=== PATIENT | female | born 1960 | race Caucasian/White ===

== ENCOUNTER → 2016-02-26 | Outpatient (CLI) | payer BC, OTHER ==
[2016-02-26 08:17] LABS: EKG EKG PERFORMED
[2016-02-26 08:42] LABS: Basophils % (A) 1 %; CH 29.5; CHCM 32.8; Eosinophils # (A) 0.1 k/uL (0-0.7); Eosinophils % (A) 3 %; HDW 2.27; HGB 12.1 gm/dL (11.4-16.0); Luc # (Auto) 0.12; Luc % (Auto) 3; Lymphocytes # (A) 1.3 k/uL (1.0-4.8); Lymphocytes % (A) 35 %; MCH 28.9 pg (25.0-35.0); MCV 90.4 fL (80.0-100.0); Mean Platelet Volume 7.9; Monocytes # (A) 0.3 k/uL (0-1.0); Monocytes % (A) 7 %; Neutrophils # (A) 1.8 k/uL (1.3-7.7); Neutrophils % (A) 50 %; RDW 12.7 % (11.5-15.5); WBC 3.7 k/uL (3.8-10.6); WBC (Perox) 3.93
[2016-02-26 08:59] LABS: Anion Gap 10 mmol/L; Carbon Dioxide 27 mmol/L (22-30); Chloride 106 mmol/L (98-107); Potassium 4.7 mmol/L (3.5-5.1); Sodium 143 mmol/L (137-145)
== END | disposition home or self-care (01) ==
LOC: LABPAT 07:53
PROVIDERS: ATTEND Orthopaedic Surgery
DX: Z01.810 Encounter for preprocedural cardiovascular examination (principal); Z01.812 Encounter for preprocedural laboratory examination; M23.91 Unspecified internal derangement of right knee
CPT/HCPCS: 36415; 80051; 85025; 93005

== ENCOUNTER 2016-03-11 07:40 | Day surgery (SDC) | payer BC, OTHER ==
[2016-03-08 08:59] VITALS: BMI 27.4
--- NOTE | 2016-03-10 15:01 | HP ---
DATE OF ADMISSION: 03/11/2016 Oneida Styles is a 55-year-old patient seen with progressive right knee pain. We discussed treatment options, she elected to proceed with right knee arthroscopy. Consent was obtained. PAST MEDICAL HISTORY: Noncontributory. PAST SURGICAL HISTORY: Lap band surgery. DAILY MEDICATIONS: Aspirin. ALLERGIES: None. SOCIAL HISTORY: Patient denies tobacco use. Physical evaluation of the right knee: Range of motion is -1 to 120 degrees. There is mild to moderate joint effusion present. Tenderness along the medial joint line. Positive medial Pascale's. Ligament is stable. Hip rotation without pain. Distal neurovascular exam intact. Radiographs of the right knee revealed osteoarthritic changes involving the medial and patellofemoral compartments. An MRI of the right knee revealed medial meniscal tear, intra-articular effusion and osteoarthritic changes. IMPRESSION: Internal derangement of right knee with medial meniscal tear. PLAN: Right knee arthroscopy with partial meniscectomy and debridement.
[~2016-03-11 07:40] MED LIST: DEXAMETHASONE SOD PHOSPHATE 10 MG/ML 1 ML VIAL IV ONE; LIDOCAINE 1% 20 ML VIAL (10MG/ML) FOR IV START INTRADERMA PRN; MIDAZOLAM 2 MG/2 ML VIAL IV PRN; ONDANSETRON 4 MG/2 ML VIAL IVP ONE; SCOPOLAMINE 1.5MG/72HR PATCH TRANSDERM ONE; ceFAZolin 2 GM in SODIUM CHLORIDE 0.9% 100 ML IVPB ONE
[2016-03-11] MEDS: LACTATED RINGERS 1,000 ML IV SCH ×2 (08:16→08:38)
[2016-03-11] MEDS ORDERED: LIDOCAINE 1% 20 ML VIAL (10MG/ML) FOR IV START INTRADERMA ONE (08:16)
[2016-03-11] MEDS ORDERED: LIDOCAINE 1% INJ 10MG/ML (20 ML MDV) ONE (08:40)
[2016-03-11] MEDS ORDERED: BUPIVACAIN-EPI 0.25%-1:200,000 30 ML VIAL INTRAARTIC ONE ×2 (08:40→09:23)
[2016-03-11] MEDS ORDERED: PHENYLEPHRINE-0.9% NACL SYG 1 MG/10 ML SYRINGE ONE (08:40)
[2016-03-11] MEDS ORDERED: PROPOFOL 10 MG/ML 20 ML VIAL IV ONE (08:40)
[2016-03-11] MEDS ORDERED: fentaNYL (PF) 50 MCG/ML 2 ML AMP ONE (08:40)
[2016-03-11] MEDS ORDERED: MIDAZOLAM 2 MG/2 ML VIAL ONE (08:40)
[2016-03-11] MEDS ORDERED: KETOROLAC 30 MG/ML 1 ML VIAL ONE (08:40)
[2016-03-11] MEDS ORDERED: LACTATED RINGERS 1,000 ML IV ONE (09:16)
--- NOTE | 2016-03-11 09:42 | P.OP ---
Date of Procedure: 03/11/16 Preoperative Diagnosis: Internal derangement right knee Postoperative Diagnosis: 1. Tear medial and lateral meniscus right knee 2. 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 Grade 1/2 chondromalacia lateral femoral condyle right knee 4. Grade 2 chondromalacia patella right knee 5. Reactive synovitis medial and suprapatellar compartments right knee 6. Loose body right knee Procedure(s) Performed: 1. Arthroscopic partial medial and lateral meniscectomy right knee 2. Arthroscopic chondroplasty medial femoral condyle right knee 3. Arthroscopic chondroplasty lateral femoral condyle right knee 4. Arthroscopic chondroplasty patella right knee 5. Arthroscopic partial synovectomy medial and suprapatellar compartments right knee 6. Arthroscopic removal loose body right knee Anesthesia: ABBY, local Surgeon: Roderick Sauceda Estimated Blood Loss (ml): 10 Pathology: none sent Condition: stable Disposition: PACU Indications for Procedure: 55-year-old patient seen with progressive right knee pain. After having treatment options discussed, she elected to proceed with right knee arthroscopy. Operative Findings: See description of procedure Description of Procedure: Patient was taken to the operative suite. Patient underwent a general anesthetic by the department of anesthesia. Patient was given preoperative antibiotics. The right lower extremity was placed in a well-padded arthroscopic leg goldstein. The right leg was prepped and draped in the normal sterile orthopedic fashion. A lateral parapatellar and suprapatellar incision was made. Trochars were inserted. Arthroscopy was initiated. Suprapatellar pouch revealed thick reactive synovitis. The patellofemoral joint appeared to articulate congruently. There was grade 2 chondromalacia small osteochondral tears. The scope was guided into the medial gutter. No loose bodies or plica were identified. The scope was then guided into the medial compartment. A medial parapatellar incision was made. Trocar inserted followed by probe. There was a complex tear involving the posterior horn medial meniscus which extended into the mid body. There were grade 3 and 4 chondromalacia changes of the medial femoral condyle and grade 3 chondromalacia changes of the medial tibial plateau. Reactive synovitis was noted anteriorly. A partial medial meniscectomy was performed on a stable tissue. I performed a chondroplasty of the medial femoral condyle and partial synovectomy. The residual meniscus and osteochondral surface were stable. Scope and probe were then guided into the intercondylar notch. Cruciates were identified, probed and found to be stable. I did encounter a small loose body which was removed with a pituitary without difficulty.. The scope and probe were then guided into lateral compartment. There was an discoid lateral meniscus present with a central tear. At this point a partial lateral meniscectomy was performed. There was grade 1/2 chondromalacia of the lateral femoral condyle with a small osteochondral tear. I used a motorized shaver and debrided that down to stable tissue. The residual osteochondral surface was stable as was the residual meniscus. The scope was in guided back into the suprapatellar compartment. I introduced a motorized shaver into the suprapatellar compartment. I debrided some piecemeal fragments of meniscus. I performed a partial synovectomy and chondroplasty of the patella. The shaver was removed. I took one more look around the entire knee, no residual debris. Instruments were now removed from the joint. The joint was infiltrated with .25% Marcaine. Steri-Strips were applied to the portal sites. Sterile dressings were applied. The patient was placed into a CONRAD hose. No tourniquet was utilized. The patient was awakened, transferred to a bed and taken to recovery stable satisfactory condition.
[2016-03-11 09:43] VITALS: TEMP 98.5
[2016-03-11] MEDS: HYDROmorphone 1 MG/ML 1 ML SYRINGE IVP PRN ×2 (10:03→10:18)
[2016-03-11 11:02] VITALS: PULSE 68
[2016-03-11] MEDS ORDERED: HYDROcodone/APAP 5-325MG 1 EACH TAB PO ONE (11:13)
[2016-03-11 11:26] VITALS: BP 117/74; RESP 16
== END 2016-03-11 11:56 | disposition home or self-care (01) ==
LOC: OR 07:40
PROVIDERS: ATTEND Orthopaedic Surgery
DX: S83.281A Other tear of lateral meniscus, current injury, right knee, initial encounter (principal); S83.241A Other tear of medial meniscus, current injury, right knee, initial encounter; X58.XXXA Exposure to other specified factors, initial encounter; M22.41 Chondromalacia patellae, right knee; M65.9 Synovitis and tenosynovitis, unspecified; M23.41 Loose body in knee, right knee; Z79.82 Long term (current) use of aspirin; Z98.84 Bariatric surgery status
CPT/HCPCS: 29880; 81025; J2250; J1100; J0690; J2405; J2001; J3010; J1885; J1170; J2370; J2704

== ENCOUNTER → 2016-07-16 | Outpatient (CLI) | payer BC, OTHER ==
[2016-07-16 21:33] LABS: Basophils % (A) 0 %; CH 29.3; CHCM 32.5; Eosinophils # (A) 0.2 k/uL (0-0.7); Eosinophils % (A) 3 %; HCT 38.8 % (34.0-46.0); HDW 2.26; HGB 12.8 gm/dL (11.4-16.0); Luc # (Auto) 0.16; Luc % (Auto) 4; Lymphocytes # (A) 1.4 k/uL (1.0-4.8); Lymphocytes % (A) 32 %; MCH 29.8 pg (25.0-35.0); MCV 90.5 fL (80.0-100.0); Mean Platelet Volume 8.6; Monocytes # (A) 0.3 k/uL (0-1.0); Monocytes % (A) 7 %; Neutrophils # (A) 2.5 k/uL (1.3-7.7); Neutrophils % (A) 55 %; RBC 4.29 m/uL (3.80-5.40); RDW 12.5 % (11.5-15.5); WBC 4.5 k/uL (3.8-10.6); WBC (Perox) 4.75
[2016-07-16 21:40] LABS: ALT 22 U/L (9-52); AST 17 U/L (14-36); Alkaline Phosphatase 54 U/L (38-126); Anion Gap 8 mmol/L; Blood Urea Nitrogen 11 mg/dL (7-17); Calcium 9.1 mg/dL (8.4-10.2); Carbon Dioxide 25 mmol/L (22-30); Chloride 108 mmol/L (98-107); Cholesterol 174 mg/dL (<200); Glucose 81 mg/dL (74-99); HDL Cholesterol 64 mg/dL (40-60); Non-African American GFR(MDRD) >60 (>60 ml/min/1.73 sqM); Potassium 4.6 mmol/L (3.5-5.1); Sodium 141 mmol/L (137-145); Total Bilirubin 0.8 mg/dL (0.2-1.3); Total Protein 6.5 g/dL (6.3-8.2); Triglycerides 81 mg/dL (<150)
== END | disposition home or self-care (01) ==
LOC: MMGSC 10:16
PROVIDERS: ATTEND Family Medicine
DX: Z00.00 Encounter for general adult medical examination without abnormal findings (principal)
CPT/HCPCS: 36415; 80053; 80061; 84439; 84443; 85025

== ENCOUNTER → 2016-10-25 | Outpatient (CLI) | payer BC, OTHER ==
[2016-10-25 14:47] VITALS: BP 143/63; PULSE 69; RESP 16; TEMP 98.3; BMI 28.2
--- NOTE | 2016-10-25 15:12 | P.HPBAR ---
Bariatric H&P - History & Physicial H&P Date: 10/25/16 History & Physicial: Visit/CC: band adj Patient initial contact: Initial weight: 99.79 kg Initial weight in pounds: 220.00 Height: 5 ft 6 in Initial BMI: 35.5 Last weight: Current weight: 79.407 kg Current weight in pounds: 175.00 Current BMI: 28.2 Boring body weight (based on NIH guidelines): 58.967 kg Excess body weight loss: 49.9% The patient is a 56 year-old F who presents for Bariatric Assessment. Patient presents for lab band follow up. She's not been seen several years. She feels hungry. She is requesting a fill Past Medical History Smoking Status: Never smoker Surgical - Exam Vital Signs Temp Pulse Resp BP 98.3 F 69 16 143/63 10/25/16 14:44 10/25/16 14:44 10/25/16 14:44 10/25/16 14:44 - General well developed, no distress - Eyes PERRL - ENT normal pinna - Neck no masses - Respiratory normal expansion - Abdomen Abdomen: soft, non tender Bariatric Assessment & Plan Plan: The patient's lap band was adjusted. She had 0.5 mL added to the band. She currently has 5 mL in the band. She'll follow-up in one month. Bariatric Checklist Checklist: Plan: Checklist: EGD: 1. Hiatal hernia: 2. H. Pylori: HgbA1c: Vitamin D: Smoking: Never smoker [place] Psychiatry clearance: Cardiology clearance: Sleep study: Diet journal: VTE risk score: VTE risk level: Rehab needs at discharge:
== END ==
LOC: BARWHC3 14:05
PROVIDERS: ATTEND Surgery
DX: Z48.815 Encounter for surgical aftercare following surgery on the digestive system (principal); Z98.84 Bariatric surgery status
CPT/HCPCS: 99212

== ENCOUNTER → 2016-11-01 | Outpatient (CLI) | payer BC, OTHER ==
[2016-11-01 13:52] VITALS: BP 116/59; PULSE 71; TEMP 97.9; BMI 27.3
--- NOTE | 2016-11-01 14:04 | P.HPBAR ---
Bariatric H&P - History & Physicial H&P Date: 11/01/16 History & Physicial: Visit/CC: lap band follow up Patient initial contact: Initial weight: 99.79 kg Initial weight in pounds: 220.00 Height: 5 ft 6 in Initial BMI: 35.5 Last weight: Current weight: 77.02 kg Current weight in pounds: 169.80 Current BMI: 27.3 [place] body weight (based on NIH guidelines): 58.967 kg Excess body weight loss: 55.7% The patient is a 56 year-old F who presents for Bariatric Assessment. Patient presents today for lap band follow up. She states she has some mild dysphagia. Past Medical History Additional Past Medical History / Comment(s): Blood clot in Left eye (origin unknown)...blood work/dx tests such as carotid u/s performed to determine etiology but remains unknown, History of Any Multi-Drug Resistant Organisms: None Reported Past Surgical History: No Surgical Hx Reported, Bariatric Surgery, Orthopedic Surgery, Tonsillectomy Additional Past Surgical History / Comment(s): Right knee meniscus repair (Feb 2016), Bariatric Lap band May 2009, bilateral cataract surgery (November 2013) , Tonsillectomy 1959's Past Anesthesia/Blood Transfusion Reactions: No Reported Reaction Additional Past Anesthesia/Blood Transfusion Reaction / Comm: No hx of blood transfusion Smoking Status: Never smoker Surgical - Exam Vital Signs Temp Pulse BP 97.9 F 71 116/59 11/01/16 13:47 11/01/16 13:47 11/01/16 13:47 - General well developed, no distress - Eyes PERRL - ENT normal pinna - Respiratory normal expansion - Cardiovascular Rhythm: regular - Abdomen Abdomen: soft, non tender Bariatric Assessment & Plan Plan: The patient's lap band was adjusted. 0.2 mL was removed for a band. She currently has 4.8 mL in the band. She will follow-up one month. Bariatric Checklist Checklist: Plan: Checklist: EGD: 1. Hiatal hernia: 2. H. Pylori: HgbA1c: Vitamin D: Smoking: Never smoker [place] Psychiatry clearance: Cardiology clearance: Sleep study: Diet journal: VTE risk score: VTE risk level: Rehab needs at discharge:
== END | disposition home or self-care (01) ==
LOC: BARWHC3 13:36
PROVIDERS: ATTEND Surgery
DX: Z09 Encounter for follow-up examination after completed treatment for conditions other than malignant neoplasm (principal); Z98.84 Bariatric surgery status
CPT/HCPCS: 99212

== ENCOUNTER → 2016-11-01 | Outpatient (CLI) | payer BC, OTHER ==
--- NOTE | 2016-11-01 12:29 | FL ---
SINGLE CONTRAST BARIUM SWALLOW: CLINICAL HISTORY: 56-year-old female with difficulty keeping food down since having a 0.5 cc fill on 10/25/2016. Patient with lap band placed in 2009. TECHNIQUE: Single contrast exam performed with thin barium. Total fluoroscopy time: 1.4 minutes. Total images: 10. FINDINGS: The assistant professor of biochemistry image shows appropriate positioning of the lap band. There is moderate stool with nonobstru ctive bowel gas pattern. Lung bases are clear. The initial swallow shows only a trickle of contrast that crosses the lap band into the stomach. The patient had a total of 3 small swallows which resulted in pooling of contrast within the esophagus to the mid thoracic level. Recurrent episodes of intraesophageal reflux are demonstrated. This persists at 5 minutes. At 10 minutes, a portion of this contrast has progressed into the stomach but with res idual contrast in the distal esophagus and gastric pouch. No abnormal dilatation of the gastric pouch IMPRESSION: 1. The orientation of the lap band appears appropriate arguing against lap band prolapse. 2. However, there is a moderate to severe obstruction at the level of the lap band suggesting that it may be overfilled. Clinically correlate.
== END ==
LOC: RADFLWHC 11:01
PROVIDERS: ATTEND Surgery
DX: R13.10 Dysphagia, unspecified (principal)
CPT/HCPCS: 74220

== ENCOUNTER → 2017-09-16 | Outpatient (CLI) | payer BC, OTHER ==
--- NOTE | 2017-09-16 16:49 | US ---
EXAMINATION TYPE: US transvaginal DATE OF EXAM: 09/16/2017 COMPARISON: NONE CLINICAL HISTORY: N93.8 Dysfunctional Uterine Bleeding. SPotting on and off TECHNIQUE: Transvaginal sonographic images of the pelvis were acquired. Date of LMP: 1 week ago EXAM MEASUREMENTS: Uterus: 8.8 x 4.7 x 5.2 cm Endometrial Stripe: 0.9 cm Right Ovary: 2.3 x 1.1 x 2.1 cm Left Ovary: 3.2 x 2.0 x 2.0 cm 1. Uterus: Anteverted wnl 2. Endometrium: wnl 3. Right Ovary: wnl 4. Left Ovary: Simple appearing Cystic area visualized measuring 1.4 x 1.4 x 1.3 cm 5. Bilateral Adnexa: wnl 6. Posterior cul-de-sac: wnl IMPRESSION: 1. Cyst on left ovary. Follow-up 6 weeks is recommended.
== END | disposition home or self-care (01) ==
LOC: RADUSWWP 15:33
PROVIDERS: ATTEND Family Medicine
DX: N83.202 Unspecified ovarian cyst, left side (principal)
CPT/HCPCS: 76830

== ENCOUNTER → 2017-12-01 | Outpatient (CLI) | payer BC, OTHER ==
--- NOTE | 2017-12-01 08:20 | US ---
EXAMINATION TYPE: US transvaginal DATE OF EXAM: 12/01/2017 COMPARISON: 09/16/2017 CLINICAL HISTORY: 57-year-old female N83.292 L OVARIAN CYST. F/U previous ovarian cyst TECHNIQUE: Transvaginal (TV). Transvaginal sonographic images of the pelvis were acquired. Date of LMP: SEP 2017 FINDINGS: EXAM MEASUREMENTS: Uterus: 10.3 x 5.5 x 7.4 cm Endometrial Stripe: 1.4 cm Right Ovary: 2.7 x 2.6 x 2.0 cm Left Ovary: 2.8 x 2.6 x 2.2 cm 1. Uterus: Anteverted. Slightly heterogeneous echotexture. 2. Endometrium: Measures at the upper limits of normal in thickness with tiny 2 mm cystic area withi n 3. Right Ovary: Dominant follicle measuring 1.6 x 1.5 x 1.6 cm 4. Left Ovary: Multiple follicles are now present measuring up to 1.4 cm. There is no dominant cyst identified. 5. Bilateral Adnexa: wnl 6. Posterior cul-de-sac: wnl IMPRESSION: 1. Multiple follicular change now noted in the left ovary. No dominant follicle/cyst is present. The largest measures 1.4 cm. 2. A 1.6 cm dominant follicle in the right ovary. 3. The endometrial thickness is at the upper limits of normal (1.4 cm). This should correspond to the late secretory phase of the menstrual cycle. Clinically correlate. A tiny 2 mm cystic area within co uld reflect developing menstrual bleeding. Correlate to ensure status is negative.
== END | disposition home or self-care (01) ==
LOC: RADUSWWP 07:32
PROVIDERS: ATTEND Family Medicine
DX: N83.292 Other ovarian cyst, left side (principal)
CPT/HCPCS: 76830

== ENCOUNTER → 2018-05-25 | Outpatient (CLI) | payer BC, OTHER ==
[2018-05-25 09:22] LABS: Basophils # (A) 0.1 k/uL (0-0.2); Basophils % (A) 1 %; Eosinophils # (A) 0.3 k/uL (0-0.7); Eosinophils % (A) 6 %; HCT 39.4 % (34.0-46.0); HGB 12.5 gm/dL (11.4-16.0); Lymphocytes # (A) 1.9 k/uL (1.0-4.8); Lymphocytes % (A) 35 %; MCH 27.4 pg (25.0-35.0); MCHC 31.8 g/dL (31.0-37.0); MCV 86.3 fL (80.0-100.0); Mean Platelet Volume 6.8; Monocytes # (A) 0.4 k/uL (0-1.0); Monocytes % (A) 8 %; Neutrophils # (A) 2.6 k/uL (1.3-7.7); Neutrophils % (A) 47 %; Platelet Count 311 k/uL (150-450); RBC 4.57 m/uL (3.80-5.40); RDW 14.3 % (11.5-15.5); WBC 5.5 k/uL (3.8-10.6)
== END | disposition home or self-care (01) ==
LOC: LABWHC1 08:40
PROVIDERS: ATTEND Family Medicine
DX: R59.9 Enlarged lymph nodes, unspecified (principal)
CPT/HCPCS: 36415; 85025

== ENCOUNTER 2018-05-26 18:17 | Observation (INO) | payer BC, OTHER ==
[2018-05-26] MEDS ORDERED: SODIUM CHLORIDE 0.9% 1,000 ML IV STA ×2 (18:59)
--- NOTE | 2018-05-26 19:02 | ED ---
Dizziness HPI - General Chief Complaint: Dizziness Stated Complaint: HEADACHE, DIZZINESS, SWOLLEN GLANDS Time Seen by Provider: 05/26/18 18:47 Source: patient, family, RN notes reviewed, old records reviewed Mode of arrival: ambulatory Limitations: no limitations - History of Present Illness Initial Comments: This is a 57-year-old female the ER for evaluation. She presents today for evaluation regards to not feeling well. Patient started with swollen lymph nodes on a cruise a [place] ago. This progressed to neck pain weakness dizziness neck pain muscle strains myalgias headaches. Patient has been seeing her family doctor with no significant improvement in symptoms. Symptoms have been persistent no better or worse times one month. Patient occasionally has headaches,, occasionally works. No fevers. MD Complaint: dizziness, lightheadedness -: week(s) Timing: gradual onset Description: lightheadedness, nausea, other (neck pain) History of Same: Yes History of Trauma: No Severity: moderate Improves With: nothing Worsens With: nothing Associated Symptoms: loss of appetite, weakness - Related Data Home Medications Medication Instructions Recorded Confirmed Aspirin [Adult Low Dose Aspirin EC] 81 mg PO DAILY 03/08/16 05/26/18 Acetaminophen/Diphenhydramine 1 tab PO HS PRN 05/26/18 05/26/18 [Tylenol PM 500-25mg] Letrozole [Femara] 2.5 mg PO BID 05/26/18 05/26/18 Allergies Allergy/AdvReac Type Severity Reaction Status Date / Time No Known Allergies Allergy Verified 05/26/18 18:42 Review of Systems ROS Statement: Those systems with pertinent positive or pertinent negative responses have been documented in the HPI. ROS Other: All systems not noted in ROS Statement are negative. Past Medical History Additional Past Medical History / Comment(s): Blood clot in Left eye (origin unknown)...blood work/dx tests such as carotid u/s performed to determine etiology but remains unknown, History of Any Multi-Drug Resistant Organisms: None Reported Past Surgical History: No Surgical Hx Reported, Bariatric Surgery, Orthopedic Surgery, Tonsillectomy Additional Past Surgical History / Comment(s): Right knee meniscus repair (Feb 2016), Bariatric Lap band May 2009, bilateral cataract surgery (November 2013), Tonsillectomy 1959's, lin carpal tunnel Past Anesthesia/Blood Transfusion Reactions: No Reported Reaction Additional Past Anesthesia/Blood Transfusion Reaction / Comment(s): No hx of blood transfusion Past Psychological History: No Psychological Hx Reported Smoking Status: Never smoker Past Alcohol Use History: None Reported Past Drug Use History: None Reported General Exam Limitations: no limitations General appearance: alert, in no apparent distress Head exam: Present: atraumatic, normocephalic, normal inspection Eye exam: Present: normal appearance, PERRL, EOMI. Absent: scleral icterus, conjunctival injection, periorbital swelling ENT exam: Present: normal exam, mucous membranes moist Neck exam: Present: normal inspection. Absent: tenderness, meningismus, lymphadenopathy Respiratory exam: Present: normal lung sounds bilaterally. Absent: respiratory distress, wheezes, rales, rhonchi, stridor Cardiovascular Exam: Present: regular rate, normal rhythm, normal heart sounds. Absent: systolic murmur, diastolic murmur, rubs, gallop, clicks GI/Abdominal exam: Present: soft, normal bowel sounds. Absent: distended, tenderness, guarding, rebound, rigid Extremities exam: Present: normal inspection, full ROM, normal capillary refill. Absent: tenderness, pedal edema, joint swelling, calf tenderness Back exam: Present: normal inspection Neurological exam: Present: alert, oriented X3, CN II-XII intact Psychiatric exam: Present: normal affect, normal mood Skin exam: Present: warm, dry, intact, normal color. Absent: rash Course Vital Signs 05/26/18 05/26/18 18:31 20:26 Temperature 98.5 F Pulse Rate 99 81 Respiratory 18 19 Rate Blood Pressure 112/67 115/58 O2 Sat by Pulse 98 99 Oximetry - Reevaluation(s) Reevaluation #1: 05/26/18 19:01 medical record is reviewed including prior labs EKG Findings - EKG Comments: EKG Findings:: EKG shows sinus rhythm rate 95, W[place] 150, QRS 170, QTc 512 Medical Decision Making - Medical Decision Making 57 female to the ED co neck pain, weakness, not feeling well, elevated BNP, as well as troponin Leak, will admit for further cardiology evaluation - Lab Data Result diagrams: 05/26/18 18:45 05/26/18 18:45 Lab Results 05/26/18 05/26/18 05/26/18 Range/Units 18:45 18:45 18:45 WBC 8.9 (3.8-10.6) k/uL RBC 4.49 (3.80-5.40) m/uL Hgb 12.5 (11.4-16.0) gm/dL Hct 38.4 (34.0-46.0) % MCV 85.5 (80.0-100.0) fL MCH 27.9 (25.0-35.0) pg MCHC 32.6 (31.0-37.0) g/dL RDW 14.9 (11.5-15.5) % Plt Count 333 (150-450) k/uL Neutrophils % 61 % Lymphocytes % 24 % Monocytes % 8 % Eosinophils % 2 % Basophils % 0 % Neutrophils # 5.5 (1.3-7.7) k/uL Lymphocytes # 2.2 (1.0-4.8) k/uL Monocytes # 0.8 (0-1.0) k/uL Eosinophils # 0.2 (0-0.7) k/uL Basophils # 0.0 (0-0.2) k/uL PT 10.3 (9.0-12.0) sec INR 1.0 (<1.2) APTT 23.9 (22.0-30.0) sec D-Dimer 0.43 (<0.60) mg/L FEU Sodium 138 (137-145) mmol/L Potassium 4.3 (3.5-5.1) mmol/L Chloride 105 (98-107) mmol/L Carbon Dioxide 26 (22-30) mmol/L Anion Gap 7 mmol/L BUN 13 (7-17) mg/dL Creatinine 0.82 (0.52-1.04) mg/dL Est GFR (CKD-EPI)AfAm >90 (>60 ml/min/1.73 sqM) Est GFR (CKD-EPI)NonAf 81 (>60 ml/min/1.73 sqM) Glucose 132 H (74-99) mg/dL Calcium 9.6 (8.4-10.2) mg/dL Phosphorus 5.0 H (2.5-4.5) mg/dL Magnesium 2.0 (1.6-2.3) mg/dL Total Bilirubin 0.6 (0.2-1.3) mg/dL AST 38 H (14-36) U/L ALT 48 (9-52) U/L Alkaline Phosphatase 106 (38-126) U/L Troponin I (0.000-0.034) ng/mL NT-Pro-B Natriuret Pep pg/mL Total Protein 6.2 L (6.3-8.2) g/dL Albumin 3.7 (3.5-5.0) g/dL 05/26/18 05/26/18 Range/Units 18:45 18:45 WBC (3.8-10.6) k/uL RBC (3.80-5.40) m/uL Hgb (11.4-16.0) gm/dL Hct (34.0-46.0) % MCV (80.0-100.0) fL MCH (25.0-35.0) pg MCHC (31.0-37.0) g/dL RDW (11.5-15.5) % Plt Count (150-450) k/uL Neutrophils % % Lymphocytes % % Monocytes % % Eosinophils % % Basophils % % Neutrophils # (1.3-7.7) k/uL Lymphocytes # (1.0-4.8) k/uL Monocytes # (0-1.0) k/uL Eosinophils # (0-0.7) k/uL Basophils # (0-0.2) k/uL PT (9.0-12.0) sec INR (<1.2) APTT (22.0-30.0) sec D-Dimer (<0.60) mg/L FEU Sodium (137-145) mmol/L Potassium (3.5-5.1) mmol/L Chloride (98-107) mmol/L Carbon Dioxide (22-30) mmol/L Anion Gap mmol/L BUN (7-17) mg/dL Creatinine (0.52-1.04) mg/dL Est GFR (CKD-EPI)AfAm (>60 ml/min/1.73 sqM) Est GFR (CKD-EPI)NonAf (>60 ml/min/1.73 sqM) Glucose (74-99) mg/dL Calcium (8.4-10.2) mg/dL Phosphorus (2.5-4.5) mg/dL Magnesium (1.6-2.3) mg/dL Total Bilirubin (0.2-1.3) mg/dL AST (14-36) U/L ALT (9-52) U/L Alkaline Phosphatase (38-126) U/L Troponin I 0.028 (0.000-0.034) ng/mL NT-Pro-B Natriuret Pep 2420 pg/mL Total Protein (6.3-8.2) g/dL Albumin (3.5-5.0) g/dL - Radiology Data Radiology results: report reviewed (CXR is negative for acute diseae, CT brain soft tissue neck orbits negative for acute disaese), image reviewed Disposition Clinical Impression: Neck pain, Elevated troponin, Weakness Disposition: ADMITTED IP TO THIS HOSP Condition: Fair Is patient prescribed a controlled substance at d/c from ED?: No Referrals: Venice Saavedra MD [Primary Care Provider] - 1-2 days
[2018-05-26 19:14] LABS: Basophils % (A) 0 %; Eosinophils # (A) 0.2 k/uL (0-0.7); Eosinophils % (A) 2 %; HCT 38.4 % (34.0-46.0); HGB 12.5 gm/dL (11.4-16.0); Lymphocytes # (A) 2.2 k/uL (1.0-4.8); Lymphocytes % (A) 24 %; MCH 27.9 pg (25.0-35.0); MCHC 32.6 g/dL (31.0-37.0); MCV 85.5 fL (80.0-100.0); Mean Platelet Volume 6.8; Monocytes # (A) 0.8 k/uL (0-1.0); Monocytes % (A) 8 %; Neutrophils # (A) 5.5 k/uL (1.3-7.7); Neutrophils % (A) 61 %; Platelet Count 333 k/uL (150-450); RBC 4.49 m/uL (3.80-5.40); RDW 14.9 % (11.5-15.5); WBC 8.9 k/uL (3.8-10.6)
--- NOTE | 2018-05-26 19:20 | XR ---
EXAMINATION TYPE: XR chest 2V DATE OF EXAM: 05/26/2018 COMPARISON: NONE HISTORY: Weakness TECHNIQUE: Frontal and lateral views of the chest are obtained. FINDINGS: Heart and mediastinum are normal. Lungs are clear of infiltrate. Costophrenic angles are c lear. There are probably small calcified granuloma at the pulmonary usha. There is no pleural effusio n. Bony thorax is intact. There are chest leads. IMPRESSION: No active cardiopulmonary disease.
[2018-05-26 19:31] LABS: ALT 48 U/L (9-52); AST 38 U/L (14-36); Albumin 3.7 g/dL (3.5-5.0); Alkaline Phosphatase 106 U/L (38-126); Anion Gap 7 mmol/L; Blood Urea Nitrogen 13 mg/dL (7-17); Calcium 9.6 mg/dL (8.4-10.2); Carbon Dioxide 26 mmol/L (22-30); Chloride 105 mmol/L (98-107); Glucose 132 mg/dL (74-99); Potassium 4.3 mmol/L (3.5-5.1); Sodium 138 mmol/L (137-145); Total Bilirubin 0.6 mg/dL (0.2-1.3); Total Protein 6.2 g/dL (6.3-8.2)
[2018-05-26 19:49] LABS: D-Dimer 0.43 mg/L FEU (<0.60); Partial Thromboplastin Time 23.9 sec (22.0-30.0); Prothrombin Time 10.3 sec (9.0-12.0)
--- NOTE | 2018-05-26 20:33 | CT ---
EXAMINATION TYPE: CT brain wo con DATE OF EXAM: 05/26/2018 COMPARISON: None HISTORY: headaches, dizziness CT DLP: 1146.6 mGycm Automated exposure control for dose reduction was used. FINDINGS: Ventricles and sulci appear normal. There is no mass effect nor midline shift. There is no sign of in tracranial hemorrhage. The calvarium is intact. There is 4 mm area of calcification in the anterior l eft thalamus. IMPRESSION: NO ACUTE INTRACRANIAL ABNORMALITY. NO EVIDENCE OF CORTICAL INFARCT OR CEREBRAL EDEMA.
[2018-05-26] MEDS ORDERED: NITROGLYCERIN SL TABS 0.4 MG TAB SUBLINGUAL PRN (20:35)
[2018-05-26] MEDS ORDERED: ASPIRIN 81 MG PO STA (20:35)
--- NOTE | 2018-05-26 20:35 | CT ---
EXAMINATION TYPE: CT facial bones w con DATE OF EXAM: 05/26/2018 COMPARISON: None HISTORY: headaches, dizziness CT DLP: 378.7 mGycm Automated exposure control for dose reduction was used. CONTRAST: CT scan of the facial bones is performed with IV Contrast, patient injected with 100 mL of Isovue 300 . TECHNIQUE: CT scan of the sinuses is performed without contrast, axial images are obtained, coronal r eformatted images are also reviewed. FINDINGS: Submandibular salivary glands are symmetric. Mandibular ring is intact. The maxilla is inta ct. The zygomatic arches appear normal. There is fairly normal aeration of the paranasal sinuses. The re is some mucosal thickening right frontal sinus. Nasal bone is intact. Orbital margins are intact. There is no evidence of retro-orbital mass. There is no pathologic enhancement. IMPRESSION: Minimal right frontal sinusitis. Otherwise negative exam.
--- NOTE | 2018-05-26 20:43 | CT ---
EXAMINATION TYPE: CT soft tissue neck w con DATE OF EXAM: 05/26/2018 8:11 PM COMPARISON: None HISTORY: sore throat, swelling CT DLP: 215.1 mGycm Automated exposure control for dose reduction was used. CONTRAST: CT scan of the neck is performed following with IV Contrast, patient injected with 100 mL of Isovue 3 00. Axial images are obtained, coronal and sagittal reformatted images are reviewed. FINDINGS: Multiple axial sections were obtained from the level of the aortic arch to the frontal sinuses with i ntravenous contrast. The visualized trachea appears normal. Epiglottis appears normal. Prevertebral soft tissues appear no rmal. Tonsils and adenoids are within normal limits. There is no evidence of a pharyngeal mass. The t ongue appears normal. There is normal branching pattern of the great vessels on the aortic arch. There is no sign of medias tinal adenopathy. Thyroid gland is symmetric. There is normal contrast opacification of the carotid a nd vertebral arteries. There is normal contrast opacification of the jugular veins. There are anterio r triangle cervical lymph nodes measure up to 1 cm. I see no significant cervical adenopathy. The submandibular salivary glands are symmetric. Parotid glands are symmetric. IMPRESSION: Negative CT scan of the cervical soft tissues.
[2018-05-26] MEDS ORDERED: SODIUM CHLORIDE 0.9% 1,000 ML IV SCH (20:45)
[2018-05-26] MEDS ORDERED: ACETAMINOPHEN TAB 325 MG TAB PO PRN (22:07)
[2018-05-26] MEDS ORDERED: NALOXONE 0.4 MG/ML 1 ML VIAL IV PRN (22:07)
[2018-05-26] MEDS ORDERED: ONDANSETRON 4 MG/2 ML VIAL IVP PRN (22:07)
[2018-05-26] MEDS ORDERED: NON-FORMULARY DRUG (Acetaminophen/Diphenhydramine [Tylenol Pm 500-25mg] 1 TAB) PO PRN (22:09)
[2018-05-26] MEDS ORDERED: BUTALB/APAP/CAFF 50-325-40MG TAB PO PRN (22:15)
[2018-05-26] MEDS ORDERED: FLUTICASONE 50MCG/SPRAY NASAL 16GM EA NOSTRIL PRN (22:16)
--- NOTE | 2018-05-26 22:16 | P.HPIM ---
History of Present Illness H&P Date: 05/26/18 Chief Complaint: headache Patient is a 57-year-old female with no known past medical history who presents the ER with multiple complaints including neck pain, dizziness, and headache. In the ER she underwent an extensive evaluation. Her initial vital signs were found to be within normal limits. Initial laboratory analysis was remarkable for an elevated phosphorus at 5 and an elevated BNP at 2400. Initial EKG did not show any ischemic changes. She underwent a CT head which showed right frontal sinusitis. She underwent a CT soft tissue neck which showed no acute process and a facial CT which showed no acute process. There is concern for her elevated BNP and she was therefore placed in observation. Patient seen and examined at bedside in the ER. She reports that she came to the ER today because her headache was so bad she could no longer function. She states that for the last 1 month she has had a headache every day on waking that lasts throughout the day. She states it occurred at the base of her skull on both sides and around her eyes. She states that Tylenol has not been helping. She has never had headaches like this before. She denies any associated nausea or vomiting. She does not have problems tolerating heat or cold. She also complains of some pain in her upper back but she does work full-time at a part- time job. She denies any numbness or tingling down into her fingers or hands or weakness of her shoulders or hands. She reports that today she got short of breath walking up the stairs this is unusual for her. She walks up 2 flights of stairs every day and today she had to rest in between flights. She also reports that when she came out of the shower today she felt extremely dizzy and had to lay back down. This quickly passed. It was not associated with any chest pain, shortness of breath, palpitations. She reports that she went on a cruise approximately one month ago and has not felt right since. She reports that she had some small lymphadenopathy on a cruise. She saw Dr. Kent approximately one week ago was noted to have swollen lymph nodes. She states that Dr. Renetta Huizar also noted an 11 pound weight loss over 6 months. Of time and wanted her referred to oncology. She had a mammogram last month which was normal. She also reports that she's had a colonoscopy in the past and believe she is due for another 1 and she had polyps. She denies any bright red blood in her stools or dark tarry stools. She is not having any dysuria. She just overall feels the canal. She also reports neck pain at the front of her neck along the area of her carotid arteries it is bilateral. It is worse with movement. She reports that it feels as though she is going to get a sore throat. She denies any co ugh, cold, runny nose, or stuffy nose. She is frustrated that she has not started feeling better. She also reports that she started menopause approximately one month ago. She's been having hot flashes and has been unable to sleep at night. She started on Femara 3 days ago and her sleep has improved up until last night. Review of Systems Pertinent positives and negatives as discussed in HPI, a complete review of systems was performed and all other systems are negative. Past Medical History Additional Past Medical History / Comment(s): Blood clot in Left eye (origin unknown)...blood work/dx tests such as carotid u/s performed to determine etiology but remains unknown, History of Any Multi-Drug Resistant Organisms: None Reported Past Surgical History: No Surgical Hx Reported, Bariatric Surgery, Orthopedic Surgery, Tonsillectomy Additional Past Surgical History / Comment(s): Right knee meniscus repair (Feb 2016), Bariatric Lap band May 2009, bilateral cataract surgery (November 2013), Tonsillectomy , lin carpal tunnel Past Anesthesia/Blood Transfusion Reactions: No Reported Reaction Additional Past Anesthesia/Blood Transfusion Reaction / Comment(s): No hx of blood transfusion Past Psychological History: No Psychological Hx Reported Smoking Status: Never smoker Past Alcohol Use History: None Reported Past Drug Use History: None Reported Additional History: Lives with her and adult daughter. 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 Reports no family hx of cancer or heart disease Medications and Allergies Home Medications Medication Instructions Recorded Confirmed Type Aspirin [Adult Low Dose Aspirin EC] 81 mg PO DAILY 03/08/16 05/26/18 History Acetaminophen/Diphenhydramine 1 tab PO HS PRN 05/26/18 05/26/18 History [Tylenol PM 500-25mg] Letrozole [Femara] 2.5 mg PO BID 05/26/18 05/26/18 History Allergies Allergy/AdvReac Type Severity Reaction Status Date / Time No Known Allergies Allergy Verified 05/26/18 18:42 Physical Exam Osteopathic Statement: *. No significant issues noted on an osteopathic structural exam other than those noted in the History and Physical/Consult. Vitals: Vital Signs Temp Pulse Resp BP Pulse Ox 05/26/18 20:26 81 19 115/58 99 05/26/18 18:31 98.5 F 99 18 112/67 98 Intake and Output 05/26/18 05/26/18 05/26/18 06:59 14:59 22:59 Other: Weight 73.663 kg General: non toxic, no distress, appears at stated age, normal weight Derm: no unusual rashes/lesions no unusual ecchymoses, warm, dry Head: atraumatic, normocephalic, symmetric Eyes: EOMI, no lid lag, anicteric sclera, pupils equal round reactive to light ENT: Nose and ears atraumatic, no thrush, no pharyngeal erythema Neck: No thyromegaly, no cervical lymphadenopathy, trachea midline, supple Mouth: no lip lesion, mucus membranes moist Cardiovascular: S1S2 reg, no murmur, positive posterior tibial pulse bilateral, no edema, capillary refill less than 2 seconds Lungs: CTA bilateral, no rhonchi, no rales , no accessory muscle use Abdominal: soft, nontender to palpation, no guarding, no appreciable organomegaly, normal bowel sounds Ext: no gross muscle atrophy, muscle strength 5 out of 5 in all 4 extremities grossly, no contractures, Neuro: CN II-XI grossly intact, light touch intact all 4 extremities, finger to nose within normal limits, Psych: Alert, oriented, appropriate affect Results CBC & Chem 7: 05/26/18 18:45 05/26/18 18:45 Labs: Abnormal Lab Results - Last 24 Hours (Table) 05/26/18 Range/Units 18:45 Glucose 132 H (74-99) mg/dL Phosphorus 5.0 H (2.5-4.5) mg/dL AST 38 H (14-36) U/L Total Protein 6.2 L (6.3-8.2) g/dL Comments: CT head-no acute intracranial abnormality CT cervical soft tissues of the neck-negative CT facial bone-minimal right frontal sinusitis Thrombosis Risk Factor Assmnt - DVT/VTE Prophylaxis DVT/VTE Prophylaxis: Low risk, early ambulation encouraged Assessment and Plan Assessment: Headache, neck ache, dizziness -Suspect secondary to changes associated with menopause -Check telemetry, orthostatic vital signs -Fioricet for headache -stop Femara as this is an aromatase inhibitor and worsen the symptoms of menopause. -? side effects of femara with dizziness starting after medication started Exercise intolerance with elevated BNP - check echo - tele - orthostatic vital signs - D-Dimer negative - check B 12 and ferritin levels, TSH normal on 05/19/18 Perimenopausal symptoms -stop Femara as this is an aromatase inhibitor and is not indicated for perimenopausal state that is used with breast cancer treatment and can actually worsen the signs and symptoms of menopause. The patient is placed in observation with an anticipated less than 2 per night stay for evaluation of headache. Surrogate decision-maker: DVT prophylaxis: Early ambulation Discussed with: Patient Anticipated discharge date: in AM if echo negative Anticipated discharge place: home A total of 70 minutes was spent on the care of this complex patient more than 50% of the time was spent in counseling and care coordination.
[2018-05-27 06:38] LABS: Cholesterol 201 mg/dL (<200); HDL Cholesterol 43 mg/dL (40-60); LDL Cholesterol,Calculated 134 mg/dL (0-99); Triglycerides 122 mg/dL (<150)
[2018-05-27 06:51] LABS: Glucose,Whole Blood 89 mg/dL (75-99)
[2018-05-27] MEDS ORDERED: LORATADINE 10 MG TAB PO SCH (09:00)
[2018-05-27] MEDS ORDERED: ASPIRIN 325 MG TAB PO SCH (09:00)
[2018-05-27 09:09] VITALS: RESP 16
[2018-05-27 10:39] LABS: Iron Saturation 39.68 (12.00-45.00)
--- NOTE | 2018-05-27 10:57 | ECHOF ---
Referral Reason:cp MEASUREMENTS -------- HEIGHT: 165.1 cm WEIGHT: 73.5 kg BP: RVIDd: 3.0 cm (< 3.3) IVSd: 1.3 cm (0.6 - 1.1) LVIDd: 4.0 cm (3.9 - 5.3) LVPWd: 1.5 cm (0.6 - 1.1) IVSs: 1.5 cm LVIDs: 2.8 cm LVPWs: 1.7 cm LA Diam: 3.8 cm (2.7 - 3.8) LAESV Index (A-L): 35.29 ml/m Ao Diam: 2.8 cm (2.0 - 3.7) AV Cusp: 1.3 cm (1.5 - 2.6) LA Diam: 4.0 cm (2.7 - 3.8) MV EXCURSION: 25.683 mm (> 18.000) MV EF SLOPE: 90 mm/s (70 - 150) EPSS: 0.3 cm MV E Quinn: 0.74 m/s MV DecT: 208 ms MV A Quinn: 0.65 m/s MV E/A Ratio: 1.13 RAP: 5.00 mmHg RVSP: 20.69 mmHg FINDINGS -------- Sinus rhythm. This was a technically good study. The left ventricular size is normal. There is mild concentric left ventricular hypertrophy. Overa ll left ventricular systolic function is normal with, an EF between 55 - 60 %. The right ventricle is normal in size. The left atrium is moderately dilated. LA is moderately dilated 34-39 ml/m2 The right atrial size is normal. ASD VS PFO. There is mild aortic valve sclerosis. Trace amount of aortic regurgitation. The mitral valve leaflets are mildly thickened. Mild mitral annular calcification present. Mild m itral regurgitation is present. Mild tricuspid regurgitation present. There is no evidence of pulmonary hypertension. The right v entricular systolic pressure, as measured by Doppler, is 20.69mmHg. There is no pulmonic regurgitation present. The aortic root size is normal. There is a trivial pericardial effusion present. CONCLUSIONS -------- 1. The left ventricular size is normal. 2. There is mild concentric left ventricular hypertrophy. 3. Overall left ventricular systolic function is normal with, an EF between 55 - 60 %. 4. The right ventricle is normal in size. 5. The left atrium is moderately dilated. 6. LA is moderately dilated 34-39 ml/m2 7. The right atrial size is normal. 8. ASD VS PFO. 9. There is mild aortic valve sclerosis. 10. Trace amount of aortic regurgitation. 11. The mitral valve leaflets are mildly thickened. 12. Mild mitral annular calcification present. 13. Mild mitral regurgitation is present. 14. Mild tricuspid regurgitation present. 15. There is no evidence of pulmonary hypertension. 16. The right ventricular systolic pressure, as measured by Doppler, is 20.69mmHg. 17. There is no pulmonic regurgitation present. 18. The aortic root size is normal. 19. There is a trivial pericardial effusion present. MANAGER MONEY: Anastasia Brennan RDCS
[2018-05-27 12:22] VITALS: BP 104/70; PULSE 83; TEMP 98.2
--- NOTE | 2018-05-27 13:10 | P.DS ---
Providers Date of admission: 05/26/18 20:36 Expected date of discharge: 05/27/18 Attending physician: Ole Alcala MD [facility]: final diagnosis upon discharge Acute sinusitis perimanopausal symptoms subjective report of weight loss, consider OP age appropriate cancer screening moderate left atrium dilated, with ASD vs PFO, referral to OP cardiology hospital course Patient is a 57-year-old female with no known past medical history who presents the ER with multiple complaints including severe headache, with no focal neuro deficits. In the ER she underwent an extensive evaluation. Her initial vital signs were found to be within normal limits. Initial laboratory analysis was remarkable for an elevated phosphorus at 5 and an elevated BNP at 2400. Initial EKG did not show any ischemic changes. She underwent a CT head which showed right frontal sinusitis. She underwent a CT soft tissue neck which showed no acute process and a facial CT which showed no acute process. There is concern for her elevated BNP and shortness of breath upon climbing stairs. She was therefore placed in observation. Echocardiogram performed and showed LVEF of 55-60%. Patient seen and examined on day of discharge reports improvement in her headache denies any chest pain or trouble breathing Constitutional: vital signs stable, Not in acute distress, pleasant, conversant ENMT: Normocephalic, atraumatic, oropharynx clear, no erythema/exudate , tenderness to palpation of the maxillary and frontal sinuses Lungs: Clear to auscultation bilaterally, clear to percussion, normal respiratory effort no use of accessory muscles Cardiovascular: Regular rate and rhythm, no murmurs, no gallops, no rubs, no peripheral edema Gastrointestinal: Soft, no tenderness to palpation, no palpable hepatosplenomegally, bowel sounds positive, no abdominal wall hernias Extremities: No digital cyanosis or clubbing, peripheral pulses palpable and equal over bilateral radial arteries and dorsalis pedis artery, no calf muscle tenderness Psych: Alert, oriented to place, person and time, appropriate affect, intact judgment Neuro: Cranial nerves II-XII grossly intact, no focal sensory deficits to touch I had prolonged discussion with the patient regarding her symptoms which are suggestive of perimenopausal symptoms. She also has acute sinusitis. For hot flashes I suggested starting gabapentin at night which can be titrated to control her symptoms as an outpatient with her PCP I will also start her on a course of Sandee-D for 7 days along with Flonase and nasal saline washes to help with her symptoms of sinusitis 4 severe headaches associated with sinusitis I suggested using NSAIDs with meals Patient was discharged in stable clinical condition she verbalized understanding of the above plan follow up with PCP, and cardiology regarding echo findings as mentioned above 45 minutes were spent discharging this patient, and more than 50% of the time was spent in counseling the patient and family and in coordinating care. Patient Condition at Discharge: Good Plan - Discharge Summary Discharge Rx Participant: No New Discharge Prescriptions: No Action Aspirin [Adult Low Dose Aspirin EC] 81 mg PO DAILY Acetaminophen/Diphenhydramine [Tylenol PM 500-25mg] 1 tab PO HS PRN PRN Reason: Insomnia AND PAIN Discharge Medication List Aspirin [Adult Low Dose Aspirin EC] 81 mg PO DAILY 03/08/16 [History] Acetaminophen/Diphenhydramine [Tylenol PM 500-25mg] 1 tab PO HS PRN 05/26/18 [History] Follow up Appointment(s)/Referral(s): Venice Saavedra MD [Primary Care Provider] - 1-2 days
== END 2018-05-27 14:50 | disposition home or self-care (01) ==
LOC: EC 18:17 → 1SOBS 20:36
PROVIDERS: ADMIT Internal Medicine; ATTEND Internal Medicine
DX: J01.10 Acute frontal sinusitis, unspecified (principal); N95.1 Menopausal and female climacteric states; M54.2 Cervicalgia; R53.1 Weakness; R77.8 Other specified abnormalities of plasma proteins; Z79.82 Long term (current) use of aspirin; E83.39 Other disorders of phosphorus metabolism; Z79.899 Other long term (current) drug therapy
CPT/HCPCS: 96360; 99285; 36415; 93005; 93306; 85379; 83880; 80061; 80053; 82607; 82728; 83540; 83550; 83735; 84100; 84484 ×2; 85025; 85610; 85730; 71046; 70487; 70491; 70450; G0378 ×2; Q9967

== ENCOUNTER 2018-06-02 23:25 | Inpatient (IN) | payer BC, OTHER ==
[2018-06-02] MEDS ORDERED: SODIUM CHLORIDE 0.9% 2,000 ML IV STA (23:58)
[2018-06-03 00:17] LABS: Basophils % (A) 0 %; Eosinophils # (A) 0.6 k/uL (0-0.7); Eosinophils % (A) 5 %; HCT 36.5 % (34.0-46.0); HGB 11.9 gm/dL (11.4-16.0); Lymphocytes # (A) 1.5 k/uL (1.0-4.8); Lymphocytes % (A) 14 %; MCH 27.9 pg (25.0-35.0); MCHC 32.7 g/dL (31.0-37.0); MCV 85.3 fL (80.0-100.0); Mean Platelet Volume 6.4; Monocytes # (A) 0.6 k/uL (0-1.0); Monocytes % (A) 6 %; Neutrophils % (A) 71 %; Platelet Count 371 k/uL (150-450); RBC 4.28 m/uL (3.80-5.40); RDW 14.7 % (11.5-15.5); WBC 11.3 k/uL (3.8-10.6)
[2018-06-03 00:29] LABS: Albumin 3.9 g/dL (3.5-5.0); Calcium 9.6 mg/dL (8.4-10.2); Total Bilirubin 0.5 mg/dL (0.2-1.3); Total Protein 6.6 g/dL (6.3-8.2)
[2018-06-03 00:33] LABS: Appearance,Urine Clear (Clear); Bacteria,Urine Rare /hpf; Bilirubin,Urine Negative (Negative); Blood,Urine Trace (Negative); Color,Urine Light Yellow; Glucose,Urine (UA) Negative (Negative); Ketones,Urine Negative (Negative); Leukocyte Esterase,Urine Trace (Negative); Mucus,Urine Rare /hpf; Nitrite,Urine Negative (Negative); PH, Urine 6.5 (5.0-8.0); Protein,Urine 1+ (Negative); RBC,Urine 2 /hpf (0-5); Specific Gravity,Urine 1.007 (1.001-1.035); Squamous Epithelial Cell,Urine 2 /hpf (0-4); Urobilinogen,Urine <2.0 mg/dL (<2.0); WBC,Urine 9 /hpf (0-5)
[2018-06-03 00:42] LABS: Potassium 6.4 mmol/L (3.5-5.1)
--- NOTE | 2018-06-03 00:43 | XR ---
EXAM: XR Abdomen, 2 Views CLINICAL HISTORY: ITS.REASON XR Reason: abdominal pain TECHNIQUE: Frontal view of the abdomen/pelvis with upright view of the abdomen. COMPARISON: None. FINDINGS: Intraperitoneal space: No free air. Gastrointestinal tract: Postsurgical changes seen related to gastric band procedure. No evidence of slipped band. No dilation. Bones/joints: Degenerative changes seen in the spine. IMPRESSION: No acute abnormality.
[2018-06-03] MEDS ORDERED: SODIUM CHLORIDE 0.9% 1,000 ML IV ONE (00:55)
[2018-06-03] MEDS ORDERED: DEXTROSE 50% SYRINGE 50 ML IVP STA (00:58)
[2018-06-03] MEDS ORDERED: INSULIN REGULAR 100 UNIT/ML VIAL IV ONE ×2 (00:58→08:36)
[2018-06-03] MEDS ORDERED: MORPHINE SULFATE 4 MG/ML SYRINGE IVP STA ×2 (01:01→01:15)
[2018-06-03] MEDS ORDERED: CALCIUM GLUCONATE 1 GM in SODIUM CHLORIDE 0.9% 100 ML IVPB ONE (01:15)
--- NOTE | 2018-06-03 01:15 | ED ---
Abdominal Pain HPI - General Chief Complaint: Abdominal Pain Stated Complaint: Abdominal Pain Time Seen by Provider: 06/02/18 23:58 Source: patient, family Mode of arrival: wheelchair Limitations: no limitations - History of Present Illness Initial Comments: S is a pleasant 57-year-old female who was recently admitted to the hospital for evaluation of headache last weekend she was treated for sinusitis and discharged home. Patient reports that throughout the week she's had persistent abdominal discomfort seems to be more pronounced in the bilateral lower quadrants but does radiate throughout the entire abdomen.. Patient also reports a pretty constant urge to urinate but is producing minimal urine. She denies any dysuria. Patient reports that due to the abdominal discomfort she did follow-up with her general surgeon who performed her band procedure in 2009, she did have all the fluid removed from her lap band which mildly improved her symptoms. Reports that after returning home from her general surgeon office today she was able to eat some soup however when she laid down to go to bed she was writhing in pain which prompted her bring her to the ER for evaluation. states that after discharge from the hospital last week she was prescribed an ALLERGY medication but denies any other changes in her medications. - Related Data Home Medications Medication Instructions Recorded Confirmed Aspirin [Adult Low Dose Aspirin EC] 81 mg PO DAILY 03/08/16 05/27/18 Previous Rx's Medication Instructions Recorded Fexofenadine/Pseudoephedrine 1 each PO DAILY 7 Days #7 05/27/18 [Sandee-D 24 Hour Tablet] tab.er.24h Fluticasone Nasal [place] [Flonase 1 spray EA NOSTRIL BID 10 Days #1 05/27/18 Nasal [place]] bottle Gabapentin [Neurontin] 300 mg PO HS #30 capsule 05/27/18 Ibuprofen 600 mg PO TID PRN #24 tablet 05/27/18 Sodium Chloride [Saline Nasal 1 spray EA NOSTRIL QID PRN 7 Days 05/27/18 [place]] #30 ml Allergies Allergy/AdvReac Type Severity Reaction Status Date / Time No Known Allergies Allergy Verified 06/02/18 23:39 Review of Systems ROS Statement: Those systems with pertinent positive or pertinent negative responses have been documented in the HPI. ROS Other: All systems not noted in ROS Statement are negative. Past Medical History Additional Past Medical History / Comment(s): Blood clot in Left eye (origin unknown)...blood work/dx tests such as carotid u/s performed to determine etiolo gy but remains unknown, History of Any Multi-Drug Resistant Organisms: None Reported Past Surgical History: Bariatric Surgery, Orthopedic Surgery, Tonsillectomy Additional Past Surgical History / Comment(s): Right knee meniscus repair (Feb 2016), Bariatric Lap band May 2009, bilateral cataract surgery (November 2013), Tonsillectomy 1959's, lin carpal tunnel Past Anesthesia/Blood Transfusion Reactions: No Reported Reaction Additional Past Anesthesia/Blood Transfusion Reaction / Comment(s): No hx of blood transfusion Past Psychological History: No Psychological Hx Reported Smoking Status: Never smoker Past Alcohol Use History: None Reported Past Drug Use History: None Reported - Past Family History Father Family Medical History: Unable to Obtain Additional Family Medical History / Comment(s): does not know who her biologic father is Mother Additional Family Medical History / Comment(s): no hx of cancer or heart disease. Reports no family hx of cancer or heart disease General Exam - General Exam Comments Initial Comments: Physical Exam GENERAL: Uncomfortable appearing HENT: Normocephalic, Atraumatic. EYES: PERRL, EOMI PULMONARY: Unlabored respirations. CARDIOVASCULAR: Tachycardic, regular ABDOMEN: Diffuse tenderness SKIN: Skin is clear with no lesions or rashes and otherwise unremarkable. : Deferred NEUROLOGIC: Patient is alert and oriented x3. Moving all extremities spontaneously MUSCULOSKELETAL: Normal extremities with adequate strength and full range of motion. No lower extremity swelling or edema. No calf tenderness. PSYCHIATRIC: Normal psychiatric evaluation. Limitations: no limitations Limitations: no limitations Course Vital Signs 06/02/18 06/03/18 23:35 01:55 Temperature 98.2 F Pulse Rate 114 H 100 Respiratory 18 20 Rate Blood Pressure 145/86 144/87 O2 Sat by Pulse 98 93 L Oximetry Medical Decision Making - Medical Decision Making The patient was seen and evaluated, history obtained from patient and review of medical record Labs ordered Labs with multiple critical abnormalities - Acute kidney failure hyperkalemia as well as elevated lipase and transaminases, leukocytosis, hemoglobin stable Any acute kidney failure CT of the abdomen without contrast was ordered however by mouth contrast will be administered to evaluate the lap band Hyperkalemia was treated with IV fluids, insulin, D50 and calcium EKG was obtained at 2:23 AM, rate is 112 rhythm is sinus tachycardia there is normal axis there are normal intervals, VT 160, QRS 84, QTC is 469 there is no acute ST elevations or depressions there is no evidence of acute ischemia or infarction. There is no significant peaking of the T waves. CT with pleural, pericardial effusions and ascities No abnormalities of kidneys Patient care discussed with Dr. Alcala of the [facility] team who accepts the admission and agrees with plan for consult to nephrology and general agrees with plan for aggressive IV fluid resuscitation and pain management. - Lab Data Result diagrams: 06/02/18 23:49 06/02/18 23:49 Lab Results 06/02/18 06/02/18 06/02/18 Range/Units 23:49 23:49 23:49 WBC 11.3 H (3.8-10.6) k/uL RBC 4.28 (3.80-5.40) m/uL Hgb 11.9 (11.4-16.0) gm/dL Hct 36.5 (34.0-46.0) % MCV 85.3 (80.0-100.0) fL MCH 27.9 (25.0-35.0) pg MCHC 32.7 (31.0-37.0) g/dL RDW 14.7 (11.5-15.5) % Plt Count 371 (150-450) k/uL Neutrophils % 71 % Lymphocytes % 14 % Monocytes % 6 % Eosinophils % 5 % Basophils % 0 % Neutrophils # 8.0 H (1.3-7.7) k/uL Lymphocytes # 1.5 (1.0-4.8) k/uL Monocytes # 0.6 (0-1.0) k/uL Eosinophils # 0.6 (0-0.7) k/uL Basophils # 0.0 (0-0.2) k/uL Sodium 136 L (137-145) mmol/L Potassium 6.4 H* (3.5-5.1) mmol/L Chloride 101 (98-107) mmol/L Carbon Dioxide 22 (22-30) mmol/L Anion Gap 13 mmol/L BUN 56 H (7-17) mg/dL Creatinine 9.75 H* (0.52-1.04) mg/dL Est GFR (CKD-EPI)AfAm 5 (>60 ml/min/1.73 sqM) Est GFR (CKD-EPI)NonAf 4 (>60 ml/min/1.73 sqM) Glucose 91 (74-99) mg/dL Plasma Lactic Acid Ric 0.6 L (0.7-2.0) mmol/L Calcium 9.6 (8.4-10.2) mg/dL Total Bilirubin 0.5 (0.2-1.3) mg/dL AST 38 H (14-36) U/L ALT 46 (9-52) U/L Alkaline Phosphatase 171 H (38-126) U/L Total Protein 6.6 (6.3-8.2) g/dL Albumin 3.9 (3.5-5.0) g/dL Amylase 138 H (30-110) U/L Lipase 917 H (23-300) U/L Urine Color Urine Appearance (Clear) Urine pH (5.0-8.0) Ur Specific [place] (1.001-1.035) Urine Protein (Negative) Urine Glucose (UA) (Negative) Urine Ketones (Negative) Urine Blood (Negative) Urine Nitrite (Negative) Urine Bilirubin (Negative) Urine Urobilinogen (<2.0) mg/dL Ur Leukocyte Esterase (Negative) Urine RBC (0-5) /hpf Urine WBC (0-5) /hpf Ur Squamous Epith Cells (0-4) /hpf Urine Bacteria (None) /hpf Urine Mucus (None) /hpf 06/03/18 Range/Units 00:02 WBC (3.8-10.6) k/uL RBC (3.80-5.40) m/uL Hgb (11.4-16.0) gm/dL Hct (34.0-46.0) % MCV (80.0-100.0) fL MCH (25.0-35.0) pg MCHC (31.0-37.0) g/dL RDW (11.5-15.5) % Plt Count (150-450) k/uL Neutrophils % % Lymphocytes % % Monocytes % % Eosinophils % % Basophils % % Neutrophils # (1.3-7.7) k/uL Lymphocytes # (1.0-4.8) k/uL Monocytes # (0-1.0) k/uL Eosinophils # (0-0.7) k/uL Basophils # (0-0.2) k/uL Sodium (137-145) mmol/L Potassium (3.5-5.1) mmol/L Chloride (98-107) mmol/L Carbon Dioxide (22-30) mmol/L Anion Gap mmol/L BUN (7-17) mg/dL Creatinine (0.52-1.04) mg/dL Est GFR (CKD-EPI)AfAm (>60 ml/min/1.73 sqM) Est GFR (CKD-EPI)NonAf (>60 ml/min/1.73 sqM) Glucose (74-99) mg/dL Plasma Lactic Acid Ric (0.7-2.0) mmol/L Calcium (8.4-10.2) mg/dL Total Bilirubin (0.2-1.3) mg/dL AST (14-36) U/L ALT (9-52) U/L Alkaline Phosphatase (38-126) U/L Total Protein (6.3-8.2) g/dL Albumin (3.5-5.0) g/dL Amylase (30-110) U/L Lipase (23-300) U/L Urine Color Light Yellow Urine Appearance Clear (Clear) Urine pH 6.5 (5.0-8.0) Ur Specific [place] 1.007 (1.001-1.035) Urine Protein 1+ H (Negative) Urine Glucose (UA) Negative (Negative) Urine Ketones Negative (Negative) Urine Blood Trace H (Negative) Urine Nitrite Negative (Negative) Urine Bilirubin Negative (Negative) Urine Urobilinogen <2.0 (<2.0) mg/dL Ur Leukocyte Esterase Trace H (Negative) Urine RBC 2 (0-5) /hpf Urine WBC 9 H (0-5) /hpf Ur Squamous Epith Cells 2 (0-4) /hpf Urine Bacteria Rare H (None) /hpf Urine Mucus Rare H (None) /hpf Critical Care Time Critical Care Time: Yes Total Critical Care Time: 30 Critical Care Time: Critical care time was exclusive of separately billable procedures and treating other patients. Critical care was necessary to treat or prevent imminent or life-threatening deterioration due to hyperkalemia Critical care was time spent personally by me on the following activities: development of treatment plan with patient or surrogate, discussions with consultants, discussions with primary provider, evaluation of patient's response to treatment, examination of patient, obtaining history from patient or surrogate, ordering and performing treatments and interventions, ordering and review of laboratory studies, ordering and review of radiographic studies, pulse oximetry, re-evaluation of patient's condition and review of old charts. Disposition Clinical Impression: Renal failure, Pancreatitis, Ascites, Abdominal pain Disposition: ADMITTED IP TO THIS [facility] Condition: Serious
--- NOTE | 2018-06-03 01:22 | CT ---
EXAM: CT Abdomen and Pelvis Without Intravenous Contrast CLINICAL HISTORY: ITS.REASON CT Reason: Pain TECHNIQUE: Axial computed tomography images of the abdomen and pelvis without intravenous contrast. CTDI is 10 mGy and DLP is 513 mGy-cm. This CT exam was performed using one or more of the following dose reduction techniques: automated exposure control, adjustment of the mA and/or kV according to patient size, and/or use of iterative reconstruction technique. COMPARISON: No relevant prior studies available. FINDINGS: Lung bases: Mild cardiomegaly. Trace pericardial effusion. Trace pleural effusions. ABDOMEN: Liver: Enlarged. Gallbladder and bile ducts: Unremarkable. Pancreas: No ductal dilation. Spleen: Unremarkable. Adrenals: Unremarkable. Kidneys and ureters: No obstructing stones. No hydronephrosis. Stomach and bowel: No bowel obstruction or bowel wall thickening. Gastric banding is seen. PELVIS: Appendix: No evidence of appendicitis. Bladder: No stones. Reproductive: Unremarkable. ABDOMEN and PELVIS: Intraperitoneal space: Mild ascites. Bones/joints: No acute fractures. Disc height loss at L5-S1. Grade 1 anterolisthesis at L4-5. Soft tissues: Unremarkable. Vasculature: No abdominal aortic aneurysm. Lymph nodes: No enlarged lymph nodes. IMPRESSION: Evidence of increased volume status as demonstrated by mild cardiomegaly, trace pericardial effusion, trace pleural effusions, and trace ascites. Hepatomegaly.
[2018-06-03] MEDS ORDERED: NALOXONE 0.4 MG/ML 1 ML VIAL IV PRN (02:04)
[2018-06-03] MEDS ORDERED: SODIUM POLYSTYRENE SULFONATE 15 GM/60 ML BOTTLE PO STA (02:07)
[2018-06-03] MEDS ORDERED: HYDROmorphone 0.5 MG/0.5 ML SYRINGE IVP PRN (02:21)
[2018-06-03] MEDS ORDERED: MORPHINE SULFATE 4 MG/ML SYRINGE IV PRN (02:21)
[2018-06-03 03:34] VITALS: BMI 27.5
[2018-06-03] MEDS: SODIUM CHLORIDE 0.9% 1,000 ML IV SCH ×4 (06:19→18:14)
--- NOTE | 2018-06-03 07:07 | P.HPIM ---
History of Present Illness H&P Date: 06/03/18 The patient is a 57 yo F with a PMH of gastric lap-band bariatric surgery (2009) and a recent admission on 05/26/18 for headache now presented to the ED for abdominal pain. The patient reports that her pain started 3-4 days ago and gradually worsened, described as a band-like across the abdomen, cramping in nature, occuring intermittently, at maximal intensity an 8/10, which had improved to a 2/10 by the time of the interview. The patient was seen by Dr Hill as an outpatient 1 day prior to presentation and she reports that he drained some fluid from the lap-band port which initially provided significant relief. The symptoms gradually returned however and she came to the ED. Endorsed having some episodes of diarrhea w/ the onset of pain but denied associated fever, chills, nausea, or vomiting. She further denied any chest pain, SOB, palpitations, changes in her diet, or taking any new medications. The patient underwent an extensive evaluation in the ED w/ BUN 56 (increased from 13 on 05/26/18) and Cr 9.76 (from 0.82) along with K 6.4, and WBC 11.3, and Lipase 917. UA revealed Trace blood, trace LE, 9 WBCs, with rare mucous and bacteria cells. CT abd/pelvis w/o contrast revealed mild cardiomegaly w/ no kidney, bladder, or ureteral abnormal findings noted. The patient was subsequ ently admitted to the medicine service for acute renal failure. Review of Systems Pertinent positives and negatives as discussed in HPI, a complete review of systems was performed and all other systems are negative. Past Medical History Additional Past Medical History / Comment(s): Blood clot in Left eye (origin unknown)...blood work/dx tests such as carotid u/s performed to determine etiology but remains unknown, History of Any Multi-Drug Resistant Organisms: None Reported Past Surgical History: Bariatric Surgery, Orthopedic Surgery, Tonsillectomy Additional Past Surgical History / Comment(s): Right knee meniscus repair (Feb 2016), Bariatric Lap band May 2009, bilateral cataract surgery (November 2013), Tonsillectomy 1959's, lin carpal tunnel Past Anesthesia/Blood Transfusion Reactions: No Reported Reaction Additional Past Anesthesia/Blood Transfusion Reaction / Comment(s): No hx of blood transfusion Past Psychological History: No Psychological Hx Reported Smoking Status: Never smoker Past Alcohol Use History: None Reported Past Drug Use History: None Reported - Past Family History Father Family Medical History: Unable to Obtain Additional Family Medical History / Comment(s): does not know who her biologic father is Mother Additional Family Medical History / Comment(s): no hx of cancer or heart disease. Reports no family hx of cancer or heart disease Medications and Allergies Home Medications Medication Instructions Recorded Confirmed Type Aspirin [Adult Low Dose Aspirin EC] 81 mg PO DAILY 03/08/16 05/27/18 History Fexofenadine/Pseudoephedrine 1 each PO DAILY 7 Days #7 05/27/18 Rx [Sandee-D 24 Hour Tablet] tab.er.24h Fluticasone Nasal [place] [Flonase 1 spray EA NOSTRIL BID 10 Days #1 05/27/18 Rx Nasal [place]] bottle Gabapentin [Neurontin] 300 mg PO HS #30 capsule 05/27/18 Rx Ibuprofen 600 mg PO TID PRN #24 tablet 05/27/18 Rx Sodium Chloride [Saline Nasal 1 spray EA NOSTRIL QID PRN 7 Days 05/27/18 Rx [place]] #30 ml Allergies Allergy/AdvReac Type Severity Reaction Status Date / Time No Known Allergies Allergy Verified 06/02/18 23:39 Physical Exam Vitals: Vital Signs Temp Pulse Resp BP Pulse Ox 06/03/18 04:00 20 06/03/18 01:55 100 20 144/87 93 L 06/02/18 23:35 98.2 F 114 H 18 145/86 98 Intake and Output 06/02/18 06/02/18 06/03/18 14:59 22:59 06:59 Intake Total 2400 Balance 2400 Intake: Amount of Fluid Infused ( 2400 ml) Other: Voiding Method Toilet # Bowel Movements 0 Weight 77.428 kg General: non toxic, no distress, appears at stated age, overweight Derm: no unusual rashes/lesions no unusual ecchymoses, warm, dry Head: atraumatic, normocephalic, symmetric Eyes: EOMI, no lid lag, anicteric sclera, pupils equal round reactive to light ENT: Nose and ears atraumatic, no thrush, no pharyngeal erythema Neck: No thyromegaly, no cervical lymphadenopathy, trachea midline, supple Mouth: no lip lesion, mucus membranes moist Cardiovascular: S1S2 reg, no murmur, positive posterior tibial pulse bilateral, no edema, capillary refill less than 2 seconds Lungs: CTA bilateral, no rhonchi, no rales , no accessory muscle use Abdominal: soft, nontender to palpation, LUQ lap-band port palpable, no guarding, no appreciable organomegaly, normal bowel sounds Ext: no gross muscle atrophy, muscle strength 5 out of 5 in all 4 extremities grossly, no contractures, Neuro: CN II-XI grossly intact, light touch intact all 4 extremities, finger to nose within normal limits, Psych: Alert, oriented, appropriate affect Results CBC & Chem 7: 06/02/18 23:49 06/02/18 23:49 Labs: Abnormal Lab Results - Last 24 Hours (Table) 06/02/18 06/02/18 06/02/18 Range/Units 23:49 23:49 23:49 WBC 11.3 H (3.8-10.6) k/uL Neutrophils # 8.0 H (1.3-7.7) k/uL Sodium 136 L (137-145) mmol/L Potassium 6.4 H* (3.5-5.1) mmol/L BUN 56 H (7-17) mg/dL Creatinine 9.75 H* (0.52-1.04) mg/dL Plasma Lactic Acid Ric 0.6 L (0.7-2.0) mmol/L AST 38 H (14-36) U/L Alkaline Phosphatase 171 H (38-126) U/L Amylase 138 H (30-110) U/L Lipase 917 H (23-300) U/L Urine Protein (Negative) Urine Blood (Negative) Ur Leukocyte Esterase (Negative) Urine WBC (0-5) /hpf Urine Bacteria (None) /hpf Urine Mucus (None) /hpf 06/03/18 Range/Units 00:02 WBC (3.8-10.6) k/uL Neutrophils # (1.3-7.7) k/uL Sodium (137-145) mmol/L Potassium (3.5-5.1) mmol/L BUN (7-17) mg/dL Creatinine (0.52-1.04) mg/dL Plasma Lactic Acid Ric (0.7-2.0) mmol/L AST (14-36) U/L Alkaline Phosphatase (38-126) U/L Amylase (30-110) U/L Lipase (23-300) U/L Urine Protein 1+ H (Negative) Urine Blood Trace H (Negative) Ur Leukocyte Esterase Trace H (Negative) Urine WBC 9 H (0-5) /hpf Urine Bacteria Rare H (None) /hpf Urine Mucus Rare H (None) /hpf Thrombosis Risk Factor Assmnt - Choose All That Apply Any of the Below Risk Factors Present?: Yes Each Factor Represents 1 point: Age 41-60 years, Obesity (BMI >25) Other Risk Factors: No Other congenital or acquired thrombophilia - If yes, enter type in comment: No Thrombosis Risk Factor Assessment Total Risk Factor Score: 2 Thrombosis Risk Factor Assessment Level: Low Risk Assessment and Plan Plan: Acute renal failure, possibly due to exposure to IV contrast (Isovue) on prior admission -Monitor BMP -Send urine studies (light chains, total protein, creatinine, electrolytes, eosinophils, straining) -Check CK levels -Consult Nephrology and Gen Surgery Hyperkalemia -S/p cocktail, will monitor BMP Leukocytosis -No signs of infection at this time -Will monitor -Likely reactive Hx of Lap-band procedure w/ abdominal pain -Gen-Surgery consulted -NPO for now Perimenopausal -Holding Gabapentin until CK results available -- may cause rhabdomyolysis DVT prophylaxis -Heparin The patient is admitted with an anticipated greater than 2 midnight stay for evaluation of acute renal failure. CODE STATUS:Full Code Discussed with: Patient, Anticipated discharge date: 06/06/[address]: Home A total of 35 minutes was spent on the care of this complex patient more than 50% of the time was spent in counseling and care coordination.
[2018-06-03 08:01] LABS: Specific Gravity,Urine 1.007 (1.001-1.035)
[2018-06-03 08:25] LABS: Potassium 6.3 mmol/L (3.5-5.1)
[2018-06-03] MEDS ORDERED: DEXTROSE 50% SYRINGE 50 ML IVP ONE (08:36)
[2018-06-03] MEDS ORDERED: SODIUM POLYSTYRENE SULFONATE 15 GM/60 ML BOTTLE PO ONE (08:36)
--- NOTE | 2018-06-03 09:43 | P.NPCON ---
History of Present Illness - Reason for Consult Consult date: 06/03/18 acute renal failure - Chief Complaint Severe acute kidney injury - History of Present Illness This is a 57-year-old female seen in consultation because of severe acute kidney injury and hyperkalemia. She had a lap band's bariatric procedure in 2009. Approximately a month ago she started to have headaches. She is taking Tylenol. She denied taking any nonsteroidals. About a week ago she started having abdominal pain. She saw her surgeon and had the saline from the lap band drained with some partial relief but not complete. Pain was also was felt in the back radiating to the front. No nausea vomiting no diarrhea no fever chills no dysuria frequency kidney stones no hematuria. Denies any history of hemoptysis epistaxis cough. Because of the headache she was taking some gabapentin was very occasional though. She might have taken 1 ibuprofen. No family history of kidney disease Workup in the emergency room showed a a creatinine off 9.75, sodium 136 potassium 6.4 chloride 101 bicarb 22. Calcium was 9.6 phosphorus 6.1 and uric acid not available. Urinalysis showed 1+ protein. A computed tomography scan of the abdomen and pelvis was normal computed tomography scan of the abdomen with mild cardiomegaly. She has been given IV fluids. Minimal urine output so far. Hyperkalemia has been treated and repeat potassium was 6.3. Past history is rather unremarkable. She lost about 50-60 pounds weight since the lap band. No history of kidney stones Past Medical History Additional Past Medical History / Comment(s): Blood clot in Left eye (origin unknown)...blood work/dx tests such as carotid u/s performed to determine etiology but remains unknown, History of Any Multi-Drug Resistant Organisms: None Reported Past Surgical History: Bariatric Surgery, Orthopedic Surgery, Tonsillectomy Additional Past Surgical History / Comment(s): Right knee meniscus repair (Feb 2016), Bariatric Lap band May 2009, bilateral cataract surgery (November 2013), Tonsillectomy , lin carpal tunnel Past Anesthesia/Blood Transfusion Reactions: No Reported Reaction Additional Past Anesthesia/Blood Transfusion Reaction / Comment(s): No hx of blood transfusion Past Psychological History: No Psychological Hx Reported Smoking Status: Never smoker Past Alcohol Use History: None Reported Past Drug Use History: None Reported - Past Family History Father Family Medical History: Unable to Obtain Additional Family Medical History / Comment(s): does not know who her biologic father is Mother Additional Family Medical History / Comment(s): no hx of cancer or heart disease. Reports no family hx of cancer or heart disease Medications and Allergies Home Medications Medication Instructions Recorded Confirmed Type Aspirin [Adult Low Dose Aspirin EC] 81 mg PO DAILY 03/08/16 06/03/18 History Allergies Allergy/AdvReac Type Severity Reaction Status Date / Time No Known Allergies Allergy Verified 06/03/18 08:00 Physical Exam Vitals: Vital Signs Temp Pulse Resp BP Pulse Ox 06/03/18 04:00 20 06/03/18 01:55 100 20 144/87 93 L 06/02/18 23:35 98.2 F 114 H 18 145/86 98 Intake and Output 06/02/18 06/03/18 06/03/18 22:59 06:59 14:59 Intake Total 2400 Balance 2400 Intake: Amount of Fluid Infused ( 2400 ml) Other: Voiding Method Toilet # Bowel Movements 0 Weight 77.428 kg On examination she is awake alert oriented comfortable HEENT exam no JVP lymphadenopathy thyromegaly neck is supple no facial asymmetry Lungs are clear to auscultation percussion good air entry bilaterally Heart sounds are unremarkable for any murmur rub gallop Abdomen soft nontender no organomegaly ascites masses scaphoid Extremity exam was no edema Skin shows no rashes Neurologically awake alert oriented no asterixis Results - Lab Results Most recent lab results Calcium 9.6 mg/dL (8.4-10.2) 06/02/18 23:49 Phosphorus 6.1 mg/dL (2.5-4.5) H 06/02/18 23:49 06/02/18 23:49 06/03/18 07:08 Assessment and Plan Assessment: Impression 1. Severe acute kidney injury likely secondary to prerenal from possible pancreatitis and intravascular volume depletion. Urinalysis done by me is bland with no renal tubular cells casts RBCs or WBCs. Rule out rhabdomyolysis. Rule out vasculitis although very unlikely. Patient did just maybe 1 ibuprofen. 2. Hyperkalemia secondary to acute kidney injury. 3. Abdominal pain, Possible pancreatitis with fairly high lipase and mildly high amylase but computed tomography scan is normal. No history of alcoholism 4. History of lap band surgery in 2009 with recent decompression on the LAP- BAND a week ago. 5. Slightly high phosphorus level secondary acute kidney injury. Recommendation. 1. Continue IV fluids at 75 mL an hour. 2. Checks total CK. 3. Check ANCA, CHASE. Further serology to be done based on the results of these. 4. Will treat her hyperkalemia with combination of saline and Lasix 80 every 8. Monitor potassium in about 4 hours. Been given D50 insulin and Kayexalate just now. 5. No indication for dialysis at this time but this will be reassessed on a daily basis. 6. Expect renal recovery as over the guadarrama the picture is one of severe prerenal Thank you for this consultation and we'll continue to follow closely
[2018-06-03] MEDS ORDERED: FUROSEMIDE 10 MG/ML 10 ML VIAL IV SCH (09:45)
[2018-06-03 13:19] LABS: Glucose,Whole Blood 74 mg/dL (75-99)
[2018-06-03 14:27] LABS: Calcium 8.8 mg/dL (8.4-10.2)
[2018-06-03 14:33] LABS: Potassium 6.1 mmol/L (3.5-5.1)
--- NOTE | 2018-06-03 14:59 | P.GSCN ---
History of Present Illness Consult date: 06/03/18 Reason for Consult: Pancreatitis Requesting physician: Candy Trammell History of present illness: CHIEF COMPLAINT: Abdominal pain HISTORY OF PRESENT ILLNESS: The patient is a 57-year-old female who presents acutely with mid epigastric abdominal pain with radiation to the bilateral upper abdomen and back including acute onset renal failure of unclear etiology. She reports seeing her surgeon within the last week for abdominal pain and evaluation of her lap band. She reports all the fluid was removed for her LAP- BAND and she was pending additional studies including ultrasound of her gallbladder. She reports the pain of sharp nature became moderate to severe which prompted her to come to the emergency room. She reports she was seen in the ER 1-2 weeks ago where her blood work was normal including the kidney function. Now she presents with acute onset when of renal failure including hyperkalemia with potassium levels over 6 and creatinine over 9. She only takes aspirin. She denies drinking any new or tasting any new foods. She denies taking any supplements or multivitamins. She is surrounded by her family who also adds additional history. reports that her pain started after eating a [employer] sandwich with avocado followed by abdominal pain 2-3 hours following. She denies any previous episodes of pain like this or of kidney problems. General surgery is consulted for incidental finding of pancreatitis with lipase levels over 900. PAST MEDICAL HISTORY: See list. PAST SURGICAL HISTORY: See list. MEDICATIONS: See list. ALLERGIES: See list. SOCIAL HISTORY: No illicit drug use FAMILY HISTORY: No reports of Crohn's disease or inflammatory bowel disease REVIEW OF ORGAN SYSTEMS: CONSTITUTIONAL: No fevers or chills. History of lap band surgery with intentional weight loss over 40+ pounds EYES: Denies any trouble with vision. No glasses. HEENT: No difficulties with hearing. No nosebleeds. No difficulty swallowing. RESPIRATORY: Denies pneumonia. Denies any troubles with breathing or dyspnea on exertion. CARDIOVASCULAR: Denies any chest pain, palpitations, or recent heart attacks. GASTROINTESTINAL: Denies change in bowel habits and gas bloat. Reports eating a low-fat diet for weight loss. GENITOURINARY: Denies any blood in urine or increased urinary frequency. NEUROLOGICAL: Denies any numbness or tingling along the distal extremities. No seizure disorders or headaches. MUSCULOSKELETAL: Has back pain, stiffness or joint arthritis. SKIN: No current skin cancer. No rash. PSYCHIATRIC: Denies current depression or suicidal thoughts. ENDOCRINE: Denies current thyroid disorders. Denies any blood sugar glucose intolerance. HEME/LYMPHATIC: Denies any lumps and bumps around the neck. No recent deep venous thrombosis. ALLERGY/IMMUNOLOGY: No immunoglobulin therapy. No immune deficiencies. BREAST: Denies current breast lumps, pain or nipple discharge. PHYSICAL EXAM: VITALS: Reviewed CONSTITUTIONAL: Well developed and in no acute distress. EYES: Conjuctivae without sclera icterus. Extraocular movements grossly intact. HEAD, EARS, NOSE, THROAT: Moist buccal mucosa. Head is atraumatic, normocephalic. Hears conversational speech. No nasal drainage. Good dentition. NECK: Supple. No JV distention. No thyroidomegaly. RESPIRATORY: Non-labored respirations and equal bilateral excursions. No gross wheezes. CARDIOVASCULAR: Regular rate and rhythm. Extremities without moderate edema. Palpable 2+ radial pulses. ABDOMEN: No hepatomegaly. Soft. Non-tender. Nondistended. LYMPH: No neck lymphadenopathy. MUSCULOSKELETAL: Gait within normal limits. Range of motion bilateral upper extremities within normal limits. Nail and fingers with good capillary refill. SKIN: Warm and well perfused with good skin turgor. NEUROLOGIC: Cranial nerves II through XII grossly intact. Sensation upper and extremities intact. No focal or lateralizing signs. PSYCH: Appropriate affect. Alert and oriented to person, place and time. Displays appropriate insight. CLINCAL LABS: Reviewed with lipase over 900 on admission. RADIOLOGY: Report reviewed without free air IMAGING: Independently reviewed and a noncontrast study demonstrating no calcifications along the pancreas or inflammatory changes. LAP-BAND within normal limits and orientation ASSESSMENT: 1. Pancreatitis with elevated lipase 2. Epigastric abdominal pain 3. Acute onset acute renal failure 4. Hyperkalemia PLAN: 1. Upon further discussion with the patient, she reports that she is pending an upper and lower endoscopy in 2 weeks however with acute onset renal failure, she is recommended to cancel these procedures as she has acute renal failure. 2. For pancreatitis, symptoms highly suspicious of underlying gallstones. Ultrasound of the gallbladder is kidney friendly will proceed. 3. Management of acute onset renal failure including hyperkalemia per nephrology. 4. No surgical intervention advised as she is very high risk for any perioperative complications with acute onset renal failure 5. Also recommend avoidance of nephrotoxic agents. 6. Low-fat and low potassium diet advised. Thank you for this kind consultation. Past Medical History Additional Past Medical History / Comment(s): Blood clot in Left eye (origin unknown)...blood work/dx tests such as carotid u/s performed to determine etiology but remains unknown, History of Any Multi-Drug Resistant Organisms: None Reported Past Surgical History: Bariatric Surgery, Orthopedic Surgery, Tonsillectomy Additional Past Surgical History / Comment(s): Right knee meniscus repair (Feb 2016), Bariatric Lap band May 2009, bilateral cataract surgery (November 2013), Tonsillectomy , lin carpal tunnel Past Anesthesia/Blood Transfusion Reactions: No Reported Reaction Additional Past Anesthesia/Blood Transfusion Reaction / Comm: No hx of blood transfusion Past Psychological History: No Psychological Hx Reported Smoking Status: Never smoker Past Alcohol Use History: None Reported Past Drug Use History: None Reported - Past Family History Father Family Medical History: Unable to Obtain Additional Family Medical History / Comment(s): does not know who her biologic father is Mother Additional Family Medical History / Comment(s): no hx of cancer or heart disease. Reports no family hx of cancer or heart disease Medications and Allergies Home Medications Medication Instructions Recorded Confirmed Type Aspirin [Adult Low Dose Aspirin EC] 81 mg PO DAILY 03/08/16 06/03/18 History Allergies Allergy/AdvReac Type Severity Reaction Status Date / Time No Known Allergies Allergy Verified 06/03/18 08:00 Surgical - Exam Vital Signs Temp Pulse Resp BP Pulse Ox 98.2 F 114 H 18 145/86 98 06/02/18 23:35 06/02/18 23:35 06/02/18 23:35 06/02/18 23:35 06/02/18 23:35 Results - Labs 06/02/18 23:49 06/03/18 13:57 Abnormal Lab Results - Last 24 Hours (Table) 06/02/18 06/02/18 06/02/18 Range/Units 23:49 23:49 23:49 WBC 11.3 H (3.8-10.6) k/uL Neutrophils # 8.0 H (1.3-7.7) k/uL Sodium 136 L (137-145) mmol/L Potassium 6.4 H* (3.5-5.1) mmol/L Carbon Dioxide (22-30) mmol/L BUN 56 H (7-17) mg/dL Creatinine 9.75 H* (0.52-1.04) mg/dL Glucose (74-99) mg/dL POC Glucose (mg/dL) (75-99) mg/dL Plasma Lactic Acid Ric 0.6 L (0.7-2.0) mmol/L Phosphorus (2.5-4.5) mg/dL AST 38 H (14-36) U/L Alkaline Phosphatase 171 H (38-126) U/L Amylase 138 H (30-110) U/L Lipase 917 H (23-300) U/L Urine Protein (Negative) Urine Blood (Negative) Ur Leukocyte Esterase (Negative) Urine WBC (0-5) /hpf Urine Bacteria (None) /hpf Urine Mucus (None) /hpf U Random Total Protein (<12) mg/dL 06/02/18 06/03/18 06/03/18 Range/Units 23:49 00:02 06:45 WBC (3.8-10.6) k/uL Neutrophils # (1.3-7.7) k/uL Sodium (137-145) mmol/L Potassium (3.5-5.1) mmol/L Carbon Dioxide (22-30) mmol/L BUN (7-17) mg/dL Creatinine (0.52-1.04) mg/dL Glucose (74-99) mg/dL POC Glucose (mg/dL) (75-99) mg/dL Plasma Lactic Acid Ric (0.7-2.0) mmol/L Phosphorus 6.1 H (2.5-4.5) mg/dL AST (14-36) U/L Alkaline Phosphatase (38-126) U/L Amylase (30-110) U/L Lipase (23-300) U/L Urine Protein 1+ H (Negative) Urine Blood Trace H (Negative) Ur Leukocyte Esterase Trace H (Negative) Urine WBC 9 H (0-5) /hpf Urine Bacteria Rare H (None) /hpf Urine Mucus Rare H (None) /hpf U Random Total Protein 59 H (<12) mg/dL 06/03/18 06/03/18 06/03/18 Range/Units 07:08 12:52 13:57 WBC (3.8-10.6) k/uL Neutrophils # (1.3-7.7) k/uL Sodium (137-145) mmol/L Potassium 6.3 H* 6.1 H* (3.5-5.1) mmol/L Carbon Dioxide 21 L (22-30) mmol/L BUN 55 H (7-17) mg/dL Creatinine 9.11 H* (0.52-1.04) mg/dL Glucose 107 H (74-99) mg/dL POC Glucose (mg/dL) 74 L (75-99) mg/dL Plasma Lactic Acid Ric (0.7-2.0) mmol/L Phosphorus (2.5-4.5) mg/dL AST (14-36) U/L Alkaline Phosphatase (38-126) U/L Amylase (30-110) U/L Lipase 477 H (23-300) U/L Urine Protein (Negative) Urine Blood (Negative) Ur Leukocyte Esterase (Negative) Urine WBC (0-5) /hpf Urine Bacteria (None) /hpf Urine Mucus (None) /hpf U Random Total Protein (<12) mg/dL Diabetes panel 06/02/18 06/03/18 06/03/18 Range/Units 23:49 07:08 13:57 Sodium 136 L 137 (137-145) mmol/L Potassium 6.4 H* 6.3 H* 6.1 H* (3.5-5.1) mmol/L Chloride 101 107 (98-107) mmol/L Carbon Dioxide 22 21 L (22-30) mmol/L BUN 56 H 55 H (7-17) mg/dL Creatinine 9.75 H* 9.11 H* (0.52-1.04) mg/dL Glucose 91 107 H (74-99) mg/dL Calcium 9.6 8.8 (8.4-10.2) mg/dL AST 38 H (14-36) U/L ALT 46 (9-52) U/L Alkaline Phosphatase 171 H (38-126) U/L Total Protein 6.6 (6.3-8.2) g/dL Albumin 3.9 (3.5-5.0) g/dL Calcium panel 06/02/18 06/02/18 06/03/18 Range/Units 23:49 23:49 13:57 Calcium 9.6 8.8 (8.4-10.2) mg/dL Phosphorus 6.1 H (2.5-4.5) mg/dL Albumin 3.9 (3.5-5.0) g/dL Pituitary panel 06/02/18 06/03/18 06/03/18 Range/Units 23:49 07:08 13:57 Sodium 136 L 137 (137-145) mmol/L Potassium 6.4 H* 6.3 H* 6.1 H* (3.5-5.1) mmol/L Chloride 101 107 (98-107) mmol/L Carbon Dioxide 22 21 L (22-30) mmol/L BUN 56 H 55 H (7-17) mg/dL Creatinine 9.75 H* 9.11 H* (0.52-1.04) mg/dL Glucose 91 107 H (74-99) mg/dL Calcium 9.6 8.8 (8.4-10.2) mg/dL Adrenal panel 06/02/18 06/03/18 06/03/18 Range/Units 23:49 07:08 13:57 Sodium 136 L 137 (137-145) mmol/L Potassium 6.4 H* 6.3 H* 6.1 H* (3.5-5.1) mmol/L Chloride 101 107 (98-107) mmol/L Carbon Dioxide 22 21 L (22-30) mmol/L BUN 56 H 55 H (7-17) mg/dL Creatinine 9.75 H* 9.11 H* (0.52-1.04) mg/dL Glucose 91 107 H (74-99) mg/dL Calcium 9.6 8.8 (8.4-10.2) mg/dL Total Bilirubin 0.5 (0.2-1.3) mg/dL AST 38 H (14-36) U/L ALT 46 (9-52) U/L Alkaline Phosphatase 171 H (38-126) U/L Total Protein 6.6 (6.3-8.2) g/dL Albumin 3.9 (3.5-5.0) g/dL - Imaging CT scan - abdomen: report reviewed, image reviewed CT scan - pelvis: report reviewed, image reviewed Assessment and Plan (1) Acute renal failure (ARF) Current Visit: Yes Status: Acute Code(s): N17.9 - ACUTE KIDNEY FAILURE, UNSPECIFIED SNOMED Code(s): 18967475 (2) Elevated lipase Current Visit: Yes Status: Acute Code(s): R74.8 - ABNORMAL LEVELS OF OTHER SERUM ENZYMES SNOMED Code(s): 822094380 (3) Acute pancreatitis Current Visit: Yes Status: Acute Code(s): K85.90 - ACUTE PANCREATITIS WITHOUT NECROSIS OR INFECTION, UNSP SNOMED Code(s): 525250648 (4) Hyperkalemia Current Visit: Yes Status: Acute Code(s): E87.5 - HYPERKALEMIA SNOMED Code(s): 37455269 (5) Epigastric abdominal pain Current Visit: Yes Status: Acute Code(s): R10.13 - EPIGASTRIC PAIN SNOMED Code(s): 94457764 (6) History of adjustable gastric banding Current Visit: Yes Status: Acute Code(s): Z98.84 - BARIATRIC SURGERY STATUS SNOMED Code(s): 921192047 (7) Leukocytosis Current Visit: Yes Status: Acute Code(s): D72.829 - ELEVATED WHITE BLOOD CELL COUNT, UNSPECIFIED SNOMED Code(s): 944955502
[2018-06-03] MEDS ORDERED: FUROSEMIDE 10 MG/ML 10 ML VIAL IV STA (15:37)
[2018-06-03] MEDS: ACETAMINOPHEN TAB 325 MG TAB PO PRN (17:35)
[2018-06-03] MEDS: FUROSEMIDE 10 MG/ML 10 ML VIAL IV SCH (21:12)
[2018-06-04] MEDS: SODIUM CHLORIDE 0.9% 1,000 ML IV SCH ×3 (00:19→18:29)
[2018-06-04] MEDS: MORPHINE SULFATE 4 MG/ML SYRINGE IV PRN (03:01)
[2018-06-04] MEDS: ONDANSETRON 4 MG/2 ML VIAL IVP PRN (03:05)
[2018-06-04] MEDS: FUROSEMIDE 10 MG/ML 10 ML VIAL IV SCH ×3 (05:15→21:00)
[2018-06-04] MEDS: ACETAMINOPHEN TAB 325 MG TAB PO PRN (07:16)
[2018-06-04 07:35] LABS: Basophils # (A) 0.1 k/uL (0-0.2); Basophils % (A) 1 %; Eosinophils # (A) 0.5 k/uL (0-0.7); Eosinophils % (A) 4 %; HCT 36.2 % (34.0-46.0); HGB 11.5 gm/dL (11.4-16.0); Lymphocytes # (A) 1.4 k/uL (1.0-4.8); Lymphocytes % (A) 13 %; MCH 28.1 pg (25.0-35.0); MCHC 31.7 g/dL (31.0-37.0); MCV 88.8 fL (80.0-100.0); Mean Platelet Volume 6.5; Monocytes # (A) 0.9 k/uL (0-1.0); Monocytes % (A) 9 %; Neutrophils # (A) 7.3 k/uL (1.3-7.7); Neutrophils % (A) 70 %; Platelet Count 382 k/uL (150-450); RBC 4.07 m/uL (3.80-5.40); RDW 14.8 % (11.5-15.5); WBC 10.5 k/uL (3.8-10.6)
[2018-06-04 07:47] LABS: Albumin 3.2 g/dL (3.5-5.0); Calcium 8.9 mg/dL (8.4-10.2); Magnesium 1.9 mg/dL (1.6-2.3); Phosphorus 7.5 mg/dL (2.5-4.5); Potassium 5.9 mmol/L (3.5-5.1); Total Bilirubin 0.5 mg/dL (0.2-1.3); Total Protein 5.6 g/dL (6.3-8.2)
--- NOTE | 2018-06-04 08:11 | US ---
EXAMINATION TYPE: US gallbladder DATE OF EXAM: 06/04/2018 COMPARISON: CT 2019 CLINICAL HISTORY: Right upper quadrant pain. Abdomen pain x 1 week EXAM MEASUREMENTS: Liver Length: 18.7 cm Gallbladder Wall: 0.2 cm CBD: 0.4 cm Right Kidney: 12.2 x 5.8 x 6.4 cm Pancreas: visualized portions wnl, tail obscured by overlying midline bowel gas Liver: enlarged Gallbladder: mildly hydropic, wall measures wnl Evidence for sonographic Garcia's sign: no CBD: wnl Right Kidney: wnl Right pleural effusion noted IMPRESSION: 1. Mild gallbladder hydrops without cholelithiasis or wall thickening.
--- NOTE | 2018-06-04 08:45 | P.PN ---
Subjective Progress Note Date: 06/04/18 Principal diagnosis: This is a 57-year-old female seen in consultation because of severe acute kidney injury and hyperkalemia. This is deemed to be from prerenal based on a comple tely benign urine and a normal computed tomography scan of the kidneys. The prerenal element could be from pancreatitis with high amylase and lipase but the computed tomography scan does not show any pancreatitis. She was started on IV normal saline and because of persistent hyperkalemia IV Lasix 80 daily 8 was added. This morning she is feeling slightly better wants to eat she did have nausea last night. No chest pain shortness of breath. Occasionally feels dizzy. History of present illness ; She had a lap band's bariatric procedure in 2009. Approximately a month ago she started to have headaches. She was taking Tylenol. She denied taking any nonsteroidals. About a week ago she started having abdominal pain. She saw her surgeon and had the saline from the lap band drained with some partial relief but not complete. Pain was also was felt in the back radiating to the front. N o nausea vomiting no diarrhea no fever chills no dysuria frequency kidney stones no hematuria. Denies any history of hemoptysis epistaxis cough. Because of the headache she was taking some gabapentin was very occasional though. She might have taken 1 ibuprofen. No family history of kidney disease Workup in the emergency room showed a a creatinine off 9.75, sodium 136 potassium 6.4 chloride 101 bicarb 22. Calcium was 9.6 phosphorus 6.1 and uric acid not available. Urinalysis showed 1+ protein. A computed tomography scan of the abdomen and pelvis was normal computed tomography scan of the abdomen with mild cardiomegaly. She has been given IV fluids. Minimal urine output so far. Hyperkalemia has been treated and repeat potassium was 6.3. Past history is rather unremarkable. She lost about 50-60 pounds weight since the lap band. No history of kidney stones There is some history of eye problem with a clot in the eye details are not clear Objective - Vital Signs Vital signs: Vital Signs Temp 98.6 F 06/04/18 02:21 Pulse 98 06/04/18 02:21 Resp 20 06/04/18 02:21 BP 153/76 06/04/18 02:21 Pulse Ox 93 L 06/04/18 02:21 Intake & Output 06/03/18 06/04/18 06/04/18 18:59 06:59 18:59 Intake Total 600 980 Output Total 1100 Balance 600 -120 Intake: Intake, IV Titration 600 Amount Sodium Chloride 0.9% 1, 600 000 ml @ 75 mls/hr IV . [id number] [facility] Rx#:[id number] Oral 980 Output: Urine 1100 Other: Voiding Method Toilet Toilet # Voids 6 2 # Bowel Movements 0 On examination she is awake alert oriented comfortable HEENT exam no JVP neck is supple no facial asymmetry Lungs are clear to auscultation good air entry bilaterally Heart sounds are unremarkable for any murmur rub gallop Abdomen soft nontender nondistended Extremity exam reveals no edema Neurologically awake alert oriented No asterixis. - Labs CBC & Chem 7: 06/04/18 06:42 06/04/18 06:42 Labs: Abnormal Lab Results - Last 24 Hours (Table) 06/03/18 06/03/18 06/03/18 Range/Units 06:45 07:08 12:52 Potassium 6.3 H* (3.5-5.1) mmol/L Carbon Dioxide (22-30) mmol/L BUN (7-17) mg/dL Creatinine (0.52-1.04) mg/dL Glucose (74-99) mg/dL POC Glucose (mg/dL) 74 L (75-99) mg/dL Phosphorus (2.5-4.5) mg/dL Alkaline Phosphatase (38-126) U/L Total Protein (6.3-8.2) g/dL Albumin (3.5-5.0) g/dL Lipase (23-300) U/L U Random Total Protein 59 H (<12) mg/dL 06/03/18 06/03/18 06/04/18 Range/Units 13:57 22:26 06:42 Potassium 6.1 H* 5.6 H 5.9 H (3.5-5.1) mmol/L Carbon Dioxide 21 L (22-30) mmol/L BUN 55 H 56 H (7-17) mg/dL Creatinine 9.11 H* 9.72 H* (0.52-1.04) mg/dL Glucose 107 H (74-99) mg/dL POC Glucose (mg/dL) (75-99) mg/dL Phosphorus 7.5 H (2.5-4.5) mg/dL Alkaline Phosphatase 137 H (38-126) U/L Total Protein 5.6 L (6.3-8.2) g/dL Albumin 3.2 L (3.5-5.0) g/dL Lipase 477 H 348 H (23-300) U/L U Random Total Protein (<12) mg/dL Assessment and Plan Assessment: Impression 1. Severe acute kidney injury likely secondary to prerenal from possible pancreatitis and intravascular volume depletion. Urinalysis done by me is bland with no renal tubular cells casts RBCs or WBCs. Ruled out rhabdomyolysis. Rule out vasculitis although very unlikely. Urine output is 1500 mL 2. Hyperkalemia secondary to acute kidney injury. Persistent high potassium this morning is 5.9 in spite of IV normal saline 75 mL an hour and Lasix IV every 880 mg with urine output of 1500 mL 3. Abdominal pain, Possible pancreatitis with fairly high lipase and mildly high amylase but computed tomography scan is normal. No history of alcoholism. Lipase is down from 917 to be 348 4. History of lap band surgery in 2009 with recent decompression on the LAP- BAND a week ago. 5. Slightly high phosphorus level secondary acute kidney injury. Recommendation. 1. Continue IV fluids, increase it 225 mL an hour from 75 mL an hour, to induce potassium loss in the urine. 2. Pending ANCA, CHASE. Further serology to be done based on the results of thes e. 4. Patient was reassured that most likely she'll recover and may not need dialysis. But if there is no recovery she will need a kidney biopsy and dialysis may have to be started tomorrow based on labs and her symptoms 5. No indication for dialysis at this time but this will be reassessed on a daily basis. 6. Consult Dr. Enriquez vascular surgery for possible permacath tomorrow if necessary Thank you for this consultation and we'll continue to follow closely
--- NOTE | 2018-06-04 11:31 | P.PN ---
Subjective Progress Note Date: 06/04/18 Patient seen and examined at bedside,, mentions some left-sided lower abdominal and suprapubic pain. Currently on clear liquids with like to advance diet had right upper quadrant ultrasound done. Patient had approximately 1.5 L. Denies any nausea vomiting. Potassium 5.9 today creatinine up to 9.72, otherwise no acute events overnight Objective - Vital Signs Vital signs: Vital Signs Temp 98.6 F 06/04/18 02:21 Pulse 98 06/04/18 02:21 Resp 20 06/04/18 02:21 BP 153/76 06/04/18 02:21 Pulse Ox 93 L 06/04/18 02:21 Intake & Output 06/03/18 06/04/18 06/04/18 18:59 06:59 18:59 Intake Total 600 980 Output Total 1100 Balance 600 -120 Intake: Intake, IV Titration 600 Amount Sodium Chloride 0.9% 1, 600 000 ml @ 75 mls/hr IV . [id number] [facility] Rx#:[id number] Oral 980 Output: Urine 1100 Other: Voiding Method Toilet Toilet # Voids 6 2 # Bowel Movements 0 - Exam Constitutional: No acute distress, conversant, pleasant Eyes: Anicteric sclerae, moist conjunctiva, no lid-lag, PERRLA ENMT: NC/AT,Oropharynx clear, no erythema, exudates Neck:Supple, FROM, no masses, or JVD, No carotid bruits; No thyromegaly Lungs: Clear to auscultation, Clear to percussion, Normal respiratory effort, no accessory muscle use Cardiovascular: Heart regular in rate and rhythm, No murmurs, gallops, or rubs no peripheral edema Abdominal: Soft Nontender, nom distended, no guarding, no rebound or rigidity, Normoactive bowel sounds No hepatomegaly, No splenomegaly, No palpable mass No abdominal wall hernia noted Skin: Normal temperature, tone, texture, turgor, No induration No subcutaneous nodules, No rash, lesions, No ulcers Extremities:No digital cyanosis No clubbing, Pedal pulses intact and s ymmetrical Radial pulses intact and symmetrical Normal gait and station, No calf tenderness Psychiatric: Alert and oriented to person, place and time, Appropriate affect Intact judgement Neuro: Muscles Strength 5/5 in all 4 extremities, Sensation to light touch grossly present throughout, Cranial nerves II-XII grossly intact. No focal sensory deficits - Labs CBC & Chem 7: 06/04/18 06:42 06/05/18 06:38 Labs: Abnormal Lab Results - Last 24 Hours (Table) 06/03/18 06/03/18 06/03/18 Range/Units 12:52 13:57 22:26 Potassium 6.1 H* 5.6 H (3.5-5.1) mmol/L Carbon Dioxide 21 L (22-30) mmol/L BUN 55 H (7-17) mg/dL Creatinine 9.11 H* (0.52-1.04) mg/dL Glucose 107 H (74-99) mg/dL POC Glucose (mg/dL) 74 L (75-99) mg/dL Phosphorus (2.5-4.5) mg/dL Alkaline Phosphatase (38-126) U/L Total Protein (6.3-8.2) g/dL Albumin (3.5-5.0) g/dL Lipase 477 H (23-300) U/L 06/04/18 Range/Units 06:42 Potassium 5.9 H (3.5-5.1) mmol/L Carbon Dioxide (22-30) mmol/L BUN 56 H (7-17) mg/dL Creatinine 9.72 H* (0.52-1.04) mg/dL Glucose (74-99) mg/dL POC Glucose (mg/dL) (75-99) mg/dL Phosphorus 7.5 H (2.5-4.5) mg/dL Alkaline Phosphatase 137 H (38-126) U/L Total Protein 5.6 L (6.3-8.2) g/dL Albumin 3.2 L (3.5-5.0) g/dL Lipase 348 H (23-300) U/L Assessment and Plan (1) Acute kidney injury Narrative/Plan: * Creatinine up to 9.7 * Attributed to prerenal etiology volume depletion secondary to acute pancreatitis per renal * Workup pending with CHASE, ANCA * Considering temporary dialysis cath placement by Dr. Enriquez if creatinine continues to trend * Appreciate renal recommendations Current Visit: Yes Status: Acute Code(s): N17.9 - ACUTE KIDNEY FAILURE, UNSPECIFIED SNOMED Code(s): 68163239 (2) Hyperkalemia Narrative/Plan: * Potassium 5.9 status post temporizing measures with calcium gluconate, IV insulin, D50W and Kayexalate * Secondary to acute kidney injury * Continued on normal saline at 75 mL an hour with IV Lasix 80mg IV q8 Current Visit: Yes Status: Acute Code(s): E87.5 - HYPERKALEMIA SNOMED Code(s): 96056010 (3) Pancreatitis Narrative/Plan: * Etiology unknown appreciate general surgery recommendations * Right upper quadrant ultrasound showing hydrops gallbladder * Lipase trending down to 348 from 917 on presentation Current Visit: Yes Status: Acute Code(s): K85.90 - ACUTE PANCREATITIS WITHOUT NECROSIS OR INFECTION, UNSP SNOMED Code(s): 44548688 Plan: Disposition * Follow-up consultants recommendations continue to check daily electrolytes * Anticipated discharge to be determined by course
--- NOTE | 2018-06-04 13:20 | P.PN ---
Subjective Progress Note Date: 06/04/18 CHIEF COMPLAINT: Pancreatitis HISTORY OF PRESENT ILLNESS: The patient is a 57-year-old female who presented acutely with mid epigastric abdominal pain with radiation to the bilateral upper abdomen and back including acute onset renal failure of unclear etiology. She reports seeing her surgeon within the last week for abdominal pain and evaluation of her lap band. She reports all the fluid was removed for her LAP- BAND. Now she presents with acute onset pancreatitis including renal failure and hyperkalemia with potassium levels over 6 and creatinine over 9. Since admission, lipase levels decreased from 900 down to 300s. Her potassium levels have decreased to less than 6 milligrams per deciliter. Her creatinine continues to elevate. She reports new onset left upper and lower quadrant abd ominal pain that radiated to the back last night requiring pain meds. She had been on liquid diet including Jell-O and broth. Her is at bedside. She reports confusion from multiple physicians regarding her acute onset renal failure and pancreatitis when one week ago she was fine. She has completed her ultrasound of her gallbladder. At the time of my assessment, abdominal pain had improved. ROS: No nausea or vomiting. No chest pain. No headaches. She is urinating. PHYSICAL EXAM: VITALS: Reviewed CONSTITUTIONAL: Well developed and in no acute distress. EYES: Conjuctivae without sclera icterus. Extraocular movements grossly intact. HEAD, EARS, NOSE, THROAT: Moist buccal mucosa. Head is atraumatic, normocephalic. Hears conversational speech. No nasal drainage. Good dentition. NECK: Supple. No JV distention. No thyroidomegaly. RESPIRATORY: Non-labored respirations and equal bilateral excursions. No gross wheezes. CARDIOVASCULAR: Regular rate and rhythm. Extremities without moderate edema. Palpable 2+ radial pulses. ABDOMEN: Nondistended. No peritonitis. MUSCULOSKELETAL: Gait within normal limits. Range of motion bilateral upper extremities within normal limits. Nail and fingers with good capillary refill. SKIN: Warm and well perfused with good skin turgor. NEUROLOGIC: Cranial nerves II through XII grossly intact. Sensation upper and extremities intact. No focal or lateralizing signs. PSYCH: Appropriate affect. Alert and oriented to person, place and time. Displays appropriate insight. CLINCAL LABS: Reviewed with lipase of over 900 now 300s. Creatinine elevated over 9. Leukocytosis resolved. RADIOLOGY: Report reviewed without large gallstones. IMAGING: Independently reviewed of ultrasound of the gallbladder without cholecystitis. No sludge or stones identified. Pancreas was within normal limits. Liver was slightly enlarged. ASSESSMENT: 1. Pancreatitis with elevated lipase now improving 2. Epigastric abdominal pain now improving 3. Acute onset acute renal failure, worsening 4. Hyperkalemia, improving 5. Hepatomegaly 6. New left lower quadrant abdominal pain PLAN: 1. Her lipase levels are improving however clinically she is describing new abdominal pain. Recommend nothing by mouth except ice chips for 24 hours to d ecrease risk for rebound of pancreatitis 2. I described to the patient and her three common reasons for pancreatitis includes drinking/alcoholism, gallstones, hypertriglyceridemia, separately drugs. Cryptic causes for pancreatitis is best delineated by gastroenterology. Recommend gastrology consultation 3. Will send for triglyceride and cholesterol panel 4. Overall, with new onset acute renal failure, cholecystectomy contraindicated as well as colonoscopy secondary to large volume shifts. 5. We will reassess for starting diet tomorrow pending improvement of her abdominal pain and resolution of pancreatitis 6. At this time, nothing by mouth except ice chips Objective - Vital Signs Vital signs: Vital Signs Temp 98.6 F 06/04/18 02:21 Pulse 98 06/04/18 08:00 Resp 20 06/04/18 08:00 BP 153/76 06/04/18 02:21 Pulse Ox 93 L 06/04/18 02:21 Intake & Output 06/03/18 06/04/18 06/04/18 18:59 06:59 18:59 Intake Total 600 980 Output Total 1100 Balance 600 -120 Intake: Intake, IV Titration 600 Amount Sodium Chloride 0.9% 1, 600 000 ml @ 75 mls/hr IV . [id number] [facility] Rx#:[id number] Oral 980 Output: Urine 1100 Other: Voiding Method Toilet Toilet Toilet # Voids 6 2 # Bowel Movements 0 - Labs CBC & Chem 7: 06/04/18 06:42 06/04/18 06:42 Labs: Abnormal Lab Results - Last 24 Hours (Table) 06/03/18 06/03/18 06/03/18 Range/Units 12:52 13:57 22:26 Potassium 6.1 H* 5.6 H (3.5-5.1) mmol/L Carbon Dioxide 21 L (22-30) mmol/L BUN 55 H (7-17) mg/dL Creatinine 9.11 H* (0.52-1.04) mg/dL Glucose 107 H (74-99) mg/dL POC Glucose (mg/dL) 74 L (75-99) mg/dL Phosphorus (2.5-4.5) mg/dL Alkaline Phosphatase (38-126) U/L Total Protein (6.3-8.2) g/dL Albumin (3.5-5.0) g/dL Lipase 477 H (23-300) U/L Ur 24 Hour Volume (800-1800) mls Ur Creatinine 24 Hour (800.0-1800.0) mg/24hr U Tot Protein 24h, Calc (42.0-225.0) mg/24hr 06/04/18 06/04/18 06/04/18 Range/Units 06:42 10:00 10:00 Potassium 5.9 H (3.5-5.1) mmol/L Carbon Dioxide (22-30) mmol/L BUN 56 H (7-17) mg/dL Creatinine 9.72 H* (0.52-1.04) mg/dL Glucose (74-99) mg/dL POC Glucose (mg/dL) (75-99) mg/dL Phosphorus 7.5 H (2.5-4.5) mg/dL Alkaline Phosphatase 137 H (38-126) U/L Total Protein 5.6 L (6.3-8.2) g/dL Albumin 3.2 L (3.5-5.0) g/dL Lipase 348 H (23-300) U/L Ur 24 Hour Volume 3000 H 3000 H (800-1800) mls Ur Creatinine 24 Hour 726.0 L (800.0-1800.0) mg/24hr U Tot Protein 24h, Calc 1050 H (42.0-225.0) mg/24hr Assessment and Plan (1) Acute renal failure (ARF) Current Visit: Yes Status: Acute Code(s): N17.9 - ACUTE KIDNEY FAILURE, UNSPECIFIED SNOMED Code(s): 73976328 (2) Elevated lipase Current Visit: Yes Status: Acute Code(s): R74.8 - ABNORMAL LEVELS OF OTHER SERUM ENZYMES SNOMED Code(s): 115017692 (3) Acute pancreatitis Current Visit: Yes Status: Acute Code(s): K85.90 - ACUTE PANCREATITIS WITHOUT NECROSIS OR INFECTION, UNSP SNOMED Code(s): 886095744 (4) Hyperkalemia Current Visit: Yes Status: Acute Code(s): E87.5 - HYPERKALEMIA SNOMED Code(s): 71507953 (5) Epigastric abdominal pain Current Visit: Yes Status: Acute Code(s): R10.13 - EPIGASTRIC PAIN SNOMED Code(s): 08890785 (6) History of adjustable gastric banding Current Visit: Yes Status: Acute Code(s): Z98.84 - BARIATRIC SURGERY STATUS SNOMED Code(s): 269621488 (7) Leukocytosis Current Visit: Yes Status: Acute Code(s): D72.829 - ELEVATED WHITE BLOOD CELL COUNT, UNSPECIFIED SNOMED Code(s): 630154167 (8) Left lower quadrant pain Current Visit: Yes Status: Acute Code(s): R10.32 - LEFT LOWER QUADRANT PAIN SNOMED Code(s): 214689495 (9) Hepatomegaly Current Visit: Yes Status: Acute Code(s): R16.0 - HEPATOMEGALY, NOT ELSEWHERE CLASSIFIED SNOMED Code(s): 32133613
[2018-06-04 18:59] LABS: Calcium 8.9 mg/dL (8.4-10.2); Potassium 5.4 mmol/L (3.5-5.1)
[2018-06-05] MEDS: SODIUM CHLORIDE 0.9% 1,000 ML IV SCH ×3 (01:15→19:49)
[2018-06-05] MEDS: ONDANSETRON 4 MG/2 ML VIAL IVP PRN (02:43)
[2018-06-05] MEDS: MORPHINE SULFATE 4 MG/ML SYRINGE IV PRN (02:46)
[2018-06-05] MEDS: FUROSEMIDE 10 MG/ML 10 ML VIAL IV SCH (05:40)
[2018-06-05 07:32] LABS: Calcium 8.6 mg/dL (8.4-10.2); Potassium 4.8 mmol/L (3.5-5.1)
--- NOTE | 2018-06-05 10:43 | P.PN ---
Subjective Patient is seen in follow-up for acute kidney injury. Her baseline creatinine from earlier this month was near 1. This admission it's been staying above 90. Urine output is improving. She's already had about a liter of urine output since this morning. No edema. Potassium level is better. Currently nothing by mouth for acute pancreatitis. Lipase levels are trending down. No abdominal pain. Vital signs are stable. General: The patient appeared well nourished and normally developed. HEENT: Head exam is unremarkable. Neck is without jugular venous distension. LUNGS: Lungs are clear to auscultation and percussion. Breath sounds decreased. HEART: Rate and Rhythm are regular. First and second heart sounds normal. No murmurs, rubs or gallops. ABDOMEN: Abdominal exam reveals normal bowel sounds. Non-tender and non- distended. No evidence of peritonitis. EXTREMITITES: No clubbing, cyanosis, or edema. Objective - Vital Signs Vital signs: Vital Signs Temp 98.3 F 06/05/18 07:24 Pulse 95 06/05/18 07:24 Resp 16 06/05/18 07:24 BP 145/78 06/05/18 07:24 Pulse Ox 95 06/05/18 07:24 Intake & Output 06/04/18 06/05/18 06/05/18 18:59 06:59 18:59 Intake Total 1000 1990 Output Total 1050 750 Balance 1000 940 -750 Intake: Intake, IV Titration 1000 1250 Amount Sodium Chloride 0.9% 1, 1000 1250 000 ml @ 125 mls/hr IV . Q8H [facility] Rx#:[id number] Oral 740 Output: Urine 1050 750 Other: Voiding Method Toilet Toilet # Voids 2 3 - Labs CBC & Chem 7: 06/04/18 06:42 06/05/18 06:38 Labs: Abnormal Lab Results - Last 24 Hours (Table) 06/04/18 06/04/18 06/04/18 Range/Units 10:00 10:00 18:09 Potassium 5.4 H (3.5-5.1) mmol/L Chloride (98-107) mmol/L Carbon Dioxide 21 L (22-30) mmol/L BUN 58 H (7-17) mg/dL Creatinine 9.61 H* (0.52-1.04) mg/dL Glucose (74-99) mg/dL Ur 24 Hour Volume 3000 H 3000 H (800-1800) mls Ur Creatinine 24 Hour 726.0 L (800.0-1800.0) mg/24hr U Tot Protein 24h, Calc 1050 H (42.0-225.0) mg/24hr 06/05/18 Range/Units 06:38 Potassium (3.5-5.1) mmol/L Chloride 108 H (98-107) mmol/L Carbon Dioxide 17 L (22-30) mmol/L BUN 57 H (7-17) mg/dL Creatinine 9.64 H* (0.52-1.04) mg/dL Glucose 67 L (74-99) mg/dL Ur 24 Hour Volume (800-1800) mls Ur Creatinine 24 Hour (800.0-1800.0) mg/24hr U Tot Protein 24h, Calc (42.0-225.0) mg/24hr Assessment and Plan Plan: Assessment: 1. Acute kidney injury secondary to ATN secondary to intravascular volume depletion and pancreatitis. She does have 1 g of proteinuria however this can be nonspecific in the setting of acute kidney injury. No hydronephrosis noted on CAT scan. Baseline creatinine near 1. It is 9.64 today. 2. Acute pancreatitis. Lipase levels trending down. Currently nothing by mouth. Surgery following. 3. Hyperkalemia secondary to acute kidney injury and metabolic acidosis. Better. 4. Metabolic acidosis secondary to acute kidney injury and IV fluids. Plan: Discontinue IV Lasix. Decreased rate of normal saline to 80 mL an hour. Diet to be advanced per surgical recommendations. With no improvement in renal function, I will initiate renal replacement therapy today. Consult vascular surgery for dialysis catheter placement. First treatment of hemodialysis today and second treatment tomorrow. I do expect recovery of renal function over the next few days. Check serologic workup. Will consider biopsy pending results. Discussed in detail with patient and family. Also discussed with primary team.
--- NOTE | 2018-06-05 13:53 | P.PN ---
Subjective Progress Note Date: 06/05/18 Patient seen and examined at bedside, denies any pain or nausea today. . Patient had approximately 1.0 L out this morning. Denies any nausea vomiting. Potassium 4.8 today creatinine at 9.62, patient complaining of bump in the left posterior occiput, reports it's mildly tender. otherwise no acute events overnight Objective - Vital Signs Vital signs: Vital Signs Temp 98.3 F 06/05/18 07:24 Pulse 95 06/05/18 07:24 Resp 16 06/05/18 07:24 BP 145/78 06/05/18 07:24 Pulse Ox 95 06/05/18 07:24 Intake & Output 06/04/18 06/05/18 06/05/18 18:59 06:59 18:59 Intake Total 1000 1990 Output Total 1050 750 Balance 1000 940 -750 Intake: Intake, IV Titration 1000 1250 Amount Sodium Chloride 0.9% 1, 1000 1250 000 ml @ 125 mls/hr IV . Q8H [facility] Rx#:[id number] Oral 740 Output: Urine 1050 750 Other: Voiding Method Toilet Toilet # Voids 2 3 - Exam Constitutional: No acute distress, conversant, pleasant Eyes: Anicteric sclerae, moist conjunctiva, no lid-lag, PERRLA ENMT: NC/AT,Oropharynx clear, no erythema, exudates Neck:Supple, FROM, no masses, or JVD, No carotid bruits; No thyromegaly Lungs: Clear to auscultation, Clear to percussion, Normal respiratory effort, no accessory muscle use Cardiovascular: Heart regular in rate and rhythm, No murmurs, gallops, or rubs no peripheral edema Abdominal: Soft Nontender, nom distended, no guarding, no rebound or rigidity, Normoactive bowel sounds No hepatomegaly, No splenomegaly, No palpable mass No abdominal wall hernia noted Skin: Normal temperature, tone, texture, turgor, No induration No subcutaneous nodules, No rash, lesions, No ulcers Extremities:No digital cyanosis No clubbing, Pedal pulses intact and symmetrical Radial pulses intact and symmetrical Normal gait and station, No calf tenderness Psychiatric: Alert and oriented to person, place and time, Appropriate affect Intact judgement Neuro: Muscles Strength 5/5 in all 4 extremities, Sensation to light touch grossly present throughout, Cranial nerves II-XII grossly intact. No focal sensory deficits - Labs CBC & Chem 7: 06/04/18 06:42 06/05/18 06:38 Labs: Abnormal Lab Results - Last 24 Hours (Table) 06/04/18 06/05/18 Range/Units 18:09 06:38 Potassium 5.4 H (3.5-5.1) mmol/L Chloride 108 H (98-107) mmol/L Carbon Dioxide 21 L 17 L (22-30) mmol/L BUN 58 H 57 H (7-17) mg/dL Creatinine 9.61 H* 9.64 H* (0.52-1.04) mg/dL Glucose 67 L (74-99) mg/dL Assessment and Plan (1) Acute kidney injury Narrative/Plan: * Creatinine 9.62 with improving UOP * Attributed to prerenal etiology volume depletion secondary to acute pancreatitis per renal * Workup pending with CHASE, ANCA * temporary dialysis cath placement by Dr. Enriquez today with plans for 2 cycles today and tomorrow * Appreciate renal recommendations Current Visit: Yes Status: Acute Code(s): N17.9 - ACUTE KIDNEY FAILURE, UNSPECIFIED SNOMED Code(s): 71470347 (2) Hyperkalemia Narrative/Plan: * Potassium 4.8 status post temporizing measures with calcium gluconate, IV insulin, D50W and Kayexalate * Secondary to acute kidney injury * Continued on normal saline per nephrology, Lasix discontinued Current Visit: Yes Status: Resolved Code(s): E87.5 - HYPERKALEMIA SNOMED Code(s): 00426600 (3) Pancreatitis Narrative/Plan: * Etiology unknown appreciate general surgery recommendations * Right upper quadrant ultrasound showing hydrops gallbladder * Lipase trending down to 348 from 917 on presentation * GI consulted for further work up Current Visit: Yes Status: Acute Code(s): K85.90 - ACUTE PANCREATITIS WITHOUT NECROSIS OR INFECTION, UNSP SNOMED Code(s): 13187511 Plan: Disposition * Follow-up consultants recommendations continue to check daily electrolytes * Anticipated discharge 2 to 3 days
--- NOTE | 2018-06-05 15:04 | P.PN ---
Subjective Progress Note Date: 06/05/18 Principal diagnosis: Abdominal pain We were consulted yesterday to see this patient for pancreatitis. Patient is known to Dr. Daniel from prior lap band. She was feeling poorly last week and had her lap band empty. After the band was emptied she fairly felt no better. She came to the ER for evaluation. CAT scan was performed showing no definite abnormalities. The patient's labs however were quite impressive with acute renal failure identified. The patient had been in the ER 1 week prior and had CAT scan of the facial bones neck and brain. That was with IV contrast. The patient's creatinine at that time was normal. Patient has felt better since she was given pain medications on Tuesday evening. Ultrasound was obtained which showed no gallstones. Objective - Vital Signs Vital signs: Vital Signs Temp 98.3 F 06/05/18 07:24 Pulse 95 06/05/18 07:24 Resp 16 06/05/18 07:24 BP 145/78 06/05/18 07:24 Pulse Ox 95 06/05/18 07:24 Intake & Output 06/04/18 06/05/18 06/05/18 18:59 06:59 18:59 Intake Total 1000 1990 Output Total 1050 750 Balance 1000 940 -750 Intake: Intake, IV Titration 1000 1250 Amount Sodium Chloride 0.9% 1, 1000 1250 000 ml @ 125 mls/hr IV . Q8H [facility] Rx#:[id number] Oral 740 Output: Urine 1050 750 Other: Voiding Method Toilet Toilet # Voids 2 3 - Exam Brenda: Soft, minimal distention, minimal tenderness - Labs CBC & Chem 7: 06/04/18 06:42 06/05/18 06:38 Labs: Abnormal Lab Results - Last 24 Hours (Table) 06/04/18 06/05/18 Range/Units 18:09 06:38 Potassium 5.4 H (3.5-5.1) mmol/L Chloride 108 H (98-107) mmol/L Carbon Dioxide 21 L 17 L (22-30) mmol/L BUN 58 H 57 H (7-17) mg/dL Creatinine 9.61 H* 9.64 H* (0.52-1.04) mg/dL Glucose 67 L (74-99) mg/dL Assessment and Plan (1) Acute pancreatitis Narrative/Plan: Patient with acute renal failure. On admission found to have elevation of amylase and lipase. Etiology for the patient's kidney failure could be on the basis of pancreatitis although somewhat unusual for the degree of pancreatitis. Other etiologies for the patient's acute renal failure should be investigated. For now we'll gradually advance diet. Will follow with you. Current Visit: Yes Status: Acute Code(s): K85.90 - ACUTE PANCREATITIS WITHOUT NECROSIS OR INFECTION, UNSP SNOMED Code(s): 718937114
--- NOTE | 2018-06-05 17:01 | P.GSCN ---
History of Present Illness History of present illness: 57-year-old white female, patient has been admitted with history of acute kidney injury, history of hyperkalemia, history of pancreatitis patient is a high creatinine and high potassium. I was consulted for placement of urgent dialysis catheter Medical history no history of loss history of diabetes hypertension coronary artery disease Neck examination neck is supple no bruit appreciated Chest examination first and second sound normal there is good entry both lungs Abdomen soft nontender Vascular examination femorals palpable bilateral Plan is placement of a dialysis catheter right femoral approach risk and complication discussed Past Medical History Additional Past Medical History / Comment(s): Blood clot in Left eye (origin unknown)...blood work/dx tests such as carotid u/s performed to determine etiology but remains unknown, History of Any Multi-Drug Resistant Organisms: None Reported Past Surgical History: Bariatric Surgery, Orthopedic Surgery, Tonsillectomy Additional Past Surgical History / Comment(s): Right knee meniscus repair (Feb 2016), Bariatric Lap band May 2009, bilateral cataract surgery (November 2013), Tonsillectomy , lin carpal tunnel Past Anesthesia/Blood Transfusion Reactions: No Reported Reaction Additional Past Anesthesia/Blood Transfusion Reaction / Comm: No hx of blood transfusion Past Psychological History: No Psychological Hx Reported Smoking Status: Never smoker Past Alcohol Use History: None Reported Past Drug Use History: None Reported - Past Family History Father Family Medical History: Unable to Obtain Additional Family Medical History / Comment(s): does not know who her biologic father is Mother Additional Family Medical History / Comment(s): no hx of cancer or heart disease. Reports no family hx of cancer or heart disease Medications and Allergies Home Medications Medication Instructions Recorded Confirmed Type Aspirin [Adult Low Dose Aspirin EC] 81 mg PO DAILY 03/08/16 06/03/18 History Allergies Allergy/AdvReac Type Severity Reaction Status Date / Time No Known Allergies Allergy Verified 06/03/18 08:00 Surgical - Exam Vital Signs Temp Pulse Resp BP Pulse Ox 98.2 F 114 H 18 145/86 98 06/02/18 23:35 06/02/18 23:35 06/02/18 23:35 06/02/18 23:35 06/02/18 23:35 Results - Labs 06/04/18 06:42 06/05/18 06:38 Abnormal Lab Results - Last 24 Hours (Table) 06/04/18 06/05/18 Range/Units 18:09 06:38 Potassium 5.4 H (3.5-5.1) mmol/L Chloride 108 H (98-107) mmol/L Carbon Dioxide 21 L 17 L (22-30) mmol/L BUN 58 H 57 H (7-17) mg/dL Creatinine 9.61 H* 9.64 H* (0.52-1.04) mg/dL Glucose 67 L (74-99) mg/dL Diabetes panel 06/04/18 06/05/18 Range/Units 18:09 06:38 Sodium 139 140 (137-145) mmol/L Potassium 5.4 H 4.8 (3.5-5.1) mmol/L Chloride 107 108 H (98-107) mmol/L Carbon Dioxide 21 L 17 L (22-30) mmol/L BUN 58 H 57 H (7-17) mg/dL Creatinine 9.61 H* 9.64 H* (0.52-1.04) mg/dL Glucose 79 67 L (74-99) mg/dL Calcium 8.9 8.6 (8.4-10.2) mg/dL Calcium panel 06/04/18 06/05/18 Range/Units 18:09 06:38 Calcium 8.9 8.6 (8.4-10.2) mg/dL Pituitary panel 06/04/18 06/05/18 Range/Units 18:09 06:38 Sodium 139 140 (137-145) mmol/L Potassium 5.4 H 4.8 (3.5-5.1) mmol/L Chloride 107 108 H (98-107) mmol/L Carbon Dioxide 21 L 17 L (22-30) mmol/L BUN 58 H 57 H (7-17) mg/dL Creatinine 9.61 H* 9.64 H* (0.52-1.04) mg/dL Glucose 79 67 L (74-99) mg/dL Calcium 8.9 8.6 (8.4-10.2) mg/dL Adrenal panel 06/04/18 06/05/18 Range/Units 18:09 06:38 Sodium 139 140 (137-145) mmol/L Potassium 5.4 H 4.8 (3.5-5.1) mmol/L Chloride 107 108 H (98-107) mmol/L Carbon Dioxide 21 L 17 L (22-30) mmol/L BUN 58 H 57 H (7-17) mg/dL Creatinine 9.61 H* 9.64 H* (0.52-1.04) mg/dL Glucose 79 67 L (74-99) mg/dL Calcium 8.9 8.6 (8.4-10.2) mg/dL
[2018-06-05 17:27] LABS: Protein, Total 5.3 g/dL (6.2-8.2)
[2018-06-05 17:58] LABS: Anti-DNA, DS unit <1.0 IU/mL; DNA Double-Stranded NEGATIVE (NEGATIVE)
--- NOTE | 2018-06-05 19:34 | OP ---
OPERATIVE REPORT PREOPERATIVE DIAGNOSIS: Acute and chronic renal failure with hyperkalemia. PROCEDURE: Dialysis catheter placement via the right femoral approach. DESCRIPTION OF PROCEDURE: The patient was seen in her room. Right groin was shaved and prepped and draped in the usual sterile manner. Lidocaine 1% was infiltrated. Micropuncture was introduced into the right common femoral vein. Micropuncture guidewire was passed and 4-Afghan dilator was advanced on top of the guidewire. After that we passed the regular guidewire without any resistance and dilator was advanced. After that we placed a dialysis catheter on the top of the guidewire. Guide was removed. Flushed with heparin saline and Hep-locked. Secured with 3-0 nylon. Patient tolerated the procedure well. MMODL / IJN: [id number] /
[2018-06-05] MEDS: ACETAMINOPHEN TAB 325 MG TAB PO PRN (21:37)
--- NOTE | 2018-06-05 21:40 | P.CONS ---
History of Present Illness - Reason for Consult Consult date: 06/05/18 Pancreatitis Requesting physician: Ole Alcala - Chief Complaint Abdominal pain - History of Present Illness 57-year-old female with a medical history significant for prior gastric surgery in 2009 and presented to the hospital with complaints of abdominal pain. At time of presentation she reports that she was having 3-4 days of abdominal pain which increased in severity. The pain was located around the umbilicus and was described as sharp and diffusely across her abdomen. The patient had been seen prior to coming to the hospital in the outpatient setting by her surgeon with concerns that the pain was related to her lap band and at that time had deflation of the lap band. Initially she thought she had some improvement. However she presented to the hospital due to continued pain. On presentation to the hospital she was found to have a markedly elevated creatinine as well as elevation in her lipase greater than 3 times upper limit of normal. Labs today are significant for a WBC 10.5, hemoglobin 11.5, platelet count 382,000, lipase 348 down from 917, total bilirubin 0.5, alkaline phosphatase 137, AST 27 and ALT 41. Computed tomography scan on was significant for volume overload with mild cardiomegaly, trace pericardial effusion and pleural effusion and ascites. Ultrasound was significant for mild gallbladder hydrops without any cholelithiasis or wall thickening noted. Currently the patient is being managed by her primary team with nephrology and surgery on consult. Plan is for renal replacement therapy. Review of Systems REVIEW OF SYSTEMS: CONSTITUTIONAL: Denies any fevers, chills, weight change or fatigue. CARDIOVASCULAR: Denies any chest pain, palpitations high or low blood pressures RESPIRATORY: Denies any shortness of breath, hemoptysis or cough. GENITOURINARY: No dysuria or hematuria. MUSCULOSKELETAL: No weakness reported. SKIN: Denies any new rashes or lesions, jaundice or pallor. PSYCHIATRIC: Denies any depression or anxiety. NEUROLOGY: Denies headache, denies any new focal deficits. EARS/NOSE/THROAT: No recent hearing change, congestion, nasal discharge or sore throat. EYES: No pain in eyes, discharge or change in vision. GASTROINTESTINAL: As per HPI. Past Medical History Additional Past Medical History / Comment(s): Blood clot in Left eye (origin unknown)...blood work/dx tests such as carotid u/s performed to determine etiology but remains unknown, History of Any Multi-Drug Resistant Organisms: None Reported Past Surgical History: Bariatric Surgery, Orthopedic Surgery, Tonsillectomy Additional Past Surgical History / Comment(s): Right knee meniscus repair (Feb 2016), Bariatric Lap band May 2009, bilateral cataract surgery (November 2013), Tonsillectomy 1959's, lin carpal tunnel Past Anesthesia/Blood Transfusion Reactions: No Reported Reaction Additional Past Anesthesia/Blood Transfusion Reaction / Comm: No hx of blood transfusion Past Psychological History: No Psychological Hx Reported Smoking Status: Never smoker Past Alcohol Use History: None Reported Past Drug Use History: None Reported - Past Family History Father Family Medical History: Unable to Obtain Additional Family Medical History / Comment(s): does not know who her biologic father is Mother Additional Family Medical History / Comment(s): no hx of cancer or heart disease. Reports no family hx of cancer or heart disease Medications and Allergies Home Medications Medication Instructions Recorded Confirmed Type Aspirin [Adult Low Dose Aspirin EC] 81 mg PO DAILY 03/08/16 06/03/18 History Allergies Allergy/AdvReac Type Severity Reaction Status Date / Time No Known Allergies Allergy Verified 06/03/18 08:00 Physical Exam Vitals: Vital Signs Temp Pulse Resp BP Pulse Ox 06/05/18 07:24 98.3 F 95 16 145/78 95 06/05/18 01:45 98.6 F 111 H 16 157/98 96 06/04/18 20:18 97.9 F 98 16 158/100 96 06/04/18 16:00 93 12 06/04/18 15:00 97 F L 93 12 151/95 95 Intake and Output 06/04/18 06/05/18 06/05/18 22:59 06:59 14:59 Intake Total 500 1490 Output Total 300 750 750 Balance 200 740 -750 Intake: Intake, IV Titration 1250 Amount Sodium Chloride 0.9% 1, 1250 000 ml @ 125 mls/hr IV . Q8H REPLACED BY [facility] Rx#:[id number] Oral 500 240 Output: Urine 300 750 750 Other: Voiding Method Toilet # Voids 1 3 On physical examination, patient appears comfortable in no apparent distress. HEAD: Normocephalic, atraumatic. EYES: No scleral icterus. No conjunctival injection. MOUTH: No lesions, tongue midline. NECK: Trachea midline, no gross abnormalities. CHEST: Clear to auscultation with no wheezing or rhonchi appreciated. HEART: Regular rate and rhythm. ABDOMEN: Soft, obese. Bowel sounds are positive. No organomegaly. No guarding or rigidity. EXTREMITIES: No pedal edema. SKIN: No rashes, no jaundice. NEUROLOGIC: Alert and oriented x3. No focal deficits. Results CBC & Chem 7: 06/04/18 06:42 06/05/18 06:38 Labs: Abnormal Lab Results - Last 24 Hours (Table) 06/04/18 06/04/18 06/04/18 Range/Units 10:00 10:00 18:09 Potassium 5.4 H (3.5-5.1) mmol/L Chloride (98-107) mmol/L Carbon Dioxide 21 L (22-30) mmol/L BUN 58 H (7-17) mg/dL Creatinine 9.61 H* (0.52-1.04) mg/dL Glucose (74-99) mg/dL Ur 24 Hour Volume 3000 H 3000 H (800-1800) mls Ur Creatinine 24 Hour 726.0 L (800.0-1800.0) mg/24hr U Tot Protein 24h, Calc 1050 H (42.0-225.0) mg/24hr 06/05/18 Range/Units 06:38 Potassium (3.5-5.1) mmol/L Chloride 108 H (98-107) mmol/L Carbon Dioxide 17 L (22-30) mmol/L BUN 57 H (7-17) mg/dL Creatinine 9.64 H* (0.52-1.04) mg/dL Glucose 67 L (74-99) mg/dL Ur 24 Hour Volume (800-1800) mls Ur Creatinine 24 Hour (800.0-1800.0) mg/24hr U Tot Protein 24h, Calc (42.0-225.0) mg/24hr CT scan - abdomen: report reviewed (Computed tomography scan of the abdomen without contrast with findings of volume overload with mild cardiomegaly, trace pericardial effusion, pleural effusion and ascites.) Assessment and Plan (1) Acute pancreatitis Narrative/Plan: Patient presenting with abdominal pain and findings of elevation in her lipase greater than 3 times the upper limit of normal consistent with acute pancreatitis. CT findings consistent with volume overload without any evidence of pancreatitis on CT of the abdomen without contrast. Ultrasound significant for gallbladder distention without any wall thickening or cholelithiasis. Given the elevation in lipase just greater than 3 times upper limit of normal this may represent a late presentation of pancreatitis but can also be secondary to acute elevation in creatinine as lipase is renally excreted and will elevate in the setting of kidney injury. At this time it is felt from nephrology that is likely acute pancreatitis resulting in dehydration and subsequent acute tubular necrosis. If this is case then creatinine remaining elevated greater than 24-48 hours after pancreatitis does portend a more severe case if pancreatitis. Patient's pain however seems to be improved. No evidence of cholelithiasis and patient denying any alcohol use, differential for other causes is broad including medications which do not seem to be the trigger, virus, with studies ordered to rule out autoimmune pancreatitis pending. Current Visit: Yes Status: Acute Code(s): K85.90 - ACUTE PANCREATITIS WITHOUT NECROSIS OR INFECTION, UNSP SNOMED Code(s): 134580926 (2) Abdominal pain Current Visit: Yes Status: Acute Code(s): R10.9 - UNSPECIFIED ABDOMINAL PAIN SNOMED Code(s): 10690125 (3) Acute kidney injury Narrative/Plan: Acute elevation in creatinine felt to be secondary to dehydration and acute tubular necrosis. Plan was for catheter placement today with subsequent renal replacement therapy. Current Visit: Yes Status: Acute Code(s): N17.9 - ACUTE KIDNEY FAILURE, UNSPECIFIED SNOMED Code(s): 14793059 (4) Ascites Current Visit: Yes Status: Acute Code(s): R18.8 - OTHER ASCITES SNOMED Code(s): 198789803 (5) Elevated lipase Current Visit: Yes Status: Acute Code(s): R74.8 - ABNORMAL LEVELS OF OTHER SERUM ENZYMES SNOMED Code(s): 627745804 Plan: Supportive care Okay to initiate diet Continue to monitor labs including CMP, CBC, vital signs and clinically Appreciate recommendations from nephrology and surgical services IgG subclasses ordered CHASE found to be negative Continue gentle fluid hydration with rate decrease by nephrology service today Continue to monitor urine output No plan for endoscopic evaluation at this time Thank you for allowing us to participate in the care of this patient we will continue to follow
[2018-06-06 05:04] LABS: Hepatitis A Antibody IgM Non-Reactive (Non-Reactive); Hepatitis B Core IgM Non-Reactive (Non-Reactive)
[2018-06-06] MEDS: SODIUM CHLORIDE 0.9% 1,000 ML IV SCH ×2 (08:07→19:46)
--- NOTE | 2018-06-06 08:09 | US ---
EXAMINATION TYPE: US kidneys/renal and bladder DATE OF EXAM: 06/06/2018 COMPARISON: NONE CLINICAL HISTORY: doris. ACUTE ONSET ON SHANNA;L FAILURE, NO OTHER RENAL HISTORY, ON DIALYSIS EXAM MEASUREMENTS: Right Kidney: 12.1 X 6.2 X 5.4 cm Left Kidney: 12.7 X 5.3 X 7.0 cm Right Kidney: No hydronephrosis or masses seen Left Kidney: No hydronephrosis or masses seen Bladder: wnl Bilateral Jets seen: Yes There is no evidence for hydronephrosis at this point in time. No nephrolithiasis is seen. No tim s are identified. The urinary bladder is anechoic. Bilateral ureteral jets are seen. IMPRESSION: No distinct abnormality appreciated.
[2018-06-06 08:11] LABS: Calcium 8.8 mg/dL (8.4-10.2); Magnesium 1.8 mg/dL (1.6-2.3); Potassium 4.7 mmol/L (3.5-5.1)
[2018-06-06 09:49] LABS: Amylase 65 U/L (30-110); Lipase 135 U/L (23-300)
--- NOTE | 2018-06-06 10:47 | P.PN ---
<Racheal Starr - Last Filed: 06/06/18 10:33> Subjective Progress Note Date: 06/06/18 CHIEF COMPLAINT: Pancreatitis HISTORY OF PRESENT ILLNESS: Patient examined this morning at the bedside. Currently undergoing dialysis. Tolerating full liquid diet. Reports eating oatmeal this morning for breakfast. Denies nausea or vomiting. Denies abdominal pain. Creatinine 7.55 today. Amylase 65. Lipase 135. PHYSICAL EXAM: VITAL SIGNS: Reviewed. GENERAL: Well-developed in no acute distress. HEENT: No sclera icterus. Extraocular movements grossly intact. Moist buccal mucosa. Head is atraumatic, normocephalic. ABDOMEN: Soft. Nondistended. Nontender. Dialysis catheter to right groin. NEUROLOGIC: Alert and oriented. Cranial nerves II through XII grossly intact. ASSESSMENT: 1. Acute pancreatitis 2. History of gastric banding PLAN: 1. Advance diet to soft diet/renal diet 2. No surgical intervention recommended at this time Nurse practitioner note has been reviewed by physician. Signing provider agrees with the documented findings, assessment, and plan of care. Objective - Vital Signs Vital signs: Vital Signs Temp 98.3 F 06/06/18 07:49 Pulse 108 H 06/06/18 07:49 Resp 15 06/06/18 07:49 BP 141/68 06/06/18 07:49 Pulse Ox 98 06/06/18 07:49 Intake & Output 06/05/18 06/06/18 06/06/18 18:59 06:59 18:59 Intake Total 270 240 Output Total 750 1800 700 Balance -480 1800 460 Intake: Oral 270 240 Output: Urine 750 1800 700 Other: # Voids 2 - Labs CBC & Chem 7: 06/04/18 06:42 06/06/18 07:24 Labs: Abnormal Lab Results - Last 24 Hours (Table) 06/05/18 06/06/18 Range/Units 06:38 07:24 BUN 41 H (7-17) mg/dL Creatinine 7.55 H* (0.52-1.04) mg/dL Glucose 61 L (74-99) mg/dL Total Protein (PEP) 5.3 L (6.2-8.2) g/dL <Omid Bansal - Last Filed: 06/06/18 16:56> Subjective As above. Patient was doing well however had some increased left upper quadrant pain after her meal for lunch. Today's amylase and lipase normal. We'll recheck amylase and lipase tomorrow. Objective - Vital Signs Vital signs: Vital Signs Temp 98.1 F 06/06/18 14:42 Pulse 119 H 06/06/18 14:42 Resp 15 06/06/18 14:42 BP 105/56 06/06/18 14:42 Pulse Ox 94 L 06/06/18 14:42 Intake & Output 06/05/18 06/06/18 06/06/18 18:59 06:59 18:59 Intake Total 270 880 Output Total 750 1800 1100 Balance -480 -1800 -220 Intake: Intake, IV Titration 640 Amount Sodium Chloride 0.9% 1, 640 000 ml @ 80 mls/hr IV . [id number] [facility] Rx#:[id number] Oral 270 240 Output: Urine 750 1800 1100 Other: # Voids 2 - Labs CBC & Chem 7: 06/04/18 06:42 06/06/18 07:24 Labs: Abnormal Lab Results - Last 24 Hours (Table) 06/05/18 06/06/18 06/06/18 Range/Units 06:38 07:24 07:24 BUN 41 H (7-17) mg/dL Creatinine 7.55 H* (0.52-1.04) mg/dL Glucose 61 L (74-99) mg/dL Total Protein (PEP) 5.3 L (6.2-8.2) g/dL Albumin (PEP) 2.84 L (3.80-4.90) g/dL [id number] 0.45 H (0.10-0.40) g/dL Beta Globulins 0.52 L (0.60-1.30) g/dL Gamma Globulins 0.63 L (0.70-1.50) g/dL IgG2 103.0 L (169.0-640.0) mg/dL Free Lambda LC, Quant 325.00 H (0.57-2.63) mg/dL Assessment and Plan (1) Acute pancreatitis Current Visit: Yes Status: Acute Code(s): K85.90 - ACUTE PANCREATITIS WITHOUT NECROSIS OR INFECTION, UNSP SNOMED Code(s): 643422072
[2018-06-06] MEDS: ACETAMINOPHEN TAB 325 MG TAB PO PRN (11:49)
--- NOTE | 2018-06-06 11:53 | P.PN ---
Subjective Progress Note Date: 06/06/18 Principal diagnosis: Pancreatitis acute kidney injury Receiving dialysis. No abdominal complaints. Pancreatic enzymes improved. Objective - Vital Signs Vital signs: Vital Signs Temp 98.3 F 06/06/18 07:49 Pulse 108 H 06/06/18 07:49 Resp 15 06/06/18 07:49 BP 141/68 06/06/18 07:49 Pulse Ox 98 06/06/18 07:49 Intake & Output 06/05/18 06/06/18 06/06/18 18:59 06:59 18:59 Intake Total 270 240 Output Total 750 1800 700 Balance -480 -1800 -460 Intake: Oral 270 240 Output: Urine 750 1800 700 Other: # Voids 2 - Exam General appearance: The patient is alert, oriented, in no acute distress. Receiving dialysis. HET: Head is normocephalic and atraumatic. Pupils are equal and reactive. Oropharynx is clear without lesions. Neck: Supple without lymphadenopathy. Trachea midline. Heart: S1 S2. Regular rate and rhythm. Lungs: No crackles or wheezes are heard. Abdomen: Soft, nontender, nondistended with bowel sounds. No peritoneal signs. No palpable organomegaly or masses. Extremities: Normal skin color and turgor. No cyanosis, rash, ulceration, clubbing, or edema. Radial and pedal pulses are 2/4 bilaterally. Neurological: No focal deficits. Strength and sensation are grossly intact. - Labs CBC & Chem 7: 06/04/18 06:42 06/06/18 07:24 Labs: Abnormal Lab Results - Last 24 Hours (Table) 06/05/18 06/06/18 Range/Units 06:38 07:24 BUN 41 H (7-17) mg/dL Creatinine 7.55 H* (0.52-1.04) mg/dL Glucose 61 L (74-99) mg/dL Total Protein (PEP) 5.3 L (6.2-8.2) g/dL Assessment and Plan (1) Acute pancreatitis Current Visit: Yes Status: Acute Code(s): K85.90 - ACUTE PANCREATITIS WITHOUT NECROSIS OR INFECTION, UNSP SNOMED Code(s): 589583488 (2) Abdominal pain Current Visit: Yes Status: Acute Code(s): R10.9 - UNSPECIFIED ABDOMINAL PAIN SNOMED Code(s): 98994841 (3) Acute kidney injury Current Visit: Yes Status: Acute Code(s): N17.9 - ACUTE KIDNEY FAILURE, UNSPECIFIED SNOMED Code(s): 13120546 (4) Ascites Current Visit: Yes Status: Acute Code(s): R18.8 - OTHER ASCITES SNOMED Code(s): 342382213 Plan: Supportive care Diet as tolerated Continue to monitor labs including CMP, CBC, vital signs and clinically Appreciate recommendations from nephrology and surgical services IgG subclasses ordered results pending CHASE found to be negative Dialysis per nephrology Continue to monitor urine output No plan for endoscopic evaluation at this time Assessment and plan a care discussed with Dr. Magallanes
--- NOTE | 2018-06-06 11:56 | P.PN ---
Subjective Patient is seen in follow-up for acute kidney injury. Her baseline creatinine from earlier this month was near 1. This admission it's been staying above 9. Urine output is good. No edema. Currently on clear liquid diet for acute pancreatitis. Lipase levels are trending down. No abdominal pain. She was started on hemodialysis on June 05. Currently seen while undergoing hemodialysis. Tolerating it well. Vital signs are stable. General: The patient appeared well nourished and normally developed. HEENT: Head exam is unremarkable. Neck is without jugular venous distension. LUNGS: Lungs are clear to auscultation and percussion. Breath sounds decreased. HEART: Rate and Rhythm are regular. First and second heart sounds normal. No mur murs, rubs or gallops. ABDOMEN: Abdominal exam reveals normal bowel sounds. Non-tender and non-dist ended. No evidence of peritonitis. EXTREMITITES: No clubbing, cyanosis, or edema. Objective - Vital Signs Vital signs: Vital Signs Temp 98.3 F 06/06/18 07:49 Pulse 108 H 06/06/18 07:49 Resp 15 06/06/18 07:49 BP 141/68 06/06/18 07:49 Pulse Ox 98 06/06/18 07:49 Intake & Output 06/05/18 06/06/18 06/06/18 18:59 06:59 18:59 Intake Total 270 240 Output Total 750 1800 700 Balance -480 -1800 -460 Intake: Oral 270 240 Output: Urine 750 1800 700 Other: # Voids 2 - Labs CBC & Chem 7: 06/04/18 06:42 06/06/18 07:24 Labs: Abnormal Lab Results - Last 24 Hours (Table) 06/05/18 06/06/18 Range/Units 06:38 07:24 BUN 41 H (7-17) mg/dL Creatinine 7.55 H* (0.52-1.04) mg/dL Glucose 61 L (74-99) mg/dL Total Protein (PEP) 5.3 L (6.2-8.2) g/dL Assessment and Plan Plan: Assessment: 1. Acute kidney injury secondary to ATN secondary to intravascular volume depletion and pancreatitis. She does have 1 g of proteinuria however this can be nonspecific in the setting of acute kidney injury. No hydronephrosis noted on CAT scan. Baseline creatinine near 1. Creatinine was above 9 with no improvement despite IV hydration. She was subsequently started on hemodialysis on June 05. Serologic workup so far has been negative. Urine eosinophils negative. 2. Acute pancreatitis. Lipase levels trending down. Currently on clear liquid diet. Surgery following. 3. Hyperkalemia secondary to acute kidney injury and metabolic acidosis. Better. 4. Metabolic acidosis secondary to acute kidney injury and IV fluids. Better. Plan: Currently seen while undergoing hemodialysis. I will hold off on HD tomorrow and monitor renal function for recovery. Maintain normal saline at 80 mL an hour. Diet to be advanced per surgical recommendations. Follow-up pending serologies. Will consider biopsy pending results. Check phosphorus level.
[2018-06-06 13:42] LABS: Albumin 2.84 g/dL (3.80-4.90); Gamma Globulin 0.63 g/dL (0.70-1.50)
[2018-06-06 13:47] LABS: Hepatitis B Surface AB- Quant 3.5 mIU/mL
[2018-06-06 14:05] LABS: IgG Subclass 3 21.3 mg/dL (11.0-85.0); IgG Subclass 4 28.7 mg/dL (3.0-175.0)
[2018-06-06 15:12] LABS: C-ANCA <1:20 Titer (<1:20); P-ANCA <1:20 Titer (<1:20)
--- NOTE | 2018-06-06 16:37 | P.PN ---
Subjective Progress Note Date: 06/06/18 Principal diagnosis: abdominal pain Patient is a 57-year-old female with a past medical history of blood clot in the left eye, perimenopausal symptoms, and LAP-BAND procedure who presented with complaints of abdominal pain. She been seen by Dr. Maldonado outpatient one day prior to presentation and had some fluid drained from her lap band port which gave her some abdominal pain relief however the symptoms gradually returned she came back to the emergency department. In the emergency department she was found have an elevated BUN at 56 and elevated creatinine at 9.76 along with elevated potassium at 6.4. Her lipase was elevated at 917 and white blood cell count was elevated at 11.3. Urinalysis showed trace blood, trace leukocyte esterase, 9 white blood cells with rare mucus and bacteria cells. CT abdomen and pelvis without contrast revealed mild cardiomegaly, no abnormality within the kidney bladder or ureter L 10 no abnormal findings. Patient was subsequently admitted for further management of her acute renal failure. She was started on temporizing measures for her hyperkalemia was given a dose of Kayexalate. Nephrology was consulted. She was also made nothing by mouth secondary to possible pancreatitis with her elevated lipase. She was seen by GI who determined she could have mild pancreatitis however her elevated lipase could also be secondary to her acute renal failure. Her diet was advanced as her abdominal pain had improved. Initially the patient was managed conservatively with eliminating any nephrotoxic agents and IV fluids. Despite good urine output her creatinine remains 9 and she was started on dialysis on 06/05 after a temporary catheter was placed. Patient seen and examined at bedside. She complains of some pain behind her right calf overnight. It was crampy in nature and is now resolved but she is worried about blood clot. She is very concerned about everything and she has gotten her creatinine increased so quickly. She still feeling fatigued due to lack of sleep. She states her abdominal pain is better however she has ate very little. She has no bowel movement since Tuesday. She is overall feeling very fatigued. She denies any chest pain or shortness of breath. Objective - Vital Signs Vital signs: Vital Signs Temp 98.3 F 06/06/18 07:49 Pulse 108 H 06/06/18 07:49 Resp 15 06/06/18 07:49 BP 141/68 06/06/18 07:49 Pulse Ox 98 06/06/18 07:49 Intake & Output 06/05/18 06/06/18 06/06/18 18:59 06:59 18:59 Intake Total 270 240 Output Total 750 1800 700 Balance -480 -1800 -460 Intake: Oral 270 240 Output: Urine 750 1800 700 Other: # Voids 2 - Exam General: Ill appearing, non toxic, no distress, appears at stated age Derm: Pallor, warm, dry Head: atraumatic, normocephalic, symmetric Eyes: EOMI, no lid lag, anicteric sclera Mouth: no lip lesion, mucus membranes moist Cardiovascular: S1S2 reg, no murmur, positive posterior tibial pulse bilateral, Lungs: CTA bilateral, no rhonchi, no rales , no accessory muscle use Abdominal: soft, nontender to palpation, no guarding, no appreciable organomegaly Ext: no gross muscle atrophy, no edema, no contractures Neuro: CN II-XI grossly intact, no focal neuro deficits Psych: Alert, oriented, appropriate affect - Labs CBC & Chem 7: 06/04/18 06:42 06/06/18 07:24 Labs: Abnormal Lab Results - Last 24 Hours (Table) 06/05/18 06/06/18 Range/Units 06:38 07:24 BUN 41 H (7-17) mg/dL Creatinine 7.55 H* (0.52-1.04) mg/dL Glucose 61 L (74-99) mg/dL Total Protein (PEP) 5.3 L (6.2-8.2) g/dL Assessment and Plan Assessment: Acute renal failure likely secondary to ATN -On day #2 of hemodialysis -Nephrology recommendations -Avoid additional nephrotoxic agents -Strict I's and O's -Repeat basic metabolic profile in a.m. -Workup currently pending -Renal ultrasound without evidence of hydronephrosis Acute pancreatitis -Abdominal pain improved, continue diet as tolerated -GI recommendations appreciated History of lap band procedure -Status post removal of fluid from well Resolved: Hyperkalemia Non-anion gap metabolic acidosis DVT prophylaxis: Heparin Discussed with: Patient, nursing, HD nurse Anticipated discharge: 2-[address]: home A total of 25 minutes was spent on the care of this complex patient more than 50% of the time was spent in counseling and care coordination.
[2018-06-06] MEDS: HEPARIN SODIUM,PORCINE 5,000 UNIT/ML 1 ML VIAL SQ SCH (23:55)
[2018-06-07 07:24] LABS: HCT 32.4 % (34.0-46.0); HGB 10.5 gm/dL (11.4-16.0); MCH 27.8 pg (25.0-35.0); MCHC 32.5 g/dL (31.0-37.0); MCV 85.6 fL (80.0-100.0); Mean Platelet Volume 6.5; Platelet Count 331 k/uL (150-450); RBC 3.78 m/uL (3.80-5.40); RDW 14.6 % (11.5-15.5); WBC 9.3 k/uL (3.8-10.6)
[2018-06-07 07:52] LABS: Calcium 8.6 mg/dL (8.4-10.2); Phosphorus 5.2 mg/dL (2.5-4.5)
--- NOTE | 2018-06-07 08:29 | P.PN ---
<Racheal Starr - Last Filed: 06/07/18 09:10> Subjective Progress Note Date: 06/07/18 CHIEF COMPLAINT: Pancreatitis HISTORY OF PRESENT ILLNESS: Patient examined this morning. She is sitting up in the chair. She complains of back pain secondary to the hospital bed and reports she did not sleep at all last night. She ate some fruit for breakfast this morning. Tolerated well. Denies nausea or vomiting. Denies abdominal pain. Amylase 53. Lipase 219. PHYSICAL EXAM: VITAL SIGNS: Reviewed. GENERAL: Well-developed in no acute distress. HEENT: No sclera icterus. Extraocular movements grossly intact. Moist buccal mucosa. Head is atraumatic, normocephalic. ABDOMEN: Soft. Nondistended. Nontender. Dialysis catheter to right groin. NEUROLOGIC: Alert and oriented. Cranial nerves II through XII grossly intact. ASSESSMENT: 1. Acute pancreatitis 2. History of gastric banding PLAN: 1. Continue current diet 2. No surgical intervention recommended at this time 3. We will sign off. Please reconsult if needed. Nurse practitioner note has been reviewed by physician. Signing provider agrees with the documented findings, assessment, and plan of care. Objective - Vital Signs Vital signs: Vital Signs Temp 98.0 F 06/07/18 07:49 Pulse 98 06/07/18 07:49 Resp 18 06/07/18 01:09 BP 159/90 06/07/18 07:49 Pulse Ox 97 06/07/18 07:49 Intake & Output 06/06/18 06/07/18 06/07/18 18:59 06:59 18:59 Intake Total 880 970 Output Total 1100 Balance -220 970 Intake: Intake, IV Titration 640 720 Amount Sodium Chloride 0.9% 1, 640 720 000 ml @ 80 mls/hr IV . [id number] [facility] Rx#:[id number] Oral 240 250 Output: Urine 1100 Other: # Voids 2 - Labs CBC & Chem 7: 06/07/18 06:48 06/07/18 06:48 Labs: Abnormal Lab Results - Last 24 Hours (Table) 06/05/18 06/06/18 06/06/18 Range/Units 06:38 07:24 07:24 RBC (3.80-5.40) m/uL Hgb (11.4-16.0) gm/dL Hct (34.0-46.0) % BUN (7-17) mg/dL Creatinine (0.52-1.04) mg/dL Glucose (74-99) mg/dL Phosphorus (2.5-4.5) mg/dL Albumin (PEP) 2.84 L (3.80-4.90) g/dL Atwii-4-Qsvgopexi 0.45 H (0.10-0.40) g/dL Beta Globulins 0.52 L (0.60-1.30) g/dL Gamma Globulins 0.63 L (0.70-1.50) g/dL IgG2 103.0 L (169.0-640.0) mg/dL Tot Complement (CH50) >98 H (42 - 95) U/mL Free Lambda LC, Quant 325.00 H (0.57-2.63) mg/dL 06/06/18 06/07/18 06/07/18 Range/Units 07:24 06:48 06:48 RBC 3.78 L (3.80-5.40) m/uL Hgb 10.5 L (11.4-16.0) gm/dL Hct 32.4 L (34.0-46.0) % BUN 41 H 27 H (7-17) mg/dL Creatinine 7.55 H* 5.02 H (0.52-1.04) mg/dL Glucose 61 L (74-99) mg/dL Phosphorus 5.2 H (2.5-4.5) mg/dL Albumin (PEP) (3.80-4.90) g/dL Gjjhx-3-Lpyttbagn (0.10-0.40) g/dL Beta Globulins (0.60-1.30) g/dL Gamma Globulins (0.70-1.50) g/dL IgG2 (169.0-640.0) mg/dL Tot Complement (CH50) (42 - 95) U/mL Free Lambda LC, Quant (0.57-2.63) mg/dL <Omid Bansal - Last Filed: 06/07/18 09:44> Subjective Agree with above. Patient's pain improved. Amylase and lipase normalized. Recommend outpatient follow-up with Dr. Daniel. Objective - Vital Signs Vital signs: Vital Signs Temp 98.0 F 06/07/18 07:49 Pulse 98 06/07/18 07:49 Resp 18 06/07/18 01:09 BP 159/90 06/07/18 07:49 Pulse Ox 97 06/07/18 07:49 Intake & Output 06/06/18 06/07/18 06/07/18 18:59 06:59 18:59 Intake Total 880 970 Output Total 1100 Balance -220 970 Intake: Intake, IV Titration 640 720 Amount Sodium Chloride 0.9% 1, 640 720 000 ml @ 80 mls/hr IV . [id number] [facility] Rx#:[id number] Oral 240 250 Output: Urine 1100 Other: # Voids 2 - Labs CBC & Chem 7: 06/07/18 06:48 06/07/18 06:48 Labs: Abnormal Lab Results - Last 24 Hours (Table) 06/05/18 06/06/18 06/06/18 Range/Units 06:38 07:24 07:24 RBC (3.80-5.40) m/uL Hgb (11.4-16.0) gm/dL Hct (34.0-46.0) % BUN (7-17) mg/dL Creatinine (0.52-1.04) mg/dL Phosphorus (2.5-4.5) mg/dL Albumin (PEP) 2.84 L (3.80-4.90) g/dL Juqjd-4-Lsxksuwhz 0.45 H (0.10-0.40) g/dL Beta Globulins 0.52 L (0.60-1.30) g/dL Gamma Globulins 0.63 L (0.70-1.50) g/dL IgG2 103.0 L (169.0-640.0) mg/dL Tot Complement (CH50) >98 H (42 - 95) U/mL Free Lambda LC, Quant 325.00 H (0.57-2.63) mg/dL 06/07/18 06/07/18 Range/Units 06:48 06:48 RBC 3.78 L (3.80-5.40) m/uL Hgb 10.5 L (11.4-16.0) gm/dL Hct 32.4 L (34.0-46.0) % BUN 27 H (7-17) mg/dL Creatinine 5.02 H (0.52-1.04) mg/dL Phosphorus 5.2 H (2.5-4.5) mg/dL Albumin (PEP) (3.80-4.90) g/dL Qhkze-4-Zbgnvrmbf (0.10-0.40) g/dL Beta Globulins (0.60-1.30) g/dL Gamma Globulins (0.70-1.50) g/dL IgG2 (169.0-640.0) mg/dL Tot Complement (CH50) (42 - 95) U/mL Free Lambda LC, Quant (0.57-2.63) mg/dL Assessment and Plan (1) Acute pancreatitis Current Visit: Yes Status: Acute Code(s): K85.90 - ACUTE PANCREATITIS WITHOUT NECROSIS OR INFECTION, UNSP SNOMED Code(s): 530535620
[2018-06-07] MEDS: HEPARIN SODIUM,PORCINE 5,000 UNIT/ML 1 ML VIAL SQ SCH ×2 (09:01→17:37)
[2018-06-07] MEDS: ACETAMINOPHEN TAB 325 MG TAB PO PRN (09:01)
[2018-06-07] MEDS: SODIUM CHLORIDE 0.9% 1,000 ML IV SCH (09:06)
--- NOTE | 2018-06-07 09:16 | US ---
EXAMINATION TYPE: US venous doppler duplex LE RT DATE OF EXAM: 06/07/2018 8:38 AM COMPARISON: NONE CLINICAL HISTORY: pain. Patient states having right calf tightness yesterday. Heparin shot last nigh t. Hx of blood clot in eye x many years ago. Right and left foot swelling. No redness. Patient thorne s a dialysis port placed on Tuesday in right groin. SIDE PERFORMED: Right TECHNIQUE: The lower extremity deep venous system is examined utilizing real time linear array sonog zack with graded compression, doppler sonography and color-flow sonography. VESSELS IMAGED: External Iliac Vein (EIV)- not visualized due to port Common Femoral Vein Deep Femoral Vein Greater Saphenous Vein *- not visualized due to port Femoral Vein Popliteal Vein Small Saphenous Vein * Proximal Calf Veins (* superficial vessels) Grayscale, color doppler, spectral doppler imaging performed of the deep veins of the right lower ext remity. There is normal flow, compressibility, vascular waveforms. Right Leg: Appears negative for DVT. Limitations stated above. IMPRESSION: Portions of the right lower extremity are not visualized (greater saphenous vein and ext ernal iliac vein) as dialysis port overlies this region. Within the remainder of the visualized right lower extremity venous system there is no evidence of deep venous thrombosis.
--- NOTE | 2018-06-07 10:08 | P.PN ---
Subjective Patient is seen in follow-up for acute kidney injury. Her baseline creatinine from earlier this month was near 1. This admission it's been staying above 9. Urine output is good. Currently on soft diet for acute pancreatitis. No abdominal pain. She was started on hemodialysis on June 05. She underwent second treatment of hemodialysis yesterday. Lambda light chains are noted to be significantly elevated. Vital signs are stable. General: The patient appeared well nourished and normally developed. HEENT: Head exam is unremarkable. Neck is without jugular venous distension. LUNGS: Lungs are clear to auscultation and percussion. Breath sounds decreased. HEART: Rate and Rhythm are regular. First and second heart sounds normal. No murmurs, rubs or gallops. ABDOMEN: Abdominal exam reveals normal bowel sounds. Non-tender and non-diste nded. No evidence of peritonitis. EXTREMITITES: Trace edema. Objective - Vital Signs Vital signs: Vital Signs Temp 98.0 F 06/07/18 07:49 Pulse 98 06/07/18 07:49 Resp 18 06/07/18 01:09 BP 159/90 06/07/18 07:49 Pulse Ox 97 06/07/18 07:49 Intake & Output 06/06/18 06/07/18 06/07/18 18:59 06:59 18:59 Intake Total 880 970 Output Total 1100 Balance -220 970 Intake: Intake, IV Titration 640 720 Amount Sodium Chloride 0.9% 1, 640 720 000 ml @ 80 mls/hr IV . [id number] [facility] Rx#:[id number] Oral 240 250 Output: Urine 1100 Other: # Voids 2 - Labs CBC & Chem 7: 06/07/18 06:48 06/07/18 06:48 Labs: Abnormal Lab Results - Last 24 Hours (Table) 06/05/18 06/06/18 06/06/18 Range/Units 06:38 07:24 07:24 RBC (3.80-5.40) m/uL Hgb (11.4-16.0) gm/dL Hct (34.0-46.0) % BUN (7-17) mg/dL Creatinine (0.52-1.04) mg/dL Phosphorus (2.5-4.5) mg/dL Albumin (PEP) 2.84 L (3.80-4.90) g/dL Thbji-8-Pptojeyyz 0.45 H (0.10-0.40) g/dL Beta Globulins 0.52 L (0.60-1.30) g/dL Gamma Globulins 0.63 L (0.70-1.50) g/dL IgG2 103.0 L (169.0-640.0) mg/dL Tot Complement (CH50) >98 H (42 - 95) U/mL Free Lambda LC, Quant 325.00 H (0.57-2.63) mg/dL 06/07/18 06/07/18 Range/Units 06:48 06:48 RBC 3.78 L (3.80-5.40) m/uL Hgb 10.5 L (11.4-16.0) gm/dL Hct 32.4 L (34.0-46.0) % BUN 27 H (7-17) mg/dL Creatinine 5.02 H (0.52-1.04) mg/dL Phosphorus 5.2 H (2.5-4.5) mg/dL Albumin (PEP) (3.80-4.90) g/dL Fmojv-5-Bhurjzqcr (0.10-0.40) g/dL Beta Globulins (0.60-1.30) g/dL Gamma Globulins (0.70-1.50) g/dL IgG2 (169.0-640.0) mg/dL Tot Complement (CH50) (42 - 95) U/mL Free Lambda LC, Quant (0.57-2.63) mg/dL Assessment and Plan Plan: Assessment: 1. Acute kidney injury. She does have 1 g of proteinuria and lambda light chains are significantly elevated. 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 No hydronephrosis noted on CAT scan. Baseline creatinine near 1. Creatinine was above 9 with no improvement despite IV hydration. She was subsequently started on hemodialysis on June 05. Urine eosinophils negative. 2. Acute pancreatitis. Currently on soft diet. Surgery following. 3. Hyperkalemia secondary to acute kidney injury and metabolic acidosis. Better. 4. Metabolic acidosis secondary to acute kidney injury and IV fluids. Better. Plan: Decrease rate of normal saline to 50 mL an hour. Consult oncology for elevated lambda light chains. Patient will require either kidney or a bone marrow biopsy for definitive diagnosis. Hold off on hemodialysis today. Will reassess on a day-to-day basis. Discussed with primary team.
--- NOTE | 2018-06-07 16:22 | P.PN ---
Subjective Progress Note Date: 06/07/18 (delayed charting patient seen at 1030) Principal diagnosis: abdominal pain Patient is a 57-year-old female with a past medical history of blood clot in the left eye, perimenopausal symptoms, and LAP-BAND procedure who presented with complaints of abdominal pain. She been seen by Dr. Boudreaux as outpatient one day prior to presentation and had some fluid drained from her lap band port which gave her some abdominal pain relief however the symptoms gradually returned she came back to the emergency department. In the emergency department she was found have an elevated BUN at 56 and elevated creatinine at 9.76 along with elevated potassium at 6.4. Her lipase was elevated at 917 and white blood cell count was elevated at 11.3. Urinalysis showed trace blood, tra ce leukocyte esterase, 9 white blood cells with rare mucus and bacteria cells. CT abdomen and pelvis without contrast revealed mild cardiomegaly, no abnormality within the kidney bladder or ureter L 10 no abnormal findings. Patient was subsequently admitted for further management of her acute renal failure. She was started on temporizing measures for her hyperkalemia was given a dose of Kayexalate. Nephrology was consulted. She was also made nothing by mouth secondary to possible pancreatitis with her elevated lipase. She was seen by GI who determined she could have mild pancreatitis however her elevated lipase could also be secondary to her acute renal failure. Her diet was advanced as her abdominal pain had improved. Initially the patient was managed conservatively with eliminating any nephrotoxic agents and IV fluids. Despite good urine output her creatinine remains 9 and she was started on dialysis on 06/05 after a temporary catheter was placed. Work up revealed elevated lambda with protein spike on electrophoresis with concern of amyloidosis. Patient seen and examined at bedside. She c/o lower extremity edema with some SOB when lying flat. No additional leg cramping. Having some back pain from the bed which improved with tylenol. No other complaints at this time. No chest pain. Objective - Vital Signs Vital signs: Vital Signs Temp 98.0 F 06/07/18 07:49 Pulse 98 06/07/18 07:49 Resp 18 06/07/18 01:09 BP 159/90 06/07/18 07:49 Pulse Ox 97 06/07/18 07:49 Intake & Output 06/06/18 06/07/18 06/07/18 18:59 06:59 18:59 Intake Total 880 970 Output Total 1100 Balance -220 970 Intake: Intake, IV Titration 640 720 Amount Sodium Chloride 0.9% 1, 640 720 000 ml @ 80 mls/hr IV . [id number] [facility] Rx#:[id number] Oral 240 250 Output: Urine 1100 Other: # Voids 2 - Exam General: Ill appearing, non toxic, no distress, appears at stated age Derm: Pallor, warm, dry Head: atraumatic, normocephalic, symmetric Eyes: EOMI, no lid lag, anicteric sclera Mouth: no lip lesion, mucus membranes moist Cardiovascular: S1S2 reg, no murmur, positive posterior tibial pulse bilateral, Lungs: crackles bilateral, no rhonchi, no rales , no accessory muscle use Abdominal: soft, nontender to palpation, no guarding, no appreciable organomegaly Ext: no gross muscle atrophy, 1+ non pitting edema, no contractures Neuro: CN II-XI grossly intact, no focal neuro deficits Psych: Alert, oriented, appropriate affect - Labs CBC & Chem 7: 06/07/18 06:48 06/07/18 06:48 Labs: Abnormal Lab Results - Last 24 Hours (Table) 06/06/18 06/07/18 06/07/18 Range/Units 07:24 06:48 06:48 RBC 3.78 L (3.80-5.40) m/uL Hgb 10.5 L (11.4-16.0) gm/dL Hct 32.4 L (34.0-46.0) % BUN 27 H (7-17) mg/dL Creatinine 5.02 H (0.52-1.04) mg/dL Phosphorus 5.2 H (2.5-4.5) mg/dL Tot Complement (CH50) >98 H (42 - 95) U/mL Assessment and Plan Assessment: Acute renal failure likely requiring HD -S/P HD X 2 days #2 of hemodialysis -Nephrology recommendations -Avoid additional nephrotoxic agents -Strict I's and O's -Repeat basic metabolic profile in a.m. -Workup currently pending -Renal ultrasound without evidence of hydronephrosis + Bence Lowe protein -Concern for multiple myeloma, + free lambda light chains and proteinuria of 1050 - D/W Dr. Munguia and would proceed with renal biopsy unless hematology feels that bone marrow is needed - D/W oncology [employer] and will continue with work-up and make biopsy recommendations. History of lap band procedure -Status post removal of fluid from well Resolved: Acute pancreatitis, resolved Hyperkalemia Non-anion gap metabolic acidosis DVT prophylaxis: Heparin Discussed with: Patient, nursing, HD nurse Anticipated discharge: 2-[address]: home A total of 25 minutes was spent on the care of this complex patient more than 50% of the time was spent in counseling and care coordination.
[2018-06-07] MEDS: ONDANSETRON 4 MG/2 ML VIAL IVP PRN (17:37)
--- NOTE | 2018-06-07 19:11 | P.CONS ---
<Aspen Cope - Last Filed: 06/07/18 18:55> History of Present Illness - Reason for Consult Consult date: 06/07/18 abnormal labs suggestive of a multiple myeloma, acute renal failure Requesting physician: Steffi Melissa - Chief Complaint Abdominal pain - History of Present Illness Mr. venegas is a very pleasant 57-year-old female patient of primary care physician Dr. Saavedra who was in her normal state of health until the 12th of this month. Patient had a severe headache on the that brought her to the emergency department. Patient had a rather extensive workup including head CT, neck and facial x-rays, echocardiogram, troponins, CBC, CMP all of which were nondiagnostic. Patient was treated for sinusitis and sent home. About 3 days after that episode patient started having abdominal pain, she states "just didn't feel good" she did request to have her lap band fluid decreased, which s he did have done, this provided only temporary relief. The pain came back in progressed, including the entire abdomen, patient motion in left to right, also some mid back pain, associated with poor appetite, nausea, denied vomiting, dizziness, vision changes, neurological type deficits, unilateral weakness, difficulty in breathing, palpitations, her abdomen is currently uncomfortable, she denied dysuria, hematuria, acute changes in her urine output, diarrhea, constipation, bleeding, she is positive for bilateral lower extremity swelling the last several days. On this admission patient was found to have severe renal failure, BUN 56 and creatinine 9.75 on admission, patient has had a temporary dialysis catheter placed, she is status post 2 dialysis sessions with improvement in her creatinine to 5.02 today. Nephrology did order extensive workup, patient's urine immunofixation was positive for a lambda Bence Lowe protein, protein electrophoresis shows a lambda paraproteinemia of 0.17 g/dL. Review of Systems 14 point review of systems is as stated in HPI Past Medical History Additional Past Medical History / Comment(s): Blood clot in Left eye (origin unknown)...blood work/dx tests such as carotid u/s performed to determine etiology but remains unknown, History of Any Multi-Drug Resistant Organisms: None Reported Past Surgical History: Bariatric Surgery, Orthopedic Surgery, Tonsillectomy Additional Past Surgical History / Comment(s): Right knee meniscus repair (Feb 2016), Bariatric Lap band May 2009, bilateral cataract surgery (November 2013), Tonsillectomy 1960's, lin carpal tunnel Past Anesthesia/Blood Transfusion Reactions: No Reported Reaction Additional Past Anesthesia/Blood Transfusion Reaction / Comm: No hx of blood transfusion Past Psychological History: No Psychological Hx Reported Smoking Status: Never smoker Past Alcohol Use History: None Reported Past Drug Use History: None Reported - Past Family History Father Family Medical History: Unable to Obtain Additional Family Medical History / Comment(s): does not know who her biologic father is Mother Additional Family Medical History / Comment(s): no hx of cancer or heart disease. Reports no family hx of cancer or heart disease Medications and Allergies Home Medications Medication Instructions Recorded Confirmed Type Aspirin [Adult Low Dose Aspirin EC] 81 mg PO DAILY 03/08/16 06/03/18 History Allergies Allergy/AdvReac Type Severity Reaction Status Date / Time No Known Allergies Allergy Verified 06/03/18 08:00 Physical Exam Vitals: Vital Signs Temp Pulse Resp BP Pulse Ox 06/07/18 15:48 98.4 F 94 16 154/84 97 06/07/18 07:49 98.0 F 98 159/90 97 06/07/18 01:09 98.4 F 98 18 148/80 97 06/06/18 19:23 98.9 F 94 16 150/90 97 Intake and Output 06/07/18 06/07/18 06/07/18 06:59 14:59 22:59 Intake Total 560 240 Output Total 300 Balance 560 240 -300 Intake: Intake, IV Titration 560 Amount Sodium Chloride 0.9% 1, 560 000 ml @ 80 mls/hr IV . [id number] [facility] Rx#:[id number] Oral 240 Output: Urine 300 Other: # Voids 2 - Constitutional General appearance: average body habitus, cooperative, mild distress - EENT Eyes: anicteric sclerae, EOMI ENT: hearing grossly normal, normal oropharynx - Neck Left supraclavicular fullness, no palpable cervical, supraclavicular or axillary adenopathy, no inguinal adenopathy palpated in the left groin, right groin not palpated due to dialysis catheterization - Respiratory Respiratory: bilateral: CTA - Cardiovascular Rhythm: regular Heart sounds: normal: S1, S2 Abnormal Heart Sounds: no systolic murmur, no diastolic murmur, no rub, no S3 Gallop, no S4 Gallop, no click, no other leg Peripheral Edema: bilateral: Trace - Gastrointestinal General gastrointestinal: no absent bowel sounds, no decreased bowel sounds, no distended, no hepatomegaly, no hyperactive bowel sounds, normal bowel sounds, no organomegaly, no rigid, no scaphoid, soft, no splenomegaly, tenderness, no umbilical hernia, no ventral hernia - Neurologic Neurologic: CNII-XII intact - Musculoskeletal Musculoskeletal: strength equal bilaterally - Psychiatric Psychiatric: A&O x's 3, appropriate affect, intact judgment & insight Results CBC & Chem 7: 06/07/18 06:48 06/07/18 06:48 Labs: Abnormal Lab Results - Last 24 Hours (Table) 06/06/18 06/07/18 06/07/18 Range/Units 07:24 06:48 06:48 RBC 3.78 L (3.80-5.40) m/uL Hgb 10.5 L (11.4-16.0) gm/dL Hct 32.4 L (34.0-46.0) % BUN 27 H (7-17) mg/dL Creatinine 5.02 H (0.52-1.04) mg/dL Phosphorus 5.2 H (2.5-4.5) mg/dL Tot Complement (CH50) >98 H (42 - 95) U/mL CT scan - abdomen: report reviewed CT Scan - head: report reviewed CT scan - pelvis: report reviewed Assessment and Plan (1) Acute renal failure (ARF) Current Visit: Yes Status: Acute Priority: High Code(s): N17.9 - ACUTE KIDNEY FAILURE, UNSPECIFIED SNOMED Code(s): 42939737 (2) Bence Lowe proteinuria Current Visit: Yes Status: Acute Priority: High Code(s): R80.3 - BENCE LEE CHAD PROTEINURIA SNOMED Code(s): 962008641 (3) Abdominal pain Current Visit: Yes Status: Acute Priority: High Code(s): R10.9 - UNSPECIFIED ABDOMINAL PAIN SNOMED Code(s): 61448986 Plan: Pt admitted with ARF (7 days from her last CMP that showed normal kidney function) Case discussed with Attending [facility] Physician. Chart and current/previous labs reviewed with Dr. Mary Hernandez discussed case with Nephrology. Discussed suspicions for myeloma with patient and her family. Discussed the need for bone marrow biopsy and aspirate, reviewed the procedure. Patient is agreeable to proceed. Plan is for bone marrow biopsy and aspirate tomorrow. Patient is only mildly anemic, no acute intervention May consider bone survey to evaluate for any myeloma-type lesions. Calcium is not elevated, no bisphosphonate therapy. Nephrology following, continue dialysis per their recommendations. We will follow up with Nephrology tomorrow . <Mary,Pb - Last Filed: 06/11/18 01:16> Physical Exam Vitals: Vital Signs Temp Pulse Resp BP BP Pulse Ox 06/10/18 23:47 98.5 F 87 16 152/80 94 L 06/10/18 14:52 98.2 F 90 14 138/81 99 06/10/18 07:01 98.2 F 84 18 163/95 98 06/10/18 07:00 97.9 F 82 16 167/100 97 06/10/18 01:17 98.8 F 102 H 18 133/85 98 Intake and Output 06/10/18 06/10/18 06/11/18 14:59 22:59 06:59 Intake Total 536 596 Output Total 1300 Balance -764 596 Intake: Oral 236 596 Hemodialysis 300 Output: Hemodialysis 1300 Other: Voiding Method Toilet Toilet # Voids 1 2 # Bowel Movements 1 Results CBC & Chem 7: 06/07/18 06:48 06/10/18 08:00 Labs: Abnormal Lab Results - Last 24 Hours (Table) 06/10/18 Range/Units 08:00 Sodium 136 L (137-145) mmol/L Potassium 3.4 L (3.5-5.1) mmol/L Creatinine 2.04 H (0.52-1.04) mg/dL Assessment and Plan (1) Monoclonal gammopathies Current Visit: Yes Status: Acute Code(s): D47.2 - MONOCLONAL GAMMOPATHY SNOMED Code(s): 505375525 (2) Renal failure Current Visit: Yes Status: Acute Code(s): N19 - UNSPECIFIED KIDNEY FAILURE SNOMED Code(s): 41615203 Plan: Pt examined and labs evaluated. Lambda light chain myeloma suspected, with ARF felt to be secondary to same. Plan for bone marrow. procedure d/w pt and family in detail Case d/w Nephrology in detail. Possible renal biopsy
[2018-06-08] MEDS: HEPARIN SODIUM,PORCINE 5,000 UNIT/ML 1 ML VIAL SQ SCH ×4 (01:32→18:37)
[2018-06-08 08:08] LABS: Calcium 8.5 mg/dL (8.4-10.2); Potassium 4.3 mmol/L (3.5-5.1); Uric Acid 6.1 mg/dL (3.7-7.4)
--- NOTE | 2018-06-08 11:02 | XR ---
EXAMINATION TYPE: XR bone survey complete DATE OF EXAM: 06/08/2018 COMPARISON: NONE HISTORY: Workup for multiple myeloma. Evaluate for lytic lesions. BONY CALVARIUM : 2 views of the bony calvarium demonstrate few areas of lucency however these appear to represent prominent arachnoid granulations on the CT brain of 05/26/2018. SPINE: Two views of the cervical, thoracic and lumbar spines are submitted. There is degenerative di sc disease of the cervical spine overall mild in degree and most pronounced at C6-C7. No lytic lesion is seen. Gastric lap band and postsurgical changes of the gastroesophageal junction are seen on the frontal view of the thoracic spine. There is grade 1 anterolisthesis of L4 on L5 likely is secondary to facet arthropathy. No lytic lesions of the spine are appreciated. Mild degenerative changes of the thoracic spine are seen. PELVIS: Single view of the pelvis demonstrates. Bowel overlies the pelvis slightly limiting evaluati on for lytic lesion. Lower sacrum is nondiagnostic. UPPER EXTREMITIES: Two views of the upper extremities. No lytic lesions. LOWER EXTREMITIES: 2 views of the lower extremities. There is some osseous demineralization of the f emurs and advanced arthropathy of the knees. Subtle lucency of the left femoral neck and right femora l head are seen. However these do not persist history lesions on the pelvic AP view. CHEST: Diffuse interstitial prominence is seen. Subsegmental atelectasis is present at the lung bases , linear in morphology. IMPRESSION: There are few areas of lucency in the skull and proximal femurs however the skull areas o f lucency appear to represent prominent arachnoid granulations on the CT of 05/26/2018 and proximal fe moral lesions do not persist on the AP pelvis view. No definitive lytic lesions.
--- NOTE | 2018-06-08 11:48 | P.PN ---
Subjective Patient is seen in follow-up for acute kidney injury. Her baseline creatinine from earlier this month was near 1. This admission it's been staying above 9. Urine output is good. She was started on hemodialysis on June 05. Lambda light chains are noted to be significantly elevated and there is high suspicion for multiple myeloma. She scheduled to undergo bone marrow biopsy today. Denies chest pain or shortness of breath. Vital signs are stable. General: The patient appeared well nourished and normally developed. HEENT: Head exam is unremarkable. Neck is without jugular venous distension. LUNGS: Lungs are clear to auscultation and percussion. Breath sounds decreased. HEART: Rate and Rhythm are regular. First and second heart sounds normal. No murmurs, rubs or gallops. ABDOMEN: Abdominal exam reveals normal bowel sounds. Non-tender and non- distended. No evidence of peritonitis. EXTREMITITES: Trace edema. Objective - Vital Signs Vital signs: Vital Signs Temp 97.9 F 06/08/18 07:24 Pulse 101 H 06/08/18 07:24 Resp 16 06/08/18 07:24 BP 161/91 06/08/18 07:24 Pulse Ox 95 06/08/18 07:24 Intake & Output 06/07/18 06/08/18 06/08/18 18:59 06:59 18:59 Intake Total 240 500 550 Output Total 300 Balance -60 500 550 Intake: Intake, IV Titration 400 Amount Sodium Chloride 0.9% 1, 400 000 ml @ 80 mls/hr IV . [id number] [facility] Rx#:[id number] Oral 240 500 150 Output: Urine 300 Other: # Voids 2 2 - Labs CBC & Chem 7: 06/07/18 06:48 06/08/18 07:15 Labs: Abnormal Lab Results - Last 24 Hours (Table) 06/08/18 Range/Units 07:15 Chloride 108 H (98-107) mmol/L BUN 27 H (7-17) mg/dL Creatinine 5.17 H (0.52-1.04) mg/dL Assessment and Plan Plan: Assessment: 1. Acute kidney injury. She does have 1 g of proteinuria and lambda light chains are significantly elevated. 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 No hydronephrosis noted on CAT scan. Baseline creatinine near 1. Creatinine was above 9 with no improvement despite IV hydration. She was subsequently started on hemodialysis on June 05. Urine eosinophils negative. 2. Acute pancreatitis. Surgery following. 3. Hyperkalemia secondary to acute kidney injury and metabolic acidosis. Better. 4. Metabolic acidosis secondary to acute kidney injury and IV fluids. Better. Plan: Maintain normal saline at 50 mL an hour. Hemodialysis today. Schedule kidney biopsy to confirm diagnosis of cast nephropathy and to rule out any other forms of GN. Scheduled for bone marrow biopsy today. Patient will need a permacath prior to discharge. advertising operations manager to help facilitate outpatient hemodialysis. Plan discussed with oncology as well as the patient and her family.
[2018-06-08] MEDS ORDERED: PROPOFOL 10 MG/ML 20 ML VIAL IV ONE (12:06)
[2018-06-08] MEDS ORDERED: fentaNYL (PF) 50 MCG/ML 2 ML AMP ONE (12:06)
[2018-06-08] MEDS ORDERED: LIDOCAINE 1% INJ 10MG/ML (20 ML MDV) ONE (12:06)
[2018-06-08] MEDS ORDERED: IV FLUID CONTINUATION 300 ML IV ONE (12:10)
[2018-06-08] MEDS ORDERED: SODIUM CHLORIDE 0.9% 500 ML IV ONE (12:30)
--- NOTE | 2018-06-08 12:31 | P.PCN ---
Date of Procedure: 06/08/18 Preoperative Diagnosis: Suspected myeloma Postoperative Diagnosis: Same Procedure(s) Performed: Bone marrow aspiration biopsy Anesthesia: MAC Surgeon: Pb Hernandez Office Rental Clerk #1: Stated None Estimated Blood Loss (ml): 1 Pathology: other Condition: stable Disposition: floor Indications for Procedure: Acute renal failure, markedly elevated lambda light chain. Suspected myeloma Operative Findings: Adequate samples Description of Procedure: The procedure was explained in detail to the patient on the floor. Informed consent was obtained before. She was brought to the outpatient endoscopy suite, and placed in the left lateral decubitus position. The area over both posterior iliac crest was cleaned and prepped with chlorhexidine and sterile draping. I will sedation was then initiated. Local cc of was administered with Xylocaine to the right posterior hilar crest. A Jamshidi needle was then inserted and bone marrow aspirate and biopsy obtained. On withdrawal of the needle hemostasis was easily achieved. Blood loss was minimal recovery from sedation was satisfactory. He appeared to have tolerated the procedure well without any obvious immediate complications.
[2018-06-08 14:04] LABS: INR 1.1 (<1.2); Prothrombin Time 11.9 sec (9.0-12.0)
--- NOTE | 2018-06-08 15:15 | P.PN ---
Subjective Progress Note Date: 06/08/18 Patient was seen and examined at the bedside. She continues to have lower extremity edema along with some edema of the hands though notes that her breathing is improved. She otherwise denied any active complaints including fever, chills, chest pain, or cough. She further denied abdominal pain, nausea, or vomiting. Objective - Vital Signs Vital signs: Vital Signs Temp 97.9 F 06/08/18 07:24 Pulse 101 H 06/08/18 08:00 Resp 16 06/08/18 08:00 BP 161/91 06/08/18 07:24 Pulse Ox 95 06/08/18 07:24 Intake & Output 06/07/18 06/08/18 06/08/18 18:59 06:59 18:59 Intake Total 240 500 850 Output Total 300 Balance -60 500 850 Intake: IV 300 Intake, IV Titration 400 Amount Sodium Chloride 0.9% 1, 400 000 ml @ 80 mls/hr IV . [id number] [facility] Rx#:[id number] Oral 240 500 150 Output: Urine 300 Other: Voiding Method Toilet # Voids 2 2 - Exam General: Non-toxic, in no acute distress, appears stated age, normal weight HEENT: NC/AT, anicteric sclerae, moist conjunctiva, no lid-lag, PERRLA Cardiovascular: S1/S2 wnl, no murmurs, rubs, or gallops Lungs: Clear to auscultation, normal respiratory effort, no accessory muscle use Abdominal: Soft, non-tender, non-distended, no guarding, rebound, or rigidity Skin: Warm, dry Extremities: 1+ lower extremity edema bilaterally, no contractures Psychiatric: Alert and oriented to person, place and time, appropriate affect Neuro: CN II-XII grossly intact, Strength 5/5 in all 4 extremities, Speech intact, Sensation to light touch grossly intact throughout - Labs CBC & Chem 7: 06/07/18 06:48 06/08/18 07:15 Labs: Abnormal Lab Results - Last 24 Hours (Table) 06/08/18 Range/Units 07:15 Chloride 108 H (98-107) mmol/L BUN 27 H (7-17) mg/dL Creatinine 5.17 H (0.52-1.04) mg/dL Assessment and Plan Plan: Acute renal failure, lambda free chains significantly elevated, high suspicion of multiple myeloma as per nephrology and hematology -Status post bone marrow biopsy earlier today -Status post hemodialysis x 2 -Monitor BMP -Hematology and nephrology recommendations appreciated -Planned for renal biopsy Hyperkalemia -Resolved Acute pancreatitis -Resolved DVT prophylaxis -Heparin Discussed with: Patient Anticipated discharge date: 06/11/[address]: Home A total of 30 minutes was spent on the care of this complex patient more than 50% of the time was spent in counseling and care coordination.
--- NOTE | 2018-06-08 16:40 | P.PCN ---
Date of Procedure: 06/08/18 Preoperative Diagnosis: renal failure Postoperative Diagnosis: renal failure Procedure(s) Performed: ct guide right renal biopsy Anesthesia: local Estimated Blood Loss (ml): 50 Pathology: other (3 core 18 gauge)
[2018-06-08] MEDS ORDERED: BISACODYL 5 MG TABLET.DR PO STA (17:54)
--- NOTE | 2018-06-08 20:49 | P.PN ---
Subjective Progress Note Date: 06/08/18 The patient reports some persistent fatigue, and decreased appetite. She denies any new areas of bone pain, unusual bruising or bleeding, or change in mental status. No fever or chills. Objective - Vital Signs Vital signs: Vital Signs Temp 97.4 F L 06/08/18 19:35 Pulse 97 06/08/18 19:35 Resp 12 06/08/18 19:35 BP 176/93 06/08/18 19:35 Pulse Ox 96 06/08/18 19:30 Intake & Output 06/08/18 06/08/18 06/09/18 06:59 18:59 06:59 Intake Total 500 850 Output Total 1100 Balance 500 -250 Intake: IV 300 Intake, IV Titration 400 Amount Sodium Chloride 0.9% 1, 400 000 ml @ 50 mls/hr IV . Q20H [facility] Rx#:[id number] Oral 500 150 Output: Urine 1100 Other: Voiding Method Toilet # Voids 1 - Constitutional General appearance: Present: no acute distress - EENT Eyes: Present: EOMI ENT: Present: hearing grossly normal, normal oropharynx - Respiratory Respiratory: bilateral: CTA - Cardiovascular Rhythm: regular Heart sounds: normal: S1, S2 - Gastrointestinal General gastrointestinal: Present: normal bowel sounds, soft - Integumentary Integumentary: Present: normal - Neurologic Neurologic: Present: CNII-XII intact - Musculoskeletal Musculoskeletal: Present: strength equal bilaterally - Psychiatric Psychiatric: Present: A&O x's 3, appropriate affect - Labs CBC & Chem 7: 06/07/18 06:48 06/08/18 07:15 Labs: Abnormal Lab Results - Last 24 Hours (Table) 06/08/18 Range/Units 07:15 Chloride 108 H (98-107) mmol/L BUN 27 H (7-17) mg/dL Creatinine 5.17 H (0.52-1.04) mg/dL Assessment and Plan (1) Monoclonal gammopathies Narrative/Plan: The patient has presented with acute renal failure, with labs showing isolated, marked elevation of lambda light chain. The clinical implications of this, and pathophysiology were discussed in detail with the patient and her hus band. They were advised that this represents a monoclonal process, and given the level of the lambda light chain, as well as her presentation with acute renal failure with no other definite cause, overt multiple myeloma is most likely. The patient will does need additional workup for confirmation of diagnosis. She'll have a bone marrow later today. The procedure has been explained in detail to her. After the bone marrow, given the clinical situation, the patient will be started on high-dose steroids with bolus Decadron 40 mg daily for 4 days. More specific myeloma regimens will be started once the diagnosis is confirmed on bone marrow. Current Visit: Yes Status: Acute Code(s): D47.2 - MONOCLONAL GAMMOPATHY SNOMED Code(s): 680527393 (2) Renal failure Narrative/Plan: At this time, given the clinical presentation, light chain related damage is highly suspected. The patient had hemodialysis on 06/06/18, and creatinine has been stable since. She continues to make urine. The case was discussed in detail with nephrology. The patient will continue hemodialysis as needed for now. The role of plasmapheresis in this situation w as discussed. While there may be benefit, overall evidence for benefit of plasmapheresis over and above that of specific plasma cell dyscrasia treatment to reduce monoclonal protein level, is quite weak. Therefore at this time the plan is to continue to follow the patient closely, especially now that she'll be started on high-dose steroids which will hopefully reduce light chain level or at least retard further progression in the short- term. They've decided to proceed with renal biopsy. On detailed discussion this is felt to be reasonable. If the patient cannot found to have marked invo lvement in the bone marrow, but does have light chain deposition in the kidneys, then the latter would provide indication to treat as for overt multiple myeloma Current Visit: Yes Status: Acute Code(s): N19 - UNSPECIFIED KIDNEY FAILURE SNOMED Code(s): 56533087
[2018-06-08] MEDS: SODIUM CHLORIDE 0.9% 1,000 ML IV SCH ×2 (21:41→21:59)
[2018-06-08] MEDS: ACETAMINOPHEN TAB 325 MG TAB PO PRN (21:46)
[2018-06-08] MEDS: PANTOPRAZOLE 40 MG TABLET PO SCH (21:46)
[2018-06-08] MEDS: WATER IV SCH ×2 (23:08)
[2018-06-08] MEDS: DEXAMETHASONE SOD PHOSPHATE IV SCH ×2 (23:08)
[2018-06-08] MEDS: DEXTROSE 5% IV SCH ×2 (23:08)
[2018-06-09] MEDS: PANTOPRAZOLE 40 MG TABLET PO SCH (07:36)
[2018-06-09] MEDS: HEPARIN SODIUM,PORCINE 5,000 UNIT/ML 1 ML VIAL SQ SCH ×3 (07:36→23:03)
[2018-06-09] MEDS: SODIUM CHLORIDE 0.9% 1,000 ML IV SCH (07:39)
--- NOTE | 2018-06-09 08:01 | CT ---
DATE OF EXAM: 06/08/2018 COMPARISON: NONE CT DLP: 1161 mGycm HISTORY: Renal failure PROCEDURE: Maximal barrier technique was utilized. After informed consent, the skin overlying a suit able path to the right kidney was localized using CT guidance, the skin was prepped and draped. Lido maya was used for local anesthesia. A skin sandor made with a scalpel. Using CT guidance, a 17-gauge needle was advanced into in position at the lateral and inferior cortex of the right kidney where co axial placement of an 18-gauge needle was used and core biopsy obtained. Three passes made in total. Hemostasis was achieved. There was no immediate complication and patient remained in stable condit ion. Specimen submitted to Pathology. IMPRESSION: Status post CT guided core biopsy of left renal cortex, pathology pending. This procedur e performed by the undersigned.
[2018-06-09] MEDS ORDERED: IV FLUID CONTINUATION 1,000 ML IV ONE (08:22)
[2018-06-09] MEDS ORDERED: fentaNYL (PF) 50 MCG/ML 2 ML AMP ONE (08:25)
[2018-06-09] MEDS: fentaNYL (PF) 50 MCG/ML 2 ML AMP IV ONE ×2 (08:30→08:47)
[2018-06-09] MEDS ORDERED: MIDAZOLAM (PF) 2 MG/2 ML VIAL IVP ONE (08:30)
[2018-06-09] MEDS: LIDOCAINE 1% INJ 10MG/ML (20 ML MDV) SQ ONE ×2 (08:32→08:39)
[2018-06-09] MEDS ORDERED: HEPARIN SODIUM 1,000 UN/ML (10ML VL) ONE (08:46)
[2018-06-09] MEDS ORDERED: LIDOCAINE 1% INJ 10MG/ML (20 ML MDV) ONE (08:52)
[2018-06-09] MEDS ORDERED: LIDOCAINE 1% INJ 10MG/ML (20 ML MDV) SQ ONE (08:53)
[2018-06-09] MEDS ORDERED: LACTULOSE 20 GM/30 ML CUP PO PRN (09:43)
--- NOTE | 2018-06-09 09:45 | P.PN ---
Subjective Patient is seen in follow-up for acute kidney injury. Her baseline creatinine from earlier this month was near 1. This admission it's been staying above 9. Urine output is good. She was started on hemodialysis on June 05. Lambda light chains are noted to be significantly elevated and there is high suspicion for multiple myeloma. She underwent bone marrow as well as kidney biopsy yesterday. Denies chest pain or shortness of breath. She had a permacath placed this morning. Groin catheter was removed. Vital signs are stable. General: The patient appeared well nourished and normally developed. HEENT: Head exam is unremarkable. Neck is without jugular venous distension. LUNGS: Lungs are clear to auscultation and percussion. Breath sounds decreased. HEART: Rate and Rhythm are regular. First and second heart sounds normal. No murmurs, rubs or gallops. ABDOMEN: Abdominal exam reveals normal bowel sounds. Non-tender and non-disten ded. No evidence of peritonitis. EXTREMITITES: Trace edema. Objective - Vital Signs Vital signs: Vital Signs Temp 97.7 F 06/09/18 08:08 Pulse 116 H 06/09/18 08:08 Resp 16 06/09/18 08:08 BP 162/83 06/09/18 08:08 Pulse Ox 94 L 06/09/18 08:08 Intake & Output 06/08/18 06/09/18 06/09/18 18:59 06:59 18:59 Intake Total 850 250 100 Output Total 1100 1000 Balance -250 -750 100 Intake: IV 300 100 Intake, IV Titration 400 150 Amount Sodium Chloride 0.9% 1, 400 150 000 ml @ 50 mls/hr IV . Q20H [facility] Rx#:[id number] Oral 150 100 Output: Urine 1100 1000 Other: Voiding Method Toilet Toilet Toilet # Voids 1 0 - Labs CBC & Chem 7: 06/07/18 06:48 06/08/18 07:15 Assessment and Plan Plan: Assessment: 1. Acute kidney injury. She does have 1 g of proteinuria and lambda light chains are significantly elevated. There is high suspicion for cast n ephropathy. No hydronephrosis noted on CAT scan. Baseline creatinine near 1. Creatinine was above 9 with no improvement despite IV hydration. She was subsequently started on hemodialysis on June 05. Urine eosinophils negative. 2. Acute pancreatitis. Surgery following. 3. Hyperkalemia secondary to acute kidney injury and metabolic acidosis. Better. 4. Metabolic acidosis secondary to acute kidney injury and IV fluids. 5. Constipation. Plan: Hep-Lock IV fluids. Hemodialysis tomorrow. She will be maintained on a Tuesday schedule. Bone marrow and kidney biopsy results pending. fast food assistant restaurant manager to help facilitate outpatient hemodialysis. Add lactulose for constipation.
--- NOTE | 2018-06-09 09:58 | IR ---
Fluoroscopy HISTORY: Pain 60 seconds fluoroscopy time supplied to the referring clinician. 282 intraoperative C-arm images doc ument the procedure. See dictated report from vascular surgery.
[2018-06-09 10:11] LABS: Calcium 8.5 mg/dL (8.4-10.2); Potassium 4.2 mmol/L (3.5-5.1)
--- NOTE | 2018-06-09 11:24 | P.PN ---
Subjective Progress Note Date: 06/09/18 The patient was seen and examined at the bedside. She underwent a bone marrow and kidney biopsy yesterday and had a permacath placed this morning. She was in good spirits and denied any active complaints. She continues to have bilateral lower extremity edema but otherwise denied chest pain, shortness of breath, fever, chills. She also denied abdominal pain, nausea, vomiting. Objective - Vital Signs Vital signs: Vital Signs Temp 97.7 F 06/09/18 08:08 Pulse 116 H 06/09/18 08:08 Resp 16 06/09/18 08:08 BP 162/83 06/09/18 08:08 Pulse Ox 94 L 06/09/18 08:08 Intake & Output 06/08/18 06/09/18 06/09/18 18:59 06:59 18:59 Intake Total 850 250 100 Output Total 1100 1000 Balance -250 -750 100 Intake: IV 300 100 Intake, IV Titration 400 150 Amount Sodium Chloride 0.9% 1, 400 150 000 ml @ 50 mls/hr IV . Q20H [facility] Rx#:[id number] Oral 150 100 Output: Urine 1100 1000 Other: Voiding Method Toilet Toilet Toilet # Voids 1 0 - Exam General: Non-toxic, in no acute distress, appears stated age, normal weight HEENT: NC/AT, anicteric sclerae, moist conjunctiva, no lid-lag, PERRLA Cardiovascular: S1/S2 wnl, no murmurs, rubs, or gallops Lungs: Clear to auscultation, normal respiratory effort, no accessory muscle use Abdominal: Soft, non-tender, non-distended, no guarding, rebound, or rigidity, right permacath with overlying dressing clean, in place Skin: Warm, dry Extremities: 1+ lower extremity edema bilaterally, no contractures Psychiatric: Alert and oriented to person, place and time, appropriate affect Neuro: CN II-XII grossly intact, Strength 5/5 in all 4 extremities, Speech intact, Sensation to light touch grossly intact throughout - Labs CBC & Chem 7: 06/07/18 06:48 06/09/18 09:38 Labs: Abnormal Lab Results - Last 24 Hours (Table) 06/09/18 Range/Units 09:38 Creatinine 3.12 H (0.52-1.04) mg/dL Glucose 114 H (74-99) mg/dL Assessment and Plan Plan: Acute renal failure, lambda free chains significantly elevated, high suspicion of multiple myeloma as per nephrology and hematology -Status post bone marrow biopsy and kidney biopsy -Status post hemodialysis x 3 -Monitor BMP -Hematology and nephrology recommendations appreciated. The patient will be established for outpatient hemodialysis. -The patient was also started on Decadron yesterday evening by hematology Hyperkalemia -Resolved Acute pancreatitis -Resolved DVT prophylaxis -Heparin Discussed with: Patient Anticipated discharge date: 06/12/[address]: Home A total of 30 minutes was spent on the care of this complex patient more than 50% of the time was spent in counseling and care coordination.
--- NOTE | 2018-06-09 12:00 | XR ---
EXAMINATION TYPE: XR chest 1V portable DATE OF EXAM: 06/09/2018 HISTORY: Dialysis catheter placement COMPARISON: 05/26/2018 TECHNIQUE: Single view of the chest is submitted. FINDINGS: Right subclavian dialysis catheter is noted to be in place with its distal tip overlying the SVC. No evidence for pneumothorax. Demonstrated are scattered senescent parenchymal change. There is no evidence for focal infiltrate. There is cardiomegaly with pulmonary venous congestion and small effusions. Hilar and mediastinal structures are within normal limits. Degenerative changes are seen of the dorsal spine. IMPRESSION: 1. CHF. 2. Right subclavian dialysis catheter as noted.
--- NOTE | 2018-06-09 15:26 | PCN ---
PROCEDURE NOTE PREOPERATIVE DIAGNOSIS: Acute renal failure. PROCEDURE: 1. Ultrasound-guided 19 cm dialysis catheter placement in right internal jugular vein. 2. Removal of the temporary catheter from right femoral approach. DESCRIPTION OF PROCEDURE: The patient was brought to the cathode maker. Right side of the neck and chest was prepped and draped in usual sterile manner. Lidocaine 1% was infiltrated in the neck and chest area. Ultrasound-guided micropuncture was introduced into right internal jugular vein and 4 Nepalese dilator was advanced on top of the guidewire. After that, we created a tunnel, and through the tunnel we brought a 19 cm dialysis catheter. After that, the dilator was advanced under fluoroscopic control and then sheath was advanced on top of the guidewire. Through the sheath we introduced the dialysis catheter. Sheath was removed. Tip of the catheter in superior vena cava and atrium. Flushed with heparin saline and hep-locked. Incision was closed with Vicryl and nylon, dressing applied. Patient tolerated the procedure well. Then the left groin was prepped and stitches removed. Temporary dialysis catheter was removed. Pressure was held. Patient tolerated the procedure well. MMODL / IJN: [id number] /
--- NOTE | 2018-06-09 18:21 | P.PN ---
Subjective Progress Note Date: 06/09/18 The patient states that she feels much better today. She had dialysis last night. She denies any complaints at the bone marrow biopsy site Objective - Vital Signs Vital signs: Vital Signs Temp 98.7 F 06/09/18 14:44 Pulse 105 H 06/09/18 15:39 Resp 16 06/09/18 14:44 BP 148/90 06/09/18 14:44 Pulse Ox 95 06/09/18 15:39 Intake & Output 06/08/18 06/09/18 06/09/18 18:59 06:59 18:59 Intake Total 850 250 340 Output Total 1100 1000 350 Balance -250 -750 -10 Weight 77.428 kg Intake: IV 300 100 Intake, IV Titration 400 150 Amount Sodium Chloride 0.9% 1, 400 150 000 ml @ 50 mls/hr IV . Q20H [facility] Rx#:[id number] Oral 150 100 240 Output: Urine 1100 1000 350 Other: Voiding Method Toilet Toilet Toilet # Voids 1 0 1 # Bowel Movements 0 - Constitutional General appearance: Present: no acute distress - EENT Eyes: Present: EOMI ENT: Present: hearing grossly normal, normal oropharynx - Respiratory Respiratory: bilateral: CTA - Cardiovascular Rhythm: regular Heart sounds: normal: S1, S2 - Gastrointestinal General gastrointestinal: Present: normal bowel sounds, soft - Neurologic Neurologic: Present: CNII-XII intact - Musculoskeletal Musculoskeletal: Present: generalized weakness, strength equal bilaterally - Psychiatric Psychiatric: Present: A&O x's 3, appropriate affect - Labs CBC & Chem 7: 06/07/18 06:48 06/09/18 09:38 Labs: Abnormal Lab Results - Last 24 Hours (Table) 06/09/18 Range/Units 09:38 Creatinine 3.12 H (0.52-1.04) mg/dL Glucose 114 H (74-99) mg/dL Assessment and Plan (1) Monoclonal gammopathies Narrative/Plan: Based on her clinical presentation, as stated, overworked myeloma is suspected. The patient is status was bone marrow aspiration biopsy and results are pending. Bone survey has not shown any definite lytic lesions. The patient has been started on bolus Decadron at 40 mg daily for 4 days. Await results of the bone marrow testing. Current Visit: Yes Status: Acute Code(s): D47.2 - MONOCLONAL GAMMOPATHY SNOMED Code(s): 830905337 (2) Renal failure Narrative/Plan: At this time light chain deposition related damage is a primary etiology. The patient had dialysis yesterday, and creatinine is down in 3 range today. However due to the dialysis, this value is not specific. Renal biopsy was performed which the patient tolerated well. Await results from the same. Significance of renal biopsy was discussed with the patient and her family. They were advised, that if the bone marrow showed plasma cells below the threshold of malignancy (10%), or in the asymptomatic/smoldering range, the patient would still be treated for myeloma, if she was found to have light chain related damage in the kidney. It would also help to rule out other etiologies such as autoimmune, which can sometimes occur in association with immune-related malignancies. Defer to nephrology for ongoing management. Current Visit: Yes Status: Acute Code(s): N19 - UNSPECIFIED KIDNEY FAILURE SNOMED Code(s): 88690672
[2018-06-09] MEDS: DEXAMETHASONE SOD PHOSPHATE IV SCH ×2 (20:14)
[2018-06-09] MEDS: WATER IV SCH ×2 (20:14)
[2018-06-09] MEDS: DEXTROSE 5% IV SCH ×2 (20:14)
[2018-06-09] MEDS: ACETAMINOPHEN TAB 325 MG TAB PO PRN (21:01)
[2018-06-10] MEDS: ACETAMINOPHEN TAB 325 MG TAB PO PRN ×2 (06:23→14:54)
[2018-06-10 08:29] LABS: Calcium 8.5 mg/dL (8.4-10.2); Potassium 3.4 mmol/L (3.5-5.1)
[2018-06-10] MEDS: HEPARIN SODIUM,PORCINE 5,000 UNIT/ML 1 ML VIAL SQ SCH ×2 (09:29→16:42)
[2018-06-10] MEDS: PANTOPRAZOLE 40 MG TABLET PO SCH (09:30)
--- NOTE | 2018-06-10 12:54 | P.PN ---
Subjective Progress Note Date: 06/10/18 Seen and examined for the follow-up of acute kidney injury on hemodialysis. Admits making good amount of urine. No nausea, vomiting or diarrhea. Workup showed IgG lambda. Awaiting renal and bone marrow biopsy results. Currently on steroids as per hematology. Objective - Vital Signs Vital signs: Vital Signs Temp 98.2 F 06/10/18 07:01 Pulse 84 06/10/18 07:01 Resp 18 06/10/18 07:01 BP 163/95 06/10/18 07:01 Pulse Ox 98 06/10/18 07:01 Intake & Output 06/09/18 06/10/18 06/10/18 18:59 06:59 18:59 Intake Total 340 300 Output Total 350 1300 Balance -10 -1000 Weight 77.428 kg Intake: IV 100 Oral 240 Hemodialysis 300 Output: Urine 350 Hemodialysis 1300 Other: Voiding Method Toilet Toilet # Voids 1 2 # Bowel Movements 0 2 - Exam Sitting in the bed no acute distress S1-S2 heard Lungs clear Right jugular permacath Edema - Labs CBC & Chem 7: 06/07/18 06:48 06/10/18 08:00 Labs: Abnormal Lab Results - Last 24 Hours (Table) 06/10/18 Range/Units 08:00 Sodium 136 L (137-145) mmol/L Potassium 3.4 L (3.5-5.1) mmol/L Creatinine 2.04 H (0.52-1.04) mg/dL Assessment and Plan Assessment: #1 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 Currently dialysis dependent. #2 metabolic acidosis currently alkalotic #3 hypokalemia secondary to dialysis and possible recovery of renal function #4 pancreatitis Plan: #1 monitor renal functions closely, with good urine output and electrolyte changes monitor for renal recovery. #2 plan hemodialysis Tuesday based on the labs and renal function #3 awaiting renal biopsy for further treatment and plan #4 avoid nephrotoxic agents and hypotensive episodes. #5 appreciate oncology input
[2018-06-10] MEDS: DEXTROSE 5% IV SCH ×2 (12:59)
[2018-06-10] MEDS: WATER IV SCH ×2 (12:59)
[2018-06-10] MEDS: DEXAMETHASONE SOD PHOSPHATE IV SCH ×2 (12:59)
--- NOTE | 2018-06-10 17:30 | P.PN ---
Subjective Progress Note Date: 06/10/18 Principal diagnosis: abdominal pain Patient is a 57-year-old female with a past medical history of blood clot in the left eye, perimenopausal symptoms, and LAP-BAND procedure who presented with complaints of abdominal pain. She been seen by Dr. Boudreaux as outpatient one day prior to presentation and had some fluid drained from her lap band port which gave her some abdominal pain relief however the symptoms gradually returned she came back to the emergency department. In the emergency department she was found have an elevated BUN at 56 and elevated creatinine at 9.76 along with elevated potassium at 6.4. Her lipase was elevated at 917 and white blood cell count was elevated at 11.3. Urinalysis showed trace blood, trace leukocyte esterase, 9 white blood cells with rare mucus and bacteria cells. CT abdomen and pelvis without contrast revealed mild cardiomegaly, no abnormality within the kidney bladder or ureter, no abnormal findings. Patient was subsequently admitted for further management of her acute renal failure. She was started on temporizing measures for her hyperkalemia was given a dose of Kayexalate. Nephrology was consulted. She was also made nothing by mouth secondary to possible pancreatitis with her elevated lipase. She was seen by GI who determined she could have mild pancreatitis however her elevated lipase could also be secondary to her acute renal failure. Her diet was advanced as her abdominal pain had improved. Initially the patient was managed conservatively with eliminating any nephrotoxic agents and IV fluids. Despite good urine output her creatinine remains 9 and she was started on dialysis on 06/05 after a temporary catheter was placed. Work up revealed elevated lambda with protein spike on electrophoresis with concern of myeloma. Patient seen and examined at bedside. Feeling better today, fluid lessening, PHELPS better, still with decreased appetite, no nausea or vomiting. Objective - Vital Signs Vital signs: Vital Signs Temp 98.2 F 06/10/18 14:52 Pulse 90 06/10/18 14:52 Resp 14 06/10/18 14:52 BP 138/81 06/10/18 14:52 Pulse Ox 99 06/10/18 14:52 Intake & Output 06/09/18 06/10/18 06/10/18 18:59 06:59 18:59 Intake Total 340 536 Output Total 350 1300 Balance Weight 77.428 kg Intake: IV 100 Oral 240 236 Hemodialysis 300 Output: Urine 350 Hemodialysis 1300 Other: Voiding Method Toilet Toilet # Voids 1 2 1 # Bowel Movements 0 2 - Exam General: Ill appearing, non toxic, no distress, appears at stated age Derm: Pallor, warm, dry Head: atraumatic, normocephalic, symmetric Eyes: EOMI, no lid lag, anicteric sclera Mouth: no lip lesion, mucus membranes moist Cardiovascular: S1S2 reg, no murmur, positive posterior tibial pulse bilateral, Lungs: CTA b/l bilateral, no rhonchi, no rales , no accessory muscle use Abdominal: soft, nontender to palpation, no guarding, no appreciable organomeg anita Ext: no gross muscle atrophy, 1+ non pitting edema, no contractures Neuro: CN II-XI grossly intact, no focal neuro deficits Psych: Alert, oriented, appropriate affect - Labs CBC & Chem 7: 06/07/18 06:48 06/10/18 08:00 Labs: Abnormal Lab Results - Last 24 Hours (Table) 06/10/18 Range/Units 08:00 Sodium 136 L (137-145) mmol/L Potassium 3.4 L (3.5-5.1) mmol/L Creatinine 2.04 H (0.52-1.04) mg/dL Assessment and Plan Assessment: Acute renal failure, requiring HD---- likely due to myeloma -Plan is for HD on Tuesday again, likely home on tuesday -Nephrology recommendations -Avoid additional nephrotoxic agents -Strict I's and O's -Repeat basic metabolic profile in a.m. -Workup currently pending -Renal ultrasound without evidence of hydronephrosis - renal biopsy pending Probable myeloma -Concern for multiple myeloma, + free lambda light chains and proteinuria of 1050 - Oncology recommendations appreciated - bone marrow pending History of lap band procedure -Status post removal of fluid from well Resolved: Acute pancreatitis, resolved Hyperkalemia Non-anion gap metabolic acidosis DVT prophylaxis: Heparin Discussed with: Patient, nursing Anticipated discharge: 2-[address]: home A total of 25 minutes was spent on the care of this complex patient more than 50% of the time was spent in counseling and care coordination.
[2018-06-11] MEDS: HEPARIN SODIUM,PORCINE 5,000 UNIT/ML 1 ML VIAL SQ SCH ×3 (00:43→16:55)
[2018-06-11 08:20] LABS: Calcium 9.1 mg/dL (8.4-10.2); Potassium 3.9 mmol/L (3.5-5.1)
[2018-06-11] MEDS ORDERED: CYCLOBENZAPRINE 5 MG TAB PO PRN (09:39)
--- NOTE | 2018-06-11 10:25 | P.PN ---
Subjective Progress Note Date: 06/11/18 Seen and examined for the follow-up of acute kidney injury on hemodialysis. Admits making good amount of urine. No nausea, vomiting or diarrhea. Workup showed IgG lambda. Awaiting renal and bone marrow biopsy results. Currently on steroids as per hematology. Objective - Vital Signs Vital signs: Vital Signs Temp 97.6 F 06/11/18 07:00 Pulse 61 06/11/18 07:00 Resp 16 06/11/18 07:00 BP 172/82 06/11/18 07:00 Pulse Ox 96 06/11/18 07:00 Intake & Output 06/10/18 06/11/18 06/11/18 18:59 06:59 18:59 Intake Total 1132 236 Output Total 1300 Balance -168 236 Intake: Oral 832 236 Hemodialysis 300 Output: Hemodialysis 1300 Other: Voiding Method Toilet Toilet # Voids 1 2 # Bowel Movements 1 - Exam Sitting in the bed no acute distress S1-S2 heard Lungs clear Right jugular permacath Edema - Labs CBC & Chem 7: 06/07/18 06:48 06/11/18 07:25 Labs: Abnormal Lab Results - Last 24 Hours (Table) 06/11/18 Range/Units 07:25 BUN 20 H (7-17) mg/dL Creatinine 2.88 H (0.52-1.04) mg/dL Assessment and Plan Assessment: #1 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 Currently dialysis dependent. #2 metabolic acidosis currently alkalotic #3 hypokalemia secondary to dialysis and possible recovery of renal function #4 pancreatitis #5 hypotension suspect steroid-induced. Plan: #1 monitor renal functions closely, with good urine output and electrolyte changes monitor for renal recovery. #2 plan hemodialysis Tuesday based on the labs and renal function #3 awaiting renal biopsy for further treatment and plan #4 avoid nephrotoxic agents and hypotensive episodes. #5 appreciate oncology input #6 add losartan for blood pressure control. Goal less than 140/90
[2018-06-11] MEDS: PANTOPRAZOLE 40 MG TABLET PO SCH (11:03)
[2018-06-11] MEDS: ACETAMINOPHEN TAB 325 MG TAB PO PRN (11:03)
[2018-06-11] MEDS: LOSARTAN 50 MG TAB PO SCH (11:04)
[2018-06-11] MEDS: DEXAMETHASONE SOD PHOSPHATE IV SCH ×2 (12:51)
[2018-06-11] MEDS: WATER IV SCH ×2 (12:51)
[2018-06-11] MEDS: DEXTROSE 5% IV SCH ×2 (12:51)
--- NOTE | 2018-06-11 15:45 | P.PN ---
Subjective Progress Note Date: 06/11/18 Principal diagnosis: abdominal pain Patient is a 57-year-old female with a past medical history of blood clot in the left eye, perimenopausal symptoms, and LAP-BAND procedure who presented with complaints of abdominal pain. She been seen by Dr. Boudreaux as outpatient one day prior to presentation and had some fluid drained from her lap band port which gave her some abdominal pain relief however the symptoms gradually returned she came back to the emergency department. In the emergency department she was found have an elevated BUN at 56 and elevated creatinine at 9.76 along with elevated potassium at 6.4. Her lipase was elevated at 917 and white blood cell count was elevated at 11.3. Urinalysis showed trace blood, trace leukocyte esterase, 9 white blood cells with rare mucus and bacteria cells. CT abdomen and pelvis without contrast revealed mild cardiomegaly, no abnormality within the kidney bladder or ureter, no abnormal findings. Patient was subsequently admitted for further management of her acute renal failure. She was started on temporizing measures for her hyperkalemia was given a dose of Kayexalate. Nephrology was consulted. She was also made nothing by mouth secondary to possible pancreatitis with her elevated lipase. She was seen by GI who determined she could have mild pancreatitis however her elevated lipase could also be secondary to her acute renal failure. Her diet was advanced as her abdominal pain had improved. Initially the patient was managed conservatively with eliminating any nephrotoxic agents and IV fluids. Despite good urine output her creatinine remains 9 and she was started on dialysis on 06/05 after a temporary catheter was placed. Work up revealed elevated lambda with protein spike on electrophoresis with concern of myeloma. She had a tunneled HD cath placed on 06/09. Patient seen and examined at bedside. Feeling okay today, edema better, still with PHELPS which was worse today, no nausea, appetite is still poor but improving over all. Objective - Vital Signs Vital signs: Vital Signs Temp 97.6 F 06/11/18 07:00 Pulse 61 06/11/18 07:00 Resp 16 06/11/18 07:00 BP 172/82 06/11/18 07:00 Pulse Ox 96 06/11/18 07:00 Intake & Output 06/10/18 06/11/18 06/11/18 18:59 06:59 18:59 Intake Total 1132 236 Output Total 1300 Balance -168 236 Intake: Oral 832 236 Hemodialysis 300 Output: Hemodialysis 1300 Other: Voiding Method Toilet Toilet # Voids 1 2 # Bowel Movements 1 - Exam General: non toxic, no distress, appears at stated age Derm: Pallor, warm, dry Head: + pain to palpation over occipital trigger point, increased tissue texture on right paraspinals of neck, atraumatic, normocephalic, symmetric Eyes: EOMI, no lid lag, anicteric sclera Mouth: no lip lesion, mucus membranes moist Cardiovascular: S1S2 reg, no murmur, positive posterior tibial pulse bilateral, Lungs: CTA b/l bilateral, no rhonchi, no rales , no accessory muscle use Abdominal: soft, nontender to palpation, no guarding, no appreciable organ omegaly Ext: no gross muscle atrophy, trace non pitting edema, no contractures Neuro: CN II-XI grossly intact, no focal neuro deficits Psych: Alert, oriented, appropriate affect - Labs CBC & Chem 7: 06/07/18 06:48 06/11/18 07:25 Labs: Abnormal Lab Results - Last 24 Hours (Table) 06/11/18 Range/Units 07:25 BUN 20 H (7-17) mg/dL Creatinine 2.88 H (0.52-1.04) mg/dL Assessment and Plan Assessment: Acute renal failure, requiring HD---- 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 -Workup currently pending -Renal ultrasound without evidence of hydronephrosis - renal biopsy pending - has HD chair for tuesday and permacath is in place HTN - lisinopril started by nephro - follow BP Probable myeloma -Concern for multiple myeloma, + free lambda light (bence ordonez) chains and proteinuria of 1050 - Oncology recommendations appreciated - bone marrow pending PHELPS and neck pain - tylenol - add flexeril with neck spasms -consider outpatient pain management for occipital nerve block. History of lap band procedure -Status post removal of fluid from well Resolved: Acute pancreatitis, resolved Hyperkalemia Non-anion gap metabolic acidosis DVT prophylaxis: Heparin Discussed with: Patient, nursing Anticipated discharge: in AM pending clearance from nephro and oncology. Anticipated discharge place: home A total of 25 minutes was spent on the care of this complex patient more than 50% of the time was spent in counseling and care coordination.
[2018-06-12] MEDS: HEPARIN SODIUM,PORCINE 5,000 UNIT/ML 1 ML VIAL SQ SCH ×2 (00:40→09:11)
[2018-06-12 01:30] VITALS: PULSE 85; RESP 15
[2018-06-12 07:54] VITALS: BP 156/87; TEMP 96.7
[2018-06-12 08:01] LABS: HCT 30.1 % (34.0-46.0); HGB 9.6 gm/dL (11.4-16.0); MCH 27.1 pg (25.0-35.0); MCHC 31.8 g/dL (31.0-37.0); MCV 85.3 fL (80.0-100.0); Mean Platelet Volume 7.2; Platelet Count 269 k/uL (150-450); RBC 3.53 m/uL (3.80-5.40); RDW 15.2 % (11.5-15.5); WBC 15.4 k/uL (3.8-10.6)
[2018-06-12 08:18] LABS: Potassium 3.7 mmol/L (3.5-5.1)
[2018-06-12 08:19] LABS: Calcium 8.9 mg/dL (8.4-10.2)
[2018-06-12] MEDS: LOSARTAN 50 MG TAB PO SCH (09:13)
[2018-06-12] MEDS: PANTOPRAZOLE 40 MG TABLET PO SCH (09:14)
--- NOTE | 2018-06-12 10:29 | P.PN ---
Subjective Patient is seen in follow-up for acute kidney injury. Her baseline creatinine from earlier this month was near 1. This admission it's been staying above 9. Urine output is good. She was started on hemodialysis on June 05. Lambda light chains are noted to be significantly elevated and there is high suspicion for multiple myeloma. She underwent bone marrow as well as kidney biopsy and the results are pending. Denies chest pain or shortness of breath. Complains of mild oozing from the catheter site. Vital signs are stable. General: The patient appeared well nourished and normally developed. HEENT: Head exam is unremarkable. Neck is without jugular venous distension. LUNGS: Lungs are clear to auscultation and percussion. Breath sounds decreased. HEART: Rate and Rhythm are regular. First and second heart sounds normal. No murmurs, rubs or gallops. ABDOMEN: Abdominal exam reveals normal bowel sounds. Non-tender and non-distended. No evidence of peritonitis. EXTREMITITES: Trace edema. Objective - Vital Signs Vital signs: Vital Signs Temp 96.7 F L 06/12/18 07:28 Pulse 85 06/12/18 07:28 Resp 15 06/12/18 00:36 BP 156/87 06/12/18 07:28 Pulse Ox 97 06/12/18 07:28 Intake & Output 06/11/18 06/12/18 06/12/18 18:59 06:59 18:59 Intake Total 768 300 Output Total 250 750 200 Balance 518 -750 100 Intake: Oral 768 300 Output: Urine 250 750 200 Other: Voiding Method Toilet Toilet Toilet # Voids 1 0 # Bowel Movements 0 - Labs CBC & Chem 7: 06/12/18 07:00 06/12/18 07:00 Labs: Abnormal Lab Results - Last 24 Hours (Table) 06/12/18 06/12/18 Range/Units 07:00 07:00 WBC 15.4 H (3.8-10.6) k/uL RBC 3.53 L (3.80-5.40) m/uL Hgb 9.6 L (11.4-16.0) gm/dL Hct 30.1 L (34.0-46.0) % Carbon Dioxide 32 H (22-30) mmol/L BUN 26 H (7-17) mg/dL Creatinine 2.98 H (0.52-1.04) mg/dL Assessment and Plan Plan: Assessment: 1. Acute kidney injury. She does have 1 g of proteinuria and lambda light chains are significantly elevated. 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 No hydronephrosis noted on CAT scan. Baseline creatinine near 1. Creatinine was above 9 with no improvement despite IV hydration. She was subsequently started on hemodialysis on June 05. Urine eosinophils negative. 2. Acute pancreatitis. Surgery following. Now on a renal diet. 3. Hyperkalemia secondary to acute kidney injury and metabolic acidosis. Better. 4. Metabolic acidosis secondary to acute kidney injury and IV fluids. 5. Benign hypertension. Plan: Hemodialysis tomorrow. She will be maintained on a Tuesday schedule. I will give her 1 dose of DDAVP today. Bone marrow and kidney biopsy results pending. Stable to be discharged home from nephrology standpoint.
--- NOTE | 2018-06-12 10:44 | P.DS ---
Providers Date of admission: 06/03/18 02:07 Expected date of discharge: 06/12/18 Attending physician: Ole Alcala MD Consults: 06/03/18 02:06 Consult Physician Urgent Consulting Provider: Iraj Munguia Consult Reason/Comments: ARF Do you want consulting provider notified?: Yes Consult Physician Urgent Consulting Provider: Brittanie Dacosta Consult Reason/Comments: pancreatitis Do you want consulting provider notified?: Yes 06/04/18 08:46 Consult Physician Routine Consulting Provider: Luis Alberto Enriquez Consult Reason/Comments: P cath tomorrow if needed Do you want consulting provider notified?: Yes 06/07/18 11:53 Consult Physician Routine Consulting Provider: Pb Hernandez Consult Reason/Comments: amyloid Do you want consulting provider notified?: Yes Primary care physician: [facility] Course: The patient is a 57-year-old female with a PMH of LAP-BAND procedure, blood clot in the left, and perimenopausal menopausal symptoms who presented to the ED with complaints of abdominal pain. The patient was seen by Dr. Boudreaux as an outpatient day prior to presentation and had fluid drained from her band port which provided significant relief to her abdominal pain, however the patient's symptoms gradually returned and she thereby presented to the ED. The patient had undergone an extensive evaluation in the ED and was found to have acute new[place] al failure with BUN 56 and creatinine 9.76 along with hyperkalemia to 6.4. She was also noted to have an elevated lipase at 917. The UA showed 9 WBCs with mucus and bacterial cells, trace blood, and trace leukocyte esterase. CT of abdomen without contrast revealed mild cardiomegaly but was otherwise unremarkable. The patient was subsequently admitted to the medicine service for further management of acute renal failure. Nephrology was consulted. Furthermore, she was made nothing by mouth and GI was consulted, who noted that the patient's elevated lipase could also be secondary to her acute renal failure. The patient's diet was thereby gradually advanced and her abdominal pain improved. The patient was managed conservatively with IV fluids and avoiding nephrotoxic agents however her kidney function did not improve despite good urine output. She was thereby started on dialysis in 06/05/2018 with a temporary Shiley catheter. The catheter was subsequently switched to a right-sided permacath which was placed on 06/09/2018. The patient underwent an extensive workup for acute renal failure which revealed an elevated lambda free light chain with elevated total protein, raising the concern for myeloma. The patient underwent a kidney biopsy along with a bone marrow biopsy, the results of which are pending. The patient's creatinine and BUN improved with hemodialysis. The patient was seen and examined at the bedside on 06/12/2018. She reports feeling well and was free of active complaints. She denied chest pain, fever, chills, cough, or shortness of breath. She further denied any abdominal pain, nausea, vomiting, or diarrhea. She is scheduled to undergo hemodialysis Tuesday, , and Tuesday as an outpatient, with follow-up with nephrology and hematology. Physical Examination General: Non-toxic, in no acute distress, appears stated age, normal weight HEENT: NC/AT, anicteric sclerae, moist conjunctiva, no lid-lag, PERRLA Cardiovascular: S1/S2 wnl, no murmurs, rubs, or gallops Lungs: Clear to auscultation, normal respiratory effort, no accessory muscle use, R sided permacath with dressing, clean and dry Abdominal: Soft, non-tender, non-distended, no guarding, rebound, or rigidity Skin: Warm, dry Extremities: 1+ LE edema lin, no erythema or tenderness Psychiatric: Alert and oriented to person, place and time, appropriate affect Neuro: CN II-XII grossly intact, Strength 5/5 in all 4 extremities, Speech intact, Sensation to light touch grossly intact throughout Discharge diagnosis: Acute renal failure, requiring hemodialysis, 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 Patient Condition at Discharge: Serious Plan - Discharge Summary New Discharge Prescriptions: New Losartan [Cozaar] 50 mg PO DAILY #30 tab Cyclobenzaprine [Flexeril] 5 mg PO TID PRN #30 tab PRN Reason: Muscle Spasm Continue Aspirin [Adult Low Dose Aspirin EC] 81 mg PO DAILY Discharge Medication List Aspirin [Adult Low Dose Aspirin EC] 81 mg PO DAILY 03/08/16 [History] Cyclobenzaprine [Flexeril] 5 mg PO TID PRN #30 tab 06/12/18 [Rx] Losartan [Cozaar] 50 mg PO DAILY #30 tab 06/12/18 [Rx] Follow up Appointment(s)/Referral(s): Pb Hernandez MD [STAFF PHYSICIAN] - 06/20/18 2:45 pm [place] Saavedra MD [Primary Care Provider] - 06/13/18 3:45 pm [facility] [NON-STAFF] - 06/19/18 1:20 pm Luis Alberto Enriquez MD [STAFF PHYSICIAN] - 06/21/18 1:00 pm (Venous mapping) Patient Instructions/Handouts: Perma-cath Placement (DC) Activity/Diet/Wound Care/Special Instructions: Hemodialysis at [facility] - [phone] - Your schedule is Tuesday, , and Tuesday at 11:45 a.m. Please arrive at 11:15 a.m. on 06/13/18 to complete paperwork. Bring your insurance card and discharge instructions from the hospitalization including medication list. Address is [address] [place] [id number]. Discharge Disposition: HOME SELF-CARE
[2018-06-12] MEDS ORDERED: DESMOPRESSIN ACETATE 24 MCG in SODIUM CHLORIDE 0.9% 50 ML IVPB ONE (11:00)
== END 2018-06-12 12:22 | disposition home or self-care (01) | DRG 673 ==
LOC: EC 23:25 → 4SSUR 06-03 02:07
PROVIDERS: ADMIT Internal Medicine; ATTEND Internal Medicine
PROC: 5A1D70Z Performance of Urinary Filtration, Intermittent, Less than 6 Hours Per Day (ICD-10-PCS; principal; 2018-06-05)
PROC: 06HY33Z Insertion of Infusion Device into Lower Vein, Percutaneous Approach (ICD-10-PCS; 2018-06-05)
PROC: 07DR3ZX Extraction of Iliac Bone Marrow, Percutaneous Approach, Diagnostic (ICD-10-PCS; 2018-06-08)
PROC: 0TB03ZX Excision of Right Kidney, Percutaneous Approach, Diagnostic (ICD-10-PCS; 2018-06-08)
PROC: 06PYX3Z Removal of Infusion Device from Lower Vein, External Approach (ICD-10-PCS; 2018-06-08)
PROC: 02HV33Z Insertion of Infusion Device into Superior Vena Cava, Percutaneous Approach (ICD-10-PCS; 2018-06-09)
PROC: 0JH63XZ Insertion of Tunneled Vascular Access Device into Chest Subcutaneous Tissue and Fascia, Percutaneous Approach (ICD-10-PCS; 2018-06-09 08:13)
DX: N17.0 Acute kidney failure with tubular necrosis (principal); K85.90 Acute pancreatitis without necrosis or infection, unspecified; C90.00 Multiple myeloma not having achieved remission; E87.4 Mixed disorder of acid-base balance; I31.3 Pericardial effusion (noninflammatory); K82.1 Hydrops of gallbladder; R18.8 Other ascites; I95.9 Hypotension, unspecified; R16.0 Hepatomegaly, not elsewhere classified; E83.39 Other disorders of phosphorus metabolism; E87.5 Hyperkalemia; N05.8 Unspecified nephritic syndrome with other morphologic changes; E86.0 Dehydration; E87.6 Hypokalemia; I10 Essential (primary) hypertension; M54.2 Cervicalgia; D72.829 Elevated white blood cell count, unspecified; Z78.0 Asymptomatic menopausal state; K59.00 Constipation, unspecified; T38.0X5A Adverse effect of glucocorticoids and synthetic analogues, initial encounter; Z79.82 Long term (current) use of aspirin; Z98.84 Bariatric surgery status
CPT/HCPCS: 36415; 36558; 38222; 71045; 74018; 74176; 76705; 76770; 76937; 77001; 77075; 80048; 80053; 80074; 81001; 81003; 81050; 82150; 82550; 82570; 82787; 83605; 83690; 83735; 83883; 84100; 84132; 84156; 84165; 84300; 84550; 85025; 85027; 85610; 86038; 86160; 86162; 86225; 86255; 86334; 86335; 86706; 86850; 86900; 86901; 87205; 87340; 90935; 93005; 96361; 96365; 96375; 99291

== ENCOUNTER → 2018-06-02 | Outpatient (CLI) | payer BC, OTHER | LOC: BARWHC3 09:28 | PROVIDERS: ATTEND Surgery | DX: Z53.9 Procedure and treatment not carried out, unspecified reason (principal) ==

== ENCOUNTER 2018-06-22 11:32 | Inpatient (IN) | payer BC, OTHER ==
[2018-06-22] MEDS ORDERED: SODIUM CHLORIDE 0.9% 1,000 ML IV STA (12:05)
[2018-06-22 12:30] LABS: Anisocytosis Slight; Basophils % (A) 0 %; Eosinophils # (A) 0.1 k/uL (0-0.7); Eosinophils % (A) 1 %; HCT 36.8 % (34.0-46.0); HGB 11.7 gm/dL (11.4-16.0); Lymphocytes # (A) 1.8 k/uL (1.0-4.8); Lymphocytes % (A) 13 %; MCH 27.4 pg (25.0-35.0); MCHC 31.8 g/dL (31.0-37.0); MCV 86.4 fL (80.0-100.0); Mean Platelet Volume 6.8; Monocytes % (A) 7 %; Neutrophils # (A) 10.7 k/uL (1.3-7.7); Neutrophils % (A) 77 %; Platelet Count 450 k/uL (150-450); RBC 4.26 m/uL (3.80-5.40); RDW 16.1 % (11.5-15.5)
[2018-06-22 12:37] LABS: Albumin 3.5 g/dL (3.5-5.0); Calcium 8.9 mg/dL (8.4-10.2); Magnesium 1.7 mg/dL (1.6-2.3); Potassium 4.2 mmol/L (3.5-5.1); Total Bilirubin 0.5 mg/dL (0.2-1.3); Total Protein 6.1 g/dL (6.3-8.2)
[2018-06-22 12:40] LABS: Partial Thromboplastin Time 23.5 sec (22.0-30.0); Prothrombin Time 10.6 sec (9.0-12.0)
--- NOTE | 2018-06-22 12:43 | ED ---
General Adult HPI - General Chief complaint: Recheck/Abnormal Lab/Rx Stated complaint: Low BP Time Seen by Provider: 06/22/18 11:44 Source: patient, RN notes reviewed Mode of arrival: wheelchair Limitations: no limitations - History of Present Illness Initial comments: 57-year-old female presents emergency Department with chief complaint of low blood pressure. 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 Patient states that she's been forcing herself to eat. She's had a recent diagnosis of multiple myeloma and was on 4 days of steroids from Dr[address] finn. Patient was on prednisone 40 mg. Patient states she discontinues on Tuesday. Patient states that she was given prescription for blood pressure medication though she never started. Patient denies any current chest pain or shortness breath. She also states that she's had recent renal failure that was diagnosed on 06/03/2018. Patient states she is scheduled started treatment for her multiple myeloma. She doesn't slight nausea no vomiting no diarrhea no constipation. She has good urine output. No fevers or chills no night sweats. - Related Data Home Medications Medication Instructions Recorded Confirmed Aspirin [Adult Low Dose Aspirin EC] 81 mg PO DAILY 03/08/16 06/22/18 Docusate [Colace] 200 mg PO DAILY 06/22/18 06/22/18 Allergies Allergy/AdvReac Type Severity Reaction Status Date / Time No Known Allergies Allergy Verified 06/03/18 08:00 Review of Systems ROS Statement: Those systems with pertinent positive or pertinent negative responses have been documented in the HPI. ROS Other: All systems not noted in ROS Statement are negative. Past Medical History Past Medical History: Cancer Additional Past Medical History / Comment(s): Blood clot in Left eye (origin unknown)...blood work/dx tests such as carotid u/s performed to determine etiology but remains unknown, multiple myloma, acute kindney injury History of Any Multi-Drug Resistant Organisms: None Reported Past Surgical History: Bariatric Surgery, Orthopedic Surgery, Tonsillectomy Additional Past Surgical History / Comment(s): Right knee meniscus repair (Feb 2016), Bariatric Lap band May 2009, bilateral cataract surgery (November 2013), Tonsillectomy 1959', lin carpal tunnel, dialysis port right side Past Anesthesia/Blood Transfusion Reactions: No Reported Reaction Additional Past Anesthesia/Blood Transfusion Reaction / Comment(s): No hx of blood transfusion Past Psychological History: No Psychological Hx Reported Smoking Status: Never smoker Past Alcohol Use History: None Reported Past Drug Use History: None Reported - Past Family History Father Family Medical History: Unable to Obtain Additional Family Medical History / Comment(s): does not know who her biologic father is Mother Additional Family Medical History / Comment(s): no hx of cancer or heart disease. Reports no family hx of cancer or heart disease General Exam Limitations: no limitations General appearance: alert, in no apparent distress Head exam: Present: atraumatic, normocephalic, normal inspection Eye exam: Present: normal appearance, PERRL, EOMI. Absent: scleral icterus, conjunctival injection, periorbital swelling ENT exam: Present: normal exam, normal oropharynx, mucous membranes moist Neck exam: Present: normal inspection. Absent: tenderness, meningismus, lymphadenopathy Respiratory exam: Present: normal lung sounds bilaterally. Absent: respiratory distress, wheezes, rales, rhonchi, stridor Cardiovascular Exam: Present: normal rhythm, tachycardia, normal heart sounds. Absent: systolic murmur, diastolic murmur, rubs, gallop, clicks GI/Abdominal exam: Present: soft, normal bowel sounds. Absent: distended, tenderness, guarding, rebound, rigid Neurological exam: Present: alert, oriented X3, CN II-XII intact Skin exam: Present: warm, dry, intact, normal color. Absent: rash Course Vital Signs 06/22/18 06/22/18 06/22/18 11:35 12:25 12:30 Temperature 98.2 F Pulse Rate 107 H 103 H 105 H Pulse Rate [ Sitting] Pulse Rate [ Standing] Pulse Rate [ Supine] Respiratory 18 12 13 Rate Blood Pressure 100/57 102/75 102/75 Blood Pressure [Sitting] Blood Pressure [Standing] Blood Pressure [Supine] O2 Sat by Pulse 98 99 98 Oximetry 06/22/18 06/22/18 06/22/18 12:40 12:50 13:00 Temperature Pulse Rate 104 H 87 86 Pulse Rate [ Sitting] Pulse Rate [ Standing] Pulse Rate [ Supine] Respiratory 16 11 L 18 Rate Blood Pressure 105/59 105/59 105/59 Blood Pressure [Sitting] Blood Pressure [Standing] Blood Pressure [Supine] O2 Sat by Pulse 99 97 98 Oximetry 06/22/18 06/22/18 13:10 13:46 Temperature Pulse Rate 86 Pulse Rate [ 88 Sitting] Pulse Rate [ 94 Standing] Pulse Rate [ 86 Supine] Respiratory 12 Rate Blood Pressure 108/59 Blood Pressure 126/72 [Sitting] Blood Pressure 109/80 [Standing] Blood Pressure 126/78 [Supine] O2 Sat by Pulse 98 Oximetry EKG Findings - EKG Comments: EKG Findings:: EKG performed at 12:22 sinus tachycardia rate of 12 SD 150 QRS 82 QT/QTC 380/495 Medical Decision Making - Medical Decision Making 57-year-old female sent for hypertension. Patient is found to have a non-STEMI. Patiently admitted to [facility] with cardiology consult - Lab Data Result diagrams: 06/22/18 12:09 06/22/18 12:09 Lab Results 06/22/18 06/22/18 06/22/18 Range/Units 12:09 12:09 12:09 WBC 14.0 H (3.8-10.6) k/uL RBC 4.26 (3.80-5.40) m/uL Hgb 11.7 (11.4-16.0) gm/dL Hct 36.8 (34.0-46.0) % MCV 86.4 (80.0-100.0) fL MCH 27.4 (25.0-35.0) pg MCHC 31.8 (31.0-37.0) g/dL RDW 16.1 H (11.5-15.5) % Plt Count 450 (150-450) k/uL Neutrophils % 77 % Lymphocytes % 13 % Monocytes % 7 % Eosinophils % 1 % Basophils % 0 % Neutrophils # 10.7 H (1.3-7.7) k/uL Lymphocytes # 1.8 (1.0-4.8) k/uL Monocytes # 1.0 (0-1.0) k/uL Eosinophils # 0.1 (0-0.7) k/uL Basophils # 0.0 (0-0.2) k/uL Anisocytosis Slight PT (9.0-12.0) sec INR (<1.2) APTT (22.0-30.0) sec Sodium 138 (137-145) mmol/L Potassium 4.2 (3.5-5.1) mmol/L Chloride 101 (98-107) mmol/L Carbon Dioxide 29 (22-30) mmol/L Anion Gap 8 mmol/L BUN 25 H (7-17) mg/dL Creatinine 1.35 H (0.52-1.04) mg/dL Est GFR (CKD-EPI)AfAm 51 (>60 ml/min/1.73 sqM) Est GFR (CKD-EPI)NonAf 44 (>60 ml/min/1.73 sqM) Glucose 97 (74-99) mg/dL Plasma Lactic Acid Ric 1.7 (0.7-2.0) mmol/L Calcium 8.9 (8.4-10.2) mg/dL Magnesium 1.7 (1.6-2.3) mg/dL Total Bilirubin 0.5 (0.2-1.3) mg/dL AST 19 (14-36) U/L ALT 25 (9-52) U/L Alkaline Phosphatase 109 (38-126) U/L Troponin I (0.000-0.034) ng/mL Total Protein 6.1 L (6.3-8.2) g/dL Albumin 3.5 (3.5-5.0) g/dL Urine Color Urine Appearance (Clear) Urine pH (5.0-8.0) Ur Specific Rew (1.001-1.035) Urine Protein (Negative) Urine Glucose (UA) (Negative) Urine Ketones (Negative) Urine Blood (Negative) Urine Nitrite (Negative) Urine Bilirubin (Negative) Urine Urobilinogen (<2.0) mg/dL Ur Leukocyte Esterase (Negative) Urine RBC (0-5) /hpf Urine WBC (0-5) /hpf Ur Squamous Epith Cells (0-4) /hpf 06/22/18 06/22/18 06/22/18 Range/Units 12:09 12:09 12:09 WBC (3.8-10.6) k/uL RBC (3.80-5.40) m/uL Hgb (11.4-16.0) gm/dL Hct (34.0-46.0) % MCV (80.0-100.0) fL MCH (25.0-35.0) pg MCHC (31.0-37.0) g/dL RDW (11.5-15.5) % Plt Count (150-450) k/uL Neutrophils % % Lymphocytes % % Monocytes % % Eosinophils % % Basophils % % Neutrophils # (1.3-7.7) k/uL Lymphocytes # (1.0-4.8) k/uL Monocytes # (0-1.0) k/uL Eosinophils # (0-0.7) k/uL Basophils # (0-0.2) k/uL Anisocytosis PT 10.6 (9.0-12.0) sec INR 1.0 (<1.2) APTT 23.5 (22.0-30.0) sec Sodium (137-145) mmol/L Potassium (3.5-5.1) mmol/L Chloride (98-107) mmol/L Carbon Dioxide (22-30) mmol/L Anion Gap mmol/L BUN (7-17) mg/dL Creatinine (0.52-1.04) mg/dL Est GFR (CKD-EPI)AfAm (>60 ml/min/1.73 sqM) Est GFR (CKD-EPI)NonAf (>60 ml/min/1.73 sqM) Glucose (74-99) mg/dL Plasma Lactic Acid Ric (0.7-2.0) mmol/L Calcium (8.4-10.2) mg/dL Magnesium (1.6-2.3) mg/dL Total Bilirubin (0.2-1.3) mg/dL AST (14-36) U/L ALT (9-52) U/L Alkaline Phosphatase (38-126) U/L Troponin I 0.122 H* (0.000-0.034) ng/mL Total Protein (6.3-8.2) g/dL Albumin (3.5-5.0) g/dL Urine Color Light Yellow Urine Appearance Clear (Clear) Urine pH 7.0 (5.0-8.0) Ur Specific Rew 1.010 (1.001-1.035) Urine Protein 3+ H (Negative) Urine Glucose (UA) Negative (Negative) Urine Ketones Negative (Negative) Urine Blood Trace H (Negative) Urine Nitrite Negative (Negative) Urine Bilirubin Negative (Negative) Urine Urobilinogen <2.0 (<2.0) mg/dL Ur Leukocyte Esterase Small H (Negative) Urine RBC 1 (0-5) /hpf Urine WBC 3 (0-5) /hpf Ur Squamous Epith Cells <1 (0-4) /hpf Critical Care Time Critical Care Time: Yes Total Critical Care Time: 35 Critical Care Time: Total 35 minutes of critical care time were used to initially evaluated patient, reviewed past medical history, review past labs and studies. Initial labs, EKG, chest x-ray were ordered. Patient was given IV fluid bolus for her hypotension which was symptomatic. Patient did improve from that standpoint or thrills were obtained which shows mild elevation of heart rate and drop her blood pressure. Patient states that she did not feel as. Patient troponin was found to be elevated at 0.122 by her troponin was not elevated even during acute renal failure. There are no acute EKG changes when compared to prior EKG. Patient was started on heparin low-dose at this time, patient will be admitted to hospitalist with consult to cardiology for NSTEMI Disposition Clinical Impression: NSTEMI (non-ST elevated myocardial infarction) Disposition: ADMITTED IP TO THIS HOSP Condition: Fair Additional Instructions: Please return to the Emergency Department if symptoms worsen or any other con cerns. Referrals: Venice Saavedra MD [Primary Care Provider] - 1-2 days
[2018-06-22 12:47] LABS: Appearance,Urine Clear (Clear); Bilirubin,Urine Negative (Negative); Blood,Urine Trace (Negative); Color,Urine Light Yellow; Glucose,Urine (UA) Negative (Negative); Ketones,Urine Negative (Negative); Leukocyte Esterase,Urine Small (Negative); Nitrite,Urine Negative (Negative); Protein,Urine 3+ (Negative); RBC,Urine 1 /hpf (0-5); Squamous Epithelial Cell,Urine <1 /hpf (0-4); Urobilinogen,Urine <2.0 mg/dL (<2.0)
--- NOTE | 2018-06-22 13:10 | XR ---
EXAMINATION TYPE: XR chest 2V DATE OF EXAM: 06/22/2018 COMPARISON: 06/09/2018 HISTORY: 57-year-old female with weakness TECHNIQUE: PA and lateral views FINDINGS: Heart upper limits of normal in size. Right anterior chest wall double-lumen hemodialysis catheter wi th tips in the right atrium. Mild prominence to the pulmonary vasculature. No consolidation. Trace le ft effusion is present. IMPRESSION: No pulmonary edema. The pulmonary vasculature is slightly cephalized suggesting possible early pulmon omid vascular congestion. Trace left pleural effusion.
[2018-06-22] MEDS ORDERED: HEPARIN SODIUM,PORCINE 5,000 UNIT/ML 1 ML VIAL IV ONE (14:20)
[2018-06-22] MEDS ORDERED: ASPIRIN 81 MG PO STA (14:20)
[2018-06-22] MEDS ORDERED: NITROGLYCERIN SL TABS 0.4 MG TAB SUBLINGUAL PRN (14:20)
[2018-06-22] MEDS: HEPARIN SOD,PORK IN 0.45% NACL 25,000 UNIT in 0.45% NACL 1 250ML.BAG IV SCH (14:53)
[2018-06-22] MEDS ORDERED: traMADol 50 MG TAB PO PRN (18:36)
[2018-06-22] MEDS ORDERED: MORPHINE SULFATE 4 MG/ML SYRINGE IV PRN (18:36)
[2018-06-22] MEDS ORDERED: NALOXONE 0.4 MG/ML 1 ML VIAL IV PRN (18:36)
[2018-06-22] MEDS ORDERED: CYCLOBENZAPRINE 5 MG TAB PO PRN (18:58)
--- NOTE | 2018-06-22 19:18 | P.HPIM ---
History of Present Illness H&P Date: 06/22/18 Chief Complaint: Headache, hypotension 57-year-old female with PMH of gastric lap band bariatric surgery, acute renal failure requiring dialysis on a Tuesday schedule, recent diagnosis of multiple myeloma presents to the ED for hypotension. is at bedside contributing to her history. Patient reports that over the last 2 days her BP has dropped. Patient has obtained a reading as low as 88/59. Today, patient was at Dr. Munguia's clinic and was sent to the ED for IVF for hypotension. Patient reports being admitted 3 weeks ago on 05/26/2018 for headache, dizziness and neck pain. CT of the head showed no acute intracranial abnormality. CT of the neck was negative. CT of the face showed right frontal sinusitis. Her headache was thought to be secondary to perimenopausal symptoms, acute sinusitis and she was discharged on 05/27/2018. Patient was readmitted on 06/03/2018 for epigastric pain. She was noted to have a creatinine of 9.67 and she was admitted for acute renal failure likely secondary to contrast during previous admission. CT of the abdomen and pelvis revealed mild cardiomegaly with no other findings. Patient was started on dialysis on 06/05/2018 after temporary catheter was placed. Patient was noted to have marked elevation of lambda light chain. She underwent bone marrow biopsy which confirmed multiple myeloma. Patient had been on Decadron 40 mg daily for 4 days, treatment stopped on Tuesday. Patient has also been receiving dialysis on a Tuesday schedule. Her last dialysis session was last . Patient reports a decreased appetite since her previous hospitalizations. She attributes her generalized weakness to being nothing by mouth during most of her time at [facility] and debility due to prolonged hospitalization. Her reports that she has lost about 20 pounds over the last 2 weeks. Patient also complains of dizziness that has been ongoing since her first [facility]. Dizziness is worse when going from a sitting or laying to a standing position. She denies any vertiginous symptoms. Patient currently complains of headaches that starts behind the ears bilaterally and is located in the occipital region. Pain is 7 out of 10 in severity. Pain is nonradiating. There are no alleviating or aggravating factors. Patient denies any blurry vision or photophobia. Patient does complain that it hurts more when she moves her head from side to side. Patient denies any lower extremity edema, nausea, vomiting, fever, cough, chest pain, shortness of breath, changes in urination or bowel habits. She denies any numbness/weakness/tingling of the extremities. In the ED, CBC showed a leukocytosis of 14. CMP showed a BUN of 25 and creatinine of 1.35. Troponin was 0.122, with EKG showing sinus tachycardia. Urinalysis showed small leukocyte esterase. Patient is admitted for troponin elevation, cardiology on consult. Review of Systems Pertinent positives and negatives as discussed in HPI, a complete review of systems was performed and all other systems are negative. Past Medical History Past Medical History: Cancer Additional Past Medical History / Comment(s): Blood clot in Left eye (origin unknown)...blood work/dx tests such as carotid u/s performed to determine etiology but remains unknown, multiple myloma, acute kindney injury History of Any Multi-Drug Resistant Organisms: None Reported Past Surgical History: Bariatric Surgery, Orthopedic Surgery, Tonsillectomy Additional Past Surgical History / Comment(s): Right knee meniscus repair (Feb 2016), Bariatric Lap band May 2009, bilateral cataract surgery (November 2013), Tonsillectomy , lin carpal tunnel, dialysis port right side Past Anesthesia/Blood Transfusion Reactions: No Reported Reaction Additional Past Anesthesia/Blood Transfusion Reaction / Comment(s): No hx of blood transfusion Past Psychological History: No Psychological Hx Reported Smoking Status: Never smoker Past Alcohol Use History: None Reported Past Drug Use History: None Reported - Past Family History Father Family Medical History: Unable to Obtain Additional Family Medical History / Comment(s): does not know who her biologic father is Mother Additional Family Medical History / Comment(s): no hx of cancer or heart disease. Reports no family hx of cancer or heart disease Medications and Allergies Home Medications Medication Instructions Recorded Confirmed Type Aspirin [Adult Low Dose Aspirin EC] 81 mg PO DAILY 03/08/16 06/22/18 History Docusate [Colace] 200 mg PO DAILY 06/22/18 06/22/18 History Allergies Allergy/AdvReac Type Severity Reaction Status Date / Time No Known Allergies Allergy Verified 06/03/18 08:00 Physical Exam Vitals: Vital Signs Temp Pulse Pulse Pulse Pulse Resp BP 06/22/18 13:46 88 94 86 06/22/18 13:10 86 12 108/59 06/22/18 13:00 86 18 105/59 06/22/18 12:50 87 11 L 105/59 06/22/18 12:40 104 H 16 105/59 06/22/18 12:30 105 H 13 102/75 06/22/18 12:25 103 H 12 102/75 06/22/18 11:35 98.2 F 107 H 18 100/57 BP BP BP Pulse Ox 06/22/18 13:46 126/72 109/80 126/78 06/22/18 13:10 98 06/22/18 13:00 98 06/22/18 12:50 97 06/22/18 12:40 99 06/22/18 12:30 98 06/22/18 12:25 99 06/22/18 11:35 98 Intake and Output 06/22/18 06/22/18 06/22/18 06:59 14:59 22:59 Other: # Voids 1 Weight 72.575 kg General: [non toxic], [no distress], [appears at stated age] Derm: [warm], [dry] Head: [atraumatic], [normocephalic], [symmetric], [tenderness in the occipital region, no spinal tenderness] Eyes: [EOMI], [no lid lag], [anicteric sclera] Mouth: [no lip lesion], [mucus membranes moist] Cardiovascular: [S1S2 reg], [no murmur], [positive DP pulse bilateral] Lungs: [CTA bilateral], [no rhonchi, no rales] , [no accessory muscle use] Abdominal: [soft], [ nontender to palpation], [no guarding], [no appreciable organomegaly] Ext: [no gross muscle atrophy], [no edema], [no contractures] Neuro: [ CN II-XI grossly intact], [no focal neuro deficits] Psych: [Alert], [oriented], [appropriate affect] Results CBC & Chem 7: 06/22/18 12:09 06/22/18 12:09 Labs: Abnormal Lab Results - Last 24 Hours (Table) 06/22/18 06/22/18 06/22/18 Range/Units 12:09 12:09 12:09 WBC 14.0 H (3.8-10.6) k/uL RDW 16.1 H (11.5-15.5) % Neutrophils # 10.7 H (1.3-7.7) k/uL BUN 25 H (7-17) mg/dL Creatinine 1.35 H (0.52-1.04) mg/dL Troponin I 0.122 H* (0.000-0.034) ng/mL Total Protein 6.1 L (6.3-8.2) g/dL Urine Protein (Negative) Urine Blood (Negative) Ur Leukocyte Esterase (Negative) 06/22/18 Range/Units 12:09 WBC (3.8-10.6) k/uL RDW (11.5-15.5) % Neutrophils # (1.3-7.7) k/uL BUN (7-17) mg/dL Creatinine (0.52-1.04) mg/dL Troponin I (0.000-0.034) ng/mL Total Protein (6.3-8.2) g/dL Urine Protein 3+ H (Negative) Urine Blood Trace H (Negative) Ur Leukocyte Esterase Small H (Negative) Thrombosis Risk Factor Assmnt - Choose All That Apply Any of the Below Risk Factors Present?: Yes Each Factor Represents 1 point: Age 41-60 years, Obesity (BMI >25) Other Risk Factors: Yes Each Risk Factor Represents 2 Points: Malignancy Thrombosis Risk Factor Assessment Total Risk Factor Score: 4 Thrombosis Risk Factor Assessment Level: Moderate Risk Assessment and Plan Assessment: Assessment and Plan Non-ST elevation HI Headache Hypotension Dizziness Acute renal failure Multiple myeloma Leukocytosis Troponin 0.122 with EKG showing sinus tachycardia. Echocardiogram 05/27/2018 shows EF 55-60% with mild LVH. Given risk factors including malignancy, concern for ACS. Plan: Trend 2 troponin/EKG to rule out ACS. Patient started on heparin drip. Continue aspirin. Continue Lipitor. Telemetry monitoring. Follow cardiology recommendations. Pain control with tramadol, [place] or morphine as needed. Nitrostat sublingually for chest pain. Tenderness to palpation in the occipital region. Appears like muscular strain. CT brain and CT C-spine during previous admission was within normal limits. CT of the face during previous admission showed signs of sinusitis. Plan: Pain management as above. Add Flexeril. Obtain x-ray of the skull and neck. BP 126/72. Normotensive here. Plan: Given elevated troponins, plans to rule out ACS. Continue normal saline 80 mL per hour. Daily orthostats. Vital signs every 4 hours. Appears orthostatic. Orthostatic negative in ED after fluid bolus. Plan: As above. Creatinine 1.35. Likely secondary to multiple myeloma and contrast-induced previous admission. Dialysis on Saturdays schedule. Plan: Avoid nephrotoxins. Daily BMP. Follow nephrology consultation. Replace and monitor electrolytes. Plan: Follow oncology consultation. Leukocytosis of 14 with neutrophilia. Patient afebrile. No obvious signs of infection. UA shows small leukocyte esterase. Plan: We'll continue to monitor. Daily CBC. DVT prophylaxis: [Heparin drip] Discussed with: [Patient and ] Anticipated discharge: [Home] Anticipated discharge place: [1-2 days] A total of [30] minutes was spent on the care of this complex patient more than 50% of the time was spent in counseling and care coordination. Patient names her Cedric in the case she cant make decisions for herself. Patient reiterates full code.
--- NOTE | 2018-06-22 19:55 | XR ---
EXAMINATION TYPE: XR skull limited DATE OF EXAM: 06/22/2018 COMPARISON: 06/08/2018 HISTORY: Occipital headache TECHNIQUE: 2 views FINDINGS: Calvarium is intact with normal vascular and suture markings. Sella turcica appears normal. There are no pathologic calcifications. IMPRESSION: Normal skull. No evidence of multiple myeloma. No change compared to old exam.
--- NOTE | 2018-06-22 20:45 | XR ---
EXAMINATION TYPE: XR soft tissue neck DATE OF EXAM: 06/22/2018 COMPARISON: NONE HISTORY: Occipital headache TECHNIQUE: 2 views FINDINGS: Epiglottis appears normal. Prevertebral soft tissues appear normal. Subglottic trachea appe ars normal. Tonsils and adenoids appear normal. There is narrowing of the C6-7 disc space consistent with degenerative disc disease. IMPRESSION: Normal cervical soft tissue exam.
[2018-06-22] MEDS: HYDROcodone/APAP 5-325MG 1 EACH TAB PO PRN (21:27)
[2018-06-22] MEDS: SODIUM CHLORIDE 0.9% 1,000 ML IV SCH (22:56)
[2018-06-23 07:59] LABS: Calcium 8.6 mg/dL (8.4-10.2); Potassium 4.3 mmol/L (3.5-5.1)
[2018-06-23 08:24] LABS: Anisocytosis Slight; Basophils % (A) 0 %; Eosinophils # (A) 0.2 k/uL (0-0.7); Eosinophils % (A) 2 %; HCT 33.6 % (34.0-46.0); HGB 10.5 gm/dL (11.4-16.0); Lymphocytes # (A) 1.8 k/uL (1.0-4.8); Lymphocytes % (A) 18 %; MCH 27.2 pg (25.0-35.0); MCHC 31.2 g/dL (31.0-37.0); Mean Platelet Volume 6.9; Monocytes # (A) 0.9 k/uL (0-1.0); Monocytes % (A) 9 %; Neutrophils # (A) 6.8 k/uL (1.3-7.7); Neutrophils % (A) 68 %; Platelet Count 413 k/uL (150-450); RBC 3.87 m/uL (3.80-5.40); RDW 16.3 % (11.5-15.5)
[2018-06-23] MEDS: DOCUSATE 100 MG CAP PO SCH (09:35)
[2018-06-23] MEDS: ATORVASTATIN 40 MG TAB PO SCH (09:35)
[2018-06-23] MEDS: ASPIRIN 325 MG TAB PO SCH (09:35)
[2018-06-23] MEDS: ACETAMINOPHEN TAB 325 MG TAB PO PRN ×2 (09:36→15:05)
[2018-06-23] MEDS: SODIUM CHLORIDE 0.9% 1,000 ML IV SCH ×2 (09:38→21:04)
--- NOTE | 2018-06-23 10:42 | P.CRDCN ---
History of Present Illness Consult date: 06/23/18 Chief complaint: Dizziness and lightheadedness History of present illness: This is a pleasant 57-year-old female patient with a past medical history significant for recent diagnosis of multiple myeloma as well as chronic kidney disease who was referred by her program coordinator for residence life to come to the hospital because of low blood pressure. For the last 2 days, she has been feeling dizzy and lightheaded. Her blood pressure at her program coordinator for residence life office was in the 80s and 90s. The patient did not have any symptoms of chest pain or chest discomfort, difficulty breathing, feeling of heart racing or fluttering, or syncope. The cardiac enzymes were checked and came in to be slightly abnormal but the patient does not have normal creatinine. The EKG showed sinus rhythm with old anterior OH. The patient does not have any diabetes, hypertension, or dyslipidemia. She does not smoke. There is no family history of coronary artery disease. Giving the abnormal kidney function and the trending of creatinine down, I would recommend a conservative medical approach at this point. I would agree about keeping the patient on aspirin and statin and heparin for additional 24 hours. Severe underlying coronary artery disease to be ruled out by a stress test either as an inpatient or as an outpatient. The meanwhile we'll obtain an echocardiogram was Doppler. Past Medical History Past Medical History: Cancer Additional Past Medical History / Comment(s): Blood clot in Left eye (origin unknown)...blood work/dx tests such as carotid u/s performed to determine etiology but remains unknown, multiple myloma, acute kindney injury History of Any Multi-Drug Resistant Organisms: None Reported Past Surgical History: Bariatric Surgery, Orthopedic Surgery, Tonsillectomy Additional Past Surgical History / Comment(s): Right knee meniscus repair (Feb 2016), Bariatric Lap band May 2009, bilateral cataract surgery (November 2013), Tonsillectomy 1959's, lin carpal tunnel, dialysis port right side Past Anesthesia/Blood Transfusion Reactions: No Reported Reaction Additional Past Anesthesia/Blood Transfusion Reaction / Comment(s): No hx of blood transfusion Past Psychological History: No Psychological Hx Reported Smoking Status: Never smoker Past Alcohol Use History: None Reported Past Drug Use History: None Reported - Past Family History Father Family Medical History: Unable to Obtain Additional Family Medical History / Comment(s): does not know who her biologic father is Mother Additional Family Medical History / Comment(s): no hx of cancer or heart disease. Reports no family hx of cancer or heart disease Medications and Allergies Home Medications Medication Instructions Recorded Confirmed Type Aspirin [Adult Low Dose Aspirin EC] 81 mg PO DAILY 03/08/16 06/22/18 History Docusate [Colace] 200 mg PO DAILY 06/22/18 06/22/18 History Allergies Allergy/AdvReac Type Severity Reaction Status Date / Time No Known Allergies Allergy Verified 06/03/18 08:00 Physical Exam Vitals: Vital Signs Temp Pulse Pulse Pulse Pulse Resp BP 06/23/18 08:00 98.3 F 86 18 06/23/18 04:00 97.9 F 81 18 06/23/18 00:00 98.6 F 96 16 06/22/18 20:00 98.5 F 91 16 06/22/18 19:08 92 06/22/18 15:15 98.0 F 104 H 06/22/18 13:46 88 94 86 06/22/18 13:10 86 12 108/59 06/22/18 13:00 86 18 105/59 06/22/18 12:50 87 11 L 105/59 06/22/18 12:40 104 H 16 105/59 06/22/18 12:30 105 H 13 102/75 06/22/18 12:25 103 H 12 102/75 06/22/18 11:35 98.2 F 107 H 18 100/57 BP BP BP Pulse Ox 06/23/18 08:00 123/70 96 06/23/18 04:00 113/75 97 06/23/18 00:00 116/78 96 06/22/18 20:00 120/65 95 06/22/18 19:08 118/70 98 06/22/18 15:15 144/81 98 06/22/18 13:46 126/72 109/80 126/78 06/22/18 13:10 98 06/22/18 13:00 98 06/22/18 12:50 97 06/22/18 12:40 99 06/22/18 12:30 98 06/22/18 12:25 99 06/22/18 11:35 98 Intake and Output 06/22/18 06/23/18 06/23/18 22:59 06:59 14:59 Intake Total 80.413 Balance 80.413 Intake: Intake, IV Titration 80.413 Amount Heparin Sod,Pork in 0.45% 80.413 NaCl 25,000 unit In 0.45 % NaCl 1 250ml.bag @ 12 UNITS/KG/HR 8.709 mls/hr IV .Q24H [facility] Rx#: [id number] Other: Voiding Method Toilet # Voids 3 4 Weight 71.1 kg - Constitutional General appearance: no acute distress - Respiratory Respiratory: bilateral: CTA - Cardiovascular Rhythm: regular Heart sounds: normal: S1, S2 Results 06/23/18 07:04 06/23/18 07:04 Cardiac Enzymes 06/22/18 06/22/18 06/22/18 Range/Units 12:09 12:09 18:06 AST 19 (14-36) U/L Troponin I 0.122 H* 0.126 H* (0.000-0.034) ng/mL 06/22/18 Range/Units 23:37 AST (14-36) U/L Troponin I 0.128 H* (0.000-0.034) ng/mL Coagulation 06/22/18 06/22/18 06/23/18 Range/Units 12:09 23:37 07:04 PT 10.6 (9.0-12.0) sec APTT 23.5 26.5 27.9 (22.0-30.0) sec Lipids 06/23/18 Range/Units 07:04 Triglycerides 251 H (<150) mg/dL Cholesterol 218 H (<200) mg/dL HDL Cholesterol 48 (40-60) mg/dL CBC 06/22/18 06/23/18 Range/Units 12:09 07:04 WBC 14.0 H 10.0 (3.8-10.6) k/uL RBC 4.26 3.87 (3.80-5.40) m/uL Hgb 11.7 10.5 L (11.4-16.0) gm/dL Hct 36.8 33.6 L (34.0-46.0) % Plt Count 450 413 (150-450) k/uL Comprehensive Metabolic Panel 06/22/18 06/23/18 Range/Units 12:09 07:04 Sodium 138 140 (137-145) mmol/L Potassium 4.2 4.3 (3.5-5.1) mmol/L Chloride 101 108 H (98-107) mmol/L Carbon Dioxide 29 28 (22-30) mmol/L BUN 25 H 22 H (7-17) mg/dL Creatinine 1.35 H 1.19 H (0.52-1.04) mg/dL Glucose 97 86 (74-99) mg/dL Calcium 8.9 8.6 (8.4-10.2) mg/dL AST 19 (14-36) U/L ALT 25 (9-52) U/L Alkaline Phosphatase 109 (38-126) U/L Total Protein 6.1 L (6.3-8.2) g/dL Albumin 3.5 (3.5-5.0) g/dL Current Medications Generic Name Dose Route Start Last Admin Trade Name Freq PRN Reason Stop Dose Admin Acetaminophen 650 mg 06/22/18 18:36 06/23/18 09:36 Tylenol Tab PO 650 mg Q6HR PRN Administration Mild Pain or Fever > 100.5 Hydrocodone Bitart/Acetaminophen 1 each 06/22/18 18:36 06/22/18 21:27 Wilkinson 5-325 PO 1 each Q4HR PRN Administration Moderate Pain Aspirin 325 mg 06/23/18 09:00 06/23/18 09:35 Aspirin PO 325 mg DAILY [facility] Administration Atorvastatin Calcium 40 mg 06/23/18 09:00 06/23/18 09:35 Lipitor PO 40 mg DAILY [facility] Administration Cyclobenzaprine HCl 5 mg 06/22/18 18:58 Flexeril PO TID PRN Muscle Spasm Docusate Sodium 200 mg 06/23/18 09:00 06/23/18 09:35 Colace PO 200 mg DAILY [facility] Administration Heparin Sodium/Sodium Chloride 250 mls @ 8.709 mls/hr 06/22/18 14:30 06/23/18 00:07 25,000 unit/ Sodium Chloride IV 15 units/kg/hr .Q24H [facility] 10.886 mls/hr Titration Protocol 12 UNITS/KG/HR Sodium Chloride 1,000 mls @ 80 mls/hr 06/22/18 18:45 06/23/18 09:38 Saline 0.9% IV 80 mls/hr .[id number] [facility] Administration Morphine Sulfate 2 mg 06/22/18 18:36 Morphine Sulfate (Inj) IV Q4HR PRN Severe Pain Naloxone HCl 0.2 mg 06/22/18 18:36 Narcan IV Q2M PRN Opioid Reversal Nitroglycerin 0.4 mg 06/22/18 14:20 Nitrostat SUBLINGUAL Q5M PRN Chest Pain Tramadol HCl 50 mg 06/22/18 18:36 Ultram PO Q6H PRN Moderate Pain Intake and Output 06/22/18 06/23/18 06/23/18 22:59 06:59 14:59 Intake Total 80.413 Balance 80.413 Intake: Intake, IV Titration 80.413 Amount Heparin Sod,Pork in 0.45% 80.413 NaCl 25,000 unit In 0.45 % NaCl 1 250ml.bag @ 12 UNITS/KG/HR 8.709 mls/hr IV .Q24H [facility] Rx#: [id number] Other: Voiding Method Toilet # Voids 3 4 Weight 71.1 kg 06/23/18 07:04 06/23/18 07:04 Assessment and Plan Assessment: Assessment #1 chronic kidney disease #2 multiple myeloma Plan #1 conservative medical approach at this point in view of the kidney dysfunction #2 continue the aspirin and statin and heparin #3 obtain an echocardiogram was Doppler #4 follow-up with the patient Thank you for allowing us participate in her care and we will continue following up with the patient
--- NOTE | 2018-06-23 12:25 | ECHOF ---
Referral Reason:nstemi MEASUREMENTS -------- HEIGHT: 167.6 cm WEIGHT: 70.8 kg BP: 123/70 RVIDd: 3.2 cm (< 3.3) IVSd: 1.4 cm (0.6 - 1.1) LVIDd: 4.0 cm (3.9 - 5.3) LVPWd: 1.3 cm (0.6 - 1.1) IVSs: 1.9 cm LVIDs: 2.4 cm LVPWs: 1.8 cm LA Diam: 3.5 cm (2.7 - 3.8) LAESV Index (A-L): 39.67 ml/m Ao Diam: 3.0 cm (2.0 - 3.7) AV Cusp: 2.2 cm (1.5 - 2.6) MV EXCURSION: 16.095 mm (> 18.000) MV EF SLOPE: 84 mm/s (70 - 150) EPSS: 0.3 cm MV E Quinn: 0.80 m/s MV DecT: 236 ms MV A Quinn: 0.48 m/s MV E/A Ratio: 1.66 AR PHT: 862 ms RAP: 5.00 mmHg RVSP: 32.38 mmHg FINDINGS -------- Sinus rhythm. This was a technically good study. The left ventricular size is normal. There is moderate concentric left ventricular hypertrophy. O verall left ventricular systolic function is normal with, an EF between 60 - 65 %. Appearance of my ocardium is consistent with infiltrative cardiomyopathy. The right ventricle is normal in size. LA is moderately dilated 34-39 ml/m2 The right atrium is normal in size. ASD noted The aortic valve is trileaflet and appears structurally normal. The mitral valve leaflets are mildly thickened. Mild mitral annular calcification present. Mild m itral regurgitation is present. Mild tricuspid regurgitation present. Right ventricular systolic pressure is normal at < 35 mmHg. Trace/mild (physiologic) pulmonic regurgitation. The aortic root size is normal. Normal inferior vena cava with normal inspiratory collapse consistent with estimated right atrial pre ssure of 5 mmHg. The inferior vena cava is mildly dilated. There is a moderate pericardial effusion is located near the right ventricle. Small Pleural Effusio n. CONCLUSIONS -------- 1. Sinus rhythm. 2. This was a technically good study. 3. The left ventricular size is normal. 4. There is moderate concentric left ventricular hypertrophy. 5. Overall left ventricular systolic function is normal with, an EF between 60 - 65 %. 6. Appearance of myocardium is consistent with infiltrative cardiomyopathy. 7. The right ventricle is normal in size. 8. LA is moderately dilated 34-39 ml/m2 9. The right atrium is normal in size. 10. ASD noted 11. The aortic valve is trileaflet and appears structurally normal. 12. The mitral valve leaflets are mildly thickened. 13. Mild mitral annular calcification present. 14. Mild mitral regurgitation is present. 15. Mild tricuspid regurgitation present. 16. Right ventricular systolic pressure is normal at < 35 mmHg. 17. Trace/mild (physiologic) pulmonic regurgitation. 18. The aortic root size is normal. 19. Normal inferior vena cava with normal inspiratory collapse consistent with estimated right atrial pressure of 5 mmHg. 20. The inferior vena cava is mildly dilated. 21. There is a moderate pericardial effusion is located near the right ventricle. 22. Small Pleural Effusion. [employer]: Bouchra Nicole RDCS
--- NOTE | 2018-06-23 13:38 | CONS ---
CONSULTATION REASON FOR CONSULT: Renal failure. HISTORY OF PRESENT ILLNESS: Patient is a 57-year-old female who was recently diagnosed with amyloidosis and she had severe acute kidney injury with a creatinine of 9.7 mg/dL on her recent admission on 06/02/2018. At that time, patient was started on dialysis and dialysis was continued as outpatient. Kidney biopsy was done and the diagnosis of amyloidosis was made. The patient received steroids through the oncologist office. Her last dose was on Tuesday. We have also taken her off of dialysis since her urine output had improved and serum creatinine had been around 2 mg/dL. The patient continues to have good urine output and she has not had dialysis for about a week now. Her PermCath was flushed last week. Her creatinine this morning was 1.19. Patient was admitted to the hospital with complaints of hypotension and headache. She stated that her blood pressure was in the 80s at home. She denied any chest pains. Her last dose of steroids was on Tuesday, about 5 days ago. The patient denied any fever, chills, cough, abdominal pain, or diarrhea. As mentioned earlier, she has had good urine output. Her troponin was elevated at 0.128 and 0.122. She will be seen by Cardiology. Conservative management along with statins and aspirin has been recommended. PAST MEDICAL HISTORY: Recent diagnosis of multiple myeloma/amyloidosis, recent acute kidney injury requiring renal replacement therapy, previous history of blood clot in the left eye details not clear. All workup apparently was negative. PAST SURGICAL HISTORY: Tonsillectomy, cataract surgery, right knee meniscus repair, lap band procedure, carpal tunnel syndrome, PermCath placement. SOCIAL HISTORY: Negative for smoking, drug abuse or alcohol abuse. MEDICATIONS: Medications at home prior to admission included Colace and aspirin. ALLERGIES: None. REVIEW OF SYSTEMS: As per HPI. Other systems negative. PHYSICAL EXAMINATION: On examination, patient is currently comfortable. She is complaining of headache. She is not in any acute distress. Blood pressure this morning was 123/70, heart rate 86 per minute. She is afebrile. EXAMINATION OF THE HEART: S1, S2. EXAMINATION OF THE LUNGS: Bilateral breath sounds are heard. Abdomen is soft, nontender. Examination of lower extremities shows no evidence of edema. [employer]CH[employer]IC AP[employer]ENTICE exam is grossly intact. LABS: Labs show hemoglobin 10.5, sodium 140, potassium 4.3, chloride 108, BUN 22, serum creatinine 1.19. UA shows 3+ protein, trace blood. ASSESSMENT: 1. Acute kidney injury, acute tubular necrosis and secondary to cast nephropathy and recent diagnosis of multiple myeloma/amyloidosis. 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 This was done on 06/10/2018. Plans are to initiate chemotherapy. Patient started with the steroids with Oncology and she will be further evaluated for that. 2. Hypotension, possibly related to some degree of adrenal insufficiency given the recent high-dose steroids that the patient received as outpatient. There is no evidence of ongoing infection. Patient has not been dialyzed over the past few days. She was also hypovolemic to some degree and currently blood pressure is improved with the IV fluids. We can either add prednisone or use midodrine to help keep her blood pressure up. I will discuss with Oncology. 3. Acute kidney injury requiring dialysis, currently off of dialysis. Serum creatinine is down to 1.1. I will continue to hold off on dialysis for now. The patient has had good urine output. 4. Elevated troponin, most likely related to the hypotension. No plans for any intervention from cardiology standpoint. Continue with the statins. Continue with the aspirin. PLAN: Continue IV fluids. Continue to hold off on dialysis. Use prednisone versus midodrine if the patient continues to be hypotensive. We will discuss with Oncology. Thank you for this consultation. Will continue to follow the patient with you during her hospitalization. MMANDIL / HEN: [id number] /
[2018-06-23 13:42] VITALS: BMI 25.2
--- NOTE | 2018-06-23 13:48 | P.PN ---
Subjective Progress Note Date: 06/23/18 Principal diagnosis: Hypotension Patient is a 57-year-old female with history of multiple myeloma, complicated with renal failure was on dialysis, presents with hypotension, dizziness 2 days noted to be hypotensive, on in the emergency room noted to have elevated troponins placed on heparin, aspirin, statin Objective - Vital Signs Vital signs: Vital Signs Temp 98.3 F 06/23/18 08:00 Pulse 86 06/23/18 08:00 Resp 18 06/23/18 08:00 BP 123/70 06/23/18 08:00 Pulse Ox 96 06/23/18 08:00 Intake & Output 06/22/18 06/23/18 06/23/18 18:59 06:59 18:59 Intake Total 80.413 Balance 80.413 Weight 72.575 kg 71.1 kg Intake: Intake, IV Titration 80.413 Amount Heparin Sod,Pork in 0.45% 80.413 NaCl 25,000 unit In 0.45 % NaCl 1 250ml.bag @ 12 UNITS/KG/HR 8.709 mls/hr IV .Q24H [facility] Rx#: [id number] Other: Voiding Method Toilet # Voids 1 4 - Constitutional General appearance: Present: average body habitus, cooperative, no acute distress - EENT Eyes: Present: PERRLA - Respiratory Respiratory: bilateral: CTA - Cardiovascular Rhythm: regular - Gastrointestinal General gastrointestinal: Present: normal bowel sounds - Neurologic Neurologic: Present: CNII-XII intact - Psychiatric Psychiatric: Present: A&O x's 3, appropriate affect, intact judgment & insight - Labs CBC & Chem 7: 06/23/18 07:04 06/23/18 07:04 Labs: Abnormal Lab Results - Last 24 Hours (Table) 06/22/18 06/22/18 06/22/18 Range/Units 12:09 18:06 23:37 Hgb (11.4-16.0) gm/dL Hct (34.0-46.0) % RDW (11.5-15.5) % Chloride (98-107) mmol/L BUN (7-17) mg/dL Creatinine (0.52-1.04) mg/dL Troponin I 0.122 H* 0.126 H* 0.128 H* (0.000-0.034) ng/mL Triglycerides (<150) mg/dL Cholesterol (<200) mg/dL LDL Cholesterol, Calc (0-99) mg/dL 06/23/18 06/23/18 Range/Units 07:04 07:04 Hgb 10.5 L (11.4-16.0) gm/dL Hct 33.6 L (34.0-46.0) % RDW 16.3 H (11.5-15.5) % Chloride 108 H (98-107) mmol/L BUN 22 H (7-17) mg/dL Creatinine 1.19 H (0.52-1.04) mg/dL Troponin I (0.000-0.034) ng/mL Triglycerides 251 H (<150) mg/dL Cholesterol 218 H (<200) mg/dL LDL Cholesterol, Calc 120 H (0-99) mg/dL Assessment and Plan (1) NSTEMI (non-ST elevated myocardial infarction) Narrative/Plan: Elevated troponins, appreciate cardiology input, echocardiogram showed infiltrative cardiomyopathy, moderate pericardial effusion, await further recommendations from cardiology, plan is to continue heparin for the next 24 hours, continue aspirin, continue statin Current Visit: Yes Status: Acute Code(s): I21.4 - NON-ST ELEVATION (NSTEMI) MYOCARDIAL INFARCTION SNOMED Code(s): 41231276 (2) Acute kidney injury Current Visit: No Status: Acute Code(s): N17.9 - ACUTE KIDNEY FAILURE, UNSPECIFIED SNOMED Code(s): 38028415 (3) Acute renal failure (ARF) Narrative/Plan: Patient with renal failure as a complication of her myeloma, was on dialysis, her kidneys have recovered on her creatinine continues to improve ALLERGIES no need for plan for dialysis in the near future Current Visit: No Status: Acute Priority: High Code(s): N17.9 - ACUTE KID WARREN FAILURE, UNSPECIFIED SNOMED Code(s): 64605276 (4) Monoclonal gammopathies Narrative/Plan: Oncologist been consulted. We will await further input Current Visit: No Status: Acute Code(s): D47.2 - MONOCLONAL GAMMOPATHY SNOMED Code(s): 238494018 (5) Hypotension Narrative/Plan: Patient hypotension is improved with fluids, she was on high-dose steroids so question of relative adrenal insufficiency was playing a role, at this time would not start any stress dose steroids will monitor Current Visit: Yes Status: Acute Code(s): I95.9 - HYPOTENSION, UNSPECIFIED SNOMED Code(s): 07597066 Plan: Family's questions were addressed, await further workup and management,
[2018-06-23] MEDS: HEPARIN SOD,PORK IN 0.45% NACL 25,000 UNIT in 0.45% NACL 1 250ML.BAG IV SCH (15:11)
[2018-06-23] MEDS ORDERED: NA PHOS,M-B/NA PHOS,DI-BA 133 ML ENEMA RECTAL ONE (17:59)
[2018-06-23] MEDS: HYDROcodone/APAP 5-325MG 1 EACH TAB PO PRN (21:02)
--- NOTE | 2018-06-24 01:02 | P.CONS ---
History of Present Illness - Reason for Consult Consult date: 06/23/18 Hypotension, new diagnosis multiple myeloma - History of Present Illness The patient is a 57-year-old white female, fairly healthy at baseline, initially seen in consult last month. She had presented with acute renal aisha lure, with workup revealing markedly elevated lambda light chains in the serum. The patient had a bone marrow aspiration biopsy, as well as a kidney biopsy. She was found to have 40-50% involvement of the bone marrow with monoclonal lambda light chain restricted plasma cells, confirming multiple myeloma. Kidney biopsy also showed lambda light chain deposition. The patient was treated in patient with dialysis, and also received bolus Decadron 40 mg daily for 4 days on, 4 days off, 2 total. The patient was seen in the office last week, with a plan to start her on induction treatment for myeloma with Velcade, Revlimid and Decadron. The patient's renal function has actually shown improvement in the outpatient setting and she has been off dialysis now for 2 weeks with continued improvement in creatinine. The patient drove herself to the nephrology office yesterday for regular follow-up. She developed hypotension after a blood draw, with blood pressure dropping into the 80s. She was also somewhat symptomatic. Blood pressure did not improve with oral fluids. She was therefore sent in to the emergency room. Labs showed a mildly elevated troponin in the 0.12-0.13 range where it has remained stable. The patient was admitted and started on IV fluids with fairly quick normalization of blood pressure. Echocardiogram showed normal ejection fraction and no wall motion abnormality but was suggestive of infiltration in the myocardium. However ejection fraction was maintained as noted. Consult was therefore placed further evaluation and recommendations. She denied any diarrhea, or obvious blood loss. Review of Systems Constitutional: Reports fatigue, Reports poor appetite, Reports weakness Eyes: left decreased vision, denies blurred vision, denies pain Ears: deny: decreased hearing, ear discharge, earache, tinnitus Ears, nose, mouth and throat: Denies headache, Denies sore throat Cardiovascular: Reports decreased exercise tolerance Respiratory: Denies cough Gastrointestinal: Reports constipation Genitourinary: Denies dysuria, Denies hematuria Menstruation: Reports cycle variable Musculoskeletal: Reports muscle weakness Integumentary: Denies pruritus, Denies rash Neurological: Reports as per HPI, Reports weakness Psychiatric: Reports anxiety Endocrine: Reports as per HPI, Reports fatigue, Reports recent glucocorticoid use Hematologic/Lymphatic: Reports as per HPI Past Medical History Past Medical History: Cancer Additional Past Medical History / Comment(s): Blood clot in Left eye (origin unknown)...blood work/dx tests such as carotid u/s performed to determine etiology but remains unknown, multiple myloma, acute kindney injury History of Any Multi-Drug Resistant Organisms: None Reported Past Surgical History: Bariatric Surgery, Orthopedic Surgery, Tonsillectomy Additional Past Surgical History / Comment(s): Right knee meniscus repair (Feb 2016), Bariatric Lap band May 2009, bilateral cataract surgery (November 2013), Tonsillectomy , lin carpal tunnel, dialysis port right side Past Anesthesia/Blood Transfusion Reactions: No Reported Reaction Additional Past Anesthesia/Blood Transfusion Reaction / Comm: No hx of blood transfusion Past Psychological History: No Psychological Hx Reported Smoking Status: Never smoker Past Alcohol Use History: None Reported Past Drug Use History: None Reported - Past Family History Father Family Medical History: Unable to Obtain Additional Family Medical History / Comment(s): does not know who her biologic father is Mother Additional Family Medical History / Comment(s): no hx of cancer or heart disease. Reports no family hx of cancer or heart disease Medications and Allergies Home Medications Medication Instructions Recorded Confirmed Type Aspirin [Adult Low Dose Aspirin EC] 81 mg PO DAILY 03/08/16 06/22/18 History Docusate [Colace] 200 mg PO DAILY 06/22/18 06/22/18 History Allergies Allergy/AdvReac Type Severity Reaction Status Date / Time No Known Allergies Allergy Verified 06/03/18 08:00 Physical Exam Vitals: Vital Signs Temp Pulse Pulse Resp BP BP BP 06/23/18 15:01 97.9 F 87 18 107/64 06/23/18 08:00 98.3 F 86 18 123/70 06/23/18 04:00 97.9 F 81 18 113/75 06/23/18 00:00 98.6 F 96 16 116/78 06/22/18 20:00 98.5 F 91 16 120/65 06/22/18 19:08 92 118/70 Pulse Ox 06/23/18 15:01 98 06/23/18 08:00 96 06/23/18 04:00 97 06/23/18 00:00 96 06/22/18 20:00 95 06/22/18 19:08 98 Intake and Output 06/23/18 06/23/18 06/23/18 06:59 14:59 22:59 Intake Total 80.413 649.587 Balance 80.413 649.587 Intake: Intake, IV Titration 80.413 169.587 Amount Heparin Sod,Pork in 0.45% 80.413 169.587 NaCl 25,000 unit In 0.45 % NaCl 1 250ml.bag @ 12 UNITS/KG/HR 8.709 mls/hr IV .Q24H [facility] Rx#: [id number] Oral 480 Other: # Voids 4 2 Weight 71.1 kg 71.1 kg - Constitutional General appearance: no acute distress - EENT Eyes: EOMI, PERRLA ENT: hearing grossly normal, normal oropharynx - Neck Neck: no lymphadenopathy Thyroid: bilateral: normal size - Respiratory Respiratory: bilateral: CTA - Cardiovascular Rhythm: regular Heart sounds: normal: S1, S2 - Gastrointestinal General gastrointestinal: normal bowel sounds, soft - Integumentary Integumentary: normal - Neurologic Neurologic: CNII-XII intact, focal deficits - Musculoskeletal Musculoskeletal: generalized weakness, strength equal bilaterally - Psychiatric Psychiatric: A&O x's 3, appropriate affect Results CBC & Chem 7: 06/23/18 07:04 06/23/18 07:04 Labs: Abnormal Lab Results - Last 24 Hours (Table) 06/22/18 06/22/18 06/23/18 Range/Units 18:06 23:37 07:04 Hgb (11.4-16.0) gm/dL Hct (34.0-46.0) % RDW (11.5-15.5) % Chloride 108 H (98-107) mmol/L BUN 22 H (7-17) mg/dL Creatinine 1.19 H (0.52-1.04) mg/dL Troponin I 0.126 H* 0.128 H* (0.000-0.034) ng/mL Triglycerides 251 H (<150) mg/dL Cholesterol 218 H (<200) mg/dL LDL Cholesterol, Calc 120 H (0-99) mg/dL 06/23/18 Range/Units 07:04 Hgb 10.5 L (11.4-16.0) gm/dL Hct 33.6 L (34.0-46.0) % RDW 16.3 H (11.5-15.5) % Chloride (98-107) mmol/L BUN (7-17) mg/dL Creatinine (0.52-1.04) mg/dL Troponin I (0.000-0.034) ng/mL Triglycerides (<150) mg/dL Cholesterol (<200) mg/dL LDL Cholesterol, Calc (0-99) mg/dL Comments: ECHO report reviewed skull xray report reviewed Chest x-ray: report reviewed Assessment and Plan (1) Hypotension Narrative/Plan: This is likely multifactorial, due to adrenal insufficiency, as well as intravascular volume depletion ( The pt likely has increased fluid losses as she is recovering from MEHDI)She has responded well to IV hydraation. Case d/w Nephrology. They will start the pt on Midodrine or Florinef for BP support. Going forward , her steroid dose will be much less than what she has gotten so far ( 40 mg Dex /wk) which will hopefully lead to normalisation of pituitary - adrenal axis. A cardiac cause is unlikely as her troponin elevation was quite mild. She likely has light chain deposition in the myocardium, but EF is normal Current Visit: Yes Status: Acute Code(s): I95.9 - HYPOTENSION, UNSPECIFIED SNOMED Code(s): 29640127 (2) Multiple myeloma Narrative/Plan: Diagnostic and therapeutic circumstances as described. The pt has had initial therapy with bolus decadron to retard her aggressive presentation, and has responded clinically. She will start induction therapy with the RVD regimen next week. - Check light chain levels Current Visit: Yes Status: Acute Code(s): C90.00 - MULTIPLE MYELOMA NOT HAVING ACHIEVED REMISSION SNOMED Code(s): 860766886 (3) Acute kidney injury Narrative/Plan: Due to light chain deposition secondary to her MM. She has responded to MM therapy, with improvement in Cr despite no HD for 2 wks. Continue to monitor Cr Current Visit: No Status: Acute Code(s): N17.9 - ACUTE KIDNEY FAILURE, UNSPECIFIED SNOMED Code(s): 50362717 (4) Elevated troponin Narrative/Plan: This is very mild and stable. Pt has been seen by cardiology. Agree with conse rvative management , with plan for stress test as outpt. It is possible that the mild , stable troponin elevation is due to light chain deposition in the myocardium. However, in that case, the management would be treatment of the myeloma , which is ongoing anyway. In addition EF is maintained and there is no wall motion abnormality Current Visit: No Status: Acute Code(s): R74.8 - ABNORMAL LEVELS OF OTHER SERUM ENZYMES SNOMED Code(s): 867945377
[2018-06-24 04:37] LABS: Anisocytosis Slight; Basophils # (A) 0.1 k/uL (0-0.2); Basophils % (A) 1 %; Eosinophils # (A) 0.2 k/uL (0-0.7); Eosinophils % (A) 2 %; HCT 30.3 % (34.0-46.0); HGB 9.8 gm/dL (11.4-16.0); Lymphocytes # (A) 2.5 k/uL (1.0-4.8); Lymphocytes % (A) 22 %; MCH 27.8 pg (25.0-35.0); MCHC 32.3 g/dL (31.0-37.0); MCV 86.1 fL (80.0-100.0); Mean Platelet Volume 6.8; Monocytes # (A) 1.1 k/uL (0-1.0); Monocytes % (A) 10 %; Neutrophils # (A) 7.1 k/uL (1.3-7.7); Neutrophils % (A) 62 %; Platelet Count 375 k/uL (150-450); RBC 3.52 m/uL (3.80-5.40); RDW 16.2 % (11.5-15.5); WBC 11.5 k/uL (3.8-10.6)
[2018-06-24] MEDS: ATORVASTATIN 40 MG TAB PO SCH (08:11)
[2018-06-24] MEDS: ACETAMINOPHEN TAB 325 MG TAB PO PRN (08:11)
[2018-06-24] MEDS: ASPIRIN 325 MG TAB PO SCH (08:11)
[2018-06-24] MEDS: DOCUSATE 100 MG CAP PO SCH ×2 (08:15→09:25)
[2018-06-24] MEDS ORDERED: MIDODRINE 5 MG TAB PO SCH (08:30)
[2018-06-24] MEDS: SODIUM CHLORIDE 0.9% 1,000 ML IV SCH (09:11)
--- NOTE | 2018-06-24 11:39 | P.PN ---
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 For the last 2 days, she has been feeling dizzy and lightheaded. Her blood pressure at her [employer] payroll consultant office was in the 80s and 90s. The patient did not have any symptoms of chest pain or chest discomfort, difficulty breathing, feeling of heart racing or fluttering, or syncope. The cardiac enzymes were checked and came in to be slightly abnormal but the patient does not have normal creatinine. The EKG showed sinus rhythm with old anterior HI. The patient does not have any diabetes, hypertension, or dyslipidemia. She does not smoke. There is no family history of coronary artery disease.Giving the abnormal kidney function and the trending of creatinine down, we would recommend a conservative medical approach at this point. Echocardiogram with Doppler study was performed which revealed a normal left ventricular systolic function, AST is noted, moderate pericardial effusion. Patient had an echocardiogram with Doppler study performed in May which showed a trivial pericardial effusion at that time. From our perspective she may be able to be discharged home today on current medications including midodrine, her blood pressure this morning around 100 systolic. Follow-up appointment with Dr. Max in the office, outpatient stress test an outpatient MRI of the heart. Objective - Vital Signs Vital signs: Vital Signs Temp 97.0 F L 06/24/18 08:00 Pulse 92 06/24/18 08:00 Resp 16 06/24/18 08:00 BP 102/51 06/24/18 08:00 Pulse Ox 96 06/24/18 09:19 Intake & Output 06/23/18 06/24/18 06/24/18 18:59 06:59 18:59 Intake Total 709.587 202.344 180 Balance 709.587 202.344 180 Weight 71.1 kg 72.2 kg Intake: Intake, IV Titration 169.587 202.344 Amount Heparin Sod,Pork in 0.45% 169.587 202.344 NaCl 25,000 unit In 0.45 % NaCl 1 250ml.bag @ 12 UNITS/KG/HR 8.709 mls/hr IV .Q24H [facility] Rx#: [id number] Oral 540 180 Other: Voiding Method Toilet # Voids 2 1 1 - Exam PHYSICAL EXAMINATION: GENERAL: 57-year-old female in no acute distress at the time of my examination HEENT: Head is atraumatic, normocephalic. Pupils equal, round. Sclera anicteric. Conjunctiva are clear. Mucous membranes of the mouth are moist. Neck is supple. There is no elevated jugular venous pressure. No carotid bruit is heard. HEART EXAMINATION: Heart S1, S2 normal. No murmur or gallop heard. CHEST EXAMINATION: Lungs are clear to auscultation and precussion. No chest wall tenderness is noted on palpation or with deep breathing. ABDOMEN: Soft, nontender. Bowel sounds are heard. No organomegaly noted. EXTREMITIES: 2+ peripheral pulses with no evidence of peripheral edema and no calf tenderness noted. NEUROLOGIC patient is awake, alert and oriented 3. . - Labs CBC & Chem 7: 06/24/18 04:00 06/23/18 07:04 Labs: Abnormal Lab Results - Last 24 Hours (Table) 06/23/18 06/24/18 06/24/18 Range/Units 21:20 04:00 04:00 WBC 11.5 H (3.8-10.6) k/uL RBC 3.52 L (3.80-5.40) m/uL Hgb 9.8 L (11.4-16.0) gm/dL Hct 30.3 L (34.0-46.0) % RDW 16.2 H (11.5-15.5) % Monocytes # 1.1 H (0-1.0) k/uL APTT 31.9 H 37.0 H (22.0-30.0) sec Assessment and Plan Plan: Assessment and plan #1 chronic kidney disease #2 multiple myeloma #3 moderate pericardial effusion, normal LV function, ASD #4 orthostatic hypotension Plan From cardiology's perspective, patient may be able to be discharged home today, we would recommend a follow-up appointment with Dr. Max in the office, outpatient stress testing, outpatient cardiac MRI. DNP note has been reviewed, I agree with a documented findings and plan of care. Patient was seen and examined.
[2018-06-24 11:54] LABS: Calcium 8.7 mg/dL (8.4-10.2); Potassium 4.3 mmol/L (3.5-5.1)
[2018-06-24 12:00] VITALS: PULSE 87; RESP 18; TEMP 97.4
[2018-06-24] MEDS ORDERED: POLYETHYLENE GLYCOL 3350 17 GM POWD.PACK PO SCH (13:45)
[2018-06-24 14:32] VITALS: BP 120/71
--- NOTE | 2018-06-24 15:13 | P.DS ---
Providers Date of admission: 06/22/18 14:30 Expected date of discharge: 06/24/18 Attending physician: Kimberly Wetson MD Consults: 06/22/18 14:20 Consult Physician Urgent Consulting Provider: Jimi Pizarro Consult Reason/Comments: NSTEMI Do you want consulting provider notified?: Yes 06/22/18 19:14 Consult Physician Routine Consulting Provider: Iraj Munguia Consult Reason/Comments: Acute renal failure Do you want consulting provider notified?: Yes Consult Physician Urgent Consulting Provider: Pb Hernandez Consult Reason/Comments: Multiple myeloma Do you want consulting provider notified?: Yes Primary care physician: [facility] Course: Discharge Diagnosis: Orthostatic hypotension Constipation Elevated troponin-not diagnostic of NSTEMI 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 In the ER she underwent an extensive evaluation. She was found to be hypotensive and was started on IV fluids. Patient had been on Decadron 40 mg daily for 4 days and stop the treatment approximately 4 days prior to admission. She has been off dialysis for approximately 2 weeks prior to admission. In the ER she was found have an elevated white blood cell count at 14, her troponin was elevated at 0.122 and remained flat. Cardiology was consulted. She underwent an echocardiogram which showed preserved ejection fraction, moderate pericardial effusion, possible infiltrative cardiomyopathy. They recommended outpatient stress test and cardiac MRI. She did have some orthostatic hypotension and nephrology started her on Midrin. This corrected her hypotension she is feeling back to baseline. She been up and ambulating in hallways. She is determined stable for discharge home. She'll follow-up with Dr. Espinosa in 1-2 days, Dr. Denton next week, Dr. Pizarro in 1 week to make arrangements for stress testing and outpatient cardiac MRI. She will maintain on Midrin 5 mg twice daily. She's also been struggling with constipation and Colace has not been effective. I have instructed her to start on MiraLAX regiment. She did have one enema during hospitalization which resulted in a small bowel movement. Patient seen and examined at bedside. Denies any chest pain, shortness of breath, nausea, or vomiting. She has been eating well at home. She's been up and ambulating without any dizziness. Vital signs reviewed and stable. General: non toxic, no distress, appears at stated age Derm: warm, dry Head: atraumatic, normocephalic, symmetric Eyes: EOMI, no lid lag, anicteric sclera Mouth: no lip lesion, mucus membranes moist Cardiovascular: S1S2 reg, no murmur, positive posterior tibial pulse bilateral, Lungs: CTA bilateral, no rhonchi, no rales , no accessory muscle use Abdominal: soft, nontender to palpation, no guarding, no appreciable organomegaly Ext: no gross muscle atrophy, no edema, no contractures Neuro: CN II-XI grossly intact, no focal neuro deficits Psych: Alert, oriented, appropriate affect A total of 35 minutes of time were spent preparing this complex discharge summary . Pertinent Studies: Echocardiogram-ejection fraction 50-55%, infiltrative disease, moderate pericardial effusion CT soft tissue neck-normal cervical soft tissue exam Skull x-ray-no evidence of multiple myeloma Patient Condition at Discharge: Fair Plan - Discharge Summary Discharge Rx Participant: No New Discharge Prescriptions: New Atorvastatin [Lipitor] 40 mg PO DAILY #30 tab Polyethylene Glycol 3350 [Miralax] 17 gm PO DAILY powd.pack Midodrine [ProAmatine] 5 mg PO AC-BID #60 tab Continue Aspirin [Adult Low Dose Aspirin EC] 81 mg PO DAILY Docusate [Colace] 200 mg PO DAILY Discharge Medication List Aspirin [Adult Low Dose Aspirin EC] 81 mg PO DAILY 03/08/16 [History] Docusate [Colace] 200 mg PO DAILY 06/22/18 [History] Atorvastatin [Lipitor] 40 mg PO DAILY #30 tab 06/24/18 [Rx] Midodrine [ProAmatine] 5 mg PO AC-BID #60 tab 06/24/18 [Rx] Polyethylene Glycol 3350 [Miralax] 17 gm PO DAILY powd.pack 06/24/18 [Rx] Follow up Appointment(s)/Referral(s): Pb Hernandez MD [STAFF PHYSICIAN] - 1 Week Jimi Pizarro MD [STAFF PHYSICIAN] - 1 Week (Please call office and make follow up appointment) [facility] MD [Primary Care Provider] - 1-2 days (Please call and make follow up appointment) Patient Instructions/Handouts: Hypotension (DC) Activity/Diet/Wound Care/Special Instructions: Please return to the Emergency Department if symptoms worsen or any other concerns.
--- NOTE | 2018-06-24 15:34 | PN ---
PROGRESS NOTE Patient is seen for followup for acute kidney injury. The patient was hemodialysis dependent for a short period of time. Her renal function has improved and she is currently off of dialysis. The patient was admitted to the hospital with hypotension. Her troponin was borderline positive. EKG also showed some small Q-waves. Therefore, patient will need further workup which can be done as outpatient. At this time, she is stable for discharge from Nephrology standpoint. Her blood pressure has been about 100 to 130 mmHg systolic. However, this morning when patient was seen, her standing blood pressure did drop down to 96 mmHg. I have added midodrine and if she is not hypotensive anymore and she feels well, she could be discharged. We will continue to hold off on hemodialysis for now. PHYSICAL EXAMINATION: On examination this morning, blood pressure was 96/57 sitting, heart rate 92 per minute. She is afebrile. EXAMINATION OF THE HEART: S1, S2. EXAMINATION OF THE LUNGS: Bilateral breath sounds are heard. Abdomen is soft, nontender. Examination of the lower extremities shows no significant edema. RESEARCH ASSISTANT PROFESSOR exam is grossly intact. LABS: Labs show sodium 141, potassium 4.3, chloride 108, CO2 is 29, BUN 20, serum creatinine 1.2, hemoglobin 9.8 g/dL. ASSESSMENT: 1. Acute kidney injury, acute tubular necrosis and an element of cast nephropathy as well on initial admission, currently improved. Patient is off of dialysis. She continues to have good urine output. Serum creatinine is slightly higher today secondary to hypotension. She has been maintained on IV fluids, which we will continue. There are no nephrotoxic agents on board. I will add midodrine. Patient will have her dialysis catheter flushed as outpatient next week post discharge and we will likely remove the catheter at the end of next week depending on her renal function. 2. 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 She did receive bolus steroids. 3. Hypotension. Add midodrine. I will hold off on steroids for now. There was some infiltration of the cardiac muscle noted as well on the echocardiogram for which patient will need a cardiac MRI which can be done as an outpatient. 4. Autonomic neuropathy can be associated with the amyloidosis/multiple myeloma. PLAN: Add midodrine. The patient can be discharged from nephrology standpoint and follow up as outpatient with Cardiology for possible cardiac MRI to rule out infiltrative cardiomyopathy. MMODL / IJN: [id number] /
== END 2018-06-24 15:33 | disposition home or self-care (01) | DRG 312 ==
LOC: EC 11:32 → 3SCARD 14:30
PROVIDERS: ADMIT Family Medicine; ATTEND Family Medicine
DX: I95.1 Orthostatic hypotension (principal); N17.0 Acute kidney failure with tubular necrosis; C90.00 Multiple myeloma not having achieved remission; I31.3 Pericardial effusion (noninflammatory); E27.40 Unspecified adrenocortical insufficiency; E85.81 Light chain (AL) amyloidosis; I42.9 Cardiomyopathy, unspecified; Q21.1 Atrial septal defect; D47.2 Monoclonal gammopathy; J32.1 Chronic frontal sinusitis; G90.9 Disorder of the autonomic nervous system, unspecified; E86.1 Hypovolemia; M54.2 Cervicalgia; D72.829 Elevated white blood cell count, unspecified; I12.9 Hypertensive chronic kidney disease with stage 1 through stage 4 chronic kidney disease, or unspecified chronic kidney disease; N18.9 Chronic kidney disease, unspecified; K59.00 Constipation, unspecified; Z79.82 Long term (current) use of aspirin; Z79.899 Other long term (current) drug therapy; Z98.84 Bariatric surgery status; Z98.890 Other specified postprocedural states; Z98.42 Cataract extraction status, left eye; Z98.41 Cataract extraction status, right eye
CPT/HCPCS: 36415; 70250; 70360; 71046; 80048; 80053; 80061; 81001; 83605; 83735; 83880; 83883; 84484; 85025; 85610; 85730; 93005; 93306; 94760; 96361; 96365; 96376; 99291

== ENCOUNTER 2018-07-07 02:18 | Observation (INO) | payer BC, OTHER ==
[2018-07-07] MEDS ORDERED: HYDROmorphone 1 MG/ML 1 ML SYRINGE IVP STA (03:25)
[2018-07-07 04:42] LABS: Anisocytosis Slight; Basophils % (A) 0 %; Eosinophils # (A) 0.1 k/uL (0-0.7); Eosinophils % (A) 0 %; HCT 28.3 % (34.0-46.0); HGB 9.3 gm/dL (11.4-16.0); Lymphocytes # (A) 2.8 k/uL (1.0-4.8); Lymphocytes % (A) 20 %; MCH 27.6 pg (25.0-35.0); MCHC 33.1 g/dL (31.0-37.0); MCV 83.4 fL (80.0-100.0); Mean Platelet Volume 6.7; Monocytes # (A) 1.3 k/uL (0-1.0); Monocytes % (A) 9 %; Neutrophils # (A) 9.4 k/uL (1.3-7.7); Neutrophils % (A) 67 %; Platelet Count 367 k/uL (150-450); RBC 3.39 m/uL (3.80-5.40); RDW 16.6 % (11.5-15.5); WBC 14.1 k/uL (3.8-10.6)
--- NOTE | 2018-07-07 04:43 | CT ---
EXAM: CT Chest Without Intravenous Contrast CLINICAL HISTORY: ITS.REASON CT Reason: Pain TECHNIQUE: Axial computed tomography images of the chest without intravenous contrast. CTDI is 5.7 mGy and DLP is 243 mGy-cm. This CT exam was performed using one or more of the following dose reduction techniques: automated exposure control, adjustment of the mA and/or kV according to patient size, and/or use of iterative reconstruction technique. COMPARISON: No relevant prior studies available. FINDINGS: Lungs: No mass. Subsegmental atelectasis in the right lower lobe. Pleural space: Trace bilateral pleural effusions. Heart: Enlarged heart size without pericardial effusion. Bones/joints: No acute fracture. Soft tissues: Gastric banding. Vasculature: Unremarkable. No thoracic aortic aneurysm. Lymph nodes: No enlarged lymph nodes. IMPRESSION: Trace bilateral pleural effusions. Right lower lobe subsegmental atelectasis. Mild cardiomegaly.
[2018-07-07 04:52] LABS: Albumin 3.2 g/dL (3.5-5.0); Calcium 9.2 mg/dL (8.4-10.2); Magnesium 1.7 mg/dL (1.6-2.3); Potassium 3.9 mmol/L (3.5-5.1); Total Bilirubin 0.4 mg/dL (0.2-1.3); Total Protein 5.8 g/dL (6.3-8.2)
[2018-07-07 04:55] LABS: Partial Thromboplastin Time 22.3 sec (22.0-30.0); Prothrombin Time 10.5 sec (9.0-12.0)
[2018-07-07 04:59] LABS: D-Dimer 1.29 mg/L FEU (<0.60)
[2018-07-07] MEDS ORDERED: ENOXAPARIN 80 MG/0.8 ML SYRINGE SQ STA (05:41)
--- NOTE | 2018-07-07 06:02 | ED ---
Back Pain HPI - General Chief Complaint: Back Pain/Injury Stated Complaint: Back Pain Hx Myeloma Time Seen by Provider: 07/07/18 02:58 Source: patient Limitations: no limitations - History of Present Illness Initial Comments: This patient is a 57-year-old woman presenting with complaint of right upper back pain that is been coming on over the course the past night. Patient does report that she had a temporary dialysis catheter in the right upper chest wall that was removed prior to the onset of pain. Patient describes as a constant, aching pain, now becoming severe. She indicates the area over the right scapula. She is denying chest pain, dyspnea, diaphoresis, nausea or vomiting. She does note there was a recent diagnosis of multiple myeloma. MD Complaint: back pain Onset/Timin -: days(s) Similar Symptoms Previously: No Place: home Severity: severe Quality: aching Consistency: constant Improves With: none Worsens With: deep breaths/cough Context: other Associated Symptoms: denies other symptoms - Related Data Home Medications Medication Instructions Recorded Confirmed Aspirin [Adult Low Dose Aspirin EC] 81 mg PO DAILY 03/08/16 07/12/18 Acyclovir 400 mg PO BID 07/07/18 07/12/18 Dexamethasone 40 mg PO MO 07/07/18 07/12/18 Ergocalciferol (Vitamin D2) 50,000 unit PO WE 07/07/18 07/12/18 [Vitamin D2] Magnesium Oxide 400 mg PO DAILY 07/07/18 07/12/18 Pantoprazole [Protonix] 40 mg PO HS PRN 07/07/18 07/12/18 Sulfamethox-Tmp 800-160Mg [Bactrim 1 tab PO MOWEFR 07/07/18 07/12/18 DS 800-160 mg] Previous Rx's Medication Instructions Recorded Atorvastatin [Lipitor] 40 mg PO DAILY #30 tab 06/24/18 Midodrine [ProAmatine] 5 mg PO AC-BID #60 tab 06/24/18 Gabapentin [Neurontin] 200 mg PO BID #30 cap 07/07/18 Acetaminophen-Codeine 300-30mg 2 each PO Q6H PRN #20 tablet 07/12/18 [Tylenol #3] Acetaminophen-Codeine 300-30mg 2 each PO Q6H PRN #20 tablet 07/12/18 [Tylenol #3] Allergies Allergy/AdvReac Type Severity Reaction Status Date / Time No Known Allergies Allergy Verified 07/12/18 14:32 Review of Systems ROS Statement: Those systems with pertinent positive or pertinent negative responses have been documented in the HPI. ROS Other: All systems not noted in ROS Statement are negative. Constitutional: Denies: fever, chills Respiratory: Denies: cough, dyspnea Cardiovascular: Reports: chest pain. Denies: palpitations, orthopnea, edema, syncope Gastrointestinal: Denies: abdominal pain, nausea, vomiting Genitourinary: Denies: dysuria, hematuria Skin: Denies: rash Neurological: Denies: headache, weakness, numbness Past Medical History Past Medical History: Cancer Additional Past Medical History / Comment(s): Blood clot in Left eye (origin unknown)...blood work/dx tests such as carotid u/s performed to determine etiology but remains unknown, multiple myloma, acute kindney injury History of Any Multi-Drug Resistant Organisms: None Reported Past Surgical History: Bariatric Surgery, Orthopedic Surgery, Tonsillectomy Additional Past Surgical History / Comment(s): Right knee meniscus repair (Feb 2016), Bariatric Lap band May 2009, bilateral cataract surgery (November 2013), Tonsillectomy , lin carpal tunnel, dialysis port right side removed 06/2018 Past Anesthesia/Blood Transfusion Reactions: No Reported Reaction Additional Past Anesthesia/Blood Transfusion Reaction / Comment(s): No hx of blood transfusion Past Psychological History: No Psychological Hx Reported Smoking Status: Never smoker Past Alcohol Use History: None Reported Past Drug Use History: None Reported - Past Family History Father Family Medical History: Unable to Obtain Additional Family Medical History / Comment(s): does not know who her biologic father is Mother Additional Family Medical History / Comment(s): no hx of cancer or heart disease. Reports no family hx of cancer or heart disease General Exam Limitations: no limitations General appearance: alert, in no apparent distress Head exam: Present: atraumatic, normocephalic Eye exam: Present: normal appearance. Absent: scleral icterus, conjunctival injection ENT exam: Present: normal oropharynx Neck exam: Present: normal inspection Respiratory exam: Present: normal lung sounds bilaterally. Absent: respiratory distress, wheezes, rales, rhonchi, stridor Cardiovascular Exam: Present: regular rate, normal rhythm, normal heart sounds. Absent: systolic murmur, diastolic murmur, rubs, gallop GI/Abdominal exam: Present: soft. Absent: distended, tenderness, guarding, re bound, rigid, mass Extremities exam: Present: normal inspection, normal capillary refill. Absent: pedal edema, calf tenderness Back exam: Present: normal inspection. Absent: CVA tenderness (R), CVA tenderness (L) Neurological exam: Present: alert Skin exam: Present: warm, dry, intact, normal color. Absent: rash Course Vital Signs 07/07/18 07/07/18 07/07/18 02:34 03:57 05:59 Temperature 98.1 F Pulse Rate 101 H 96 100 Respiratory 20 18 18 Rate Blood Pressure 100/64 103/60 109/64 O2 Sat by Pulse 99 98 96 Oximetry Medical Decision Making - Medical Decision Making Patient's 57-year-old woman with right upper back pain the initial CT did not reveal etiology of the pain. Given the recent multiple myeloma diagnosis, will admit patient to have VQ scan to rule out pulmonary embolism, as the patient unable to have computed tomography scan with dye load due to recent kidney injury. - Lab Data Result diagrams: 07/07/18 03:45 07/07/18 03:45 Lab Results 07/07/18 07/07/18 07/07/18 Range/Units 03:45 03:45 03:45 WBC 14.1 H (3.8-10.6) k/uL RBC 3.39 L (3.80-5.40) m/uL Hgb 9.3 L (11.4-16.0) gm/dL Hct 28.3 L (34.0-46.0) % MCV 83.4 (80.0-100.0) fL MCH 27.6 (25.0-35.0) pg MCHC 33.1 (31.0-37.0) g/dL RDW 16.6 H (11.5-15.5) % Plt Count 367 (150-450) k/uL Neutrophils % 67 % Lymphocytes % 20 % Monocytes % 9 % Eosinophils % 0 % Basophils % 0 % Neutrophils # 9.4 H (1.3-7.7) k/uL Lymphocytes # 2.8 (1.0-4.8) k/uL Monocytes # 1.3 H (0-1.0) k/uL Eosinophils # 0.1 (0-0.7) k/uL Basophils # 0.0 (0-0.2) k/uL Anisocytosis Slight PT 10.5 (9.0-12.0) sec INR 1.0 (<1.2) APTT 22.3 (22.0-30.0) sec D-Dimer 1.29 H (<0.60) mg/L FEU Sodium 133 L (137-145) mmol/L Potassium 3.9 (3.5-5.1) mmol/L Chloride 101 (98-107) mmol/L Carbon Dioxide 23 (22-30) mmol/L Anion Gap 9 mmol/L BUN 21 H (7-17) mg/dL Creatinine 1.17 H (0.52-1.04) mg/dL Est GFR (CKD-EPI)AfAm 61 (>60 ml/min/1.73 sqM) Est GFR (CKD-EPI)NonAf 53 (>60 ml/min/1.73 sqM) Glucose 83 (74-99) mg/dL Calcium 9.2 (8.4-10.2) mg/dL Magnesium 1.7 (1.6-2.3) mg/dL Total Bilirubin 0.4 (0.2-1.3) mg/dL AST 24 (14-36) U/L ALT 24 (9-52) U/L Alkaline Phosphatase 157 H (38-126) U/L Troponin I (0.000-0.034) ng/mL Total Protein 5.8 L (6.3-8.2) g/dL Albumin 3.2 L (3.5-5.0) g/dL 07/07/18 Range/Units 03:45 WBC (3.8-10.6) k/uL RBC (3.80-5.40) m/uL Hgb (11.4-16.0) gm/dL Hct (34.0-46.0) % MCV (80.0-100.0) fL MCH (25.0-35.0) pg MCHC (31.0-37.0) g/dL RDW (11.5-15.5) % Plt Count (150-450) k/uL Neutrophils % % Lymphocytes % % Monocytes % % Eosinophils % % Basophils % % Neutrophils # (1.3-7.7) k/uL Lymphocytes # (1.0-4.8) k/uL Monocytes # (0-1.0) k/uL Eosinophils # (0-0.7) k/uL Basophils # (0-0.2) k/uL Anisocytosis PT (9.0-12.0) sec INR (<1.2) APTT (22.0-30.0) sec D-Dimer (<0.60) mg/L FEU Sodium (137-145) mmol/L Potassium (3.5-5.1) mmol/L Chloride (98-107) mmol/L Carbon Dioxide (22-30) mmol/L Anion Gap mmol/L BUN (7-17) mg/dL Creatinine (0.52-1.04) mg/dL Est GFR (CKD-EPI)AfAm (>60 ml/min/1.73 sqM) Est GFR (CKD-EPI)NonAf (>60 ml/min/1.73 sqM) Glucose (74-99) mg/dL Calcium (8.4-10.2) mg/dL Magnesium (1.6-2.3) mg/dL Total Bilirubin (0.2-1.3) mg/dL AST (14-36) U/L ALT (9-52) U/L Alkaline Phosphatase (38-126) U/L Troponin I 0.127 H* (0.000-0.034) ng/mL Total Protein (6.3-8.2) g/dL Albumin (3.5-5.0) g/dL - EKG Data -: EKG Interpreted by Sc EKG shows normal: sinus rhythm, axis (Rightward axis), intervals (VT interval 152 ms, QRS duration 80 ms, both normal. QTC 5 ms, prolonged.) Rate: tachycardia (Rate 11 bpm) Interpretation: other (Possible old anterior infarct) Disposition Clinical Impression: Shoulder pain, acute Disposition: ADMITTED IP TO THIS [facility] Condition: Stable
[2018-07-07] MEDS ORDERED: HYDROcodone/APAP 5-325MG 1 EACH TAB PO PRN ×2 (06:21→11:39)
[2018-07-07] MEDS ORDERED: HYDROmorphone 1 MG/ML 1 ML SYRINGE IVP PRN (06:21)
[2018-07-07] MEDS ORDERED: NALOXONE 0.4 MG/ML 1 ML VIAL IV PRN (06:21)
[2018-07-07] MEDS ORDERED: ONDANSETRON 4 MG/2 ML VIAL IVP PRN (06:21)
[2018-07-07] MEDS ORDERED: SODIUM CHLORIDE 0.9% 1,000 ML IV SCH (06:30)
[2018-07-07] MEDS ORDERED: DOCUSATE 100 MG CAP PO PRN (07:09)
--- NOTE | 2018-07-07 07:12 | P.HPIM ---
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 The patient reports that she had her R permacath removed on 07/05/18 late evening and on the morning of 07/07, she had gradually worsening pain of the R upper back, w/ some radiation to the R arm and R chest, w/ no associated SOB, palpitations, nausea, vomiting, or diaphoresis. She further denied cough, fever, chills, darrhea, or abdominal pain. Denied LE pain, swelling, headache, or dizziness. The patient underwent an extensive evaluation in the ED w/ CT Chest without contrast showing mild cardiomegaly and trace pleural effusions. Laboratory evaluation revealed Cr 1.17, D-dimer 1.29, WBC 14.1, Hgb 9.3, Troponin 0.127, and BUN 21. She is being admitted for further management of the back/chest pain. Review of Systems Pertinent positives and negatives as discussed in HPI, a complete review of systems was performed and all other systems are negative. Past Medical History Past Medical History: Cancer Additional Past Medical History / Comment(s): Blood clot in Left eye (origin unknown)...blood work/dx tests such as carotid u/s performed to determine etiology but remains unknown, multiple myloma, acute kindney injury History of Any Multi-Drug Resistant Organisms: None Reported Past Surgical History: Bariatric Surgery, Orthopedic Surgery, Tonsillectomy Additional Past Surgical History / Comment(s): Right knee meniscus repair (Feb 2016), Bariatric Lap band May 2009, bilateral cataract surgery (November 2013), Tonsillectomy 1959's, lin carpal tunnel, dialysis port right side removed 06/2018 Past Anesthesia/Blood Transfusion Reactions: No Reported Reaction Additional Past Anesthesia/Blood Transfusion Reaction / Comment(s): No hx of blood transfusion Past Psychological History: No Psychological Hx Reported Smoking Status: Never smoker Past Alcohol Use History: None Reported Past Drug Use History: None Reported - Past Family History Father Family Medical History: Unable to Obtain Additional Family Medical History / Comment(s): does not know who her biologic father is Mother Additional Family Medical History / Comment(s): no hx of cancer or heart disease. Reports no family hx of cancer or heart disease Medications and Allergies Home Medications Medication Instructions Recorded Confirmed Type Aspirin [Adult Low Dose Aspirin EC] 81 mg PO DAILY 03/08/16 06/22/18 History Docusate [Colace] 200 mg PO DAILY 06/22/18 06/22/18 History Atorvastatin [Lipitor] 40 mg PO DAILY #30 tab 06/24/18 Rx Midodrine [ProAmatine] 5 mg PO AC-BID #60 tab 06/24/18 Rx Polyethylene Glycol 3350 [Miralax] 17 gm PO DAILY powd.pack 06/24/18 Rx Allergies Allergy/AdvReac Type Severity Reaction Status Date / Time No Known Allergies Allergy Verified 07/07/18 02:38 Physical Exam Vitals: Vital Signs Temp Pulse Resp BP Pulse Ox 07/07/18 05:59 100 18 109/64 96 07/07/18 03:57 96 18 103/60 98 07/07/18 02:34 98.1 F 101 H 20 100/64 99 Intake and Output 07/06/18 07/06/18 07/07/18 14:59 22:59 06:59 Other: Weight 68.946 kg General: non toxic, no distress, appears at stated age, normal weight Derm: R upper chest stiches s/p removal of permacath, minimally tender, no erythema or warmth noted, warm, dry Head: atraumatic, normocephalic, symmetric Eyes: EOMI, no lid lag, anicteric sclera, pupils equal round reactive to light ENT: Nose and ears atraumatic, no thrush, no pharyngeal erythema Neck: No thyromegaly, no cervical lymphadenopathy, trachea midline, supple Mouth: no lip lesion, mucus membranes moist Cardiovascular: S1S2 reg, no murmur, positive posterior tibial pulse bilateral, minimal ankle edema lin, no calf tenderness, warmth, or erythema, capillary refill less than 2 seconds Lungs: Trace bibasilar rales, no rhonchi, no accessory muscle use Abdominal: soft, nontender to palpation, no guarding, no appreciable organomegaly, normal bowel sounds Ext: no gross muscle atrophy, muscle strength 5 out of 5 in all 4 extremities grossly, no contractures, R scapular prominence w/ tenderness and swelling Neuro: CN II-XI grossly intact, light touch intact all 4 extremities, finger to nose within normal limits, Psych: Alert, oriented, appropriate affect Results CBC & Chem 7: 07/07/18 03:45 07/07/18 03:45 Labs: Abnormal Lab Results - Last 24 Hours (Table) 07/07/18 07/07/18 07/07/18 Range/Units 03:45 03:45 03:45 WBC 14.1 H (3.8-10.6) k/uL RBC 3.39 L (3.80-5.40) m/uL Hgb 9.3 L (11.4-16.0) gm/dL Hct 28.3 L (34.0-46.0) % RDW 16.6 H (11.5-15.5) % Neutrophils # 9.4 H (1.3-7.7) k/uL Monocytes # 1.3 H (0-1.0) k/uL D-Dimer 1.29 H (<0.60) mg/L FEU Sodium 133 L (137-145) mmol/L BUN 21 H (7-17) mg/dL Creatinine 1.17 H (0.52-1.04) mg/dL Alkaline Phosphatase 157 H (38-126) U/L Troponin I (0.000-0.034) ng/mL Total Protein 5.8 L (6.3-8.2) g/dL Albumin 3.2 L (3.5-5.0) g/dL 07/07/18 Range/Units 03:45 WBC (3.8-10.6) k/uL RBC (3.80-5.40) m/uL Hgb (11.4-16.0) gm/dL Hct (34.0-46.0) % RDW (11.5-15.5) % Neutrophils # (1.3-7.7) k/uL Monocytes # (0-1.0) k/uL D-Dimer (<0.60) mg/L FEU Sodium (137-145) mmol/L BUN (7-17) mg/dL Creatinine (0.52-1.04) mg/dL Alkaline Phosphatase (38-126) U/L Troponin I 0.127 H* (0.000-0.034) ng/mL Total Protein (6.3-8.2) g/dL Albumin (3.5-5.0) g/dL Assessment and Plan Plan: R upper back tenderness and swelling, 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 CODE STATUS: Full-Code Discussed with: Patient, Anticipated discharge date: 07/09/[address]: Home A total of 45 minutes was spent on the care of this complex patient more than 50% of the time was spent in counseling and care coordination.
[2018-07-07 07:59] VITALS: RESP 16; BMI 24.5
[2018-07-07] MEDS ORDERED: FAMOTIDINE 20 MG TAB PO SCH (09:00)
--- NOTE | 2018-07-07 09:31 | US ---
EXAMINATION TYPE: US venous doppler duplex UE BI DATE OF EXAM: 07/07/2018 COMPARISON: NONE CLINICAL HISTORY: rule out DVT . Dialysis graft removed from right chest 07/05/18. Pain right shoulde r, edema right upper back. IV right antecubital fossa SIDE PERFORMED: bilateral Right Arm: No evidence of DVT as visualized Left Arm: No evidence of DVT as visualized IMPRESSION: No evidence for DVT at this time.
--- NOTE | 2018-07-07 11:04 | NM ---
EXAMINATION TYPE: NM pul vent and perfuse DATE OF EXAM: 07/07/2018 COMPARISON: NONE HISTORY: R/O PE TECHNIQUE: Utilizing inhalation of 68.8 mCi Tc 99m DTPA aerosol and intravenous injection of 4.8 mCi of Tc 99m MAA, ventilation and perfusion images are acquired post injection in multiple projections. FINDINGS: Normal radiotracer distribution is noted in the lungs. There is no evidence of mismatched defects. IMPRESSION: Normal VQ scan
[2018-07-07] MEDS ORDERED: GABAPENTIN 100 MG CAP PO STA (11:45)
[2018-07-07 14:28] VITALS: TEMP 98.2
[2018-07-07] MEDS ORDERED: CYCLOBENZAPRINE 10 MG TAB PO PRN (17:18)
[2018-07-07 17:26] VITALS: BP 116/62; PULSE 103
[2018-07-07] MEDS ORDERED: ENOXAPARIN 80 MG/0.8 ML SYRINGE SQ SCH (18:30)
[2018-07-07] MEDS ORDERED: GABAPENTIN 100 MG CAP PO SCH (21:00)
--- NOTE | 2018-07-08 01:01 | P.CONS ---
History of Present Illness - Reason for Consult Consult date: 07/07/18 Right upper shoulder and chest wall pain. Myeloma - History of Present Illness The patient is a 57-year-old white female, fairly healthy at baseline, initially seen in consult in 06/02. She had presented with acute renal failure, with workup revealing markedly elevated lambda light chains in the serum. The patient had a bone marrow aspiration biopsy, as well as a kidney biopsy. She was found to have 40-50% involvement of the bone marrow with monoclonal lambda light chain restricted plasma cells, confirming multiple myeloma. Kidney biopsy also showed lambda light chain deposition. The patient was treated in patient with dialysis, and also received bolus Decadron 40 mg daily for 4 days on, 4 days off, 2 total. The patient was seen in the office last week, with a plan to start her on induction treatment for myeloma with Velcade, Revlimid and Decadron. The patient's renal function had actually shown improvement in the outpatient setting and she had been off dialysis since late 06/02 with continued improvement in creatinine. The patient Was admitted on 06/22/18 as she had developed hypotension after a blood draw,In the nephrology office, with blood pressure dropping into the 80s. She was also somewhat symptomatic. Blood pressure did not improve with oral fluids. She was therefore sent in to the emergency room. Labs showed a mildly elevated troponin in the 0.12-0.13 range where it has remained stable. The patient was admitted and started on IV fluids with fairly quick normalization of blood pressure. Echocardiogram showed normal ejection fraction and no wall motion abnormality but was suggestive of infiltration in the myocardium. However ejection fraction was maintained as noted. It was therefore felt that the mild troponin elevation was likely due 2 myocardial infiltration and not IA. The patient was subsequently discharged. She has not started definitive induction therapy for her myeloma with Velcade and Decadron, and is status post 2/4 treatments of Velcade in cycle 1. She was also supposed to get Revlimid, but this is on hold as initial test was positive at a low level (false positive) and is being repeated The patient had her dialysis catheter removed yesterday. He subsequently developed severe pain, 10/10, in the right upper chest and right shoulder/upper back. She stated that the right shoulder area appeared to be swollen. She therefore came into the emergency room. It is questionable if there was a pleuritic component to the pain. The patient subsequently had a VQ scan, and bilateral upper extremity Dopplers which were both negative for VTE. She was admitted for further management. CT chest showed no bony or soft tissue abnormality in the thorax. Troponin remains elevated in the 0.13 range, stable from before. Pain has improved significantly with pain medication. Consult was placed for further evaluation and recommendations Review of Systems Constitutional: Reports fatigue Eyes: denies blurred vision, denies pain Ears: deny: decreased hearing, ear discharge, tinnitus Ears, nose, mouth and throat: Denies headache, Denies sore throat Cardiovascular: Reports as per HPI, Reports decreased exercise tolerance Respiratory: Denies cough Gastrointestinal: Denies abdominal pain, Denies diarrhea, Denies nausea, Denies vomiting Genitourinary: Denies dysuria, Denies hematuria Menstruation: Reports cycle variable Musculoskeletal: Reports as per HPI, Reports arm numbness/tingling, Reports myalgias, Reports shooting arm pain Musculoskeletal: right: shoulder pain Integumentary: Denies pruritus, Denies rash Neurological: Denies numbness, Denies weakness Psychiatric: Reports anxiety Endocrine: Reports fatigue, Denies weight change Hematologic/Lymphatic: Reports as per HPI Past Medical History Past Medical History: Cancer Additional Past Medical History / Comment(s): Blood clot in Left eye (origin unknown)...blood work/dx tests such as carotid u/s performed to determine etiology but remains unknown, multiple myloma, acute kindney injury History of Any Multi-Drug Resistant Organisms: None Reported Past Surgical History: Bariatric Surgery, Orthopedic Surgery, Tonsillectomy Additional Past Surgical History / Comment(s): Right knee meniscus repair (Feb 2016), Bariatric Lap band May 2009, bilateral cataract surgery (November 2013), Tonsillectomy , lin carpal tunnel, dialysis port right side removed 06/2018 Past Anesthesia/Blood Transfusion Reactions: No Reported Reaction Additional Past Anesthesia/Blood Transfusion Reaction / Comm: No hx of blood transfusion Past Psychological History: No Psychological Hx Reported Smoking Status: Never smoker Past Alcohol Use History: None Reported Past Drug Use History: None Reported - Past Family History Father History Unknown: Yes Family Medical History: Unable to Obtain Additional Family Medical History / Comment(s): does not know who her biologic f ather is Mother Family Medical History: No Reported History Additional Family Medical History / Comment(s): no hx of cancer or heart disease. Reports no family hx of cancer or heart disease Medications and Allergies Home Medications Medication Instructions Recorded Confirmed Type Aspirin [Adult Low Dose Aspirin EC] 81 mg PO DAILY 03/08/16 07/07/18 History Atorvastatin [Lipitor] 40 mg PO DAILY #30 tab 06/24/18 07/07/18 Rx Midodrine [ProAmatine] 5 mg PO AC-BID #60 tab 06/24/18 07/07/18 Rx Acyclovir 400 mg PO BID 07/07/18 07/07/18 History Dexamethasone 40 mg PO MO 07/07/18 07/07/18 History Ergocalciferol (Vitamin D2) 50,000 unit PO WE 07/07/18 07/07/18 History [Vitamin D2] Gabapentin [Neurontin] 200 mg PO BID #30 cap 07/07/18 Rx Magnesium Oxide 400 mg PO DAILY 07/07/18 07/07/18 History Pantoprazole [Protonix] 40 mg PO HS PRN 07/07/18 07/07/18 History Sulfamethox-Tmp 800-160Mg [Bactrim 1 tab PO MOWEFR 07/07/18 07/07/18 History DS 800-160 mg] Allergies Allergy/AdvReac Type Severity Reaction Status Date / Time No Known Allergies Allergy Verified 07/07/18 07:21 Physical Exam Vitals: Vital Signs Temp Pulse Pulse Resp BP BP Pulse Ox 07/07/18 12:52 98.2 F 99 16 106/56 98 07/07/18 12:00 99 16 07/07/18 08:11 103 H 07/07/18 08:00 103 H 16 07/07/18 07:59 99.1 F 107 H 16 105/56 98 07/07/18 05:59 100 18 109/64 96 07/07/18 03:57 96 18 103/60 98 07/07/18 02:34 98.1 F 101 H 20 100/64 99 Intake and Output 07/07/18 07/07/18 07/07/18 06:59 14:59 22:59 Intake Total 320 200 Output Total 400 Balance 320 -200 Intake: Oral 320 200 Output: Urine 400 Other: Weight 68.946 kg 68.946 kg - Constitutional General appearance: no acute distress - EENT Eyes: EOMI, PERRLA ENT: hearing grossly normal, normal oropharynx - Neck Neck: no lymphadenopathy Thyroid: bilateral: normal size - Respiratory Respiratory: bilateral: CTA - Cardiovascular Rhythm: regular Heart sounds: normal: S1, S2 - Gastrointestinal General gastrointestinal: normal bowel sounds, soft - Integumentary Integumentary: normal - Neurologic Neurologic: CNII-XII intact - Musculoskeletal Right shoulder and neck muscles appear to be somewhat tight, with tenderness on palpation. Musculoskeletal: strength equal bilaterally - Psychiatric Psychiatric: A&O x's 3, appropriate affect Results CBC & Chem 7: 07/07/18 03:45 07/07/18 03:45 Labs: Abnormal Lab Results - Last 24 Hours (Table) 07/07/18 07/07/18 07/07/18 Range/Units 03:45 03:45 03:45 WBC 14.1 H (3.8-10.6) k/uL RBC 3.39 L (3.80-5.40) m/uL Hgb 9.3 L (11.4-16.0) gm/dL Hct 28.3 L (34.0-46.0) % RDW 16.6 H (11.5-15.5) % Neutrophils # 9.4 H (1.3-7.7) k/uL Monocytes # 1.3 H (0-1.0) k/uL D-Dimer 1.29 H (<0.60) mg/L FEU Sodium 133 L (137-145) mmol/L BUN 21 H (7-17) mg/dL Creatinine 1.17 H (0.52-1.04) mg/dL Alkaline Phosphatase 157 H (38-126) U/L Troponin I (0.000-0.034) ng/mL Total Protein 5.8 L (6.3-8.2) g/dL Albumin 3.2 L (3.5-5.0) g/dL 07/07/18 07/07/18 07/07/18 Range/Units 03:45 09:07 15:17 WBC (3.8-10.6) k/uL RBC (3.80-5.40) m/uL Hgb (11.4-16.0) gm/dL Hct (34.0-46.0) % RDW (11.5-15.5) % Neutrophils # (1.3-7.7) k/uL Monocytes # (0-1.0) k/uL D-Dimer (<0.60) mg/L FEU Sodium (137-145) mmol/L BUN (7-17) mg/dL Creatinine (0.52-1.04) mg/dL Alkaline Phosphatase (38-126) U/L Troponin I 0.127 H* 0.132 H* 0.110 H* (0.000-0.034) ng/mL Total Protein (6.3-8.2) g/dL Albumin (3.5-5.0) g/dL Comments: VQ scan report reviewed CT scan - chest: report reviewed Venous US: report reviewed Assessment and Plan (1) Shoulder pain, acute Narrative/Plan: This occurred soon after removal of her HD catheter, thus raising concern for multiple issues. 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 She is much improved with pain meds. Add muscle relaxant mmmmmm mmmmmmmmmmmmmmmmmmmmmmmmmmmmmmmmmmmmmmmmmmmmmmmmmmmmmmmmmmmmmmmmmmmmmmmmmmmmmmmm mmmmmmmmmmmmmmmmmmmm mmmmmmmmmmmmmmmmmmmmmmmmmmmmmmmmmmmmmmmmmmmmmmmmmmmmmmmmmmmmmmmmmmmmmmmmmmmmmmmm mmmmmmmmmmmmmmmmmmmm mmmmmmmmmmmmmmmmmmmmmmmmmmmmmmmmmmmmmmmmmmmmmmmmmmmmmmmmmmmmmmmmmmmmmmmmmmmmmmmm mmmmmmmmmmmmmmmmmmmm mmmmmmmmmmmmmmmmmmmmmmmmmmmmmmmmmmmmmmmmmmmmmmmmmmmmmmmmmmmmmmmmmmmmmmmmmmmmmmmm mmmmmmmmmmmmmmmmmmmm mmmmmmmmmmmmmmmmmmmmmmmmmmmmmmmmmmmmmmmmmmmmmmmmmmmmmmmmmmmmmmmmmmmmmmmmmmmmmmmm mmmmmmmmmmmmmmmmmmmm mmmmmmmmmmmmmmmmmmmmmmmmmmmmmmmmmmmmmmmmmmmmmmmmmmmmmmmmmmmmmmmmmmmmmmmmmmmmmmmm mmmmmmmmmmmmmmmmmmmm mmmmmmmmmmmmmmmmmmmmmmmmmmmmmmmmmmmmmmmmmmmmmmmmmmmmmmmmmmmmmmmmmmmmmmmmmmmmmmmm mmmmmmmmmmmmmmmmmmmm mmmmmmmmmmmmmmmmmmmmmmmmmmmmmmmmmmmmmmmmmmmmmmmmmmmmmmmmmmmmmmmmmmmmmmmmmmmmmmmm mmmmmmmmmmmmmmmmmmmm mmmmmmmmmmmmmmmmmmmmmmmmmmmmmmmmmmmmmmmmmmmmmmmmmmmmmmmmmmmmmmmmmmmmmmmmmmmmmmmm mmmmmmmmmmmmmmmmmmmm mmmmmmmmmmmmmmmmmmmmmmmmmmmmmmmmmmmmmmmmmmmmmmmmmmmmmmmmmmmmmmmmmmmmmmmmmmmmmmmm mmmmmmmmmmmmmmmmmmmm mmmmmmmmmmmmmmmmmmmmmmmmmmmmmmmmmmmmmmmmmmmmmmmmmmmmmmmmmmmmmmmmmmmmmmmmmmmmmmmm mmmmmmmmmmmmmmmmmmmm mmmmmmmmmmmmmmmmmmmmmmmmmmmmmmmmmmmmmmmmmmmmmmmmmmmmmmmmmmmmmmmmmmmmmmmmmmmmmmmm mmmmmmmmmmmmmmmmmmmm mmmmmmmmmmmmmmmmmmmmmmmmmmmmmmmmmmmmmmmmmmmmmmmmmmmmmmmmmmmmmmmmmmmmmmmmmmmmmmmm mmmmmmmmmmmmmmmmmmmm mmmmmmmmmmmmmmmmmmmmmmmmmmmmmmmmmmmmmmmmmmmmmmmmmmmmmmmmmmmmmmmmmmmmmmmmmmmmmmmm mmmmmmmmmmmmmmmmmmmm mmmmmmmmmmmmmmmmmmmmmmmmmmmmmmmmmmmmmmmmmmmmmmmmmmmmmmmmmmmmmmmmmmmmmmmmmmmmmmmm mmmmmmmmmmmmmmmmmmmm mmmmmmmmmmmmmmmmmmmmmmmmmmmmmmmmmmmmmmmmmmmmmmmmmmmmmmmmmmmmmmmmmmmmmmmmmmmmmmmm mmmmmmmmmmmmmmmmmmmm mmmmmmmmmmmmmmmmmmmmmmmmmmmmmmmmmmmmmmmmmmmmmmmmmmmmmmmmmmmmmmmmmmmmmmmmmmmmmmmm mmmmmmmmmmmmmmmmmmmm mmmmmmmmmmmmmmmmmmmmmmmmmmmmmmmmmmmmmmmmmmmmmmmmmmmmmmmmmmmmmmmmmmmmmmmmmmmmmmmm mmmmmmmmmmmmmmmmmmmm mmmmmmmmmmmmmmmmmmmmmmmmmmmmmmmmmmmmmmmmmmmmmmmmmmmmmmmmmmmmmmmmmmmmmmmmmmmmmmmm mmmmmmmmmmmmmmmmmmmm mmmmmmmmmmmmmmmmmmmmmmmmmmmmmmmmmmmmmmmmmmmmmmmmmmmmmmmmmmmmmmmmmmmmmmmmmmmmmmmm mmmmmmmmmmmmmmmmmmmm mmmmmmmmmmmmmmmmmmmmmmmmmmmmmmmmmmmmmmmmmmmmmmmmmmmmmmmmmmmmmmmmmmmmmmmmmmmmmmmm mmmmmmmmmmmmmmmmmmmm mmmmmmmmmmmmmmmmmmmmmmmmmmmmmmmmmmmmmmmmmmmmmmmmmmmmmmmmmmmmmmmmmmmmmmmmmmmmmmmm mmmmmmmmmmmmmmmmmmmm mmmmmmmmmmmmmmmmmmmmmmmmmmmmmmmmmmmmmmmmmmmmmmmmmmmmmmmmmmmmmmmmmmmmmmmmmmmmmmmm mmmmmmmmmmmmmmmmmmmm mmmmmmmmmmmmmmmmmmmmmmmmmmmmmmmmmmmmmmmmmmmmmmmmmmmmmmmmmmmmmmmmmmmmmmmmmmmmmmmm mmmmmmmmmmmmmmmmmmmm mmmmmmmmmmmmmmmmmmmmmmmmmmmmmmmmmmmmmmmmmmmmmmmmmmmmmmmmmmmmmmmmmmmmmmmmmmmmmmmm mmmmmmmmmmmmmmmmmmmm mmmmmmmmmmmmmmmmmmmmmmmmmmmmmmmmmmmmmmmmmmmmmmmmmmmmmmmmmmmmmmmmmmmmmmmmmmmmmmmm mmmmmmmmmmmmmmmmmmmm mmmmmmmmmmmmmmmmmmmmmmmmmmmmmmmmmmmmmmmmmmmmmmmmmmmmmmmmmmmmmmmmmmmmmmmmmmmmmmmm mmmmmmmmmmmmmmmmmmmm mmmmmmmmmmmmmmmmmmmmmmmmmmmmmmmmmmmmmmmmmmmmmmmmmmmmmmmmmmmmmmmmmmmmmmmmmmmmmmmm mmmmmmmmmmmmmmmmmmmm mmmmmmmmmmmmmmmmmmmmmmmmmmmmmmmmmmmmmmmmmmmmmmmmmmmmmmmmmmmmmmmmmmmmmmmmmmmmmmmm mmmmmmmmmmmmmmmmmmmm mmmmmmmmmmmmmmmmmmmmmmmmmmmmmmmmmmmmmmmmmmmmmmmmmmmmmmmmmmmmmmmmmmmmmmmmmmmmmmmm mmmmmmmmmmmmmmmmmmmm mmmmmmmmmmmmmmmmmmmmmmmmmmmmmmmmmmmmmmmmmmmmmmmmmmmmmmmmmmmmmmmmmmmmmmmmmmmmmmmm mmmmmmmmmmmmmmmmmmmm mmmmmmmmmmmmmmmmmmmmmmmmmmmmmmmmmmmmmmmmmmmmmmmmmmmmmmmmmmmmmmmmmmmmmmmmmmmmmmmm mmmmmmmmmmmmmmmmmmmm mmmmmmmmmmmmmmmmmmmmmmmmmmmmmmmmmmmmmmmmmmmmmmmmmmmmmmmmmmmmmmmmmmmmmmmmmmmmmmmm mmmmmmmmmmmmmmmmmmmm mmmmmmmmmmmmmmmmmmmmmmmmmmmmmmmmmmmmmmmmmmmmmmmmmmmmmmmmmmmmmmmmmmmmmmmmmmmmmmmm mmmmmmmmmmmmmmmmmmmm mmmmmmmmmmmmmmmmmmmmmmmmmmmmmmmmmmmmmmmmmmmmmmmmmmmmmmmmmmmmmmmmmmmmmmmmmmmmmmmm mmmmmmmmmmmmmmmmmmmm mmmmmmmmmmmmmmmmmmmmmmmmmmmmmmmmmmmmmmmmmmmmmmmmmmmmmmmmmmmmmmmmmmmmmmmmmmmmmmmm mmmmmmmmmmmmmmmmmmmm mmmmmmmmmmmmmmmmmmmmmmmmmmmmmmmmmmmmmmmmmmmmmmmmmmmmmmmmmmmmmmmmmmmmmmmmmmmmmmmm mmmmmmmmmmmmmmmmmmmm mmmmmmmmmmmmmmmmmmmmmmmmmmmmmmmmmmmmmmmmmmmmmmmmmmmmmmmmmmmmmmmmmmmmmmmmmmmmmmmm mmmmmmmmmmmmmmmmmmmm mmmmmmmmmmmmmmmmmmmmmmmmmmmmmmmmmmmmmmmmmmmmmmmmmmmmmmmmmmmmmmmmmmmmmmmmmmmmmmmm mmmmmmmmmmmmmmmmmmmm mmmmmmmmmmmmmmmmmmmmmmmmmmmmmmmmmmmmmmmmmmmmmmmmmmmmmmmmmmmmmmmmmmmmmmmmmmmmmmmm mmmmmmmmmmmmmmmmmmmm mmmmmmmmmmmmmmmmmmmmmmmmmmmmmmmmmmmmmmmmmmmmmmmmmmmmmmmmmmmmmmmmmmmmmmmmmmmmmmmm mmmmmmmmmmmmmmmmmmmm mmmmmmmmmmmmmmmmmmmmmmmmmmmmmmmmmmmmmmmmmmmmmmmmmmmmmmmmmmmmmmmmmmmmmmmmmmmmmmmm mmmmmmmmmmmmmmmmmmmm mmmmmmmmmmmmmmmmmmmmmmmmmmmmmmmmmmmmmmmmmmmmmmmmmmmmmmmmmmmmmmmmmmmmmmmmmmmmmmmm mmmmmmmmmmmmmmmmmmmm mmmmmmmmmmmmmmmmmmmmmmmmmmmmmmmmmmmmmmmmmmmmmmmmmmmmmmmmmmmmmmmmmmmmmmmmmmmmmmmm mmmmmmmmmmmmmmmmmmmm mmmmmmmmmmmmmmmmmmmmmmmmmmmmmmmmmmmmmmmmmmmmmmmmmmmmmmmmmmmmmmmmmmmmmmmmmmmmmmmm mmmmmmmmmmmmmmmmmmmm mmmmmmmmmmmmmmmmmmmmmmmmmmmmmmmmmmmmmmmmmmmmmmmmmmmmmmmmmmmmmmmmmmmmmmmmmmmmmmmm mmmmmmmmmmmmmmmmmmmm mmmmmmmmmmmmmmmmmmmmmmmmmmmmmmmmmmmmmmmmmmmmmmmmmmmmmmmmmmmmmmmmmmmmmmmmmmmmmmmm mmmmmmmmmmmmmmmmmmmm mmmmmmmmmmmmmmmmmmmmmmmmmmmmmmmmmmmmmmmmmmmmmmmmmmmmmmmmmmmmmmmmmmmmmmmmmmmmmmmm mmmmmmmmmmmmmmmmmmmm mmmmmmmmmmmmmmmmmmmmmmmmmmmmmmmmmmmmmmmmmmmmmmmmmmmmmmmmmmmmmmmmmmmmmmmmmmmmmmmm mmmmmmmmmmmmmmmmmmmm mmmmmmmmmmmmmmmmmmmmmmmmmmmmmmmmmmmmmmmmmmmmmmmmmmmmmmmmmmmmmmmmmmmmmmmmmmmmmmmm mmmmmmmmmmmmmmmmmmmm mmmmmmmmmmmmmmmmmmmmmmmmmmmmmmmmmmmmmmmmmmmmmmmmmmmmmmmmmmmmmmmmmmmmmmmmmmmmmmmm mmmmmmmmmmmmmmmmmmmm mmmmmmmmmmmmmmmmmmmmmmmmmmmmmmmmmmmmmmmmmmmmmmmmmmmmmmmmmmmmmmmmmmmmmmmmmmmmmmmm mmmmmmmmmmmmmmmmmmmm mmmmmmmmmmmmmmmmmmmmmmmmmmmmmmmmmmmmmmmmmmmmmmmmmmmmmmmmmmmmmmmmmmmmmmmmmmmmmmmm mmmmmmmmmmmmmmmmmmmm mmmmmmmmmmmmmmmmmmmmmmmmmmmmmmmmmmmmmmmmmmmmmmmmmmmmmmmmmmmmmmmmmmmmmmmmmmmmmmmm mmmmmmmmmmmmmmmmmmmm mmmmmmmmmmmmmmmmmmmmmmmmmmmmmmmmmmmmmmmmmmmmmmmmmmmmmmmmmmmmmmmmmmmmmmmmmmmmmmmm mmmmmmmmmmmmmmmmmmmm mmmmmmmmmmmmmmmmmmmmmmmmmmmmmmmmmmmmmmmmmmmmmmmmmmmmmmmmmmmmmmmmmmmmmmmmmmmmmmmm mmmmmmmmmmmmmmmmmmmm mmmmmmmmmmmmmmmmmmmmmmmmmmmmmmmmmmmmmmmmmmmmmmmmmmmmmmmmmmmmmmmmmmmmmmmmmmmmmmmm mmmmmmmmmmmmmmmmmmmm mmmmmmmmmmmmmmmmmmmmmmmmmmmmmmmmmmmmmmmmmmmmmmmmmmmmmmmmmmmmmmmmmmmmmmmmmmmmmmmm mmmmmmmmmmmmmmmmmmmm mmmmmmmmmmmmmmmmmmmmmmmmmmmmmmmmmmmmmmmmmmmmmmmmmmmmmmmmmmmmmmmmmmmmmmmmmmmmmmmm mmmmmmmmmmmmmmmmmmmm mmmmmmmmmmmmmmmmmmmmmmmmmmmmmmmmmmmmmmmmmmmmmmmmmmmmmmmmmmmmmmmmmmmmmmmmmmmmmmmm mmmmmmmmmmmmmmmmmmmm mmmmmmmmmmmmmmmmmmmmmmmmmmmmmmmmmmmmmmmmmmmmmmmmmmmmmmmmmmmmmmmmmmmmmmmmmmmmmmmm mmmmmmmmmmmmmmmmmmmm mmmmmmmmmmmmmmmmmmmmmmmmmmmmmmmmmmmmmmmmmmmmmmmmmmmmmmmmmmmmmmmmmmmmmmmmmmmmmmmm mmmmmmmmmmmmmmmmmmmm mmmmmmmmmmmmmmmmmmmmmmmmmmmmmmmmmmmmmmmmmmmmmmmmmmmmmmmmmmmmmmmmmmmmmmmmmmmmmmmm mmmmmmmmmmmmmmmmmmmm mmmmmmmmmmmmmmmmmmmmmmmmmmmmmmmmmmmmmmmmmmmmmmmmmmmmmmmmmmmmmmmmmmmmmmmmmmmmmmmm mmmmmmmmmmmmmmmmmmmm mmmmmmmmmmmmmmmmmmmmmmmmmmmmmmmmmmmmmmmmmmmmmmmmmmmmmmmmmmmmmmmmmmmmmmmmmmmmmmmm mmmmmmmmmmmmmmmmmmmm mmmmmmmmmmmmmmmmmmmmmmmmmmmmmmmmmmmmmmmmmmmmmmmmmmmmmmmmmmmmmmmmmmmmmmmmmmmmmmmm mmmmmmmmmmmmmmmmmmmm mmmmmmmmmmmmmmmmmmmmmmmmmmmmmmmmmmmmmmmmmmmmmmmmmmmmmmmmmmmmmmmmmmmmmmmmmmmmmmmm mmmmmmmmmmmmmmmmmmmm mmmmmmmmmmmmmmmmmmmmmmmmmmmmmmmmmmmmmmmmmmmmmmmmmmmmmmmmmmmmmmmmmmmmmmmmmmmmmmmm mmmmmmmmmmmmmmmmmmmm mmmmmmmmmmmmmmmmmmmmmmmmmmmmmmmmmmmmmmmmmmmmmmmmmmmmmmmmmmmmmmmmmmmmmmmmmmmmmmmm mmmmmmmmmmmmmmmmmmmm mmmmmmmmmmmmmmmmmmmmmmmmmmmmmmmmmmmmmmmmmmmmmmmmmmmmmmmmmmmmmmmmmmmmmmmmmmmmmmmm mmmmmmmmmmmmmmmmmmmm mmmmmmmmmmmmmmmmmmmmmmmmmmmmmmmmmmmmmmmmmmmmmmmmmmmmmmmmmmmmmmmmmmmmmmmmmmmmmmmm mmmmmmmmmmmmmmmmmmmm mmmmmmmmmmmmmmmmmmmmmmmmmmmmmmmmmmmmmmmmmmmmmmmmmmmmmmmmmmmmmmmmmmmmmmmmmmmmmmmm mmmmmmmmmmmmmmmmmmmm mmmmmmmmmmmmmmmmmmmmmmmmmmmmmmmmmmmmmmmmmmmmmmmmmmmmmmmmmmmmmmmmmmmmmmmmmmmmmmmm mmmmmmmmmmmmmmmmmmmm mmmmmmmmmmmmmmmmmmmmmmmmmmmmmmmmmmmmmmmmmmmmmmmmmmmmmmmmmmmmmmmmmmmmmmmmmmmmmmmm mmmmmmmmmmmmmmmmmmmm mmmmmmmmmmmmmmmmmmmmmmmmmmmmmmmmmmmmmmmmmmmmmmmmmmmmmmmmmmmmmmmmmmmmmmmmmmmmmmmm mmmmmmmmmmmmmmmmmmmm mmmmmmmmmmmmmmmmmmmmmmmmmmmmmmmmmmmmmmmmmmmmmmmmmmmmmmmmmmmmmmmmmmmmmmmmmmmmmmmm mmmmmmmmmmmmmmmmmmmm mmmmmmmmmmmmmmmmmmmmmmmmmmmmmmmmmmmmmmmmmmmmmmmmmmmmmmmmmmmmmmmmmmmmmmmmmmmmmmmm mmmmmmmmmmmmmmmmmmmm mmmmmmmmmmmmmmmmmmmmmmmmmmmmmmmmmmmmmmmmmmmmmmmmmmmmmmmmmmmmmmmmmmmmmmmmmmmmmmmm mmmmmmmmmmmmmmmmmmmm mmmmmmmmmmmmmmmmmmmmmmmmmmmmmmmmmmmmmmmmmmmmmmmmmmmmmmmmmmmmmmmmmmmmmmmmmmmmmmmm mmmmmmmmmmmmmmmmmmmm mmmmmmmmmmmmmmmmmmmmmmmmmmmmmmmmmmmmmmmmmmmmmmmmmmmmmmmmmmmmmmmmmmmmmmmmmmmmmmmm mmmmmmmmmmmmmmmmmmmm mmmmmmmmmmmmmmmmmmmmmmmmmmmmmmmmmmmmmmmmmmmmmmmmmmmmmmmmmmmmmmmmmmmmmmmmmmmmmmmm mmmmmmmmmmmmmmmmmmmm mmmmmmmmmmmmmmmmmmmmmmmmmmmmmmmmmmmmmmmmmmmmmmmmmmmmmmmmmmmmmmmmmmmmmmmmmmmmmmmm mmmmmmmmmmmmmmmmmmmm mmmmmmmmmmmmmmmmmmmmmmmmmmmmmmmmmmmmmmmmmmmmmmmmmmmmmmmmmmmmmmmmmmmmmmmmmmmmmmmm mmmmmmmmmmmmmmmmmmmm mmmmmmmmmmmmmmmmmmmmmmmmmmmmmmmmmmmmmmmmmmmmmmmmmmmmmmmmmmmmmmmmmmmmmmmmmmmmmmmm mmmmmmmmmmmmmmmmmmmm mmmmmmmmmmmmmmmmmmmmmmmmmmmmmmmmmmmmmmmmmmmmmmmmmmmmmmmmmmmmmmmmmmmmmmmmmmmmmmmm mmmmmmmmmmmmmmmmmmmm mmmmmmmmmmmmmmmmmmmmmmmmmmmmmmmmmmmmmmmmmmmmmmmmmmmmmmmmmmmmmmmmmmmmmmmmmmmmmmmm mmmmmmmmmmmmmmmmmmmm mmmmmmmmmmmmmmmmmmmmmmmmmmmmmmmmmmmmmmmmmmmmmmmmmmmmmmmmmmmmmmmmmmmmmmmmmmmmmmmm mmmmmmmmmmmmmmmmmmmm mmmmmmmmmmmmmmmmmmmmmmmmmmmmmmmmmmmmmmmmmmmmmmmmmmmmmmmmmmmmmmmmmmmmmmmmmmmmmmmm mmmmmmmmmmmmmmmmmmmm mmmmmmmmmmmmmmmmmmmmmmmmmmmmmmmmmmmmmmmmmmmmmmmmmmmmmmmmmmmmmmmmmmmmmmmmmmmmmmmm mmmmmmmmmmmmmmmmmmmm mmmmmmmmmmmmmmmmmmmmmmmmmmmmmmmmmmmmmmmmmmmmmmmmmmmmmmmmmmmmmmmmmmmmmmmmmmmmmmmm mmmmmmmmmmmmmmmmmmmm mmmmmmmmmmmmmmmmmmmmmmmmmmmmmmmmmmmmmmmmmmmmmmmmmmmmmmmmmmmmmmmmmmmmmmmmmmmmmmmm mmmmmmmmmmmmmmmmmmmm mmmmmmmmmmmmmmmmmmmmmmmmmmmmmmmmmmmmmmmmmmmmmmmmmmmmmmmmmmmmmmmmmmmmmmmmmmmmmmmm mmmmmmmmmmmmmmmmmmmm mmmmmmmmmmmmmmmmmmmmmmmmmmmmmmmmmmmmmmmmmmmmmmmmmmmmmmmmmmmmmmmmmmmmmmmmmmmmmmmm mmmmmmmmmmmmmmmmmmmm mmmmmmmmmmmmmmmmmmmmmmmmmmmmmmmmmmmmmmmmmmmmmmmmmmmmmmmmmmmmmmmmmmmmmmmmmmmmmmmm mmmmmmmmmmmmmmmmmmmm mmmmmmmmmmmmmmmmmmmmmmmmmmmmmmmmmmmmmmmmmmmmmmmmmmmmmmmmmmmmmmmmmmmmmmmmmmmmmmmm mmmmmmmmmmmmmmmmmmmm mmmmmmmmmmmmmmmmmmmmmmmmmmmmmmmmmmmmmmmmmmmmmmmmmmmmmmmmmmmmmmmmmmmmmmmmmmmmmmmm mmmmmmmmmmmmmmmmmmmm mmmmmmmmmmmmmmmmmmmmmmmmmmmmmmmmmmmmmmmmmmmmmmmmmmmmmmmmmmmmmmmmmmmmmmmmmmmmmmmm mmmmmmmmmmmmmmmmmmmm mmmmmmmmmmmmmmmmmmmmmmmmmmmmmmmmmmmmmmmmmmmmmmmmmmmmmmmmmmmmmmmmmmmmmmmmmmmmmmmm mmmmmmmmmmmmmmmmmmmm mmmmmmmmmmmmmmmmmmmmmmmmmmmmmmmmmmmmmmmmmmmmmmmmmmmmmmmmmmmmmmmmmmmmmmmmmmmmmmmm mmmmmmmmmmmmmmmmmmmm mmmmmmmmmmmmmmmmmmmmmmmmmmmmmmmmmmmmmmmmmmmmmmmmmmmmmmmmmmmmmmmmmmmmmmmmmmmmmmmm mmmmmmmmmmmmmmmmmmmm mmmmmmmmmmmmmmmmmmmmmmmmmmmmmmmmmmmmmmmmmmmmmmmmmmmmmmmmmmmmmmmmmmmmmmmmmmmmmmmm mmmmmmmmmmmmmmmmmmmm mmmmmmmmmmmmmmmmmmmmmmmmmmmmmmmmmmmmmmmmmmmmmmmmmmmmmmmmmmmmmmmmmmmmmmmmmmmmmmmm mmmmmmmmmmmmmmmmmmmm mmmmmmmmmmmmmmmmmmmmmmmmmmmmmmmmmmmmmmmmmmmmmmmmmmmmmmmmmmmmmmmmmmmmmmmmmmmmmmmm mmmmmmmmmmmmmmmmmmmm mmmmmmmmmmmmmmmmmmmmmmmmmmmmmmmmmmmmmmmmmmmmmmmmmmmmmmmmmmmmmmmmmmmmmmmmmmmmmmmm mmmmmmmmmmmmmmmmmmmm mmmmmmmmmmmmmmmmmmmmmmmmmmmmmmmmmmmmmmmmmmmmmmmmmmmmmmmmmmmmmmmmmmmmmmmmmmmmmmmm mmmmmmmmmmmmmmmmmmmm mmmmmmmmmmmmmmmmmmmmmmmmmmmmmmmmmmmmmmmmmmmmmmmmmmmmmmmmmmmmmmmmmmmmmmmmmmmmmmmm mmmmmmmmmmmmmmmmmmmm mmmmmmmmmmmmmmmmmmmmmmmmmmmmmmmmmmmmmmmmmmmmmmmmmmmmmmmmmmmmmmmmmmmmmmmmmmmmmmmm mmmmmmmmmmmmmmmmmmmm mmmmmmmmmmmmmmmmmmmmmmmmmmmmmmmmmmmmmmmmmmmmmmmmmmmmmmmmmmmmmmmmmmmmmmmmmmmmmmmm mmmmmmmmmmmmmmmmmmmm mmmmmmmmmmmmmmmmmmmmmmmmmmmmmmmmmmmmmmmmmmmmmmmmmmmmmmmmmmmmmmmmmmmmmmmmmmmmmmmm mmmmmmmmmmmmmmmmmmmm mmmmmmmmmmmmmmmmmmmmmmmmmmmmmmmmmmmmmmmmmmmmmmmmmmmmmmmmmmmmmmmmmmmmmmmmmmmmmmmm mmmmmmmmmmmmmmmmmmmm mmmmmmmmmmmmmmmmmmmmmmmmmmmmmmmmmmmmmmmmmmmmmmmmmmmmmmmmmmmmmmmmmmmmmmmmmmmmmmmm mmmmmmmmmmmmmmmmmmmm mmmmmmmmmmmmmmmmmmmmmmmmmmmmmmmmmmmmmmmmmmmmmmmmmmmmmmmmmmmmmmmmmmmmmmmmmmmmmmmm mmmmmmmmmmmmmmmmmmmm mmmmmmmmmmmmmmmmmmmmmmmmmmmmmmmmmmmmmmmmmmmmmmmmmmmmmmmmmmmmmmmmmmmmmmmmmmmmmmmm mmmmmmmmmmmmmmmmmmmm mmmmmmmmmmmmmmmmmmmmmmmmmmmmmmmmmmmmmmmmmmmmmmmmmmmmmmmmmmmmmmmmmmmmmmmmmmmmmmmm mmmmmmmmmmmmmmmmmmmm mmmmmmmmmmmmmmmmmmmmmmmmmmmmmmmmmmmmmmmmmmmmmmmmmmmmmmmmmmmmmmmmmmmmmmmmmmmmmmmm mmmmmmmmmmmmmmmmmmmm mmmmmmmmmmmmmmmmmmmmmmmmmmmmmmmmmmmmmmmmmmmmmmmmmmmmmmmmmmmmmmmmmmmmmmmmmmmmmmmm mmmmmmmmmmmmmmmmmmmm mmmmmmmmmmmmmmmmmmmmmmmmmmmmmmmmmmmmmmmmmmmmmmmmmmmmmmmmmmmmmmmmmmmmmmmmmmmmmmmm mmmmmmmmmmmmmmmmmmmm mmmmmmmmmmmmmmmmmmmmmmmmmmmmmmmmmmmmmmmmmmmmmmmmmmmmmmmmmmmmmmmmmmmmmmmmmmmmmmmm mmmmmmmmmmmmmmmmmmmm mmmmmmmmmmmmmmmmmmmmmmmmmmmmmmmmmmmmmmmmmmmmmmmmmmmmmmmmmmmmmmmmmmmmmmmmmmmmmmmm mmmmmmmmmmmmmmmmmmmm mmmmmmmmmmmmmmmmmmmmmmmmmmmmmmmmmmmmmmmmmmmmmmmmmmmmmmmmmmmmmmmmmmmmmmmmmmmmmmmm mmmmmmmmmmmmmmmmmmmm mmmmmmmmmmmmmmmmmmmmmmmmmmmmmmmmmmmmmmmmmmmmmmmmmmmmmmmmmmmmmmmmmmmmmmmmmmmmmmmm mmmmmmmmmmmmmmmmmmmm mmmmmmmmmmmmmmmmmmmmmmmmmmmmmmmmmmmmmmmmmmmmmmmmmmmmmmmmmmmmmmmmmmmmmmmmmmmmmmmm mmmmmmmmmmmmmmmmmmmmmmmmmmmmmmmmmmmmmmmmmmmmmmmmmmmmmmmmmmmmmmmmmmmm Status: Acute Code(s): M25.519 - PAIN IN UNSPECIFIED SHOULDER SNOMED Code(s): 99439090 (2) Multiple myeloma Narrative/Plan: The pt has response to bolus dexathasone,with improvement . She has started Velcade + dex, and will add rev, once she completes her test Status: Acute Code(s): C90.00 - MULTIPLE MYELOMA NOT HAVING ACHIEVED REMISSION SNOMED Code(s): 782771591 Plan: Ok to d/c from our standpoint Continue chemo as outpat
== END 2018-07-07 18:58 | disposition home or self-care (01) ==
LOC: EC 02:18 → 3SCARD 06:24
PROVIDERS: ADMIT Internal Medicine; ATTEND Internal Medicine
DX: M54.9 Dorsalgia, unspecified (principal); K59.00 Constipation, unspecified; C90.00 Multiple myeloma not having achieved remission; M25.511 Pain in right shoulder; N05.8 Unspecified nephritic syndrome with other morphologic changes; N17.9 Acute kidney failure, unspecified; Z79.82 Long term (current) use of aspirin; Z79.899 Other long term (current) drug therapy; Z98.84 Bariatric surgery status; Z98.890 Other specified postprocedural states
CPT/HCPCS: 96375; 96372; 96374; 99285; 36415; 93005; 85379; 80053; 83735; 84484; 85025; 85610; 85730; 93970; 71250; 78582; G0378; A9540; A9567; J1650; J1170

== ENCOUNTER 2018-07-12 14:08 | Emergency (ER) | payer BC, OTHER ==
[2018-07-12 14:16] VITALS: TEMP 98.7
[2018-07-12] MEDS ORDERED: SODIUM CHLORIDE 0.9% 1,000 ML IV STA ×3 (14:45→15:59)
--- NOTE | 2018-07-12 14:49 | ED ---
General Adult HPI - General Chief complaint: Recheck/Abnormal Lab/Rx Stated complaint: BP issues, Ca pt Time Seen by Provider: 07/12/18 14:38 Source: patient, RN notes reviewed Mode of arrival: wheelchair Limitations: no limitations - History of Present Illness Initial comments: Patient is a pleasant 57-year-old female presenting to the emergency department with concerns for low blood pressure. Patient does have history of multiple myeloma and is on Velcade. This is patient's third injection that was given yesterday. Patient had low blood pressure starting last night and continues morning. Patient feels very lightheaded weak and fatigued. Patient did have similar symptoms last week with her second injection and did stay in the hospital overnight at that time. Patient denies any bleeding or black stools. No isolated area of weakness or confusion. - Related Data Home Medications Medication Instructions Recorded Confirmed Aspirin [Adult Low Dose Aspirin EC] 81 mg PO DAILY 03/08/16 07/12/18 Acyclovir 400 mg PO BID 07/07/18 07/12/18 Dexamethasone 40 mg PO MO 07/07/18 07/12/18 Ergocalciferol (Vitamin D2) 50,000 unit PO WE 07/07/18 07/12/18 [Vitamin D2] Magnesium Oxide 400 mg PO DAILY 07/07/18 07/12/18 Pantoprazole [Protonix] 40 mg PO HS PRN 07/07/18 07/12/18 Sulfamethox-Tmp 800-160Mg [Bactrim 1 tab PO MOWEFR 07/07/18 07/12/18 DS 800-160 mg] Previous Rx's Medication Instructions Recorded Atorvastatin [Lipitor] 40 mg PO DAILY #30 tab 06/24/18 Midodrine [ProAmatine] 5 mg PO AC-BID #60 tab 06/24/18 Gabapentin [Neurontin] 200 mg PO BID #30 cap 07/07/18 Acetaminophen-Codeine 300-30mg 2 each PO Q6H PRN #20 tablet 07/12/18 [Tylenol #3] Allergies Allergy/AdvReac Type Severity Reaction Status Date / Time No Known Allergies Allergy Verified 07/12/18 14:32 Review of Systems ROS Statement: Those systems with pertinent positive or pertinent negative responses have been documented in the HPI. ROS Other: All systems not noted in ROS Statement are negative. Constitutional: Denies: fever Eyes: Denies: eye pain ENT: Denies: ear pain Respiratory: Denies: cough, dyspnea Cardiovascular: Denies: chest pain Endocrine: Reports: fatigue Gastrointestinal: Denies: abdominal pain, hematemesis, melena, hematochezia Genitourinary: Denies: dysuria Musculoskeletal: Denies: back pain Skin: Denies: rash Neurological: Denies: headache Past Medical History Past Medical History: Cancer Additional Past Medical History / Comment(s): Blood clot in Left eye (origin unknown)...blood work/dx tests such as carotid u/s performed to determine etiology but remains unknown, multiple myloma, acute kindney injury History of Any Multi-Drug Resistant Organisms: None Reported Past Surgical History: Bariatric Surgery, Orthopedic Surgery, Tonsillectomy Additional Past Surgical History / Comment(s): Right knee meniscus repair (Feb 2016), Bariatric Lap band May 2009, bilateral cataract surgery (November 2013), Tonsillectomy 1959's, lin carpal tunnel, dialysis port right side removed 06/2018 Past Anesthesia/Blood Transfusion Reactions: No Reported Reaction Additional Past Anesthesia/Blood Transfusion Reaction / Comment(s): No hx of blood transfusion Past Psychological History: No Psychological Hx Reported Smoking Status: Never smoker Past Alcohol Use History: None Reported Past Drug Use History: None Reported - Past Family History Father History Unknown: Yes Family Medical History: Unable to Obtain Additional Family Medical History / Comment(s): does not know who her biologic father is Mother Family Medical History: No Reported History Additional Family Medical History / Comment(s): no hx of cancer or heart di sease. Reports no family hx of cancer or heart disease General Exam Limitations: no limitations General appearance: alert, in no apparent distress Head exam: Present: atraumatic, normocephalic Eye exam: Present: PERRL, EOMI, other (Pale conjunctiva). Absent: nystagmus ENT exam: Present: normal oropharynx Neck exam: Present: normal inspection Respiratory exam: Present: normal lung sounds bilaterally Cardiovascular Exam: Present: tachycardia GI/Abdominal exam: Present: soft. Absent: tenderness Extremities exam: Present: normal inspection Neurological exam: Present: alert Psychiatric exam: Present: normal affect, normal mood Skin exam: Present: normal color. Absent: rash Course Vital Signs 07/12/18 07/12/18 07/12/18 14:13 15:33 16:16 Temperature 98.7 F Pulse Rate 133 H 103 H 101 H Respiratory 16 18 18 Rate Blood Pressure 72/42 101/58 102/62 O2 Sat by Pulse 99 98 100 Oximetry 07/12/18 17:20 Temperature Pulse Rate 80 Respiratory 18 Rate Blood Pressure 94/51 O2 Sat by Pulse 100 Oximetry EKG Findings - EKG Comments: EKG Findings:: Sinus tachycardia 103. PA 164. QRS 86. QT 364. QTC 476. Normal axis. Normal QRS. Nonspecific T waves. Medical Decision Making - Medical Decision Making Patient reevaluated and feels much better following IV fluids. Vital signs have improved. Patient and family updated on results. Patient does request discharge home. Case was discussed with Dr. Hernandez as well as Dr. Munguia as well as practitioner Pearl vences overall comfortable with discharge and will follow up with patient. - Lab Data Result diagrams: 07/12/18 15:30 07/12/18 15:30 Lab Results 07/12/18 07/12/18 07/12/18 Range/Units 15:30 15:30 15:30 WBC 16.6 H (3.8-10.6) k/uL RBC 3.06 L (3.80-5.40) m/uL Hgb 8.7 L (11.4-16.0) gm/dL Hct 25.9 L (34.0-46.0) % MCV 84.8 (80.0-100.0) fL MCH 28.6 (25.0-35.0) pg MCHC 33.7 (31.0-37.0) g/dL RDW 17.0 H (11.5-15.5) % Plt Count 401 (150-450) k/uL Neutrophils % 70 % Lymphocytes % 15 % Monocytes % 10 % Eosinophils % 1 % Basophils % 1 % Neutrophils # 11.7 H (1.3-7.7) k/uL Lymphocytes # 2.5 (1.0-4.8) k/uL Monocytes # 1.7 H (0-1.0) k/uL Eosinophils # 0.2 (0-0.7) k/uL Basophils # 0.1 (0-0.2) k/uL Anisocytosis Slight PT (9.0-12.0) sec INR (<1.2) APTT (22.0-30.0) sec Sodium 129 L (137-145) mmol/L Potassium 4.6 (3.5-5.1) mmol/L Chloride 95 L (98-107) mmol/L Carbon Dioxide 26 (22-30) mmol/L Anion Gap 8 mmol/L BUN 24 H (7-17) mg/dL Creatinine 1.82 H (0.52-1.04) mg/dL Est GFR (CKD-EPI)AfAm 36 (>60 ml/min/1.73 sqM) Est GFR (CKD-EPI)NonAf 31 (>60 ml/min/1.73 sqM) Glucose 95 (74-99) mg/dL Plasma Lactic Acid Ric 1.2 (0.7-2.0) mmol/L Calcium 8.9 (8.4-10.2) mg/dL Total Bilirubin 0.2 (0.2-1.3) mg/dL AST 27 (14-36) U/L ALT 29 (9-52) U/L Alkaline Phosphatase 212 H (38-126) U/L Total Protein 5.5 L (6.3-8.2) g/dL Albumin 3.0 L (3.5-5.0) g/dL Urine Color Urine Appearance (Clear) Urine pH (5.0-8.0) Ur Specific [place] (1.001-1.035) Urine Protein (Negative) Urine Glucose (UA) (Negative) Urine Ketones (Negative) Urine Blood (Negative) Urine Nitrite (Negative) Urine Bilirubin (Negative) Urine Urobilinogen (<2.0) mg/dL Ur Leukocyte Esterase (Negative) Urine RBC (0-5) /hpf Urine WBC (0-5) /hpf Ur Squamous Epith Cells (0-4) /hpf Urine Bacteria (None) /hpf Hyaline Casts (0-2) /lpf Urine Mucus (None) /hpf 07/12/18 07/12/18 Range/Units 15:30 17:15 WBC (3.8-10.6) k/uL RBC (3.80-5.40) m/uL Hgb (11.4-16.0) gm/dL Hct (34.0-46.0) % MCV (80.0-100.0) fL MCH (25.0-35.0) pg MCHC (31.0-37.0) g/dL RDW (11.5-15.5) % Plt Count (150-450) k/uL Neutrophils % % Lymphocytes % % Monocytes % % Eosinophils % % Basophils % % Neutrophils # (1.3-7.7) k/uL Lymphocytes # (1.0-4.8) k/uL Monocytes # (0-1.0) k/uL Eosinophils # (0-0.7) k/uL Basophils # (0-0.2) k/uL Anisocytosis PT 10.2 (9.0-12.0) sec INR 0.9 (<1.2) APTT 23.4 (22.0-30.0) sec Sodium (137-145) mmol/L Potassium (3.5-5.1) mmol/L Chloride (98-107) mmol/L Carbon Dioxide (22-30) mmol/L Anion Gap mmol/L BUN (7-17) mg/dL Creatinine (0.52-1.04) mg/dL Est GFR (CKD-EPI)AfAm (>60 ml/min/1.73 sqM) Est GFR (CKD-EPI)NonAf (>60 ml/min/1.73 sqM) Glucose (74-99) mg/dL Plasma Lactic Acid Ric (0.7-2.0) mmol/L Calcium (8.4-10.2) mg/dL Total Bilirubin (0.2-1.3) mg/dL AST (14-36) U/L ALT (9-52) U/L Alkaline Phosphatase (38-126) U/L Total Protein (6.3-8.2) g/dL Albumin (3.5-5.0) g/dL Urine Color Yellow Urine Appearance Cloudy H (Clear) Urine pH 6.0 (5.0-8.0) Ur Specific [place] 1.008 (1.001-1.035) Urine Protein 3+ H (Negative) Urine Glucose (UA) Negative (Negative) Urine Ketones Negative (Negative) Urine Blood Trace H (Negative) Urine Nitrite Negative (Negative) Urine Bilirubin Negative (Negative) Urine Urobilinogen <2.0 (<2.0) mg/dL Ur Leukocyte Esterase Small H (Negative) Urine RBC 1 (0-5) /hpf Urine WBC 4 (0-5) /hpf Ur Squamous Epith Cells 1 (0-4) /hpf Urine Bacteria Rare H (None) /hpf Hyaline Casts 3 H (0-2) /lpf Urine Mucus Rare H (None) /hpf - Radiology Data Radiology results: image reviewed (Chest x-ray shows atelectasis and pulmonary vascular markings at the upper limits of normal.) Disposition Clinical Impression: Hypotension Disposition: HOME SELF-CARE Condition: Stable Instructions (If sedation given, give patient instructions): Hypotension (ED) Additional Instructions: Please follow-up tomorrow with Dr. Loco. He will provide additional fluids if needed. Please also follow-up with your customer service advisor and primary care physician. Return for low blood pressure, increased heart rate, lightheadedness, worsening symptoms or other concerns. Prescriptions: Acetaminophen-Codeine 300-30mg [Tylenol #3] 2 each PO Q6H PRN #20 tablet PRN Reason: Pain Is patient prescribed a controlled substance at d/c from ED?: Yes When asked, does pt state using other controlled substances?: No If prescribed controlled substance>3 days was MAPS reviewed?: Prescribed <3 Days If opioid is for acute pain is fill amount 7 days or less?: Yes If Rx opioid, was Start Talking consent form obtained?: Yes Referrals: Venice Saavedra MD [Primary Care Provider] - 1-2 days Pb Hernandez MD [STAFF PHYSICIAN] - 1-2 days Iraj Munguia DO [STAFF PHYSICIAN] - 1-2 days Time of Disposition: 17:57
[2018-07-12 15:35] VITALS: RESP 18
[2018-07-12 15:46] LABS: Anisocytosis Slight; Basophils # (A) 0.1 k/uL (0-0.2); Basophils % (A) 1 %; Eosinophils # (A) 0.2 k/uL (0-0.7); Eosinophils % (A) 1 %; HCT 25.9 % (34.0-46.0); HGB 8.7 gm/dL (11.4-16.0); Lymphocytes # (A) 2.5 k/uL (1.0-4.8); Lymphocytes % (A) 15 %; MCH 28.6 pg (25.0-35.0); MCHC 33.7 g/dL (31.0-37.0); MCV 84.8 fL (80.0-100.0); Mean Platelet Volume 7.2; Monocytes # (A) 1.7 k/uL (0-1.0); Monocytes % (A) 10 %; Neutrophils # (A) 11.7 k/uL (1.3-7.7); Neutrophils % (A) 70 %; Platelet Count 401 k/uL (150-450); RBC 3.06 m/uL (3.80-5.40); WBC 16.6 k/uL (3.8-10.6)
[2018-07-12 15:51] LABS: INR 0.9 (<1.2); Partial Thromboplastin Time 23.4 sec (22.0-30.0); Prothrombin Time 10.2 sec (9.0-12.0)
[2018-07-12 15:52] LABS: Calcium 8.9 mg/dL (8.4-10.2); Potassium 4.6 mmol/L (3.5-5.1); Total Bilirubin 0.2 mg/dL (0.2-1.3); Total Protein 5.5 g/dL (6.3-8.2)
--- NOTE | 2018-07-12 16:20 | XR ---
EXAMINATION TYPE: XR chest 2V DATE OF EXAM: 07/12/2018 COMPARISON: 06/22/2018 INDICATION: Weakness and hypotension following chemotherapy TECHNIQUE: Frontal and lateral views of the chest are obtained. FINDINGS: The heart size is normal. There is streak opacity in the posterior lung base, likely the right could be some atelectasis. Pulmo nary vascular markings are at the upper limits of normal for size.. IMPRESSION: 1. Mild posterior streak atelectasis. Clinical correlation recommended. 2. Pulmonary vascular markings at the upper limits of normal.
[2018-07-12 17:21] VITALS: PULSE 80
[2018-07-12 17:34] LABS: Appearance,Urine Cloudy (Clear); Bacteria,Urine Rare /hpf; Bilirubin,Urine Negative (Negative); Blood,Urine Trace (Negative); Color,Urine Yellow; Glucose,Urine (UA) Negative (Negative); Hyaline Casts,Urine 3 /lpf (0-2); Ketones,Urine Negative (Negative); Leukocyte Esterase,Urine Small (Negative); Mucus,Urine Rare /hpf; Nitrite,Urine Negative (Negative); Protein,Urine 3+ (Negative); RBC,Urine 1 /hpf (0-5); Specific Gravity,Urine 1.008 (1.001-1.035); Squamous Epithelial Cell,Urine 1 /hpf (0-4); Urobilinogen,Urine <2.0 mg/dL (<2.0); WBC,Urine 4 /hpf (0-5)
[2018-07-12] MEDS ORDERED: Acetaminophen-Codeine 300-30mg TAB PO STA (18:23)
[2018-07-12 18:34] VITALS: BP 92/70
== END 2018-07-12 18:33 | disposition home or self-care (01) ==
LOC: EC 14:08
DX: I95.9 Hypotension, unspecified (principal); C90.00 Multiple myeloma not having achieved remission; Z79.82 Long term (current) use of aspirin; Z79.899 Other long term (current) drug therapy; Z98.84 Bariatric surgery status
CPT/HCPCS: 36415; 71046; 80053; 81001; 83605; 85025; 85610; 85730; 93005; 96360; 96361; 99285

== ENCOUNTER → 2018-07-15 | Outpatient (CLI) | payer BC, OTHER ==
--- NOTE | 2018-07-15 14:11 | XR ---
EXAMINATION TYPE: XR shoulder complete RT, XR scapula RT DATE OF EXAM: 07/15/2018 CLINICAL HISTORY: History of multiple myeloma with soft tissue lump posterior scapula for 1.5 weeks. Pain. TECHNIQUE: Three views of the right shoulder are obtained. 2 views right scapula are obtained. COMPARISON: CT chest July 07, 2018.. FINDINGS: There is no acute fracture/dislocation evident in the right shoulder. Acromioclavicular андрей int shows moderate narrowing. There is subchondral cystic change in the superior glenoid. Distal acro mion morphology is unremarkable. The visualized ribs are intact and unremarkable. Images of right scapula show no acute fracture. No radiodense soft tissue mass is present. Review of recent CT chest shows no obvious mass near level of posterior scapula, the subcutaneous fat is fairly well preserved. No suspicious lytic lesions are clearly evident. IMPRESSION: As above.
== END | disposition home or self-care (01) ==
LOC: RADXRMAIN 09:44
PROVIDERS: ATTEND Nurse Practitioner Adult Health
DX: M85.611 Other cyst of bone, right shoulder (principal); M25.811 Other specified joint disorders, right shoulder

== ENCOUNTER → 2018-07-17 | Outpatient (CLI) | payer BC, OTHER ==
[2018-07-17 10:19] LABS: Anisocytosis Slight; HCT 27.9 % (34.0-46.0); HGB 8.8 gm/dL (11.4-16.0); MCH 27.6 pg (25.0-35.0); MCHC 31.5 g/dL (31.0-37.0); MCV 87.8 fL (80.0-100.0); Mean Platelet Volume 6.9; Platelet Count 432 k/uL (150-450); RBC 3.18 m/uL (3.80-5.40); RDW 16.9 % (11.5-15.5); Reticulocyte % 2.6 % (0.5-2.0); WBC 7.6 k/uL (3.8-10.6)
[2018-07-17 10:32] LABS: INR 0.9 (<1.2); Partial Thromboplastin Time 24.8 sec (22.0-30.0); Prothrombin Time 10.1 sec (9.0-12.0)
[2018-07-17 11:35] LABS: Eosinophils # (M) 0.08 k/uL (0-0.7); Lymphocytes # (M) 1.06 k/uL (1.0-4.8); Monocytes # (M) 0.99 k/uL (0-1.0); Neutrophils # (M) 5.47 k/uL (1.3-7.7); Neutrophils % (M) 72 %; Nucleated Red Blood Cells 0 /100 WBC (0-0); Total Cells Counted 100
[2018-07-17 11:36] LABS: Poikilocytosis (M) Present
[2018-07-17 16:20] LABS: Beta 2 Microglobulin 6.38 mg/L (0.61-2.37)
[2018-07-17 16:29] LABS: Protein, Total 5.1 g/dL (6.2-8.2)
[2018-07-17 16:47] LABS: Albumin 3.4 g/dL (3.80-4.90); Albumin/Globulin Ratio 2.13 (1.60-3.17); Anion Gap 7.6 mmol/L (4.00-12.00); Carbon Dioxide 23.4 mmol/L (21.6-31.8); Globulin 1.6 g/dL (1.6-3.3); Magnesium 2.2 mg/dL (1.5-2.4); Potassium 5.2 mmol/L (3.5-5.5); Total Bilirubin 0.2 mg/dL (0.3-1.2); Uric Acid 7.2 mg/dL (2.9-7.7)
[2018-07-19 14:14] LABS: Albumin 2.36 g/dL (3.80-4.90); Gamma Globulin 0.51 g/dL (0.70-1.50)
== END | disposition home or self-care (01) ==
LOC: LABWHC1 09:21
PROVIDERS: ATTEND Internal Medicine Hematology & Oncology
DX: C90.00 Multiple myeloma not having achieved remission (principal); I10 Essential (primary) hypertension; N08 Glomerular disorders in diseases classified elsewhere; E85.9 Amyloidosis, unspecified
CPT/HCPCS: 36415; 80053; 82150; 82232; 83615; 83690; 83735; 83883; 84165; 84439; 84443; 84550; 85025; 85045; 85610; 85730; 85810

== ENCOUNTER 2018-07-19 13:34 | Inpatient (IN) | payer BC, OTHER ==
[2018-07-19 14:27] LABS: Anisocytosis Slight; Basophils % (A) 0 %; Eosinophils # (A) 0.1 k/uL (0-0.7); Eosinophils % (A) 1 %; HCT 27.3 % (34.0-46.0); HGB 9.1 gm/dL (11.4-16.0); Lymphocytes # (A) 1.9 k/uL (1.0-4.8); Lymphocytes % (A) 17 %; MCH 28.2 pg (25.0-35.0); MCHC 33.5 g/dL (31.0-37.0); MCV 84.3 fL (80.0-100.0); Mean Platelet Volume 7.1; Monocytes # (A) 0.9 k/uL (0-1.0); Monocytes % (A) 8 %; Neutrophils # (A) 7.8 k/uL (1.3-7.7); Neutrophils % (A) 70 %; Platelet Count 469 k/uL (150-450); RBC 3.23 m/uL (3.80-5.40); WBC 11.2 k/uL (3.8-10.6)
--- NOTE | 2018-07-19 14:28 | ED ---
Dizziness HPI - General Chief Complaint: Dizziness Stated Complaint: low blood pressure Time Seen by Provider: 07/19/18 13:45 Source: patient, RN notes reviewed Mode of arrival: wheelchair Limitations: no limitations - History of Present Illness Initial Comments: This a 58-year-old female history of multiple myeloma a history of dehydration with frequent admissions for the same who is here today with complaints of dizziness lightheadedness generalized weakness some difficulty with ambulation due to the weakness she believes she is dehydrated and she did take her blood pressure this morning it was 64/40 feels is increased evidence of peripheral jag ma more so than her usual. No history of DVT or PEs. No fevers chills nausea vomiting sweats or other symptoms reported at this time. MD Complaint: dizziness, lightheadedness, other - Related Data Home Medications Medication Instructions Recorded Confirmed Aspirin [Adult Low Dose Aspirin EC] 81 mg PO DAILY 03/08/16 07/19/18 Acyclovir 400 mg PO BID 07/07/18 07/19/18 Dexamethasone 40 mg PO TH 07/07/18 07/19/18 Ergocalciferol (Vitamin D2) 50,000 unit PO WE 07/07/18 07/19/18 [Vitamin D2] Magnesium Oxide 400 mg PO DAILY 07/07/18 07/19/18 Pantoprazole [Protonix] 40 mg PO HS PRN 07/07/18 07/19/18 Sulfamethox-Tmp 800-160Mg [Bactrim 1 tab PO MOWEFR 07/07/18 07/19/18 DS 800-160 mg] Acetaminophen-Codeine 300-30mg 1 tab PO HS PRN 07/19/18 07/19/18 [Tylenol #3] Previous Rx's Medication Instructions Recorded Atorvastatin [Lipitor] 40 mg PO DAILY #30 tab 06/24/18 Midodrine [ProAmatine] 5 mg PO AC-BID #60 tab 06/24/18 Allergies Allergy/AdvReac Type Severity Reaction Status Date / Time No Known Allergies Allergy Verified 07/19/18 13:53 Review of Systems ROS Statement: Those systems with pertinent positive or pertinent negative responses have been documented in the HPI. ROS Other: All systems not noted in ROS Statement are negative. Past Medical History Past Medical History: Cancer Additional Past Medical History / Comment(s): Blood clot in Left eye (origin unknown)...blood work/dx tests such as carotid u/s performed to determine etiology but remains unknown, multiple myloma, acute kindney injury History of Any Multi-Drug Resistant Organisms: None Reported Past Surgical History: Bariatric Surgery, Orthopedic Surgery, Tonsillectomy Additional Past Surgical History / Comment(s): Right knee meniscus repair (Feb 2016), Bariatric Lap band May 2009, bilateral cataract surgery (November 2013), Tonsillectomy 1959's, lin carpal tunnel, dialysis port right side removed 06/2018 Past Anesthesia/Blood Transfusion Reactions: No Reported Reaction Additional Past Anesthesia/Blood Transfusion Reaction / Comment(s): No hx of blood transfusion Past Psychological History: No Psychological Hx Reported Smoking Status: Never smoker Past Alcohol Use History: None Reported Past Drug Use History: None Reported - Past Family History Father History Unknown: Yes Family Medical History: Unable to Obtain Additional Family Medical History / Comment(s): does not know who her biologic father is Mother Family Medical History: No Reported History Additional Family Medical History / Comment(s): no hx of cancer or heart dis ease. Reports no family hx of cancer or heart disease General Exam - General Exam Comments Initial Comments: This is a well-developed well-nourished awake alert oriented 3 he male Limitations: no limitations General appearance: alert, in no apparent distress Head exam: Present: atraumatic, normocephalic, normal inspection Eye exam: Present: normal appearance, PERRL, EOMI. Absent: scleral icterus, conjunctival injection, periorbital swelling ENT exam: Present: mucous membranes dry Neck exam: Present: normal inspection. Absent: tenderness, meningismus, lymphadenopathy Respiratory exam: Present: rales, decreased breath sounds. Absent: respiratory distress, wheezes, rhonchi, stridor Cardiovascular Exam: Present: normal rhythm, tachycardia. Absent: systolic murmur, diastolic murmur, rubs, gallop, clicks GI/Abdominal exam: Present: soft, normal bowel sounds. Absent: distended, tenderness, guarding, rebound, rigid Extremities exam: Present: full ROM, normal capillary refill, pedal edema. Absent: tenderness, joint swelling, calf tenderness Back exam: Present: normal inspection Neurological exam: Present: alert, oriented X3, CN II-XII intact Psychiatric exam: Present: normal affect, normal mood Skin exam: Present: warm, dry, intact, normal color. Absent: rash Course Vital Signs 07/19/18 07/19/18 07/19/18 13:41 14:10 14:15 Temperature 97.7 F Pulse Rate 103 H 81 81 Respiratory 20 18 18 Rate Blood Pressure 87/49 89/54 90/54 O2 Sat by Pulse 98 97 97 Oximetry 07/19/18 07/19/18 15:00 17:22 Temperature Pulse Rate 78 81 Respiratory 12 18 Rate Blood Pressure 112/64 118/72 O2 Sat by Pulse 96 100 Oximetry - Reevaluation(s) Reevaluation #1: 07/19/18 18:06 Patient was feeling somewhat better after IV hydration. Her blood pressure and pulse rate did improve Medical Decision Making - Medical Decision Making I did discuss the findings with patient and her as well as with the admitting service physician patient will be admitted consultation by cardiology as well as oncology patient does see Dr. Rahman as well as Dr. Pizarro - Lab Data Result diagrams: 07/19/18 14:10 07/19/18 14:10 Lab Results 07/19/18 07/19/18 07/19/18 Range/Units 14:10 14:10 14:10 WBC 11.2 H (3.8-10.6) k/uL RBC 3.23 L (3.80-5.40) m/uL Hgb 9.1 L (11.4-16.0) gm/dL Hct 27.3 L (34.0-46.0) % MCV 84.3 (80.0-100.0) fL MCH 28.2 (25.0-35.0) pg MCHC 33.5 (31.0-37.0) g/dL RDW 17.0 H (11.5-15.5) % Plt Count 469 H (150-450) k/uL Neutrophils % 70 % Lymphocytes % 17 % Monocytes % 8 % Eosinophils % 1 % Basophils % 0 % Neutrophils # 7.8 H (1.3-7.7) k/uL Lymphocytes # 1.9 (1.0-4.8) k/uL Monocytes # 0.9 (0-1.0) k/uL Eosinophils # 0.1 (0-0.7) k/uL Basophils # 0.0 (0-0.2) k/uL Anisocytosis Slight Sodium (137-145) mmol/L Potassium (3.5-5.1) mmol/L Chloride (98-107) mmol/L Carbon Dioxide (22-30) mmol/L Anion Gap mmol/L BUN (7-17) mg/dL Creatinine (0.52-1.04) mg/dL Est GFR (CKD-EPI)AfAm (>60 ml/min/1.73 sqM) Est GFR (CKD-EPI)NonAf (>60 ml/min/1.73 sqM) Glucose (74-99) mg/dL Calcium (8.4-10.2) mg/dL Magnesium (1.6-2.3) mg/dL Total Bilirubin (0.2-1.3) mg/dL AST (14-36) U/L ALT (9-52) U/L Alkaline Phosphatase (38-126) U/L Total Creatine Kinase 48 (30-135) U/L CK-MB (CK-2) 1.8 (0.0-2.4) ng/mL CK-MB (CK-2) Rel Index 3.8 Troponin I 0.059 H* (0.000-0.034) ng/mL NT-Pro-B Natriuret Pep 75950 pg/mL Total Protein (6.3-8.2) g/dL Albumin (3.5-5.0) g/dL Cortisol ug/dL 07/19/18 07/19/18 Range/Units 14:10 14:10 WBC (3.8-10.6) k/uL RBC (3.80-5.40) m/uL Hgb (11.4-16.0) gm/dL Hct (34.0-46.0) % MCV (80.0-100.0) fL MCH (25.0-35.0) pg MCHC (31.0-37.0) g/dL RDW (11.5-15.5) % Plt Count (150-450) k/uL Neutrophils % % Lymphocytes % % Monocytes % % Eosinophils % % Basophils % % Neutrophils # (1.3-7.7) k/uL Lymphocytes # (1.0-4.8) k/uL Monocytes # (0-1.0) k/uL Eosinophils # (0-0.7) k/uL Basophils # (0-0.2) k/uL Anisocytosis Sodium 128 L (137-145) mmol/L Potassium 4.8 (3.5-5.1) mmol/L Chloride 95 L (98-107) mmol/L Carbon Dioxide 24 (22-30) mmol/L Anion Gap 9 mmol/L BUN 25 H (7-17) mg/dL Creatinine 2.05 H (0.52-1.04) mg/dL Est GFR (CKD-EPI)AfAm 31 (>60 ml/min/1.73 sqM) Est GFR (CKD-EPI)NonAf 27 (>60 ml/min/1.73 sqM) Glucose 106 H (74-99) mg/dL Calcium 9.0 (8.4-10.2) mg/dL Magnesium 2.3 (1.6-2.3) mg/dL Total Bilirubin 0.3 (0.2-1.3) mg/dL AST 28 (14-36) U/L ALT 23 (9-52) U/L Alkaline Phosphatase 223 H (38-126) U/L Total Creatine Kinase (30-135) U/L CK-MB (CK-2) (0.0-2.4) ng/mL CK-MB (CK-2) Rel Index Troponin I (0.000-0.034) ng/mL NT-Pro-B Natriuret Pep pg/mL Total Protein 5.6 L (6.3-8.2) g/dL Albumin 3.1 L (3.5-5.0) g/dL Cortisol 18 ug/dL - EKG Data -: EKG Interpreted by Me (EKG showed normal sinus rhythm 86. Interval 180 QRS 88) EKG Comments: QT since QTC 14/500 low-voltage QRS prolonged QT abnormal QRS-T angle - Radiology Data Radiology results: report reviewed (I did review the imaging and report evidence of CHF with small pleural effusions bilaterally.), image reviewed Disposition Clinical Impression: CHF (congestive heart failure), Multiple myeloma, Dehydration, Hypotensive episode, Renal insufficiency syndrome, Anemia Disposition: ADMITTED IP TO THIS [facility] Condition: Fair Referrals: Cj Carroll MD [Primary Care Provider] - 1-2 days
[2018-07-19] MEDS ORDERED: SODIUM CHLORIDE 0.9% 1,000 ML IV STA ×2 (14:30)
[2018-07-19] MEDS ORDERED: SODIUM CHLORIDE 0.9% 500 ML 500 ML IV STA (14:30)
[2018-07-19 14:36] LABS: Albumin 3.1 g/dL (3.5-5.0); Magnesium 2.3 mg/dL (1.6-2.3); Potassium 4.8 mmol/L (3.5-5.1); Total Bilirubin 0.3 mg/dL (0.2-1.3); Total Protein 5.6 g/dL (6.3-8.2)
--- NOTE | 2018-07-19 14:54 | XR ---
EXAMINATION TYPE: XR chest 2V DATE OF EXAM: 07/19/2018 COMPARISON: Chest x-ray July 12, 2018. HISTORY: Cough and hypotension. TECHNIQUE: Frontal and lateral views of the chest are obtained. FINDINGS: The cardiac silhouette size remains mildly enlarged. There are new small to tiny bilateral pleural effusions with associated bibasilar atelectasis and/or infiltrate. Upper lungs are clear wit hout pneumothorax. The osseous structures remain demineralized. Lap band device epigastric region is redemonstrated. IMPRESSION: Correlate for CHF exacerbation as there is persistent mild cardiomegaly with new small t o tiny bilateral pleural effusions.
[2018-07-19 15:05] LABS: Creatine Kinase MB 1.8 ng/mL (0.0-2.4)
[2018-07-19 15:07] LABS: Troponin I 0.059 ng/mL (0.000-0.034)
--- NOTE | 2018-07-19 15:59 | US ---
EXAMINATION TYPE: US venous doppler duplex LE DATE OF EXAM: 07/19/2018 3:46 PM COMPARISON: CLINICAL HISTORY: Pain. Bilateral leg swelling since last night. No hx of DVT in legs. On baby aspi rin. SIDE PERFORMED: Bilateral TECHNIQUE: The lower extremity deep venous system is examined utilizing real time linear array sonog zack with graded compression, doppler sonography and color-flow sonography. VESSELS IMAGED: External Iliac Vein (EIV) Common Femoral Vein Deep Femoral Vein Greater Saphenous Vein * Femoral Vein Popliteal Vein Small Saphenous Vein * Proximal Calf Veins (* superficial vessels) Grayscale, color doppler, spectral doppler imaging performed of the deep veins of the lower extremiti es. There is normal flow, compressibility, vascular waveforms. Right Leg: Negative for DVT, prominent lymph nodes seen in groin Left Leg: Negative for DVT, prominent lymph nodes seen in groin IMPRESSION: No sonographic evidence of deep venous arthrosis within either bilateral lower extremity prominent superficial inguinal lymph nodes are seen bilaterally that are nonenlarged. These may be pr ominent and reactive given the lower extremity cellulitis.
[2018-07-19] MEDS ORDERED: PANTOPRAZOLE 40 MG TABLET PO PRN (18:14)
[2018-07-19] MEDS ORDERED: FUROSEMIDE 10 MG/ML 4 ML VIAL IV SCH (18:15)
--- NOTE | 2018-07-19 18:31 | P.HPIM ---
History of Present Illness H&P Date: 07/19/18 Chief Complaint: Lightheadedness 58-year-old female with PMH of gastric lap band bariatric surgery, acute renal failure requiring dialysis on a Tuesday schedule, recent diagnosis of multiple myeloma presents to the ED for lightheadedness. Patient states that she woke up feeling fine this morning with a BP of 100/68. She was able to you breakfast and take a shower. Patient felt lightheaded coming out of the shower and measured a BP of 60/40. Following that, patient went to work, felt dizzy as she was walking down 2 flights of stairs which prompted her to come to the ED. Patient reports drinking plenty of water, drinks about 40 ounces of water daily. Patient also reports 2 days of worsening lower extremity swelling. Patient reports headaches that are chronic in nature. She denies any nausea or vomiting, fever, cough, chest pain, shortness of breath, palpitations. Patient reports no changes in urination. Her dialysis catheter was recently taken out on July 04 and she has been producing urine sense, more at night. Patient reports constipation, last bowel movement was July 11. She reports a decrease in appetite. Of note, patient has recently been taken off of dexamethasone since 07/05/2017. In the ED, vital signs were stable, patient had a BP as low as 87/49. CBC showed leukocytosis of 11.2, anemia of hemoglobin 9.1, platelet count of 469. CMP showed a sodium of 128, chloride of 95, BUN of 25, creatinine of 2.05. Alkaline phosphatase was 223. Troponin was 0.059, EKG showing normal sinus rhythm with low-voltage QRS. BNP was 18,600. Cortisol was 18. Chest x-ray showed CHF exacerbation. Venous duplex was negative for DVT. Patient was admitted for lightheadedness, troponin elevation with legal nurse consultant. Oncology is consulted for continuity of care. Review of Systems Pertinent positives and negatives as discussed in HPI, a complete review of systems was performed and all other systems are negative. All systems: negative Past Medical History Past Medical History: Cancer Additional Past Medical History / Comment(s): Blood clot in Left eye (origin unknown)...blood work/dx tests such as carotid u/s performed to determine etiology but remains unknown, multiple myloma, acute kindney injury History of Any Multi-Drug Resistant Organisms: None Reported Past Surgical History: Bariatric Surgery, Orthopedic Surgery, Tonsillectomy Additional Past Surgical History / Comment(s): Right knee meniscus repair (Feb 2016), Bariatric Lap band May 2009, bilateral cataract surgery (November 2013), Tonsillectomy 1959's, lin carpal tunnel, dialysis port right side removed 06/2018 Past Anesthesia/Blood Transfusion Reactions: No Reported Reaction Additional Past Anesthesia/Blood Transfusion Reaction / Comment(s): No hx of blood transfusion Past Psychological History: No Psychological Hx Reported Smoking Status: Never smoker Past Alcohol Use History: None Reported Past Drug Use History: None Reported - Past Family History Father History Unknown: Yes Family Medical History: Unable to Obtain Additional Family Medical History / Comment(s): does not know who her biologic father is Mother Family Medical History: No Reported History Additional Family Medical History / Comment(s): no hx of cancer or heart disease. Reports no family hx of cancer or heart disease Medications and Allergies Home Medications Medication Instructions Recorded Confirmed Type Aspirin [Adult Low Dose Aspirin EC] 81 mg PO DAILY 03/08/16 07/19/18 History Atorvastatin [Lipitor] 40 mg PO DAILY #30 tab 06/24/18 07/19/18 Rx Midodrine [ProAmatine] 5 mg PO AC-BID #60 tab 06/24/18 07/19/18 Rx Acyclovir 400 mg PO BID 07/07/18 07/19/18 History Dexamethasone 40 mg PO TH 07/07/18 07/19/18 History Ergocalciferol (Vitamin D2) 50,000 unit PO WE 07/07/18 07/19/18 History [Vitamin D2] Magnesium Oxide 400 mg PO DAILY 07/07/18 07/19/18 History Pantoprazole [Protonix] 40 mg PO HS PRN 07/07/18 07/19/18 History Sulfamethox-Tmp 800-160Mg [Bactrim 1 tab PO MOWEFR 07/07/18 07/19/18 History DS 800-160 mg] Acetaminophen-Codeine 300-30mg 1 tab PO HS PRN 07/19/18 07/19/18 History [Tylenol #3] Allergies Allergy/AdvReac Type Severity Reaction Status Date / Time No Known Allergies Allergy Verified 07/19/18 13:53 Physical Exam Vitals: Vital Signs Temp Pulse Resp BP Pulse Ox 07/19/18 15:00 78 12 112/64 96 07/19/18 14:15 81 18 90/54 97 07/19/18 14:10 81 18 89/54 97 07/19/18 13:41 97.7 F 103 H 20 87/49 98 Intake and Output 07/19/18 07/19/18 07/19/18 06:59 14:59 22:59 Other: Weight 70.307 kg General: [non toxic], [no distress], [appears at stated age] Derm: [warm], [dry] Head: [atraumatic], [normocephalic], [symmetric] Eyes: [EOMI], [no lid lag], [anicteric sclera] Mouth: [no lip lesion], [mucus membranes moist] Cardiovascular: [S1S2 reg], [no murmur], [positive DP pulse bilateral], Lungs: [Decreased breath sounds bilateral], [no rhonchi, no rales] , [no accessory muscle use] Abdominal: [soft], [ nontender to palpation], [no guarding], [no appreciable organomegaly] Ext: [no gross muscle atrophy], [1+ lower extremity edema], [no contractures] Neuro: [ CN II-XI grossly intact], [no focal neuro deficits] Psych: [Alert], [oriented], [appropriate affect] Results CBC & Chem 7: 07/19/18 14:10 07/19/18 14:10 Labs: Abnormal Lab Results - Last 24 Hours (Table) 07/19/18 07/19/18 07/19/18 Range/Units 14:10 14:10 14:10 WBC 11.2 H (3.8-10.6) k/uL RBC 3.23 L (3.80-5.40) m/uL Hgb 9.1 L (11.4-16.0) gm/dL Hct 27.3 L (34.0-46.0) % RDW 17.0 H (11.5-15.5) % Plt Count 469 H (150-450) k/uL Neutrophils # 7.8 H (1.3-7.7) k/uL Sodium 128 L (137-145) mmol/L Chloride 95 L (98-107) mmol/L BUN 25 H (7-17) mg/dL Creatinine 2.05 H (0.52-1.04) mg/dL Glucose 106 H (74-99) mg/dL Alkaline Phosphatase 223 H (38-126) U/L Troponin I 0.059 H* (0.000-0.034) ng/mL Total Protein 5.6 L (6.3-8.2) g/dL Albumin 3.1 L (3.5-5.0) g/dL Thrombosis Risk Factor Assmnt - Choose All That Apply Any of the Below Risk Factors Present?: Yes Each Factor Represents 1 point: Age 41-60 years, Swollen legs (current) Other Risk Factors: Yes Each Risk Factor Represents 2 Points: Age 61-74 years Thrombosis Risk Factor Assessment Total Risk Factor Score: 4 Thrombosis Risk Factor Assessment Level: Moderate Risk Assessment and Plan Assessment: Assessment and Plan 1. Lightheadedness likely orthostatic, new onset systolic heart failure or rule out ACS 2. Troponin elevation 3. HFpEF 4. Hyponatremia 5. CKD 6. Anemia with thrombocytosis and leukocytosis 7. Multiple myeloma 1. Likely secondary to orthostatic hypotension. BP as low as 87/49 and ED. Echocardiogram in June 2018 shows EF 60-65% with moderate LVH. Plans: Start normal saline at 75 mL per hour. Daily orthostatic vitals. Rule out acute coronary syndrome. Follow cortisol level. Continue Midodrine. Telemetry monitoring. Fall precautions. Follow repeat echocardiogram. 2. Troponin 0.059. Likely leak from CKD and HFpEF. Plans: Trend 2 Trop/EKG to rule out acute coronary syndrome. Follow echocardiogram. Telemetry monitoring. Continue aspirin and Lipitor. Follow cardiology consultation. 3. Echocardiogram in June 2018 shows EF 60-65% with moderate LVH. Chest x-ray showing signs of CHF exacerbation. Lower extremity swelling on physical exam. BNP greater than 18,000. Plans: Recent echocardiogram done, we'll not repeat. Follow-up cardiology consultation. 4. Sodium 128. Likely hypovolemic hyponatremia. Plans: Continue IVF as above. Daily BMP. 5. Creatinine 2.05. Likely secondary to multiple myeloma. Dialysis on Tuesday and Tuesday schedule. Plans: Avoid nephrotoxins. Daily BMP. Follow nephrology consultation. Monitor replace electrolytes. 6. Hemoglobin 9.1, leukocytosis of 11.2, platelet count 469. Unknown reason for leukocytosis, patient afebrile, no signs of infection. Anemia likely secondary to multiple myeloma. Thrombocytosis likely secondary to anemia. Plans: Follow oncology consultation. Transfuse if hemoglobin less than 7. 7. Plans: Follow oncology consultation. DVT prophylaxis: [Heparin] Discussed with: [Patient and his ] Anticipated discharge: [1-2 days] Anticipated discharge place: [Home] A total of [45] minutes was spent on the care of this complex patient more than 50% of the time was spent in counseling and care coordination. Patient admitted for lightheadedness. Found to be hypotensive with troponin elevation. BNP elevated with chest x-ray showing pleural effusion, concerns for new onset CHF. Started on IVF for hypotension and cardiology consulted. Will hold from diuresing due to hypotensive nature and O2 saturation within normal limits. Patient is pending clinical improvement. Likely DC in 1-2 days.
[2018-07-19] MEDS: SODIUM CHLORIDE 0.9% 1,000 ML IV SCH (18:37)
[2018-07-19] MEDS: Acetaminophen-Codeine 300-30mg TAB PO PRN (22:27)
[2018-07-19] MEDS: ACYCLOVIR 200 MG CAP PO SCH (22:27)
[2018-07-19] MEDS: HEPARIN SODIUM,PORCINE 5,000 UNIT/ML 1 ML VIAL SQ SCH (23:49)
[2018-07-20] MEDS ORDERED: MIDODRINE 5 MG TAB PO SCH (07:30)
[2018-07-20] MEDS ORDERED: DEXAMETHASONE 4 MG TAB PO SCH (09:00)
[2018-07-20] MEDS: MAGNESIUM OXIDE 400 MG TAB PO SCH (09:27)
[2018-07-20] MEDS: HEPARIN SODIUM,PORCINE 5,000 UNIT/ML 1 ML VIAL SQ SCH ×3 (09:27→23:07)
[2018-07-20] MEDS: ACYCLOVIR 200 MG CAP PO SCH ×2 (09:27→19:51)
[2018-07-20] MEDS: ATORVASTATIN 40 MG TAB PO SCH (09:27)
[2018-07-20] MEDS: ASPIRIN 81 MG PO SCH (09:27)
[2018-07-20 09:40] LABS: Anisocytosis Slight; HCT 27.8 % (34.0-46.0); HGB 8.6 gm/dL (11.4-16.0); MCH 27.3 pg (25.0-35.0); MCHC 31.1 g/dL (31.0-37.0); MCV 87.8 fL (80.0-100.0); Mean Platelet Volume 6.9; Platelet Count 535 k/uL (150-450); RBC 3.17 m/uL (3.80-5.40); WBC 8.3 k/uL (3.8-10.6)
[2018-07-20 09:55] LABS: Albumin 2.9 g/dL (3.5-5.0); Magnesium 2.3 mg/dL (1.6-2.3); Total Bilirubin 0.3 mg/dL (0.2-1.3); Total Protein 5.4 g/dL (6.3-8.2)
--- NOTE | 2018-07-20 10:08 | P.CRDCN ---
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 Kidney biopsy showed amyloidosis, this was performed on 06/10/2018, patient is on chemotherapy and steroids, who has had frequent admissions to the hospital since her multiple myeloma diagnosis with symptoms of lightheadedness and hypotension. According to the patient, her blood pressure at home was as low as 60 systolic. She states that she has been trying to drink enough fluids, denies any chest di scomfort. Has also noticed recently that her exertional breathing has been more short and usual. Chest x-ray was performed which revealed CHF exacerbation with new small bilateral pleural effusions. Bilateral venous duplex studies negative for DVT. EKG shows a normal sinus rhythm with nonspecific ST-T wave changes. Patient underwent a shoulder and scapula x-ray because of a soft tissue lump n oted in the posterior scapula area, he did reveal some subcutaneous fat fairly well preserved with no specific lytic lesions noted. Echo performed in June of this year did reveal a pericardial effusion, appearance of myocardium consistent with infiltrative cardiomyopathy. EKG showed a normal sinus rhythm with nonspecific ST-T wave changes and low voltage QRS. I pressure on admission 86/40, heart rate in the 90s, afebrile. White blood cell count 8.3, hemoglobin 8.6, platelet count 535. Sodium on admission 128, 134 this morning, potassium 5.0, BUN 23 creatinine 2.0. Troponin 0.059. BNP level 18,600. Patient continues to be on steroids at this time, subcu heparin, IV fluids at 75 mL per hour, Bactrim. Past Medical History Past Medical History: Cancer Additional Past Medical History / Comment(s): Blood clot in Left eye (origin unknown)...blood work/dx tests such as carotid u/s performed to determine etiology but remains unknown, multiple myloma, acute kindney injury History of Any Multi-Drug Resistant Organisms: None Reported Past Surgical History: Bariatric Surgery, Orthopedic Surgery, Tonsillectomy Additional Past Surgical History / Comment(s): Right knee meniscus repair (Feb 2016), Bariatric Lap band May 2009, bilateral cataract surgery (November 2013), Tonsillectomy 1960's, lin carpal tunnel, dialysis port right side removed 2018 Past Anesthesia/Blood Transfusion Reactions: No Reported Reaction Additional Past Anesthesia/Blood Transfusion Reaction / Comment(s): No hx of bl ood transfusion Past Psychological History: No Psychological Hx Reported Smoking Status: Never smoker Past Alcohol Use History: None Reported Past Drug Use History: None Reported - Past Family History Father History Unknown: Yes Family Medical History: Unable to Obtain Additional Family Medical History / Comment(s): does not know who her biologic father is Mother Family Medical History: No Reported History Additional Family Medical History / Comment(s): no hx of cancer or heart disease. Reports no family hx of cancer or heart disease Medications and Allergies Home Medications Medication Instructions Recorded Confirmed Type Aspirin [Adult Low Dose Aspirin EC] 81 mg PO DAILY 03/08/16 07/19/18 History Atorvastatin [Lipitor] 40 mg PO DAILY #30 tab 06/24/18 07/19/18 Rx Midodrine [ProAmatine] 5 mg PO AC-BID #60 tab 06/24/18 07/19/18 Rx Acyclovir 400 mg PO BID 07/07/18 07/19/18 History Dexamethasone 40 mg PO TH 07/07/18 07/19/18 History Ergocalciferol (Vitamin D2) 50,000 unit PO WE 07/07/18 07/19/18 History [Vitamin D2] Magnesium Oxide 400 mg PO DAILY 07/07/18 07/19/18 History Pantoprazole [Protonix] 40 mg PO HS PRN 07/07/18 07/19/18 History Sulfamethox-Tmp 800-160Mg [Bactrim 1 tab PO MOWEFR 07/07/18 07/19/18 History DS 800-160 mg] Acetaminophen-Codeine 300-30mg 1 tab PO HS PRN 07/19/18 07/19/18 History [Tylenol #3] Allergies Allergy/AdvReac Type Severity Reaction Status Date / Time No Known Allergies Allergy Verified 07/19/18 13:53 Physical Exam Vitals: Vital Signs Temp Pulse Pulse Resp BP BP Pulse Ox 07/20/18 04:00 98.1 F 100 16 110/70 95 07/19/18 23:47 98.2 F 81 16 99/62 95 07/19/18 23:29 81 18 07/19/18 22:07 97.3 F L 81 18 112/70 96 07/19/18 21:00 98 F 81 18 100/63 97 07/19/18 18:00 82 18 121/82 95 07/19/18 17:22 81 18 118/72 100 07/19/18 17:00 82 16 117/72 96 07/19/18 16:00 81 14 118/69 96 07/19/18 15:00 78 12 112/64 96 07/19/18 14:15 81 18 90/54 97 07/19/18 14:10 81 18 89/54 97 07/19/18 13:41 97.7 F 103 H 20 87/49 98 Intake and Output 07/19/18 07/20/18 07/20/18 22:59 06:59 14:59 Intake Total 80 80 Balance 80 80 Intake: Intake, IV Titration 80 Amount Sodium Chloride 0.9% 1, 80 000 ml @ 20 mls/hr IV . Q24H [facility] Rx#:[id number] Oral 80 Other: # Voids 1 Weight 68.9 kg PHYSICAL EXAMINATION: GENERAL: 58 year old female in no acute distress at the time of my examination HEENT: Head is atraumatic, normocephalic. Pupils equal, round. Sclera anicteric. Conjunctiva are clear. Mucous membranes of the mouth are moist. Neck is supple. There is no elevated jugular venous pressure. No carotid bruit is heard. HEART EXAMINATION: Heart S1, S2 normal. No murmur or gallop heard. CHEST EXAMINATION: Lungs are clear with diminished air entry to bilateral bases, soft tissue lump at the posterior right scapular area ABDOMEN: Soft, nontender. Bowel sounds are heard. No organomegaly noted. EXTREMITIES: 2+ peripheral pulses with 1+ evidence of peripheral edema and no calf tenderness noted. NEUROLOGIC patient is awake, alert and oriented 3 . . Results 07/20/18 09:23 07/20/18 09:23 Cardiac Enzymes 07/19/18 07/19/18 07/20/18 Range/Units 14:10 14:10 09:23 AST 28 23 (14-36) U/L CK-MB (CK-2) 1.8 (0.0-2.4) ng/mL Troponin I 0.059 H* (0.000-0.034) ng/mL CBC 07/19/18 07/20/18 Range/Units 14:10 09:23 WBC 11.2 H 8.3 (3.8-10.6) k/uL RBC 3.23 L 3.17 L (3.80-5.40) m/uL Hgb 9.1 L 8.6 L (11.4-16.0) gm/dL Hct 27.3 L 27.8 L (34.0-46.0) % Plt Count 469 H 535 H (150-450) k/uL Comprehensive Metabolic Panel 07/19/18 07/20/18 Range/Units 14:10 09:23 Sodium 128 L 134 L (137-145) mmol/L Potassium 4.8 5.0 (3.5-5.1) mmol/L Chloride 95 L 103 (98-107) mmol/L Carbon Dioxide 24 26 (22-30) mmol/L BUN 25 H 23 H (7-17) mg/dL Creatinine 2.05 H 2.07 H (0.52-1.04) mg/dL Glucose 106 H 106 H (74-99) mg/dL Calcium 9.0 9.0 (8.4-10.2) mg/dL AST 28 23 (14-36) U/L ALT 23 26 (9-52) U/L Alkaline Phosphatase 223 H 203 H (38-126) U/L Total Protein 5.6 L 5.4 L (6.3-8.2) g/dL Albumin 3.1 L 2.9 L (3.5-5.0) g/dL Current Medications Generic Name Dose Route Start Last Admin Trade Name Freq PRN Reason Stop Dose Admin Acetaminophen/Codeine Phosphate 1 each 07/19/18 18:14 07/19/18 22:27 Tylenol #3 PO 1 each HS PRN Administration Pain Acyclovir 400 mg 07/19/18 21:00 07/20/18 09:27 Zovirax PO 400 mg BID VIRGIE Administration Aspirin 81 mg 07/20/18 09:00 07/20/18 09:27 Aspirin PO 81 mg DAILY VIRGIE Administration Atorvastatin Calcium 40 mg 07/20/18 09:00 07/20/18 09:27 Lipitor PO 40 mg DAILY VIRGIE Administration Dexamethasone 40 mg 07/20/18 09:00 Hexadrol PO TH VIRGIE Ergocalciferol 50,000 unit 07/26/18 09:00 Vitamin D2 PO WE VIRGIE Heparin Sodium (Porcine) 5,000 unit 07/20/18 00:00 07/20/18 09:27 Heparin SQ 5,000 unit Q8HR VIRGIE Administration Sodium Chloride 1,000 mls @ 20 mls/hr 07/19/18 18:15 07/19/18 18:37 Saline 0.9% IV 20 mls/hr .Q24H VIRGIE Administration Magnesium Oxide 400 mg 07/20/18 09:00 07/20/18 09:27 Mag-Ox PO 400 mg DAILY VIRGIE Administration Midodrine 5 mg 07/20/18 07:30 07/20/18 06:04 Proamatine PO 5 mg AC-BID VIRGIE Administration Pantoprazole Sodium 40 mg 07/19/18 18:14 Protonix PO HS PRN GI Upset Trimethoprim/Sulfamethoxazole 1 each 07/21/18 09:00 Bactrim Ds PO MOWEFR VIRGIE Intake and Output 07/19/18 07/20/18 07/20/18 22:59 06:59 14:59 Intake Total 80 80 Balance 80 80 Intake: Intake, IV Titration 80 Amount Sodium Chloride 0.9% 1, 80 000 ml @ 20 mls/hr IV . Q24H [facility]IRGIE Rx#:[id number] Oral 80 Other: # Voids 1 Weight 68.9 kg 07/20/18 09:23 07/20/18 09:23 EKG Interpretations (text) EKG shows a normal sinus rhythm with nonspecific ST-T wave changes and low voltage QRS Assessment and Plan Plan: Assessment and plan #1 hypotension #2 acute on chronic kidney injury, acute tubular necrosis secondary to nephropathy and recent diagnosis of multiple myeloma/amyloidosis #3 abnormal troponin, likely secondary to hypotension and renal failure #4 congestive heart failure, diastolic acute on chronic. Most recent echo performed in June showed a normal left ventricular systolic function, ASD was noted,Moderate MR, elevated right atrial pressure, appearance of myocardium consistent with infiltrative cardiomyopathy, likely secondary to restrictive pattern secondary to amyloidosis moderate pericardial effusion is noted as well Plan We'll repeat an echocardiogram with Doppler study. Further recommendations to follow. DNP note has been reviewed, I agree with a documented findings and plan of care. Patient was seen and examined.
[2018-07-20] MEDS: Acetaminophen-Codeine 300-30mg TAB PO PRN ×3 (10:15→21:13)
[2018-07-20] MEDS ORDERED: FUROSEMIDE 10 MG/ML 4 ML VIAL IV STA (12:14)
[2018-07-20] MEDS: MIDODRINE 5 MG TAB PO SCH ×2 (13:00→16:47)
[2018-07-20 13:44] VITALS: BMI 24.5
--- NOTE | 2018-07-20 14:16 | P.NPCON ---
History of Present Illness - Reason for Consult acute renal failure - History of Present Illness Reason for consultation: Acute kidney injury History of present illness: Patient is a 58-year-old female seen in renal consultation for acute kidney injury. Patient's creatinine May 2018 was near 1. 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 Patient did receive temporary hemodialysis which was subsequently discontinued as her renal function started to recover. Her creatinine was taking in the range of 1.2-1.3 in June 2018. Patient states she's been receiving chemotherapy for multiple myeloma. She has received 2 doses of Velcade and is also on weekly steroids. She was due to start Revlimid this week. Patient presented to the hospital due to hypotension and dizziness. Patient states her blood pressure at home was in the systolic 60s and she felt dizzy. She denies any falls or syncopal episodes. Patient was taking midodrine outpatient. She has also noticed swelling in her lower extremities for the last 3 days. Ultr asound revealed no evidence of DVT. Chest x-ray suggestive is suggestive of vascular congestion with bilateral pleural effusions. Renal function this admission has been stable. Creatinine 2.07 today. Patient's echocardiogram from June 2018 revealed ejection fraction of 60-65%. There was evidence of infiltrative cardiomyopathy as well as moderate pericardial effusion. She has been voiding. No hematuria or dysuria. No vomiting or diarrhea. No fever or chills. Vital signs are stable. General: The patient appeared well nourished and normally developed. HEENT: Head exam is unremarkable. Neck is without jugular venous distension. LUNGS: Breath sounds decreased. HEART: Rate and Rhythm are regular. First and second heart sounds normal. No murmurs, rubs or gallops. ABDOMEN: Abdominal exam reveals normal bowel sounds. Non-tender and non- distended. No evidence of peritonitis. EXTREMITITES: 1+ edema. Past Medical History Past Medical History: Cancer Additional Past Medical History / Comment(s): Blood clot in Left eye (origin unknown)...blood work/dx tests such as carotid u/s performed to determine etiology but remains unknown, multiple myloma, acute kindney injury History of Any Multi-Drug Resistant Organisms: None Reported Past Surgical History: Bariatric Surgery, Orthopedic Surgery, Tonsillectomy Additional Past Surgical History / Comment(s): Right knee meniscus repair (Feb 2016), Bariatric Lap band May 2009, bilateral cataract surgery (November 2013), Tonsillectomy 1960's, lin carpal tunnel, dialysis port right side removed 06/15 019 Past Anesthesia/Blood Transfusion Reactions: No Reported Reaction Additional Past Anesthesia/Blood Transfusion Reaction / Comment(s): No hx of blo od transfusion Past Psychological History: No Psychological Hx Reported Smoking Status: Never smoker Past Alcohol Use History: None Reported Past Drug Use History: None Reported - Past Family History Father History Unknown: Yes Family Medical History: Unable to Obtain Additional Family Medical History / Comment(s): does not know who her biologic father is Mother Family Medical History: No Reported History Additional Family Medical History / Comment(s): no hx of cancer or heart disease. Reports no family hx of cancer or heart disease Medications and Allergies Home Medications Medication Instructions Recorded Confirmed Type Aspirin [Adult Low Dose Aspirin EC] 81 mg PO DAILY 03/08/16 07/19/18 History Atorvastatin [Lipitor] 40 mg PO DAILY #30 tab 06/24/18 07/19/18 Rx Midodrine [ProAmatine] 5 mg PO AC-BID #60 tab 06/24/18 07/19/18 Rx Acyclovir 400 mg PO BID 07/07/18 07/19/18 History Dexamethasone 40 mg PO TH 07/07/18 07/19/18 History Ergocalciferol (Vitamin D2) 50,000 unit PO WE 07/07/18 07/19/18 History [Vitamin D2] Magnesium Oxide 400 mg PO DAILY 07/07/18 07/19/18 History Pantoprazole [Protonix] 40 mg PO HS PRN 07/07/18 07/19/18 History Sulfamethox-Tmp 800-160Mg [Bactrim 1 tab PO MOWEFR 07/07/18 07/19/18 History DS 800-160 mg] Acetaminophen-Codeine 300-30mg 1 tab PO HS PRN 07/19/18 07/19/18 History [Tylenol #3] Allergies Allergy/AdvReac Type Severity Reaction Status Date / Time No Known Allergies Allergy Verified 07/19/18 13:53 Physical Exam Vitals: Vital Signs Temp Pulse Pulse Resp BP BP BP 07/20/18 08:00 98.1 F 103 H 16 109/57 07/20/18 04:00 98.1 F 100 16 110/70 07/19/18 23:47 98.2 F 81 16 99/62 07/19/18 23:29 81 18 07/19/18 22:07 97.3 F L 81 18 112/70 07/19/18 21:00 98 F 81 18 100/63 07/19/18 18:00 82 18 121/82 07/19/18 17:22 81 18 118/72 07/19/18 17:00 82 16 117/72 07/19/18 16:00 81 14 118/69 07/19/18 15:00 78 12 112/64 07/19/18 14:15 81 18 90/54 07/19/18 14:10 81 18 89/54 Pulse Ox 07/20/18 08:00 94 L 07/20/18 04:00 95 07/19/18 23:47 95 07/19/18 23:29 07/19/18 22:07 96 07/19/18 21:00 97 07/19/18 18:00 95 07/19/18 17:22 100 07/19/18 17:00 96 07/19/18 16:00 96 07/19/18 15:00 96 07/19/18 14:15 97 07/19/18 14:10 97 Intake and Output 07/19/18 07/20/18 07/20/18 22:59 06:59 14:59 Intake Total 80 80 480 Balance 80 80 480 Intake: Intake, IV Titration 80 Amount Sodium Chloride 0.9% 1, 80 000 ml @ 20 mls/hr IV . Q24H [facility] Rx#:[id number] Oral 80 480 Other: Voiding Method Toilet # Voids 1 2 Weight 68.9 kg 68.9 kg Results - Lab Results Most recent lab results Calcium 9.0 mg/dL (8.4-10.2) 07/20/18 09:23 Magnesium 2.3 mg/dL (1.6-2.3) 07/20/18 09:23 07/20/18 09:23 07/20/18 09:23 Assessment and Plan Plan: Assessment: 1. Acute kidney injury mostly prerenal secondary to cardiorenal syndrome. Creatinine stable at 2.07 today. Recently her creatinine has been in the range of 1.2-1.4. 2. Multiple myeloma maintained on chemotherapy outpatient. Renal biopsy revealed renal amyloid. Kidney biopsy was done in May 2018. 3. Volume overload with evidence of bilateral pleural effusions on chest x-ray. 4. Pericardial effusion noted on echocardiogram done last month. 5. Anemia related to underlying multiple myeloma. Rule out iron deficiency. 6. Hypotension maintained on midodrine. 7. Hypervolemic hyponatremia. Plan: Start Lasix 40 mg IV twice daily. Follow-up echocardiogram. Maintain midodrine. Check a.m. cortisol level. Check iron studies. Patient being considered for transfer to [facility]. Thank you for the consultation. I will continue to follow the patient with you during her hospital stay.
[2018-07-20] MEDS ORDERED: BISACODYL 5 MG TABLET.DR PO PRN (15:00)
[2018-07-20] MEDS: FUROSEMIDE 10 MG/ML 4 ML VIAL IV SCH ×2 (15:12→19:50)
--- NOTE | 2018-07-20 15:49 | US ---
EXAMINATION TYPE: US mass soft tissue chest/back DATE OF EXAM: 07/20/2018 COMPARISON: NONE CLINICAL HISTORY: Palpable mass right scapula, please ultrasound. Patient states having a palpable on posterior upper back/scapula. Patient states area is painful. Area of concerned scanned. No prominent masses or lesions seen. Contralateral images taken. IMPRESSION: 1. Negative ultrasound of the patient's reported palpable abnormality. Clinical management will be re quired.
--- NOTE | 2018-07-20 19:12 | ECHOF ---
Referral Reason:assess lvf MEASUREMENTS -------- HEIGHT: 167.6 cm WEIGHT: 68.5 kg BP: IVSd: 1.4 cm (0.6 - 1.1) LVIDd: 3.2 cm (3.9 - 5.3) LVPWd: 1.3 cm (0.6 - 1.1) IVSs: 1.5 cm LVIDs: 2.4 cm LVPWs: 1.8 cm IVSd: 1.0 cm (0.6 - 1.1) MV E Quinn: 1.04 m/s MV DecT: 195 ms MV A Quinn: 0.37 m/s MV E/A Ratio: 2.78 RAP: 20.00 mmHg RVSP: 48.46 mmHg FINDINGS -------- Sinus rhythm. Limited Study The left ventricular size is normal. There is moderate concentric left ventricular hypertrophy. O verall left ventricular systolic function is normal with, an EF between 65 - 70 %. Possible cardiac amyloid. Severe mitral regurgitation is present. Mild tricuspid regurgitation present. There is mild pulmonary hypertension. The right ventricular systolic pressure, as measured by Doppler, is 48.46mmHg. There is a small, generalized pericardial effusion present. CONCLUSIONS -------- 1. Sinus rhythm. 2. Limited Study 3. The left ventricular size is normal. 4. There is moderate concentric left ventricular hypertrophy. 5. Overall left ventricular systolic function is normal with, an EF between 65 - 70 %. 6. Possible cardiac amyloid. 7. Severe mitral regurgitation is present. 8. Mild tricuspid regurgitation present. 9. There is mild pulmonary hypertension. 10. The right ventricular systolic pressure, as measured by Doppler, is 48.46mmHg. 11. There is a small, generalized pericardial effusion present. [employer] SUPERVISOR: Deja Hernandez RD
[2018-07-20] MEDS: SODIUM CHLORIDE 0.9% 1,000 ML IV SCH (19:42)
--- NOTE | 2018-07-20 20:36 | P.PN ---
Subjective Progress Note Date: 07/20/18 (Delayed charting patient seen at 10:45 AM) Principal diagnosis: Hypotension, fluid overload Patient is a 58-year-old female well-known to our service from many recent hospitalization currently undergoing treatment for multiple myeloma with deposition in the kidney requiring dialysis which has since been discontinued, diastolic cardiomyopathy discovered last visit with concern for infiltrative cardiomyopathy, hypotension, and perimenopausal symptoms who presented to the ER with complaints of lightheadedness and low blood pressure. On arrival to the ER she was tachycardic with pulse of 103 and a blood pressure of 87/49. Laboratory analysis showed an elevated white blood cell count of 11.2, hemoglobin 9.1 which appears at baseline, thrombocytosis with platelet count of 469, and creatinine of 2.05, sodium of 128. There was concern for fluid overload due to chest x-ray showing pulmonary edema. Patient was started on IV fluids for concern over her hypotension. She was admitted for further monitoring. Patient seen and examined at bedside. She complains of pain over her left scapular area where there has been a mass for 2 weeks. She has had workup as an outpatient with x-rays which showed no acute process, computed tomography scan of the chest also did not mention the mass was completed on 07/07. She also complains of lightheaded and dizziness. She states her blood pressure drops abruptly despite her taking her Midrin. She also complains of shortness of breath and worsening fluid overload over the last several days. Objective - Vital Signs Vital signs: Vital Signs Temp 98.4 F 07/20/18 19:44 Pulse 82 07/20/18 19:44 Resp 20 07/20/18 19:44 BP 111/71 07/20/18 19:44 Pulse Ox 95 07/20/18 19:44 Intake & Output 07/20/18 07/20/18 07/21/18 06:59 18:59 06:59 Intake Total 160 960 Balance 160 960 Weight 68.9 kg 68.9 kg Intake: Intake, IV Titration 80 240 Amount Sodium Chloride 0.9% 1, 80 240 000 ml @ 20 mls/hr IV . Q24H [facility] Rx#:[id number] Oral 80 720 Other: Voiding Method Toilet # Voids 1 2 - Exam General: Ill-appearing, no distress, appears older than stated age Derm: Area over left scapula erythematous without warmth, hard of hearing, skin flaking. warm, dry Head: atraumatic, normocephalic, symmetric Eyes: EOMI, no lid lag, anicteric sclera Mouth: no lip lesion, mucus membranes moist Cardiovascular: S1S2 reg, no murmur, positive posterior tibial pulse bilateral, Lungs: crackles bilateral bases , no accessory muscle use Abdominal: soft, nontender to palpation, no guarding, no appreciable organomegaly Ext: no gross muscle atrophy, 3+ edema, no contractures Neuro: CN II-XI grossly intact, no focal neuro deficits Psych: Alert, oriented, anxious - Labs CBC & Chem 7: 07/20/18 09:23 07/20/18 09:23 Labs: Abnormal Lab Results - Last 24 Hours (Table) 07/20/18 07/20/18 07/20/18 Range/Units 09:23 09:23 09:23 RBC 3.17 L (3.80-5.40) m/uL Hgb 8.6 L (11.4-16.0) gm/dL Hct 27.8 L (34.0-46.0) % RDW 17.0 H (11.5-15.5) % Plt Count 535 H (150-450) k/uL Sodium 134 L (137-145) mmol/L BUN 23 H (7-17) mg/dL Creatinine 2.07 H (0.52-1.04) mg/dL Glucose 106 H (74-99) mg/dL Alkaline Phosphatase 203 H (38-126) U/L Troponin I 0.068 H* (0.000-0.034) ng/mL Total Protein 5.4 L (6.3-8.2) g/dL Albumin 2.9 L (3.5-5.0) g/dL Assessment and Plan Assessment: Acute exacerbation of diastolic congestive heart failure likely secondary to res trictive cardiomyopathy due to infiltrative disease with moderate pericardial effusion -Discussed with cardiology and oncology at [facility] multiple times throughout the day -IV Lasix 1 -Secondary to hypotension unable to administer beta donavan -Likely will need to be transferred to a tertiary care center Hypotension -Undetermined etiology -Likely unrelated to her adrenal insufficiency as patient has been off of steroids and was only taking them once weekly dexamethasone -Cortisol level normal -Continue with Midodrine -Likely may be related to cardiomyopathy Right shoulder mass - x-ray negative as outpatient - check ultrasound 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 She would likely benefit from plasmapheresis. This will be discussed with the patient and her by oncology. Acute kidney injury on chronic kidney disease related to multiple myeloma -Nephrology recommendations -Monitor urine output -Monitor creatinine Hyponatremia, hypervolemic -Improved -Continue with Lasix -Repeat BMP in a.m. Chronically elevated troponin, likely secondary to renal failure and hypotension -Flat and not consistent with acute ischemia -Cardiology recommendations appreciated DVT prophylaxis: Heparin Discussed with: Patient, Cardio, Heme/onc, , nursing Anticipated discharge: anticipate will need transfer to [facility], awaiting final input from oncology A total of 45 minutes was spent on the care of this complex patient more than 50% of the time was spent in counseling and care coordination.
[2018-07-21 00:57] LABS: Iron Saturation 12.2 (12.00-45.00)
[2018-07-21] MEDS: MIDODRINE 5 MG TAB PO SCH ×3 (06:20→17:39)
[2018-07-21 06:42] LABS: Calcium 8.8 mg/dL (8.4-10.2); Magnesium 2.2 mg/dL (1.6-2.3); Potassium 4.6 mmol/L (3.5-5.1)
[2018-07-21] MEDS ORDERED: SULFAMETHOX-TMP 800-160MG 1 EACH TAB PO SCH (09:00)
--- NOTE | 2018-07-21 09:18 | P.PN ---
Subjective Patient is seen in follow for acute kidney injury. Patient's creatinine in May 2018 was near 1. Patient was admitted at this facility with creatinine of greater than 9 in May 2018. At that time a kidney biopsy was performed which revealed renal amyloid. Patient's been undergoing chemotherapy outpatient for multiple myeloma. Patient presented to the hospital with dizziness and hypotension. She had also developed lower extremity edema. She is maintained on Lasix 40 mg IV twice daily. Urine output is good. Edema is improving. Vital signs are stable. General: The patient appeared well nourished and normally developed. HEENT: Head exam is unremarkable. Neck is without jugular venous distension. LUNGS: Lungs are clear to auscultation and percussion. Breath sounds decreased. HEART: Rate and Rhythm are regular. First and second heart sounds normal. No murmurs, rubs or gallops. ABDOMEN: Abdominal exam reveals normal bowel sounds. Non-tender and non- distended. No evidence of peritonitis. EXTREMITITES: 1+ edema. Objective - Vital Signs Vital signs: Vital Signs Temp 98.4 F 07/21/18 04:00 Pulse 86 07/21/18 04:00 Resp 16 07/21/18 04:00 BP 97/60 07/21/18 04:00 Pulse Ox 94 L 07/21/18 04:00 Intake & Output 07/20/18 07/21/18 07/21/18 18:59 06:59 18:59 Intake Total 960 300 420 Output Total 2150 Balance 960 -1850 420 Weight 68.9 kg 77 kg Intake: Intake, IV Titration 240 160 Amount Sodium Chloride 0.9% 1, 240 160 000 ml @ 20 mls/hr IV . Q24H [facility] Rx#:[id number] Oral 720 140 420 Output: Urine 2150 Other: Voiding Method Toilet Toilet # Voids 2 1 - Labs CBC & Chem 7: 07/20/18 09:23 07/21/18 05:53 Labs: Abnormal Lab Results - Last 24 Hours (Table) 07/20/18 07/20/18 07/20/18 Range/Units 09:23 09:23 09:23 RBC 3.17 L (3.80-5.40) m/uL Hgb 8.6 L (11.4-16.0) gm/dL Hct 27.8 L (34.0-46.0) % RDW 17.0 H (11.5-15.5) % Plt Count 535 H (150-450) k/uL Sodium 134 L (137-145) mmol/L BUN 23 H (7-17) mg/dL Creatinine 2.07 H (0.52-1.04) mg/dL Glucose 106 H (74-99) mg/dL Iron (50-170) ug/dL Ferritin (10.0-291.0) ng/mL Alkaline Phosphatase 203 H (38-126) U/L Troponin I 0.068 H* (0.000-0.034) ng/mL Total Protein 5.4 L (6.3-8.2) g/dL Albumin 2.9 L (3.5-5.0) g/dL 07/20/18 07/21/18 Range/Units 09:23 05:53 RBC (3.80-5.40) m/uL Hgb (11.4-16.0) gm/dL Hct (34.0-46.0) % RDW (11.5-15.5) % Plt Count (150-450) k/uL Sodium 133 L (137-145) mmol/L BUN 23 H (7-17) mg/dL Creatinine 2.03 H (0.52-1.04) mg/dL Glucose (74-99) mg/dL Iron 30 L (50-170) ug/dL Ferritin 894.2 H (10.0-291.0) ng/mL Alkaline Phosphatase (38-126) U/L Troponin I (0.000-0.034) ng/mL Total Protein (6.3-8.2) g/dL Albumin (3.5-5.0) g/dL Assessment and Plan Plan: Assessment: 1. Acute kidney injury mostly prerenal secondary to cardiorenal syndrome. Creatinine stable at 2.03 today. Recently her creatinine has been in the range of 1.2-1.4. 2. Multiple myeloma maintained on chemotherapy outpatient. Renal biopsy revealed renal amyloid. Kidney biopsy was done in May 2018. 3. Volume overload with evidence of bilateral pleural effusions on chest x-ray. 4. Pericardial effusion. 5. Anemia related to underlying multiple myeloma. Iron deficiency noted. 6. Hypotension maintained on midodrine. Cortisol level normal. 7. Hypervolemic hyponatremia. Stable. 8. Preserved ejection fraction with severe mitral regurgitation. Plan: Maintain Lasix 40 mg IV twice daily. IV iron 3 doses. First dose today. Case discussed with oncology. There is concern for infiltrative cardiomyopathy from underlying multiple myeloma. In this scenario, she may benefit from pl asmapheresis. She will be transferred to [facility] today as plasmapheresis is not available at this facility.
[2018-07-21] MEDS ORDERED: SODIUM FERRIC GLUCONAT-SUCROSE 125 MG in SODIUM CHLORIDE 0.9% 100 ML IVPB SCH (09:30)
[2018-07-21] MEDS ORDERED: LACTULOSE 20 GM/30 ML CUP PO ONE (10:19)
[2018-07-21] MEDS: FUROSEMIDE 10 MG/ML 4 ML VIAL IV SCH ×2 (10:34→20:00)
[2018-07-21] MEDS: ASPIRIN 81 MG PO SCH (10:35)
[2018-07-21] MEDS: MAGNESIUM OXIDE 400 MG TAB PO SCH (10:35)
[2018-07-21] MEDS: ATORVASTATIN 40 MG TAB PO SCH (10:35)
[2018-07-21] MEDS: HEPARIN SODIUM,PORCINE 5,000 UNIT/ML 1 ML VIAL SQ SCH ×2 (10:35→17:39)
[2018-07-21] MEDS: ACYCLOVIR 200 MG CAP PO SCH ×2 (10:35→20:01)
--- NOTE | 2018-07-21 10:59 | P.DS ---
Providers Date of admission: 07/19/18 18:11 Expected date of discharge: 07/21/18 Attending physician: Kimberly Weston MD Consults: 07/19/18 18:11 Consult Physician Routine Consulting Provider: Pb Hernandez Consult Reason/Comments: Multiple myeloma, CHF Do you want consulting provider notified?: Yes Consult Physician Routine Consulting Provider: Jimi Pizarro Consult Reason/Comments: CHF, history of multiple while on the Do you want consulting provider notified?: Yes 07/20/18 14:22 Consult Physician Routine Consulting Provider: Iraj Munguia Consult Reason/Comments: CKD Do you want consulting provider notified?: Already Contacted Primary care physician: [facility] Course: Discharge Diagnosis: Acute exacerbation of restrictive cardiomyopathy, ejection fraction 65-70% with concentric LVH, concern for possible amyloidosis Hypotension, undetermined etiology Multiple myeloma, renal amyloid, history of dialysis Right scapular soft tissue mass Acute kidney injury on chronic kidney disease related to light chain deposition Hyponatremia Chronically elevated troponin secondary to renal failure, cardiomyopathy, and hypotension Normocytic anemia Thrombocytosis Moderate protein calorie malnutrition Constipation Hospital Course: Patient is a 58-year-old female well-known to our service from multiple recent hospitalizations currently undergoing treatment for multiple myeloma (was on velcade and dex- she felt hypotension due to velcade, was awaiting to start revlamid), AL- amyloid on the kideny biopsy due to multiple myeloma with hx of renal dialysis which has since been discontinued, diastolic cardiomyopathy discovered last visit with concern for infiltrative cardiomyopathy, hypotension, and perimenopausal symptoms who presented to the ER with complaints of lightheadedness and low blood pressure. On arrival to the ER she was tachycardic with pulse of 103 and a blood pressure of 87/49. Laboratory analysis showed an elevated white blood cell count of 11.2, hemoglobin 9.1 which appears at baseline, thrombocytosis with platelet count of 469, and creatinine of 2.05, sodium of 128. There was concern for fluid overload due to chest x-ray showing pulmonary edema. Patient was started on IV fluids for concern over her hypotension. She was admitted for further monitoring. Cardiology was consulted. There is concern for restrictive cardiomyopathy related to amyloidosis, cardiac echocardiogram demonstrated an ejection fraction of 65-70% with severe mitral regurgitation, and infiltrative disease. Her IV fluids were stopped and she was fluid overloaded. Her hyponatremia had improved and her sodium was 134. She was started on Lasix for treatment of her fluid overload. Hector and was increased from 5 mg twice daily to 5 mg 3 times daily which improved her blood pressure. Case was discussed between cardiology, oncology, and myself. There was concern that this patient would benefit from transfer to a tertiary care center more familiar with infiltrative cardiomyopathy, and more able to provide adequate treatment. Dr. Hernandez discussed case with Dr. Gillespie [facility], they felt that the patient would benefit from plasmapheresis. Cardiology was in agreement. Arrangements were made for transfer to [facility], Accepting physician Dr. Walters Of note patient was complaining of pain in right shoulder blade area, palpable mass noted. Had outpatient x-rays which were negative, ultrasound showed normal tissue and no mass Also had constipation, did not respond to dulcolax, given lactulose Patient seen and examined at bedside. Still with right should per pain, SOB, + nausea, + Constiption, Will for transfer. Vital signs reviewed and stable. General: non toxic, no distress, appears at stated age Derm: warm, dry Head: atraumatic, normocephalic, symmetric Eyes: EOMI, no lid lag, anicteric sclera Mouth: no lip lesion, mucus membranes moist Neuro:moving all 4 extremities independently, no focal neuro deficits Psych: Alert, oriented, appropriate affect A total of 45 minutes of time were spent preparing this complex discharge summary . Pertinent Studies: Soft tissue ultrasound-normal tissue, venous Doppler-no evidence of DVT Echocardiogram-ejection fraction 65-70%, moderate concentric LVH, severe mitral regurgitation Patient Condition at Discharge: Fair Plan - Discharge Summary New Discharge Prescriptions: No Action Aspirin [Adult Low Dose Aspirin EC] 81 mg PO DAILY Atorvastatin [Lipitor] 40 mg PO DAILY #30 tab Midodrine [ProAmatine] 5 mg PO AC-BID #60 tab Sulfamethox-Tmp 800-160Mg [Bactrim DS 800-160 mg] 1 tab PO MOWEFR Magnesium Oxide 400 mg PO DAILY Pantoprazole [Protonix] 40 mg PO HS PRN PRN Reason: Gi Upset Acyclovir 400 mg PO BID Dexamethasone 40 mg PO TH Ergocalciferol (Vitamin D2) [Vitamin D2] 50,000 unit PO WE Acetaminophen-Codeine 300-30mg [Tylenol #3] 1 tab PO HS PRN PRN Reason: Pain Discharge Medication List Aspirin [Adult Low Dose Aspirin EC] 81 mg PO DAILY 03/08/16 [History] Atorvastatin [Lipitor] 40 mg PO DAILY #30 tab 06/24/18 [Rx] Midodrine [ProAmatine] 5 mg PO AC-BID #60 tab 06/24/18 [Rx] Acyclovir 400 mg PO BID 07/07/18 [History] Dexamethasone 40 mg PO TH 07/07/18 [History] Ergocalciferol (Vitamin D2) [Vitamin D2] 50,000 unit PO WE 07/07/18 [History] Magnesium Oxide 400 mg PO DAILY 07/07/18 [History] Pantoprazole [Protonix] 40 mg PO HS PRN 07/07/18 [History] Sulfamethox-Tmp 800-160Mg [Bactrim DS 800-160 mg] 1 tab PO MOWEFR 07/07/18 [History] Acetaminophen-Codeine 300-30mg [Tylenol #3] 1 tab PO HS PRN 07/19/18 [History] Follow up Appointment(s)/Referral(s): Cj Carroll MD [Primary Care Provider] - 1-2 days
--- NOTE | 2018-07-21 12:42 | P.PN ---
Progress Note - Text Progress Note Date: 07/21/18 Dr. 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 Recommendation was for transfer to tertiary care facility with capabilities of managing this condition. Pt and are agreeable to transfer to [facility]. Dr. Hernandez spoke with Accepting Physician. Attending Physician is facilitating transfer. Dr. Hernandez will dictate complete detains of his discussion in a leter note.
--- NOTE | 2018-07-21 15:15 | P.PN ---
Subjective Progress Note Date: 07/21/18 This is a pleasant 58-year-old female with history of gastric lap band bariatric surgery, acute renal failure, acute tubular necrosis secondary to cast and is neuropathy and recent diagnosis of multiple myeloma/amyloidosis. Kidney biopsy showed amyloidosis, this was performed on 06/10/2018, patient is on chemotherapy and steroids, who has had frequent admissions to the hospital since her multiple myeloma diagnosis with symptoms of lightheadedness and hypotension. According to the patient, her blood pressure at home was as low as 60 systolic. She states that she has been trying to drink enough fluids, denies any chest discomfort. Has also noticed recently that her exertional breathing has been more short and usual. Chest x-ray was performed which revealed CHF exacerbation with new small bilateral pleural effusions. Bilateral venous duplex studies negative for DVT. EKG shows a normal sinus rhythm with nonspecific ST-T wave changes. Patient underwent a shoulder and scapula x-ray because of a soft tissue lump noted in the posterior scapula area, he did reveal some subcutaneous fat fairly well preserved with no specific lytic lesions noted. Echo performed in June of this year did reveal a pericardial effusion, appearance of myocardium consistent with infiltrative cardiomyopathy. EKG showed a normal sinus rhythm with nonspecific ST-T wave changes and low voltage QRS. I pressure on admission 86/40, heart rate in the 90s, afebrile. White blood cell count 8.3, hemoglobin 8.6, platelet count 535. Sodium on admission 128, 134 this morning, potassium 5.0, BUN 23 creatinine 2.0. Troponin 0.059. BNP level 18,600. Patient continues to be on steroids at this time, subcu heparin, IV fluids at 75 mL per hour, 07/21/2018 Patient was seen and examined today, she did overall feel better, mildly less edema today. Dr. 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 Recommendation was for transfer to tertiary care facility with capabilities of managing this condition. They are agreeable and arrangements are being made for the patient to transfer today to [facility]. Objective - Vital Signs Vital signs: Vital Signs Temp 97.9 F 07/21/18 12:00 Pulse 79 07/21/18 12:00 Resp 16 07/21/18 12:00 BP 108/57 07/21/18 12:00 Pulse Ox 95 07/21/18 12:00 Intake & Output 07/20/18 07/21/18 07/21/18 18:59 06:59 18:59 Intake Total 960 300 540 Output Total 2150 Balance 960 -1850 540 Weight 68.9 kg 77 kg Intake: Intake, IV Titration 240 160 Amount Sodium Chloride 0.9% 1, 240 160 000 ml @ 20 mls/hr IV . Q24H [facility] Rx#:[id number] Oral 720 140 540 Output: Urine 2150 Other: Voiding Method Toilet Toilet Toilet # Voids 2 1 3 - Exam PHYSICAL EXAMINATION: GENERAL: 58 year old female in no acute distress at the time of my examination HEENT: Head is atraumatic, normocephalic. Pupils equal, round. Sclera anicteric. Conjunctiva are clear. Mucous membranes of the mouth are moist. Neck is supple. There is no elevated jugular venous pressure. No carotid bruit is heard. HEART EXAMINATION: Heart S1, S2 normal. No murmur or gallop heard. CHEST EXAMINATION: Lungs are clear with diminished air entry to bilateral bases, soft tissue lump at the posterior right scapular area ABDOMEN: Soft, nontender. Bowel sounds are heard. No organomegaly noted. EXTREMITIES: 2+ peripheral pulses with 1+ evidence of peripheral edema and no calf tenderness noted. NEUROLOGIC patient is awake, alert and oriented 3 . - Labs CBC & Chem 7: 07/20/18 09:23 07/21/18 05:53 Labs: Abnormal Lab Results - Last 24 Hours (Table) 07/20/18 07/21/18 Range/Units 09:23 05:53 Sodium 133 L (137-145) mmol/L BUN 23 H (7-17) mg/dL Creatinine 2.03 H (0.52-1.04) mg/dL Iron 30 L (50-170) ug/dL Ferritin 894.2 H (10.0-291.0) ng/mL Assessment and Plan Plan: Assessment and plan #1 hypotension #2 acute on chronic kidney injury, acute tubular necrosis secondary to nephropathy and recent diagnosis of multiple myeloma/amyloidosis #3 abnormal troponin, likely secondary to hypotension and renal failure #4 congestive heart failure, diastolic acute on chronic. Most recent echo performed in June showed a normal left ventricular systolic function, ASD was noted,Moderate MR, elevated right atrial pressure, appearance of myocardium consistent with infiltrative cardiomyopathy, likely secondary to restrictive pattern secondary to amyloidosis moderate pericardial effusion is noted as well Plan Patient will be transferred today to [facility]. DNP note has been reviewed, I agree with a documented findings and plan of care. Patient was seen and examined.
[2018-07-21] MEDS ORDERED: NA PHOS,M-B/NA PHOS,DI-BA 133 ML ENEMA RECTAL ONE (17:13)
[2018-07-21] MEDS ORDERED: POLYETHYLENE GLYCOL 3350 17 GM POWD.PACK PO STA (18:37)
[2018-07-21] MEDS: SODIUM CHLORIDE 0.9% 1,000 ML IV SCH (19:00)
[2018-07-21 20:06] VITALS: BP 133/72; PULSE 86; RESP 18; TEMP 98
--- NOTE | 2018-07-22 00:55 | P.PN ---
Subjective Progress Note Date: 07/21/18 The patient reports moderate fatigue. She denied any shortness of breath at this time. She has had significant improvement in lower extremity swelling with Lasix. Blood pressure has been stable.No fever/chills/nausea/vomiting. Appetite is reasonable. She continues to complain of right shoulder pain and neck pain. Objective - Vital Signs Vital signs: Vital Signs Temp 98 F 07/21/18 20:06 Pulse 86 07/21/18 20:06 Resp 18 07/21/18 20:06 BP 133/72 07/21/18 20:06 Pulse Ox 96 07/21/18 20:06 Intake & Output 07/21/18 07/21/18 07/22/18 06:59 18:59 06:59 Intake Total 300 540 230 Output Total 2150 Balance -1850 540 230 Weight 77 kg Intake: Intake, IV Titration 160 20 Amount Sodium Chloride 0.9% 1, 160 20 000 ml @ 20 mls/hr IV . Q24H [facility] Rx#:[id number] Oral 140 540 210 Output: Urine 2150 Other: Voiding Method Toilet Toilet Toilet # Voids 1 3 - Constitutional General appearance: Present: no acute distress - EENT Eyes: Present: EOMI ENT: Present: hearing grossly normal, normal oropharynx - Respiratory Respiratory: bilateral: rales (minimal) - Cardiovascular Rhythm: regular Heart sounds: normal: S1, S2 - Gastrointestinal General gastrointestinal: Present: normal bowel sounds, soft - Integumentary Integumentary: Present: normal - Neurologic Neurologic: Present: CNII-XII intact - Musculoskeletal Musculoskeletal Comment(s): 1+ bilateral lower extremity edema, improved Musculoskeletal: Present: generalized weakness, strength equal bilaterally - Psychiatric Psychiatric: Present: A&O x's 3, appropriate affect - Labs CBC & Chem 7: 07/20/18 09:23 07/21/18 05:53 Labs: Abnormal Lab Results - Last 24 Hours (Table) 07/20/18 07/21/18 Range/Units 09:23 05:53 Sodium 133 L (137-145) mmol/L BUN 23 H (7-17) mg/dL Creatinine 2.03 H (0.52-1.04) mg/dL Iron 30 L (50-170) ug/dL Ferritin 894.2 H (10.0-291.0) ng/mL Assessment and Plan (1) CHF (congestive heart failure) Narrative/Plan: The patient had been having episodes of hypotension previously that are felt to be most likely related to adrenal insufficiency. The patient and her family were convinced that this was due to Velcade effect. During this admission the patient is now presenting with decompensation with pulmonary vascular congestion and edema. As noted, echocardiogram has shown evidence of infiltrative cardiomyopathy. 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 The situation was discussed with cardiology. Cardiology here indicated that they had no medical management solutions for her condition. The situation was discussed in detail with the patient and her , the latter being on the phone. Due to the restrictive cardiomyopathy, the patient is likely extremely sensitive to preload changes. Her CHF symptoms have responded to diuresis, but that runs the risk of causing recurrent hypotension. The mainstay of treatment is treating the underlying myeloma which will lead to light chain reduction. The patient is responding well to myeloma treatment in terms of serum light chain reduction. However she continues to have symptoms related to her cardiomyopathy which is actually interrupting her treatment. The case was discussed with hematology at [facility] regarding possible management options. It is felt that in this situation the patient may benefit from a short-term course of plasmapheresis, along with ongoing cytoreductive treatment for the myeloma. Case was discussed with nephrology who felt that this was a reasonable option to evaluate for this patient. As well as plasmapheresis is not available locally, transfer to [facility] was recommended. The patient was advised that it is not definite that she will need plasmapheresis but it would certainly be beneficial for her to be evaluated for the same, as well as to get additional cardiology opinion. She was agreeable to the same. Case was discussed with the admitting service, wh,o will initiate transfer process. Status: Acute Code(s): I50.9 - HEART FAILURE, UNSPECIFIED SNOMED Code(s): 27887946 (2) Multiple myeloma Narrative/Plan: Details of for diagnostic circumstances have been extensively noted in our previous consultation. The patient has been treated so far with pulse steroids, and then subsequently with Velcade and Decadron. In terms of light chain levels in the serum, she appears to have had a good response, with about a 30% reduction. The plan is to continue treatment with Revlimid that she recently obtained, along with protozoal inhibitors and steroids. As noted above, she may benefit from plasmapheresis to control her symptoms acutely better, so that she can stay on schedule with her treatment. Status: Acute Code(s): C90.00 - MULTIPLE MYELOMA NOT HAVING ACHIEVED REMISSION SNOMED Code(s): 028228043 (3) Acute kidney injury Narrative/Plan: this is due to light chain deposition Disease. The patient has improved with treatment of underlying myeloma. Some increase in creatinine was noted during this admission, likely due to hypotension. Nephrology is following in the case has been discussed with them. The patient was started on diuresis for her CHF. She is also on midodrine for blood pressure support. Creatinine is currently stable. Status: Acute Code(s): N17.9 - ACUTE KIDNEY FAILURE, UNSPECIFIED SNOMED Code(s): 04612683
[2018-07-26] MEDS ORDERED: ERGOCALCIFEROL 50,000 UNIT CAP PO SCH (09:00)
== END 2018-07-21 21:30 | disposition short-term general hospital (02) | DRG 545 ==
LOC: EC 13:34 → 3SCARD 18:11
PROVIDERS: ADMIT Family Medicine; ATTEND Family Medicine
DX: E85.4 Organ-limited amyloidosis (principal); N17.0 Acute kidney failure with tubular necrosis; I50.33 Acute on chronic diastolic (congestive) heart failure; E44.0 Moderate protein-calorie malnutrition; C90.00 Multiple myeloma not having achieved remission; I31.3 Pericardial effusion (noninflammatory); I43 Cardiomyopathy in diseases classified elsewhere; I13.0 Hypertensive heart and chronic kidney disease with heart failure and stage 1 through stage 4 chronic kidney disease, or unspecified chronic kidney disease; E87.1 Hypo-osmolality and hyponatremia; Q21.1 Atrial septal defect; E27.40 Unspecified adrenocortical insufficiency; G62.9 Polyneuropathy, unspecified; I34.0 Nonrheumatic mitral (valve) insufficiency; E86.0 Dehydration; E86.1 Hypovolemia; N18.9 Chronic kidney disease, unspecified; D64.9 Anemia, unspecified; I95.1 Orthostatic hypotension; K59.00 Constipation, unspecified; D47.3 Essential (hemorrhagic) thrombocythemia; E61.1 Iron deficiency; D72.829 Elevated white blood cell count, unspecified; M25.511 Pain in right shoulder; M54.2 Cervicalgia; R77.8 Other specified abnormalities of plasma proteins; Z79.82 Long term (current) use of aspirin; Z79.52 Long term (current) use of systemic steroids; Z79.899 Other long term (current) drug therapy; Z98.84 Bariatric surgery status; Z98.890 Other specified postprocedural states; Z98.42 Cataract extraction status, left eye; Z98.41 Cataract extraction status, right eye
CPT/HCPCS: 36415; 71046; 80048; 80053; 82533; 82550; 82553; 82728; 83540; 83550; 83735; 83880; 84484; 85025; 85027; 93005; 93308; 93970; 96360; 96361; 99285

== ENCOUNTER 2018-09-06 09:46 | Inpatient (IN) | payer BC, OTHER ==
--- NOTE | 2018-09-06 10:35 | ED ---
Syncope HPI <Alden Conley - Last Filed: 09/06/18 11:25> - General Source: EMS Mode of arrival: EMS Limitations: no limitations <Mary Delgado - Last Filed: 09/06/18 16:45> - General Chief Complaint: Syncope Stated Complaint: Syncope Time Seen by Provider: 09/06/18 10:03 - History of Present Illness Initial Comments: Patient is a 58-year-old female presenting to the emergency department via EMS after a near syncopal episode this morning. 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 Last chemo was on Tuesday. states patient was acting out of the ordinary last night, making comments of the did not make sense. Patient's blood pressure was low this morning so attempted to get her in the car to take her to the ER when she passed out in his arms. states it took patient about 5 minutes for the her to come to. Patient last had dialysis on Tuesday and patient states she felt great afterwards. Patient is complaining of feeling lightheaded, short of breath and pressure in her lower legs from edema. Patient has also had diarrhea for the last 2-3 days. Patient denies fever, chills, abdominal pain, chest pain. Upon arrival via EMS, patient's blood pressure was in the 80s. Patient is resting comfortably on the bed, appears very fatigued. is at bedside with her. (Mary Delgado) - Related Data Home Medications Medication Instructions Recorded Confirmed Aspirin [Adult Low Dose Aspirin EC] 81 mg PO DAILY 03/08/16 09/06/18 Acyclovir 400 mg PO DAILY 07/07/18 09/06/18 Magnesium Oxide 400 mg PO DAILY 07/07/18 09/06/18 Allopurinol [Zyloprim] 100 mg PO DAILY 08/04/18 09/06/18 Levothyroxine Sodium [Synthroid] 25 mcg PO DAILY 08/04/18 09/06/18 Acetaminophen with Codeine 1 tab PO Q4H PRN 09/06/18 09/06/18 [Tylenol with Codeine #4 Tablet] Artificial Tears-Hypromellose 1 drops BOTH EYES TID PRN 09/06/18 09/06/18 [Artificial Tear Drops] Loperamide [Imodium] 2 mg PO Q4H PRN 09/06/18 09/06/18 Meclizine [Antivert] 12.5 mg PO TID PRN 09/06/18 09/06/18 Midodrine HCl [ProAmatine] 10 mg PO TID 09/06/18 09/06/18 Pantoprazole Sodium [Protonix] 40 mg PO DAILY 09/06/18 09/06/18 Polyethylene Glycol 3350 [Miralax] 17 gm PO DAILY PRN 09/06/18 09/06/18 Prochlorperazine [Compazine] 10 mg PO AC-TID 09/06/18 09/06/18 Sennosides [Senna] 17.2 mg PO HS 09/06/18 09/06/18 Sevelamer [Renvela] 800 mg PO TID-W/MEALS 09/06/18 09/06/18 Allergies Allergy/AdvReac Type Severity Reaction Status Date / Time No Known Allergies Allergy Verified 09/06/18 10:27 Review of Systems ROS Other: All systems not noted in ROS Statement are negative. <Alden Conley - Last Filed: 09/06/18 11:25> ROS Other: All systems not noted in ROS Statement are negative. <Mary Delgado - Last Filed: 09/06/18 16:45> ROS Statement: Those systems with pertinent positive or pertinent negative responses have been documented in the HPI. Past Medical History Past Medical History: Cancer, Hyperlipidemia, Thyroid Disorder Additional Past Medical History / Comment(s): Pt recently admitted to [facility] on 07/18/18 with restrictive cardiomyopathy/EF 65-79%/severe mitral regurg with concern for possible amyloidosis, hypotention, R scapular mass, chronic elevated troponin, thrombocytosis, moderate protein calorie malnutrition,acute kidney injury/renal bx revealed renal amyloid, CKD stage IV. Pt was transferred to [facility] on 07/21/18 and diagnosed with light chain amyloidosis/light chain proximal tubulopathy/cardiorenal syndrome/CHF, hyponatremia. Pt had temporary dialysis. Other hx: Pt recently diagnosed with multiple myeloma in April, and had had 3 rounds of chemo, blood clot in Left eye (origin unknown)...blood work/dx tests such as carotid u/s performed to determine etiology but remains unknown, normocytic anemia, hypotension, hypothyroid, varicosities. History of Any Multi-Drug Resistant Organisms: None Reported Past Surgical History: Bariatric Surgery, Orthopedic Surgery, Tonsillectomy Additional Past Surgical History / Comment(s): 05/2018 bone marrow bx and renal bx, 06/2018 r sided dialysis port, right knee meniscus repair (Feb 2016), Bariatric Lap band May 2009, bilateral cataract surgery (November 2013), laser L eye surgery for retinal occlusion, lin carpal tunnel, colonoscopy, bilateral breast reduction. Past Anesthesia/Blood Transfusion Reactions: No Reported Reaction Additional Past Anesthesia/Blood Transfusion Reaction / Comment(s): No hx of blood transfusion Past Psychological History: No Psychological Hx Reported, Depression Smoking Status: Never smoker - Past Family History Father History Unknown: Yes Family Medical History: Unable to Obtain Additional Family Medical History / Comment(s): does not know who her biologic father is Mother Family Medical History: No Reported History Additional Family Medical History / Comment(s): Mother may have had some mental issues. <Mary Delgado - Last Filed: 09/06/18 16:45> General Exam Limitations: no limitations <Mary Delgado - Last Filed: 09/06/18 16:45> - General Exam Comments Initial Comments: GENERAL: Patient appears fatigued, in no acute distress. HEAD: Atraumatic, normocephalic. EYES: Pupils equal round and reactive to light, extraocular movements intact, sclera anicteric, conjunctiva are normal. ENT: TMs normal, nares patent, oropharynx clear without exudates. Moist mucous membranes. NECK: Normal range of motion, supple without lymphadenopathy or JVD. LUNGS: Breath sounds clear to auscultation bilaterally and equal. No wheezes rales or rhonchi. HEART: Regular rate and rhythm without murmurs, rubs or gallops. ABDOMEN: Soft, nontender, normoactive bowel sounds. No guarding, no rebound. No masses appreciated, except for gastric band felt the epigastric area. : Deferred EXTREMITIES: Normal range of motion. No clubbing or cyanosis. Patient has 2+ pitting edema of her lower legs and ankles. NEUROLOGICAL: Cranial nerves II through XII grossly intact. Normal speech, normal gait. PSYCH: Normal mood, normal affect. SKIN: Warm, Dry, normal turgor. Patient has dialysis port on the anterior right shoulder. No signs of infection. (Mary Delgado) Course Vital Signs 09/06/18 09/06/18 09/06/18 09:48 09:59 10:00 Temperature 98.8 F Pulse Rate 71 71 71 Respiratory 16 20 22 Rate Blood Pressure 81/43 O2 Sat by Pulse 97 97 96 Oximetry 09/06/18 09/06/18 09/06/18 10:30 11:00 11:30 Temperature Pulse Rate 70 62 67 Respiratory 20 Rate Blood Pressure 72/40 70/36 73/38 O2 Sat by Pulse 97 97 96 Oximetry 09/06/18 09/06/18 09/06/18 12:00 12:30 13:00 Temperature Pulse Rate 65 64 65 Respiratory Rate Blood Pressure 72/38 67/37 65/32 O2 Sat by Pulse 97 94 L 95 Oximetry 09/06/18 09/06/18 09/06/18 13:24 13:56 14:54 Temperature 98.6 F Pulse Rate 64 90 90 Respiratory 16 16 18 Rate Blood Pressure 68/37 82/50 85/49 O2 Sat by Pulse 94 L 96 96 Oximetry 09/06/18 16:12 Temperature Pulse Rate 93 Respiratory 18 Rate Blood Pressure 90/54 O2 Sat by Pulse 96 Oximetry EKG Findings - EKG Comments: EKG Findings:: Ventricular rate 73, OK interval 166, QTc 522. Normal sinus rhythm, prolonged QT. No acute ST segment elevations. <Mary Delgado - Last Filed: 09/06/18 16:45> Medical Decision Making - Lab Data Result diagrams: 09/06/18 10:40 09/06/18 10:40 <Adlen Conley - Last Filed: 09/06/18 11:25> - Lab Data Result diagrams: 09/06/18 10:40 09/06/18 10:40 <Mary Delgado - Last Filed: 09/06/18 16:45> - Medical Decision Making I, Bandar Conley, personally saw and examined the patient. I have reviewed and agree with the PA findings, including all diagnostic interpretations and treatment plans as written unless otherwise stated. I was present for the red portions of any procedures performed and the inclusive time noted for any critical care statement. (Alden Conley) Patient is a 58-year-old female who presents via EMS for a syncopal episode. Patient's states patient passed out his arms. Patient has history of multiple melanoma and amyloidosis. Patient's last chemo was on Tuesday. Patient did receive dialysis on Tuesday. Patient was recently at [facility] for approximately 2 weeks and was discharged 4 days ago. Patient has been hypotensive for the last month. Patient denies fever, chills, abdominal pain, chest pain. Patient does admit to a 2-3 days of diarrhea. Blood pressure on arrival was 72/38. On exam patient has bilateral lower leg 2+ pitting edema, otherwise normal exam. Hemoglobin 7.4 is a little lower than her normal, white count is 5.5, sodium is 131, potassium 4.1. BUN/creatinine this 51/2.71, slightly improved. Lactic acid is 2.0, BNP is 150,000. Chest x-ray shows right basilar infiltrate that is persistent. Could represent pneumonia. Patient's blood pressure continued to drop to 65/32, patient was given 2 L of fluid as well as Zosyn and vancomycin. Patient was also given midodrine. BP improved to 82/50. UA and C. diff are still pending at this time. Patient will be admitted for hypotension. Case discussed with Dr. Conley. Patient accepted by Dr. Melissa. (Mary Delgado) - Lab Data Lab Results 09/06/18 09/06/18 09/06/18 Range/Units 10:40 10:40 10:40 WBC 5.5 (3.8-10.6) k/uL RBC 2.58 L (3.80-5.40) m/uL Hgb 7.4 L (11.4-16.0) gm/dL Hct 23.1 L (34.0-46.0) % MCV 89.4 (80.0-100.0) fL MCH 28.8 (25.0-35.0) pg MCHC 32.3 (31.0-37.0) g/dL RDW 18.3 H (11.5-15.5) % Plt Count 131 L (150-450) k/uL Neutrophils % 92 % Lymphocytes % 4 % Monocytes % 3 % Eosinophils % 0 % Basophils % 0 % Neutrophils # 5.0 (1.3-7.7) k/uL Lymphocytes # 0.2 L (1.0-4.8) k/uL Monocytes # 0.1 (0-1.0) k/uL Eosinophils # 0.0 (0-0.7) k/uL Basophils # 0.0 (0-0.2) k/uL Manual Slide Review Performed Poikilocytosis (manual Present Anisocytosis Slight PT (9.0-12.0) sec INR (<1.2) APTT (22.0-30.0) sec Sodium 131 L (137-145) mmol/L Potassium 4.1 (3.5-5.1) mmol/L Chloride 96 L (98-107) mmol/L Carbon Dioxide 25 (22-30) mmol/L Anion Gap 10 mmol/L BUN 51 H (7-17) mg/dL Creatinine 2.71 H (0.52-1.04) mg/dL Est GFR (CKD-EPI)AfAm 22 (>60 ml/min/1.73 sqM) Est GFR (CKD-EPI)NonAf 19 (>60 ml/min/1.73 sqM) Glucose 111 H (74-99) mg/dL Plasma Lactic Acid Ric 2.0 (0.7-2.0) mmol/L Calcium 8.1 L (8.4-10.2) mg/dL Total Bilirubin 1.9 H (0.2-1.3) mg/dL AST 31 (14-36) U/L ALT 37 (9-52) U/L Alkaline Phosphatase 469 H (38-126) U/L NT-Pro-B Natriuret Pep pg/mL Total Protein 4.6 L (6.3-8.2) g/dL Albumin 2.8 L (3.5-5.0) g/dL 09/06/18 09/06/18 Range/Units 10:40 10:40 WBC (3.8-10.6) k/uL RBC (3.80-5.40) m/uL Hgb (11.4-16.0) gm/dL Hct (34.0-46.0) % MCV (80.0-100.0) fL MCH (25.0-35.0) pg MCHC (31.0-37.0) g/dL RDW (11.5-15.5) % Plt Count (150-450) k/uL Neutrophils % % Lymphocytes % % Monocytes % % Eosinophils % % Basophils % % Neutrophils # (1.3-7.7) k/uL Lymphocytes # (1.0-4.8) k/uL Monocytes # (0-1.0) k/uL Eosinophils # (0-0.7) k/uL Basophils # (0-0.2) k/uL Manual Slide Review Poikilocytosis (manual Anisocytosis PT 12.4 H (9.0-12.0) sec INR 1.2 H (<1.2) APTT 35.7 H (22.0-30.0) sec Sodium (137-145) mmol/L Potassium (3.5-5.1) mmol/L Chloride (98-107) mmol/L Carbon Dioxide (22-30) mmol/L Anion Gap mmol/L BUN (7-17) mg/dL Creatinine (0.52-1.04) mg/dL Est GFR (CKD-EPI)AfAm (>60 ml/min/1.73 sqM) Est GFR (CKD-EPI)NonAf (>60 ml/min/1.73 sqM) Glucose (74-99) mg/dL Plasma Lactic Acid Ric (0.7-2.0) mmol/L Calcium (8.4-10.2) mg/dL Total Bilirubin (0.2-1.3) mg/dL AST (14-36) U/L ALT (9-52) U/L Alkaline Phosphatase (38-126) U/L NT-Pro-B Natriuret Pep [id number] pg/mL Total Protein (6.3-8.2) g/dL Albumin (3.5-5.0) g/dL Disposition <Alden Conley - Last Filed: 09/06/18 11:25> Is patient prescribed a controlled substance at d/c from ED?: No Decision Date: 09/06/18 Decision Time: 14:00 <Mary Delgado - Last Filed: 09/06/18 16:45> Clinical Impression: Hypotension, Multiple myeloma, Renal failure Disposition: ADMITTED IP TO THIS HOSP Condition: Stable
[2018-09-06 11:00] LABS: Anisocytosis Slight; Basophils % (A) 0 %; Eosinophils % (A) 0 %; HCT 23.1 % (34.0-46.0); HGB 7.4 gm/dL (11.4-16.0); Lymphocytes # (A) 0.2 k/uL (1.0-4.8); Lymphocytes % (A) 4 %; MCH 28.8 pg (25.0-35.0); MCHC 32.3 g/dL (31.0-37.0); MCV 89.4 fL (80.0-100.0); Mean Platelet Volume 9.9; Monocytes # (A) 0.1 k/uL (0-1.0); Monocytes % (A) 3 %; Neutrophils % (A) 92 %; Platelet Count 131 k/uL (150-450); RBC 2.58 m/uL (3.80-5.40); RDW 18.3 % (11.5-15.5); WBC 5.5 k/uL (3.8-10.6)
[2018-09-06 11:11] LABS: Albumin 2.8 g/dL (3.5-5.0); Calcium 8.1 mg/dL (8.4-10.2); Potassium 4.1 mmol/L (3.5-5.1); Total Bilirubin 1.9 mg/dL (0.2-1.3); Total Protein 4.6 g/dL (6.3-8.2)
[2018-09-06 11:12] LABS: INR 1.2 (<1.2); Partial Thromboplastin Time 35.7 sec (22.0-30.0); Prothrombin Time 12.4 sec (9.0-12.0)
--- NOTE | 2018-09-06 11:14 | XR ---
EXAMINATION TYPE: XR chest 2V DATE OF EXAM: 09/06/2018 COMPARISON: 08/07/2018 HISTORY: Shortness of breath TECHNIQUE: Frontal and lateral views of the chest are obtained. FINDINGS: Scattered senescent parenchymal changes noted. Hyperinflation compatible with COPD. Right basilar infiltrate persists. Correlate for pneumonia or atelectasis. Heart size is stable. Pulmonary venous congestion without overt failure. Large for central venous dany e is noted to be in place with distal tip overlying the right atrium. Mediastinal structures are stable and grossly unremarkable. No evidence for hilar prominence. Degenerative changes dorsal spine. IMPRESSION: 1. Right basilar infiltrate persists. Correlate for pneumonia or atelectasis.
[2018-09-06 11:17] LABS: Poikilocytosis (M) Present
[2018-09-06] MEDS ORDERED: SODIUM CHLORIDE 0.9% 1,000 ML IV STA (11:20)
[2018-09-06] MEDS ORDERED: HYDROCORTISONE SUCCINATE 100 MG/2 ML VIAL IV STA (11:23)
[2018-09-06] MEDS ORDERED: PIPERACILLIN-TAZOBACTAM 3.375 GM in SODIUM CHLORIDE 0.9% 100 ML IVPB STA (11:23)
[2018-09-06] MEDS ORDERED: MIDODRINE 5 MG TAB PO STA (13:25)
[2018-09-06] MEDS ORDERED: ONDANSETRON 4 MG/2 ML VIAL IVP PRN (14:22)
[2018-09-06] MEDS ORDERED: NALOXONE 0.4 MG/ML 1 ML VIAL IV PRN ×2 (14:22→17:18)
[2018-09-06] MEDS ORDERED: ACETAMINOPHEN TAB 325 MG TAB PO PRN (14:22)
[2018-09-06] MEDS ORDERED: MIDODRINE 5 MG TAB PO ONE (17:00)
[2018-09-06] MEDS ORDERED: HYDROcodone/APAP 5-325MG 1 EACH TAB PO PRN (17:18)
[2018-09-06] MEDS ORDERED: ARTIFICIAL TEARS-HYPROMELLOSE DROPS 15 ML BTL BOTH EYES PRN (17:26)
--- NOTE | 2018-09-06 17:30 | P.CNPUL ---
History of Present Illness Consult date: 09/06/18 Chief complaint: Hypotension History of present illness: 58-year-old female patient with known history of multiple myeloma and amyloidosis and End stage renal disease is currently on hemodialysis. The patient also has infiltrative cardiomyopathy with diastolic dysfunction and a preserved LV function. The patient is on hemodialysis for the time being 3 times a week and has last hemodialysis session was 2 days ago. The patient came into the emergency department after being discharged from [facility] approximately 5 days ago. The patient wasn't [facility] meeting with complications of myeloma and renal failure between 08/09/2018 and 09/02/2018. During this time the patient was started on systemic chemotherapy with a combination of cyclop hosphamide, Velcade and Decadron. She opted to continue her treatment locally with Dr. Hernandez. Patient came into the ED because of generalized weakness and hypotension and near syncope. As mentioned her last chemo was 5 days ago. She was getting progressively more weak. Acting out of ordinary last night and somewhat confused. She was having lightheadedness and some degree of shortness of breath and in his edema all over especially in lower extremities. The patient was also having diarrhea over the past 2-3 days. No chest pain. Initial systolic blood pressure was in the low 80s. Upon arrival to the emergency department the patient was afebrile. The systolic blood pressure was recorded to be as low as 70 with diastolic of 36. The patient was given a total of 2 L of IV fluid. The patient following that improved. Nevertheless, based on the extensive surgery. Volume overload, total decided not to give her any further fluids. Nephrology was involved in the case and the patient will be started on hemodialysis. Meanwhile, it was advised for this patient to moved to the ICU for any pressor treatment if needed should he develop any hypotension. Patient's white cell count is at 5.5. The patient seemed was at 7.4. Renal function shows a BUN of 51 with a creatinine of 2.7. The troponin was not measures. Lactic acid level is at 2.0. ProBNP level is 150,000. The chest x-ray shows chronic right basilar infiltration/atelectasis. Note that this patient typically runs a low blood pressure. She is on midodrine outpatient basis 10 mg by mouth 3 times a day. Review of Systems CONSTITUTIONAL: Denies fever. Denies chills. The patient is chronically fatigued and she denies any fever for now. EYES: Denies blurred vision. Denies vision changes. Denies eye pain. EARS, NOSE, MOUTH & THROAT: Denies headache. Denies sore throat. Denies ear pain . CARDIOVASCULAR: Denies chest pain. Denies shortness of breath. Denies orthopnea. Denies PND. Denies palpitations. RESPIRATORY: Denies cough. GASTROINTESTINAL: Denies abdominal pain. She is complaining of a crease diarrhea. Denies constipation. Denies nausea. Denies vomiting. MUSCULOSKELETAL: Denies myalgias. INTEGUMENTARY: Denies pruitis. Denies rash. NEUROLOGIC: There is generalized weakness and presyncope probably related to underlying comorbidities including hypertension. PSYCHIATRIC: He has increased depression and anxiety. ENDOCRINE: Complains of fatigue. Denies weight change. Denies polydipsia. Denies polyurina. GENITOURINARY: Denies burning, hematuria or urgency with micturation. The patient is currently on hemodialysis via permacath in the anterior chest area. HEMATOLOGIC: Adenoma details discussed above Past Medical History Past Medical History: Cancer, Hyperlipidemia, Thyroid Disorder Additional Past Medical History / Comment(s): Pt recently admitted to [facility] on 07/18/18 with restrictive cardiomyopathy/EF 65-79%/severe mitral regurg with concern for possible amyloidosis, hypotention, R scapular mass, chronic elevated troponin, thrombocytosis, moderate protein calorie malnutrition,acute kidney injury/renal bx revealed renal amyloid, CKD stage IV. Pt was transferred to [facility] on 07/21/18 and diagnosed with light chain amyloidosis/light chain proximal tubulopathy/cardiorenal syndrome/CHF, hyponatremia. Pt had temporary dialysis. Other hx: Pt recently diagnosed with multiple myeloma in April, and had had 3 rounds of chemo, blood clot in Left eye (origin unknown)...blood work/dx tests such as carotid u/s performed to determine etiology but remains unknown, normocytic anemia, hypotension, hypothyroid, varicosities. History of Any Multi-Drug Resistant Organisms: None Reported Past Surgical History: Bariatric Surgery, Orthopedic Surgery, Tonsillectomy Additional Past Surgical History / Comment(s): 05/2018 bone marrow bx and renal bx, 06/2018 r sided dialysis port, right knee meniscus repair (Feb 2016), Bariatric Lap band May 2009, bilateral cataract surgery (November 2013), laser L eye surgery for retinal occlusion, lin carpal tunnel, colonoscopy, bilateral breast reduction. Past Anesthesia/Blood Transfusion Reactions: No Reported Reaction Additional Past Anesthesia/Blood Transfusion Reaction / Comment(s): No hx of blood transfusion Past Psychological History: No Psychological Hx Reported, Depression Smoking Status: Never smoker - Past Family History Father History Unknown: Yes Family Medical History: Unable to Obtain Additional Family Medical History / Comment(s): does not know who her biologic f ather is Mother Family Medical History: No Reported History Additional Family Medical History / Comment(s): Mother may have had some mental issues. Medications and Allergies Home Medications Medication Instructions Recorded Confirmed Type Aspirin [Adult Low Dose Aspirin EC] 81 mg PO DAILY 03/08/16 09/06/18 History Acyclovir 400 mg PO DAILY 07/07/18 09/06/18 History Magnesium Oxide 400 mg PO DAILY 07/07/18 09/06/18 History Allopurinol [Zyloprim] 100 mg PO DAILY 08/04/18 09/06/18 History Levothyroxine Sodium [Synthroid] 25 mcg PO DAILY 08/04/18 09/06/18 History Acetaminophen with Codeine 1 tab PO Q4H PRN 09/06/18 09/06/18 History [Tylenol with Codeine #4 Tablet] Artificial Tears-Hypromellose 1 drops BOTH EYES TID PRN 09/06/18 09/06/18 History [Artificial Tear Drops] Loperamide [Imodium] 2 mg PO Q4H PRN 09/06/18 09/06/18 History Meclizine [Antivert] 12.5 mg PO TID PRN 09/06/18 09/06/18 History Midodrine HCl [ProAmatine] 10 mg PO TID 09/06/18 09/06/18 History Pantoprazole Sodium [Protonix] 40 mg PO DAILY 09/06/18 09/06/18 History Polyethylene Glycol 3350 [Miralax] 17 gm PO DAILY PRN 09/06/18 09/06/18 History Prochlorperazine [Compazine] 10 mg PO AC-TID 09/06/18 09/06/18 History Sennosides [Senna] 17.2 mg PO HS 09/06/18 09/06/18 History Sevelamer [Renvela] 800 mg PO TID-W/MEALS 09/06/18 09/06/18 History Allergies Allergy/AdvReac Type Severity Reaction Status Date / Time No Known Allergies Allergy Verified 09/06/18 10:27 Physical Exam Vitals: Vital Signs Temp Pulse Resp BP Pulse Ox 09/06/18 16:12 93 18 90/54 96 09/06/18 14:54 98.6 F 90 18 85/49 96 09/06/18 13:56 90 16 82/50 96 09/06/18 13:24 64 16 68/37 94 L 09/06/18 13:00 65 65/32 95 09/06/18 12:30 64 67/37 94 L 09/06/18 12:00 65 72/38 97 09/06/18 11:30 67 73/38 96 09/06/18 11:00 62 70/36 97 09/06/18 10:30 70 20 72/40 97 09/06/18 10:00 71 22 96 09/06/18 09:59 71 20 97 09/06/18 09:48 98.8 F 71 16 81/43 97 Intake and Output 09/06/18 09/06/18 09/06/18 06:59 14:59 22:59 Other: Weight 81.647 kg General: Chronically ill-appearing, no distress, appears at stated age Derm: warm, dry Head exam was generally normal. There was no scleral icterus or corneal arcus. Mucous membranes were moist. Neck was supple and without jugular venous distension, thyromegaly, or carotid bruits. Carotids were easily palpable bilaterally. There was no adenopathy. Eyes: EOMI, no lid lag, anicteric sclera Mouth: no lip lesion, mucus membranes moist Cardiovascular: S1S2 reg, no murmur, positive posterior tibial pulse bilateral, Lungs: rhonchi bilateral bases, no rhonchi, no rales , no accessory muscle use Abdominal: soft, nontender to palpation, no guarding, no appreciable organomegaly Ext: no gross muscle atrophy,3+ edema bilateral lower extremities, no contractures Neuro: CN II-XI grossly intact, no focal neuro deficits Psych: Alert, oriented, upset and the patient feels increasingly depressed and anxious Examination of the skin revealed no evidence of significant rashes, suspicious appearing nevi or other concerning lesions. The patient has multiple areas of ecchymosis on her skin related to previous episodes especially over the anterior abdominal wall. Results - Laboratory Findings CBC and BMP: 09/06/18 10:40 09/06/18 10:40 PT/INR, D-dimer PT 12.4 sec (9.0-12.0) H 09/06/18 10:40 INR 1.2 (<1.2) H 09/06/18 10:40 Abnormal lab findings: Abnormal Labs 09/06/18 09/06/18 09/06/18 10:40 10:40 10:40 RBC 2.58 L Hgb 7.4 L Hct 23.1 L RDW 18.3 H Plt Count 131 L Lymphocytes # 0.2 L PT 12.4 H INR 1.2 H APTT 35.7 H Sodium 131 L Chloride 96 L BUN 51 H Creatinine 2.71 H Glucose 111 H Calcium 8.1 L Total Bilirubin 1.9 H Alkaline Phosphatase 469 H Total Protein 4.6 L Albumin 2.8 L - Diagnostic Findings Chest x-ray: image reviewed Assessment and Plan Plan: 1 hypotension , currently under investigation. Noted the patient is chronically hypotensive maintained on midodrine on outpatient basis. Nevertheless, there has been further drop in the blood pressure and this needs to be further investigated. The patient has infiltrative cardiomyopathy/diastolic dysfunction. The patient was having diarrhea and she has received systemic chemotherapy regarding her multiple myeloma. Underlying sepsis cannot be completely excluded this point in time. We'll continue to follow. The patient received a total of 2 L of IV fluids in the emergency department. Currently patient is on no pressors 2 multiple myeloma started on systemic treatment with a combination of Cytoxan and Decadron and Velcade. The patient has light chain disease 3 myeloma kidney. The patient is currently dialysis dependent and her renal failure is End stage requiring dialysis. Her last dialysis was around 2 days ago and the patient is going to undergo another session of dialysis today. 4 diastolic heart failure/infiltrative cardiomyopathy probably due to myeloma/amyloidosis disease 5 moderate pericardial effusion 6 diarrhea, rule out C. diff colitis 7 massive anasarca and volume overload with extensive lower extremity edema 8 chronic hypertension 9 chronic anxiety/depression 10 chronic anemia 11 hypothyroidism currently on Synthroid 12 hyperlipidemia and Plan Monitor this patient's blood pressure pH acid the patient intensive care unit. The patient will need hemodialysis and likely pressors if the patient develops any further hypotension. Obtain urine cultures. Obtain blood cultures. Oral vancomycin for suspected C. diff colitis and stool for C. diff will be sent. Continue midodrine. Stress dose hydrocortisone. Check TSH level. Resume thyroid hormone replacements. Nephrology evaluation. Oncology evaluation. We'll continue to follow. The patient will be transferred to the ICU.
--- NOTE | 2018-09-06 18:18 | P.HPIM ---
History of Present Illness H&P Date: 09/06/18 Chief Complaint: syncope Patient is a 58-year-old female well-known to our service from multiple hospital admissions with a history of multiple myeloma currently on c hemotherapy with cyclophosphamide, Velcade, dexamethasone every Tuesday, hemodialysis which started one week prior to admission and her last dialysis session was 2 days prior to admission, anemia, and infiltrative cardiomyopathy who presented to the ER with 2 presyncopal episodes. When EMS arrived to the home her blood pressure was low. On arrival to the ER was in the 60s and she received 2 L of IV fluids. Dr. Munguia was contacted who recommended treatment with Solu-Cortef half and Midrin. He recommended no more than 2 L of IV fluids and initiation of pressors should she remain hypotensive. Dr. Hernandez was contacted. Initial laboratory analysis was consistent with her known anemia, thrombocytopenia, and chronic kidney disease. She is known to have a slightly elevated bilirubin at 1.9. AST and ALT within normal limits. BNP was elevated at 150,000. Chest x-ray showed right basilar persistent infiltrate. Patient had recently been hospitalized that,from 08/09 through 09/02 for multiple myeloma related kidney dysfunction and infiltrative cardiomyopathy. She was initiated on systemic chemotherapy as mentioned above and dialysis. She did not plasma pheresis during the hospital stay. She was also diagnosed with C. diff infection and reported completion of 10 days of oral vancomycin therapy. Arrangements were made for admission to ICU with planned vasopressors and HD. She was started on Vanco oral while C diff testing pending. Patient seen and examined in the ER with present. She reports that she has been feeling well since discharge from the hospital. This morning she woke up and felt dizzy. She did fall and lose control of her bowel. At that point in time she did not pass out. She then felt lightheaded and again had low blood pressure. attempted to get her to the car and she became disorientated and slow to respond. She did not lose consciousness. He then called EMS and presented to the emergency department. She's been having diarrhea since Tuesday has been worsening. She was taking some Imodium at the advice of her home health care nurse. She denies any chest pain or palpitations. She has had chronic edema which she states is stable for her, she has noticed some weakening of her lower extremities. Today she did have increased shortness of breath. She has had chronic nausea which is at baseline after starting her chemo. She d oes not urinate much but denies any dysuria. Mood is somewhat better. She plans on following up with Dr. Hernandez for continued chemotherapy. Review of Systems Pertinent positives and negatives as discussed in HPI, a complete review of systems was performed and all other systems are negative. 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 Pt was transferred to [facility] on 07/21/18 and diagnosed with light chain amyloidosis/light chain proximal tubulopathy/cardiorenal syndrome/CHF, hyponatremia. Pt had temporary dialysis. Other hx: Diagnosed with multiple myeloma in April, blood clot in Left eye (origin unknown)...blood work/dx tests such as carotid u/s performed to determine etiology but remains unknown, normocytic anemia, hypotension, hypothyroid, varicosities. History of Any Multi-Drug Resistant Organisms: None Reported Past Surgical History: Bariatric Surgery, Orthopedic Surgery, Tonsillectomy Additional Past Surgical History / Comment(s): 05/2018 bone marrow bx and renal bx, 06/2018 r sided dialysis port X 2, right knee meniscus repair (Feb 2016), Bariatric Lap band May 2009, bilateral cataract surgery (November 2013), laser L eye surgery for retinal occlusion, lin carpal tunnel, colonoscopy, bilateral breast reduction. Past Anesthesia/Blood Transfusion Reactions: No Reported Reaction Additional Past Anesthesia/Blood Transfusion Reaction / Comment(s): No hx of blood transfusion Past Psychological History: No Psychological Hx Reported, Depression Smoking Status: Never smoker Additional History: Lives at home with her , independent in ADLs, has home health care - Past Family History Father History Unknown: Yes Family Medical History: Unable to Obtain Additional Family Medical History / Comment(s): does not know who her biologic father is Mother Family Medical History: No Reported History Additional Family Medical History / Comment(s): Mother may have had some mental issues. Medications and Allergies Home Medications Medication Instructions Recorded Confirmed Type Aspirin [Adult Low Dose Aspirin EC] 81 mg PO DAILY 03/08/16 09/06/18 History Acyclovir 400 mg PO DAILY 07/07/18 09/06/18 History Magnesium Oxide 400 mg PO DAILY 07/07/18 09/06/18 History Allopurinol [Zyloprim] 100 mg PO DAILY 08/04/18 09/06/18 History Levothyroxine Sodium [Synthroid] 25 mcg PO DAILY 08/04/18 09/06/18 History Acetaminophen with Codeine 1 tab PO Q4H PRN 09/06/18 09/06/18 History [Tylenol with Codeine #4 Tablet] Artificial Tears-Hypromellose 1 drops BOTH EYES TID PRN 09/06/18 09/06/18 History [Artificial Tear Drops] Loperamide [Imodium] 2 mg PO Q4H PRN 09/06/18 09/06/18 History Meclizine [Antivert] 12.5 mg PO TID PRN 09/06/18 09/06/18 History Midodrine HCl [ProAmatine] 10 mg PO TID 09/06/18 09/06/18 History Pantoprazole Sodium [Protonix] 40 mg PO DAILY 09/06/18 09/06/18 History Polyethylene Glycol 3350 [Miralax] 17 gm PO DAILY PRN 09/06/18 09/06/18 History Prochlorperazine [Compazine] 10 mg PO AC-TID 09/06/18 09/06/18 History Sennosides [Senna] 17.2 mg PO HS 09/06/18 09/06/18 History Sevelamer [Renvela] 800 mg PO TID-W/MEALS 09/06/18 09/06/18 History Allergies Allergy/AdvReac Type Severity Reaction Status Date / Time No Known Allergies Allergy Verified 09/06/18 10:27 Physical Exam Osteopathic Statement: *. No significant issues noted on an osteopathic structural exam other than those noted in the History and Physical/Consult. Vitals: Vital Signs Temp Pulse Resp BP Pulse Ox 09/06/18 16:12 93 18 90/54 96 09/06/18 14:54 98.6 F 90 18 85/49 96 09/06/18 13:56 90 16 82/50 96 09/06/18 13:24 64 16 68/37 94 L 09/06/18 13:00 65 65/32 95 09/06/18 12:30 64 67/37 94 L 09/06/18 12:00 65 72/38 97 09/06/18 11:30 67 73/38 96 09/06/18 11:00 62 70/36 97 09/06/18 10:30 70 20 72/40 97 09/06/18 10:00 71 22 96 09/06/18 09:59 71 20 97 09/06/18 09:48 98.8 F 71 16 81/43 97 Intake and Output 09/06/18 09/06/18 09/06/18 06:59 14:59 22:59 Other: Weight 81.647 kg General: Ill appearing, mild distress, appears at stated age, normal weight Derm: Multiple areas of ecchymoses over arms and abdominal area, weeping bilateral lower extremities, abdominal striae, warm, dry Head: atraumatic, normocephalic, symmetric Eyes: EOMI, no lid lag, anicteric sclera, pupils equal round reactive to light ENT: Nose and ears atraumatic, no thrush, no pharyngeal erythema Neck: No thyromegaly, no cervical lymphadenopathy, trachea midline, supple Mouth: no lip lesion, mucus membranes dry Cardiovascular: S1S2 reg, no murmur, positive posterior tibial pulse bilateral, diffuse anasarca, capillary refill less than 2 seconds Lungs: crackles bilateral, no rhonchi, no rales , no accessory muscle use Abdominal: soft, nontender to palpation, no guarding, no appreciable organo megaly, normal bowel sounds Ext: no gross muscle atrophy, muscle strength 5 out of 5 in all 4 extremities grossly, no contractures, Neuro: CN II-XI grossly intact, light touch intact all 4 extremities, finger to nose within normal limits, Psych: Alert, oriented, depressed affect Results CBC & Chem 7: 09/06/18 10:40 09/06/18 10:40 Labs: Abnormal Lab Results - Last 24 Hours (Table) 09/06/18 09/06/18 09/06/18 Range/Units 10:40 10:40 10:40 RBC 2.58 L (3.80-5.40) m/uL Hgb 7.4 L (11.4-16.0) gm/dL Hct 23.1 L (34.0-46.0) % RDW 18.3 H (11.5-15.5) % Plt Count 131 L (150-450) k/uL Lymphocytes # 0.2 L (1.0-4.8) k/uL PT 12.4 H (9.0-12.0) sec INR 1.2 H (<1.2) APTT 35.7 H (22.0-30.0) sec Sodium 131 L (137-145) mmol/L Chloride 96 L (98-107) mmol/L BUN 51 H (7-17) mg/dL Creatinine 2.71 H (0.52-1.04) mg/dL Glucose 111 H (74-99) mg/dL Calcium 8.1 L (8.4-10.2) mg/dL Total Bilirubin 1.9 H (0.2-1.3) mg/dL Alkaline Phosphatase 469 H (38-126) U/L Total Protein 4.6 L (6.3-8.2) g/dL Albumin 2.8 L (3.5-5.0) g/dL Chest x-ray: report reviewed Thrombosis Risk Factor Assmnt - DVT/VTE Prophylaxis DVT/VTE Prophylaxis: Pharmacologic Prophylaxis ordered Assessment and Plan Assessment: Presyncope due to hypotension - not responsive to IVF - continue with stress dose steroids, Cortef 100mg TID - Midodrine TID - levophed to support blood pressures - follow blood pressure - Consult critical care - check TSH Fluid overload due to CKD that is HD dependent and secondary to renal amylodosis and acute exacerbation of restrictive cardiomyopathy - HD today - nephrology recs - Strict I and O daily weight - check UA - tele - check echo to r/o significant effusion Multiple myeloma - Consult Dr. Hernandez - On velcaid, cyclophosphamide, and dexamethasone Anemia and thrombocytopenia - likely related to chemotherapy - Iron studies last month consistent with anemia of chronic disease - check B12 and folate Diarrhea - check C diff - empiric oral vanco - hold immodium - could also be chemo related Hyponatremia, chronic - repeat in AM - at baseline The patient is admitted with an anticipated greater than 2 midnight stay for evaluation of hypotension and acute exacerbation of CHF. Surrogate decision-maker: CODE STATUS:Full DVT prophylaxis: heparin Discussed with: patient, , Dr. Munguia, Dr. Hector, and nursing Anticipated discharge date: 5-[address]: home A total of 75 minutes was spent on the care of this complex patient more than 50% of the time was spent in counseling and care coordination.
[2018-09-06 18:39] LABS: Glucose,Whole Blood 128 mg/dL (75-99)
[2018-09-06] MEDS: SEVELAMER 800 MG TAB PO SCH (19:09)
[2018-09-06] MEDS: NOREPINEPHRINE 4 MG in SODIUM CHLORIDE 0.9% 250 ML IV SCH (19:22)
[2018-09-06] MEDS: HYDROCORTISONE SUCCINATE 100 MG/2 ML VIAL IV SCH (23:33)
[2018-09-07 06:16] LABS: Anisocytosis Slight; HCT 25.6 % (34.0-46.0); HGB 8.1 gm/dL (11.4-16.0); Hypochromasia Slight; MCH 28.6 pg (25.0-35.0); MCHC 31.7 g/dL (31.0-37.0); MCV 90.2 fL (80.0-100.0); Mean Platelet Volume 9.9; Platelet Count 112 k/uL (150-450); RBC 2.84 m/uL (3.80-5.40); RDW 18.3 % (11.5-15.5); WBC 5.7 k/uL (3.8-10.6)
[2018-09-07 06:24] LABS: INR 1.2 (<1.2); Prothrombin Time 12.6 sec (9.0-12.0)
[2018-09-07] MEDS ORDERED: LEVOTHYROXINE 25 MCG TAB PO SCH (06:30)
[2018-09-07] MEDS: MIDODRINE 5 MG TAB PO SCH ×3 (06:59→16:58)
[2018-09-07] MEDS: SEVELAMER 800 MG TAB PO SCH ×3 (06:59→16:58)
[2018-09-07] MEDS: PANTOPRAZOLE 40 MG TABLET PO SCH (07:00)
[2018-09-07 07:07] LABS: Albumin 2.5 g/dL (3.5-5.0); Calcium 8.1 mg/dL (8.4-10.2); Magnesium 2.3 mg/dL (1.6-2.3); Phosphorus 3.6 mg/dL (2.5-4.5); Potassium 3.7 mmol/L (3.5-5.1); Total Bilirubin 2.5 mg/dL (0.2-1.3); Total Protein 4.3 g/dL (6.3-8.2)
--- NOTE | 2018-09-07 08:05 | XR ---
EXAMINATION TYPE: XR chest 1V portable DATE OF EXAM: 09/07/2018 CLINICAL HISTORY: History of CHF and hypotension with shortness of breath TECHNIQUE: Single AP portable upright view of the chest is obtained. COMPARISON: Chest x-ray from one day earlier and older studies. FINDINGS: There are stable right internal jugular large-bore dialysis catheter. Increasing bibasilar opacities are present. Cardiac silhouette size is stable and enlarged. Upper lungs are clear without pneumothorax. Osseous structures are intact. Lap band device is redemonstrated. IMPRESSION: Worsening small right greater than left pleural effusions and associated bibasilar atelec tasis and/or infiltrate on background cardiomegaly. Correlate for CHF exacerbation or worsening fluid overload state.
[2018-09-07] MEDS: HYDROCORTISONE SUCCINATE 100 MG/2 ML VIAL IV SCH ×2 (08:38→16:58)
[2018-09-07] MEDS: ALLOPURINOL 100 MG TAB PO SCH (08:39)
[2018-09-07] MEDS: ASPIRIN 81 MG PO SCH (08:39)
[2018-09-07 09:00] LABS: T4, Free (Free Thyroxine) 0.81 ng/dL (0.78-2.19)
--- NOTE | 2018-09-07 10:05 | P.NPCON ---
History of Present Illness - Reason for Consult acute renal failure - History of Present Illness Reason for consultation: Acute kidney injury, hemodialysis dependent. History of present illness: Patient is a 58-year-old female seen in renal consultation for acute kidney injury. She is currently hemodialysis dependent. She is maintained on hemodialysis on a Tuesday schedule. Patient was started on hemodialysis last week while she was admitted at [facility] for the treatment of multiple myeloma. Patient presented to the hospital after having a syncopal episode at home yesterday. Patient denies losing consciousness but her mentation was definitely altered. She hasn't been making much urine. Patient admits to significant edema in her lower extremity is. Oral intake has been poor. Albumin level is 2.5. Denies chest pain or shortness of breath. She tolerated hemodialysis yesterday with 2 L ultrafiltration. She did require vasopressor support. She is maintained on IV steroids as well as Midodrine now. Levophed has been discontinued. Patient was also noted to be positive for C. diff while at [facility]. Culture this admission is positive for gram- negative rods. She is maintained on antibiotics. Vital signs are stable. General: The patient appeared well nourished and normally developed. HEENT: Head exam is unremarkable. Neck is without jugular venous distension. LUNGS: Lungs are clear to auscultation and percussion. Breath sounds decreased. HEART: Rate and Rhythm are regular. First and second heart sounds normal. No murmurs, rubs or gallops. ABDOMEN: Abdominal exam reveals normal bowel sounds. Non-tender. EXTREMITITES: 3+ edema. 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 Pt was transferred to [facility] on 07/[facility]18 and diagnosed with light chain amyloidosis/light chain proximal tubulopathy/cardiorenal syndrome/CHF, hyponatremia. Pt had temporary dialysis. Other hx: Diagnosed with multiple myeloma in April, blood clot in Left eye (origin unknown)...blood work/dx tests such as carotid u/s performed to determine etiology but remains unknown, normocytic anemia, hypotension, hypothyroid, varicosities. History of Any Multi-Drug Resistant Organisms: None Reported Past Surgical History: Bariatric Surgery, Orthopedic Surgery, Tonsillectomy Additional Past Surgical History / Comment(s): 05/2018 bone marrow bx and renal bx, 06/2018 r sided dialysis port X 2, right knee meniscus repair (Feb 2016), Bariatric Lap band May 2009, bilateral cataract surgery (November 2013), laser L eye surgery for retinal occlusion, lin carpal tunnel, colonoscopy, bilateral breast reduction. Past Anesthesia/Blood Transfusion Reactions: No Reported Reaction Additional Past Anesthesia/Blood Transfusion Reaction / Comment(s): No hx of blood transfusion Smoking Status: Never smoker - Past Family History Father History Unknown: Yes Family Medical History: Unable to Obtain Additional Family Medical History / Comment(s): does not know who her biologic father is Mother Family Medical History: No Reported History Additional Family Medical History / Comment(s): Mother may have had some mental issues. Medications and Allergies Home Medications Medication Instructions Recorded Confirmed Type Aspirin [Adult Low Dose Aspirin EC] 81 mg PO DAILY 03/08/16 09/06/18 History Acyclovir 400 mg PO DAILY 07/07/18 09/06/18 History Magnesium Oxide 400 mg PO DAILY 07/07/18 09/06/18 History Allopurinol [Zyloprim] 100 mg PO DAILY 08/04/18 09/06/18 History Levothyroxine Sodium [Synthroid] 25 mcg PO DAILY 08/04/18 09/06/18 History Acetaminophen with Codeine 1 tab PO Q4H PRN 09/06/18 09/06/18 History [Tylenol with Codeine #4 Tablet] Artificial Tears-Hypromellose 1 drops BOTH EYES TID PRN 09/06/18 09/06/18 History [Artificial Tear Drops] Loperamide [Imodium] 2 mg PO Q4H PRN 09/06/18 09/06/18 History Meclizine [Antivert] 12.5 mg PO TID PRN 09/06/18 09/06/18 History Midodrine HCl [ProAmatine] 10 mg PO TID 09/06/18 09/06/18 History Pantoprazole Sodium [Protonix] 40 mg PO DAILY 09/06/18 09/06/18 History Polyethylene Glycol 3350 [Miralax] 17 gm PO DAILY PRN 09/06/18 09/06/18 History Prochlorperazine [Compazine] 10 mg PO AC-TID 09/06/18 09/06/18 History Sennosides [Senna] 17.2 mg PO HS 09/06/18 09/06/18 History Sevelamer [Renvela] 800 mg PO TID-W/MEALS 09/06/18 09/06/18 History Allergies Allergy/AdvReac Type Severity Reaction Status Date / Time No Known Allergies Allergy Verified 09/06/18 10:27 Physical Exam Vitals: Vital Signs Temp Pulse Pulse Resp BP BP Pulse Ox 09/07/18 09:00 84 95/51 97 09/07/18 08:00 98.0 F 107 H 18 93/54 96 09/07/18 07:00 79 16 92/49 09/07/18 06:45 79 16 92/52 92 L 09/07/18 06:30 79 16 87/49 09/07/18 06:15 80 25 H 103/54 96 09/07/18 06:00 87 20 105/56 96 09/07/18 05:45 84 15 105/56 96 09/07/18 05:30 85 16 102/54 89 L 09/07/18 05:15 87 17 106/53 98 09/07/18 05:00 90 19 98/53 96 09/07/18 04:45 86 16 103/57 95 09/07/18 04:30 88 19 104/59 93 L 09/07/18 04:15 89 32 H 105/58 93 L 09/07/18 04:00 89 19 106/58 95 09/07/18 03:45 89 16 108/56 97 09/07/18 03:30 89 20 109/59 95 09/07/18 03:15 88 17 104/56 94 L 09/07/18 03:00 89 19 107/58 09/07/18 02:45 89 16 104/55 95 09/07/18 02:30 89 18 105/54 91 L 09/07/18 02:15 89 21 100/56 95 09/07/18 02:00 89 18 104/56 95 09/07/18 01:45 89 17 101/56 95 09/07/18 01:30 89 17 98/54 95 09/07/18 01:15 90 12 98/54 95 07/25/19 01:00 89 17 98/53 07/25/19 00:45 89 15 97/54 95 09/07/18 00:30 89 17 96/56 09/07/18 00:15 89 15 97/55 95 09/07/18 00:00 97.5 F L 89 16 100/56 96 09/06/18 23:49 88 14 100/59 95 09/06/18 23:45 87 15 100/59 93 L 09/06/18 23:30 86 15 89/60 95 09/06/18 23:15 88 10 L 90/54 97 09/06/18 23:00 78 13 82/45 95 09/06/18 22:45 80 15 84/46 94 L 09/06/18 22:30 80 11 L 92/43 94 L 09/06/18 22:15 86 15 100/56 96 09/06/18 22:01 97.9 F 84 16 91/51 09/06/18 22:00 85 13 91/51 96 09/06/18 21:45 81 16 92/52 97 09/06/18 21:30 81 11 L 96/50 96 09/06/18 21:15 81 18 92/50 97 09/06/18 21:00 81 18 93/60 97 09/06/18 20:45 81 13 94/51 96 09/06/18 20:30 104 H 14 103/62 09/06/18 20:15 105 H 15 105/60 96 09/06/18 20:00 97.9 F 105 H 13 104/57 97 09/06/18 19:45 104 H 11 L 99/54 96 09/06/18 19:30 94 16 84/51 97 09/06/18 19:15 93 7 L 81/47 95 09/06/18 19:00 93 20 81/47 95 09/06/18 18:45 93 17 81/47 09/06/18 18:35 97.5 F L 92 20 85/54 09/06/18 18:21 98.8 F 71 18 82/49 95 09/06/18 18:15 82/49 09/06/18 18:00 91 82/48 95 09/06/18 17:30 92 86/52 95 09/06/18 17:00 90 90/55 94 L 09/06/18 16:30 91 99/59 94 L 09/06/18 16:12 93 18 90/54 96 09/06/18 14:54 98.6 F 90 18 85/49 96 09/06/18 13:56 90 16 82/50 96 09/06/18 13:24 64 16 68/37 94 L 09/06/18 13:00 65 65/32 95 09/06/18 12:30 64 67/37 94 L 09/06/18 12:00 65 72/38 97 09/06/18 11:30 67 73/38 96 09/06/18 11:00 62 70/36 97 09/06/18 10:30 70 20 72/40 97 09/06/18 10:00 71 22 96 09/06/18 09:59 71 20 97 Intake and Output 09/06/18 09/07/18 09/07/18 22:59 06:59 14:59 Intake Total 320 629.168 372.963 Output Total 2000 0 150 Balance -1680 629.168 222.963 Intake: IV 80 160 60 0.9 80 160 60 Intake, IV Titration 69.168 112.963 Amount Norepinephrine 4 mg In 69.168 12.963 Sodium Chloride 0.9% 250 ml @ 0.05 MCG/KG/MIN 15. 554 mls/hr IV .[id number] [facility] Rx#:[id number] cefTRIAXone 1 gm In 100 Sodium Chloride 0.9% 50 ml @ 100 mls/hr IVPB Q24HR [facility] Rx#:[id number] Oral 240 400 200 Output: Urine 0 0 0 Stool 150 Hemodialysis 2000 Other: Weight 81.8 kg Results - Lab Results Most recent lab results Calcium 8.1 mg/dL (8.4-10.2) L 09/07/18 05:56 Phosphorus 3.6 mg/dL (2.5-4.5) 09/07/18 05:56 Magnesium 2.3 mg/dL (1.6-2.3) 09/07/18 05:56 09/07/18 05:56 09/07/18 05:56 Assessment and Plan Plan: Assessment: 1. Acute kidney injury, currently hemodialysis dependent. Etiology is hypotension and multiple myeloma. 2. Hypotension maintained on midodrine as well as steroids. Off vasopressors. 3. Volume overload secondary to hypoalbuminemia. She also has underlying infiltrative cardiomyopathy. 4. Hypervolemic hyponatremia. 5. Anemia of chronic kidney disease. Also related to underlying myeloma. 6. Multiple myeloma. Oncology following. 7. Syncopal episode. Likely related to underlying hypotension. 8. Recent C. diff. Maintain on oral vancomycin. 9. Gram-negative bacteremia. Plan: 25 g IV albumin 4 doses. Start Lasix 80 mg IV twice daily. Hemodialysis tomorrow. Add Aranesp. Maintain midodrine and IV steroids. Follow-up cultures. Thank you for the consultation. I will continue to follow the patient with you during her hospital stay.
[2018-09-07] MEDS ORDERED: FUROSEMIDE 10 MG/ML 10 ML VIAL IV SCH ×3 (10:32→21:00)
--- NOTE | 2018-09-07 11:08 | ECHOF ---
Referral Reason:pericardial effusion. MEASUREMENTS -------- HEIGHT: 167.6 cm WEIGHT: 81.6 kg BP: 92/49 IVSd: 1.7 cm (0.6 - 1.1) LVIDd: 3.5 cm (3.9 - 5.3) LVPWd: 1.9 cm (0.6 - 1.1) IVSs: 2.1 cm LVIDs: 2.4 cm LVPWs: 2.1 cm AR PHT: 369 ms RAP: 20.00 mmHg RVSP: 58.86 mmHg FINDINGS -------- Sinus rhythm. LIMITED study , pericardial effusion. There is severe concentric left ventricular hypertrophy. Overall left ventricular systolic function is normal with, an EF between 55 - 60 %. Pylzxtbz-qg-wvrqlo mitral regurgitation is present. Moderate tricuspid regurgitation present. There is moderate to severe pulmonary hypertension. The right ventricular systolic pressure, as measured by Doppler, is 58.86mmHg. The inferior vena cava is dilated with no significant inspiratory collapse which is consistent estima alberto right atrial pressure of >20 mmHg. There is a small, generalized pericardial effusion present. CONCLUSIONS -------- 1. Sinus rhythm. 2. There is severe concentric left ventricular hypertrophy. 3. Overall left ventricular systolic function is normal with, an EF between 55 - 60 %. 4. Vdtrkpjf-ev-khtahl mitral regurgitation is present. 5. Moderate tricuspid regurgitation present. 6. There is moderate to severe pulmonary hypertension. 7. The right ventricular systolic pressure, as measured by Doppler, is 58.86mmHg. 8. The inferior vena cava is dilated with no significant inspiratory collapse which is consistent est imated right atrial pressure of >20 mmHg. 9. There is a small, generalized pericardial effusion present. [employer]ING [employer]ENT: Dorina Blanco [facility]
[2018-09-07 12:19] LABS: Amorphous Sediment,Urine Moderate /hpf; Appearance,Urine Turbid (Clear); Bacteria,Urine Occasional /hpf; Bilirubin,Urine 1+ (Negative); Blood,Urine Small (Negative); Color,Urine Dark Brown; Glucose,Urine (UA) Negative (Negative); Ketones,Urine Negative (Negative); Leukocyte Esterase,Urine Large (Negative); Nitrite,Urine Negative (Negative); Protein,Urine 4+ (Negative); RBC,Urine 16 /hpf (0-5); Specific Gravity,Urine 1.028 (1.001-1.035); Squamous Epithelial Cell,Urine 1 /hpf (0-4); Urobilinogen,Urine <2.0 mg/dL (<2.0)
[2018-09-07] MEDS: NOREPINEPHRINE 4 MG in SODIUM CHLORIDE 0.9% 250 ML IV SCH (13:40)
[2018-09-07] MEDS: DARBEPOETIN ALFA 40 MCG/0.4 ML SYRINGE SQ SCH (14:01)
--- NOTE | 2018-09-07 14:33 | P.PN ---
Subjective Progress Note Date: 09/07/18 58-year-old female patient with known history of multiple myeloma and amyloidosis and End stage renal disease is currently on hemodialysis. The patient also has infiltrative cardiomyopathy with diastolic dysfunction and a preserved LV function. The patient is on hemodialysis for the time being 3 times a week and has last hemodialysis session was 2 days ago. The patient came into the emergency department after being discharged from [facility] approximately 5 days ago. The patient wasn't [facility] meeting with complications of myeloma and renal failure between 08/09/2018 and 09/02/2018. During this time the patient was started on systemic chemotherapy with a combination of cyclophosphamide, Velcade and Decadron. She opted to continue her treatment locally with Dr. Hernandez. Patient came into the ED because of generalized weakness and hypotension and near syncope. As mentioned her last chemo was 5 days ago. She was getting progressively more weak. Acting out of ordinary last night and somewhat confused. She was having lightheadedness and some degree of shortness of breath and in his edema all over especially in lower extremities. The patient was also having diarrhea over the past 2-3 days. No chest pain. Initial systolic blood pressure was in the low 80s. Upon arrival to the emergency department the patient was afebrile. The systolic blood pressure was recorded to be as low as 70 with diastolic of 36. The patient was given a total of 2 L of IV fluid. The patient following that improved. Nevertheless, based on the extensive surgery. Volume overload, total decided not to give her any further fluids. Nephrology was involved in the case and the patient will be started on hemodialysis. Meanwhile, it was advised for this patient to moved to the ICU for any pressor treatment if needed should he develop any hypotension. Patient's white cell count is at 5.5. The patient seemed was at 7.4. Renal function shows a BUN of 51 with a creatinine of 2.7. The troponin was not measures. Lactic acid level is at 2.0. ProBNP level is 150,000. The chest x-ray shows chronic right basilar infiltration/atelectasis. Note that this patient typically runs a low blood pressure. She is on midodrine outpatient basis 10 mg by mouth 3 times a day. On 09/07/2018 the patient is awake and alert. She has no specific complaints. She has still increased edema lower extremities. The blood cultures showing gram-negative rods and final cultures sensitivities are still pending. The patient underwent hemodialysis yesterday and during the last as the patient required pressors in the form of norepinephrine infusion which is running at a very low-dose for now. Her systolic blood pressures are low 80s. She is asymptomatic with her low blood pressure. Urine output is almost not present. The patient was seen by nephrology. IV Lasix was given to generate some urine output. The patient was also placed on IV antibiotics and currently she is on IV Rocephin. She is also on midodrine 10 mg by mouth 3 times a day. Chest x- ray shows some increased vascular congestion and right-sided pleural effusion more than left. No altered mentation. No headache. No chest pain. No other significant events overnight. The diarrhea has subsided. Objective - Vital Signs Vital signs: Vital Signs Temp 98 F 09/07/18 13:00 Pulse 86 09/07/18 14:00 Resp 14 09/07/18 14:00 BP 80/41 09/07/18 14:00 Pulse Ox 96 09/07/18 14:00 Intake & Output 09/06/18 09/07/18 09/07/18 18:59 06:59 18:59 Intake Total 949.168 787.585 Output Total 1999 200 Balance -1050.832 587.585 Weight 81.647 kg 81.8 kg 81.8 kg Intake: IV 240 160 0.9 240 160 Intake, IV Titration 69.168 177.585 Amount Albumin Human 25% 50 ml 50 In Empty Bag 1 bag @ 50 mls/hr IVPB Q12HR [facility] Rx# :[id number] Norepinephrine 4 mg In 69.168 27.585 Sodium Chloride 0.9% 250 ml @ 0.05 MCG/KG/MIN 15. 554 mls/hr IV .[id number] [facility] Rx#:[id number] cefTRIAXone 1 gm In 100 Sodium Chloride 0.9% 50 ml @ 100 mls/hr IVPB Q24HR [facility] Rx#:[id number] Oral 640 450 Output: Urine 0 50 Stool 150 Hemodialysis 1999 - Exam General: Chronically ill-appearing, no distress, appears at stated age Derm: warm, dry Head exam was generally normal. There was no scleral icterus or corneal arcus. Mucous membranes were moist. Neck was supple and without jugular venous distension, thyromegaly, or carotid bruits. Carotids were easily palpable bilaterally. There was no adenopathy. Eyes: EOMI, no lid lag, anicteric sclera Mouth: no lip lesion, mucus membranes moist Cardiovascular: S1S2 reg, no murmur, positive posterior tibial pulse bilateral, Lungs: rhonchi bilateral bases, no rhonchi, no rales , no accessory muscle use Abdominal: soft, nontender to palpation, no guarding, no appreciable organomegaly Ext: no gross muscle atrophy,3+ edema bilateral lower extremities, no contractures Neuro: CN II-XI grossly intact, no focal neuro deficits Psych: Alert, oriented, upset and the patient feels increasingly depressed and anxious Examination of the skin revealed no evidence of significant rashes, suspicious appearing nevi or other concerning lesions. The patient has multiple areas of ecchymosis on her skin related to previous episodes especially over the anterior abdominal wall. - Labs CBC & Chem 7: 09/07/18 05:56 09/07/18 05:56 Labs: Abnormal Lab Results - Last 24 Hours (Table) 09/06/18 09/07/18 09/07/18 Range/Units 18:35 05:56 05:56 RBC 2.84 L (3.80-5.40) m/uL Hgb 8.1 L (11.4-16.0) gm/dL Hct 25.6 L (34.0-46.0) % RDW 18.3 H (11.5-15.5) % Plt Count 112 L (150-450) k/uL PT 12.6 H (9.0-12.0) sec INR 1.2 H (<1.2) Sodium (137-145) mmol/L Chloride (98-107) mmol/L BUN (7-17) mg/dL Creatinine (0.52-1.04) mg/dL Glucose (74-99) mg/dL POC Glucose (mg/dL) 128 H (75-99) mg/dL Calcium (8.4-10.2) mg/dL Total Bilirubin (0.2-1.3) mg/dL Alkaline Phosphatase (38-126) U/L Total Protein (6.3-8.2) g/dL Albumin (3.5-5.0) g/dL TSH (0.465-4.680) mIU/L Urine Appearance (Clear) Urine Protein (Negative) Urine Blood (Negative) Urine Bilirubin (Negative) Ur Leukocyte Esterase (Negative) Urine RBC (0-5) /hpf Urine WBC (0-5) /hpf Urine WBC Clumps (None) /hpf Amorphous Sediment (None) /hpf Urine Bacteria (None) /hpf 09/07/18 09/07/18 Range/Units 05:56 11:35 RBC (3.80-5.40) m/uL Hgb (11.4-16.0) gm/dL Hct (34.0-46.0) % RDW (11.5-15.5) % Plt Count (150-450) k/uL PT (9.0-12.0) sec INR (<1.2) Sodium 130 L (137-145) mmol/L Chloride 97 L (98-107) mmol/L BUN 38 H (7-17) mg/dL Creatinine 2.23 H (0.52-1.04) mg/dL Glucose 101 H (74-99) mg/dL POC Glucose (mg/dL) (75-99) mg/dL Calcium 8.1 L (8.4-10.2) mg/dL Total Bilirubin 2.5 H (0.2-1.3) mg/dL Alkaline Phosphatase 448 H (38-126) U/L Total Protein 4.3 L (6.3-8.2) g/dL Albumin 2.5 L (3.5-5.0) g/dL TSH 9.930 H (0.465-4.680) mIU/L Urine Appearance Turbid H (Clear) Urine Protein 4+ H (Negative) Urine Blood Small H (Negative) Urine Bilirubin 1+ H (Negative) Ur Leukocyte Esterase Large H (Negative) Urine RBC 16 H (0-5) /hpf Urine WBC 116 H (0-5) /hpf Urine WBC Clumps Many H (None) /hpf Amorphous Sediment Moderate H (None) /hpf Urine Bacteria Occasional H (None) /hpf Microbiology - Last 24 Hours (Table) 09/06/18 11:50 Blood Culture Gram Stain - Preliminary Blood 09/06/18 11:50 Blood Culture - Final Blood Assessment and Plan Plan: 1 hypotension , currently under investigation. Consider underlying gram- negative septicemia knowing that the patient's blood cultures showing gram- negative april . The patient underwent dialysis and the patient is currently on low-dose norepinephrine infusion. Noted the patient or there is a lower blood pressure probably due to component of low vascular tone the neuropathy in the setting of amyloid disease/myeloma. The patient was given 2 L of IV fluids in the emergency department. The patient underwent hemodialysis yesterday. Awaiting further cultures and sensitivities. Currently on IV Rocephin. 2 multiple myeloma started on systemic treatment with a combination of Cytoxan and Decadron and Velcade. The patient has light chain disease 3 myeloma kidney. The patient is currently dialysis dependent and her renal failure is End stage requiring dialysis. Her last dialysis was around 2 days ago and the patient is going to undergo another session of dialysis today. 4 diastolic heart failure/infiltrative cardiomyopathy probably due to myeloma/amyloidosis disease 5 small to moderate pericardial effusion, please refer to the most is the echocardiogram that showed infiltrative heart disease secondary to amyloidosis and concentric LVH with ejection fraction of 55-60% and moderate to severe mitral regurgitation 6 diarrhea, rule out C. diff colitis, subsided and stool evaluation for C. diff was not done. 7 massive anasarca and volume overload with extensive lower extremity edema 8 chronic hypertension 9 chronic anxiety/depression 10 chronic anemia 11 hypothyroidism currently on Synthroid, the TSH remains low and the free T4 is low normal and will increase the thyroid hormone replacement dose 12 hyperlipidemia Plan IV Rocephin. Awaiting final cultures and sensitivities. Discontinue oral vancomycin. Pressors to be continued and it'll be gradually weaned off. Repeat echo with limited views showed severe concentric LVH and diastolic heart failure with moderate to severe mitral regurgitation moderate to severe pulmonary hypertension with a PA pressure of 58. There is also small generalized pericardial effusion present.. I will also change the Synthroid to 50 g daily basis. Continue stress dose hydrocortisone for now. We'll continue to follow.
--- NOTE | 2018-09-07 18:09 | P.PN ---
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 When EMS arrived to the home her blood pressure was low. On arrival to the ER was in the 60s and she received 2 L of IV fluids. Dr. Munguia was contacted who recommended treatment with Solu-Cortef and Midodrin. He recommended no more than 2 L of IV fluids and initiation of vasopressors should she remain hypotensive. Dr. Hernandez was contacted. Initial laboratory analysis was consistent with her known anemia, thrombocytopenia, and chronic kidney disease. She is known to have a slightly elevated bilirubin at 1.9. AST and ALT within normal limits. BNP was elevated at 150,000. Chest x-ray showed right basilar persistent infiltrate. Patient had recently been hospitalized that,from 08/09 through 09/02 for multiple myeloma related kidney dysfunction and infiltrative cardiomyopathy. She was initiated on systemic chemotherapy as mentioned above and dialysis. She did not get plasma pheresis during the hospital stay. She was also diagnosed with C. diff infection and reported completion of 10 days of oral vancomycin therapy. Arrangements were made for admission to ICU with planned vasopressors and HD. She was started on Vanco oral while C diff testing pending. She underwent HD on 09/06 with the removal of 2L of fluid. She did require levophed support. C diff was negative and vanco was stopped. She was found to have gram negative bacteremia and was started on rocephin. ID was consulted. Diuresis was attenpted with lasix and IVF. Patient seen and examined at bedside. She reports feeling well today. Shortness of breath is at baseline, lower extremity edema is at baseline. No chest pain. No diarrhea episodes since last evening. Still has not produced any urine. Objective - Vital Signs Vital signs: Vital Signs Temp 98.0 F 09/07/18 16:00 Pulse 79 09/07/18 17:00 Resp 14 09/07/18 17:00 BP 103/56 09/07/18 17:00 Pulse Ox 95 09/07/18 17:00 Intake & Output 09/06/18 09/07/18 09/07/18 18:59 06:59 18:59 Intake Total 949.168 847.585 Output Total 1999 200 Balance -1050.832 647.585 Weight 81.647 kg 81.8 kg 81.8 kg Intake: IV 240 220 0.9 240 220 Intake, IV Titration 69.168 177.585 Amount Albumin Human 25% 50 ml 50 In Empty Bag 1 bag @ 50 mls/hr IVPB Q12HR [facility] Rx# :[id number] Norepinephrine 4 mg In 69.168 27.585 Sodium Chloride 0.9% 250 ml @ 0.05 MCG/KG/MIN 15. 554 mls/hr IV .[id number] [facility] Rx#:[id number] cefTRIAXone 1 gm In 100 Sodium Chloride 0.9% 50 ml @ 100 mls/hr IVPB Q24HR [facility] Rx#:[id number] Oral 640 450 Output: Urine 0 50 Stool 150 Hemodialysis 1999 Other: # Bowel Movements 1 - Exam General: Ill appearing, mild distress, appears at stated age Derm: warm, dry Head: atraumatic, normocephalic, symmetric Eyes: EOMI, no lid lag, anicteric sclera Mouth: no lip lesion, mucus membranes moist Cardiovascular: S1S2 reg, no murmur, positive posterior tibial pulse bilateral, Lungs: Crackles bilateral bases, no rhonchi, no rales , no accessory muscle use Abdominal: soft, nontender to palpation, no guarding, no appreciable organomegaly Ext: no gross muscle atrophy, diffuse anasarca, no contractures Neuro: CN II-XI grossly intact, no focal neuro deficits Psych: Alert, oriented, appropriate affect - Labs CBC & Chem 7: 09/07/18 05:56 09/07/18 05:56 Labs: Abnormal Lab Results - Last 24 Hours (Table) 09/06/18 09/07/18 09/07/18 Range/Units 18:35 05:56 05:56 RBC 2.84 L (3.80-5.40) m/uL Hgb 8.1 L (11.4-16.0) gm/dL Hct 25.6 L (34.0-46.0) % RDW 18.3 H (11.5-15.5) % Plt Count 112 L (150-450) k/uL PT 12.6 H (9.0-12.0) sec INR 1.2 H (<1.2) Sodium (137-145) mmol/L Chloride (98-107) mmol/L BUN (7-17) mg/dL Creatinine (0.52-1.04) mg/dL Glucose (74-99) mg/dL POC Glucose (mg/dL) 128 H (75-99) mg/dL Calcium (8.4-10.2) mg/dL Total Bilirubin (0.2-1.3) mg/dL Alkaline Phosphatase (38-126) U/L Total Protein (6.3-8.2) g/dL Albumin (3.5-5.0) g/dL TSH (0.465-4.680) mIU/L Urine Appearance (Clear) Urine Protein (Negative) Urine Blood (Negative) Urine Bilirubin (Negative) Ur Leukocyte Esterase (Negative) Urine RBC (0-5) /hpf Urine WBC (0-5) /hpf Urine WBC Clumps (None) /hpf Amorphous Sediment (None) /hpf Urine Bacteria (None) /hpf 09/07/18 09/07/18 Range/Units 05:56 11:35 RBC (3.80-5.40) m/uL Hgb (11.4-16.0) gm/dL Hct (34.0-46.0) % RDW (11.5-15.5) % Plt Count (150-450) k/uL PT (9.0-12.0) sec INR (<1.2) Sodium 130 L (137-145) mmol/L Chloride 97 L (98-107) mmol/L BUN 38 H (7-17) mg/dL Creatinine 2.23 H (0.52-1.04) mg/dL Glucose 101 H (74-99) mg/dL POC Glucose (mg/dL) (75-99) mg/dL Calcium 8.1 L (8.4-10.2) mg/dL Total Bilirubin 2.5 H (0.2-1.3) mg/dL Alkaline Phosphatase 448 H (38-126) U/L Total Protein 4.3 L (6.3-8.2) g/dL Albumin 2.5 L (3.5-5.0) g/dL TSH 9.930 H (0.465-4.680) mIU/L Urine Appearance Turbid H (Clear) Urine Protein 4+ H (Negative) Urine Blood Small H (Negative) Urine Bilirubin 1+ H (Negative) Ur Leukocyte Esterase Large H (Negative) Urine RBC 16 H (0-5) /hpf Urine WBC 116 H (0-5) /hpf Urine WBC Clumps Many H (None) /hpf Amorphous Sediment Moderate H (None) /hpf Urine Bacteria Occasional H (None) /hpf Microbiology - Last 24 Hours (Table) 09/07/18 11:35 Urine Culture - Preliminary Urine,Voided 09/06/18 11:50 Blood Culture Gram Stain - Preliminary Blood Blood Culture - Preliminary Gram Neg Bacilli 09/06/18 11:50 Blood Culture - Final Blood Assessment and Plan Assessment: Presyncope due to hypotension - not responsive to IVF - continue with stress dose steroids, Cortef 100mg TID - Midodrine TID - levophed to support blood pressures - follow blood pressure - critical care recs, echo without significant pleural effusion - TSH 9 and down trending with levothyroxine recently started Fluid overload due to CKD that is HD dependent and secondary to renal amylodosis and acute exacerbation of restrictive cardiomyopathy EF 50-55% - HD again tomorrow, trial of lasix and albumin - nephrology recs appreciated - Strict I and O daily weight - tele Gram negative bacteremia with probable UTI - carol ann - await ID recs - repeat blood culture obtained Multiple myeloma - Consult Dr. Hernandez - On velcaid, cyclophosphamide, and dexamethasone Anemia and thrombocytopenia - likely related to chemotherapy - Iron studies last month consistent with anemia of chronic disease - check B12 and folate Diarrhea. likely chemo induced - C diff negative - prn imodium Hyponatremia, chronic - repeat in AM - at baseline DVT prophylaxis: heparin Discussed with: patient, , Dr. Munguia, Dr. Byers, and nursing Anticipated discharge date: 4-[address]: home A total of 45 minutes was spent on the care of this complex patient more than 50% of the time was spent in counseling and care coordination.
[2018-09-07] MEDS ORDERED: CEFEPIME 2 GM in SODIUM CHLORIDE 0.9% 50 ML IVPB SCH (18:15)
[2018-09-07] MEDS: LOPERAMIDE 2 MG CAP PO PRN (19:01)
[2018-09-07] MEDS: CEFEPIME 2 GM in SODIUM CHLORIDE 0.9% 100 ML IVPB SCH (19:54)
[2018-09-07] MEDS ORDERED: ALBUMIN HUMAN 25% 50 ML in EMPTY BAG 1 BAG IVPB SCH (21:00)
[2018-09-07] MEDS: ALBUMIN HUMAN 25% 50 ML in EMPTY BAG 1 BAG IVPB SCH (23:59)
[2018-09-08] MEDS: FUROSEMIDE 10 MG/ML 10 ML VIAL IV SCH ×2 (01:06→12:18)
[2018-09-08] MEDS: NOREPINEPHRINE 4 MG in SODIUM CHLORIDE 0.9% 250 ML IV SCH (05:19)
--- NOTE | 2018-09-08 07:09 | P.CONS ---
History of Present Illness - Reason for Consult Consult date: 09/07/18 Gram-negative bacteremia Requesting physician: Steffi Melissa - Chief Complaint Generalized weakness and passed out - History of Present Illness Patient is a 58-year-old female with a past medical history significant for multiple myeloma currently on chemotherapy last given about 5 days before presentation to the hospital the patient also have a history of end- stage renal disease on hemodialysis through the right subclavian permacatheter, patient is presenting to the [facility] ER with generalized weakness and passed out and mental status changes history of any fever or chills. Denies having any headache and no URI symptoms no chest pain specialist minimal shortness of breath and occasional cough but not bringing up any sputum. Denies having any abdominal pain no nausea no vomiting she did have some diarrhea about 3 loose stools per day for a day or 2 before presentation to the hospital the patient does not make any urine hence no urinary symptoms with the symptom the patient was evaluated by the ER physician patient did not have any fever or elevated white count patient was hypotensive requiring fluid boluses and was subsequently admitted to the ICU she did have blood culture drawn in the ER which is coming back with gram-negative bacilli patient was started on Rocephin and infectious disease was consulted for further recommendation regarding antibiotic therapy Review of Systems Positive points has been mentioned in HPI rest of the systems are negative Past Medical History Past Medical History: Cancer, Hyperlipidemia, Thyroid Disorder Additional Past Medical History / Comment(s): Infiltrative cardiomyopathy/EF 65- 79%/severe mitral regurg with concern for possible amyloidosis, hypotention, chronic elevated troponin, moderate protein calorie malnutrition, renal amyloid, CKD stage IV. Pt was transferred to [facility] on 07/21/18 and diagnosed with light chain amyloidosis/light chain proximal tubulopathy/cardiorenal syndrome/CHF, hyponatremia. Pt had temporary dialysis. Other hx: Diagnosed with multiple myeloma in April, blood clot in Left eye (origin unknown)...blood work/dx tests such as carotid u/s performed to determine etiology but remains unknown, normocytic anemia, hypotension, hypothyroid, varicosities. History of Any Multi-Drug Resistant Organisms: None Reported Past Surgical History: Bariatric Surgery, Orthopedic Surgery, Tonsillectomy Additional Past Surgical History / Comment(s): 05/2018 bone marrow bx and renal bx, 06/2018 r sided dialysis port X 2, right knee meniscus repair (Feb 2016), Bariatric Lap band May 2009, bilateral cataract surgery (November 2013), laser L eye surgery for retinal occlusion, lin carpal tunnel, colonoscopy, bilateral breast reduction. Past Anesthesia/Blood Transfusion Reactions: No Reported Reaction Additional Past Anesthesia/Blood Transfusion Reaction / Comm: No hx of blood transfusion Smoking Status: Never smoker - Past Family History Father History Unknown: Yes Family Medical History: Unable to Obtain Additional Family Medical History / Comment(s): does not know who her biologic father is Mother Family Medical History: No Reported History Additional Family Medical History / Comment(s): Mother may have had some mental issues. Medications and Allergies Home Medications Medication Instructions Recorded Confirmed Type Aspirin [Adult Low Dose Aspirin EC] 81 mg PO DAILY 03/08/16 09/06/18 History Acyclovir 400 mg PO DAILY 07/07/18 09/06/18 History Magnesium Oxide 400 mg PO DAILY 07/07/18 09/06/18 History Allopurinol [Zyloprim] 100 mg PO DAILY 08/04/18 09/06/18 History Levothyroxine Sodium [Synthroid] 25 mcg PO DAILY 08/04/18 09/06/18 History Acetaminophen with Codeine 1 tab PO Q4H PRN 09/06/18 09/06/18 History [Tylenol with Codeine #4 Tablet] Artificial Tears-Hypromellose 1 drops BOTH EYES TID PRN 09/06/18 09/06/18 History [Artificial Tear Drops] Loperamide [Imodium] 2 mg PO Q4H PRN 09/06/18 09/06/18 History Meclizine [Antivert] 12.5 mg PO TID PRN 09/06/18 09/06/18 History Midodrine HCl [ProAmatine] 10 mg PO TID 09/06/18 09/06/18 History Pantoprazole Sodium [Protonix] 40 mg PO DAILY 09/06/18 09/06/18 History Polyethylene Glycol 3350 [Miralax] 17 gm PO DAILY PRN 09/06/18 09/06/18 History Prochlorperazine [Compazine] 10 mg PO AC-TID 09/06/18 09/06/18 History Sennosides [Senna] 17.2 mg PO HS 09/06/18 09/06/18 History Sevelamer [Renvela] 800 mg PO TID-W/MEALS 09/06/18 09/06/18 History Allergies Allergy/AdvReac Type Severity Reaction Status Date / Time No Known Allergies Allergy Verified 09/06/18 10:27 Physical Exam Vitals: Vital Signs Temp Pulse Pulse Resp BP BP Pulse Ox 09/07/18 17:00 79 14 103/56 95 09/07/18 16:00 98.0 F 78 13 97/51 97 09/07/18 15:45 16 09/07/18 15:00 81 16 89/54 97 09/07/18 14:00 86 14 80/41 96 09/07/18 13:00 98 F 77 17 94/46 96 09/07/18 12:00 98 F 68 13 94/46 96 09/07/18 11:00 77 98/56 97 09/07/18 10:00 69 20 77/42 09/07/18 09:00 84 95/51 97 09/07/18 08:00 98.0 F 107 H 18 93/54 96 09/07/18 07:00 79 16 92/49 09/07/18 06:45 79 16 92/52 92 L 09/07/18 06:30 79 16 87/49 09/07/18 06:15 80 25 H 103/54 96 09/07/18 06:00 87 20 105/56 96 09/07/18 05:45 84 15 105/56 96 09/07/18 05:30 85 16 102/54 89 L 09/07/18 05:15 87 17 106/53 98 09/07/18 05:00 90 19 98/53 96 09/07/18 04:45 86 16 103/57 95 09/07/18 04:30 88 19 104/59 93 L 09/07/18 04:15 89 32 H 105/58 93 L 09/07/18 04:00 89 19 106/58 95 09/07/18 03:45 89 16 108/56 97 09/07/18 03:30 89 20 109/59 95 09/07/18 03:15 88 17 104/56 94 L 09/07/18 03:00 89 19 107/58 09/07/18 02:45 89 16 104/55 95 09/07/18 02:30 89 18 105/54 91 L 09/07/18 02:15 89 21 100/56 95 09/07/18 02:00 89 18 104/56 95 09/07/18 01:45 89 17 101/56 95 09/07/18 01:30 89 17 98/54 95 09/07/18 01:15 90 12 98/54 95 09/07/18 01:00 89 17 98/53 09/07/18 00:45 89 15 97/54 95 09/07/18 00:30 89 17 96/56 09/07/18 00:15 89 15 97/55 95 09/07/18 00:00 97.5 F L 89 16 100/56 96 09/06/18 23:49 88 14 100/59 95 09/06/18 23:45 87 15 100/59 93 L 09/06/18 23:30 86 15 89/60 95 09/06/18 23:15 88 10 L 90/54 97 09/06/18 23:00 78 13 82/45 95 09/06/18 22:45 80 15 84/46 94 L 09/06/18 22:30 80 11 L 92/43 94 L 09/06/18 22:15 86 15 100/56 96 09/06/18 22:01 97.9 F 84 16 91/51 09/06/18 22:00 85 13 91/51 96 09/06/18 21:45 81 16 92/52 97 09/06/18 21:30 81 11 L 96/50 96 09/06/18 21:15 81 18 92/50 97 09/06/18 21:00 81 18 93/60 97 09/06/18 20:45 81 13 94/51 96 09/06/18 20:30 104 H 14 103/62 09/06/18 20:15 105 H 15 105/60 96 09/06/18 20:00 97.9 F 105 H 13 104/57 97 09/06/18 19:45 104 H 11 L 99/54 96 09/06/18 19:30 94 16 84/51 97 09/06/18 19:15 93 7 L 81/47 95 09/06/18 19:00 93 20 81/47 95 09/06/18 18:45 93 17 81/47 09/06/18 18:35 97.5 F L 92 20 85/54 09/06/18 18:21 98.8 F 71 18 82/49 95 09/06/18 18:15 82/49 Intake and Output 09/07/18 09/07/18 09/07/18 06:59 14:59 22:59 Intake Total 629.168 787.585 60 Output Total 0 200 Balance 629.168 587.585 60 Intake: IV 160 160 60 0.9 160 160 60 Intake, IV Titration 69.168 177.585 Amount Albumin Human 25% 50 ml 50 In Empty Bag 1 bag @ 50 mls/hr IVPB Q12HR [facility] Rx# :[id number] Norepinephrine 4 mg In 69.168 27.585 Sodium Chloride 0.9% 250 ml @ 0.05 MCG/KG/MIN 15. 554 mls/hr IV .[id number] [facility] Rx#:[id number] cefTRIAXone 1 gm In 100 Sodium Chloride 0.9% 50 ml @ 100 mls/hr IVPB Q24HR [facility] Rx#:[id number] Oral 400 450 Output: Urine 0 50 Stool 150 Other: # Bowel Movements 1 1 Weight 81.8 kg 81.8 kg GENERAL DESCRIPTION: Middle-aged female lying in bed, no distress. No tachypnea or accessory muscle of respiration use. HEENT: Shows Pallor , no scleral icterus. Oral mucous membrane is dry. No pharyngeal erythema or thrush NECK: Trachea central, no thyromegaly. LUNGS: Unlabored breathing. Decreased breath sound at the base. No wheeze or crackle. HEART: S1, S2, regular rate and rhythm. No loud murmur ABDOMEN: Soft, no tenderness , guarding or rigidity, no organomegaly EXTREMITIES: No edema of feet. SKIN: No rash, no masses palpable. NEUROLOGICAL: The patient is awake, alert, oriented x3, mood and affect normal. Results CBC & Chem 7: 09/07/18 05:56 09/07/18 05:56 Labs: Abnormal Lab Results - Last 24 Hours (Table) 09/06/18 09/07/18 09/07/18 Range/Units 18:35 05:56 05:56 RBC 2.84 L (3.80-5.40) m/uL Hgb 8.1 L (11.4-16.0) gm/dL Hct 25.6 L (34.0-46.0) % RDW 18.3 H (11.5-15.5) % Plt Count 112 L (150-450) k/uL PT 12.6 H (9.0-12.0) sec INR 1.2 H (<1.2) Sodium (137-145) mmol/L Chloride (98-107) mmol/L BUN (7-17) mg/dL Creatinine (0.52-1.04) mg/dL Glucose (74-99) mg/dL POC Glucose (mg/dL) 128 H (75-99) mg/dL Calcium (8.4-10.2) mg/dL Total Bilirubin (0.2-1.3) mg/dL Alkaline Phosphatase (38-126) U/L Total Protein (6.3-8.2) g/dL Albumin (3.5-5.0) g/dL TSH (0.465-4.680) mIU/L Urine Appearance (Clear) Urine Protein (Negative) Urine Blood (Negative) Urine Bilirubin (Negative) Ur Leukocyte Esterase (Negative) Urine RBC (0-5) /hpf Urine WBC (0-5) /hpf Urine WBC Clumps (None) /hpf Amorphous Sediment (None) /hpf Urine Bacteria (None) /hpf 09/07/18 09/07/18 Range/Units 05:56 11:35 RBC (3.80-5.40) m/uL Hgb (11.4-16.0) gm/dL Hct (34.0-46.0) % RDW (11.5-15.5) % Plt Count (150-450) k/uL PT (9.0-12.0) sec INR (<1.2) Sodium 130 L (137-145) mmol/L Chloride 97 L (98-107) mmol/L BUN 38 H (7-17) mg/dL Creatinine 2.23 H (0.52-1.04) mg/dL Glucose 101 H (74-99) mg/dL POC Glucose (mg/dL) (75-99) mg/dL Calcium 8.1 L (8.4-10.2) mg/dL Total Bilirubin 2.5 H (0.2-1.3) mg/dL Alkaline Phosphatase 448 H (38-126) U/L Total Protein 4.3 L (6.3-8.2) g/dL Albumin 2.5 L (3.5-5.0) g/dL TSH 9.930 H (0.465-4.680) mIU/L Urine Appearance Turbid H (Clear) Urine Protein 4+ H (Negative) Urine Blood Small H (Negative) Urine Bilirubin 1+ H (Negative) Ur Leukocyte Esterase Large H (Negative) Urine RBC 16 H (0-5) /hpf Urine WBC 116 H (0-5) /hpf Urine WBC Clumps Many H (None) /hpf Amorphous Sediment Moderate H (None) /hpf Urine Bacteria Occasional H (None) /hpf Microbiology - Last 24 Hours (Table) 09/07/18 11:35 Urine Culture - Preliminary Urine,Voided 09/06/18 11:50 Blood Culture Gram Stain - Preliminary Blood Blood Culture - Preliminary Gram Neg Bacilli 09/06/18 11:50 Blood Culture - Final Blood Assessment and Plan Assessment: 1-patient with gram-negative bacteremia in this patient presented to the hospital with denies weakness almost passed out currently with no abdominal pain no significant respiratory symptoms and does not make any urine in this patient who is a dialysis patient getting dialysis through the right subclavian permacatheter likely the source of this bacteremia 2-diarrhea stool for C. diff is negative Plan: 1-blood culture will be repeated peripheral as well as from the dialysis catheter at the time of dialysis tomorrow 2-discontinue the Rocephin 3- start the patient on cefepime 2 g daily dose has been adjusted to kidney function we will follow on clinical condition and culture to further adjust medication if needed Thank you for this consultation will follow this patient along with you Time with Patient: Greater than 30
[2018-09-08 07:31] LABS: Anisocytosis Slight; HCT 25.4 % (34.0-46.0); HGB 8.2 gm/dL (11.4-16.0); Hypochromasia Moderate; MCHC 32.2 g/dL (31.0-37.0); MCV 93.3 fL (80.0-100.0); Mean Platelet Volume 9.9; Platelet Count 106 k/uL (150-450); RBC 2.73 m/uL (3.80-5.40); RDW 18.5 % (11.5-15.5); WBC 8.5 k/uL (3.8-10.6)
[2018-09-08] MEDS: LOPERAMIDE 2 MG CAP PO PRN (07:53)
[2018-09-08] MEDS: LEVOTHYROXINE 50 MCG TAB PO SCH (07:53)
[2018-09-08 07:54] LABS: Calcium 7.9 mg/dL (8.4-10.2)
--- NOTE | 2018-09-08 08:26 | XR ---
EXAMINATION TYPE: XR chest 1V portable DATE OF EXAM: 09/08/2018 HISTORY: Shortness of breath. COMPARISON: 09/07/2018 TECHNIQUE: Single view of the chest is submitted. FINDINGS: Demonstrated are scattered senescent parenchymal change. Large bore central venous line unchanged in position. Right basilar pleural effusion and probable ate lectasis persists. Improved aeration left lower lobe. The heart is stable. Hilar and mediastinal structures are within normal limits. Degenerative changes are seen of the dorsal spine. IMPRESSION: 1. Large bore central venous line unchanged in position. Right basilar pleural effusion and probable atelectasis persists. Improved aeration left lower lobe.
[2018-09-08] MEDS: MIDODRINE 5 MG TAB PO SCH ×3 (08:48→17:27)
[2018-09-08] MEDS: PANTOPRAZOLE 40 MG TABLET PO SCH (08:49)
[2018-09-08] MEDS: SEVELAMER 800 MG TAB PO SCH ×3 (08:49→17:27)
[2018-09-08] MEDS: CEFEPIME 2 GM in SODIUM CHLORIDE 0.9% 100 ML IVPB SCH (08:50)
[2018-09-08] MEDS: ALLOPURINOL 100 MG TAB PO SCH (08:50)
[2018-09-08] MEDS: ASPIRIN 81 MG PO SCH (08:50)
[2018-09-08] MEDS: HYDROCORTISONE SUCCINATE 100 MG/2 ML VIAL IV SCH ×4 (08:50→23:44)
--- NOTE | 2018-09-08 09:16 | P.PN ---
Subjective Patient is seen in follow-up for acute kidney injury, currently hemodialysis dependent. She is maintained on hemodialysis on a Tuesday schedule. Currently seen while undergoing hemodialysis. She is on low-dose Levophed. She is also receiving IV albumin and IV Lasix. However she remains oliguric. Blood culture is positive for gram-negative bacilli. Vital signs are stable. General: The patient appeared well nourished and normally developed. HEENT: Head exam is unremarkable. Neck is without jugular venous distension. LUNGS: Lungs are clear to auscultation and percussion. Breath sounds decreased. HEART: Rate and Rhythm are regular. First and second heart sounds normal. No murmurs, rubs or gallops. ABDOMEN: Abdominal exam reveals normal bowel sounds. Non-tender and non- distended. EXTREMITITES: 2+ edema. Objective - Vital Signs Vital signs: Vital Signs Temp 97.6 F 09/08/18 04:01 Pulse 98 09/08/18 08:00 Resp 16 09/08/18 08:00 BP 99/66 09/08/18 08:00 Pulse Ox 95 09/08/18 08:00 Intake & Output 09/07/18 09/08/18 09/08/18 18:59 06:59 18:59 Intake Total 1067.585 413.087 20 Output Total 200 0 Balance 867.585 413.087 20 Weight 81.8 kg 83 kg Intake: IV 240 370 20 0.9 240 220 20 Albumin Human 25% 50 ml 50 In Empty Bag 1 bag @ 50 mls/hr IVPB Q12H [facility] Rx#: [id number] Cefepime 2 gm In Sodium 100 Chloride 0.9% 100 ml @ 200 mls/hr IVPB DAILY [facility] Rx#:[id number] Intake, IV Titration 177.585 43.087 Amount Albumin Human 25% 50 ml 50 In Empty Bag 1 bag @ 50 mls/hr IVPB Q12HR [facility] Rx# :[id number] Norepinephrine 4 mg In 27.585 43.087 Sodium Chloride 0.9% 250 ml @ 0.05 MCG/KG/MIN 15. 554 mls/hr IV .[id number] [facility] Rx#:[id number] cefTRIAXone 1 gm In 100 Sodium Chloride 0.9% 50 ml @ 100 mls/hr IVPB Q24HR [facility] Rx#:[id number] Oral 650 Output: Urine 50 0 Stool 150 Other: # Bowel Movements 1 1 - Labs CBC & Chem 7: 09/08/18 05:52 09/08/18 05:52 Labs: Abnormal Lab Results - Last 24 Hours (Table) 09/07/18 09/08/18 09/08/18 Range/Units 11:35 05:52 05:52 RBC 2.73 L (3.80-5.40) m/uL Hgb 8.2 L (11.4-16.0) gm/dL Hct 25.4 L (34.0-46.0) % RDW 18.5 H (11.5-15.5) % Plt Count 106 L (150-450) k/uL Sodium 132 L (137-145) mmol/L BUN 51 H (7-17) mg/dL Creatinine 2.80 H (0.52-1.04) mg/dL Glucose 124 H (74-99) mg/dL Calcium 7.9 L (8.4-10.2) mg/dL Urine Appearance Turbid H (Clear) Urine Protein 4+ H (Negative) Urine Blood Small H (Negative) Urine Bilirubin 1+ H (Negative) Ur Leukocyte Esterase Large H (Negative) Urine RBC 16 H (0-5) /hpf Urine WBC 116 H (0-5) /hpf Urine WBC Clumps Many H (None) /hpf Amorphous Sediment Moderate H (None) /hpf Urine Bacteria Occasional H (None) /hpf Microbiology - Last 24 Hours (Table) 09/07/18 11:35 Urine Culture - Preliminary Urine,Voided 09/06/18 11:50 Blood Culture Gram Stain - Preliminary Blood Blood Culture - Preliminary Gram Neg Bacilli Assessment and Plan Plan: Assessment: 1. Acute kidney injury, currently hemodialysis dependent. Etiology is hypotension and multiple myeloma. 2. Hypotension maintained on midodrine as well as steroids. On low-dose Levophed. 3. Volume overload secondary to hypoalbuminemia. She also has underlying infil trative cardiomyopathy. 4. Hypervolemic hyponatremia. Better. 5. Anemia of chronic kidney disease maintained on Aranesp. Also related to underlying myeloma. 6. Multiple myeloma. Oncology following. 7. Syncopal episode. Likely related to underlying hypotension. 8. Recent C. diff. Maintained on oral vancomycin. 9. Gram-negative bacteremia. Plan: 25 g IV albumin 4 doses - to receive last 2 doses today. Maintain Lasix 80 mg IV twice daily. Currently seen while undergoing hemodialysis. Maintain midodrine and IV steroids. Follow-up cultures.
[2018-09-08] MEDS: ALBUMIN HUMAN 25% 50 ML in EMPTY BAG 1 BAG IVPB SCH ×2 (10:19→23:44)
--- NOTE | 2018-09-08 12:20 | P.PN ---
Subjective Progress Note Date: 09/08/18 58-year-old female patient with known history of multiple myeloma and amyloidosis and End stage renal disease is currently on hemodialysis. The patient also has infiltrative cardiomyopathy with diastolic dysfunction and a preserved LV function. The patient is on hemodialysis for the time being 3 times a week and has last hemodialysis session was 2 days ago. The patient came into the emergency department after being discharged from [facility] approximately 5 days ago. The patient wasn't [facility] meeting with complications of myeloma and renal failure between 08/09/2018 and 09/02/2018. During this time the patient was started on systemic chemotherapy with a combination of cyclophosphamide, Velcade and Decadron. She opted to continue her treatment locally with Dr. Hernandez. Patient came into the ED because of generalized weakness and hypotension and near syncope. As mentioned her last chemo was 5 days ago. She was getting progressively more weak. Acting out of ordinary last night and somewhat confused. She was having lightheadedness and some degree of shortness of breath and in his edema all over especially in lower extremities. The patient was also having diarrhea over the past 2-3 days. No chest pain. Initial systolic blood pressure was in the low 80s. Upon arrival to the emergency department the patient was afebrile. The systolic blood pressure was recorded to be as low as 70 with diastolic of 36. The patient was given a total of 2 L of IV fluid. The patient following that improved. Nevertheless, based on the extensive surgery. Volume overload, total decided not to give her any further fluids. Nephrology was involved in the case and the patient will be started on hemodialysis. Meanwhile, it was advised for this patient to moved to the ICU for any pressor treatment if needed should he develop any hypotension. Patient's white cell count is at 5.5. The patient seemed was at 7.4. Renal function shows a BUN of 51 with a creatinine of 2.7. The troponin was not measures. Lactic acid level is at 2.0. ProBNP level is 150,000. The chest x-ray shows chronic right basilar infiltration/atelectasis. Note that this patient typically runs a low blood pressure. She is on midodrine outpatient basis 10 mg by mouth 3 times a day. On 09/07/2018 the patient is awake and alert. She has no specific complaints. She has still increased edema lower extremities. The blood cultures showing gram-negative rods and final cultures sensitivities are still pending. The patient underwent hemodialysis yesterday and during the last as the patient required pressors in the form of norepinephrine infusion which is running at a very low-dose for now. Her systolic blood pressures are low 80s. She is asymptomatic with her low blood pressure. Urine output is almost not present. The patient was seen by nephrology. IV Lasix was given to generate some urine output. The patient was also placed on IV antibiotics and currently she is on IV Rocephin. She is also on midodrine 10 mg by mouth 3 times a day. Chest x- ray shows some increased vascular congestion and right-sided pleural effusion more than left. No altered mentation. No headache. No chest pain. No other significant events overnight. The diarrhea has subsided. On 09/08/2018 I'm seeing this patient for a follow-up. The patient is still having issues with blood pressure. She is on low-dose levo fed. Blood culture came back positive for prevention and the suspected source is the urinary tract. The patient is currently on IV cefepime. The patient underwent hemodialysis today. No major issues with blood pressure hypotension. The dialysis catheter site is dry clean and intact. Cultures of been sent from the catheter and the urine. The patient has no new complaints. She is quite weak. She is lethargic. She has increased lower extremities edema. She is on IV Lasix. Her urine output is minimal. No nausea. No vomiting. No abdominal pain. Oral intake is diminished and the patient is not taking her full dietary requirements. Seconds at 8.5. Rest of the blood work and electrodes are all within normal limits. TSH was at 9.9 and the Synthroid dose has been modified. Objective - Vital Signs Vital signs: Vital Signs Temp 97.4 F L 09/08/18 10:56 Pulse 73 09/08/18 11:00 Resp 12 09/08/18 11:00 BP 106/59 09/08/18 11:00 Pulse Ox 95 09/08/18 11:00 Intake & Output 09/07/18 09/08/18 09/08/18 18:59 06:59 18:59 Intake Total 1067.585 413.087 230 Output Total 200 0 2700 Balance 867.585 413.087 -2470 Weight 81.8 kg 83 kg Intake: IV 240 370 230 0.9 240 220 80 Albumin Human 25% 50 ml 50 50 In Empty Bag 1 bag @ 50 mls/hr IVPB Q12H [facility] Rx#: [id number] Cefepime 2 gm In Sodium 100 100 Chloride 0.9% 100 ml @ 200 mls/hr IVPB DAILY [facility] Rx#:[id number] Intake, IV Titration 177.585 43.087 Amount Albumin Human 25% 50 ml 50 In Empty Bag 1 bag @ 50 mls/hr IVPB Q12HR [facility] Rx# :[id number] Norepinephrine 4 mg In 27.585 43.087 Sodium Chloride 0.9% 250 ml @ 0.05 MCG/KG/MIN 15. 554 mls/hr IV .[id number] [facility] Rx#:[id number] cefTRIAXone 1 gm In 100 Sodium Chloride 0.9% 50 ml @ 100 mls/hr IVPB Q24HR [facility] Rx#:[id number] Oral 650 Output: Urine 50 0 Stool 150 Hemodialysis 2700 Other: # Bowel Movements 1 1 - Exam General: Chronically ill-appearing, no distress, appears at stated age Derm: warm, dry Head exam was generally normal. There was no scleral icterus or corneal arcus. Mucous membranes were moist. Neck was supple and without jugular venous distension, thyromegaly, or carotid bruits. Carotids were easily palpable bilaterally. There was no adenopathy. Eyes: EOMI, no lid lag, anicteric sclera Mouth: no lip lesion, mucus membranes moist Cardiovascular: S1S2 reg, no murmur, positive posterior tibial pulse bilateral, Lungs: rhonchi bilateral bases, no rhonchi, no rales , no accessory muscle use Abdominal: soft, nontender to palpation, no guarding, no appreciable organomegaly Ext: no gross muscle atrophy,3+ edema bilateral lower extremities, no contractures Neuro: CN II-XI grossly intact, no focal neuro deficits Psych: Alert, oriented, upset and the patient feels increasingly depressed and anxious Examination of the skin revealed no evidence of significant rashes, suspicious appearing nevi or other concerning lesions. The patient has multiple areas of ecchymosis on her skin related to previous episodes especially over the anterior abdominal wall. - Labs CBC & Chem 7: 09/08/18 05:52 09/08/18 05:52 Labs: Abnormal Lab Results - Last 24 Hours (Table) 09/07/18 09/08/18 09/08/18 Range/Units 11:35 05:52 05:52 RBC 2.73 L (3.80-5.40) m/uL Hgb 8.2 L (11.4-16.0) gm/dL Hct 25.4 L (34.0-46.0) % RDW 18.5 H (11.5-15.5) % Plt Count 106 L (150-450) k/uL Sodium 132 L (137-145) mmol/L BUN 51 H (7-17) mg/dL Creatinine 2.80 H (0.52-1.04) mg/dL Glucose 124 H (74-99) mg/dL Calcium 7.9 L (8.4-10.2) mg/dL Urine Appearance Turbid H (Clear) Urine Protein 4+ H (Negative) Urine Blood Small H (Negative) Urine Bilirubin 1+ H (Negative) Ur Leukocyte Esterase Large H (Negative) Urine RBC 16 H (0-5) /hpf Urine WBC 116 H (0-5) /hpf Urine WBC Clumps Many H (None) /hpf Amorphous Sediment Moderate H (None) /hpf Urine Bacteria Occasional H (None) /hpf Microbiology - Last 24 Hours (Table) 09/06/18 11:50 Blood Culture Gram Stain - Final Blood Blood Culture - Final Providencia rettgeri 09/07/18 11:35 Urine Culture - Preliminary Urine,Voided Assessment and Plan Plan: 1 hypotension , likely secondary to bacteremia/sepsis and the patient has been cultured to have probably dementia in the blood. Consider urinary tract infection with secondary septicemia. The patient is hypotensive and still requiring low-dose pressors for hemodynamic support.. Note the patient or there is a lower blood pressure probably due to component of low vascular tone the neuropathy in the setting of amyloid disease/myeloma. The patient was given 2 L of IV fluids in the emergency department. The patient underwent hemodialysis yesterday. Meanwhile the patient was given IV cefepime. Further cultures of been sent. Infectious disease on the case. She is still pressor dependent for now and she is staying in ICU for the time being. 2 multiple myeloma started on systemic treatment with a combination of Cytoxan and Decadron and Velcade. The patient has light chain disease 3 myeloma kidney. The patient is currently dialysis dependent and her renal failure is End stage requiring dialysis. Her last dialysis was around 2 days ago and the patient is going to undergo another session of dialysis today. 4 diastolic heart failure/infiltrative cardiomyopathy probably due to myeloma/amyloidosis disease 5 small to moderate pericardial effusion, please refer to the most is the echocardiogram that showed infiltrative heart disease secondary to amyloidosis and concentric LVH with ejection fraction of 55-60% and moderate to severe mitral regurgitation 6 diarrhea, rule out C. diff colitis, subsided and stool evaluation for C. diff was not done. 7 massive anasarca and volume overload with extensive lower extremity edema 8 chronic hypertension 9 chronic anxiety/depression 10 chronic anemia 11 hypothyroidism currently on Synthroid, the TSH remains low and the free T4 is low normal and will increase the thyroid hormone replacement dose 12 hyperlipidemia Plan Continue IV cefepime. Wean pressors if possible. Hemodialysis was conducted today. Advance diet. We'll continue to follow. Condition is still critical. Prognosis poor baseline above-mentioned comorbidities.
--- NOTE | 2018-09-08 14:51 | P.CONS ---
History of Present Illness - Reason for Consult Consult date: 09/07/18 Multiple myeloma, light chain, on treatment Requesting physician: Mary Delgado - Chief Complaint Hypotension - History of Present Illness Ms Styles is a pleasant white female, initially seen in consult at [facility] on 06/07/18. The patient came into the emergency room on 05/26/18 with severe headache, with workup essentially negative including imaging and labs. The patient subsequently developed abdominal pain, with some nausea, for appetite, dizziness, vision changes generalized weakness palpitations and difficulty in breathing. She also reported increased urinary frequency. She also developed leg swelling. The symptoms progressed quite rapidly over 7 days. On admission she was found to have acute renal failure with creatinine 9.75. She was started on emergent dialysis. Urine immunofixation was positive for lambda measures 14, while serum showed high levels of lambda light chain, at 1.7 g/L. 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 She started Pulse dose decadron inpatient, she eventually received almost all of cycle 1 ofDex and velcade outpatient, she took less then 1 week oral Revlimid. She had recurrent inpatient admissions for hypotension, neck pain. She and her family were convinced that the Velcade was causing the problem,she was switched to Kyprolis, however the patient again developed hypotension. She was hospitalized and developed evidence of pulmonary fluid overload and leg swelling from IV fluids. Prior echocardiogram had shown evidence of myocardial infiltration, likely with light chains. This was felt to be causing restriction leading to the above. She was seen by cardiology, who felt that they did not have any definite treatment to offer. She was transferred to [facility]. Patient was assessed, and not felt to require plasmapheresis as her blood pressure was quite stable. Based on the clinical picture it did not appear that her symptoms were related to Velcade. She therefore received day 1 of cycle 2 of Velcade, as well as four-day bolus of Decadron. She was also seen by the bone marrow transplant service and not deemed to be a transplant candidate at this time. She was subsequently discharged, and resume follow-up in this office. She again had hypotension after day 4 of cycle 2 of Velcade. She received Cycle 2, Day 11 08/03/18. Oovernight she started having severe abdominal pain, in ER she was hypotensive, despite aggressive IV fluid hydration she was started on IV pressors and admitted to the ICU for evaluation by cardiology and oncology. After discussing case with multiple specialties it was felt that she was having progressive symptoms from cardiac amloidosis. She was transferred to [facility] under Dr. Perry. She received CyBorD, first cycle to be completed here Tuesday. Pt admitted for progressive weakness, cultures gram neg bacilli. SHe is weak, not eating much. Review of Systems 14 point review of systems is negative except stated in HPI Past Medical History Past Medical History: Cancer, Hyperlipidemia, Thyroid Disorder Additional Past Medical History / Comment(s): Infiltrative cardiomyopathy/EF 65- 79%/severe mitral regurg with concern for possible amyloidosis, hypotention, chronic elevated troponin, moderate protein calorie malnutrition, renal amyloid, CKD stage IV. Pt was transferred to [facility] on 07/21/18 and diagnosed with light chain amyloidosis/light chain proximal tubulopathy/cardiorenal syndrome/CHF, hyponatremia. Pt had temporary dialysis. Other hx: Diagnosed with multiple myeloma in April, blood clot in Left eye (origin unknown)...blood work/dx tests such as carotid u/s performed to determine etiology but remains unknown, normocytic anemia, hypotension, hypothyroid, varicosities. History of Any Multi-Drug Resistant Organisms: None Reported Past Surgical History: Bariatric Surgery, Orthopedic Surgery, Tonsillectomy Additional Past Surgical History / Comment(s): 05/2018 bone marrow bx and renal bx, 06/2018 r sided dialysis port X 2, right knee meniscus repair (Feb 2016), Bariatric Lap band May 2009, bilateral cataract surgery (November 2013), laser L eye surgery for retinal occlusion, lin carpal tunnel, colonoscopy, bilateral breast reduction. Past Anesthesia/Blood Transfusion Reactions: No Reported Reaction Additional Past Anesthesia/Blood Transfusion Reaction / Comm: No hx of blood transfusion Smoking Status: Never smoker - Past Family History Father History Unknown: Yes Family Medical History: Unable to Obtain Additional Family Medical History / Comment(s): does not know who her biologic father is Mother Family Medical History: No Reported History Additional Family Medical History / Comment(s): Mother may have had some mental issues. Medications and Allergies Home Medications Medication Instructions Recorded Confirmed Type Aspirin [Adult Low Dose Aspirin EC] 81 mg PO DAILY 03/08/16 09/06/18 History Acyclovir 400 mg PO DAILY 07/07/18 09/06/18 History Magnesium Oxide 400 mg PO DAILY 07/07/18 09/06/18 History Allopurinol [Zyloprim] 100 mg PO DAILY 08/04/18 09/06/18 History Levothyroxine Sodium [Synthroid] 25 mcg PO DAILY 08/04/18 09/06/18 History Acetaminophen with Codeine 1 tab PO Q4H PRN 09/06/18 09/06/18 History [Tylenol with Codeine #4 Tablet] Artificial Tears-Hypromellose 1 drops BOTH EYES TID PRN 09/06/18 09/06/18 History [Artificial Tear Drops] Loperamide [Imodium] 2 mg PO Q4H PRN 09/06/18 09/06/18 History Meclizine [Antivert] 12.5 mg PO TID PRN 09/06/18 09/06/18 History Midodrine HCl [ProAmatine] 10 mg PO TID 09/06/18 09/06/18 History Pantoprazole Sodium [Protonix] 40 mg PO DAILY 09/06/18 09/06/18 History Polyethylene Glycol 3350 [Miralax] 17 gm PO DAILY PRN 09/06/18 09/06/18 History Prochlorperazine [Compazine] 10 mg PO AC-TID 09/06/18 09/06/18 History Sennosides [Senna] 17.2 mg PO HS 09/06/18 09/06/18 History Sevelamer [Renvela] 800 mg PO TID-W/MEALS 09/06/18 09/06/18 History Allergies Allergy/AdvReac Type Severity Reaction Status Date / Time No Known Allergies Allergy Verified 09/06/18 10:27 Physical Exam Vitals: Vital Signs Temp Pulse Pulse Resp BP BP Pulse Ox 09/07/18 14:00 86 14 80/41 96 09/07/18 13:00 98 F 77 17 94/46 96 09/07/18 12:00 98 F 68 13 94/46 96 09/07/18 11:00 77 98/56 97 09/07/18 10:00 69 20 77/42 09/07/18 09:00 84 95/51 97 09/07/18 08:00 98.0 F 107 H 18 93/54 96 09/07/18 07:00 79 16 92/49 09/07/18 06:45 79 16 92/52 92 L 09/07/18 06:30 79 16 87/49 09/07/18 06:15 80 25 H 103/54 96 09/07/18 06:00 87 20 105/56 96 09/07/18 05:45 84 15 105/56 96 09/07/18 05:30 85 16 102/54 89 L 09/07/18 05:15 87 17 106/53 98 09/07/18 05:00 90 19 98/53 96 09/07/18 04:45 86 16 103/57 95 09/07/18 04:30 88 19 104/59 93 L 09/07/18 04:15 89 32 H 105/58 93 L 09/07/18 04:00 89 19 106/58 95 09/07/18 03:45 89 16 108/56 97 09/07/18 03:30 89 20 109/59 95 09/07/18 03:15 88 17 104/56 94 L 09/07/18 03:00 89 19 107/58 09/07/18 02:45 89 16 104/55 95 09/07/18 02:30 89 18 105/54 91 L 09/07/18 02:15 89 21 100/56 95 09/07/18 02:00 89 18 104/56 95 09/07/18 01:45 89 17 101/56 95 09/07/18 01:30 89 17 98/54 95 09/07/18 01:15 90 12 98/54 95 09/07/18 01:00 89 17 98/53 09/07/18 00:45 89 15 97/54 95 09/07/18 00:30 89 17 96/56 09/07/18 00:15 89 15 97/55 95 09/07/18 00:00 97.5 F L 89 16 100/56 96 09/06/18 23:49 88 14 100/59 95 09/06/18 23:45 87 15 100/59 93 L 09/06/18 23:30 86 15 89/60 95 09/06/18 23:15 88 10 L 90/54 97 09/06/18 23:00 78 13 82/45 95 09/06/18 22:45 80 15 84/46 94 L 09/06/18 22:30 80 11 L 92/43 94 L 09/06/18 22:15 86 15 100/56 96 09/06/18 22:01 97.9 F 84 16 91/51 09/06/18 22:00 85 13 91/51 96 09/06/18 21:45 81 16 92/52 97 09/06/18 21:30 81 11 L 96/50 96 09/06/18 21:15 81 18 92/50 97 09/06/18 21:00 81 18 93/60 97 09/06/18 20:45 81 13 94/51 96 09/06/18 20:30 104 H 14 103/62 09/06/18 20:15 105 H 15 105/60 96 09/06/18 20:00 97.9 F 105 H 13 104/57 97 09/06/18 19:45 104 H 11 L 99/54 96 09/06/18 19:30 94 16 84/51 97 09/06/18 19:15 93 7 L 81/47 95 09/06/18 19:00 93 20 81/47 95 09/06/18 18:45 93 17 81/47 09/06/18 18:35 97.5 F L 92 20 85/54 09/06/18 18:21 98.8 F 71 18 82/49 95 09/06/18 18:15 82/49 09/06/18 18:00 91 82/48 95 09/06/18 17:30 92 86/52 95 09/06/18 17:00 90 90/55 94 L 09/06/18 16:30 91 99/59 94 L 09/06/18 16:12 93 18 90/54 96 Intake and Output 09/06/18 09/07/18 09/07/18 22:59 06:59 14:59 Intake Total 320 629.168 787.585 Output Total 2000 0 200 Balance -1680 629.168 587.585 Intake: IV 80 160 160 0.9 80 160 160 Intake, IV Titration 69.168 177.585 Amount Albumin Human 25% 50 ml 50 In Empty Bag 1 bag @ 50 mls/hr IVPB Q12HR [facility] Rx# :[id number] Norepinephrine 4 mg In 69.168 27.585 Sodium Chloride 0.9% 250 ml @ 0.05 MCG/KG/MIN 15. 554 mls/hr IV .[id number] [facility] Rx#:[id number] cefTRIAXone 1 gm In 100 Sodium Chloride 0.9% 50 ml @ 100 mls/hr IVPB Q24HR [facility] Rx#:[id number] Oral 240 400 450 Output: Urine 0 0 50 Stool 150 Hemodialysis 2000 Other: Weight 81.8 kg 81.8 kg - Constitutional General appearance: cooperative, no acute distress, thin - EENT Eyes: anicteric sclerae, dentition normal ENT: hearing grossly normal, normal oropharynx - Neck Neck: no lymphadenopathy - Respiratory Respiratory: bilateral: CTA, diminished - Cardiovascular Heart sounds: normal: S1, S2 Abnormal Heart Sounds: systolic murmur, no diastolic murmur, no rub, no S3 Gallop, no S4 Gallop, no click, no other leg Peripheral Edema: bilateral: 3+, Pitting - Gastrointestinal General gastrointestinal: no absent bowel sounds, no decreased bowel sounds, no distended, no hepatomegaly, no hyperactive bowel sounds, normal bowel sounds, no organomegaly, no rigid, no scaphoid, soft, no splenomegaly, no tenderness, no umbilical hernia, no ventral hernia - Integumentary Integumentary: pale - Neurologic Neurologic: CNII-XII intact - Musculoskeletal Musculoskeletal: generalized weakness - Psychiatric Psychiatric: A&O x's 3, appropriate affect, intact judgment & insight Results CBC & Chem 7: 09/08/18 05:52 09/08/18 05:52 Labs: Abnormal Lab Results - Last 24 Hours (Table) 09/06/18 09/07/18 09/07/18 Range/Units 18:35 05:56 05:56 RBC 2.84 L (3.80-5.40) m/uL Hgb 8.1 L (11.4-16.0) gm/dL Hct 25.6 L (34.0-46.0) % RDW 18.3 H (11.5-15.5) % Plt Count 112 L (150-450) k/uL PT 12.6 H (9.0-12.0) sec INR 1.2 H (<1.2) Sodium (137-145) mmol/L Chloride (98-107) mmol/L BUN (7-17) mg/dL Creatinine (0.52-1.04) mg/dL Glucose (74-99) mg/dL POC Glucose (mg/dL) 128 H (75-99) mg/dL Calcium (8.4-10.2) mg/dL Total Bilirubin (0.2-1.3) mg/dL Alkaline Phosphatase (38-126) U/L Total Protein (6.3-8.2) g/dL Albumin (3.5-5.0) g/dL TSH (0.465-4.680) mIU/L Urine Appearance (Clear) Urine Protein (Negative) Urine Blood (Negative) Urine Bilirubin (Negative) Ur Leukocyte Esterase (Negative) Urine RBC (0-5) /hpf Urine WBC (0-5) /hpf Urine WBC Clumps (None) /hpf Amorphous Sediment (None) /hpf Urine Bacteria (None) /hpf 09/07/18 09/07/18 Range/Units 05:56 11:35 RBC (3.80-5.40) m/uL Hgb (11.4-16.0) gm/dL Hct (34.0-46.0) % RDW (11.5-15.5) % Plt Count (150-450) k/uL PT (9.0-12.0) sec INR (<1.2) Sodium 130 L (137-145) mmol/L Chloride 97 L (98-107) mmol/L BUN 38 H (7-17) mg/dL Creatinine 2.23 H (0.52-1.04) mg/dL Glucose 101 H (74-99) mg/dL POC Glucose (mg/dL) (75-99) mg/dL Calcium 8.1 L (8.4-10.2) mg/dL Total Bilirubin 2.5 H (0.2-1.3) mg/dL Alkaline Phosphatase 448 H (38-126) U/L Total Protein 4.3 L (6.3-8.2) g/dL Albumin 2.5 L (3.5-5.0) g/dL TSH 9.930 H (0.465-4.680) mIU/L Urine Appearance Turbid H (Clear) Urine Protein 4+ H (Negative) Urine Blood Small H (Negative) Urine Bilirubin 1+ H (Negative) Ur Leukocyte Esterase Large H (Negative) Urine RBC 16 H (0-5) /hpf Urine WBC 116 H (0-5) /hpf Urine WBC Clumps Many H (None) /hpf Amorphous Sediment Moderate H (None) /hpf Urine Bacteria Occasional H (None) /hpf Microbiology - Last 24 Hours (Table) 09/06/18 11:50 Blood Culture Gram Stain - Preliminary Blood 09/06/18 11:50 Blood Culture - Final Blood Chest x-ray: report reviewed Assessment and Plan Assessment: Treatment per ID (1) Bacteremia Current Visit: Yes Status: Acute Priority: High Code(s): R78.81 - BACTEREMIA SNOMED Code(s): 6994968 (2) Multiple myeloma Narrative/Plan: Diagnosis and treatment as outlined in HPI. Was due to complete cycle 1 of CyBorD this Tuesday, this will be held until infection cleared. Current Visit: Yes Status: Acute Priority: High Code(s): C90.00 - MULTIPLE MYELOMA NOT HAVING ACHIEVED REMISSION SNOMED Code(s): 506749388 (3) Cardiac amyloidosis Current Visit: Yes Status: Acute Code(s): E85.4 - ORGAN-LIMITED AMYLOIDOSIS; I43 - CARDIOMYOPATHY IN DISEASES CLASSIFIED ELSEWHERE SNOMED Code(s): 92332916 (4) Renal amyloidosis Narrative/Plan: Nephrology consulted Current Visit: No Status: Acute Priority: High Code(s): E85.4 - ORGAN- LIMITED AMYLOIDOSIS; N08 - GLOMERULAR DISORDERS IN DISEASES CLASSIFIED ELSEWHERE SNOMED Code(s): 40962435 Plan: She has labs at [facility] on Tuesday will f/u.
--- NOTE | 2018-09-08 15:46 | P.PN ---
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 When EMS arrived to the home her blood pressure was low. On arrival to the ER was in the 60s and she received 2 L of IV fluids. Dr. Munguia was contacted who recommended treatment with Solu-Cortef and Midodrin. He recommended no more than 2 L of IV fluids and initiation of vasopressors should she remain hypotensive. Dr. Hernandez was contacted. Initial laboratory analysis was consistent with her known anemia, thrombocytopenia, and chronic kidney disease. She is known to have a slightly elevated bilirubin at 1.9. AST and ALT within normal limits. BNP was elevated at 150,000. Chest x-ray showed right basilar persistent infiltrate. Patient had recently been hospitalized that,from 08/09 through 09/02 for multiple myeloma related kidney dysfunction and infiltrative cardiomyopathy. She was initiated on systemic chemotherapy as mentioned above and dialysis. She did not get plasma pheresis during the hospital stay. She was also diagnosed with C. diff infection and reported completion of 10 days of oral vancomycin therapy. Arrangements were made for admission to ICU with planned vasopressors and HD. She was started on Vanco oral while C diff testing pending. She underwent HD on 09/06 with the removal of 2L of fluid. She did require levophed support. C diff was negative and vanco was stopped. She was found to have gram negative bacteremia and was started on rocephin. ID was consulted. Diuresis was attempted with lasix and IVF. She again had HD on 09/08. Patient seen and examined at bedside. She reports feeling okay today, no chest pain or shortness of breath, having some diarrhea, edema unchanged, feeling cold with dialysis Objective - Vital Signs Vital signs: Vital Signs Temp 97.4 F L 09/08/18 10:56 Pulse 77 09/08/18 13:30 Resp 11 L 09/08/18 13:30 BP 112/65 09/08/18 13:30 Pulse Ox 96 09/08/18 13:30 Intake & Output 09/07/18 09/08/18 09/08/18 18:59 06:59 18:59 Intake Total 1067.585 413.087 290 Output Total 200 0 2700 Balance 867.585 413.087 -2410 Weight 81.8 kg 83 kg Intake: IV 240 370 290 0.9 240 220 140 Albumin Human 25% 50 ml 50 50 In Empty Bag 1 bag @ 50 mls/hr IVPB Q12H [facility] Rx#: [id number] Cefepime 2 gm In Sodium 100 100 Chloride 0.9% 100 ml @ 200 mls/hr IVPB DAILY [facility] Rx#:[id number] Intake, IV Titration 177.585 43.087 Amount Albumin Human 25% 50 ml 50 In Empty Bag 1 bag @ 50 mls/hr IVPB Q12HR [facility] Rx# :[id number] Norepinephrine 4 mg In 27.585 43.087 Sodium Chloride 0.9% 250 ml @ 0.05 MCG/KG/MIN 15. 554 mls/hr IV .[id number] [facility] Rx#:[id number] cefTRIAXone 1 gm In 100 Sodium Chloride 0.9% 50 ml @ 100 mls/hr IVPB Q24HR [facility] Rx#:[id number] Oral 650 Output: Urine 50 0 Stool 150 Hemodialysis 2700 Other: # Bowel Movements 1 1 - Exam General: Ill appearing, mild distress, appears at stated age Derm: warm, weeping Head: atraumatic, normocephalic, symmetric Eyes: EOMI, no lid lag, anicteric sclera Mouth: no lip lesion, mucus membranes moist Cardiovascular: S1S2 reg, no murmur, positive posterior tibial pulse bilateral, Lungs: Crackles bilateral bases, no rhonchi, no rales , no accessory muscle use Abdominal: soft, nontender to palpation, no guarding, no appreciable organomegaly Ext: no gross muscle atrophy, diffuse anasarca, no contractures Neuro: CN II-XI grossly intact, no focal neuro deficits Psych: Alert, oriented, appropriate affect - Labs CBC & Chem 7: 09/08/18 05:52 09/08/18 05:52 Labs: Abnormal Lab Results - Last 24 Hours (Table) 09/08/18 09/08/18 Range/Units 05:52 05:52 RBC 2.73 L (3.80-5.40) m/uL Hgb 8.2 L (11.4-16.0) gm/dL Hct 25.4 L (34.0-46.0) % RDW 18.5 H (11.5-15.5) % Plt Count 106 L (150-450) k/uL Sodium 132 L (137-145) mmol/L BUN 51 H (7-17) mg/dL Creatinine 2.80 H (0.52-1.04) mg/dL Glucose 124 H (74-99) mg/dL Calcium 7.9 L (8.4-10.2) mg/dL Microbiology - Last 24 Hours (Table) 09/07/18 11:15 Blood Culture - Preliminary Blood No Growth after 24 hours 09/07/18 11:35 Urine Culture - Preliminary Urine,Voided Gram Neg Bacilli 09/06/18 11:50 Blood Culture Gram Stain - Final Blood Blood Culture - Final Providencia rettgeri Assessment and Plan Assessment: Presyncope due to hypotension - not responsive to IVF - continue with stress dose steroids, Cortef 100mg TID - Midodrine TID - levophed to support blood pressures - follow blood pressure - critical care recs, echo without significant pleural effusion - TSH 9 and down trending with levothyroxine recently started, levothyroxine incresed on 09/08 Fluid overload due to CKD that is HD dependent and secondary to renal amylodosis and acute exacerbation of restrictive cardiomyopathy EF 50-55% - HD today, not responsive to lasix - nephrology recs appreciated - Strict I and O daily weight - tele Providenica bacteremia with probable UTI - cefepime - ID recs appreciated - repeat blood culture obtained Multiple myeloma - Consult Dr. Hernandez - On Bortezomib, cyclophosphamide, and dexamethasone Anemia and thrombocytopenia - likely related to chemotherapy - Iron studies last month consistent with anemia of chronic disease - B12 and folate pending Diarrhea. likely chemo induced - C diff negative - prn imodium Hyponatremia, chronic - repeat in AM - at baseline DVT prophylaxis: heparin Discussed with: patient, , Dr. Munguia, Dr. Byers, and nursing Anticipated discharge date: 3-[address]: home A total of 35 minutes was spent on the care of this complex patient more than 50 % of the time was spent in counseling and care coordination.
--- NOTE | 2018-09-08 19:54 | PN ---
PROGRESS NOTE DATE OF SERVICE: 09/08/2018. REASON FOR FOLLOWUP: Gram-negative bacteremia. INTERVAL HISTORY: The patient is currently afebrile. The patient is breathing comfortably. She is requiring low-dose pressors. Currently on Levophed and 1 rosetta to support blood pressure. No chest pain. No abdominal pain. No diarrhea. PHYSICAL EXAMINATION: Blood pressure 104/69 with a pulse of 80, temperature 98. She is 96% on room air. General description is a middle aged female up in the bed in no distress. Respiratory system: Unlabored breathing with decreased breath sounds in the bases. No wheeze. Heart is S1, S2. Regular rate and rhythm. Abdomen soft. No tenderness. LABS: Hemoglobin 8.1, white count of 8.5, BUN of 21, creatinine 0.80. Urine showing gram- negative blood culture with Providencia. DIAGNOSTIC IMPRESSION AND PLAN: Patient with evidence of Providencia bacteremia with concern for possible dialysis catheter associated urinary tract infection less likely and this patient hardly makes any urine, though urine is currently showing gram-negative bacilli for the same pathogen that could be the source. The patient is currently covered with cefepime to continue for now while monitoring clinical course closely. Continue supportive care. MMODL / IJN: [id number] /
--- NOTE | 2018-09-08 20:45 | P.PN ---
Subjective Progress Note Date: 09/08/18 Principal diagnosis: Amyloidisis and Lamda FLC Myeloma Objective - Vital Signs Vital signs: Vital Signs Temp 97.4 F L 09/08/18 10:56 Pulse 77 09/08/18 13:30 Resp 11 L 09/08/18 13:30 BP 112/65 09/08/18 13:30 Pulse Ox 96 09/08/18 13:30 Intake & Output 09/07/18 09/08/18 09/08/18 18:59 06:59 18:59 Intake Total 1067.585 413.087 290 Output Total 200 0 2700 Balance 867.585 413.087 -2410 Weight 81.8 kg 83 kg Intake: IV 240 370 290 0.9 240 220 140 Albumin Human 25% 50 ml 50 50 In Empty Bag 1 bag @ 50 mls/hr IVPB Q12H [facility] Rx#: [id number] Cefepime 2 gm In Sodium 100 100 Chloride 0.9% 100 ml @ 200 mls/hr IVPB DAILY [facility] Rx#:[id number] Intake, IV Titration 177.585 43.087 Amount Albumin Human 25% 50 ml 50 In Empty Bag 1 bag @ 50 mls/hr IVPB Q12HR [facility] Rx# :[id number] Norepinephrine 4 mg In 27.585 43.087 Sodium Chloride 0.9% 250 ml @ 0.05 MCG/KG/MIN 15. 554 mls/hr IV .[id number] [facility] Rx#:[id number] cefTRIAXone 1 gm In 100 Sodium Chloride 0.9% 50 ml @ 100 mls/hr IVPB Q24HR [facility] Rx#:[id number] Oral 650 Output: Urine 50 0 Stool 150 Hemodialysis 2700 Other: # Bowel Movements 1 1 - Exam Gen: Alert and oriented Head: NCNT Neck: Supple Lungs: CTA Bilateral Abdomen S?ND EXT 3+ BLE Edema Neuro - Non focal - Labs CBC & Chem 7: 09/08/18 05:52 09/08/18 05:52 Labs: Abnormal Lab Results - Last 24 Hours (Table) 09/08/18 09/08/18 Range/Units 05:52 05:52 RBC 2.73 L (3.80-5.40) m/uL Hgb 8.2 L (11.4-16.0) gm/dL Hct 25.4 L (34.0-46.0) % RDW 18.5 H (11.5-15.5) % Plt Count 106 L (150-450) k/uL Sodium 132 L (137-145) mmol/L BUN 51 H (7-17) mg/dL Creatinine 2.80 H (0.52-1.04) mg/dL Glucose 124 H (74-99) mg/dL Calcium 7.9 L (8.4-10.2) mg/dL Microbiology - Last 24 Hours (Table) 09/07/18 11:15 Blood Culture - Preliminary Blood No Growth after 24 hours 09/07/18 11:35 Urine Culture - Preliminary Urine,Voided Gram Neg Bacilli 09/06/18 11:50 Blood Culture Gram Stain - Final Blood Blood Culture - Final Providencia rettgeri Assessment and Plan Plan: Bacteremia Gram Negative Bacilli UTI: - Infectious Disease is following - COntinue antibiotic coverage Multiple myeloma - Diagnosis and treatment as outlined in HPI. Was due to complete cycle 1 of CyBorD this Tuesday, this will be held until infection cleared. - Light Chain Myeloma awaitng follow-up labs, will recheck while inpatient - Response appears noted in urine, although will need to compare with bloodwork with recent Dialysis Cardiac Amyloidosis Acute Renal Failure: - Requiring Diaylysis - Nephrology Following. Syncopal Episode: - Likely related to Bacteremia and hypotension Hypotension: - Multifactorial; including bacteremia and component of adrenal insufficiency Renal Amyloidosis Nephrology consulted Plan: - Hold Treatment at this time and continue treatment of infection - Once cleared will restart - Continue care ICU Physician Attest: I have completed the full history and physicial and developed the above impression and plan, agree with above dictation, dictated as a scribe.
[2018-09-09] MEDS: FUROSEMIDE 10 MG/ML 10 ML VIAL IV SCH (00:56)
[2018-09-09 06:00] LABS: Anisocytosis Slight; Basophils % (A) 0 %; Eosinophils % (A) 0 %; HCT 25.4 % (34.0-46.0); HGB 7.9 gm/dL (11.4-16.0); Hypochromasia Marked; Lymphocytes # (A) 0.1 k/uL (1.0-4.8); Lymphocytes % (A) 1 %; MCH 29.8 pg (25.0-35.0); MCHC 30.9 g/dL (31.0-37.0); MCV 96.3 fL (80.0-100.0); Macrocytosis Slight; Mean Platelet Volume 10.3; Monocytes # (A) 0.3 k/uL (0-1.0); Monocytes % (A) 3 %; Neutrophils # (A) 9.3 k/uL (1.3-7.7); Neutrophils % (A) 94 %; RBC 2.64 m/uL (3.80-5.40); RDW 19.6 % (11.5-15.5); WBC 9.9 k/uL (3.8-10.6)
[2018-09-09 06:13] LABS: Anisocytosis (M) Present; Crenated RBC Present; Ovalocytes Present; Platelet Count 80 k/uL (150-450); Poikilocytosis (M) Present
--- NOTE | 2018-09-09 06:20 | XR ---
EXAMINATION TYPE: XR chest 1V portable DATE OF EXAM: 09/09/2018 HISTORY: shortness of breath. REFERENCE: Previous study dated 09/08/2018. FINDINGS: A large-bore, double-lumen catheter remains in place via a right internal jugular approach. Its tip is at the cavoatrial junction. There is improved aeration at the right lung base. There continues be bibasilar airspace disease, eit her representing atelectasis or pneumonia. There is mild vascular congestion. There is some interstit ial change present greater on the right than the left. There are bilateral effusions. IMPRESSION: MILD CHANGES OF CONGESTIVE HEART FAILURE.
[2018-09-09 06:33] LABS: Albumin 2.6 g/dL (3.5-5.0); Calcium 8.1 mg/dL (8.4-10.2); Potassium 3.8 mmol/L (3.5-5.1); Total Bilirubin 3.4 mg/dL (0.2-1.3); Total Protein 4.4 g/dL (6.3-8.2)
[2018-09-09] MEDS: PANTOPRAZOLE 40 MG TABLET PO SCH (06:46)
[2018-09-09] MEDS: LEVOTHYROXINE 50 MCG TAB PO SCH (06:46)
[2018-09-09] MEDS: MIDODRINE 5 MG TAB PO SCH ×3 (06:46→17:07)
[2018-09-09] MEDS: SEVELAMER 800 MG TAB PO SCH ×3 (06:57→17:07)
[2018-09-09] MEDS: NOREPINEPHRINE 4 MG in SODIUM CHLORIDE 0.9% 250 ML IV SCH ×2 (08:17→12:32)
[2018-09-09] MEDS: HYDROCORTISONE SUCCINATE 100 MG/2 ML VIAL IV SCH ×3 (08:18→23:36)
[2018-09-09] MEDS: ASPIRIN 81 MG PO SCH (08:18)
[2018-09-09] MEDS: ALLOPURINOL 100 MG TAB PO SCH (08:18)
[2018-09-09] MEDS: CEFEPIME 2 GM in SODIUM CHLORIDE 0.9% 100 ML IVPB SCH (08:19)
--- NOTE | 2018-09-09 08:38 | P.PN ---
Subjective Progress Note Date: 09/09/18 Seen and examined for the follow-up of acute kidney injury. Currently dialysis dependent from myeloma. Last dialysis Tuesday. On low-dose levo fed. No nausea vomiting or diarrhea. Objective - Vital Signs Vital signs: Vital Signs Temp 98.7 F 09/09/18 04:00 Pulse 75 09/09/18 07:00 Resp 12 09/09/18 07:00 BP 86/53 09/09/18 07:00 Pulse Ox 97 09/09/18 07:00 Intake & Output 09/08/18 09/09/18 09/09/18 18:59 06:59 18:59 Intake Total 910 1200 236 Output Total 2700 Balance -1790 1200 236 Weight 85.3 kg Intake: IV 410 500 0.9 260 450 Albumin Human 25% 50 ml 50 50 In Empty Bag 1 bag @ 50 mls/hr IVPB Q12H [facility] Rx#: [id number] Cefepime 2 gm In Sodium 100 Chloride 0.9% 100 ml @ 200 mls/hr IVPB DAILY [facility] Rx#:[id number] Intake, IV Titration 0 Amount Norepinephrine 4 mg In 0 Sodium Chloride 0.9% 250 ml @ 0.05 MCG/KG/MIN 15. 554 mls/hr IV .[id number] [facility] Rx#:[id number] Oral 500 700 236 Output: Hemodialysis 2700 - Exam No acute distress S1-S2 heard Decreased breath sounds Right jugular permacath Edema - Labs CBC & Chem 7: 09/09/18 05:12 09/09/18 05:12 Labs: Abnormal Lab Results - Last 24 Hours (Table) 09/08/18 09/09/18 09/09/18 Range/Units 05:52 05:12 05:12 RBC 2.64 L (3.80-5.40) m/uL Hgb 7.9 L (11.4-16.0) gm/dL Hct 25.4 L (34.0-46.0) % MCHC 30.9 L (31.0-37.0) g/dL RDW 19.6 H (11.5-15.5) % Plt Count 80 L (150-450) k/uL Neutrophils # 9.3 H (1.3-7.7) k/uL Lymphocytes # 0.1 L (1.0-4.8) k/uL Sodium 133 L (137-145) mmol/L BUN 43 H (7-17) mg/dL Creatinine 2.36 H (0.52-1.04) mg/dL Glucose 114 H (74-99) mg/dL Calcium 8.1 L (8.4-10.2) mg/dL Total Bilirubin 3.4 H (0.2-1.3) mg/dL Alkaline Phosphatase 485 H (38-126) U/L Total Protein 4.4 L (6.3-8.2) g/dL Albumin 2.6 L (3.5-5.0) g/dL Vitamin B12 1124.0 H (200.0-944.0) pg/mL Microbiology - Last 24 Hours (Table) 09/07/18 11:15 Blood Culture - Preliminary Blood No Growth after 24 hours 09/07/18 11:35 Urine Culture - Preliminary Urine,Voided Gram Neg Bacilli 09/06/18 11:50 Blood Culture Gram Stain - Final Blood Blood Culture - Final Providencia rettgeri Assessment and Plan Assessment: #1 oliguric acute kidney injury secondary to AL-amyloidosis/ATN. #2 septic shock from E. coli septicemia. Source unclear. #3 CK D4 secondary to multiple myeloma with a baseline creatinine of 2.0 MG per DL. #4 syncope secondary to hypotension #5 anemia secondary to myeloma Plan: #1 antibiotics as per infectious disease. Currently on cefepime as per i nfectious disease. #2 hemodialysis Tuesday #3 wean off pressors. #4 CK D medications including Nephrocaps, Renvela and midodrine for hypotension #5 avoid nephrotoxic agents and hypotensive episodes.
--- NOTE | 2018-09-09 09:21 | P.PN ---
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 When EMS arrived to the home her blood pressure was low. On arrival to the ER was in the 60s and she received 2 L of IV fluids. Dr. Munguia was contacted who recommended treatment with Solu-Cortef and Midodrin. He recommended no more than 2 L of IV fluids and initiation of vasopressors should she remain hypotensive. Dr. Hernandez was contacted. Initial laboratory analysis was consistent with her known anemia, thrombocytopenia, and chronic kidney disease. She is known to have a slightly elevated bilirubin at 1.9. AST and ALT within normal limits. BNP was elevated at 150,000. Chest x-ray showed right basilar persistent infiltrate. Patient had recently been hospitalized that,from 08/09 through 09/02 for multiple myeloma related kidney dysfunction and infiltrative cardiomyopathy. She was initiated on systemic chemotherapy as mentioned above and dialysis. She did not get plasma pheresis during the hospital stay. She was also diagnosed with C. diff infection and reported completion of 10 days of oral vancomycin therapy. Arrangements were made for admission to ICU with barrie nned vasopressors and HD. She was started on Vanco oral while C diff testing pending. She underwent HD on 09/06 with the removal of 2L of fluid. She did require levophed support. C diff was negative and vanco was stopped. She was found to have gram negative bacteremia and was started on rocephin. ID was consulted and she was transitioned to cefepime. Diuresis was attempted with lasix and albumin, she did not produce urine. She again had HD on 09/08 with removal of 2.7L of fluid. Blood culture found to be providencia and urine had enterobacter however suspect these are actually the same bacteria as resistance profile is identical and they are from the same family. She continued to require levo throughout the day on 09/08. Patient seen and examined at bedside. She is feeling well today. She denies any chest pain. Shortness of breath at baseline. Still having frequent stools. Has questions about 1 receiving her next dialysis initiation of a fistula placed. We discussed the fact that she will need treatment for her bacteremia prior to any such consideration and that this needs to be discussed with nephrology. Objective - Vital Signs Vital signs: Vital Signs Temp 98.7 F 09/09/18 04:00 Pulse 75 09/09/18 07:00 Resp 12 09/09/18 07:00 BP 86/53 09/09/18 07:00 Pulse Ox 97 09/09/18 07:00 Intake & Output 09/08/18 09/09/18 09/09/18 18:59 06:59 18:59 Intake Total 910 1200 236 Output Total 2700 Balance -1790 1200 236 Weight 85.3 kg Intake: IV 410 500 0.9 260 450 Albumin Human 25% 50 ml 50 50 In Empty Bag 1 bag @ 50 mls/hr IVPB Q12H [facility] Rx#: [id number] Cefepime 2 gm In Sodium 100 Chloride 0.9% 100 ml @ 200 mls/hr IVPB DAILY [facility] Rx#:[id number] Intake, IV Titration 0 Amount Norepinephrine 4 mg In 0 Sodium Chloride 0.9% 250 ml @ 0.05 MCG/KG/MIN 15. 554 mls/hr IV .[id number] [facility] Rx#:[id number] Oral 500 700 236 Output: Hemodialysis 2700 - Exam General: Ill appearing, no distress, appears at stated age Derm: warm, weeping Head: atraumatic, normocephalic, symmetric Eyes: EOMI, no lid lag, anicteric sclera Mouth: no lip lesion, mucus membranes moist Cardiovascular: S1S2 reg, no murmur, positive posterior tibial pulse bilateral, Lungs: Crackles bilateral bases, no rhonchi, no rales , no accessory muscle use Abdominal: soft, nontender to palpation, no guarding, no appreciable organomegaly Ext: no gross muscle atrophy, diffuse anasarca, no contractures Neuro: CN II-XI grossly intact, no focal neuro deficits Psych: Alert, oriented, appropriate affect - Labs CBC & Chem 7: 09/09/18 05:12 09/09/18 05:12 Labs: Abnormal Lab Results - Last 24 Hours (Table) 09/08/18 09/09/18 09/09/18 Range/Units 05:52 05:12 05:12 RBC 2.64 L (3.80-5.40) m/uL Hgb 7.9 L (11.4-16.0) gm/dL Hct 25.4 L (34.0-46.0) % MCHC 30.9 L (31.0-37.0) g/dL RDW 19.6 H (11.5-15.5) % Plt Count 80 L (150-450) k/uL Neutrophils # 9.3 H (1.3-7.7) k/uL Lymphocytes # 0.1 L (1.0-4.8) k/uL Sodium 133 L (137-145) mmol/L BUN 43 H (7-17) mg/dL Creatinine 2.36 H (0.52-1.04) mg/dL Glucose 114 H (74-99) mg/dL Calcium 8.1 L (8.4-10.2) mg/dL Total Bilirubin 3.4 H (0.2-1.3) mg/dL Alkaline Phosphatase 485 H (38-126) U/L Total Protein 4.4 L (6.3-8.2) g/dL Albumin 2.6 L (3.5-5.0) g/dL Vitamin B12 1124.0 H (200.0-944.0) pg/mL Microbiology - Last 24 Hours (Table) 09/07/18 11:35 Urine Culture - Final Urine,Voided Enterobacter aerogenes 09/07/18 11:15 Blood Culture - Preliminary Blood No Growth after 24 hours 09/06/18 11:50 Blood Culture Gram Stain - Final Blood Blood Culture - Final Providencia rettgeri Assessment and Plan Assessment: Presyncope due to hypotension, chronic on top of bacteremia - not responsive to IVF - continue with stress dose steroids, Cortef 100mg TID - Midodrine TID - levophed to support blood pressures - follow blood pressure - critical care recs, echo without significant pleural effusion - TSH 9 and down trending with levothyroxine recently started, levothyroxine increased on 09/08 Fluid overload due to CKD that is HD dependent and secondary to renal amylodosis and acute exacerbation of restrictive cardiomyopathy EF 50-55% - HD 09/06 and 09/08, not responsive to lasix - nephrology recs appreciated: next HD tuesday - Strict I and O daily weight - tele Providenica bacteremia with enterobacter UTI - cefepime - Blood culture found to be providencia and urine had enterobacter however suspect these are actually the same bacteria as resistance profile is identical and they are from the same family - ID recs appreciated - repeat blood culture pending Multiple myeloma - Oncology recs - On Bortezomib, cyclophosphamide, and dexamethasone Anemia and thrombocytopenia - likely related to chemotherapy - Iron studies last month consistent with anemia of chronic disease - B12 normal and folate pending Diarrhea. likely chemo induced - C diff negative - prn imodium Hyponatremia, chronic - repeat in AM - at baseline DVT prophylaxis: heparin Discussed with: patient, , Dr. Byers, and nursing Anticipated discharge date: 3-[address]: home A total of 35 minutes was spent on the care of this complex patient more than 50% of the time was spent in counseling and care coordination.
[2018-09-09] MEDS: FOLIC ACID-VIT B COMPLEX-VIT C 1 CAP PO SCH (12:30)
--- NOTE | 2018-09-09 13:41 | P.PN ---
Subjective Progress Note Date: 09/09/18 58-year-old female patient with known history of multiple myeloma and amyloidosis and End stage renal disease is currently on hemodialysis. The patient also has infiltrative cardiomyopathy with diastolic dysfunction and a preserved LV function. The patient is on hemodialysis for the time being 3 times a week and has last hemodialysis session was 2 days ago. The patient came into the emergency department after being discharged from [facility] approximately 5 days ago. The patient wasn't [facility] meeting with complications of myeloma and renal failure between 08/09/2018 and 09/02/2018. During this time the patient was started on systemic chemotherapy with a combination of cyclophosphamide, Velcade and Decadron. She opted to continue her treatment locally with Dr. Hernandez. Patient came into the ED because of generalized weakness and hypotension and near syncope. As mentioned her last chemo was 5 days ago. She was getting progressively more weak. Acting out of ordinary last night and somewhat confused. She was having lightheadedness and some degree of shortness of breath and in his edema all over especially in lower extremities. The patient was also having diarrhea over the past 2-3 days. No chest pain. Initial systolic blood pressure was in the low 80s. Upon arrival to the emergency department the patient was afebrile. The systolic blood pressure was recorded to be as low as 70 with diastolic of 36. The patient was given a total of 2 L of IV fluid. The patient following that improved. Nevertheless, based on the extensive surgery. Volume overload, total decided not to give her any further fluids. Nephrology was involved in the case and the patient will be started on hemodialysis. Meanwhile, it was advised for this patient to moved to the ICU for any pressor treatment if needed should he develop any hypotension. Patient's white cell count is at 5.5. The patient seemed was at 7.4. Renal function shows a BUN of 51 with a creatinine of 2.7. The troponin was not measures. Lactic acid level is at 2.0. ProBNP level is 150,000. The chest x-ray shows chronic right basilar infiltration/atelectasis. Note that this patient typically runs a low blood pressure. She is on midodrine outpatient basis 10 mg by mouth 3 times a day. On 09/07/2018 the patient is awake and alert. She has no specific complaints. She has still increased edema lower extremities. The blood cultures showing gram-negative rods and final cultures sensitivities are still pending. The patient underwent hemodialysis yesterday and during the last as the patient required pressors in the form of norepinephrine infusion which is running at a very low-dose for now. Her systolic blood pressures are low 80s. She is asymptomatic with her low blood pressure. Urine output is almost not present. The patient was seen by nephrology. IV Lasix was given to generate some urine output. The patient was also placed on IV antibiotics and currently she is on IV Rocephin. She is also on midodrine 10 mg by mouth 3 times a day. Chest x- ray shows some increased vascular congestion and right-sided pleural effusion more than left. No altered mentation. No headache. No chest pain. No other significant events overnight. The diarrhea has subsided. On 09/08/2018 I'm seeing this patient for a follow-up. The patient is still having issues with blood pressure. She is on low-dose levo fed. Blood culture came back positive for prevention and the suspected source is the urinary tract. The patient is currently on IV cefepime. The patient underwent hemodialysis today. No major issues with blood pressure hypotension. The dialysis catheter site is dry clean and intact. Cultures of been sent from the catheter and the urine. The patient has no new complaints. She is quite weak. She is lethargic. She has increased lower extremities edema. She is on IV Lasix. Her urine output is minimal. No nausea. No vomiting. No abdominal pain. Oral intake is diminished and the patient is not taking her full dietary requirements. Seconds at 8.5. Rest of the blood work and electrodes are all within normal limits. TSH was at 9.9 and the Synthroid dose has been modified. On 09/09/2018 the patient seems to be much improved compared to yesterday. Her last hemodialysis session was yesterday and this morning she looks to be much more alert and awake and interactive. No fever or chills. She is still on 1 g per minute of norepinephrine infusion for blood pressure control. The patient is on IV cefepime. The blood culture was positive for procidentia and the urine culture was positive for Enterobacter. The cultures obtained from the catheter is been negative. The patient is doing well. No nausea. No vomiting. She has developed increased edema in the upper and lower extremity which is chronic. She is receiving still IV Lasix. She was able to ambulate in the hallway. She is on stress dose hydrocortisone. No other complaints or any other issues over the past 24 hours. No altered mentation. No nausea. No vomiting. No abdominal pain. Objective - Vital Signs Vital signs: Vital Signs Temp 97.7 F 09/09/18 08:00 Pulse 74 09/09/18 11:00 Resp 15 09/09/18 11:00 BP 101/57 09/09/18 11:00 Pulse Ox 96 09/09/18 11:00 Intake & Output 09/08/18 09/09/18 09/09/18 18:59 06:59 18:59 Intake Total 910 1200 469.222 Output Total 2700 0 Balance -1790 1200 469.222 Weight 85.3 kg Intake: IV 410 500 220 0.9 260 450 120 Albumin Human 25% 50 ml 50 50 In Empty Bag 1 bag @ 50 mls/hr IVPB Q12H [facility] Rx#: [id number] Cefepime 2 gm In Sodium 100 100 Chloride 0.9% 100 ml @ 200 mls/hr IVPB DAILY [facility] Rx#:[id number] Intake, IV Titration 13.222 Amount Norepinephrine 4 mg In 13.222 Sodium Chloride 0.9% 250 ml @ 0.05 MCG/KG/MIN 15. 554 mls/hr IV .[id number] [facility] Rx#:[id number] Oral 500 700 236 Output: Urine 0 Hemodialysis 2700 - Exam General: Chronically ill-appearing, no distress, appears at stated age Derm: warm, dry Head exam was generally normal. There was no scleral icterus or corneal arcus. Mucous membranes were moist. Neck was supple and without jugular venous distension, thyromegaly, or carotid bruits. Carotids were easily palpable bilaterally. There was no adenopathy. Eyes: EOMI, no lid lag, anicteric sclera Mouth: no lip lesion, mucus membranes moist Cardiovascular: S1S2 reg, no murmur, positive posterior tibial pulse bilateral, Lungs: rhonchi bilateral bases, no rhonchi, no rales , no accessory muscle use Abdominal: soft, nontender to palpation, no guarding, no appreciable organomegaly Ext: no gross muscle atrophy,3+ edema bilateral lower extremities, no contractures Neuro: CN II-XI grossly intact, no focal neuro deficits Psych: Alert, oriented, upset and the patient feels increasingly depressed and anxious Examination of the skin revealed no evidence of significant rashes, suspicious appearing nevi or other concerning lesions. The patient has multiple areas of ecchymosis on her skin related to previous episodes especially over the anterior abdominal wall. - Labs CBC & Chem 7: 09/09/18 05:12 09/09/18 05:12 Labs: Abnormal Lab Results - Last 24 Hours (Table) 09/08/18 09/09/18 09/09/18 Range/Units 05:52 05:12 05:12 RBC 2.64 L (3.80-5.40) m/uL Hgb 7.9 L (11.4-16.0) gm/dL Hct 25.4 L (34.0-46.0) % MCHC 30.9 L (31.0-37.0) g/dL RDW 19.6 H (11.5-15.5) % Plt Count 80 L (150-450) k/uL Neutrophils # 9.3 H (1.3-7.7) k/uL Lymphocytes # 0.1 L (1.0-4.8) k/uL Sodium 133 L (137-145) mmol/L BUN 43 H (7-17) mg/dL Creatinine 2.36 H (0.52-1.04) mg/dL Glucose 114 H (74-99) mg/dL Calcium 8.1 L (8.4-10.2) mg/dL Total Bilirubin 3.4 H (0.2-1.3) mg/dL Alkaline Phosphatase 485 H (38-126) U/L Total Protein 4.4 L (6.3-8.2) g/dL Albumin 2.6 L (3.5-5.0) g/dL Vitamin B12 1124.0 H (200.0-944.0) pg/mL Microbiology - Last 24 Hours (Table) 09/08/18 07:45 Blood Culture - Preliminary Blood No Growth after 24 hours 09/07/18 11:35 Urine Culture - Final Urine,Voided Enterobacter aerogenes 09/07/18 11:15 Blood Culture - Preliminary Blood No Growth after 24 hours 09/06/18 11:50 Blood Culture Gram Stain - Final Blood Blood Culture - Final Providencia rettgeri Assessment and Plan Plan: 1 hypotension , which is essentially multifactorial. The patient runs chronically low blood pressure due to low vascular tone and neuropathy and she has been maintained on midodrine on outpatient basis. Nevertheless, there has been further interval drop in the blood pressure due to hypovolemia and bacteremia with gram-negative bacteria. The cultures of been showing probably dementia in the blood and furthermore the patient was found to have Enterobacter in the urine. Currently she is on IV cefepime. She is been very sensitive in terms of her blood pressure control and she is still requiring a low dose of norepinephrine infusion which is currently running at 1 g per minute. She seems to be dependent on that. 2 multiple myeloma started on systemic treatment with a combination of Cytoxan and Decadron and Velcade. The patient has light chain disease 3 myeloma kidney. The patient is currently dialysis dependent and her renal failure is End stage requiring dialysis. Her last dialysis was around 2 days ago and the patient is going to undergo another session of dialysis today. 4 diastolic heart failure/infiltrative cardiomyopathy probably due to myeloma/amyloidosis disease 5 small to moderate pericardial effusion, please refer to the most is the echocardiogram that showed infiltrative heart disease secondary to amyloidosis and concentric LVH with ejection fraction of 55-60% and moderate to severe mitral regurgitation 6 diarrhea, rule out C. diff colitis, subsided and stool evaluation for C. diff was not done. 7 massive anasarca and volume overload with extensive lower extremity edema 8 chronic hypertension 9 chronic anxiety/depression 10 chronic anemia 11 hypothyroidism currently on Synthroid, the TSH remains low and the free T4 is low normal and will increase the thyroid hormone replacement dose 12 hyperlipidemia Plan Continue IV cefepime. Wean pressors if possible. No hemodialysis for today. Continue same antibiotic coverage. Awaiting final blood cultures. Echo was noted. This continued IV Lasix. Continue status post hydrocortisone. Keep in the ICU as long as the patient is still's pressor dependent.
[2018-09-09] MEDS: LOPERAMIDE 2 MG CAP PO PRN ×2 (13:50→20:27)
--- NOTE | 2018-09-09 17:05 | P.PN ---
<Liza Espino - Last Filed: 09/09/18 17:06> Subjective Progress Note Date: 09/09/18 Principal diagnosis: Amyloidisis and Lamda FLC Myeloma Objective - Vital Signs Vital signs: Vital Signs Temp 97.9 F 09/09/18 12:00 Pulse 77 09/09/18 14:15 Resp 15 09/09/18 14:15 BP 97/61 09/09/18 14:15 Pulse Ox 96 09/09/18 14:15 Intake & Output 09/08/18 09/09/18 09/09/18 18:59 06:59 18:59 Intake Total 910 1200 534.044 Output Total 2700 0 Balance -1790 1200 534.044 Weight 85.3 kg Intake: IV 410 500 280 0.9 260 450 180 Albumin Human 25% 50 ml 50 50 In Empty Bag 1 bag @ 50 mls/hr IVPB Q12H [facility] Rx#: [id number] Cefepime 2 gm In Sodium 100 100 Chloride 0.9% 100 ml @ 200 mls/hr IVPB DAILY [facility] Rx#:[id number] Intake, IV Titration 18.044 Amount Norepinephrine 4 mg In 18.044 Sodium Chloride 0.9% 250 ml @ 0.05 MCG/KG/MIN 15. 554 mls/hr IV .[id number] [facility] Rx#:[id number] Oral 500 700 236 Output: Urine 0 Hemodialysis 2700 - Exam Gen: Alert and oriented Head: NCNT Neck: Supple Lungs: CTA Bilateral Abdomen S?ND EXT 3+ BLE Edema Neuro - Non focal - Labs CBC & Chem 7: 09/09/18 05:12 09/09/18 05:12 Labs: Abnormal Lab Results - Last 24 Hours (Table) 09/08/18 09/09/18 09/09/18 Range/Units 05:52 05:12 05:12 RBC 2.64 L (3.80-5.40) m/uL Hgb 7.9 L (11.4-16.0) gm/dL Hct 25.4 L (34.0-46.0) % MCHC 30.9 L (31.0-37.0) g/dL RDW 19.6 H (11.5-15.5) % Plt Count 80 L (150-450) k/uL Neutrophils # 9.3 H (1.3-7.7) k/uL Lymphocytes # 0.1 L (1.0-4.8) k/uL Sodium 133 L (137-145) mmol/L BUN 43 H (7-17) mg/dL Creatinine 2.36 H (0.52-1.04) mg/dL Glucose 114 H (74-99) mg/dL Calcium 8.1 L (8.4-10.2) mg/dL Total Bilirubin 3.4 H (0.2-1.3) mg/dL Alkaline Phosphatase 485 H (38-126) U/L Total Protein 4.4 L (6.3-8.2) g/dL Albumin 2.6 L (3.5-5.0) g/dL Vitamin B12 1124.0 H (200.0-944.0) pg/mL Microbiology - Last 24 Hours (Table) 09/07/18 11:15 Blood Culture - Preliminary Blood No Growth after 48 hours 09/08/18 07:45 Blood Culture - Preliminary Blood No Growth after 24 hours 09/07/18 11:35 Urine Culture - Final Urine,Voided Enterobacter aerogenes Assessment and Plan Plan: Bacteremia Gram Negative Bacilli UTI: - Infectious Disease is following - COntinue antibiotic coverage Multiple myeloma - Diagnosis and treatment as outlined in HPI. Was due to complete cycle 1 of CyBorD this Tuesday, this will be held until infection cleared. - Light Chain Myeloma awaitng follow-up labs, will recheck while inpatient - Response appears noted in urine, although will need to compare with bloodwork with recent Dialysis Cardiac Amyloidosis Acute Renal Failure: - Requiring Diaylysis - Nephrology Following. Syncopal Episode: - Likely related to Bacteremia and hypotension Hypotension: - Multifactorial; iAmloid of Kidneys, Component bacteremia - Adrenal Insuf ruled out Renal Amyloidosis Nephrology consulted Hyperbilirubinemia: - Likely secondary to Hypotension and medications, shock liver Thrombocytopenia: - Secondary to recent chemotherapu Plan: - Hold Treatment at this time and continue treatment of infection - Continue intensive supportive care At this time. - Once cleared will restart - Continue care ICU Time with Patient: Greater than 30 <Lexie Silverman - Last Filed: 10/01/18 13:01> Subjective seen and examined agree with the note by Liza Objective - Vital Signs Vital signs: Vital Signs Temp 97.9 F 09/18/18 12:41 Pulse 98 09/18/18 12:41 Resp 18 09/18/18 12:41 BP 127/61 09/18/18 12:41 Pulse Ox 95 09/18/18 12:27 - Labs CBC & Chem 7: 09/18/18 08:00 09/18/18 08:00
[2018-09-09 18:07] LABS: D-Dimer 4.12 mg/L FEU (<0.60)
[2018-09-09 23:21] LABS: Protein, Total 3.9 g/dL (6.2-8.2)
[2018-09-10 06:13] LABS: Anisocytosis Slight; Basophils % (A) 0 %; Eosinophils % (A) 0 %; HCT 23.7 % (34.0-46.0); HGB 7.3 gm/dL (11.4-16.0); Hypochromasia Slight; Lymphocytes # (A) 0.1 k/uL (1.0-4.8); Lymphocytes % (A) 2 %; MCH 28.4 pg (25.0-35.0); MCHC 30.8 g/dL (31.0-37.0); MCV 92.2 fL (80.0-100.0); Mean Platelet Volume 9.8; Monocytes # (A) 0.2 k/uL (0-1.0); Monocytes % (A) 5 %; Neutrophils # (A) 4.4 k/uL (1.3-7.7); Neutrophils % (A) 92 %; RBC 2.57 m/uL (3.80-5.40); RDW 18.5 % (11.5-15.5); WBC 4.7 k/uL (3.8-10.6)
[2018-09-10] MEDS: PANTOPRAZOLE 40 MG TABLET PO SCH (06:31)
[2018-09-10] MEDS: LEVOTHYROXINE 50 MCG TAB PO SCH (06:31)
[2018-09-10] MEDS: MIDODRINE 5 MG TAB PO SCH ×4 (06:31→17:27)
[2018-09-10 06:37] LABS: Albumin 2.5 g/dL (3.5-5.0); Calcium 8.3 mg/dL (8.4-10.2); Magnesium 2.3 mg/dL (1.6-2.3); Potassium 3.7 mmol/L (3.5-5.1); Total Bilirubin 2.2 mg/dL (0.2-1.3); Total Protein 4.4 g/dL (6.3-8.2)
[2018-09-10 06:41] LABS: Platelet Count 65 k/uL (150-450)
[2018-09-10] MEDS: SEVELAMER 800 MG TAB PO SCH ×3 (07:00→17:28)
--- NOTE | 2018-09-10 07:27 | XR ---
EXAMINATION TYPE: XR chest 1V portable DATE OF EXAM: 09/10/2018 HISTORY: SOB. REFERENCE: Previous study dated 09/09/2018. FINDINGS: There is a large-bore, double-lumen catheter in place via a right internal jugular approach . Its tip is within the right atrium. The heart is enlarged. There is improving interstitial change present bilaterally. There is a small r ight-sided effusion. IMPRESSION: IMPROVING CHANGES OF CONGESTIVE HEART FAILURE.
[2018-09-10] MEDS: NOREPINEPHRINE 4 MG in SODIUM CHLORIDE 0.9% 250 ML IV SCH (07:49)
[2018-09-10] MEDS: HYDROCORTISONE SUCCINATE 100 MG/2 ML VIAL IV SCH ×2 (07:50→15:33)
[2018-09-10] MEDS: FOLIC ACID-VIT B COMPLEX-VIT C 1 CAP PO SCH (07:51)
[2018-09-10] MEDS: CEFEPIME 2 GM in SODIUM CHLORIDE 0.9% 100 ML IVPB SCH (07:51)
[2018-09-10] MEDS: ASPIRIN 81 MG PO SCH (07:51)
[2018-09-10] MEDS: ALLOPURINOL 100 MG TAB PO SCH (07:51)
--- NOTE | 2018-09-10 09:22 | P.PN ---
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 When EMS arrived to the home her blood pressure was low. On arrival to the ER was in the 60s and she received 2 L of IV fluids. Dr. Munguia was contacted who recommended treatment with Solu-Cortef and Midodrin. He recommended no more than 2 L of IV fluids and initiation of vasopressors should she remain hypotensive. Dr. Hernandez was contacted. Initial laboratory analysis was consistent with her known anemia, thrombocytopenia, and chronic kidney disease. She is known to have a slightly elevated bilirubin at 1.9. AST and ALT within normal limits. BNP was elevated at 150,000. Chest x-ray showed right basilar persistent infiltrate. Patient had recently been hospitalized that,from 08/09 through 09/02 for multiple myeloma related kidney dysfunction and infiltrative cardiomyopathy. She was initiated on systemic chemotherapy as mentioned above and dialysis. She did not get plasma pheresis during the hospital stay. She was also diagnosed with C. diff infection and reported completion of 10 days of oral vancomycin therapy. Arrangements were made for admission to ICU with barrie nned vasopressors and HD. She was started on Vanco oral while C diff testing pending. She underwent HD on 09/06 with the removal of 2L of fluid. She did require levophed support. C diff was negative and vanco was stopped. She was found to have gram negative bacteremia and was started on rocephin. ID was consulted and she was transitioned to cefepime. Diuresis was attempted with lasix and albumin, she did not produce urine. She again had HD on 09/08 with removal of 2.7L of fluid. Blood culture found to be providencia and urine had enterobacter however suspect these are actually the same bacteria as resistance profile is identical and they are from the same family. She continued to require levo throughout the day on 09/08 and 09/09. She continues to be anuric and plan is for HD 09/11, 09/12, and 09/13. Patient seen and examined at bedside. Felling well today, no chest pain, no shortness of breath, still having frequent bowel movements. at bedside an updated on plan of care. Objective - Vital Signs Vital signs: Vital Signs Temp 97.6 F 09/10/18 04:00 Pulse 70 09/10/18 09:00 Resp 21 09/10/18 09:00 BP 71/34 09/10/18 09:00 Pulse Ox 97 09/10/18 09:00 Intake & Output 09/09/18 09/10/18 09/10/18 18:59 06:59 18:59 Intake Total 1184.044 590 0 Output Total 0 0 Balance 1184.044 590 0 Weight 86.8 kg Intake: IV 430 390 0.9 330 390 Cefepime 2 gm In Sodium 100 Chloride 0.9% 100 ml @ 200 mls/hr IVPB DAILY [facility] Rx#:[id number] Intake, IV Titration 18.044 0 Amount Norepinephrine 4 mg In 18.044 0 Sodium Chloride 0.9% 250 ml @ 0.05 MCG/KG/MIN 15. 554 mls/hr IV .[id number] [facility] Rx#:[id number] Oral 736 200 Output: Urine 0 0 - Exam General: Ill appearing, no distress, appears at stated age Derm: warm, weeping all 4 extremities Head: atraumatic, normocephalic, symmetric Eyes: EOMI, no lid lag, anicteric sclera Mouth: no lip lesion, mucus membranes moist Cardiovascular: S1S2 reg, no murmur, positive posterior tibial pulse bilateral, Lungs: Crackles bilateral bases, no rhonchi, no rales , no accessory muscle use Abdominal: soft, nontender to palpation, no guarding, no appreciable organomegaly Ext: no gross muscle atrophy, diffuse anasarca, no contractures Neuro: CN II-XI grossly intact, no focal neuro deficits Psych: Alert, oriented, appropriate affect - Labs CBC & Chem 7: 09/10/18 05:34 09/10/18 05:34 Labs: Abnormal Lab Results - Last 24 Hours (Table) 09/09/18 09/09/18 09/10/18 Range/Units 17:04 17:04 05:34 RBC 2.57 L (3.80-5.40) m/uL Hgb 7.3 L (11.4-16.0) gm/dL Hct 23.7 L (34.0-46.0) % MCHC 30.8 L (31.0-37.0) g/dL RDW 18.5 H (11.5-15.5) % Plt Count 65 L (150-450) k/uL Lymphocytes # 0.1 L (1.0-4.8) k/uL APTT 41.0 H (22.0-30.0) sec D-Dimer 4.12 H (<0.60) mg/L FEU Sodium (137-145) mmol/L Carbon Dioxide (22-30) mmol/L BUN (7-17) mg/dL Creatinine (0.52-1.04) mg/dL Glucose (74-99) mg/dL Calcium (8.4-10.2) mg/dL Total Bilirubin (0.2-1.3) mg/dL Alkaline Phosphatase (38-126) U/L Total Protein (6.3-8.2) g/dL Total Protein (PEP) 3.9 L (6.2-8.2) g/dL Albumin (3.5-5.0) g/dL 09/10/18 Range/Units 05:34 RBC (3.80-5.40) m/uL Hgb (11.4-16.0) gm/dL Hct (34.0-46.0) % MCHC (31.0-37.0) g/dL RDW (11.5-15.5) % Plt Count (150-450) k/uL Lymphocytes # (1.0-4.8) k/uL APTT (22.0-30.0) sec D-Dimer (<0.60) mg/L FEU Sodium 131 L (137-145) mmol/L Carbon Dioxide 21 L (22-30) mmol/L BUN 52 H (7-17) mg/dL Creatinine 3.00 H (0.52-1.04) mg/dL Glucose 126 H (74-99) mg/dL Calcium 8.3 L (8.4-10.2) mg/dL Total Bilirubin 2.2 H (0.2-1.3) mg/dL Alkaline Phosphatase 462 H (38-126) U/L Total Protein 4.4 L (6.3-8.2) g/dL Total Protein (PEP) (6.2-8.2) g/dL Albumin 2.5 L (3.5-5.0) g/dL Microbiology - Last 24 Hours (Table) 09/07/18 11:15 Blood Culture - Preliminary Blood No Growth after 48 hours 09/08/18 07:45 Blood Culture - Preliminary Blood No Growth after 24 hours 09/07/18 11:35 Urine Culture - Final Urine,Voided Enterobacter aerogenes Assessment and Plan Assessment: Presyncope due to hypotension, chronic on top of bacteremia - continue with stress dose steroids, Cortef 100mg TID - Midodrine TID - levophed to support blood pressures, goal systolic is 85 - follow blood pressure - critical care recs, echo without significant pleural effusion - TSH 9 and down trending with levothyroxine recently started, levothyroxine increased on 09/08 - was not responsive to IVF Fluid overload due to CKD that is HD dependent and secondary to renal amylodosis and acute exacerbation of restrictive cardiomyopathy EF 50-55% - HD 09/06 and 09/08, not responsive to lasix - nephrology recs appreciated: next HD tuesday - Strict I and O daily weight - tele Providenica bacteremia with enterobacter UTI - cefepime - Blood culture found to be providencia and urine had enterobacter however suspect these are actually the same bacteria as resistance profile is identical and they are from the same family - ID recs appreciated - repeat blood culture negative to date Thrombocytopenia - SCDs only - likely related to chemo/abx - follow CBC Multiple myeloma - Oncology recs - On Bortezomib, cyclophosphamide, and dexamethasone Anemia - likely related to chemotherapy - Iron studies last month consistent with anemia of chronic disease - B12 normal and folate pending Diarrhea. likely chemo induced - C diff negative - prn imodium Hyponatremia, chronic - repeat in AM - at baseline DVT prophylaxis: heparin Discussed with: patient, , Dr. Byers, and nursing Anticipated discharge date: 3-[address]: home A total of 35 minutes was spent on the care of this complex patient more than 50% of the time was spent in counseling and care coordination.
--- NOTE | 2018-09-10 09:29 | P.PN ---
Subjective Progress Note Date: 09/10/18 Seen and examined for the follow-up of acute kidney injury. 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 Last dialysis Tuesday. On low-dose levo fed as needed. No nausea vomiting or diarrhea. No urine output in the last 24 hours. Objective - Vital Signs Vital signs: Vital Signs Temp 97.6 F 09/10/18 04:00 Pulse 70 09/10/18 09:00 Resp 21 09/10/18 09:00 BP 71/34 09/10/18 09:00 Pulse Ox 97 09/10/18 09:00 Intake & Output 09/09/18 09/10/18 09/10/18 18:59 06:59 18:59 Intake Total 1184.044 590 0 Output Total 0 0 Balance 1184.044 590 0 Weight 86.8 kg Intake: IV 430 390 0.9 330 390 Cefepime 2 gm In Sodium 100 Chloride 0.9% 100 ml @ 200 mls/hr IVPB DAILY [facility] Rx#:[id number] Intake, IV Titration 18.044 0 Amount Norepinephrine 4 mg In 18.044 0 Sodium Chloride 0.9% 250 ml @ 0.05 MCG/KG/MIN 15. 554 mls/hr IV .[id number] [facility] Rx#:[id number] Oral 736 200 Output: Urine 0 0 - Exam No acute distress S1-S2 heard Decreased breath sounds Right jugular permacath Edema - Labs CBC & Chem 7: 09/10/18 05:34 09/10/18 05:34 Labs: Abnormal Lab Results - Last 24 Hours (Table) 09/09/18 09/09/18 09/10/18 Range/Units 17:04 17:04 05:34 RBC 2.57 L (3.80-5.40) m/uL Hgb 7.3 L (11.4-16.0) gm/dL Hct 23.7 L (34.0-46.0) % MCHC 30.8 L (31.0-37.0) g/dL RDW 18.5 H (11.5-15.5) % Plt Count 65 L (150-450) k/uL Lymphocytes # 0.1 L (1.0-4.8) k/uL APTT 41.0 H (22.0-30.0) sec D-Dimer 4.12 H (<0.60) mg/L FEU Sodium (137-145) mmol/L Carbon Dioxide (22-30) mmol/L BUN (7-17) mg/dL Creatinine (0.52-1.04) mg/dL Glucose (74-99) mg/dL Calcium (8.4-10.2) mg/dL Total Bilirubin (0.2-1.3) mg/dL Alkaline Phosphatase (38-126) U/L Total Protein (6.3-8.2) g/dL Total Protein (PEP) 3.9 L (6.2-8.2) g/dL Albumin (3.5-5.0) g/dL 09/10/18 Range/Units 05:34 RBC (3.80-5.40) m/uL Hgb (11.4-16.0) gm/dL Hct (34.0-46.0) % MCHC (31.0-37.0) g/dL RDW (11.5-15.5) % Plt Count (150-450) k/uL Lymphocytes # (1.0-4.8) k/uL APTT (22.0-30.0) sec D-Dimer (<0.60) mg/L FEU Sodium 131 L (137-145) mmol/L Carbon Dioxide 21 L (22-30) mmol/L BUN 52 H (7-17) mg/dL Creatinine 3.00 H (0.52-1.04) mg/dL Glucose 126 H (74-99) mg/dL Calcium 8.3 L (8.4-10.2) mg/dL Total Bilirubin 2.2 H (0.2-1.3) mg/dL Alkaline Phosphatase 462 H (38-126) U/L Total Protein 4.4 L (6.3-8.2) g/dL Total Protein (PEP) (6.2-8.2) g/dL Albumin 2.5 L (3.5-5.0) g/dL Microbiology - Last 24 Hours (Table) 09/07/18 11:15 Blood Culture - Preliminary Blood No Growth after 48 hours 09/08/18 07:45 Blood Culture - Preliminary Blood No Growth after 24 hours 09/07/18 11:35 Urine Culture - Final Urine,Voided Enterobacter aerogenes Assessment and Plan Assessment: #1 oliguric acute kidney injury secondary to AL-amyloidosis/ATN. #2 septic shock from E. coli septicemia. Source unclear. #3 CK D4 secondary to multiple myeloma (amyloidosis )with a baseline creatinine of 2.0 MG per DL. #4 syncope secondary to hypotension #5 anemia secondary to myeloma Plan: #1 antibiotics as per infectious disease. Currently on cefepime as per infectious disease. #2 hemodialysis Tuesday, plan for [id number]-[id number] 3 days from Tuesday to Tuesday. #3 wean off pressors. Increase midodrine to 15 mg 3 times a day. #4 CK D medications including Nephrocaps, Renvela #5 avoid nephrotoxic agents and hypotensive episodes. #6 add sodium bicarbonate for acidosis
--- NOTE | 2018-09-10 10:37 | P.PN ---
<Liza Espino - Last Filed: 09/10/18 12:27> Subjective Progress Note Date: 09/10/18 Principal diagnosis: Amyloidisis and Lamda FLC Myeloma Platlets and Hemoglobin decreasing, likely from chemo COntinue to attempt to get off pressors She walked in hallway yesterday. Objective - Vital Signs Vital signs: Vital Signs Temp 97.6 F 09/10/18 04:00 Pulse 70 09/10/18 09:00 Resp 21 09/10/18 09:00 BP 71/34 09/10/18 09:00 Pulse Ox 97 09/10/18 09:00 Intake & Output 09/09/18 09/10/18 09/10/18 18:59 06:59 18:59 Intake Total 1184.044 590 160 Output Total 0 0 Balance 1184.044 590 160 Weight 86.8 kg Intake: IV 430 390 160 0.9 330 390 60 Cefepime 2 gm In Sodium 100 100 Chloride 0.9% 100 ml @ 200 mls/hr IVPB DAILY [facility] Rx#:[id number] Intake, IV Titration 18.044 0 Amount Norepinephrine 4 mg In 18.044 0 Sodium Chloride 0.9% 250 ml @ 0.05 MCG/KG/MIN 15. 554 mls/hr IV .[id number] [facility] Rx#:[id number] Oral 736 200 Output: Urine 0 0 - Exam Gen: Alert and oriented Head: NCNT Neck: Supple Lungs: CTA Bilateral Abdomen S?ND EXT 3+ BLE Edema Neuro - Non focal - Labs CBC & Chem 7: 09/10/18 05:34 09/10/18 05:34 Labs: Abnormal Lab Results - Last 24 Hours (Table) 09/09/18 09/09/18 09/10/18 Range/Units 17:04 17:04 05:34 RBC 2.57 L (3.80-5.40) m/uL Hgb 7.3 L (11.4-16.0) gm/dL Hct 23.7 L (34.0-46.0) % MCHC 30.8 L (31.0-37.0) g/dL RDW 18.5 H (11.5-15.5) % Plt Count 65 L (150-450) k/uL Lymphocytes # 0.1 L (1.0-4.8) k/uL APTT 41.0 H (22.0-30.0) sec D-Dimer 4.12 H (<0.60) mg/L FEU Sodium (137-145) mmol/L Carbon Dioxide (22-30) mmol/L BUN (7-17) mg/dL Creatinine (0.52-1.04) mg/dL Glucose (74-99) mg/dL Calcium (8.4-10.2) mg/dL Total Bilirubin (0.2-1.3) mg/dL Alkaline Phosphatase (38-126) U/L Total Protein (6.3-8.2) g/dL Total Protein (PEP) 3.9 L (6.2-8.2) g/dL Albumin (3.5-5.0) g/dL 09/10/18 Range/Units 05:34 RBC (3.80-5.40) m/uL Hgb (11.4-16.0) gm/dL Hct (34.0-46.0) % MCHC (31.0-37.0) g/dL RDW (11.5-15.5) % Plt Count (150-450) k/uL Lymphocytes # (1.0-4.8) k/uL APTT (22.0-30.0) sec D-Dimer (<0.60) mg/L FEU Sodium 131 L (137-145) mmol/L Carbon Dioxide 21 L (22-30) mmol/L BUN 52 H (7-17) mg/dL Creatinine 3.00 H (0.52-1.04) mg/dL Glucose 126 H (74-99) mg/dL Calcium 8.3 L (8.4-10.2) mg/dL Total Bilirubin 2.2 H (0.2-1.3) mg/dL Alkaline Phosphatase 462 H (38-126) U/L Total Protein 4.4 L (6.3-8.2) g/dL Total Protein (PEP) (6.2-8.2) g/dL Albumin 2.5 L (3.5-5.0) g/dL Microbiology - Last 24 Hours (Table) 09/07/18 11:15 Blood Culture - Preliminary Blood No Growth after 48 hours 09/08/18 07:45 Blood Culture - Preliminary Blood No Growth after 24 hours 09/07/18 11:35 Urine Culture - Final Urine,Voided Enterobacter aerogenes Assessment and Plan Plan: Bacteremia Gram Negative Bacilli UTI: - Infectious Disease is following - COntinue antibiotic coverage Multiple myeloma - Diagnosis and treatment as outlined in HPI. Was due to complete cycle 1 of CyBorD this Tuesday, this will be held until infection cleared. - Light Chain Myeloma awaitng follow-up labs, will recheck while inpatient - Response appears noted in urine, although will need to compare with bloodwork with recent Dialysis Cardiac Amyloidosis Acute Renal Failure: - Requiring Diaylysis - Nephrology Following. Syncopal Episode: - Likely related to Bacteremia and hypotension Hypotension: - Multifactorial; iAmloid of Kidneys, Component bacteremia - Adrenal Insuf ruled out Renal Amyloidosis Nephrology consulted Hyperbilirubinemia: - Likely secondary to Hypotension and medications, shock liver Thrombocytopenia: - Secondary to recent chemotherapu Plan: - Hold Treatment at this time and continue treatment of infection - Continue intensive supportive care At this time. - Once cleared will restart - Continue care ICU - Likely transfuse in am with dialysis if hemoglobin under 7 - Physician Attestation: Dr. Silverman has seen and evaluated patient, he has completed the full history and physical and devloped the complete impression and plan. The above dictation has been scribed by Liza Espino [facility], <Lexie Silverman - Last Filed: 09/10/18 18:46> Objective - Vital Signs Vital signs: Vital Signs Temp 97.4 F L 09/10/18 16:00 Pulse 74 09/10/18 17:30 Resp 22 09/10/18 17:30 BP 109/62 09/10/18 17:30 Pulse Ox 97 09/10/18 17:30 Intake & Output 09/09/18 09/10/18 09/10/18 18:59 06:59 18:59 Intake Total 1184.044 590 400 Output Total 0 0 Balance 1184.044 590 400 Weight 86.8 kg Intake: IV 430 390 400 0.9 330 390 300 Cefepime 2 gm In Sodium 100 100 Chloride 0.9% 100 ml @ 200 mls/hr IVPB DAILY [facility] Rx#:[id number] Intake, IV Titration 18.044 0 Amount Norepinephrine 4 mg In 18.044 0 Sodium Chloride 0.9% 250 ml @ 0.05 MCG/KG/MIN 15. 554 mls/hr IV .[id number] [facility] Rx#:[id number] Oral 736 200 Output: Urine 0 0 Other: # Voids 0 # Bowel Movements 1 - Labs CBC & Chem 7: 09/10/18 05:34 09/10/18 05:34 Labs: Abnormal Lab Results - Last 24 Hours (Table) 09/09/18 09/10/18 09/10/18 Range/Units 17:04 05:34 05:34 RBC 2.57 L (3.80-5.40) m/uL Hgb 7.3 L (11.4-16.0) gm/dL Hct 23.7 L (34.0-46.0) % MCHC 30.8 L (31.0-37.0) g/dL RDW 18.5 H (11.5-15.5) % Plt Count 65 L (150-450) k/uL Lymphocytes # 0.1 L (1.0-4.8) k/uL Sodium 131 L (137-145) mmol/L Carbon Dioxide 21 L (22-30) mmol/L BUN 52 H (7-17) mg/dL Creatinine 3.00 H (0.52-1.04) mg/dL Glucose 126 H (74-99) mg/dL Calcium 8.3 L (8.4-10.2) mg/dL Total Bilirubin 2.2 H (0.2-1.3) mg/dL Alkaline Phosphatase 462 H (38-126) U/L Total Protein 4.4 L (6.3-8.2) g/dL Total Protein (PEP) 3.9 L (6.2-8.2) g/dL Albumin 2.5 L (3.5-5.0) g/dL Microbiology - Last 24 Hours (Table) 09/07/18 11:15 Blood Culture - Preliminary Blood No Growth after 72 hours 09/08/18 07:45 Blood Culture - Preliminary Blood No Growth after 48 hours Assessment and Plan Plan: The patient was seen and examined by me and discussed with nurse practitioner Liza, Agree with the assessment and plan formulated. Had an extensive discussion with the patient and . Free light chains pending. Will have to compare them with previous labs done at [facility]. The patient has seen Dr. Perry and Dr. Faye. Will subsequently need autologous stem cell. Lexie Silverman M.D.
[2018-09-10] MEDS: SODIUM BICARBONATE TAB 650 MG TAB PO SCH ×3 (12:22→20:34)
--- NOTE | 2018-09-10 12:59 | P.PN ---
Subjective Progress Note Date: 09/10/18 58-year-old female patient with known history of multiple myeloma and amyloidosis and End stage renal disease is currently on hemodialysis. The patient also has infiltrative cardiomyopathy with diastolic dysfunction and a preserved LV function. The patient is on hemodialysis for the time being 3 times a week and has last hemodialysis session was 2 days ago. The patient came into the emergency department after being discharged from [facility] approximately 5 days ago. The patient wasn't [facility] meeting with complications of myeloma and renal failure between 08/09/2018 and 09/02/2018. During this time the patient was started on systemic chemotherapy with a combination of cyclophosphamide, Velcade and Decadron. She opted to continue her treatment locally with Dr. Hernandez. Patient came into the ED because of generalized weakness and hypotension and near syncope. As mentioned her last chemo was 5 days ago. She was getting progressively more weak. Acting out of ordinary last night and somewhat confused. She was having lightheadedness and some degree of shortness of breath and in his edema all over especially in lower extremities. The patient was also having diarrhea over the past 2-3 days. No chest pain. Initial systolic blood pressure was in the low 80s. Upon arrival to the emergency department the patient was afebrile. The systolic blood pressure was recorded to be as low as 70 with diastolic of 36. The patient was given a total of 2 L of IV fluid. The patient following that improved. Nevertheless, based on the extensive surgery. Volume overload, total decided not to give her any further fluids. Nephrology was involved in the case and the patient will be started on hemodialysis. Meanwhile, it was advised for this patient to moved to the ICU for any pressor treatment if needed should he develop any hypotension. Patient's white cell count is at 5.5. The patient seemed was at 7.4. Renal function shows a BUN of 51 with a creatinine of 2.7. The troponin was not measures. Lactic acid level is at 2.0. ProBNP level is 150,000. The chest x-ray shows chronic right basilar infiltration/atelectasis. Note that this patient typically runs a low blood pressure. She is on midodrine outpatient basis 10 mg by mouth 3 times a day. On 09/07/2018 the patient is awake and alert. She has no specific complaints. She has still increased edema lower extremities. The blood cultures showing gram-negative rods and final cultures sensitivities are still pending. The patient underwent hemodialysis yesterday and during the last as the patient required pressors in the form of norepinephrine infusion which is running at a very low-dose for now. Her systolic blood pressures are low 80s. She is asymptomatic with her low blood pressure. Urine output is almost not present. The patient was seen by nephrology. IV Lasix was given to generate some urine output. The patient was also placed on IV antibiotics and currently she is on IV Rocephin. She is also on midodrine 10 mg by mouth 3 times a day. Chest x- ray shows some increased vascular congestion and right-sided pleural effusion more than left. No altered mentation. No headache. No chest pain. No other significant events overnight. The diarrhea has subsided. On 09/08/2018 I'm seeing this patient for a follow-up. The patient is still having issues with blood pressure. She is on low-dose levo fed. Blood culture came back positive for prevention and the suspected source is the urinary tract. The patient is currently on IV cefepime. The patient underwent hemodialysis today. No major issues with blood pressure hypotension. The dialysis catheter site is dry clean and intact. Cultures of been sent from the catheter and the urine. The patient has no new complaints. She is quite weak. She is lethargic. She has increased lower extremities edema. She is on IV Lasix. Her urine output is minimal. No nausea. No vomiting. No abdominal pain. Oral intake is diminished and the patient is not taking her full dietary requirements. Seconds at 8.5. Rest of the blood work and electrodes are all within normal limits. TSH was at 9.9 and the Synthroid dose has been modified. On 09/09/2018 the patient seems to be much improved compared to yesterday. Her last hemodialysis session was yesterday and this morning she looks to be much more alert and awake and interactive. No fever or chills. She is still on 1 g per minute of norepinephrine infusion for blood pressure control. The patient is on IV cefepime. The blood culture was positive for procidentia and the urine culture was positive for Enterobacter. The cultures obtained from the catheter is been negative. The patient is doing well. No nausea. No vomiting. She has developed increased edema in the upper and lower extremity which is chronic. She is receiving still IV Lasix. She was able to ambulate in the hallway. She is on stress dose hydrocortisone. No other complaints or any other issues over the past 24 hours. No altered mentation. No nausea. No vomiting. No abdominal pain. On 09/10/2018, the patient remains pressor dependent. The patient is being treated for sepsis. No fever or chills. She was taken off the pressors for approximately 45 minutes and following that her systolic blood pressures dropped down to the low 70s. The pressors were restarted. She developed increased edema both in upper and lower extremity and the plan is to do daily dialysis with ultrafiltration and monitor blood pressure. As mentioned, the patient is still requiring levo fed support. C. diff was negative. The patient had gram- negative bacteremia and she was started on IV Rocephin and ultimately that the Vioxx was switched to a 15. The patient has possible culture with procidentia and urine cultures positive for Enterobacter. She is feeling better. She is ambulating for now. is at the bedside. Objective - Vital Signs Vital signs: Vital Signs Temp 97.6 F 09/10/18 04:00 Pulse 76 09/10/18 10:15 Resp 18 09/10/18 10:15 BP 109/69 09/10/18 10:15 Pulse Ox 96 09/10/18 10:15 Intake & Output 09/09/18 09/10/18 09/10/18 18:59 06:59 18:59 Intake Total 1184.044 590 190 Output Total 0 0 Balance 1184.044 590 190 Weight 86.8 kg Intake: IV 430 390 190 0.9 330 390 90 Cefepime 2 gm In Sodium 100 100 Chloride 0.9% 100 ml @ 200 mls/hr IVPB DAILY [facility] Rx#:[id number] Intake, IV Titration 18.044 0 Amount Norepinephrine 4 mg In 18.044 0 Sodium Chloride 0.9% 250 ml @ 0.05 MCG/KG/MIN 15. 554 mls/hr IV .[id number] [facility] Rx#:[id number] Oral 736 200 Output: Urine 0 0 - Exam General: Chronically ill-appearing, no distress, appears at stated age Derm: warm, dry Head exam was generally normal. There was no scleral icterus or corneal arcus. Mucous membranes were moist. Neck was supple and without jugular venous distension, thyromegaly, or carotid bruits. Carotids were easily palpable bilaterally. There was no adenopathy. Eyes: EOMI, no lid lag, anicteric sclera Mouth: no lip lesion, mucus membranes moist Cardiovascular: S1S2 reg, no murmur, positive posterior tibial pulse bilateral, Lungs: rhonchi bilateral bases, no rhonchi, no rales , no accessory muscle use Abdominal: soft, nontender to palpation, no guarding, no appreciable organomegaly Ext: no gross muscle atrophy,3+ edema bilateral lower extremities, no co ntractures Neuro: CN II-XI grossly intact, no focal neuro deficits Psych: Alert, oriented, upset and the patient feels increasingly depressed and anxious Examination of the skin revealed no evidence of significant rashes, suspicious appearing nevi or other concerning lesions. The patient has multiple areas of ecchymosis on her skin related to previous episodes especially over the anterior abdominal wall. - Labs CBC & Chem 7: 09/10/18 05:34 09/10/18 05:34 Labs: Abnormal Lab Results - Last 24 Hours (Table) 09/09/18 09/09/18 09/10/18 Range/Units 17:04 17:04 05:34 RBC 2.57 L (3.80-5.40) m/uL Hgb 7.3 L (11.4-16.0) gm/dL Hct 23.7 L (34.0-46.0) % MCHC 30.8 L (31.0-37.0) g/dL RDW 18.5 H (11.5-15.5) % Plt Count 65 L (150-450) k/uL Lymphocytes # 0.1 L (1.0-4.8) k/uL APTT 41.0 H (22.0-30.0) sec D-Dimer 4.12 H (<0.60) mg/L FEU Sodium (137-145) mmol/L Carbon Dioxide (22-30) mmol/L BUN (7-17) mg/dL Creatinine (0.52-1.04) mg/dL Glucose (74-99) mg/dL Calcium (8.4-10.2) mg/dL Total Bilirubin (0.2-1.3) mg/dL Alkaline Phosphatase (38-126) U/L Total Protein (6.3-8.2) g/dL Total Protein (PEP) 3.9 L (6.2-8.2) g/dL Albumin (3.5-5.0) g/dL 09/10/18 Range/Units 05:34 RBC (3.80-5.40) m/uL Hgb (11.4-16.0) gm/dL Hct (34.0-46.0) % MCHC (31.0-37.0) g/dL RDW (11.5-15.5) % Plt Count (150-450) k/uL Lymphocytes # (1.0-4.8) k/uL APTT (22.0-30.0) sec D-Dimer (<0.60) mg/L FEU Sodium 131 L (137-145) mmol/L Carbon Dioxide 21 L (22-30) mmol/L BUN 52 H (7-17) mg/dL Creatinine 3.00 H (0.52-1.04) mg/dL Glucose 126 H (74-99) mg/dL Calcium 8.3 L (8.4-10.2) mg/dL Total Bilirubin 2.2 H (0.2-1.3) mg/dL Alkaline Phosphatase 462 H (38-126) U/L Total Protein 4.4 L (6.3-8.2) g/dL Total Protein (PEP) (6.2-8.2) g/dL Albumin 2.5 L (3.5-5.0) g/dL Microbiology - Last 24 Hours (Table) 09/08/18 07:45 Blood Culture - Preliminary Blood No Growth after 48 hours 09/07/18 11:15 Blood Culture - Preliminary Blood No Growth after 48 hours Assessment and Plan Plan: 1 hypotension , which is essentially multifactorial. The patient runs chronically low blood pressure due to low vascular tone and neuropathy and she has been maintained on midodrine on outpatient basis. Nevertheless, there has been further interval drop in the blood pressure due to hypovolemia and bacteremia with gram-negative bacteria. The cultures of been showing probably dementia in the blood and furthermore the patient was found to have Enterobacter in the urine. Currently she is on IV cefepime. She is been very sensitive in terms of her blood pressure control and she is still requiring a low dose of norepinephrine infusion which is currently running at 1 g per minute. She seems to be dependent on that. 2 multiple myeloma started on systemic treatment with a combination of Cytoxan and Decadron and Velcade. The patient has light chain disease 3 myeloma kidney. The patient is currently dialysis dependent and her renal fa crorie is End stage requiring dialysis. Her last dialysis was around 2 days ago and the patient is going to undergo another session of dialysis today. 4 diastolic heart failure/infiltrative cardiomyopathy probably due to myeloma/amyloidosis disease 5 small to moderate pericardial effusion, please refer to the most is the echocardiogram that showed infiltrative heart disease secondary to amyloidosis and concentric LVH with ejection fraction of 55-60% and moderate to severe mitral regurgitation 6 diarrhea, rule out C. diff colitis, subsided and stool evaluation for C. diff was not done. 7 massive anasarca and volume overload with extensive lower extremity edema 8 chronic hypertension 9 chronic anxiety/depression 10 chronic anemia 11 hypothyroidism currently on Synthroid, the TSH remains low and the free T4 is low normal and will increase the thyroid hormone replacement dose 12 hyperlipidemia Plan Continue IV cefepime. Wean pressors if possible. No hemodialysis for today. The patient is going to have day-to-day dialysis with ultrafiltration to improve her volume status. She is still requiring pressors for hemodynamic support. This is partly related to her low vascular tone in addition to sepsis. She is improving however. She was able to be off pressors for almost 45 minutes and she had to go back. The patient otherwise is receiving supportive care. We'll keep in ICU as long as she is pressor dependent. No other issues for now. We'll continue to follow.
--- NOTE | 2018-09-10 13:12 | PN ---
PROGRESS NOTE DATE OF SERVICE: 09/09/2018. REASON FOR FOLLOWUP: Bacteremia. INTERVAL HISTORY: The patient is currently afebrile. The patient is breathing comfortably. Denies having any chest pain, cough. No nausea, vomiting. No abdominal pain and no diarrhea. PHYSICAL EXAMINATION: Blood pressure 102/60 with a pulse of 73, temperature 98. She is 96%. General description is a middle-aged female up in the bed in no distress. RESPIRATORY SYSTEM: Unlabored breathing, clear to auscultation anteriorly. HEART: S1, S2. Regular rate and rhythm. ABDOMEN: Soft, no tenderness. LABS: Hemoglobin is 7.9, white count 9.9 with a BUN of 43, creatinine is 2.36. Blood culture with Providencia. Urine is Enterobacter. DIAGNOSTIC IMPRESSION AND PLAN: Patient with a positive blood culture Providencia with question of question of possible PermCath related as she did grow different pathogen from the urine. Blood culture repeat has been negative so far. Patient is currently covered with cefepime. Recommending a two week course of IV antibiotics and repeat blood cultures at that time from the PermCath, which if positive she may need removal of PermCath at that time. has been at the bedside. Questions were sought and answered. MMODL / IJN: [id number] /
[2018-09-10] MEDS: LOPERAMIDE 2 MG CAP PO PRN (15:32)
--- NOTE | 2018-09-10 22:02 | PN ---
PROGRESS NOTE DATE OF SERVICE: 09/10/2018. REASON FOR FOLLOWUP: Gram-negative bacteremia and UTI. INTERVAL HISTORY: The patient is currently afebrile. Patient has been breathing comfortably. The patient denies having any chest pain or shortness of breath. No nausea. No abdominal pain, no diarrhea. PHYSICAL EXAMINATION: Blood pressure 109/62 with a pulse of 74. Temperature 98. She is 97% on room air. General description is a middle aged female lying in bed in no distress. RESPIRATORY SYSTEM: Unlabored breathing with decreased breath sounds at the base. HEART: S1, S2. Regular rate and rhythm. ABDOMEN: Soft, no tenderness. LABS: Hemoglobin 7.4 , white count 4.7, BUN of 58, creatinine 3.0. Blood culture 09/08 has been negative. DIAGNOSTIC IMPRESSION AND PLAN: Patient with Providencia bacteremia with possible PermCath. The patient is currently on cefepime, to continue. Blood culture repeat has been negative. We will keep the patient on IV cefepime while inpatient and finish therapy with oral Cipro on discharge with close outpatient followup with plan for repeat blood cultures after completing antibiotic to make sure no evidence of recurrent bacteremia, which if the case the PermCath will have to be removed. This was discussed in detail with family. Questions were answered. MMODL / IJN: [id number] /
[2018-09-11] MEDS: NOREPINEPHRINE 4 MG in SODIUM CHLORIDE 0.9% 250 ML IV SCH ×2 (04:20→14:55)
[2018-09-11] MEDS: HYDROCORTISONE SUCCINATE 100 MG/2 ML VIAL IV SCH ×4 (04:40→23:36)
[2018-09-11 05:47] LABS: Anisocytosis Slight; HCT 23.6 % (34.0-46.0); HGB 7.4 gm/dL (11.4-16.0); Hypochromasia Slight; MCH 28.4 pg (25.0-35.0); MCHC 31.3 g/dL (31.0-37.0); MCV 90.9 fL (80.0-100.0); Mean Platelet Volume 9.3; Platelet Count 54 k/uL (150-450); RBC 2.59 m/uL (3.80-5.40); RDW 18.7 % (11.5-15.5); WBC 2.5 k/uL (3.8-10.6)
[2018-09-11 05:57] LABS: Albumin 2.4 g/dL (3.5-5.0); Calcium 8.3 mg/dL (8.4-10.2); Potassium 4.3 mmol/L (3.5-5.1); Total Bilirubin 1.5 mg/dL (0.2-1.3); Total Protein 4.3 g/dL (6.3-8.2)
[2018-09-11] MEDS: MIDODRINE 5 MG TAB PO SCH ×3 (06:43→16:58)
[2018-09-11] MEDS: LEVOTHYROXINE 50 MCG TAB PO SCH (06:44)
[2018-09-11] MEDS: SEVELAMER 800 MG TAB PO SCH ×3 (06:44→16:58)
[2018-09-11] MEDS: PANTOPRAZOLE 40 MG TABLET PO SCH (06:44)
--- NOTE | 2018-09-11 08:16 | XR ---
EXAMINATION TYPE: XR chest 1V portable DATE OF EXAM: 09/11/2018 Comparison: 09/10/2018 Clinical History: 58-year-old female SOB Findings: Right-sided double-lumen hemodialysis catheter with tips at the cavoatrial junction. Heart remains mi ldly enlarged. Diffuse interstitial and vascular prominence slightly increased. Hazy and patchy right greater than left bibasilar opacities also increased. Impression: 1. Continued fluid overload now with pulmonary vascular congestion. 2. Increasing akkbh-fj-ciigitdd right and small left pleural effusions with adjacent atelectasis and/ or consolidation.
--- NOTE | 2018-09-11 09:11 | P.PN ---
Subjective Patient is seen in follow-up for acute kidney injury, currently hemodialysis dependent. She is maintained on hemodialysis on a Tuesday schedule. Currently seen while undergoing hemodialysis. She is on low-dose Levophed. She is also receiving IV steroids. She remains oliguric. Blood culture is positive for providencia and urine culture is positive for Enterobacter. Vital signs are stable. General: The patient appeared well nourished and normally developed. HEENT: Head exam is unremarkable. Neck is without jugular venous distension. LUNGS: Lungs are clear to auscultation and percussion. Breath sounds decreased. HEART: Rate and Rhythm are regular. First and second heart sounds normal. No murmurs, rubs or gallops. ABDOMEN: Abdominal exam reveals normal bowel sounds. Non-tender and non- distended. EXTREMITITES: 2+ edema. Objective - Vital Signs Vital signs: Vital Signs Temp 97.5 F L 09/11/18 08:00 Pulse 69 09/11/18 08:30 Resp 12 09/11/18 08:30 BP 109/72 09/11/18 08:30 Pulse Ox 95 09/11/18 08:30 Intake & Output 09/10/18 09/11/18 09/11/18 18:59 06:59 18:59 Intake Total 430 789.783 40 Balance 430 789.783 40 Weight 84.4 kg Intake: IV 430 250 40 0.9 330 250 40 Cefepime 2 gm In Sodium 100 Chloride 0.9% 100 ml @ 200 mls/hr IVPB DAILY [facility] Rx#:[id number] Intake, IV Titration 0 59.783 Amount Norepinephrine 4 mg In 0 59.783 Sodium Chloride 0.9% 250 ml @ 0.05 MCG/KG/MIN 15. 554 mls/hr IV .[id number] [facility] Rx#:[id number] Oral 480 Other: # Voids 0 # Bowel Movements 1 - Labs CBC & Chem 7: 09/11/18 05:24 09/11/18 05:24 Labs: Abnormal Lab Results - Last 24 Hours (Table) 09/11/18 09/11/18 Range/Units 05:24 05:24 WBC 2.5 L (3.8-10.6) k/uL RBC 2.59 L (3.80-5.40) m/uL Hgb 7.4 L (11.4-16.0) gm/dL Hct 23.6 L (34.0-46.0) % RDW 18.7 H (11.5-15.5) % Plt Count 54 L (150-450) k/uL Sodium 132 L (137-145) mmol/L BUN 66 H (7-17) mg/dL Creatinine 3.17 H (0.52-1.04) mg/dL Glucose 117 H (74-99) mg/dL Calcium 8.3 L (8.4-10.2) mg/dL Total Bilirubin 1.5 H (0.2-1.3) mg/dL Alkaline Phosphatase 514 H (38-126) U/L Total Protein 4.3 L (6.3-8.2) g/dL Albumin 2.4 L (3.5-5.0) g/dL Microbiology - Last 24 Hours (Table) 09/07/18 11:15 Blood Culture - Preliminary Blood No Growth after 72 hours 09/08/18 07:45 Blood Culture - Preliminary Blood No Growth after 48 hours Assessment and Plan Plan: Assessment: 1. Acute kidney injury, currently hemodialysis dependent. Etiology is hypotension and multiple myeloma. 2. Hypotension maintained on midodrine as well as steroids. On low-dose Levophed. 3. Volume overload secondary to hypoalbuminemia. She also has underlying infiltrative cardiomyopathy. 4. Hypervolemic hyponatremia. Better. 5. Anemia of chronic kidney disease maintained on Aranesp. Also related to underlying myeloma. 6. Multiple myeloma. Oncology following. 7. Syncopal episode. Likely related to underlying hypotension. 8. Recent C. diff. s/p oral vancomycin. 9. Sepsis secondary to providencia bacteremia and Enterobacter UTI. On IV antibiotics. Plan: Currently seen while undergoing hemodialysis. Continue with daily dialysis for now mostly for ultrafiltration. Maintain midodrine and IV steroids.
--- NOTE | 2018-09-11 10:26 | P.PN ---
Subjective Progress Note Date: 09/11/18 Principal diagnosis: Amyloidisis and Lamda FLC Myeloma FLC has shown patient is responding to treatment, Her CBC counts decreasing from treatment. Afebrile. Objective - Vital Signs Vital signs: Vital Signs Temp 97.5 F L 09/11/18 08:00 Pulse 71 09/11/18 10:00 Resp 20 09/11/18 10:00 BP 110/66 09/11/18 10:00 Pulse Ox 97 09/11/18 10:00 Intake & Output 09/10/18 09/11/18 09/11/18 18:59 06:59 18:59 Intake Total 430 789.783 80 Balance 430 789.783 80 Weight 84.4 kg Intake: IV 430 250 80 0.9 330 250 80 Cefepime 2 gm In Sodium 100 Chloride 0.9% 100 ml @ 200 mls/hr IVPB DAILY [facility] Rx#:[id number] Intake, IV Titration 0 59.783 Amount Norepinephrine 4 mg In 0 59.783 Sodium Chloride 0.9% 250 ml @ 0.05 MCG/KG/MIN 15. 554 mls/hr IV .[id number] [facility] Rx#:[id number] Oral 480 Other: # Voids 0 # Bowel Movements 1 - Exam Gen: Alert and oriented Head: NCNT Neck: Supple Lungs: CTA Bilateral Abdomen S?ND EXT 3+ BLE Edema Neuro - Non focal - Labs CBC & Chem 7: 09/11/18 05:24 09/11/18 05:24 Labs: Abnormal Lab Results - Last 24 Hours (Table) 09/09/18 09/11/18 09/11/18 Range/Units 05:12 05:24 05:24 WBC 2.5 L (3.8-10.6) k/uL RBC 2.59 L (3.80-5.40) m/uL Hgb 7.4 L (11.4-16.0) gm/dL Hct 23.6 L (34.0-46.0) % RDW 18.7 H (11.5-15.5) % Plt Count 54 L (150-450) k/uL Sodium 132 L (137-145) mmol/L BUN 66 H (7-17) mg/dL Creatinine 3.17 H (0.52-1.04) mg/dL Glucose 117 H (74-99) mg/dL Calcium 8.3 L (8.4-10.2) mg/dL Total Bilirubin 1.5 H (0.2-1.3) mg/dL Alkaline Phosphatase 514 H (38-126) U/L Total Protein 4.3 L (6.3-8.2) g/dL Albumin 2.4 L (3.5-5.0) g/dL Free Lambda LC, Quant 30.20 H (0.57-2.63) mg/dL Microbiology - Last 24 Hours (Table) 09/07/18 11:15 Blood Culture - Preliminary Blood No Growth after 72 hours 09/08/18 07:45 Blood Culture - Preliminary Blood No Growth after 48 hours Assessment and Plan Plan: Bacteremia Gram Negative Bacilli UTI: - Infectious Disease is following - COntinue antibiotic coverage Multiple myeloma - Diagnosis and treatment as outlined in HPI. Was due to complete cycle 1 of CyBorD this Tuesday, this will be held until infection cleared. 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 Syncopal Episode: - Likely related to Bacteremia and hypotension Hypotension: - Multifactorial; iAmloid of Kidneys, Component bacteremia - Adrenal Insuf ruled out Renal Amyloidosis Nephrology consulted Hyperbilirubinemia: - Likely secondary to Hypotension and medications, shock liver Thrombocytopenia: - Secondary to recent chemotherapu Plan: - Hold Treatment at this time and continue treatment of infection - Continue intensive supportive care At this time. - Once cleared will restart - Continue care ICU - Likely transfuse in am with dialysis if hemoglobin under 7
[2018-09-11] MEDS: CEFEPIME 2 GM in SODIUM CHLORIDE 0.9% 100 ML IVPB SCH (11:53)
[2018-09-11] MEDS: ASPIRIN 81 MG PO SCH (11:53)
[2018-09-11] MEDS: SODIUM BICARBONATE TAB 650 MG TAB PO SCH ×3 (11:53→21:07)
[2018-09-11] MEDS: FOLIC ACID-VIT B COMPLEX-VIT C 1 CAP PO SCH (11:53)
[2018-09-11] MEDS: ALLOPURINOL 100 MG TAB PO SCH (11:53)
[2018-09-11 13:27] LABS: Albumin 2.15 g/dL (3.80-4.90); Gamma Globulin 0.12 g/dL (0.70-1.50)
--- NOTE | 2018-09-11 14:03 | P.PN ---
Subjective Progress Note Date: 09/11/18 The patient was seen and examined at the bedside in the MICU. The patient reports continued occasional dizziness and somewhat loose and frequent bowel movements, though improved from prior, but otherwise denied additional complaints including fever, chills, nausea, vomiting, chest pain, or SOB. Objective - Vital Signs Vital signs: Vital Signs Temp 97.4 F L 09/11/18 12:00 Pulse 78 09/11/18 12:30 Resp 14 09/11/18 12:30 BP 91/50 09/11/18 12:30 Pulse Ox 96 09/11/18 12:30 Intake & Output 09/10/18 09/11/18 09/11/18 18:59 06:59 18:59 Intake Total 430 789.783 240 Output Total 2100 Balance 430 789.783 -1860 Weight 84.4 kg 84.4 kg Intake: IV 430 250 240 0.9 330 250 140 Cefepime 2 gm In Sodium 100 100 Chloride 0.9% 100 ml @ 200 mls/hr IVPB DAILY [facility] Rx#:[id number] Intake, IV Titration 0 59.783 Amount Norepinephrine 4 mg In 0 59.783 Sodium Chloride 0.9% 250 ml @ 0.05 MCG/KG/MIN 15. 554 mls/hr IV .[id number] [facility] Rx#:[id number] Oral 480 Output: Hemodialysis 2100 Other: # Voids 0 # Bowel Movements 1 - Exam General: Somewhat ill appearing, in no acute distress, appears stated age HEENT: NC/AT, anicteric sclerae, moist conjunctiva, no lid-lag, PERRLA Cardiovascular: S1/S2 wnl, no murmurs, rubs, or gallops Lungs: Clear to auscultation, normal respiratory effort, no accessory muscle use Abdominal: Soft, non-tender, non-distended, no guarding, rebound, or rigidity Skin: Warm, dry Extremities: Anasarca, no contractures Psychiatric: Alert and oriented to person, place and time, appropriate affect Neuro: CN II-XII grossly intact, Strength 5/5 in all 4 extremities, Speech intact, Sensation to light touch grossly intact throughout - Labs CBC & Chem 7: 09/11/18 05:24 09/11/18 05:24 Labs: Abnormal Lab Results - Last 24 Hours (Table) 09/07/18 09/09/18 09/09/18 Range/Units 05:56 05:12 17:04 WBC (3.8-10.6) k/uL RBC (3.80-5.40) m/uL Hgb (11.4-16.0) gm/dL Hct (34.0-46.0) % RDW (11.5-15.5) % Plt Count (150-450) k/uL Sodium (137-145) mmol/L BUN (7-17) mg/dL Creatinine (0.52-1.04) mg/dL Glucose (74-99) mg/dL Calcium (8.4-10.2) mg/dL Total Bilirubin (0.2-1.3) mg/dL Alkaline Phosphatase (38-126) U/L Total Protein (6.3-8.2) g/dL Albumin (3.5-5.0) g/dL Albumin (PEP) 2.15 L (3.80-4.90) g/dL Ezcms-6-Xopvrybec 0.74 H (0.10-0.40) g/dL Kbwbl-3-Mqneeheaz 0.59 L (0.60-1.00) g/dL Beta Globulins 0.31 L (0.60-1.30) g/dL Gamma Globulins 0.12 L (0.70-1.50) g/dL RBC Folate 941 H (280 - 791) ng/mL Free Lambda LC, Quant 30.20 H (0.57-2.63) mg/dL 09/11/18 09/11/18 Range/Units 05:24 05:24 WBC 2.5 L (3.8-10.6) k/uL RBC 2.59 L (3.80-5.40) m/uL Hgb 7.4 L (11.4-16.0) gm/dL Hct 23.6 L (34.0-46.0) % RDW 18.7 H (11.5-15.5) % Plt Count 54 L (150-450) k/uL Sodium 132 L (137-145) mmol/L BUN 66 H (7-17) mg/dL Creatinine 3.17 H (0.52-1.04) mg/dL Glucose 117 H (74-99) mg/dL Calcium 8.3 L (8.4-10.2) mg/dL Total Bilirubin 1.5 H (0.2-1.3) mg/dL Alkaline Phosphatase 514 H (38-126) U/L Total Protein 4.3 L (6.3-8.2) g/dL Albumin 2.4 L (3.5-5.0) g/dL Albumin (PEP) (3.80-4.90) g/dL Nkrcy-7-Fqoyaczib (0.10-0.40) g/dL Znnxe-3-Pwkwxdvvi (0.60-1.00) g/dL Beta Globulins (0.60-1.30) g/dL Gamma Globulins (0.70-1.50) g/dL RBC Folate (280 - 791) ng/mL Free Lambda LC, Quant (0.57-2.63) mg/dL Microbiology - Last 24 Hours (Table) 09/08/18 07:45 Blood Culture - Preliminary Blood No Growth after 72 hours 09/07/18 11:15 Blood Culture - Preliminary Blood No Growth after 72 hours Assessment and Plan Plan: Presyncope, likely secondary to bactaremia (Providencia w/ Enterobacter in Urine -- suspected to be same bacteria) -Continues to be dependent on low-dose Levophed, though did tolerate a 45 minute break yesterday -Continue w/ Cortef and Midodrine -C/w Levothyroxine -ID following, recs apprciated -C/w Cefepime 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, currently HD dependent -Nephrology following -Underwent HD earlier today and scheduled to undergo further sessions on 09/12 and 09/13 -Daily weights -I/Os -Monitor CMP Thrombocytopenia -Likely secondary to Chemo and Abx use -Monitor CBC -IPCDs Multiple myeloma -Oncology following Anemia, likely secondary to Chemotherapy -Iron, B12, and Folate blood work reviewed DVT prophylaxis -IPCDs Discussed with: Patient, , RN Anticipated discharge date: 3-[address]: Home A total of 35 minutes was spent on the care of this complex patient more than 50% of the time was spent in counseling and care coordination.
--- NOTE | 2018-09-11 14:50 | P.PN ---
Subjective Progress Note Date: 09/11/18 Principal diagnosis: Acute gram-negative sepsis and septic shock. With gram-negative bacteremia 58-year-old female patient with known history of multiple myeloma and amyloidosis and End stage renal disease is currently on hemodialysis. The patient also has infiltrative cardiomyopathy with diastolic dysfunction and a preserved LV function. The patient is on hemodialysis for the time being 3 times a week and has last hemodialysis session was 2 days ago. The patient came into the emergency department after being discharged from [facility] approximately 5 days ago. The patient wasn't [facility] meeting with complications of myeloma and renal failure between 08/09/2018 and 09/02/2018. During this time the patient was started on systemic chemotherapy with a combination of c yclophosphamide, Velcade and Decadron. She opted to continue her treatment locally with Dr. Hernandez. Patient came into the ED because of generalized weakness and hypotension and near syncope. As mentioned her last chemo was 5 days ago. She was getting progressively more weak. Acting out of ordinary last night and somewhat confused. She was having lightheadedness and some degree of shortness of breath and in his edema all over especially in lower extremities. The patient was also having diarrhea over the past 2-3 days. No chest pain. Initial systolic blood pressure was in the low 80s. Upon arrival to the emergency department the patient was afebrile. The systolic blood pressure was recorded to be as low as 70 with diastolic of 36. The patient was given a total of 2 L of IV fluid. The patient following that improved. Nevertheless, based on the extensive surgery. Volume overload, total decided not to give her any further fluids. Nephrology was involved in the case and the patient will be started on hemodialysis. Meanwhile, it was advised for this patient to moved to the ICU for any pressor treatment if needed should he develop any hypotension. Patient's white cell count is at 5.5. The patient seemed was at 7.4. Renal function shows a BUN of 51 with a creatinine of 2.7. The troponin was not measures. Lactic acid level is at 2.0. ProBNP level is 150,000. The chest x-ray shows chronic right basilar infiltration/atelectasis. Note that this patient typically runs a low blood pressure. She is on midodrine outpatient basis 10 mg by mouth 3 times a day. On 09/07/2018 the patient is awake and alert. She has no specific complaints. She has still increased edema lower extremities. The blood cultures showing gram-negative rods and final cultures sensitivities are still pending. The patient underwent hemodialysis yesterday and during the last as the patient required pressors in the form of norepinephrine infusion which is running at a very low-dose for now. Her systolic blood pressures are low 80s. She is asymptomatic with her low blood pressure. Urine output is almost not present. The patient was seen by nephrology. IV Lasix was given to generate some urine output. The patient was also placed on IV antibiotics and currently she is on IV Rocephin. She is also on midodrine 10 mg by mouth 3 times a day. Chest x- ray shows some increased vascular congestion and right-sided pleural effusion more than left. No altered mentation. No headache. No chest pain. No other significant events overnight. The diarrhea has subsided. On 09/08/2018 I'm seeing this patient for a follow-up. The patient is still having issues with blood pressure. She is on low-dose levo fed. Blood culture came back positive for prevention and the suspected source is the urinary tract. The patient is currently on IV cefepime. The patient underwent hemodialysis today. No major issues with blood pressure hypotension. The dialysis catheter site is dry clean and intact. Cultures of been sent from the catheter and the urine. The patient has no new complaints. She is quite weak. She is lethargic. She has increased lower extremities edema. She is on IV Lasix. Her urine output is minimal. No nausea. No vomiting. No abdominal pain. Oral intake is diminished and the patient is not taking her full dietary requirements. Seconds at 8.5. Rest of the blood work and electrodes are all within normal limits. TSH was at 9.9 and the Synthroid dose has been modified. On 09/09/2018 the patient seems to be much improved compared to yesterday. Her last hemodialysis session was yesterday and this morning she looks to be much more alert and awake and interactive. No fever or chills. She is still on 1 g per minute of norepinephrine infusion for blood pressure control. The patient is on IV cefepime. The blood culture was positive for procidentia and the urine culture was positive for Enterobacter. The cultures obtained from the catheter is been negative. The patient is doing well. No nausea. No vomiting. She has developed increased edema in the upper and lower extremity which is chronic. She is receiving still IV Lasix. She was able to ambulate in the hallway. She is on stress dose hydrocortisone. No other complaints or any other issues over the past 24 hours. No altered mentation. No nausea. No vomiting. No abdominal pain. Was reevaluated today on 09/11/2018, patient remains on hemodialysis, improving, remains on a very small tiny dose of 2 mcg/m of norepinephrine, she is also on IV cefepime for her positive blood cultures showing providentia and Enterobacter. The most likely source of her infection is likely urine unless proven otherwise. Clinically the patient is feeling better, breathing easier, denies any pain, denies any shortness of breath, she feels a bit lightheaded. She remains on stress doses of hydrocortisone. WBC count is 2.5 hemoglobin is 7.4. Electrolytes are relatively normal. BUN is 66 creatinine 3.17. Objective - Vital Signs Vital signs: Vital Signs Temp 97.4 F L 09/11/18 12:00 Pulse 78 09/11/18 12:30 Resp 14 09/11/18 12:30 BP 91/50 09/11/18 12:30 Pulse Ox 96 09/11/18 12:30 Intake & Output 09/10/18 09/11/18 09/11/18 18:59 06:59 18:59 Intake Total 430 789.783 240 Output Total 2100 Balance 430 789.783 -1860 Weight 84.4 kg 84.4 kg Intake: IV 430 250 240 0.9 330 250 140 Cefepime 2 gm In Sodium 100 100 Chloride 0.9% 100 ml @ 200 mls/hr IVPB DAILY [facility]IE Rx#:[id number] Intake, IV Titration 0 59.783 Amount Norepinephrine 4 mg In 0 59.783 Sodium Chloride 0.9% 250 ml @ 0.05 MCG/KG/MIN 15. 554 mls/hr IV .[id number] [facility]GIE Rx#:[id number] Oral 480 Output: Hemodialysis 2100 Other: # Voids 0 # Bowel Movements 1 - Exam Physical Exam: Revealed a 58-year-old somewhat ill, in no distress. Head: Atraumatic, normocephalic. HEENT:[Neck is supple.] [No neck masses.] [No thyromegaly.] [No JVD.] PERRLA, EOMI, no icterus. Chest: [Clear throughout, no crackles, no rhonchi, no wheezes.] Cardiac Exam: [Normal S1 and S2, no S3 gallop, no murmur.] Abdomen: [Soft, nontender, no megaly, no rebound, no guarding, normal bowel so unds.] Extremities: [No clubbing, no edema, no cyanosis.] Neurological Exam: [No focal neurologic deficit.] Alert oriented 3. Skin: No rashes. Psychiatric: Normal mood affect and normal mental status examination. - Labs CBC & Chem 7: 09/11/18 05:24 09/11/18 05:24 Labs: Abnormal Lab Results - Last 24 Hours (Table) 09/07/18 09/09/18 09/09/18 Range/Units 05:56 05:12 17:04 WBC (3.8-10.6) k/uL RBC (3.80-5.40) m/uL Hgb (11.4-16.0) gm/dL Hct (34.0-46.0) % RDW (11.5-15.5) % Plt Count (150-450) k/uL Sodium (137-145) mmol/L BUN (7-17) mg/dL Creatinine (0.52-1.04) mg/dL Glucose (74-99) mg/dL Calcium (8.4-10.2) mg/dL Total Bilirubin (0.2-1.3) mg/dL Alkaline Phosphatase (38-126) U/L Total Protein (6.3-8.2) g/dL Albumin (3.5-5.0) g/dL Albumin (PEP) 2.15 L (3.80-4.90) g/dL Ybxpf-2-Fwbjryhsl 0.74 H (0.10-0.40) g/dL Qyvzy-2-Xcndszxzx 0.59 L (0.60-1.00) g/dL Beta Globulins 0.31 L (0.60-1.30) g/dL Gamma Globulins 0.12 L (0.70-1.50) g/dL RBC Folate 941 H (280 - 791) ng/mL Free Lambda LC, Quant 30.20 H (0.57-2.63) mg/dL 09/11/18 09/11/18 Range/Units 05:24 05:24 WBC 2.5 L (3.8-10.6) k/uL RBC 2.59 L (3.80-5.40) m/uL Hgb 7.4 L (11.4-16.0) gm/dL Hct 23.6 L (34.0-46.0) % RDW 18.7 H (11.5-15.5) % Plt Count 54 L (150-450) k/uL Sodium 132 L (137-145) mmol/L BUN 66 H (7-17) mg/dL Creatinine 3.17 H (0.52-1.04) mg/dL Glucose 117 H (74-99) mg/dL Calcium 8.3 L (8.4-10.2) mg/dL Total Bilirubin 1.5 H (0.2-1.3) mg/dL Alkaline Phosphatase 514 H (38-126) U/L Total Protein 4.3 L (6.3-8.2) g/dL Albumin 2.4 L (3.5-5.0) g/dL Albumin (PEP) (3.80-4.90) g/dL Vuuvl-9-Gfideqbyb (0.10-0.40) g/dL Irybl-4-Rlkisiiuu (0.60-1.00) g/dL Beta Globulins (0.60-1.30) g/dL Gamma Globulins (0.70-1.50) g/dL RBC Folate (280 - 791) ng/mL Free Lambda LC, Quant (0.57-2.63) mg/dL Microbiology - Last 24 Hours (Table) 09/07/18 11:15 Blood Culture - Preliminary Blood No Growth after 96 hours 09/08/18 07:45 Blood Culture - Preliminary Blood No Growth after 72 hours Assessment and Plan Assessment: Impression: Hypotension secondary to sepsis and septic shock, also related to hypovolemia, Multiple myeloma recently started on systemic chemotherapy with Cytoxan and Deca dron and Velcade. Patient has light chain disease. Chronic kidney disease secondary to multiple myeloma, presently on hemodialysis. Diastolic congestive heart failure most likely secondary to infiltrative cardiomyopathy related to myeloma and amyloidosis. Moderate to severe mitral regurgitation Anasarca and extensive lower extremity edema, will likely improve with dialysis and ultrafiltration. Benign essential hypertension Chronic anemia Generalized anxiety disorder Hypothyroidism on replacement therapy Recommendation: Continue IV cefepime, continue and titrate norepinephrine to maintain adequate mean arterial pressure in the 60s. Continue hemodialysis and ultrafiltration, hemodynamic support, continue antibiotics for her underlying sepsis. We will continue to watch the patient in the ICU. Prognosis remains fairly guarded. We'll continue to follow. Time with Patient: Less than 30
--- NOTE | 2018-09-11 18:12 | PN ---
PROGRESS NOTE DATE OF SERVICE: 09/11/2018 REASON FOR FOLLOWUP: Providencia bacteremia; possible source Perm-A-Cath. UTI. INTERVAL HISTORY: The patient is currently afebrile. The patient is breathing comfortably. Denies having any chest pain or any cough. No nausea, no vomiting, no abdominal pain, no diarrhea. PHYSICAL EXAMINATION: Blood pressure 104/57 with a pulse of 75, temperature 98. She is 97% on room air. General description is a middle-aged female lying in bed in no distress. RESPIRATORY SYSTEM: Unlabored breathing with decreased breath sounds at the base. HEART: S1, S2. Regular rate and rhythm. ABDOMEN: Soft. LABS: BUN of 66, creatinine 3.17. Hemoglobin 7.4, white count 2.5. Blood culture from 09/08/2018 negative. DIAGNOSTIC IMPRESSION AND PLAN: Patient with Providencia rettgeri bacteremia; source possibly Wpni-H-Rfpc-related. Repeat blood culture has been negative. Currently on cefepime. therapy with oral Cipro and repeating blood cultures a week later from the Eueq-T-Xixdrcdb after completing her antibiotics. bacteremia and continue MMODL / IJN: [id number] /
[2018-09-11] MEDS: LOPERAMIDE 2 MG CAP PO PRN (19:53)
[2018-09-11] MEDS: MELATONIN 3 MG TABLET PO PRN (23:36)
[2018-09-12 06:04] LABS: Anisocytosis Slight; Hypochromasia Slight; MCH 28.1 pg (25.0-35.0); MCHC 31.1 g/dL (31.0-37.0); MCV 90.6 fL (80.0-100.0); Mean Platelet Volume 9.9; Platelet Count 47 k/uL (150-450); RBC 2.43 m/uL (3.80-5.40); RDW 18.6 % (11.5-15.5); WBC 1.8 k/uL (3.8-10.6)
[2018-09-12 06:09] LABS: Calcium 7.9 mg/dL (8.4-10.2)
[2018-09-12 06:23] LABS: HGB 6.8 gm/dL (11.4-16.0)
[2018-09-12] MEDS: LEVOTHYROXINE 50 MCG TAB PO SCH (07:00)
[2018-09-12] MEDS: SODIUM BICARBONATE TAB 650 MG TAB PO SCH ×3 (08:40→21:10)
[2018-09-12] MEDS: CEFEPIME 2 GM in SODIUM CHLORIDE 0.9% 100 ML IVPB SCH (08:40)
[2018-09-12] MEDS: MIDODRINE 5 MG TAB PO SCH ×3 (08:40→16:24)
[2018-09-12] MEDS: FOLIC ACID-VIT B COMPLEX-VIT C 1 CAP PO SCH (08:40)
[2018-09-12] MEDS: ASPIRIN 81 MG PO SCH (08:40)
[2018-09-12] MEDS: HYDROCORTISONE SUCCINATE 100 MG/2 ML VIAL IV SCH ×2 (08:40→16:24)
[2018-09-12] MEDS: SEVELAMER 800 MG TAB PO SCH ×3 (08:40→16:24)
[2018-09-12] MEDS: PANTOPRAZOLE 40 MG TABLET PO SCH (08:40)
[2018-09-12] MEDS: ALLOPURINOL 100 MG TAB PO SCH (08:40)
[2018-09-12] MEDS: NOREPINEPHRINE 4 MG in SODIUM CHLORIDE 0.9% 250 ML IV SCH (08:46)
[2018-09-12] MEDS: LOPERAMIDE 2 MG CAP PO PRN ×3 (09:47→21:10)
--- NOTE | 2018-09-12 10:11 | P.PN ---
Subjective Patient is seen in follow-up for acute kidney injury, currently hemodialysis dependent. She is maintained on hemodialysis on a Tuesday schedule. Currently seen while undergoing hemodialysis. She is on low-dose Levophed. She is also receiving IV steroids. She remains oliguric. Blood culture is positive for providencia and urine culture is positive for Enterobacter. Hemoglobin 6.8 today. No active bleeding. Vital signs are stable. General: The patient appeared well nourished and normally developed. HEENT: Head exam is unremarkable. Neck is without jugular venous distension. LUNGS: Lungs are clear to auscultation and percussion. Breath sounds decreased. HEART: Rate and Rhythm are regular. First and second heart sounds normal. No murmurs, rubs or gallops. ABDOMEN: Abdominal exam reveals normal bowel sounds. Non-tender and non- distended. EXTREMITITES: 2+ edema. Objective - Vital Signs Vital signs: Vital Signs Temp 97.4 F L 09/12/18 08:00 Pulse 89 09/12/18 08:30 Resp 14 09/12/18 08:30 BP 123/63 09/12/18 08:30 Pulse Ox 96 09/12/18 08:30 Intake & Output 09/11/18 09/12/18 09/12/18 18:59 06:59 18:59 Intake Total 374.74 243.422 61.096 Output Total 2200 0 Balance -1825.26 243.422 61.096 Weight 84.4 kg 84.7 kg Intake: IV 340 240 50 0.9 240 240 50 Cefepime 2 gm In Sodium 100 Chloride 0.9% 100 ml @ 200 mls/hr IVPB DAILY [facility] Rx#:[id number] Intake, IV Titration 34.74 3.422 11.096 Amount Norepinephrine 4 mg In 34.74 3.422 11.096 Sodium Chloride 0.9% 250 ml @ 0.05 MCG/KG/MIN 15. 554 mls/hr IV .[id number] [facility] Rx#:[id number] Output: Urine 100 0 Hemodialysis 2100 Other: Voiding Method Bedpan # Bowel Movements 1 1 - Labs CBC & Chem 7: 09/12/18 05:32 09/12/18 05:32 Labs: Abnormal Lab Results - Last 24 Hours (Table) 09/07/18 09/09/18 09/12/18 Range/Units 05:56 17:04 05:32 WBC 1.8 L (3.8-10.6) k/uL RBC 2.43 L (3.80-5.40) m/uL Hgb 6.8 L* (11.4-16.0) gm/dL Hct 22.0 L (34.0-46.0) % RDW 18.6 H (11.5-15.5) % Plt Count 47 L (150-450) k/uL Sodium (137-145) mmol/L BUN (7-17) mg/dL Creatinine (0.52-1.04) mg/dL Glucose (74-99) mg/dL Calcium (8.4-10.2) mg/dL Albumin (PEP) 2.15 L (3.80-4.90) g/dL Ymogi-0-Ticwowshu 0.74 H (0.10-0.40) g/dL Kiwbu-7-Lfowpwckz 0.59 L (0.60-1.00) g/dL Beta Globulins 0.31 L (0.60-1.30) g/dL Gamma Globulins 0.12 L (0.70-1.50) g/dL RBC Folate 941 H (280 - 791) ng/mL 09/12/18 Range/Units 05:32 WBC (3.8-10.6) k/uL RBC (3.80-5.40) m/uL Hgb (11.4-16.0) gm/dL Hct (34.0-46.0) % RDW (11.5-15.5) % Plt Count (150-450) k/uL Sodium 131 L (137-145) mmol/L BUN 51 H (7-17) mg/dL Creatinine 2.46 H (0.52-1.04) mg/dL Glucose 122 H (74-99) mg/dL Calcium 7.9 L (8.4-10.2) mg/dL Albumin (PEP) (3.80-4.90) g/dL Tewut-2-Urytxyzhg (0.10-0.40) g/dL Kaped-1-Vdiwibscl (0.60-1.00) g/dL Beta Globulins (0.60-1.30) g/dL Gamma Globulins (0.70-1.50) g/dL RBC Folate (280 - 791) ng/mL Microbiology - Last 24 Hours (Table) 09/07/18 11:15 Blood Culture - Preliminary Blood No Growth after 96 hours 09/08/18 07:45 Blood Culture - Preliminary Blood No Growth after 72 hours Assessment and Plan Plan: Assessment: 1. Acute kidney injury, currently hemodialysis dependent. Etiology is hypotension and multiple myeloma. 2. Hypotension maintained on midodrine as well as steroids. On low-dose Levophed. 3. Volume overload secondary to hypoalbuminemia. She also has underlying infiltrative cardiomyopathy. 4. Hypervolemic hyponatremia. Stable. 5. Anemia of chronic kidney disease maintained on Aranesp. Also related to underlying myeloma. Hemoglobin 6.8 today. No active bleeding. 6. Multiple myeloma. Oncology following. 7. Syncopal episode. Likely related to underlying hypotension. 8. Recent C. diff. s/p oral vancomycin. 9. Sepsis secondary to providencia bacteremia and Enterobacter UTI. On IV antibiotics. Plan: Currently seen while undergoing hemodialysis. Continue with daily dialysis for now mostly for ultrafiltration. Maintain midodrine and IV steroids. Scheduled for 1 unit of blood transfusion today.
--- NOTE | 2018-09-12 10:30 | P.PN ---
Subjective Progress Note Date: 09/12/18 Principal diagnosis: Amyloidisis and Lamda FLC Myeloma Diarrhea and hemoglbin 6.8 - nTransfue during diaylsis today Objective - Vital Signs Vital signs: Vital Signs Temp 97.4 F L 09/12/18 08:00 Pulse 89 09/12/18 08:30 Resp 14 09/12/18 08:30 BP 123/63 09/12/18 08:30 Pulse Ox 96 09/12/18 08:30 Intake & Output 09/11/18 09/12/18 09/12/18 18:59 06:59 18:59 Intake Total 374.74 243.422 61.096 Output Total 2200 0 Balance -1825.26 243.422 61.096 Weight 84.4 kg 84.7 kg Intake: IV 340 240 50 0.9 240 240 50 Cefepime 2 gm In Sodium 100 Chloride 0.9% 100 ml @ 200 mls/hr IVPB DAILY [facility] Rx#:[id number] Intake, IV Titration 34.74 3.422 11.096 Amount Norepinephrine 4 mg In 34.74 3.422 11.096 Sodium Chloride 0.9% 250 ml @ 0.05 MCG/KG/MIN 15. 554 mls/hr IV .[id number] [facility] Rx#:[id number] Output: Urine 100 0 Hemodialysis 2100 Other: Voiding Method Bedpan # Bowel Movements 1 1 - Exam Gen: Alert and oriented Head: NCNT Neck: Supple Lungs: CTA Bilateral Abdomen S?ND EXT 3+ BLE Edema Neuro - Non focal - Labs CBC & Chem 7: 09/13/18 05:41 09/13/18 05:41 Labs: Abnormal Lab Results - Last 24 Hours (Table) 09/07/18 09/09/18 09/12/18 Range/Units 05:56 17:04 05:32 WBC 1.8 L (3.8-10.6) k/uL RBC 2.43 L (3.80-5.40) m/uL Hgb 6.8 L* (11.4-16.0) gm/dL Hct 22.0 L (34.0-46.0) % RDW 18.6 H (11.5-15.5) % Plt Count 47 L (150-450) k/uL Sodium (137-145) mmol/L BUN (7-17) mg/dL Creatinine (0.52-1.04) mg/dL Glucose (74-99) mg/dL Calcium (8.4-10.2) mg/dL Albumin (PEP) 2.15 L (3.80-4.90) g/dL Lhude-4-Spknmptdv 0.74 H (0.10-0.40) g/dL Ifvwx-6-Nnywpdubr 0.59 L (0.60-1.00) g/dL Beta Globulins 0.31 L (0.60-1.30) g/dL Gamma Globulins 0.12 L (0.70-1.50) g/dL RBC Folate 941 H (280 - 791) ng/mL 09/12/18 Range/Units 05:32 WBC (3.8-10.6) k/uL RBC (3.80-5.40) m/uL Hgb (11.4-16.0) gm/dL Hct (34.0-46.0) % RDW (11.5-15.5) % Plt Count (150-450) k/uL Sodium 131 L (137-145) mmol/L BUN 51 H (7-17) mg/dL Creatinine 2.46 H (0.52-1.04) mg/dL Glucose 122 H (74-99) mg/dL Calcium 7.9 L (8.4-10.2) mg/dL Albumin (PEP) (3.80-4.90) g/dL Wanay-6-Xvcmzevsm (0.10-0.40) g/dL Yyacs-3-Rwqpwsspz (0.60-1.00) g/dL Beta Globulins (0.60-1.30) g/dL Gamma Globulins (0.70-1.50) g/dL RBC Folate (280 - 791) ng/mL Microbiology - Last 24 Hours (Table) 09/07/18 11:15 Blood Culture - Preliminary Blood No Growth after 96 hours 09/08/18 07:45 Blood Culture - Preliminary Blood No Growth after 72 hours Assessment and Plan Plan: Bacteremia Gram Negative Bacilli UTI: - Infectious Disease is following - COntinue antibiotic coverage Multiple myeloma - Diagnosis and treatment as outlined in HPI. Was due to complete cycle 1 of CyBorD this Tuesday, this will be held until infection cleared. 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 Syncopal Episode: - Likely related to Bacteremia and hypotension Hypotension: - Multifactorial; iAmloid of Kidneys, Component bacteremia - Adrenal Insuf ruled out Renal Amyloidosis Nephrology consulted Hyperbilirubinemia: - Likely secondary to Hypotension and medications, shock liver Thrombocytopenia: - Secondary to recent chemotherapu Diarrhea: - Cheeck stool studies - Add questran Plan: - Hold Treatment at this time and continue treatment of infection - Continue intensive supportive care At this time. - Once cleared will restart - Continue care ICU - Check C-diff add questran - Transfuse Prbc today with Diaylsis
--- NOTE | 2018-09-12 11:02 | P.PN ---
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 The patient was noted to be hypotensive upon EMS arrival. Nephrology and hematology were consulted and recommended 2 L of IV fluids and IV pressor support.The patient was recently hospitalized from 08/09 to 09/02 for myeloma related kidney dysfunction along with cardiology myopathy. She had received chemotherapy and was started on dialysis, along with being diagnosed with C. diff for which she completed a ten-day course of oral vancomycin. The patient was subsequently admitted to the medical ICU and was started on IV pressors. The patient's blood cultures initially grew gram-negative organisms after which infectious disease was consulted and the patient was started on ceftriaxone which was subsequently transitioned to cefepime. The blood culture resulted w/ provdencia as the patient continued to require Levophed. She was resumed on HD (ultrafiltration) as she remained oliguric. She was able to tolerate being off of Levophed for 45 minutes on 09/10 and the Levophed was held upwards of 12 hours on 09/11 after which she was restarted on it due to hypotension. The patient's Hgb dropped to 6.8 today and 1 U of pRBCs was ordered. She was seen and examined at the bedside in the medical ICU. She reported some episodes of dizziness while Levophed was off though otherwise denied any active complaint s. She continues to have bilateral lower extremity edema though otherwise denied shortness of breath, chest pain, fever, chills, nausea, vomiting, abdominal pain, or diarrhea. Objective - Vital Signs Vital signs: Vital Signs Temp 97.4 F L 09/12/18 08:00 Pulse 89 09/12/18 08:30 Resp 14 09/12/18 08:30 BP 123/63 09/12/18 08:30 Pulse Ox 96 09/12/18 08:30 Intake & Output 09/11/18 09/12/18 09/12/18 18:59 06:59 18:59 Intake Total 374.74 243.422 221.096 Output Total 2200 0 Balance -1825.26 243.422 221.096 Weight 84.4 kg 84.7 kg Intake: IV 340 240 210 0.9 240 240 110 Cefepime 2 gm In Sodium 100 100 Chloride 0.9% 100 ml @ 200 mls/hr IVPB DAILY [facility] Rx#:[id number] Intake, IV Titration 34.74 3.422 11.096 Amount Norepinephrine 4 mg In 34.74 3.422 11.096 Sodium Chloride 0.9% 250 ml @ 0.05 MCG/KG/MIN 15. 554 mls/hr IV .[id number] [facility] Rx#:[id number] Output: Urine 100 0 Hemodialysis 2100 Other: Voiding Method Bedpan # Bowel Movements 1 1 - Exam General: Somewhat ill appearing, in no acute distress, appears stated age HEENT: NC/AT, anicteric sclerae, moist conjunctiva, no lid-lag, PERRLA Cardiovascular: S1/S2 wnl, no murmurs, rubs, or gallops Lungs: Clear to auscultation, normal respiratory effort, no accessory muscle use Abdominal: Soft, non-tender, non-distended, no guarding, rebound, or rigidity Skin: Warm, dry Extremities: Anasarca, no contractures Psychiatric: Alert and oriented to person, place and time, appropriate affect Neuro: CN II-XII grossly intact, Strength 5/5 in all 4 extremities, Speech intact, Sensation to light touch grossly intact throughout - Labs CBC & Chem 7: 09/12/18 05:32 09/12/18 05:32 Labs: Abnormal Lab Results - Last 24 Hours (Table) 09/07/18 09/09/18 09/12/18 Range/Units 05:56 17:04 05:32 WBC 1.8 L (3.8-10.6) k/uL RBC 2.43 L (3.80-5.40) m/uL Hgb 6.8 L* (11.4-16.0) gm/dL Hct 22.0 L (34.0-46.0) % RDW 18.6 H (11.5-15.5) % Plt Count 47 L (150-450) k/uL Sodium (137-145) mmol/L BUN (7-17) mg/dL Creatinine (0.52-1.04) mg/dL Glucose (74-99) mg/dL Calcium (8.4-10.2) mg/dL Albumin (PEP) 2.15 L (3.80-4.90) g/dL Amqkc-6-Kmvdwcyxd 0.74 H (0.10-0.40) g/dL Uvsbw-8-Dqljhvszm 0.59 L (0.60-1.00) g/dL Beta Globulins 0.31 L (0.60-1.30) g/dL Gamma Globulins 0.12 L (0.70-1.50) g/dL RBC Folate 941 H (280 - 791) ng/mL 09/12/18 Range/Units 05:32 WBC (3.8-10.6) k/uL RBC (3.80-5.40) m/uL Hgb (11.4-16.0) gm/dL Hct (34.0-46.0) % RDW (11.5-15.5) % Plt Count (150-450) k/uL Sodium 131 L (137-145) mmol/L BUN 51 H (7-17) mg/dL Creatinine 2.46 H (0.52-1.04) mg/dL Glucose 122 H (74-99) mg/dL Calcium 7.9 L (8.4-10.2) mg/dL Albumin (PEP) (3.80-4.90) g/dL Eaoei-2-Kmyvkwsvu (0.10-0.40) g/dL Gzsbw-4-Dytotelus (0.60-1.00) g/dL Beta Globulins (0.60-1.30) g/dL Gamma Globulins (0.70-1.50) g/dL RBC Folate (280 - 791) ng/mL Microbiology - Last 24 Hours (Table) 09/07/18 11:15 Blood Culture - Preliminary Blood No Growth after 96 hours 09/08/18 07:45 Blood Culture - Preliminary Blood No Growth after 72 hours Assessment and Plan Plan: Presyncope, likely secondary to bactaremia and septic shock (Providencia w/ Enterobacter in Urine -- suspected to be same bacteria) -Tolerated 12 hours without Levophed yesterday -Continue w/ Cortef and Midodrine -C/w Levothyroxine -ID following, recs apprciated -C/w Cefepime 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, currently HD dependent -Nephrology following -Undergoing ultrafiltration -Daily weights -I/Os -Monitor CMP Anemia, likely chronic disease vs secondary to Chemotherapy -S/p 1 U of pRBC today -Iron, B12, and Folate blood work reviewed Thrombocytopenia -Likely secondary to Chemo and Abx use -Monitor CBC -IPCDs Multiple myeloma -Oncology following DVT prophylaxis -IPCDs Discussed with: Patient, , RN Anticipated discharge date: 3-[address]: Home A total of 35 minutes was spent on the care of this complex patient more than 50% of the time was spent in counseling and care coordination.
--- NOTE | 2018-09-12 11:17 | CDI ---
Documentation Clarification Form Date: 09/12/2018 11:00:49 AM From: Maggi [email or web address] cordova, CCDS Admit Date: 09/06/2018 4:03:00 PM Patient Name: Oneida Styles Visit Number: [id number] Discharge Date: ATTENTION: The Clinical Documentation Specialists (CDI) and [facility] Coding Staff appreciate your assistance in clarifying documentation. Please respond to the clarification below the line at the bottom and electronically sign. The CDI & [facility] Coding staff will review the response and follow-up if needed. Please note: Queries are made part of the Legal Health Record. If you have any questions, please contact the author of this message via ITS. Dr. Melvin Toribio: Per the pulmonary/critical care consult & subsequent progress notes: "Diastolic congestive heart failure most likely secondary to infiltrative cardiomyopathy related to myeloma and amyloidosis." History/Risk Factors: CHF, Hypertension, Multiple Myeloma on chemotherapy, DM hemodialysis dependent, CKD stage IV, Moderate to Severe Regurgitation, Chronic anemia, Generalized anxiety disorder, Hypothyroidism, Hyperlipidemia. Clinical Indicators: Presented after syncopal event at home, low BP, given fluids in ER, started on IV SoluCortef & Midrin. Remained hypotensive. Also increased SOB. VS on admission: T 98.8, P 71, R 16 - 22, BP 81/43, 72/40, 70/36; PO 97 ra BNP: 150,000 Echocardiogram Results: systolic normal w/EF 55-60%, severe LVH, Mod-severe MR, Mod TR, Mod-severe pulmonary hypertension, small generalized pericardial effusion. Chest X Ray 09/06: Right basilar infiltrate persists, correlate for pneumonia or atelectasis. 09/07 CXR: Worsening small right > left pleural effusions. Correlate for CHF exacerbation or worsening fluid overload. 09/09 CXR: Mild changes of CHF. Treatment: IV fluid bolus, IV SoluCortef, IV Zosyn, IV Narcan, IV Rocephin, IV Lasix (09/07) In your professional opinion, can you please clarify the acuity and type of CHF if known & if acute or acute on chronic was this condition present on admission? Diastolic Heart Failure: o Acute o Chronic o Acute on Chronic o Unable to Determine o Other, please specify (Last Revision: May 2017) MTDD
--- NOTE | 2018-09-12 11:38 | P.PN ---
Progress Note - Text Progress Note Date: 09/12/18 patient had chronic diastolic chf,for documentation hank
[2018-09-12] MEDS: CHOLESTYRAMINE (WITH SUGAR) 4 GM PACKET PO SCH ×3 (12:42→21:10)
--- NOTE | 2018-09-12 14:26 | P.PN ---
Subjective Progress Note Date: 09/12/18 Principal diagnosis: Acute gram-negative sepsis and septic shock. With gram-negative bacteremia 58-year-old female patient with known history of multiple myeloma and amyloidosis and End stage renal disease is currently on hemodialysis. The patient also has infiltrative cardiomyopathy with diastolic dysfunction and a preserved LV function. The patient is on hemodialysis for the time being 3 times a week and has last hemodialysis session was 2 days ago. The patient came into the emergency department after being discharged from [facility] approximately 5 days ago. The patient wasn't [facility] meeting with complications of myeloma and renal failure between 08/09/2018 and 09/02/2018. During this time the patient was started on systemic chemotherapy with a combination of c yclophosphamide, Velcade and Decadron. She opted to continue her treatment locally with Dr. Hernandez. Patient came into the ED because of generalized weakness and hypotension and near syncope. As mentioned her last chemo was 5 days ago. She was getting progressively more weak. Acting out of ordinary last night and somewhat confused. She was having lightheadedness and some degree of shortness of breath and in his edema all over especially in lower extremities. The patient was also having diarrhea over the past 2-3 days. No chest pain. Initial systolic blood pressure was in the low 80s. Upon arrival to the emergency department the patient was afebrile. The systolic blood pressure was recorded to be as low as 70 with diastolic of 36. The patient was given a total of 2 L of IV fluid. The patient following that improved. Nevertheless, based on the extensive surgery. Volume overload, total decided not to give her any further fluids. Nephrology was involved in the case and the patient will be started on hemodialysis. Meanwhile, it was advised for this patient to moved to the ICU for any pressor treatment if needed should he develop any hypotension. Patient's white cell count is at 5.5. The patient seemed was at 7.4. Renal function shows a BUN of 51 with a creatinine of 2.7. The troponin was not measures. Lactic acid level is at 2.0. ProBNP level is 150,000. The chest x-ray shows chronic right basilar infiltration/atelectasis. Note that this patient typically runs a low blood pressure. She is on midodrine outpatient basis 10 mg by mouth 3 times a day. On 09/07/2018 the patient is awake and alert. She has no specific complaints. She has still increased edema lower extremities. The blood cultures showing gram-negative rods and final cultures sensitivities are still pending. The patient underwent hemodialysis yesterday and during the last as the patient required pressors in the form of norepinephrine infusion which is running at a very low-dose for now. Her systolic blood pressures are low 80s. She is asymptomatic with her low blood pressure. Urine output is almost not present. The patient was seen by nephrology. IV Lasix was given to generate some urine output. The patient was also placed on IV antibiotics and currently she is on IV Rocephin. She is also on midodrine 10 mg by mouth 3 times a day. Chest x- ray shows some increased vascular congestion and right-sided pleural effusion more than left. No altered mentation. No headache. No chest pain. No other significant events overnight. The diarrhea has subsided. On 09/08/2018 I'm seeing this patient for a follow-up. The patient is still having issues with blood pressure. She is on low-dose levo fed. Blood culture came back positive for prevention and the suspected source is the urinary tract. The patient is currently on IV cefepime. The patient underwent hemodialysis today. No major issues with blood pressure hypotension. The dialysis catheter site is dry clean and intact. Cultures of been sent from the catheter and the urine. The patient has no new complaints. She is quite weak. She is lethargic. She has increased lower extremities edema. She is on IV Lasix. Her urine output is minimal. No nausea. No vomiting. No abdominal pain. Oral intake is diminished and the patient is not taking her full dietary requirements. Seconds at 8.5. Rest of the blood work and electrodes are all within normal limits. TSH was at 9.9 and the Synthroid dose has been modified. On 09/09/2018 the patient seems to be much improved compared to yesterday. Her last hemodialysis session was yesterday and this morning she looks to be much more alert and awake and interactive. No fever or chills. She is still on 1 g per minute of norepinephrine infusion for blood pressure control. The patient is on IV cefepime. The blood culture was positive for procidentia and the urine culture was positive for Enterobacter. The cultures obtained from the catheter is been negative. The patient is doing well. No nausea. No vomiting. She has developed increased edema in the upper and lower extremity which is chronic. She is receiving still IV Lasix. She was able to ambulate in the hallway. She is on stress dose hydrocortisone. No other complaints or any other issues over the past 24 hours. No altered mentation. No nausea. No vomiting. No abdominal pain. Was reevaluated today on 09/11/2018, patient remains on hemodialysis, improving, remains on a very small tiny dose of 2 mcg/m of norepinephrine, she is also on IV cefepime for her positive blood cultures showing providentia and Enterobacter. The most likely source of her infection is likely urine unless proven otherwise. Clinically the patient is feeling better, breathing easier, denies any pain, denies any shortness of breath, she feels a bit lightheaded. She remains on stress doses of hydrocortisone. WBC count is 2.5 hemoglobin is 7.4. Electrolytes are relatively normal. BUN is 66 creatinine 3.17. Reevaluated today on 09/12/2018, patient developed hypotension early this morning , had to be placed back on norepinephrine. Remains on broad-spectrum antibiotics for positive blood cultures/remains on cefepime. Patient is receiving hemodialysis again today, and she seems to be tolerating the hemodialysis well. Denies any cough no wheezing no shortness of breath no chest pain, she does feel generally weak. Chest x-ray from yesterday showed mostly fluid overload with pulmonary vascular congestion, right and small pleural effusions noted. No chest x-ray done today. Objective - Vital Signs Vital signs: Vital Signs Temp 97.5 F L 09/12/18 13:00 Pulse 82 09/12/18 14:00 Resp 17 09/12/18 14:00 BP 93/61 09/12/18 14:00 Pulse Ox 97 09/12/18 14:00 Intake & Output 09/11/18 09/12/18 09/12/18 18:59 06:59 18:59 Intake Total 374.74 016.558 9219.467 Output Total 2200 0 2600 Balance -1825.26 243.422 -1340.533 Weight 84.4 kg 84.7 kg Intake: IV 340 240 290 0.9 240 240 190 Cefepime 2 gm In Sodium 100 100 Chloride 0.9% 100 ml @ 200 mls/hr IVPB DAILY [facility] Rx#:[id number] Intake, IV Titration 34.74 3.422 59.467 Amount Norepinephrine 4 mg In 34.74 3.422 59.467 Sodium Chloride 0.9% 250 ml @ 0.05 MCG/KG/MIN 15. 554 mls/hr IV .[id number] [facility] Rx#:[id number] Blood Product 310 Rc As-1 Unit 310 [id number] Hemodialysis 600 Output: Urine 100 0 Hemodialysis 2100 2600 Other: Voiding Method Bedpan Bedpan # Bowel Movements 1 1 - Exam Physical Exam: Revealed a 58-year-old pleasant, in no distress. Head: Atraumatic, normocephalic. HEENT:[Neck is supple.] [No neck masses.] [No thyromegaly.] [No JVD.] PERRLA, EOMI, no icterus. Chest: [Clear throughout, no crackles, no rhonchi, no wheezes.] Cardiac Exam: [Normal S1 and S2, no S3 gallop, no murmur.] Abdomen: [Soft, nontender, no megaly, no rebound, no guarding, normal bowel sounds.] Extremities: [No clubbing, 1+ bipedal edema, no cyanosis.] Neurological Exam: [No focal neurologic deficit.] Alert oriented 3. Skin: No rashes. Psychiatric: Normal mood affect and normal mental status examination. - Labs CBC & Chem 7: 09/12/18 05:32 09/12/18 05:32 Labs: Abnormal Lab Results - Last 24 Hours (Table) 09/12/18 09/12/18 09/12/18 Range/Units 05:32 05:32 05:32 WBC 1.8 L (3.8-10.6) k/uL RBC 2.43 L (3.80-5.40) m/uL Hgb 6.8 L* (11.4-16.0) gm/dL Hct 22.0 L (34.0-46.0) % RDW 18.6 H (11.5-15.5) % Plt Count 47 L (150-450) k/uL Sodium 131 L (137-145) mmol/L BUN 51 H (7-17) mg/dL Creatinine 2.46 H (0.52-1.04) mg/dL Glucose 122 H (74-99) mg/dL Calcium 7.9 L (8.4-10.2) mg/dL Crossmatch See Detail Microbiology - Last 24 Hours (Table) 09/07/18 11:15 Blood Culture - Preliminary Blood No Growth after 120 hours 09/08/18 07:45 Blood Culture - Preliminary Blood No Growth after 96 hours Assessment and Plan Assessment: Impression: Hypotension secondary to sepsis and septic shock, also related to hypovolemia, Multiple myeloma recently started on systemic chemotherapy with Cytoxan and Decadron and Velcade. Patient has light chain disease. Chronic kidney disease secondary to multiple myeloma, presently on hemodialysis. Chronic Diastolic congestive heart failure most likely secondary to infiltrative cardiomyopathy related to myeloma and amyloidosis. This is a chronic process. Moderate to severe mitral regurgitation Anasarca and extensive lower extremity edema, will likely improve with dialysis and ultrafiltration. Benign essential hypertension Chronic anemia Generalized anxiety disorder Hypothyroidism on replacement therapy Recommendation: Continue IV cefepime, continue and titrate norepinephrine to maintain adequate mean arterial pressure in the 60s. Continue hemodialysis and ultrafiltration, hemodynamic support, continue antibiotics for her underlying sepsis. We will continue to watch the patient in the ICU. Prognosis remains fairly guarded. We'll continue to follow. Time with Patient: Less than 30
--- NOTE | 2018-09-12 14:40 | P.PN ---
Subjective Progress Note Date: 09/12/18 This is a 58-year-old female with history of multiple myeloma, restrictive cardiomyopathy, and associated mitral regurgitation. This patient has received chemotherapy and has been in this hospital for several days. Patient has had episodes of hypotension requiring Levophed. This morning patient became h ypotensive after stopping the Levophed. She is restarted on Levophed and apparently was found to be tachycardic. She was also anemic with hemoglobin in the range of 6.8. She received one unit of blood. At the time of my examination patient seemed to be comfortable. Her heart rate has come down to 80s. She denies any chest pain or shortness of breath. She is on dialysis. Also. Her EKG showed episodes of sinus tachycardia and some APCs. No arrhythmias are detected. There apparently was some episodes where she might be going into atrial fibrillation but none documented. We'll continue current medical therapy and follow her closely. Objective - Vital Signs Vital signs: Vital Signs Temp 97.5 F L 09/12/18 13:00 Pulse 82 09/12/18 14:00 Resp 17 09/12/18 14:00 BP 93/61 09/12/18 14:00 Pulse Ox 97 09/12/18 14:00 Intake & Output 09/11/18 09/12/18 09/12/18 18:59 06:59 18:59 Intake Total 374.74 908.168 1657.467 Output Total 2200 0 2600 Balance -1825.26 243.422 -1340.533 Weight 84.4 kg 84.7 kg Intake: IV 340 240 290 0.9 240 240 190 Cefepime 2 gm In Sodium 100 100 Chloride 0.9% 100 ml @ 200 mls/hr IVPB DAILY [facility] Rx#:[id number] Intake, IV Titration 34.74 3.422 59.467 Amount Norepinephrine 4 mg In 34.74 3.422 59.467 Sodium Chloride 0.9% 250 ml @ 0.05 MCG/KG/MIN 15. 554 mls/hr IV .[id number] [facility] Rx#:[id number] Blood Product 310 Rc As-1 Unit 310 [id number] Hemodialysis 600 Output: Urine 100 0 Hemodialysis 2100 2600 Other: Voiding Method Bedpan Bedpan # Bowel Movements 1 1 - Exam GENERAL EXAM: Patient is alert and oriented and doesn't appear to be in any acute distress HEENT: Normocephalic. Normal reaction of pupils, equal size, normal range of extraocular motion. No erythema or exudates in the throat. NECK: No masses, no nuchal rigidity. CHEST: No chest wall deformity. LUNGS: Diminished breath sounds at both bases HEART: S1 and S2 normal with no audible mumurs or gallops. Regular rhythm, femorals equal on both sides.. ABDOMEN: No hepatosplenomegaly, normal bowel sounds, no guarding or rigidity. SKIN: No rashes CENTRAL NERVOUS SYSTEM: No focal deficits. EXTREMITIES: No cyanosis, clubbing or edema. - Labs CBC & Chem 7: 09/12/18 05:32 09/12/18 05:32 Labs: Abnormal Lab Results - Last 24 Hours (Table) 09/12/18 09/12/18 09/12/18 Range/Units 05:32 05:32 05:32 WBC 1.8 L (3.8-10.6) k/uL RBC 2.43 L (3.80-5.40) m/uL Hgb 6.8 L* (11.4-16.0) gm/dL Hct 22.0 L (34.0-46.0) % RDW 18.6 H (11.5-15.5) % Plt Count 47 L (150-450) k/uL Sodium 131 L (137-145) mmol/L BUN 51 H (7-17) mg/dL Creatinine 2.46 H (0.52-1.04) mg/dL Glucose 122 H (74-99) mg/dL Calcium 7.9 L (8.4-10.2) mg/dL Crossmatch See Detail Microbiology - Last 24 Hours (Table) 09/07/18 11:15 Blood Culture - Preliminary Blood No Growth after 120 hours 09/08/18 07:45 Blood Culture - Preliminary Blood No Growth after 96 hours Assessment and Plan (1) Sinus tachycardia Current Visit: Yes Status: Acute Code(s): R00.0 - TACHYCARDIA, UNSPECIFIED SNOMED Code(s): 43318844 (2) Cardiac amyloidosis Current Visit: Yes Status: Acute Code(s): E85.4 - ORGAN-LIMITED AMYLOIDOSIS; I43 - CARDIOMYOPATHY IN DISEASES CLASSIFIED ELSEWHERE SNOMED Code(s): 43931995 (3) Multiple myeloma Current Visit: Yes Status: Acute Priority: High Code(s): C90.00 - MULTIPLE MYELOMA NOT HAVING ACHIEVED REMISSION SNOMED Code(s): 148887001 (4) Renal failure Current Visit: Yes Status: Acute Code(s): N19 - UNSPECIFIED KIDNEY FAILURE SNOMED Code(s): 13718855 Plan: Patient seemed to be relatively stable at this time. Blood transfusion might have helped the hypotension and tachycardia. We'll continue current medical therapy. We'll follow her as needed
[2018-09-12 15:24] LABS: Anisocytosis Slight; HCT 27.4 % (34.0-46.0); Hypochromasia Slight; MCHC 33.4 g/dL (31.0-37.0); MCV 89.8 fL (80.0-100.0); RBC 3.05 m/uL (3.80-5.40); RDW 17.7 % (11.5-15.5); WBC 2.3 k/uL (3.8-10.6)
[2018-09-12 15:35] LABS: HGB 9.2 gm/dL (11.4-16.0); Platelet Count 47 k/uL (150-450)
--- NOTE | 2018-09-12 18:31 | PN ---
PROGRESS NOTE DATE OF SERVICE: 09/12/2018 REASON FOR FOLLOWUP: Providencia bacteremia with enterobacter UTI. INTERVAL HISTORY: The patient is currently afebrile. The patient has been breathing comfortably. Denies having any chest pain or any cough. No nausea, vomiting, abdominal pain or diarrhea. PHYSICAL EXAMINATION: Blood pressure 100/65 with a pulse of 82, temperature 97.5. She is 97% on room air. General description is a middle-aged female lying in bed in no distress. RESPIRATORY SYSTEM: Unlabored breathing. Clear to auscultation anteriorly. HEART: S1, S2. Regular rate and rhythm. ABDOMEN: Soft. No tenderness. LABS: Hemoglobin is 9.2, white count 2.3. DIAGNOSTIC IMPRESSION AND PLAN: Patient with providencia bacteremia, possibly PermCath-related. Repeat blood culture has been negative, making it rather likely for another clinical focus enterobacter in the urine, currently on cefepime. That will be transitioned to oral Cipro on discharge to finish course of therapy with close outpatient followup. bedside. Questions and concerns were answered. MMODL / IJN: [id number] /
[2018-09-13] MEDS: HYDROCORTISONE SUCCINATE 100 MG/2 ML VIAL IV SCH ×4 (00:17→23:44)
[2018-09-13] MEDS: LEVOTHYROXINE 50 MCG TAB PO SCH (06:08)
[2018-09-13 06:31] LABS: Anisocytosis Slight; HCT 25.7 % (34.0-46.0); HGB 8.1 gm/dL (11.4-16.0); Hypochromasia Slight; MCH 29.4 pg (25.0-35.0); MCHC 31.5 g/dL (31.0-37.0); MCV 93.2 fL (80.0-100.0); Mean Platelet Volume 10.8; Poikilocytosis Slight; RBC 2.76 m/uL (3.80-5.40); RDW 18.8 % (11.5-15.5); WBC 2.5 k/uL (3.8-10.6)
[2018-09-13 06:36] LABS: Calcium 7.8 mg/dL (8.4-10.2); Magnesium 2.1 mg/dL (1.6-2.3); Phosphorus 3.6 mg/dL (2.5-4.5); Potassium 3.8 mmol/L (3.5-5.1)
[2018-09-13 06:42] LABS: Platelet Count 41 k/uL (150-450)
[2018-09-13] MEDS: ALLOPURINOL 100 MG TAB PO SCH (08:52)
[2018-09-13] MEDS: LOPERAMIDE 2 MG CAP PO PRN (08:52)
[2018-09-13] MEDS: ASPIRIN 81 MG PO SCH (08:53)
[2018-09-13] MEDS: MIDODRINE 5 MG TAB PO SCH ×3 (08:53→16:54)
--- NOTE | 2018-09-13 09:29 | P.PN ---
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 The patient was noted to be hypotensive upon EMS arrival. Nephrology and hematology were consulted and recommended 2 L of IV fluids and IV pressor support.The patient was recently hospitalized from 08/09 to 09/02 for myeloma related kidney dysfunction along with cardiology myopathy. She had received chemotherapy and was started on dialysis, along with being diagnosed with C. diff for which she completed a ten-day course of oral vancomycin. The patient was subsequently admitted to the medical ICU and was started on IV pressors. The patient's blood cultures initially grew gram-negative organisms after which infectious disease was consulted and the patient was started on ceftriaxone which was subsequently transitioned to cefepime. The blood culture resulted w/ provdencia as the patient continued to require Levophed. She was resumed on HD (ultrafiltration) as she remained oliguric. She was able to tolerate being off of Levophed for 45 minutes on 09/10 and the Levophed was held upwards of 12 hours on 09/11 after which she was restarted on it due to hypotension. The patient's hgb. The patient's Hgb dropped to 6.8 on 09/12 and 1 U of pRBCs was ordered. She was seen and examined at the bedside in the medical ICU. The patient had episodes of tachycardia yesterday morning after re-initiation of Levophed. She however denied chest pain, SOB, nausea, or vomiting. She further denied abdominal pain, fever, or chills. Objective - Vital Signs Vital signs: Vital Signs Temp 97.4 F L 09/13/18 04:00 Pulse 64 09/13/18 07:00 Resp 12 09/13/18 07:00 BP 95/58 09/13/18 07:00 Pulse Ox 97 09/13/18 07:00 Intake & Output 09/12/18 09/13/18 09/13/18 18:59 06:59 18:59 Intake Total 1386.014 220 20 Output Total 2600 Balance -1213.986 220 20 Weight 84.6 kg Intake: IV 390 220 20 0.9 290 220 20 Cefepime 2 gm In Sodium 100 Chloride 0.9% 100 ml @ 200 mls/hr IVPB DAILY [facility] Rx#:[id number] Intake, IV Titration 86.014 Amount Norepinephrine 4 mg In 86.014 Sodium Chloride 0.9% 250 ml @ 0.05 MCG/KG/MIN 15. 554 mls/hr IV .[id number] [facility] Rx#:[id number] Blood Product 310 Rc As-1 Unit 310 [id number] Hemodialysis 600 Output: Hemodialysis 2600 Other: Voiding Method Bedpan # Bowel Movements 1 1 - Exam General: Somewhat ill appearing, in no acute distress, appears stated age HEENT: NC/AT, anicteric sclerae, moist conjunctiva, no lid-lag, PERRLA Cardiovascular: S1/S2 wnl, no murmurs, rubs, or gallops Lungs: Clear to auscultation, normal respiratory effort, no accessory muscle use Abdominal: Soft, non-tender, non-distended, no guarding, rebound, or rigidity Skin: Warm, dry Extremities: Anasarca, no contractures Psychiatric: Alert and oriented to person, place and time, appropriate affect Neuro: CN II-XII grossly intact, Strength 5/5 in all 4 extremities, Speech intact, Sensation to light touch grossly intact throughout - Labs CBC & Chem 7: 09/13/18 05:41 09/13/18 05:41 Labs: Abnormal Lab Results - Last 24 Hours (Table) 09/12/18 09/12/18 09/13/18 Range/Units 05:32 15:00 05:41 WBC 2.3 L 2.5 L (3.8-10.6) k/uL RBC 3.05 L 2.76 L (3.80-5.40) m/uL Hgb 9.2 L D 8.1 L (11.4-16.0) gm/dL Hct 27.4 L 25.7 L (34.0-46.0) % RDW 17.7 H 18.8 H (11.5-15.5) % Plt Count 47 L 41 L (150-450) k/uL Sodium (137-145) mmol/L BUN (7-17) mg/dL Creatinine (0.52-1.04) mg/dL Glucose (74-99) mg/dL Calcium (8.4-10.2) mg/dL Crossmatch See Detail 09/13/18 Range/Units 05:41 WBC (3.8-10.6) k/uL RBC (3.80-5.40) m/uL Hgb (11.4-16.0) gm/dL Hct (34.0-46.0) % RDW (11.5-15.5) % Plt Count (150-450) k/uL Sodium 134 L (137-145) mmol/L BUN 40 H (7-17) mg/dL Creatinine 2.03 H (0.52-1.04) mg/dL Glucose 114 H (74-99) mg/dL Calcium 7.8 L (8.4-10.2) mg/dL Crossmatch Microbiology - Last 24 Hours (Table) 09/12/18 15:28 Stool Culture - Preliminary Stool 09/07/18 11:15 Blood Culture - Preliminary Blood No Growth after 120 hours 09/08/18 07:45 Blood Culture - Preliminary Blood No Growth after 96 hours Assessment and Plan Plan: Presyncope, likely secondary to bactaremia and septic shock (Providencia w/ Enterobacter in Urine -- suspected to be same bacteria) -Attempt to wean off Levophed -Continue w/ Cortef and Midodrine -C/w Levothyroxine -ID following, recs apprciated -C/w Cefepime 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, currently HD dependent -Nephrology following -Undergoing ultrafiltration -Daily weights -I/Os -Monitor CMP Anemia, likely chronic disease vs secondary to Chemotherapy -S/p 1 U of pRBC on 09/12 -Iron, B12, and Folate blood work reviewed Thrombocytopenia -Likely secondary to Chemo and Abx use -Monitor CBC -IPCDs Multiple myeloma -Oncology following DVT prophylaxis -IPCDs Discussed with: Patient, , RN Anticipated discharge date: 3-[address]: Home A total of 35 minutes was spent on the care of this complex patient more than 50% of the time was spent in counseling and care coordination.
[2018-09-13] MEDS: CHOLESTYRAMINE (WITH SUGAR) 4 GM PACKET PO SCH ×4 (10:14→19:51)
[2018-09-13] MEDS: SEVELAMER 800 MG TAB PO SCH ×3 (11:14→16:55)
--- NOTE | 2018-09-13 11:25 | P.PN ---
Subjective Patient is seen in follow-up for acute kidney injury, currently hemodialysis dependent. She is maintained on hemodialysis on a Tuesday schedule. Currently seen while undergoing hemodialysis. She is off Levophed. She is also receiving IV steroids. She remains oliguric. Blood culture is positive for providencia and urine culture is positive for Enterobacter. Hemoglobin better after blood transfusion. No active bleeding. Vital signs are stable. General: The patient appeared well nourished and normally developed. HEENT: Head exam is unremarkable. Neck is without jugular venous distension. LUNGS: Lungs are clear to auscultation and percussion. Breath sounds decreased. HEART: Rate and Rhythm are regular. First and second heart sounds normal. No murmurs, rubs or gallops. ABDOMEN: Abdominal exam reveals normal bowel sounds. Non-tender and non- distended. EXTREMITITES: 2+ edema. Objective - Vital Signs Vital signs: Vital Signs Temp 97.4 F L 09/13/18 04:00 Pulse 64 09/13/18 07:00 Resp 12 09/13/18 07:00 BP 95/58 09/13/18 07:00 Pulse Ox 97 09/13/18 07:00 Intake & Output 09/12/18 09/13/18 09/13/18 18:59 06:59 18:59 Intake Total 1386.014 220 20 Output Total 2600 Balance -1213.986 220 20 Weight 84.6 kg Intake: IV 390 220 20 0.9 290 220 20 Cefepime 2 gm In Sodium 100 Chloride 0.9% 100 ml @ 200 mls/hr IVPB DAILY [facility] Rx#:[id number] Intake, IV Titration 86.014 Amount Norepinephrine 4 mg In 86.014 Sodium Chloride 0.9% 250 ml @ 0.05 MCG/KG/MIN 15. 554 mls/hr IV .[id number] [facility] Rx#:[id number] Blood Product 310 Rc As-1 Unit 310 [id number] Hemodialysis 600 Output: Hemodialysis 2600 Other: Voiding Method Bedpan # Bowel Movements 1 1 - Labs CBC & Chem 7: 09/13/18 05:41 09/13/18 05:41 Labs: Abnormal Lab Results - Last 24 Hours (Table) 09/12/18 09/12/18 09/13/18 Range/Units 05:32 15:00 05:41 WBC 2.3 L 2.5 L (3.8-10.6) k/uL RBC 3.05 L 2.76 L (3.80-5.40) m/uL Hgb 9.2 L D 8.1 L (11.4-16.0) gm/dL Hct 27.4 L 25.7 L (34.0-46.0) % RDW 17.7 H 18.8 H (11.5-15.5) % Plt Count 47 L 41 L (150-450) k/uL Sodium (137-145) mmol/L BUN (7-17) mg/dL Creatinine (0.52-1.04) mg/dL Glucose (74-99) mg/dL Calcium (8.4-10.2) mg/dL Crossmatch See Detail 09/13/18 Range/Units 05:41 WBC (3.8-10.6) k/uL RBC (3.80-5.40) m/uL Hgb (11.4-16.0) gm/dL Hct (34.0-46.0) % RDW (11.5-15.5) % Plt Count (150-450) k/uL Sodium 134 L (137-145) mmol/L BUN 40 H (7-17) mg/dL Creatinine 2.03 H (0.52-1.04) mg/dL Glucose 114 H (74-99) mg/dL Calcium 7.8 L (8.4-10.2) mg/dL Crossmatch Microbiology - Last 24 Hours (Table) 09/08/18 07:45 Blood Culture - Preliminary Blood No Growth after 120 hours 09/12/18 15:28 Stool Culture - Preliminary Stool 09/07/18 11:15 Blood Culture - Preliminary Blood No Growth after 120 hours Assessment and Plan Plan: Assessment: 1. Acute kidney injury, currently hemodialysis dependent. Etiology is hypotension and multiple myeloma. 2. Hypotension maintained on midodrine as well as steroids. Off Levophed. 3. Volume overload secondary to hypoalbuminemia. She also has underlying infiltrative cardiomyopathy. 4. Hypervolemic hyponatremia. Better. 5. Anemia of chronic kidney disease maintained on Aranesp. Also related to un derlying myeloma. S/p pRBC. No active bleeding. 6. Multiple myeloma. Oncology following. 7. Syncopal episode. Likely related to underlying hypotension. 8. Recent C. diff. s/p oral vancomycin. 9. Sepsis secondary to providencia bacteremia and Enterobacter UTI. On IV antibiotics. Plan: Currently seen while undergoing hemodialysis. Continue with daily dialysis for now mostly for ultrafiltration. Maintain midodrine and IV steroids. IV albumin x 2 doses today.
[2018-09-13] MEDS: FOLIC ACID-VIT B COMPLEX-VIT C 1 CAP PO SCH (11:29)
[2018-09-13] MEDS: SODIUM BICARBONATE TAB 650 MG TAB PO SCH ×3 (11:31→21:00)
[2018-09-13] MEDS: PANTOPRAZOLE 40 MG TABLET PO SCH (11:31)
[2018-09-13] MEDS: CEFEPIME 2 GM in SODIUM CHLORIDE 0.9% 100 ML IVPB SCH (11:31)
[2018-09-13] MEDS: ALBUMIN HUMAN 25% 50 ML in EMPTY BAG 1 BAG IVPB SCH ×4 (12:01→21:00)
--- NOTE | 2018-09-13 12:33 | P.PN ---
Subjective Progress Note Date: 09/13/18 Principal diagnosis: Amyloidisis and Lamda FLC Myeloma COntinues with Diarrhea, increased LE edema and pain and positional hypotension with episodes of confusion Objective - Vital Signs Vital signs: Vital Signs Temp 97.4 F L 09/13/18 04:00 Pulse 64 09/13/18 07:00 Resp 12 09/13/18 07:00 BP 95/58 09/13/18 07:00 Pulse Ox 97 09/13/18 07:00 Intake & Output 09/12/18 09/13/18 09/13/18 18:59 06:59 18:59 Intake Total 1386.014 220 20 Output Total 2600 Balance -1213.986 220 20 Weight 84.6 kg Intake: IV 390 220 20 0.9 290 220 20 Cefepime 2 gm In Sodium 100 Chloride 0.9% 100 ml @ 200 mls/hr IVPB DAILY [facility] Rx#:[id number] Intake, IV Titration 86.014 Amount Norepinephrine 4 mg In 86.014 Sodium Chloride 0.9% 250 ml @ 0.05 MCG/KG/MIN 15. 554 mls/hr IV .[id number] [facility] Rx#:[id number] Blood Product 310 Rc As-1 Unit 310 [id number] Hemodialysis 600 Output: Hemodialysis 2600 Other: Voiding Method Bedpan # Bowel Movements 1 1 - Exam Gen: Alert and oriented Head: NCNT Neck: Supple Lungs: CTA Bilateral Abdomen S?ND EXT 3+ BLE Edema Neuro - Non focal - Labs CBC & Chem 7: 09/13/18 05:41 09/13/18 05:41 Labs: Abnormal Lab Results - Last 24 Hours (Table) 09/12/18 09/12/18 09/13/18 Range/Units 05:32 15:00 05:41 WBC 2.3 L 2.5 L (3.8-10.6) k/uL RBC 3.05 L 2.76 L (3.80-5.40) m/uL Hgb 9.2 L D 8.1 L (11.4-16.0) gm/dL Hct 27.4 L 25.7 L (34.0-46.0) % RDW 17.7 H 18.8 H (11.5-15.5) % Plt Count 47 L 41 L (150-450) k/uL Sodium (137-145) mmol/L BUN (7-17) mg/dL Creatinine (0.52-1.04) mg/dL Glucose (74-99) mg/dL Calcium (8.4-10.2) mg/dL Crossmatch See Detail 09/13/18 Range/Units 05:41 WBC (3.8-10.6) k/uL RBC (3.80-5.40) m/uL Hgb (11.4-16.0) gm/dL Hct (34.0-46.0) % RDW (11.5-15.5) % Plt Count (150-450) k/uL Sodium 134 L (137-145) mmol/L BUN 40 H (7-17) mg/dL Creatinine 2.03 H (0.52-1.04) mg/dL Glucose 114 H (74-99) mg/dL Calcium 7.8 L (8.4-10.2) mg/dL Crossmatch Microbiology - Last 24 Hours (Table) 09/08/18 07:45 Blood Culture - Preliminary Blood No Growth after 120 hours 09/12/18 15:28 Stool Culture - Preliminary Stool 09/07/18 11:15 Blood Culture - Preliminary Blood No Growth after 120 hours Assessment and Plan Plan: Bacteremia Gram Negative Bacilli UTI: - Infectious Disease is following - COntinue antibiotic coverage Multiple myeloma - Diagnosis and treatment as outlined in HPI. Was due to complete cycle 1 of CyBorD this Tuesday, this will be held until infection cleared. 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 Syncopal Episode: - Likely related to Bacteremia and hypotension Hypotension: - Multifactorial; iAmloid of Kidneys, Component bacteremia - Adrenal Insuf ruled out Renal Amyloidosis Nephrology consulted Hyperbilirubinemia: - Likely secondary to Hypotension and medications, shock liver Thrombocytopenia: - Secondary to recent chemotherapu Diarrhea: - Cheeck stool studies - Add questran Plan: - Hold Treatment at this time and continue treatment of infection - Continue intensive supportive care At this time. - Once cleared will restart - Continue care ICU - Transfuse Prbc today with Diaylsis
--- NOTE | 2018-09-13 13:00 | PN ---
PROGRESS NOTE DATE OF SERVICE: 09/13/2018 REASON FOR FOLLOWUP: Providencia bacteremia and Enterobacter UTI. INTERVAL HISTORY: The patient is currently afebrile. Patient has been breathing comfortably. No chest pain or any cough. No abdominal pain. Did have some diarrhea. No nausea, vomiting. PHYSICAL EXAMINATION: Blood pressure 95/50 with a pulse of 54, temperature 98, she is 97% on room air. General description is a middle-aged female, lying in bed in no distress. RESPIRATORY SYSTEM: Unlabored breathing, clear to auscultation anteriorly. HEART: S1, S2. Regular rate and rhythm. ABDOMEN: Soft, no tenderness. LABS: Hemoglobin 8.1, white count 2.5. Stool for C. diff has been negative. BUN of 14, creatinine 0.03. DIAGNOSTIC IMPRESSION AND PLAN: Patient with Providencia bacteremia with concern for possible Perma-Cath related. Blood culture has been negative also with Enterobacter UTI and this patient did have diarrhea, more likely antibiotic associated. He was switched over to oral Cipro and discontinue cefepime and monitor clinical course closely. If diarrhea persists, add Questran for symptomatic relief. MMODL / IJN: [id number] /
[2018-09-13 13:46] LABS: INR 1.1 (<1.2); Prothrombin Time 11.6 sec (9.0-12.0)
--- NOTE | 2018-09-13 14:27 | P.PN ---
Subjective Progress Note Date: 09/13/18 Principal diagnosis: Acute gram-negative sepsis and septic shock. With gram-negative bacteremia 58-year-old female patient with known history of multiple myeloma and amyloidosis and End stage renal disease is currently on hemodialysis. The patient also has infiltrative cardiomyopathy with diastolic dysfunction and a preserved LV function. The patient is on hemodialysis for the time being 3 times a week and has last hemodialysis session was 2 days ago. The patient came into the emergency department after being discharged from [facility] approximately 5 days ago. The patient wasn't [facility] meeting with complications of myeloma and renal failure between 08/09/2018 and 09/02/2018. During this time the patient was started on systemic chemotherapy with a combination of c yclophosphamide, Velcade and Decadron. She opted to continue her treatment locally with Dr. Hernandez. Patient came into the ED because of generalized weakness and hypotension and near syncope. As mentioned her last chemo was 5 days ago. She was getting progressively more weak. Acting out of ordinary last night and somewhat confused. She was having lightheadedness and some degree of shortness of breath and in his edema all over especially in lower extremities. The patient was also having diarrhea over the past 2-3 days. No chest pain. Initial systolic blood pressure was in the low 80s. Upon arrival to the emergency department the patient was afebrile. The systolic blood pressure was recorded to be as low as 70 with diastolic of 36. The patient was given a total of 2 L of IV fluid. The patient following that improved. Nevertheless, based on the extensive surgery. Volume overload, total decided not to give her any further fluids. Nephrology was involved in the case and the patient will be started on hemodialysis. Meanwhile, it was advised for this patient to moved to the ICU for any pressor treatment if needed should he develop any hypotension. Patient's white cell count is at 5.5. The patient seemed was at 7.4. Renal function shows a BUN of 51 with a creatinine of 2.7. The troponin was not measures. Lactic acid level is at 2.0. ProBNP level is 150,000. The chest x-ray shows chronic right basilar infiltration/atelectasis. Note that this patient typically runs a low blood pressure. She is on midodrine outpatient basis 10 mg by mouth 3 times a day. On 09/07/2018 the patient is awake and alert. She has no specific complaints. She has still increased edema lower extremities. The blood cultures showing gram-negative rods and final cultures sensitivities are still pending. The patient underwent hemodialysis yesterday and during the last as the patient required pressors in the form of norepinephrine infusion which is running at a very low-dose for now. Her systolic blood pressures are low 80s. She is asymptomatic with her low blood pressure. Urine output is almost not present. The patient was seen by nephrology. IV Lasix was given to generate some urine output. The patient was also placed on IV antibiotics and currently she is on IV Rocephin. She is also on midodrine 10 mg by mouth 3 times a day. Chest x- ray shows some increased vascular congestion and right-sided pleural effusion more than left. No altered mentation. No headache. No chest pain. No other significant events overnight. The diarrhea has subsided. On 09/08/2018 I'm seeing this patient for a follow-up. The patient is still having issues with blood pressure. She is on low-dose levo fed. Blood culture came back positive for prevention and the suspected source is the urinary tract. The patient is currently on IV cefepime. The patient underwent hemodialysis today. No major issues with blood pressure hypotension. The dialysis catheter site is dry clean and intact. Cultures of been sent from the catheter and the urine. The patient has no new complaints. She is quite weak. She is lethargic. She has increased lower extremities edema. She is on IV Lasix. Her urine output is minimal. No nausea. No vomiting. No abdominal pain. Oral intake is diminished and the patient is not taking her full dietary requirements. Seconds at 8.5. Rest of the blood work and electrodes are all within normal limits. TSH was at 9.9 and the Synthroid dose has been modified. On 09/09/2018 the patient seems to be much improved compared to yesterday. Her last hemodialysis session was yesterday and this morning she looks to be much more alert and awake and interactive. No fever or chills. She is still on 1 g per minute of norepinephrine infusion for blood pressure control. The patient is on IV cefepime. The blood culture was positive for procidentia and the urine culture was positive for Enterobacter. The cultures obtained from the catheter is been negative. The patient is doing well. No nausea. No vomiting. She has developed increased edema in the upper and lower extremity which is chronic. She is receiving still IV Lasix. She was able to ambulate in the hallway. She is on stress dose hydrocortisone. No other complaints or any other issues over the past 24 hours. No altered mentation. No nausea. No vomiting. No abdominal pain. Was reevaluated today on 09/11/2018, patient remains on hemodialysis, improving, remains on a very small tiny dose of 2 mcg/m of norepinephrine, she is also on IV cefepime for her positive blood cultures showing providentia and Enterobacter. The most likely source of her infection is likely urine unless proven otherwise. Clinically the patient is feeling better, breathing easier, denies any pain, denies any shortness of breath, she feels a bit lightheaded. She remains on stress doses of hydrocortisone. WBC count is 2.5 hemoglobin is 7.4. Electrolytes are relatively normal. BUN is 66 creatinine 3.17. Reevaluated today on 09/12/2018, patient developed hypotension early this morning , had to be placed back on norepinephrine. Remains on broad-spectrum antibiotics for positive blood cultures/remains on cefepime. Patient is receiving hemodialysis again today, and she seems to be tolerating the hemodialysis well. Denies any cough no wheezing no shortness of breath no chest pain, she does feel generally weak. Chest x-ray from yesterday showed mostly fluid overload with pulmonary vascular congestion, right and small pleural effusions noted. No chest x-ray done today. Reevaluated today on 09/13/2018, patient is now off norepinephrine, doing fairly well, blood pressure is marginal, she had hemodialysis earlier today, and it was well-tolerated. Patient is relatively asymptomatic, she feels generally weak however. All labs were reviewed her hemoglobin is 8.1 electrolytes are normal BUN is 40 creatinine 2.03. Potassium is normal. C. difficile screen was negative. Objective - Vital Signs Vital signs: Vital Signs Temp 97.2 F L 09/13/18 14:04 Pulse 74 09/13/18 14:04 Resp 16 09/13/18 14:04 BP 88/56 09/13/18 14:04 Pulse Ox 97 09/13/18 07:00 Intake & Output 09/12/18 09/13/18 09/13/18 18:59 06:59 18:59 Intake Total 1386.014 220 20 Output Total 2600 2000 Balance -1213.986 -1979 Weight 84.6 kg Intake: IV 390 220 20 0.9 290 220 20 Cefepime 2 gm In Sodium 100 Chloride 0.9% 100 ml @ 200 mls/hr IVPB DAILY [facility] Rx#:[id number] Intake, IV Titration 86.014 Amount Norepinephrine 4 mg In 86.014 Sodium Chloride 0.9% 250 ml @ 0.05 MCG/KG/MIN 15. 554 mls/hr IV .[id number] [facility] Rx#:[id number] Blood Product 310 Rc As-1 Unit 310 [id number] Hemodialysis 600 Output: Hemodialysis 2599 1999 Other: Voiding Method Bedpan # Bowel Movements 1 1 - Exam Physical Exam: Revealed a 58-year-old pleasant, in no distress. Head: Atraumatic, normocephalic. HEENT:[Neck is supple.] [No neck masses.] [No thyromegaly.] [No JVD.] PERRLA, EOMI, no icterus. Chest: [Clear throughout, no crackles, no rhonchi, no wheezes.] Cardiac Exam: [Normal S1 and S2, no S3 gallop, no murmur.] Abdomen: [Soft, nontender, no megaly, no rebound, no guarding, normal bowel sounds.] Extremities: [No clubbing, 1+ bipedal edema, no cyanosis.] Neurological Exam: [No focal neurologic deficit.] Alert oriented 3. Skin: No rashes. Psychiatric: Normal mood affect and normal mental status examination. - Labs CBC & Chem 7: 09/13/18 05:41 09/13/18 05:41 Labs: Abnormal Lab Results - Last 24 Hours (Table) 09/12/18 09/13/18 09/13/18 Range/Units 15:00 05:41 05:41 WBC 2.3 L 2.5 L (3.8-10.6) k/uL RBC 3.05 L 2.76 L (3.80-5.40) m/uL Hgb 9.2 L D 8.1 L (11.4-16.0) gm/dL Hct 27.4 L 25.7 L (34.0-46.0) % RDW 17.7 H 18.8 H (11.5-15.5) % Plt Count 47 L 41 L (150-450) k/uL APTT (22.0-30.0) sec Sodium 134 L (137-145) mmol/L BUN 40 H (7-17) mg/dL Creatinine 2.03 H (0.52-1.04) mg/dL Glucose 114 H (74-99) mg/dL Calcium 7.8 L (8.4-10.2) mg/dL 09/13/18 Range/Units 13:15 WBC (3.8-10.6) k/uL RBC (3.80-5.40) m/uL Hgb (11.4-16.0) gm/dL Hct (34.0-46.0) % RDW (11.5-15.5) % Plt Count (150-450) k/uL APTT 32.0 H (22.0-30.0) sec Sodium (137-145) mmol/L BUN (7-17) mg/dL Creatinine (0.52-1.04) mg/dL Glucose (74-99) mg/dL Calcium (8.4-10.2) mg/dL Microbiology - Last 24 Hours (Table) 09/07/18 11:15 Blood Culture - Final Blood No Growth after 144 hours 09/08/18 07:45 Blood Culture - Preliminary Blood No Growth after 120 hours 09/12/18 15:28 Stool Culture - Preliminary Stool Assessment and Plan Assessment: Impression: Hypotension secondary to sepsis and septic shock, also related to hypovolemia, resolved. Patient is off norepinephrine today. Multiple myeloma recently started on systemic chemotherapy with Cytoxan and Decadron and Velcade. Patient has light chain disease. Chronic kidney disease secondary to multiple myeloma, presently on hemodialysis. Chronic Diastolic congestive heart failure most likely secondary to infiltrative cardiomyopathy related to myeloma and amyloidosis. This is a chronic process. Moderate to severe mitral regurgitation Anasarca and extensive lower extremity edema, will likely improve with dialysis and ultrafiltration. Benign essential hypertension Chronic anemia Generalized anxiety disorder Hypothyroidism on replacement therapy Recommendation: Continue IV cefepime, off norepinephrine. Continue hemodialysis and ultrafiltration, continue antibiotics for her underlying sepsis. We will continue to watch the patient in the ICU. For the next 24 hours, consider transfer to a monitor bed once the patient proves to remain hemodynamically stable off norepinephrine for the next 24 hours. Time with Patient: Less than 30
[2018-09-14 05:49] LABS: Anisocytosis Slight; Basophils % (A) 0 %; Eosinophils % (A) 0 %; HCT 23.5 % (34.0-46.0); HGB 7.5 gm/dL (11.4-16.0); Hypochromasia Slight; Lymphocytes # (A) 0.1 k/uL (1.0-4.8); Lymphocytes % (A) 3 %; MCH 28.7 pg (25.0-35.0); MCHC 31.8 g/dL (31.0-37.0); MCV 90.2 fL (80.0-100.0); Mean Platelet Volume 11.7; Monocytes # (A) 0.3 k/uL (0-1.0); Monocytes % (A) 8 %; Neutrophils # (A) 2.6 k/uL (1.3-7.7); Neutrophils % (A) 87 %; Poikilocytosis Slight; RBC 2.61 m/uL (3.80-5.40); RDW 17.6 % (11.5-15.5)
[2018-09-14 05:51] LABS: Platelet Count 41 k/uL (150-450)
[2018-09-14 05:59] LABS: Albumin 2.5 g/dL (3.5-5.0); Calcium 7.9 mg/dL (8.4-10.2); Potassium 3.5 mmol/L (3.5-5.1); Total Bilirubin 1.1 mg/dL (0.2-1.3); Total Protein 4.2 g/dL (6.3-8.2)
[2018-09-14] MEDS: LEVOTHYROXINE 50 MCG TAB PO SCH (06:29)
--- NOTE | 2018-09-14 07:24 | US ---
EXAMINATION TYPE: US venous doppler duplex LE BI DATE OF EXAM: 09/13/2018 8:56 PM COMPARISON: NONE CLINICAL HISTORY: increase pain and le edema. Bilateral leg edema and pain x 6 months. Hx DVT. Pt chavez es aspirin. SIDE PERFORMED: Bilateral TECHNIQUE: The lower extremity deep venous system is examined utilizing real time linear array sonog zack with graded compression, doppler sonography and color-flow sonography. VESSELS IMAGED: External Iliac Vein (EIV) Common Femoral Vein Deep Femoral Vein Greater Saphenous Vein * Femoral Vein (* superficial vessels) Very limited study due to pitting edema and patient's inability to move legs to scan behind knee fo r popliteal vein and prox calf veins. Right Leg: No evidence of DVT in veins imaged from distal fem to EIV, although study is limited. Pt could not tolerate distal femoral vein compression. Hypoechoic areas with hyperechoic centers and vas cularity seen right groin. Largest measures: 4.4 x 0.8 x 0.6 cm. Left Leg: No evidence of DVT in veins imaged from distal fem to EIV, although study is limited. Hypo echoic area with hyperechoic center and vascularity seen left groin measurin.0 x 1.1 x 0.5 cm. Diffuse subcutaneous emphysema is noted. IMPRESSION: 1. No sonographic evidence of deep venous thrombosis within the visualized bilateral lower extremitie s although the examination is limited as the patient could not tolerate compression of the distal fem oral vein on the right. 2. Diffuse subcutaneous edema. 3. Right inguinal adenopathy is again seen with lymph nodes. Somewhat similar to the prior of 9. Again these could be reactive in this patient with recent cellulitis however if there is further c oncern CT the abdomen and pelvis could evaluate for additional sites of adenopathy or could be consid ered.
[2018-09-14] MEDS: CHOLESTYRAMINE (WITH SUGAR) 4 GM PACKET PO SCH ×4 (07:56→22:54)
[2018-09-14] MEDS: MIDODRINE 5 MG TAB PO SCH ×3 (07:56→16:59)
[2018-09-14] MEDS: PANTOPRAZOLE 40 MG TABLET PO SCH (07:56)
[2018-09-14] MEDS: SEVELAMER 800 MG TAB PO SCH ×3 (07:57→16:59)
[2018-09-14] MEDS: SODIUM BICARBONATE TAB 650 MG TAB PO SCH ×3 (07:57→22:54)
[2018-09-14] MEDS: ASPIRIN 81 MG PO SCH (07:57)
[2018-09-14] MEDS: CIPROFLOXACIN HCL 500 MG TAB PO SCH (07:57)
[2018-09-14] MEDS: ALLOPURINOL 100 MG TAB PO SCH (07:58)
[2018-09-14] MEDS: HYDROCORTISONE SUCCINATE 100 MG/2 ML VIAL IV SCH ×3 (07:58→22:54)
[2018-09-14] MEDS: FOLIC ACID-VIT B COMPLEX-VIT C 1 CAP PO SCH (07:58)
[2018-09-14] MEDS ORDERED: POTASSIUM CHLORIDE ER 20 MEQ TAB.ER PO STA (09:41)
--- NOTE | 2018-09-14 10:27 | P.PN ---
Subjective Patient is seen in follow-up for acute kidney injury, currently hemodialysis dependent. She is maintained on hemodialysis on a Tuesday schedule. She has been receiving dialysis on a daily basis for gradual ultrafiltration. Currently seen while undergoing hemodialysis. She is off Levophed. She is also receiving IV steroids. She remains oliguric. Blood culture is positive for providencia and urine culture is positive for Ent erobacter. Hemoglobin better after blood transfusion. No active bleeding. Vital signs are stable. General: The patient appeared well nourished and normally developed. HEENT: Head exam is unremarkable. Neck is without jugular venous distension. LUNGS: Lungs are clear to auscultation and percussion. Breath sounds decreased. HEART: Rate and Rhythm are regular. First and second heart sounds normal. No murmurs, rubs or gallops. ABDOMEN: Abdominal exam reveals normal bowel sounds. Non-tender and non- distended. EXTREMITITES: 2+ edema. Objective - Vital Signs Vital signs: Vital Signs Temp 97.7 F 09/14/18 08:00 Pulse 68 09/14/18 10:00 Resp 13 09/14/18 10:00 BP 90/62 09/14/18 10:00 Pulse Ox 97 09/14/18 10:00 Intake & Output 09/13/18 09/14/18 09/14/18 18:59 06:59 18:59 Intake Total 140 260 280 Output Total 2000 Balance -1860 260 280 Weight 85 kg Intake: IV 140 210 40 0.9 140 110 40 Albumin Human 25% 50 ml 100 In Empty Bag 1 bag @ 50 mls/hr IVPB Q12H [facility] Rx#: [id number] Oral 50 240 Output: Urine 0 Hemodialysis 1999 Other: Voiding Method Bedpan # Voids 1 # Bowel Movements 1 - Labs CBC & Chem 7: 09/14/18 05:28 09/14/18 05:28 Labs: Abnormal Lab Results - Last 24 Hours (Table) 09/13/18 09/14/18 09/14/18 Range/Units 13:15 05:28 05:28 WBC 3.0 L (3.8-10.6) k/uL RBC 2.61 L (3.80-5.40) m/uL Hgb 7.5 L (11.4-16.0) gm/dL Hct 23.5 L (34.0-46.0) % RDW 17.6 H (11.5-15.5) % Plt Count 41 L (150-450) k/uL Lymphocytes # 0.1 L (1.0-4.8) k/uL APTT 32.0 H (22.0-30.0) sec Sodium 133 L (137-145) mmol/L Carbon Dioxide 20 L (22-30) mmol/L BUN 35 H (7-17) mg/dL Creatinine 2.04 H (0.52-1.04) mg/dL Glucose 103 H (74-99) mg/dL Calcium 7.9 L (8.4-10.2) mg/dL Alkaline Phosphatase 366 H (38-126) U/L Total Protein 4.2 L (6.3-8.2) g/dL Albumin 2.5 L (3.5-5.0) g/dL Microbiology - Last 24 Hours (Table) 09/07/18 11:15 Blood Culture - Final Blood No Growth after 144 hours 09/08/18 07:45 Blood Culture - Preliminary Blood No Growth after 120 hours Assessment and Plan Plan: Assessment: 1. Acute kidney injury, currently hemodialysis dependent. Etiology is hypotension and multiple myeloma. 2. Hypotension maintained on midodrine as well as steroids. Off Levophed. 3. Volume overload secondary to hypoalbuminemia. She also has underlying infiltrative cardiomyopathy. 4. Hypervolemic hyponatremia. Stable. 5. Anemia of chronic kidney disease maintained on Aranesp. Also related to underlying myeloma. S/p pRBC. No active bleeding. 6. Multiple myeloma. Oncology following. 7. Syncopal episode. Likely related to underlying hypotension. 8. Recent C. diff. s/p oral vancomycin. 9. Sepsis secondary to providencia bacteremia and Enterobacter UTI. On IV antibiotics. Plan: Currently seen while undergoing hemodialysis. Continue with daily dialysis for now mostly for gradual ultrafiltration. Maintain midodrine and IV steroids.
[2018-09-14 10:52] VITALS: BMI 30.2
--- NOTE | 2018-09-14 11:18 | P.PN ---
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 The patient was noted to be hypotensive upon EMS arrival. Nephrology and hematology were consulted and recommended 2 L of IV fluids and IV pressor support.The patient was recently hospitalized from 08/09 to 09/02 for myeloma related kidney dysfunction along with cardiology myopathy. She had received chemotherapy and was started on dialysis, along with being diagnosed with C. diff for which she completed a ten-day course of oral vancomycin. The patient was subsequently admitted to the medical ICU and was started on IV pressors. The patient's blood cultures initially grew gram-negative organisms after which infectious disease was consulted and the patient was started on ceftriaxone which was subsequently transitioned to cefepime. The blood culture resulted w/ provdencia as the patient continued to require Levophed. She was resumed on HD (ultrafiltration) as she remained oliguric. She was able to tolerate being off of Levophed for 45 minutes on 09/10 and the Levophed was held upwards of 12 hours on 09/11 after which she was restarted on it due to hypotension. The patient's hgb. The patient's Hgb dropped to 6.8 on 09/12 and 1 U of pRBCs was ordered. The patient's levophed requirements gradually decreased and she was taken off the drip on 09/12/18 @ 5 pm. The patient however had an episode of near syncope as when she attempted to come out of her bed yesterday with physical therapy. The patient did not have a fall or trauma. She was seen and examined at the bedside in the medical ICU. Patient was in good spirits and denied any active complaints. She denied chest pain, shortness of breath, nausea, vomiting, fever, or chills. She continues to have anasarca, is oliguric, and is undergoing daily hemodialysis via ultrafiltration. Objective - Vital Signs Vital signs: Vital Signs Temp 97.7 F 09/14/18 08:00 Pulse 70 09/14/18 11:00 Resp 18 09/14/18 11:00 BP 83/44 09/14/18 11:00 Pulse Ox 96 09/14/18 11:00 Intake & Output 09/13/18 09/14/18 09/14/18 18:59 06:59 18:59 Intake Total 140 260 290 Output Total 1999 Balance -1860 260 290 Weight 85 kg 85 kg Intake: IV 140 210 50 0.9 140 110 50 Albumin Human 25% 50 ml 100 In Empty Bag 1 bag @ 50 mls/hr IVPB Q12H [facility] Rx#: [id number] Oral 50 240 Output: Urine 0 Hemodialysis 1999 Other: Voiding Method Bedpan # Voids 1 # Bowel Movements 1 - Exam General: Somewhat ill appearing, in no acute distress, appears stated age HEENT: NC/AT, anicteric sclerae, moist conjunctiva, no lid-lag, PERRLA Cardiovascular: S1/S2 wnl, no murmurs, rubs, or gallops Lungs: Mild bibasilar rales, normal respiratory effort, no accessory muscle use Abdominal: Soft, non-tender, non-distended, no guarding, rebound, or rigidity Skin: Warm, dry Extremities: Anasarca, no contractures Psychiatric: Alert and oriented to person, place and time, appropriate affect Neuro: CN II-XII grossly intact, Strength 5/5 in all 4 extremities, Speech intact, Sensation to light touch grossly intact throughout - Labs CBC & Chem 7: 09/14/18 05:28 09/14/18 05:28 Labs: Abnormal Lab Results - Last 24 Hours (Table) 09/13/18 09/14/18 09/14/18 Range/Units 13:15 05:28 05:28 WBC 3.0 L (3.8-10.6) k/uL RBC 2.61 L (3.80-5.40) m/uL Hgb 7.5 L (11.4-16.0) gm/dL Hct 23.5 L (34.0-46.0) % RDW 17.6 H (11.5-15.5) % Plt Count 41 L (150-450) k/uL Lymphocytes # 0.1 L (1.0-4.8) k/uL APTT 32.0 H (22.0-30.0) sec Sodium 133 L (137-145) mmol/L Carbon Dioxide 20 L (22-30) mmol/L BUN 35 H (7-17) mg/dL Creatinine 2.04 H (0.52-1.04) mg/dL Glucose 103 H (74-99) mg/dL Calcium 7.9 L (8.4-10.2) mg/dL Alkaline Phosphatase 366 H (38-126) U/L Total Protein 4.2 L (6.3-8.2) g/dL Albumin 2.5 L (3.5-5.0) g/dL Microbiology - Last 24 Hours (Table) 09/07/18 11:15 Blood Culture - Final Blood No Growth after 144 hours 09/08/18 07:45 Blood Culture - Preliminary Blood No Growth after 120 hours Assessment and Plan Plan: Presyncope, likely secondary to bactaremia and septic shock (Providencia w/ Enterobacter in Urine -- suspected to be same bacteria) -The patient continues to have orthostatic hypotension while off Levophed -Advised the nursing staff and the patient to gradually attempt to get out of bed -The nursing staff will adjust the patient's bed into a sitting position -Continue w/ Cortef and Midodrine -C/w Levothyroxine -ID following, recs apprciated -C/w Cefepime 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, currently HD dependent -Nephrology following -Undergoing ultrafiltration -Daily weights -I/Os -Monitor CMP Anemia, likely chronic disease vs secondary to Chemotherapy -S/p 1 U of pRBC on 09/12 -Iron, B12, and Folate blood work reviewed Thrombocytopenia -Likely secondary to Chemo and Abx use -Monitor CBC -IPCDs Multiple myeloma -Oncology following DVT prophylaxis -IPCDs Discussed with: Patient, , RN Anticipated discharge date: 3-[address]: Home A total of 35 minutes was spent on the care of this complex patient more than 50% of the time was spent in counseling and care coordination.
[2018-09-14] MEDS: DARBEPOETIN ALFA 40 MCG/0.4 ML SYRINGE SQ SCH (12:02)
--- NOTE | 2018-09-14 13:38 | P.PN ---
Subjective Progress Note Date: 09/14/18 Principal diagnosis: Amyloidisis and Lamda FLC Myeloma Questionable arrythymia during dialysis yesterday, periods of confusion. CBC is stable. Continues on antibiotics. Inquiring when to restart treatment for myeloma, explained when cleared from Infectious disease, cardiology. Patient is having difficult time ambulating or changing positions without becoming even more hypotensive. Objective - Vital Signs Vital signs: Vital Signs Temp 97.4 F L 09/14/18 12:00 Pulse 68 09/14/18 12:00 Resp 17 09/14/18 12:00 BP 96/60 09/14/18 12:00 Pulse Ox 97 09/14/18 12:00 Intake & Output 09/13/18 09/14/18 09/14/18 18:59 06:59 18:59 Intake Total 140 260 420 Output Total 1999 Balance -1860 260 420 Weight 85 kg 85 kg Intake: IV 140 210 60 0.9 140 110 60 Albumin Human 25% 50 ml 100 In Empty Bag 1 bag @ 50 mls/hr IVPB Q12H [facility] Rx#: [id number] Oral 50 360 Output: Urine 0 Hemodialysis 1999 Other: Voiding Method Bedpan # Voids 1 # Bowel Movements 1 - Exam Gen: Alert and oriented Head: NCNT Neck: Supple Lungs: CTA Bilateral Abdomen S?ND EXT 3+ BLE Edema Neuro - Non focal - Labs CBC & Chem 7: 09/14/18 05:28 09/14/18 05:28 Labs: Abnormal Lab Results - Last 24 Hours (Table) 09/13/18 09/14/18 09/14/18 Range/Units 13:15 05:28 05:28 WBC 3.0 L (3.8-10.6) k/uL RBC 2.61 L (3.80-5.40) m/uL Hgb 7.5 L (11.4-16.0) gm/dL Hct 23.5 L (34.0-46.0) % RDW 17.6 H (11.5-15.5) % Plt Count 41 L (150-450) k/uL Lymphocytes # 0.1 L (1.0-4.8) k/uL APTT 32.0 H (22.0-30.0) sec Sodium 133 L (137-145) mmol/L Carbon Dioxide 20 L (22-30) mmol/L BUN 35 H (7-17) mg/dL Creatinine 2.04 H (0.52-1.04) mg/dL Glucose 103 H (74-99) mg/dL Calcium 7.9 L (8.4-10.2) mg/dL Alkaline Phosphatase 366 H (38-126) U/L Total Protein 4.2 L (6.3-8.2) g/dL Albumin 2.5 L (3.5-5.0) g/dL Microbiology - Last 24 Hours (Table) 09/08/18 07:45 Blood Culture - Final Blood No Growth after 144 hours 09/07/18 11:15 Blood Culture - Final Blood No Growth after 144 hours Assessment and Plan Plan: Bacteremia Gram Negative Bacilli UTI: - Infectious Disease is following - COntinue antibiotic coverage Multiple myeloma - Diagnosis and treatment as outlined in HPI. Was due to complete cycle 1 of CyBorD this Tuesday, this will be held until infection cleared. 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 Syncopal Episode: - Likely related to Bacteremia and hypotension Hypotension: - Multifactorial; iAmloid of Kidneys, Component bacteremia - Adrenal Insuf ruled out Renal Amyloidosis Nephrology consulted Hyperbilirubinemia: - Likely secondary to Hypotension and medications, shock liver Thrombocytopenia: - Secondary to recent chemotherapu Diarrhea: - Check stool studies - C-diff neg - Add questran Plan: - Hold Treatment at this time and continue treatment of infection - Await ID clearance to restart chemo - Continue aggressive supportive care
--- NOTE | 2018-09-14 14:00 | P.PN ---
Subjective Progress Note Date: 09/14/18 Principal diagnosis: Acute gram-negative sepsis and septic shock. With gram-negative bacteremia 58-year-old female patient with known history of multiple myeloma and amyloidosis and End stage renal disease is currently on hemodialysis. The patient also has infiltrative cardiomyopathy with diastolic dysfunction and a preserved LV function. The patient is on hemodialysis for the time being 3 times a week and has last hemodialysis session was 2 days ago. The patient came into the emergency department after being discharged from [facility] approximately 5 days ago. The patient wasn't [facility] meeting with complications of myeloma and renal failure between 08/09/2018 and 09/02/2018. During this time the patient was started on systemic chemotherapy with a combination of c yclophosphamide, Velcade and Decadron. She opted to continue her treatment locally with Dr. Hernandez. Patient came into the ED because of generalized weakness and hypotension and near syncope. As mentioned her last chemo was 5 days ago. She was getting progressively more weak. Acting out of ordinary last night and somewhat confused. She was having lightheadedness and some degree of shortness of breath and in his edema all over especially in lower extremities. The patient was also having diarrhea over the past 2-3 days. No chest pain. Initial systolic blood pressure was in the low 80s. Upon arrival to the emergency department the patient was afebrile. The systolic blood pressure was recorded to be as low as 70 with diastolic of 36. The patient was given a total of 2 L of IV fluid. The patient following that improved. Nevertheless, based on the extensive surgery. Volume overload, total decided not to give her any further fluids. Nephrology was involved in the case and the patient will be started on hemodialysis. Meanwhile, it was advised for this patient to moved to the ICU for any pressor treatment if needed should he develop any hypotension. Patient's white cell count is at 5.5. The patient seemed was at 7.4. Renal function shows a BUN of 51 with a creatinine of 2.7. The troponin was not measures. Lactic acid level is at 2.0. ProBNP level is 150,000. The chest x-ray shows chronic right basilar infiltration/atelectasis. Note that this patient typically runs a low blood pressure. She is on midodrine outpatient basis 10 mg by mouth 3 times a day. On 09/07/2018 the patient is awake and alert. She has no specific complaints. She has still increased edema lower extremities. The blood cultures showing gram-negative rods and final cultures sensitivities are still pending. The patient underwent hemodialysis yesterday and during the last as the patient required pressors in the form of norepinephrine infusion which is running at a very low-dose for now. Her systolic blood pressures are low 80s. She is asymptomatic with her low blood pressure. Urine output is almost not present. The patient was seen by nephrology. IV Lasix was given to generate some urine output. The patient was also placed on IV antibiotics and currently she is on IV Rocephin. She is also on midodrine 10 mg by mouth 3 times a day. Chest x- ray shows some increased vascular congestion and right-sided pleural effusion more than left. No altered mentation. No headache. No chest pain. No other significant events overnight. The diarrhea has subsided. On 09/08/2018 I'm seeing this patient for a follow-up. The patient is still having issues with blood pressure. She is on low-dose levo fed. Blood culture came back positive for prevention and the suspected source is the urinary tract. The patient is currently on IV cefepime. The patient underwent hemodialysis today. No major issues with blood pressure hypotension. The dialysis catheter site is dry clean and intact. Cultures of been sent from the catheter and the urine. The patient has no new complaints. She is quite weak. She is lethargic. She has increased lower extremities edema. She is on IV Lasix. Her urine output is minimal. No nausea. No vomiting. No abdominal pain. Oral intake is diminished and the patient is not taking her full dietary requirements. Seconds at 8.5. Rest of the blood work and electrodes are all within normal limits. TSH was at 9.9 and the Synthroid dose has been modified. On 09/09/2018 the patient seems to be much improved compared to yesterday. Her last hemodialysis session was yesterday and this morning she looks to be much more alert and awake and interactive. No fever or chills. She is still on 1 g per minute of norepinephrine infusion for blood pressure control. The patient is on IV cefepime. The blood culture was positive for procidentia and the urine culture was positive for Enterobacter. The cultures obtained from the catheter is been negative. The patient is doing well. No nausea. No vomiting. She has developed increased edema in the upper and lower extremity which is chronic. She is receiving still IV Lasix. She was able to ambulate in the hallway. She is on stress dose hydrocortisone. No other complaints or any other issues over the past 24 hours. No altered mentation. No nausea. No vomiting. No abdominal pain. Was reevaluated today on 09/11/2018, patient remains on hemodialysis, improving, remains on a very small tiny dose of 2 mcg/m of norepinephrine, she is also on IV cefepime for her positive blood cultures showing providentia and Enterobacter. The most likely source of her infection is likely urine unless proven otherwise. Clinically the patient is feeling better, breathing easier, denies any pain, denies any shortness of breath, she feels a bit lightheaded. She remains on stress doses of hydrocortisone. WBC count is 2.5 hemoglobin is 7.4. Electrolytes are relatively normal. BUN is 66 creatinine 3.17. Reevaluated today on 09/12/2018, patient developed hypotension early this morning , had to be placed back on norepinephrine. Remains on broad-spectrum antibiotics for positive blood cultures/remains on cefepime. Patient is receiving hemodialysis again today, and she seems to be tolerating the hemodialysis well. Denies any cough no wheezing no shortness of breath no chest pain, she does feel generally weak. Chest x-ray from yesterday showed mostly fluid overload with pulmonary vascular congestion, right and small pleural effusions noted. No chest x-ray done today. Reevaluated today on 09/13/2018, patient is now off norepinephrine, doing fairly well, blood pressure is marginal, she had hemodialysis earlier today, and it was well-tolerated. Patient is relatively asymptomatic, she feels generally weak however. All labs were reviewed her hemoglobin is 8.1 electrolytes are normal BUN is 40 creatinine 2.03. Potassium is normal. C. difficile screen was negative. Reevaluated today on 09/14/2018, patient is receiving hemodialysis during my evaluation. Remains off norepinephrine. Patient had an episode of hypotension/orthostatic yesterday while she was having physical therapy. Remains on multiple meds to maintain adequate blood pressure, denies any shortness of breath, no cough, no wheezing. Remains on broad-spectrum antibiotics, hemoglobin today is 7.5 WBC count is 3.0 and electrodes are normal BUN is 35 creatinine 2.04. Objective - Vital Signs Vital signs: Vital Signs Temp 97.4 F L 09/14/18 12:00 Pulse 68 09/14/18 12:00 Resp 17 09/14/18 12:00 BP 96/60 09/14/18 12:00 Pulse Ox 97 09/14/18 12:00 Intake & Output 09/13/18 09/14/18 09/14/18 18:59 06:59 18:59 Intake Total 140 260 420 Output Total 1999 Balance -1860 260 420 Weight 85 kg 85 kg Intake: IV 140 210 60 0.9 140 110 60 Albumin Human 25% 50 ml 100 In Empty Bag 1 bag @ 50 mls/hr IVPB Q12H [facility] Rx#: [id number] Oral 50 360 Output: Urine 0 Hemodialysis 1999 Other: Voiding Method Bedpan # Voids 1 # Bowel Movements 1 - Exam Physical Exam: Revealed a 58-year-old pleasant, in no distress. Head: Atraumatic, normocephalic. HEENT:[Neck is supple.] [No neck masses.] [No thyromegaly.] [No JVD.] PERRLA, EOMI, no icterus. Chest: [Clear throughout, no crackles, no rhonchi, no wheezes.] Cardiac Exam: [Normal S1 and S2, no S3 gallop, no murmur.] Abdomen: [Soft, nontender, no megaly, no rebound, no guarding, normal bowel sounds.] Extremities: [No clubbing, 1+ bipedal edema, no cyanosis.] Neurological Exam: [No focal neurologic deficit.] Alert oriented 3. Skin: No rashes. Psychiatric: Normal mood affect and normal mental status examination. - Labs CBC & Chem 7: 09/14/18 05:28 09/14/18 05:28 Labs: Abnormal Lab Results - Last 24 Hours (Table) 09/14/18 09/14/18 Range/Units 05:28 05:28 WBC 3.0 L (3.8-10.6) k/uL RBC 2.61 L (3.80-5.40) m/uL Hgb 7.5 L (11.4-16.0) gm/dL Hct 23.5 L (34.0-46.0) % RDW 17.6 H (11.5-15.5) % Plt Count 41 L (150-450) k/uL Lymphocytes # 0.1 L (1.0-4.8) k/uL Sodium 133 L (137-145) mmol/L Carbon Dioxide 20 L (22-30) mmol/L BUN 35 H (7-17) mg/dL Creatinine 2.04 H (0.52-1.04) mg/dL Glucose 103 H (74-99) mg/dL Calcium 7.9 L (8.4-10.2) mg/dL Alkaline Phosphatase 366 H (38-126) U/L Total Protein 4.2 L (6.3-8.2) g/dL Albumin 2.5 L (3.5-5.0) g/dL Microbiology - Last 24 Hours (Table) 09/08/18 07:45 Blood Culture - Final Blood No Growth after 144 hours 09/07/18 11:15 Blood Culture - Final Blood No Growth after 144 hours Assessment and Plan Assessment: Impression: Hypotension secondary to sepsis and septic shock, also related to hypovolemia, resolved. Remains off norepinephrine for the last 2 days now Multiple myeloma recently started on systemic chemotherapy with Cytoxan and Decadron and Velcade. Patient has light chain disease. Chronic kidney disease secondary to multiple myeloma, presently on hemodialysis. Chronic Diastolic congestive heart failure most likely secondary to infiltrative cardiomyopathy related to myeloma and amyloidosis. This is a chronic process. Moderate to severe mitral regurgitation Anasarca and extensive lower extremity edema, will likely improve with dialysis and ultrafiltration. Benign essential hypertension Chronic anemia Generalized anxiety disorder Hypothyroidism on replacement therapy Recommendation: Continue hemodialysis. Continue antibiotics/cefepime, Arrange for patient to transfer out of the ICU to a monitor bed on selective. We'll continue to follow. Long-term prognosis remains poor and guarded consider ing her multiple comorbidities as noted above. Time with Patient: Less than 30
--- NOTE | 2018-09-14 16:39 | P.CONS ---
History of Present Illness - Chief Complaint Medical debility - History of Present Illness I had the opportunity to see patient for inpatient rehab consultation with regard to medical debility. She was admitted to [facility] September 06 with presyncope and hypotension. Known multiple myeloma including kidney, end-stage renal failure cranial hemodialysis and cardiomyopathy. Seen in ICU by Dr. Byers. Seen by Dr. Munguia who notes acute kidney injury. Seen by Dr. Bradford for diarrhea, C. difficile. Lower extremity Doppler negative for right or left leg DVT but some edema noted. Chest x-ray demonstrated congestion and bilateral pleural effusion. PT reports supervision for bed mobility and moderate as sistance to transfer. Unable to take any steps. OT reports minimal assistance for upper dressing and maximal assistance for lower dressing and bathing and total assist with toileting. 2 person maximal assistance for bed mobility and unable to transfer. Previous functional history as elicited from patient: 58-year-old right-handed white female who is lives in a first-floor of a 2 floor home with and a 19-year-old daughter. works full-time and does the cooking, laundry, driving. 19-year-old daughter Works part-time. has been is physically assisting patient with bathing, dressing, toileting and mobility with a roller walker. Patient denies tobacco around call. Dr. Carroll is regular doctor. Review of Systems Review of systems: ENT: Denies sneezes or discharge. Eyes: Denies discharge or photophobia. Cardiac: Denies chest pain or palpitation. Pulmonary: Denies cough or shortness of breath. Breast: Denies discharge or lumps. Gastrointestinal: Denies nausea, emesis, constipation, diarrhea. Genitourinary: Denies discharge or frequency. Musculoskeletal: Denies muscle or bone aches. Extremities: Edema lowers. Neurologic: General weakness. Endocrine: Denies shakes or sweats. Oncology: Denies cancers. Dermatologic: Denies rash, itching, pruritus. ALLERGY/immunology: Denies sneezes, rashes. 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 Pt was transferred to [facility] on 07/21/18 and diagnosed with light chain amyloidosis/light chain proximal tubulopathy/cardiorenal syndrome/CHF, hyponatremia. Pt had temporary dialysis. Other hx: Diagnosed with multiple myeloma in April, blood clot in Left eye (origin unknown)...blood work/dx tests such as carotid u/s performed to determine etiology but remains unknown, normocytic anemia, hypotension, hypothyroid, varicosities. History of Any Multi-Drug Resistant Organisms: None Reported Past Surgical History: Bariatric Surgery, Orthopedic Surgery, Tonsillectomy Additional Past Surgical History / Comment(s): 05/2018 bone marrow bx and renal bx, 06/2018 r sided dialysis port X 2, right knee meniscus repair (Feb 2016), Bariatric Lap band May 2009, bilateral cataract surgery (November 2013), laser L eye surgery for retinal occlusion, lin carpal tunnel, colonoscopy, bilateral breast reduction. Past Anesthesia/Blood Transfusion Reactions: No Reported Reaction Additional Past Anesthesia/Blood Transfusion Reaction / Comm: No hx of blood transfusion Smoking Status: Never smoker - Past Family History Father History Unknown: Yes Family Medical History: Unable to Obtain Additional Family Medical History / Comment(s): does not know who her biologic father is Mother Family Medical History: No Reported History Additional Family Medical History / Comment(s): Mother may have had some mental issues. Medications and Allergies Home Medications Medication Instructions Recorded Confirmed Type Aspirin [Adult Low Dose Aspirin EC] 81 mg PO DAILY 03/08/16 09/06/18 History Acyclovir 400 mg PO DAILY 07/07/18 09/06/18 History Magnesium Oxide 400 mg PO DAILY 07/07/18 09/06/18 History Allopurinol [Zyloprim] 100 mg PO DAILY 08/04/18 09/06/18 History Levothyroxine Sodium [Synthroid] 25 mcg PO DAILY 08/04/18 09/06/18 History Acetaminophen with Codeine 1 tab PO Q4H PRN 09/06/18 09/06/18 History [Tylenol with Codeine #4 Tablet] Artificial Tears-Hypromellose 1 drops BOTH EYES TID PRN 09/06/18 09/06/18 History [Artificial Tear Drops] Loperamide [Imodium] 2 mg PO Q4H PRN 09/06/18 09/06/18 History Meclizine [Antivert] 12.5 mg PO TID PRN 09/06/18 09/06/18 History Midodrine HCl [ProAmatine] 10 mg PO TID 09/06/18 09/06/18 History Pantoprazole Sodium [Protonix] 40 mg PO DAILY 09/06/18 09/06/18 History Polyethylene Glycol 3350 [Miralax] 17 gm PO DAILY PRN 09/06/18 09/06/18 History Prochlorperazine [Compazine] 10 mg PO AC-TID 09/06/18 09/06/18 History Sennosides [Senna] 17.2 mg PO HS 09/06/18 09/06/18 History Sevelamer [Renvela] 800 mg PO TID-W/MEALS 09/06/18 09/06/18 History Allergies Allergy/AdvReac Type Severity Reaction Status Date / Time No Known Allergies Allergy Verified 09/06/18 10:27 Physical Exam Vitals: Vital Signs Temp Pulse Pulse Resp BP BP Pulse Ox 09/14/18 15:20 97.7 F 71 16 97/62 09/14/18 14:00 75 19 102/63 97 09/14/18 12:00 97.4 F L 68 17 96/60 97 09/14/18 11:00 70 18 83/44 96 09/14/18 10:30 70 15 82/51 97 09/14/18 10:00 68 13 90/62 97 09/14/18 09:30 71 12 83/44 97 09/14/18 09:00 70 15 89/57 98 09/14/18 08:30 69 19 84/50 90 L 09/14/18 08:00 97.7 F 67 12 92/60 95 09/14/18 07:30 66 14 91/58 96 09/14/18 07:00 67 16 110/68 96 09/14/18 06:30 93 17 99/63 84 L 09/14/18 06:00 68 12 98/62 95 09/14/18 05:30 68 12 103/62 96 09/14/18 05:00 68 11 L 101/60 95 09/14/18 04:30 68 12 103/63 09/14/18 04:00 97.6 F 67 14 100/60 96 09/14/18 03:30 66 12 105/61 96 08/01/19 03:00 69 14 98/61 95 09/14/18 02:30 70 12 99/61 95 09/14/18 02:00 69 12 98/62 96 09/14/18 01:30 70 14 100/63 09/14/18 01:00 70 12 103/66 96 09/14/18 00:30 69 12 103/62 97 09/14/18 00:01 70 14 96/61 97 09/14/18 00:00 97.9 F 70 14 96/61 97 09/13/18 23:30 73 12 100/60 96 09/13/18 23:00 71 15 103/62 93 L 09/13/18 22:30 70 17 102/66 96 09/13/18 22:00 96 15 104/65 97 09/13/18 21:30 74 13 104/70 97 09/13/18 21:00 73 19 107/68 97 09/13/18 20:30 75 13 105/67 97 09/13/18 20:00 97.3 F L 75 21 107/74 97 09/13/18 19:30 100 19 114/75 97 09/13/18 19:00 105 H 12 106/66 95 09/13/18 18:30 104 H 12 100/57 97 09/13/18 18:00 104 H 19 97/54 97 09/13/18 17:30 78 21 93/54 97 09/13/18 17:00 74 19 95/54 97 Intake and Output 09/14/18 09/14/18 09/14/18 06:59 14:59 22:59 Intake Total 80 420 Output Total 2500 Balance 80 420 -2500 Intake: IV 80 60 0.9 80 60 Oral 360 Output: Hemodialysis 2500 Other: Voiding Method Bedpan # Voids 1 # Bowel Movements 1 Weight 85 kg 85 kg Skin: Good color, texture, turgor. General: Medium build and comfortable appearance. Head: Normocephalic, atraumatic. Eyes: Symmetric. Pupils equal round. Ears: Symmetric. Hearing within normal limits. Mouth: Clear. Neck: Supple. Carotid without bruit. Cardiac: Regular rate and rhythm. Lungs: Clear anteriorly and posteriorly. Abdomen: Soft active nontender. Extremities: Normal tone. 2+ lower extremity edema below knees. Neurological: Mental status: Alert, cooperative, pleasant. Cranial nerves: Symmetric facial tone and trapezius. Motor: Can actively elevate left arm, poor movement right arm especially shoulder that is long-standing. Legs are poor. Sensation: Intact throughout. DTRs: Symmetric and equal throughout. Mobility: Unable to sit without physical assistance. Results CBC & Chem 7: 09/14/18 05:28 09/14/18 05:28 Labs: Abnormal Lab Results - Last 24 Hours (Table) 09/14/18 09/14/18 Range/Units 05:28 05:28 WBC 3.0 L (3.8-10.6) k/uL RBC 2.61 L (3.80-5.40) m/uL Hgb 7.5 L (11.4-16.0) gm/dL Hct 23.5 L (34.0-46.0) % RDW 17.6 H (11.5-15.5) % Plt Count 41 L (150-450) k/uL Lymphocytes # 0.1 L (1.0-4.8) k/uL Sodium 133 L (137-145) mmol/L Carbon Dioxide 20 L (22-30) mmol/L BUN 35 H (7-17) mg/dL Creatinine 2.04 H (0.52-1.04) mg/dL Glucose 103 H (74-99) mg/dL Calcium 7.9 L (8.4-10.2) mg/dL Alkaline Phosphatase 366 H (38-126) U/L Total Protein 4.2 L (6.3-8.2) g/dL Albumin 2.5 L (3.5-5.0) g/dL Microbiology - Last 24 Hours (Table) 09/08/18 07:45 Blood Culture - Final Blood No Growth after 144 hours 09/07/18 11:15 Blood Culture - Final Blood No Growth after 144 hours Assessment and Plan (1) Hypotension Current Visit: Yes Status: Acute Priority: High Code(s): I95.9 - HYPOTENSION, UNSPECIFIED SNOMED Code(s): 03371671 (2) Multiple myeloma Current Visit: Yes Status: Acute Priority: High Code(s): C90.00 - MULTIPLE MYELOMA NOT HAVING ACHIEVED REMISSION SNOMED Code(s): 481835448 (3) Acute kidney injury Current Visit: No Status: Acute Code(s): N17.9 - ACUTE KIDNEY FAILURE, UNSPECIFIED SNOMED Code(s): 59827347 Plan: Impression: 1. Medical debility with hypotension. 2. Syncope. 3. Multiple myeloma. 4. End-stage renal failure requiring hemodialysis. 5. Cardiomyopathy. Comments and plan: At this time PT and OT are ongoing. Endurance issues noted. Do not believe patient can tolerate a full inpatient rehab program of 3 hours per day. Stuart is apparently discussed mention there with and patient and would agree with this plan at this time. Patient and both reported Stuart is discussed doing 6 hours of therapy per day.
--- NOTE | 2018-09-14 18:57 | PN ---
PROGRESS NOTE DATE OF SERVICE: 09/14/2018 REASON FOR FOLLOWUP: Providencia bacteremia, enterobacter UTI. INTERVAL HISTORY: The patient is currently afebrile. The patient has been breathing comfortably. Denies having any chest pain or any cough. No abdominal pain. The patient did have a bowel movement since morning. PHYSICAL EXAMINATION: Blood pressure is 97/62 with a pulse of 71, temperature 97.7. She is 97% on room air. General description is a middle-aged female lying in bed in no distress. RESPIRATORY SYSTEM: Unlabored breathing. Clear to auscultation anteriorly. HEART: S1, S2. Regular rate and rhythm. ABDOMEN: Soft. No tenderness. EXTREMITIES: No edema of the feet. LABS: Hemoglobin 7.5, white count 3.0, BUN of 35, creatinine 2.04. Blood culture repeat has been negative. DIAGNOSTIC IMPRESSION AND PLAN: Patient with providencia bacteremia, source possibly PermCath culture has been negative. The patient's antibiotic was switched over to oral Cipro, as the patient did have diarrhea, possibly cefepime-induced. Patient to continue oral Cipro for another week to finish a 2-week course of therapy from a number negative blood culture. at bedside. Questions were answered. MMODL / IJN: [id number] /
[2018-09-15] MEDS: MELATONIN 3 MG TABLET PO PRN ×2 (01:26→23:03)
[2018-09-15 06:31] LABS: Anisocytosis Slight; Basophils % (A) 0 %; Eosinophils % (A) 0 %; HCT 24.4 % (34.0-46.0); HGB 7.4 gm/dL (11.4-16.0); Hypochromasia Slight; Lymphocytes # (A) 0.1 k/uL (1.0-4.8); Lymphocytes % (A) 3 %; MCH 27.7 pg (25.0-35.0); MCHC 30.4 g/dL (31.0-37.0); Mean Platelet Volume 10.5; Monocytes # (A) 0.2 k/uL (0-1.0); Monocytes % (A) 6 %; Neutrophils # (A) 3.7 k/uL (1.3-7.7); Neutrophils % (A) 91 %; Poikilocytosis Slight; RBC 2.68 m/uL (3.80-5.40); RDW 17.6 % (11.5-15.5)
[2018-09-15 06:35] LABS: Platelet Count 48 k/uL (150-450)
[2018-09-15 06:37] LABS: Calcium 8.1 mg/dL (8.4-10.2); Potassium 3.9 mmol/L (3.5-5.1)
[2018-09-15] MEDS: PANTOPRAZOLE 40 MG TABLET PO SCH (06:55)
[2018-09-15] MEDS: SEVELAMER 800 MG TAB PO SCH ×3 (06:55→17:41)
[2018-09-15] MEDS: MIDODRINE 5 MG TAB PO SCH ×3 (06:55→17:42)
[2018-09-15] MEDS: LEVOTHYROXINE 50 MCG TAB PO SCH (06:55)
[2018-09-15] MEDS: CHOLESTYRAMINE (WITH SUGAR) 4 GM PACKET PO SCH ×4 (06:56→21:03)
[2018-09-15] MEDS: ASPIRIN 81 MG PO SCH (09:40)
[2018-09-15] MEDS: ALLOPURINOL 100 MG TAB PO SCH (09:40)
[2018-09-15] MEDS: CIPROFLOXACIN HCL 500 MG TAB PO SCH (09:40)
[2018-09-15] MEDS: SODIUM BICARBONATE TAB 650 MG TAB PO SCH ×3 (09:40→21:03)
[2018-09-15] MEDS: FOLIC ACID-VIT B COMPLEX-VIT C 1 CAP PO SCH (09:40)
[2018-09-15] MEDS: HYDROCORTISONE SUCCINATE 100 MG/2 ML VIAL IV SCH ×3 (09:41→22:59)
--- NOTE | 2018-09-15 11:55 | P.PN ---
Subjective Progress Note Date: 09/15/18 Principal diagnosis: Acute sepsis with septic shock secondary to Providencia rettgeri and Enterobacter aerogenes in the urine. 58-year-old female patient with known history of multiple myeloma and amyloidosis and End stage renal disease is currently on hemodialysis. The patient also has infiltrative cardiomyopathy with diastolic dysfunction and a preserved LV function. The patient is on hemodialysis for the time being 3 times a week and has last hemodialysis session was 2 days ago. The patient came into the emergency department after being discharged from [facility] approximately 5 days ago. The patient wasn't [facility] meeting with complications of myeloma and renal failure between 08/09/2018 and 09/02/2018. During this time the patient was started on systemic chemotherapy with a combination of cyclophosphamide, Velcade and Decadron. She opted to continue her treatment locally with Dr. Hernandez. Patient came into the ED because of generalized weakness and hypotension and near syncope. As mentioned her last chemo was 5 days ago. She was getting progressively more weak. Acting out of ordinary last night and somewhat confused. She was having lightheadedness and some degree of shortness of breath and in his edema all over especially in lower extremities. The patient was also having diarrhea over the past 2-3 days. No chest pain. Initial systolic blood pressure was in the low 80s. Upon arrival to the emergency department the patient was afebrile. The systolic blood pressure was recorded to be as low as 70 with diastolic of 36. The patient was given a total of 2 L of IV fluid. The patient following that improved. Nevertheless, based on the extensive surgery. Volume overload, total decided not to give her any further fluids. Nephrology was involved in the case and the patient will be started on hemodialysis. Meanwhile, it was advised for this patient to moved to the ICU for any pressor treatment if needed should he develop any hypotension. Patient's white cell count is at 5.5. The patient seemed was at 7.4. Renal function shows a BUN of 51 with a creatinine of 2.7. The troponin was not measures. Lactic acid level is at 2.0. ProBNP level is 150,000. The chest x-ray shows chronic right basilar infiltration/atelectasis. Note that this patient typically runs a low blood pressure. She is on midodrine outpatient basis 10 mg by mouth 3 times a day. On 09/07/2018 the patient is awake and alert. She has no specific complaints. She has still increased edema lower extremities. The blood cultures showing gram-negative rods and final cultures sensitivities are still pending. The patient underwent hemodialysis yesterday and during the last as the patient required pressors in the form of norepinephrine infusion which is running at a very low-dose for now. Her systolic blood pressures are low 80s. She is asymptomatic with her low blood pressure. Urine output is almost not present. The patient was seen by nephrology. IV Lasix was given to generate some urine output. The patient was also placed on IV antibiotics and currently she is on IV Rocephin. She is also on midodrine 10 mg by mouth 3 times a day. Chest x- ray shows some increased vascular congestion and right-sided pleural effusion more than left. No altered mentation. No headache. No chest pain. No other significant events overnight. The diarrhea has subsided. On 09/08/2018 I'm seeing this patient for a follow-up. The patient is still having issues with blood pressure. She is on low-dose levo fed. Blood culture came back positive for prevention and the suspected source is the urinary tract. The patient is currently on IV cefepime. The patient underwent hemodialysis today. No major issues with blood pressure hypotension. The dialysis catheter site is dry clean and intact. Cultures of been sent from the catheter and the urine. The patient has no new complaints. She is quite weak. She is lethargic. She has increased lower extremities edema. She is on IV Lasix. Her urine output is minimal. No nausea. No vomiting. No abdominal pain. Oral intake is diminished and the patient is not taking her full dietary requireme nts. Seconds at 8.5. Rest of the blood work and electrodes are all within normal limits. TSH was at 9.9 and the Synthroid dose has been modified. On 09/09/2018 the patient seems to be much improved compared to yesterday. Her last hemodialysis session was yesterday and this morning she looks to be much more alert and awake and interactive. No fever or chills. She is still on 1 g per minute of norepinephrine infusion for blood pressure control. The patient is on IV cefepime. The blood culture was positive for procidentia and the urine culture was positive for Enterobacter. The cultures obtained from the catheter is been negative. The patient is doing well. No nausea. No vomiting. She has developed increased edema in the upper and lower extremity which is chronic. She is receiving still IV Lasix. She was able to ambulate in the hallway. She is on stress dose hydrocortisone. No other complaints or any other issues over the past 24 hours. No altered mentation. No nausea. No vomiting. No abdominal pain. Was reevaluated today on 09/11/2018, patient remains on hemodialysis, improving, remains on a very small tiny dose of 2 mcg/m of norepinephrine, she is also on IV cefepime for her positive blood cultures showing providentia and Enterobacter. The most likely source of her infection is likely urine unless proven otherwise. Clinically the patient is feeling better, breathing easier, denies any pain, denies any shortness of breath, she feels a bit lightheaded. She remains on stress doses of hydrocortisone. WBC count is 2.5 hemoglobin is 7.4. Electrolytes are relatively normal. BUN is 66 creatinine 3.17. Reevaluated today on 09/12/2018, patient developed hypotension early this morning, had to be placed back on norepinephrine. Remains on broad-spectrum antibiotics for positive blood cultures/remains on cefepime. Patient is receiving hemodialysis again today, and she seems to be tolerating the hemodialysis well. Denies any cough no wheezing no shortness of breath no chest pain, she does feel generally weak. Chest x-ray from yesterday showed mostly fluid overload with pulmonary vascular congestion, right and small pleural effusions noted. No chest x-ray done today. Reevaluated today on 09/13/2018, patient is now off norepinephrine, doing fairly well, blood pressure is marginal, she had hemodialysis earlier today, and it was well-tolerated. Patient is relatively asymptomatic, she feels generally weak however. All labs were reviewed her hemoglobin is 8.1 electrolytes are normal BUN is 40 creatinine 2.03. Potassium is normal. C. difficile screen was negative. Reevaluated today on 09/14/2018, patient is receiving hemodialysis during my evaluation. Remains off norepinephrine. Patient had an episode of hypotension/orthostatic yesterday while she was having physical therapy. Remains on multiple meds to maintain adequate blood pressure, denies any shortness of breath, no cough, no wheezing. Remains on broad-spectrum antibiotics, hemoglobin today is 7.5 WBC count is 3.0 and electrodes are normal BUN is 35 creatinine 2.04. The patient is seen today 09/15/2018 in follow-up on the selective care unit. She is currently awake and alert in no acute distress. Resting comfortably in bed. Currently receiving hemodialysis. The plan is for her to 2.5 L to be removed today if tolerated. Blood pressure stable. On Solu-Cortef. She is maintaining good O2 saturations in the 90s on room air. She's been afebrile. White count 4.0. Hemoglobin 7.4. Platelet count 48,000. Creatinine 1.94. She is status post 1 unit of packed red blood cells this admission. Blood cultures positive for Providencia rettgeri. Urine culture positive for Enterobacter aerogenes. She remains on Cipro. Objective - Vital Signs Vital signs: Vital Signs Temp 97.6 F 09/15/18 08:00 Pulse 80 09/15/18 08:00 Resp 18 09/15/18 08:00 BP 118/65 09/15/18 08:00 Pulse Ox 94 L 09/15/18 08:00 Intake & Output 09/14/18 09/15/18 09/15/18 18:59 06:59 18:59 Intake Total 420 310 360 Output Total 2500 450 Balance -2080 -140 360 Weight 85 kg 85.5 kg Intake: IV 60 70 0.9 60 70 Oral 360 240 360 Output: Stool 450 Hemodialysis 2500 Other: Voiding Method Bedpan Bedpan Bedpan # Voids 1 0 1 # Bowel Movements 1 4 1 - Exam GENERAL EXAM: Alert, comfortable in no apparent distress. On room air. HEAD: Normocephalic. EYES: Normal reaction of pupils, equal size. NOSE: Clear with pink turbinates. THROAT: No erythema or exudates. NECK: No masses, no JVD. CHEST: Right subclavian hemodialysis catheter in place. No chest wall deformity. LUNGS: Equal air entry with basilar crackles. CVS: S1 and S2 normal with no audible murmur, regular rhythm. ABDOMEN: No hepatosplenomegaly, normal bowel sounds, no guarding or rigidity. SPINE: No scoliosis or deformity SKIN: No rashes CENTRAL NERVOUS SYSTEM: No focal deficits, tone is normal in all 4 extremities. EXTREMITIES: There is 1-2+ peripheral edema. No clubbing, no cyanosis. Peripheral pulses are intact. - Labs CBC & Chem 7: 09/15/18 05:50 09/15/18 05:50 Labs: Abnormal Lab Results - Last 24 Hours (Table) 09/15/18 09/15/18 Range/Units 05:50 05:50 RBC 2.68 L (3.80-5.40) m/uL Hgb 7.4 L (11.4-16.0) gm/dL Hct 24.4 L (34.0-46.0) % MCHC 30.4 L (31.0-37.0) g/dL RDW 17.6 H (11.5-15.5) % Plt Count 48 L (150-450) k/uL Lymphocytes # 0.1 L (1.0-4.8) k/uL Sodium 136 L (137-145) mmol/L BUN 34 H (7-17) mg/dL Creatinine 1.94 H (0.52-1.04) mg/dL Glucose 115 H (74-99) mg/dL Calcium 8.1 L (8.4-10.2) mg/dL Microbiology - Last 24 Hours (Table) 09/12/18 15:28 Stool Culture - Preliminary Stool 09/08/18 07:45 Blood Culture - Final Blood No Growth after 144 hours Assessment and Plan Assessment: Impression: Hypotension secondary to sepsis and septic shock, also related to hypovolemia, resolved. Multiple myeloma recently started on systemic chemotherapy with Cytoxan and Decadron and Velcade. Patient has light chain disease. Chronic kidney disease secondary to multiple myeloma, presently on hemodialysis. Chronic Diastolic congestive heart failure most likely secondary to infiltrative cardiomyopathy related to myeloma and amyloidosis. This is a chronic process. Moderate to severe mitral regurgitation Anasarca and extensive lower extremity edema, will likely improve with dialysis and ultrafiltration. Benign essential hypertension Chronic anemia Generalized anxiety disorder Hypothyroidism on replacement therapy Recommendation: The patient was seen and evaluated by Dr. Toribio. She is stable from the pulmonary and critical care standpoint. Her overall prognosis remains guarded. We'll continue with the current treatment plan. We'll continue to follow. I, the cosigning physician, performed a history & physical examination of the patient. Lungs sounds with basilar crackles. Maintaining good O2 saturations in the 90s on room air. I discussed the assessment and plan of care with my nurse practitioner, Yuliya Nava. I attest to the above note as dictated by her.
--- NOTE | 2018-09-15 13:58 | PN ---
PROGRESS NOTE DATE OF SERVICE: 09/15/2018 REASON FOR FOLLOWUP: Providencia bacteremia and Enterobacter UTI. INTERVAL HISTORY: The patient is currently afebrile. Patient has been breathing comfortably. Denies having any chest pain or any cough. No nausea, vomiting, no abdominal pain. The diarrhea has slowed down. PHYSICAL EXAMINATION: Her blood pressure is 95/57 with a pulse of 75, temperature 97.8, she is 96% on room air. General description is a middle-aged female up in the bed, in no distress. RESPIRATORY SYSTEM: Unlabored breathing, clear to auscultation anteriorly. HEART: S1, S2. Regular rate and rhythm. ABDOMEN: Soft, no tenderness. LABS: Hemoglobin 7.4, white count 4.0, BUN of 34, creatinine 4.94. DIAGNOSTIC IMPRESSION AND PLAN: Patient with evidence of bacteremia questionably PermCath source. Blood culture has been negative. Also Enterobacter urinary tract infection, currently on oral Cipro. Continue for about a week to finish a 2-week course of therapy: Negative blood cultures including IV she received. Plan for repeating a blood culture from the PermCath at the time of dialysis a week after completing antibiotic and if those are negative, no further workup will be needed and the patient can resume her chemo at that point. Diarrhea, possibly antibiotic associated. Patient advised to eat yogurt with each meal; however, the patient apparently does not like yogurt, a smoothie has been offered and will add Lactinex. All questions were answered. MMODL / IJN: [id number] /
--- NOTE | 2018-09-15 14:53 | P.PN ---
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 The patient was noted to be hypotensive upon EMS arrival. Nephrology and hematology were consulted and recommended 2 L of IV fluids and IV pressor support.The patient was recently hospitalized from 08/09 to 09/02 for myeloma related kidney dysfunction along with cardiology myopathy. She had received chemotherapy and was started on dialysis, along with being diagnosed with C. diff for which she completed a ten-day course of oral vancomycin. The patient was subsequently admitted to the medical ICU and was started on IV pressors. The patient's blood cultures initially grew gram-negative organisms after which infectious disease was consulted and the patient was started on ceftriaxone which was subsequently transitioned to cefepime. The blood culture resulted w/ provdencia as the patient continued to require Levophed. She was resumed on HD (ultrafiltration) as she remained oliguric. She was able to tolerate being off of Levophed for 45 minutes on 09/10 and the Levophed was held upwards of 12 hours on 09/11 after which she was restarted on it due to hypotension. The patient's hgb. The patient's Hgb dropped to 6.8 on 09/12 and 1 U of pRBCs was ordered. The patient's levophed requirements gradually decreased and she was taken off the drip on 09/12/18 @ 5 pm. The patient was downgraded to the Selective Unit on 09/14/18 after being off the Levophed infusion for 48 hours. She was seen and examined at the bedside on the selective unit. The patient denied any active complaints and was undergoing hemodialysis. She denied chest pain, shortness of breath, nausea, vomiting, or palpitations. She further d enied fever, chills, or cough. Objective - Vital Signs Vital signs: Vital Signs Temp 97.6 F 09/15/18 08:00 Pulse 80 09/15/18 08:00 Resp 18 09/15/18 08:00 BP 118/65 09/15/18 08:00 Pulse Ox 94 L 09/15/18 08:00 Intake & Output 09/14/18 09/15/18 09/15/18 18:59 06:59 18:59 Intake Total 420 310 360 Output Total 2500 450 Balance -2080 -140 360 Weight 85 kg 85.5 kg Intake: IV 60 70 0.9 60 70 Oral 360 240 360 Output: Stool 450 Hemodialysis 2500 Other: Voiding Method Bedpan Bedpan Bedpan # Voids 1 0 1 # Bowel Movements 1 4 1 - Exam General: No acute distress, appears stated age HEENT: NC/AT, anicteric sclerae, moist conjunctiva, no lid-lag, PERRLA Cardiovascular: S1/S2 wnl, no murmurs, rubs, or gallops Lungs: Mild bibasilar rales, normal respiratory effort, no accessory muscle use Abdominal: Soft, non-tender, non-distended, no guarding, rebound, or rigidity Skin: Warm, dry Extremities: Anasarca, no contractures Psychiatric: Alert and oriented to person, place and time, appropriate affect Neuro: CN II-XII grossly intact, Strength 5/5 in all 4 extremities, Speech intact, Sensation to light touch grossly intact throughout - Labs CBC & Chem 7: 09/15/18 05:50 09/15/18 05:50 Labs: Abnormal Lab Results - Last 24 Hours (Table) 09/15/18 09/15/18 Range/Units 05:50 05:50 RBC 2.68 L (3.80-5.40) m/uL Hgb 7.4 L (11.4-16.0) gm/dL Hct 24.4 L (34.0-46.0) % MCHC 30.4 L (31.0-37.0) g/dL RDW 17.6 H (11.5-15.5) % Plt Count 48 L (150-450) k/uL Lymphocytes # 0.1 L (1.0-4.8) k/uL Sodium 136 L (137-145) mmol/L BUN 34 H (7-17) mg/dL Creatinine 1.94 H (0.52-1.04) mg/dL Glucose 115 H (74-99) mg/dL Calcium 8.1 L (8.4-10.2) mg/dL Microbiology - Last 24 Hours (Table) 09/12/18 15:28 Stool Culture - Preliminary Stool 09/08/18 07:45 Blood Culture - Final Blood No Growth after 144 hours Assessment and Plan Plan: Presyncope, likely secondary to bactaremia, septic shock resolved (Providencia w/ Enterobacter in Urine -- suspected to be same bacteria) -Continue w/ Cortef and Midodrine -C/w Levothyroxine -ID following, recs apprciated -Switched to oral ciprofloxacin by ID 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, currently HD dependent -Nephrology following -Undergoing ultrafiltration -Daily weights -I/Os -Monitor CMP -Patient will resume her HD as outpatient following discharge -She is already established with a dialysis center Debility -Rehab recommendations appreciated -Patient is currently optimized for discharge to rehab facility for subacute re hab -Advised by the telephonic nurse case manager that the patient will require prior authorization before she can be transferred, which will likely not happen until Tuesday09/18/2018 Anemia, likely chronic disease vs secondary to Chemotherapy -S/p 1 U of pRBC on 09/12 -Iron, B12, and Folate blood work reviewed Thrombocytopenia -Likely secondary to Chemo and Abx use -Monitor CBC -IPCDs Multiple myeloma -Oncology following DVT prophylaxis -IPCDs Discussed with: Patient, Anticipated discharge date: 09/18/[address]: Home A total of 35 minutes was spent on the care of this complex patient more than 50% of the time was spent in counseling and care coordination.
--- NOTE | 2018-09-15 15:18 | P.PN ---
Subjective Progress Note Date: 09/15/18 Principal diagnosis: Amyloidisis and Lamda FLC Myeloma Overall improving. Spoke to Infectious disease and reviewed plan for need of rehab. Objective - Vital Signs Vital signs: Vital Signs Temp 97.7 F 09/15/18 14:56 Pulse 70 09/15/18 14:56 Resp 16 09/15/18 14:56 BP 108/58 09/15/18 14:56 Pulse Ox 96 09/15/18 12:00 Intake & Output 09/14/18 09/15/18 09/15/18 18:59 06:59 18:59 Intake Total 420 310 600 Output Total 2500 450 2500 Balance -2080 -140 -1900 Weight 85 kg 85.5 kg Intake: IV 60 70 0.9 60 70 Oral 360 240 600 Output: Stool 450 0 Hemodialysis 2500 2500 Other: Voiding Method Bedpan Bedpan Bedpan # Voids 1 0 0 # Bowel Movements 1 4 1 - Exam Gen: Alert and oriented Head: NCNT Neck: Supple Lungs: CTA Bilateral Abdomen S?ND EXT 3+ BLE Edema Neuro - Non focal - Labs CBC & Chem 7: 09/15/18 05:50 09/15/18 05:50 Labs: Abnormal Lab Results - Last 24 Hours (Table) 09/15/18 09/15/18 Range/Units 05:50 05:50 RBC 2.68 L (3.80-5.40) m/uL Hgb 7.4 L (11.4-16.0) gm/dL Hct 24.4 L (34.0-46.0) % MCHC 30.4 L (31.0-37.0) g/dL RDW 17.6 H (11.5-15.5) % Plt Count 48 L (150-450) k/uL Lymphocytes # 0.1 L (1.0-4.8) k/uL Sodium 136 L (137-145) mmol/L BUN 34 H (7-17) mg/dL Creatinine 1.94 H (0.52-1.04) mg/dL Glucose 115 H (74-99) mg/dL Calcium 8.1 L (8.4-10.2) mg/dL Microbiology - Last 24 Hours (Table) 09/12/18 15:28 Stool Culture - Preliminary Stool 09/08/18 07:45 Blood Culture - Final Blood No Growth after 144 hours Assessment and Plan Plan: Bacteremia Gram Negative Bacilli UTI: - Infectious Disease is following - COntinue antibiotic coverage Multiple myeloma - Diagnosis and treatment as outlined in HPI. Was due to complete cycle 1 of CyBorD this Tuesday, this will be held until infection cleared. 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 Syncopal Episode: - Likely related to Bacteremia and hypotension Hypotension: - Multifactorial; iAmloid of Kidneys, Component bacteremia - Adrenal Insuf ruled out Renal Amyloidosis Nephrology consulted Hyperbilirubinemia: - Likely secondary to Hypotension and medications, shock liver Thrombocytopenia: - Secondary to recent chemotherapu Diarrhea: - Check stool studies - C-diff neg - Add questran Plan: - Hold Treatment at this time and continue treatment of infection, per ID one week on Cipro PO after discharge and then repeat blood cultures, if result negative will arrange second round of chemo for Multiple Myeloma - Follow-up with Dr. Hernandez next week as scheduled on 09.21.18 at 1430 - Will hold active chemotherapy one week while on cipro po and until repeat cultures are drawn and follow-up with Dr. Hernandez. Will re-assess performance status at this time as well and continue to hold treatment while at [facility]. - Continue aggressive supportive care Physician Attest: I have completed the full history and physical, agree with dictation, dictated as a scribe
[2018-09-15] MEDS: LACTOBACILLUS ACIDOPH & BULGAR 1 EACH PACKET PO SCH ×2 (15:57→21:03)
--- NOTE | 2018-09-15 16:28 | PN ---
PROGRESS NOTE Patient was seen this morning. She was seen for followup for end-stage renal disease. Currently patient is hemodialysis-dependent with acute kidney injury from ATN and multiple myeloma. She is dialysis-dependent and has been receiving daily dialysis. She tolerated her treatment very well yesterday and is scheduled for another treatment today. She had about 2.5 L of ultrafiltration yesterday. Blood pressure remained very stable throughout treatment. On examination this morning, blood pressure 118/65, heart rate 80 per minute. Patient is afebrile. EXAMINATION OF THE HEART: S1 and S2. EXAMINATION OF LUNGS: Bilateral breath sounds are heard. ABDOMEN: Soft, non-tender. Examination of lower extremities shows no evidence of edema. SUSTAINABILITY COMMUNICATOR exam is grossly intact. Labs show hemoglobin 7.4, sodium 136, potassium 3.9, serum creatinine down to 1.94. ASSESSMENT: 1. Hemodialysis-dependent renal failure secondary to acute tubular necrosis and multiple myeloma, currently with poor urine output. Patient remains dialysis- dependent. We will plan for dialysis again tomorrow. 2. Hypotension, maintained on midodrine and steroids, currently off of pressors. 3. Volume overload and interstitial edema associated with hypoalbuminemia and infiltrative cardiomyopathy. 4. Multiple myeloma, being followed by Oncology. 5. History of Clostridium difficile colitis recently. 6. Sepsis secondary to providencia bacteremia and enterobacter urinary tract infection. PLAN: Hemodialysis today and then again in a.m. with UF of about 2.5 to 3 L as tolerated. Patient is also encouraged to increase her oral protein intake. MMODL / IJN: [id number] /
[2018-09-15] MEDS: LOPERAMIDE 2 MG CAP PO PRN (17:46)
[2018-09-15] MEDS: NOREPINEPHRINE 4 MG in SODIUM CHLORIDE 0.9% 250 ML IV SCH ×2 (19:32→19:33)
[2018-09-15] MEDS: VANCOMYCIN ORAL SOLUTION 250 MG/5 ML BOTTLE PO SCH (19:34)
[2018-09-16] MEDS: PANTOPRAZOLE 40 MG TABLET PO SCH (06:11)
[2018-09-16] MEDS: MIDODRINE 5 MG TAB PO SCH ×3 (06:11→17:01)
[2018-09-16] MEDS: LEVOTHYROXINE 50 MCG TAB PO SCH (06:12)
[2018-09-16] MEDS: CHOLESTYRAMINE (WITH SUGAR) 4 GM PACKET PO SCH ×4 (06:12→21:42)
[2018-09-16] MEDS: SEVELAMER 800 MG TAB PO SCH ×3 (06:12→17:01)
[2018-09-16 06:34] LABS: Anisocytosis Slight; Basophils % (A) 0 %; Eosinophils % (A) 0 %; HCT 24.4 % (34.0-46.0); HGB 7.5 gm/dL (11.4-16.0); Hypochromasia Slight; Lymphocytes # (A) 0.1 k/uL (1.0-4.8); Lymphocytes % (A) 2 %; MCHC 30.6 g/dL (31.0-37.0); MCV 91.6 fL (80.0-100.0); Mean Platelet Volume 10.2; Monocytes # (A) 0.2 k/uL (0-1.0); Monocytes % (A) 4 %; Neutrophils # (A) 5.1 k/uL (1.3-7.7); Neutrophils % (A) 93 %; Poikilocytosis Slight; RBC 2.66 m/uL (3.80-5.40); RDW 17.5 % (11.5-15.5); WBC 5.4 k/uL (3.8-10.6)
[2018-09-16 07:02] LABS: Platelet Count 51 k/uL (150-450)
[2018-09-16] MEDS: CIPROFLOXACIN HCL 500 MG TAB PO SCH (09:11)
[2018-09-16] MEDS: LACTOBACILLUS ACIDOPH & BULGAR 1 EACH PACKET PO SCH (09:11)
[2018-09-16] MEDS: HYDROCORTISONE SUCCINATE 100 MG/2 ML VIAL IV SCH ×2 (09:11→17:01)
[2018-09-16] MEDS: ALLOPURINOL 100 MG TAB PO SCH (09:11)
[2018-09-16] MEDS: SODIUM BICARBONATE TAB 650 MG TAB PO SCH ×3 (09:11→21:44)
[2018-09-16] MEDS: ASPIRIN 81 MG PO SCH (09:11)
[2018-09-16] MEDS: FOLIC ACID-VIT B COMPLEX-VIT C 1 CAP PO SCH (09:11)
--- NOTE | 2018-09-16 12:25 | P.PN ---
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 The patient was noted to be hypotensive upon EMS arrival. Nephrology and hematology were consulted and recommended 2 L of IV fluids and IV pressor support.The patient was recently hospitalized from 08/09 to 09/02 for myeloma related kidney dysfunction along with cardiology myopathy. She had received chemotherapy and was started on dialysis, along with being diagnosed with C. diff for which she completed a ten-day course of oral vancomycin. The patient was subsequently admitted to the medical ICU and was started on IV pressors. The patient's blood cultures initially grew gram-negative organisms after which infectious disease was consulted and the patient was started on ceftriaxone which was subsequently transitioned to cefepime. The blood culture resulted w/ provdencia as the patient continued to require Levophed. She was resumed on HD (ultrafiltration) as she remained oliguric. She was able to tolerate being off of Levophed for 45 minutes on 09/10 and the Levophed was held upwards of 12 hours on 09/11 after which she was restarted on it due to hypotension. The patient's hgb. The patient's Hgb dropped to 6.8 on 09/12 and 1 U of pRBCs was ordered. The patient's levophed requirements gradually decreased and she was taken off the drip on 09/12/18 @ 5 pm. The patient was downgraded to the Selective Unit on 09/14/18 after being off the Levophed infusion for 48 hours. The patient is ready for discharge to rehab facility, though is awaiting prior authorization from insurance company. She was seen and examined at the bedside. The patient denied any active complaints. She denied chest pain, shortness of breath, nausea, vomiting, fever, or chills. Objective - Vital Signs Vital signs: Vital Signs Temp 98.0 F 09/16/18 08:00 Pulse 74 09/16/18 08:00 Resp 18 09/16/18 08:00 BP 102/56 09/16/18 08:00 Pulse Ox 96 09/16/18 08:00 Intake & Output 09/15/18 09/16/1819 18:59 06:59 18:59 Intake Total 840 Output Total 2800 Balance -1960 Weight 83 kg Intake: Oral 840 Output: Stool 300 Hemodialysis 2500 Other: Voiding Method Bedpan Bedpan Bedpan # Voids 0 1 # Bowel Movements 1 - Exam General: No acute distress, appears stated age HEENT: NC/AT, anicteric sclerae, moist conjunctiva, no lid-lag, PERRLA Cardiovascular: S1/S2 wnl, no murmurs, rubs, or gallops Lungs: Clear to auscultation bilaterally, normal respiratory effort, no accessory muscle use Abdominal: Soft, non-tender, non-distended, no guarding, rebound, or rigidity Skin: Warm, dry Extremities: Anasarca, no contractures Psychiatric: Alert and oriented to person, place and time, appropriate affect Neuro: CN II-XII grossly intact, Strength 5/5 in all 4 extremities, Speech intact, Sensation to light touch grossly intact throughout - Labs CBC & Chem 7: 09/16/18 05:53 09/15/18 05:50 Labs: Abnormal Lab Results - Last 24 Hours (Table) 09/16/18 Range/Units 05:53 RBC 2.66 L (3.80-5.40) m/uL Hgb 7.5 L (11.4-16.0) gm/dL Hct 24.4 L (34.0-46.0) % MCHC 30.6 L (31.0-37.0) g/dL RDW 17.5 H (11.5-15.5) % Plt Count 51 L (150-450) k/uL Lymphocytes # 0.1 L (1.0-4.8) k/uL Microbiology - Last 24 Hours (Table) 09/12/18 15:28 Stool Culture - Final Stool Assessment and Plan Plan: Presyncope, likely secondary to bactaremia, septic shock resolved (Providencia w/ Enterobacter in Urine -- suspected to be same bacteria) -Continue w/ Cortef and Midodrine -C/w Levothyroxine -ID following, recs apprciated -Switched to oral ciprofloxacin by ID, to continue for 1 week after discharge -Will get repeat blood cultures upon 1 week after completion and if negative, may then restart chemotherapy 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, currently HD dependent -Nephrology following -Undergoing ultrafiltration -Daily weights -I/Os -Monitor CMP -Patient will resume her HD as outpatient following discharge -She is already established with a dialysis center Debility -Rehab recommendations appreciated -Patient is currently optimized for discharge to rehab facility for subacute rehab -Advised by the case technician that the patient will require prior authorization before she can be transferred, which will likely not happen until Tuesday 019 Anemia, likely chronic disease vs secondary to Chemotherapy -S/p 1 U of pRBC on 09/12 -Iron, B12, and Folate blood work reviewed Thrombocytopenia -Likely secondary to Chemo and Abx use -Monitor CBC -IPCDs Multiple myeloma -Oncology following DVT prophylaxis -IPCDs Discussed with: Patient, Anticipated discharge date: 09/18/[address]: Home A total of 35 minutes was spent on the care of this complex patient more than 50% of the time was spent in counseling and care coordination.
--- NOTE | 2018-09-16 15:55 | PN ---
PROGRESS NOTE The patient is seen for followup for acute kidney injury, currently hemodialysis dependent. The patient is being dialyzed on a daily basis. We had about 2-1/2 L of ultrafiltration yesterday. Patient will be dialyzed again. We will plan for about 3 L as tolerated. PHYSICAL EXAMINATION: This morning, blood pressure was 102/56, heart rate 74 per minute. Patient is afebrile. Examination of the heart S1, S2. Examination of the lungs, bilateral breath sounds are heard. Abdomen is soft, nontender. Examination lower extremities shows 1+ edema mainly in the thighs as legs are elevated. HOSPITALITY DIRECTOR exam is grossly intact. LABS: Show hemoglobin 7.5, sodium 136, potassium 3.9, albumin 2.5. ASSESSMENT: 1. Acute kidney injury, hemodialysis dependent with severe volume overload maintained on daily dialysis. We will give her a break tomorrow and plan for dialysis again on Tuesday. 2. Sepsis with gram-negative bacteremia with procidentia rettgeri and urinary tract infection with urine culture growing Enterobacter. 3. Severe volume overload. 4. Generalized debility. 5. Multiple myeloma, maintained on chemotherapy. PLAN: Hemodialysis today with ultrafiltration of about 3 L. Next dialysis will be on Tuesday. The patient is encouraged to maintain adequate oral intake particularly protein. MMODL / IJN: [id number] /
[2018-09-16] MEDS: LOPERAMIDE 2 MG CAP PO PRN (19:27)
[2018-09-16] MEDS: MELATONIN 3 MG TABLET PO PRN (21:45)
[2018-09-17] MEDS: HYDROCORTISONE SUCCINATE 100 MG/2 ML VIAL IV SCH ×3 (00:17→17:20)
[2018-09-17] MEDS: LACTOBACILLUS ACIDOPH & BULGAR 1 EACH PACKET PO SCH ×3 (00:18→20:54)
[2018-09-17] MEDS: LEVOTHYROXINE 50 MCG TAB PO SCH (05:39)
[2018-09-17] MEDS: CHOLESTYRAMINE (WITH SUGAR) 4 GM PACKET PO SCH ×4 (07:56→20:54)
[2018-09-17] MEDS: ASPIRIN 81 MG PO SCH (07:56)
[2018-09-17] MEDS: ALLOPURINOL 100 MG TAB PO SCH (07:56)
[2018-09-17] MEDS: SODIUM BICARBONATE TAB 650 MG TAB PO SCH (07:56)
[2018-09-17] MEDS: PANTOPRAZOLE 40 MG TABLET PO SCH (07:56)
[2018-09-17] MEDS: FOLIC ACID-VIT B COMPLEX-VIT C 1 CAP PO SCH (07:57)
[2018-09-17] MEDS: LOPERAMIDE 2 MG CAP PO PRN ×2 (08:03→18:25)
[2018-09-17] MEDS: CIPROFLOXACIN HCL 500 MG TAB PO SCH (08:34)
[2018-09-17] MEDS: SEVELAMER 800 MG TAB PO SCH ×3 (08:34→17:21)
[2018-09-17] MEDS: MIDODRINE 5 MG TAB PO SCH ×3 (09:48→17:20)
[2018-09-17 10:33] LABS: Calcium 8.3 mg/dL (8.4-10.2); Potassium 4.3 mmol/L (3.5-5.1)
--- NOTE | 2018-09-17 10:41 | PN ---
PROGRESS NOTE This Patient is seen for followup for acute kidney injury, currently hemodialysis dependent. She has been receiving daily treatments, mainly for ultrafiltration. Volume status has improved. Patient's weight is down to 77 kg from 85 kg 3 days ago. She had 3 L of ultrafiltration yesterday. Patient tolerated it well. There are plans for possible discharge to [facility] tomorrow. PHYSICAL EXAMINATION: This morning blood pressure was 91/58, heart rate 75 per minute. Patient is afebrile. Examination of the heart S1, S2. Examination of the lungs, decreased breath sounds bases. Abdomen is soft, nontender. Examination of lower extremities shows edema 2+ bilaterally. UNDERWRITING CLERK exam grossly intact. LABS: Show hemoglobin 7.5, sodium 136, potassium 3.9 from 09/15/2018. ASSESSMENT: 1. Acute kidney injury, acute tubular necrosis and secondary to multiple myeloma, currently hemodialysis dependent. We will hold off on dialysis today and plan for treatment tomorrow. Check BMP today. 2. Multiple myeloma, currently maintained on chemotherapy, being followed by Hem/Onc. 3. Volume overload and significant interstitial edema, currently improved much with weight down from 85 to 77 kg over the past 3 days. 4. Chronic kidney disease mineral bone disorder, maintained on Renvela. PLAN: DC sodium bicarb and continue with the dialysis. We will plan for treatment tomorrow. Check labs today. MMODL / IJN: [id number] /
--- NOTE | 2018-09-17 11:00 | P.PN ---
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 The patient was noted to be hypotensive upon EMS arrival. Nephrology and hematology were consulted and recommended 2 L of IV fluids and IV pressor support.The patient was recently hospitalized from 08/09 to 09/02 for myeloma related kidney dysfunction along with cardiology myopathy. She had received chemotherapy and was started on dialysis, along with being diagnosed with C. diff for which she completed a ten-day course of oral vancomycin. The patient was subsequently admitted to the medical ICU and was started on IV pressors. The patient's blood cultures initially grew gram-negative organisms after which infectious disease was consulted and the patient was started on ceftriaxone which was subsequently transitioned to cefepime. The blood culture resulted w/ provdencia as the patient continued to require Levophed. She was resumed on HD (ultrafiltration) as she remained oliguric. She was able to tolerate being off of Levophed for 45 minutes on 09/10 and the Levophed was held upwards of 12 hours on 09/11 after which she was restarted on it due to hypotension. The patient's hgb. The patient's Hgb dropped to 6.8 on 09/12 and 1 U of pRBCs was ordered. The patient's levophed requirements gradually decreased and she was taken off the drip on 09/12/18 @ 5 pm. The patient was downgraded to the Selective Unit on 09/14/18 after being off the Levophed infusion for 48 hours. The patient is ready for discharge to rehab facility, though is awaiting prior authorization from insurance company. The patient was subsequently transferred to the regular medicine floor on 09/16/2018. She was seen and examined at the bedside. Patient was in good spirits and denied any active complaints. She is eager to be discharged to rehab facility tomorrow. She denied chest pain, fever, chills, shortness of breath, nausea, or vomiting. Objective - Vital Signs Vital signs: Vital Signs Temp 97.8 F 09/17/18 05:00 Pulse 83 09/17/18 08:35 Resp 16 09/17/18 08:35 BP 91/58 09/17/18 05:00 Pulse Ox 96 09/17/18 05:00 Intake & Output 09/16/18 09/17/18 09/17/18 18:59 06:59 18:59 Intake Total 590 Output Total 3000 1200 300 Balance -3000 -610 -300 Weight 77 kg Intake: Oral 590 Output: Urine 0 Stool 1200 300 Hemodialysis 3000 Other: Voiding Method Bedpan Bedpan Bedpan # Voids 2 1 # Bowel Movements 1 2 - Exam General: No acute distress, appears stated age HEENT: NC/AT, anicteric sclerae, moist conjunctiva, no lid-lag, PERRLA Cardiovascular: S1/S2 wnl, no murmurs, rubs, or gallops Lungs: Clear to auscultation bilaterally, normal respiratory effort, no accessory muscle use Abdominal: Soft, non-tender, non-distended, no guarding, rebound, or rigidity Skin: Warm, dry Extremities: Anasarca, no contractures Psychiatric: Alert and oriented to person, place and time, appropriate affect Neuro: CN II-XII grossly intact, No focal deficits - Labs CBC & Chem 7: 09/16/18 05:53 09/17/18 10:04 Labs: Abnormal Lab Results - Last 24 Hours (Table) 09/17/18 Range/Units 10:04 Chloride 109 H (98-107) mmol/L BUN 30 H (7-17) mg/dL Creatinine 1.86 H (0.52-1.04) mg/dL Glucose 120 H (74-99) mg/dL Calcium 8.3 L (8.4-10.2) mg/dL Assessment and Plan Plan: 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, currently HD dependent -Nephrology following -Daily weights -I/Os -Monitor BMP -Patient will resume her HD as outpatient following discharge -She is already established with a dialysis center Presyncope, likely secondary to bactaremia, septic shock resolved (Providencia w/ Enterobacter in Urine -- suspected to be same bacteria) -Continue w/ Cortef and Midodrine -C/w Levothyroxine -ID following, recs apprciated -Switched to oral ciprofloxacin by ID, to continue for 1 week after discharge -Will need repeat blood cultures upon 1 week after completion and if negative, may then restart chemotherapy Debility -Rehab recommendations appreciated -Patient is currently optimized for discharge to rehab facility for subacute rehab -Advised by the watch caser that the patient will require prior authorization before she can be transferred, which will likely not happen until Tuesday09/18/2018 Anemia, likely chronic disease vs secondary to Chemotherapy -S/p 1 U of pRBC on 09/12 -Iron, B12, and Folate blood work reviewed Thrombocytopenia -Likely secondary to Chemo and Abx use -Monitor CBC -IPCDs Multiple myeloma -Oncology following DVT prophylaxis -IPCDs Discussed with: Patient, Anticipated discharge date: 09/18/[address]: Home A total of 35 minutes was spent on the care of this complex patient more than 50% of the time was spent in counseling and care coordination.
--- NOTE | 2018-09-17 12:56 | P.PN ---
Subjective Progress Note Date: 09/16/18 The patient has persistent generalized weakness, which is overall stable. Appetite is variable. She complains of dizziness and confusion on standing up, especially after dialysis. No obvious bleeding. Lower extremity edema still present but slowly improved Objective - Vital Signs Vital signs: Vital Signs Temp 97.8 F 09/17/18 05:00 Pulse 83 09/17/18 10:56 Resp 16 09/17/18 10:56 BP 91/58 09/17/18 05:00 Pulse Ox 96 09/17/18 05:00 Intake & Output 09/16/18 09/17/18 09/17/18 18:59 06:59 18:59 Intake Total 590 60 Output Total 3000 1200 354 Balance -3000 -610 -294 Weight 77 kg Intake: Oral 590 60 Output: Urine 0 50 Stool 1200 304 Hemodialysis 3000 Other: Voiding Method Bedpan Bedpan Bedpan # Voids 2 1 # Bowel Movements 1 2 - Constitutional General appearance: Present: no acute distress - EENT Eyes: Present: EOMI ENT: Present: hearing grossly normal, normal oropharynx - Respiratory Respiratory: bilateral: CTA - Cardiovascular Rhythm: regular Heart sounds: normal: S1, S2 - Gastrointestinal General gastrointestinal: Present: normal bowel sounds, soft - Integumentary Integumentary: Present: normal - Neurologic Neurologic: Present: CNII-XII intact - Musculoskeletal Musculoskeletal Comment(s): Bilateral lower extremity 2+ edema, partially improved Musculoskeletal: Present: generalized weakness, strength equal bilaterally - Psychiatric Psychiatric: Present: A&O x's 3, appropriate affect - Labs CBC & Chem 7: 09/16/18 05:53 09/17/18 10:04 Labs: Abnormal Lab Results - Last 24 Hours (Table) 09/17/18 Range/Units 10:04 Chloride 109 H (98-107) mmol/L BUN 30 H (7-17) mg/dL Creatinine 1.86 H (0.52-1.04) mg/dL Glucose 120 H (74-99) mg/dL Calcium 8.3 L (8.4-10.2) mg/dL Assessment and Plan (1) Bacteremia Narrative/Plan: The patient had gram-negative bacteremia, felt to be possibly related to catheter, according to ID. She also had an intercurrent urinary tract infection with separate organism. She is currently on antibiotics per ID. She is afebrile, and hemodynamics are improved. Repeat blood cultures have been negative. ID recommendations reviewed. She will complete an additional week of antibiotics and will need documentation of negative culture at that point prior to resuming treatment Current Visit: Yes Status: Acute Priority: High Code(s): R78.81 - BACTEREMIA SNOMED Code(s): 7225049 (2) Hypotension Narrative/Plan: This is multifactorial. The patient likely has an element of adrenal insufficiency. In addition she has restrictive cardiomyopathy, and is likely very sensitive to even minor preload decreases. Therefore fluid status changes in her diarrhea, and/or dialysis can cause significant hypertension for her. In addition during this admission the patient was also septic. Currently with treatment of bacteremia, and fluid management with IV fluids and dialysis, have improved her hemodynamics. She continues to have issues with orthostasis especially on the days of dialysis. Nephrology is following. The patient is also on Midodrine Current Visit: Yes Status: Acute Priority: High Code(s): I95.9 - HYPOTENSION, UNSPECIFIED SNOMED Code(s): 00234883 (3) Multiple myeloma Narrative/Plan: The patient's treatment course since her diagnosis has been interrupted multiple times, due to several hospital admissions. However, despite frequent interruptions she has shown an excellent response, with marked decrease in light chain level. She will resume treatment once she has completed adequate treatment for bacteremia as recommended by ID. Current Visit: Yes Status: Acute Priority: High Code(s): C90.00 - MULTIPLE MYELOMA NOT HAVING ACHIEVED REMISSION SNOMED Code(s): 538394242 (4) Pancytopenia due to antineoplastic chemotherapy Narrative/Plan: The patient also likely has contributing factors from underlying myeloma, as well as bacteremia. Counts are in a safe range. WBC and platelets are showing slow improvement with increased time since last chemotherapy, as well as treatment of bacteremia. Continue to monitor with additional supportive treatments if needed Current Visit: Yes Status: Acute Code(s): D61.810 - ANTINEOPLASTIC CHEMOTHERAPY INDUCED PANCYTOPENIA; T45.1X5A - ADVERSE EFFECT OF ANTINEOPLASTIC AND IMMUNOSUP DRUGS, INIT SNOMED Code(s): 551102544744004 Plan: The case was discussed with the admitting service. At this time the plan is for the patient to have a short course of subacute rehab. She will continue di alysis during that time. This appears to be reasonable to try to improve her performance status, while she is go to be off chemotherapy anyway for at least a week or so. Plan was also discussed in detail with the patient and her
[2018-09-17] MEDS: MELATONIN 3 MG TABLET PO PRN (20:54)
--- NOTE | 2018-09-18 00:08 | PN ---
PROGRESS NOTE DATE OF SERVICE: 09/17/2018. REASON FOR FOLLOWUP: Providencia bacteremia. INTERVAL HISTORY: The patient is currently afebrile. Patient has been breathing comfortably. He has been complaining of feeling weak and tired. No energy. No chest pain. No abdominal pain and diarrhea has improved. PHYSICAL EXAMINATION: Blood pressure is 98/62 with a pulse of 80, temperature 98.4. She is 93% on room air. General description is a middle aged female, lying in bed in no distress. Respiratory system: Unlabored breathing. Clear to auscultation anteriorly. Heart S1, S2. Regular rate and rhythm. Abdomen soft, no tenderness. LABS: BUN of 30, creatinine 1.8. Blood culture repeat 09/08 has been negative. DIAGNOSTIC IMPRESSION AND PLAN: Patient with Providencia bacteremia with source possible PermCath. However, the blood culture has been negative making it to be less likely. The patient received about a week of IV Sublimaze. Currently on oral Cipro to finish a 2 week course of therapy with the plan for repeat blood cultures x1 a week after completing antibiotic for document of clearance and to make sure no recurrence of bacteremia. Continue supportive care. MMODL / IJN: [id number] /
[2018-09-18] MEDS: HYDROCORTISONE SUCCINATE 100 MG/2 ML VIAL IV SCH ×2 (00:13→07:47)
[2018-09-18] MEDS: LEVOTHYROXINE 50 MCG TAB PO SCH (05:53)
[2018-09-18] MEDS: ASPIRIN 81 MG PO SCH (07:45)
[2018-09-18] MEDS: ALLOPURINOL 100 MG TAB PO SCH (07:45)
[2018-09-18] MEDS: FOLIC ACID-VIT B COMPLEX-VIT C 1 CAP PO SCH (07:46)
[2018-09-18] MEDS: SEVELAMER 800 MG TAB PO SCH ×2 (07:46→12:24)
[2018-09-18] MEDS: LACTOBACILLUS ACIDOPH & BULGAR 1 EACH PACKET PO SCH (07:46)
[2018-09-18] MEDS: PANTOPRAZOLE 40 MG TABLET PO SCH (07:46)
[2018-09-18] MEDS: CHOLESTYRAMINE (WITH SUGAR) 4 GM PACKET PO SCH ×2 (07:46→12:24)
[2018-09-18] MEDS: MIDODRINE 5 MG TAB PO SCH ×2 (07:47→12:24)
[2018-09-18] MEDS: CIPROFLOXACIN HCL 500 MG TAB PO SCH (07:47)
[2018-09-18 08:09] LABS: Anisocytosis Slight; Basophils % (A) 0 %; Eosinophils % (A) 0 %; HCT 23.4 % (34.0-46.0); HGB 7.5 gm/dL (11.4-16.0); Hypochromasia Slight; Lymphocytes # (A) 0.1 k/uL (1.0-4.8); Lymphocytes % (A) 1 %; MCH 29.2 pg (25.0-35.0); MCHC 32.2 g/dL (31.0-37.0); MCV 90.7 fL (80.0-100.0); Monocytes # (A) 0.2 k/uL (0-1.0); Monocytes % (A) 3 %; Neutrophils # (A) 5.2 k/uL (1.3-7.7); Neutrophils % (A) 95 %; Poikilocytosis Slight; RBC 2.58 m/uL (3.80-5.40); WBC 5.5 k/uL (3.8-10.6)
[2018-09-18 08:11] LABS: Platelet Count 36 k/uL (150-450)
[2018-09-18 08:22] LABS: Albumin 2.7 g/dL (3.5-5.0); Calcium 8.3 mg/dL (8.4-10.2); Potassium 3.9 mmol/L (3.5-5.1); Total Bilirubin 2.3 mg/dL (0.2-1.3); Total Protein 4.5 g/dL (6.3-8.2)
[2018-09-18 09:15] LABS: Mixed Population RBC Present
--- NOTE | 2018-09-18 09:51 | P.PN ---
Subjective Patient is seen in follow-up for acute kidney injury, currently hemodialysis dependent. She is maintained on hemodialysis on a Tuesday schedule. She has been receiving dialysis on a daily basis for gradual ultrafiltration. Currently seen while undergoing hemodialysis. She is off Levophed. She is also receiving IV steroids. She remains oliguric. Blood culture is positive for providencia and urine culture is positive for Ent erobacter. Having loose bowel movements this morning. Vital signs are stable. General: The patient appeared well nourished and normally developed. HEENT: Head exam is unremarkable. Neck is without jugular venous distension. LUNGS: Lungs are clear to auscultation and percussion. Breath sounds decreased. HEART: Rate and Rhythm are regular. First and second heart sounds normal. No murmurs, rubs or gallops. ABDOMEN: Abdominal exam reveals normal bowel sounds. Non-tender and non- distended. EXTREMITITES: 2+ edema. Objective - Vital Signs Vital signs: Vital Signs Temp 97.8 F 09/18/18 05:00 Pulse 76 09/18/18 05:00 Resp 18 09/18/18 05:00 BP 106/72 09/18/18 05:00 Pulse Ox 93 L 09/18/18 05:00 Intake & Output 09/17/18 09/18/18 09/18/18 18:59 06:59 18:59 Intake Total 1065 500 Output Total 512 Balance 553 500 Weight 77 kg Intake: Oral 1065 500 Output: Urine 200 Stool 312 Other: Voiding Method Bedpan Bedpan # Voids 1 1 # Bowel Movements 1 - Labs CBC & Chem 7: 09/18/18 08:00 09/18/18 08:00 Labs: Abnormal Lab Results - Last 24 Hours (Table) 09/17/18 09/18/18 09/18/18 Range/Units 10:04 08:00 08:00 RBC 2.58 L (3.80-5.40) m/uL Hgb 7.5 L (11.4-16.0) gm/dL Hct 23.4 L (34.0-46.0) % RDW 18.0 H (11.5-15.5) % Plt Count 36 L (150-450) k/uL Lymphocytes # 0.1 L (1.0-4.8) k/uL Chloride 109 H 108 H (98-107) mmol/L BUN 30 H 33 H (7-17) mg/dL Creatinine 1.86 H 1.84 H (0.52-1.04) mg/dL Glucose 120 H 114 H (74-99) mg/dL Calcium 8.3 L 8.3 L (8.4-10.2) mg/dL Total Bilirubin 2.3 H (0.2-1.3) mg/dL ALT 56 H (9-52) U/L Alkaline Phosphatase 370 H (38-126) U/L Total Protein 4.5 L (6.3-8.2) g/dL Albumin 2.7 L (3.5-5.0) g/dL Assessment and Plan Plan: Assessment: 1. Acute kidney injury, currently hemodialysis dependent. Etiology is hypotension and multiple myeloma. 2. Hypotension maintained on midodrine as well as steroids. Off Levophed. 3. Volume overload secondary to hypoalbuminemia. She also has underlying infiltrative cardiomyopathy. Better with ultrafiltration. 4. Hypervolemic hyponatremia. Improved. 5. Anemia of chronic kidney disease maintained on Aranesp. Also related to underlying myeloma. S/p pRBC. No active bleeding. Stable. 6. Multiple myeloma. Oncology following. 7. Syncopal episode. Likely related to underlying hypotension. 8. Recent C. diff. s/p oral vancomycin. 9. Sepsis secondary to providencia bacteremia and Enterobacter UTI. On IV antibiotics. Plan: Currently seen while undergoing hemodialysis. Maintain midodrine. IV Solu-Cortef can be transitioned to oral Cortef 10 mg twice daily. Next hemodialysis will be on Tuesday. Potential discharge to rehab today.
--- NOTE | 2018-09-18 12:15 | P.DS ---
Providers Date of admission: 09/06/18 16:03 Expected date of discharge: 09/18/18 Attending physician: Steffi Melissa DO Consults: 09/06/18 14:22 Consult Physician Stat Consulting Provider: Iraj Munguia Consult Reason/Comments: Hypotensive, multiple melanoma, kidney failure Do you want consulting provider notified?: Yes Consult Physician Stat Consulting Provider: Pb Hernandez Consult Reason/Comments: Hypotensive, multiple melanoma Do you want consulting provider notified?: Yes 09/06/18 17:19 Consult Physician Routine Consulting Provider: Zuri Byers Consult Reason/Comments: hypotension Do you want consulting provider notified?: Already Contacted 09/07/18 07:23 Consult Physician Routine Consulting Provider: Marco Bradford Consult Reason/Comments: Gram neg bacteremia Do you want consulting provider notified?: Yes 09/14/18 10:55 Consult Physician Stat Consulting Provider: Brian Peterson Consult Reason/Comments: in patient rehab Do you want consulting provider notified?: Yes Primary care physician: [facility] Course: The patient is a 58 yo F with a PMH of recently diagnosed multiple myeloma, currently on chemotherapy with bortezomib, cyclophosphamide, and dexamethasone, 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 The patient was noted to be hypotensive upon EMS arrival. Nephrology and hematology were consulted and recommended 2 L of IV fluids and IV pressor support.The patient was recently hospitalized from 08/09 to 09/02 for myeloma related kidney dysfunction along with cardiology myopathy. She had received chemotherapy and was started on dialysis, along with being diagnosed with C. diff for which she completed a ten-day course of oral vancomycin. The patient was subsequently admitted to the medical ICU and was started on IV pressors. The patient's blood cultures initially grew gram-negative organisms after which infectious disease was consulted and the patient was started on ceftriaxone which was subsequently transitioned to cefepime. The blood culture resulted w/ provdencia as the patient continued to require Levophed. She was resumed on HD (ultrafiltration) as she remained oliguric. She was able to tolerate being off of Levophed for 45 minutes on 09/10 and the Levophed was held upwards of 12 hours on 09/11 after which she was restarted on it due to hypotension. The patient's hgb. The patient's Hgb dropped to 6.8 on 09/12 and 1 U of pRBCs was ordered. The patient's levophed requirements gradually decreased and she was taken off the drip on 09/12/18 @ 5 pm. The patient was downgraded to the Selective Unit on 09/14/18 after being off the Levophed infusion for 48 hours. The patient's Cefepime was transitioned to oral ciprofloxacin. The patient was subsequently transferred to the regular medicine floor on 09/16/2018. The patient was ready for discharge on 09/16/18, though was informed that she will need prior authorization for transfer to subacute rehab. The patient's Midodrine was changed to 10 mg TID and she was transitioned to Cortef 10 mg bid orally. He was seen and examined at the bedside on the day of discharge. She was in good spirits and noted continued bilateral lower extremity edema but otherwise denied additional complaints. She denied chest pain, shortness of one nausea, vomiting, fever, chills. 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 Patient Condition at Discharge: Stable Plan - Discharge Summary New Discharge Prescriptions: New Ciprofloxacin HCl [Cipro] 500 mg PO DAILY #7 tab Midodrine [ProAmatine] 15 mg PO AC-TID #42 tab Levothyroxine Sodium [Synthroid] 50 mcg PO DAILY@0630 #30 tab Hydrocortisone [Cortef] 10 mg PO BID #28 tablet Continue Aspirin [Adult Low Dose Aspirin EC] 81 mg PO DAILY Magnesium Oxide 400 mg PO DAILY Acyclovir 400 mg PO DAILY Allopurinol [Zyloprim] 100 mg PO DAILY Artificial Tears-Hypromellose [Artificial Tear Drops] 1 drops BOTH EYES TID PRN PRN Reason: DRY EYES Loperamide [Imodium] 2 mg PO Q4H PRN PRN Reason: Loose Stool Meclizine [Antivert] 12.5 mg PO TID PRN PRN Reason: DIZZINESS Pantoprazole Sodium [Protonix] 40 mg PO DAILY Polyethylene Glycol 3350 [Miralax] 17 gm PO DAILY PRN PRN Reason: Constipation Prochlorperazine [Compazine] 10 mg PO AC-TID Sennosides [Senna] 17.2 mg PO HS Sevelamer [Renvela] 800 mg PO TID-W/MEALS Acetaminophen with Codeine [Tylenol with Codeine #4 Tablet] 1 tab PO Q4H PRN #15 tablet PRN Reason: Pain Discontinued Levothyroxine Sodium [Synthroid] 25 mcg PO DAILY Midodrine HCl [ProAmatine] 10 mg PO TID Discharge Medication List Aspirin [Adult Low Dose Aspirin EC] 81 mg PO DAILY 03/08/16 [History] Acyclovir 400 mg PO DAILY 07/07/18 [History] Magnesium Oxide 400 mg PO DAILY 07/07/18 [History] Allopurinol [Zyloprim] 100 mg PO DAILY 08/04/18 [History] Artificial Tears-Hypromellose [Artificial Tear Drops] 1 drops BOTH EYES TID PRN 09/06/18 [History] Loperamide [Imodium] 2 mg PO Q4H PRN 09/06/18 [History] Meclizine [Antivert] 12.5 mg PO TID PRN 09/06/18 [History] Pantoprazole Sodium [Protonix] 40 mg PO DAILY 09/06/18 [History] Polyethylene Glycol 3350 [Miralax] 17 gm PO DAILY PRN 09/06/18 [History] Prochlorperazine [Compazine] 10 mg PO AC-TID 09/06/18 [History] Sennosides [Senna] 17.2 mg PO HS 09/06/18 [History] Sevelamer [Renvela] 800 mg PO TID-W/MEALS 09/06/18 [History] Acetaminophen with Codeine [Tylenol with Codeine #4 Tablet] 1 tab PO Q4H PRN #15 tablet 09/18/18 [Rx] Ciprofloxacin HCl [Cipro] 500 mg PO DAILY #7 tab 09/18/18 [Rx] Hydrocortisone [Cortef] 10 mg PO BID #28 tablet 09/18/18 [Rx] Levothyroxine Sodium [Synthroid] 50 mcg PO DAILY@0630 #30 tab 09/18/18 [Rx] Midodrine [ProAmatine] 15 mg PO AC-TID #42 tab 09/18/18 [Rx] Follow up Appointment(s)/Referral(s): Pb Hernandez MD [STAFF PHYSICIAN] - 09/21/18 2:30 pm [facility], [REFERRING] - 1 Week Cj Carroll MD [Primary Care Provider] - 1-2 days Patient Instructions/Handouts: Ciprofloxacin (By mouth), Levothyroxine (By mouth), Midodrine (By mouth), Hypotension (DC) Discharge Disposition: TRANSFER TO SNF/ECF
[2018-09-18 12:42] VITALS: BP 127/61; PULSE 98; RESP 18; TEMP 97.9
[2018-09-18] MEDS: LOPERAMIDE 2 MG CAP PO PRN (12:58)
--- NOTE | 2018-09-18 14:25 | P.PN ---
Subjective Progress Note Date: 09/18/18 Principal diagnosis: Amyloidisis and Lamda FLC Myeloma Overall improving. Patient eating lunch and getting ready for discharge to [facility]. Objective - Vital Signs Vital signs: Vital Signs Temp 97.9 F 09/18/18 12:41 Pulse 98 09/18/18 12:41 Resp 18 09/18/18 12:41 BP 127/61 09/18/18 12:41 Pulse Ox 95 09/18/18 12:27 Intake & Output 09/17/18 09/18/18 09/18/18 18:59 06:59 18:59 Intake Total 1065 500 Output Total 512 3000 Balance 553 500 -3000 Weight 77 kg Intake: Oral 1065 500 Output: Urine 200 Stool 312 Hemodialysis 3000 Other: Voiding Method Bedpan Bedpan Bedpan # Voids 1 1 # Bowel Movements 1 - Exam Gen: Alert and oriented Head: NCNT Neck: Supple Lungs: CTA Bilateral Abdomen S?ND EXT 3+ BLE Edema Neuro - Non focal - Labs CBC & Chem 7: 09/18/18 08:00 09/18/18 08:00 Labs: Abnormal Lab Results - Last 24 Hours (Table) 09/18/18 09/18/18 Range/Units 08:00 08:00 RBC 2.58 L (3.80-5.40) m/uL Hgb 7.5 L (11.4-16.0) gm/dL Hct 23.4 L (34.0-46.0) % RDW 18.0 H (11.5-15.5) % Plt Count 36 L (150-450) k/uL Lymphocytes # 0.1 L (1.0-4.8) k/uL Chloride 108 H (98-107) mmol/L BUN 33 H (7-17) mg/dL Creatinine 1.84 H (0.52-1.04) mg/dL Glucose 114 H (74-99) mg/dL Calcium 8.3 L (8.4-10.2) mg/dL Total Bilirubin 2.3 H (0.2-1.3) mg/dL ALT 56 H (9-52) U/L Alkaline Phosphatase 370 H (38-126) U/L Total Protein 4.5 L (6.3-8.2) g/dL Albumin 2.7 L (3.5-5.0) g/dL Microbiology - Last 24 Hours (Table) 09/12/18 15:28 Stool Culture - Final Stool Assessment and Plan Plan: Bacteremia Gram Negative Bacilli UTI: - Infectious Disease is following - COntinue antibiotic coverage Multiple myeloma - Diagnosis and treatment as outlined in HPI. Was due to complete cycle 1 of CyBorD this Tuesday, this will be held until infection cleared. 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 Syncopal Episode: - Likely related to Bacteremia and hypotension Hypotension: - Multifactorial; iAmloid of Kidneys, Component bacteremia - Adrenal Insuf ruled out Renal Amyloidosis Nephrology consulted Hyperbilirubinemia: - Likely secondary to Hypotension and medications, shock liver Thrombocytopenia: - Secondary to recent chemotherapu Diarrhea: - Check stool studies - C-diff neg - Add questran Plan: - Hold treatment while at [facility] and until completion of abx and repeat blood cultures. This is scheduled for dialysis tuesday - Follow-up with Dr. Hernandez next week as scheduled on 09.21.18 at 1430 Time with Patient: Greater than 30 (face to face counseling and cordinating with patient and )
--- NOTE | 2018-09-18 17:21 | PN ---
PROGRESS NOTE DATE OF SERVICE: 09/18/2018. REASON FOR FOLLOWUP: 1. Gram-negative bacteremia UTI. 2. Diarrhea. INTERVAL HISTORY: The patient is currently afebrile. The patient has been breathing comfortably. Denies having any chest pain or any cough. No nausea, no vomiting. No abdominal pain. However, the patient does complain of diarrhea; had about 4 loose stools this morning. PHYSICAL EXAMINATION: Blood pressure is 127/61 with a pulse of 90, temperature 97.9. She is 95% on room air. General description is a middle-aged female lying in bed in no distress. RESPIRATORY SYSTEM: Unlabored breathing. Clear to auscultation anteriorly. HEART: S1, S2. Regular rate and rhythm. ABDOMEN: Soft. No tenderness. LABS: Hemoglobin 7.5, white count 5.5, BUN of 33, creatinine 1.84. Stool for C difficile has been negative. Stool culture negative. DIAGNOSTIC IMPRESSION AND PLAN: 1. Patient with providencia bacteremia with enterobacter urinary tract infection Follow-up blood culture has been negative. The patient has received about 13 days of antibiotic. That should be more than enough. Cipro should be discontinued, as that may be contributing to some of her diarrhea. 2. Patient with diarrhea, possibly antibiotic-associated. May improve with discontinuation of oral antibiotic. Stool for C difficile will be checked. Continue with Joseran and monitor clinical course closely. MMODL / IJN: [id number] /
--- NOTE | 2018-09-19 12:01 | CDI ---
Documentation Clarification Form Date: 09/19/18 From: Mary Bates Phone: If you have a question regarding this query, please contact Mariza Nava at [phone] between 8am and 5pm. Admit Date: 09/06/2018 4:03:00 PM Patient Name: Oneida Styles Visit Number: [id number] Discharge Date: 09/18/2018 4:55:00 PM ATTENTION: The Clinical Documentation Specialists (CDI) and [facility] Coding Staff appreciate your assistance in clarifying documentation. Please respond to the clarification below the line at the bottom and electronically sign. The CDI & [facility] Coding staff will review the response and follow-up if needed. Please note: Queries are made part of the Legal Health Record. If you have any questions, please contact the author of this message via ITS. Dr. Ole Alcala The patient presented with presyncope due to septic shock. History/Risk Factors: Permacath for dependence on hemodialysis and UTI with urine growing Enterobacter aerogenes. Patient also has multiple myeloma and has been getting chemotherapy. Clinical Indicators: Hypotension, tachycardia, bacteremia WBC: 5.5 Lactic acid: 2.0 Blood cultures: Providencia rettgeri Vitals signs on admission: T. 98.8, P. 71 then up to 105 same day, R. 16, BP 81/43 Treatment: ID Consult: Documentation in Dr. Bradford's consult note and progress notes states the possible source of the bacteremia is the Permacath. Antibiotics: IV Cefepime, IV Ceftriaxone, IV Zosyn IV Bolus: 1 liter In your professional opinion, please clarify if the cause of the sepsis Dialysis catheter UTI Other, please specify Unable to determine -- patient will be getting repeat blood cultures as an outpatient which will allow us to determine this further MTDD
== END 2018-09-18 16:55 | DRG 871 ==
LOC: EC 09:46 → 3SCARD 16:03 → 2SICU 17:26 → 3SCARD 09-14 18:59 → 3NMEDONC 09-16 18:33
PROVIDERS: ADMIT Internal Medicine; ATTEND Internal Medicine
PROC: 5A1D70Z Performance of Urinary Filtration, Intermittent, Less than 6 Hours Per Day (ICD-10-PCS; principal; 2018-09-06)
PROC: 05H933Z Insertion of Infusion Device into Right Brachial Vein, Percutaneous Approach (ICD-10-PCS; 2018-09-11 13:00)
DX: A41.59 Other Gram-negative sepsis (principal); D61.810 Antineoplastic chemotherapy induced pancytopenia; N17.0 Acute kidney failure with tubular necrosis; N18.6 End stage renal disease; R65.21 Severe sepsis with septic shock; K72.00 Acute and subacute hepatic failure without coma; C90.00 Multiple myeloma not having achieved remission; E27.40 Unspecified adrenocortical insufficiency; E85.4 Organ-limited amyloidosis; E87.1 Hypo-osmolality and hyponatremia; I13.2 Hypertensive heart and chronic kidney disease with heart failure and with stage 5 chronic kidney disease, or end stage renal disease; I42.5 Other restrictive cardiomyopathy; I50.32 Chronic diastolic (congestive) heart failure; J98.11 Atelectasis; N39.0 Urinary tract infection, site not specified; E44.0 Moderate protein-calorie malnutrition; K52.1 Toxic gastroenteritis and colitis; D69.59 Other secondary thrombocytopenia; E88.09 Other disorders of plasma-protein metabolism, not elsewhere classified; D63.0 Anemia in neoplastic disease; T36.95XA Adverse effect of unspecified systemic antibiotic, initial encounter; D63.1 Anemia in chronic kidney disease; E03.9 Hypothyroidism, unspecified; E78.5 Hyperlipidemia, unspecified; E86.1 Hypovolemia; F41.1 Generalized anxiety disorder; I34.0 Nonrheumatic mitral (valve) insufficiency; T45.1X5A Adverse effect of antineoplastic and immunosuppressive drugs, initial encounter; R55 Syncope and collapse; Z68.27 Body mass index [BMI] 27.0-27.9, adult; R77.9 Abnormality of plasma protein, unspecified; Z79.82 Long term (current) use of aspirin; Z79.890 Hormone replacement therapy; Z79.899 Other long term (current) drug therapy; Z99.2 Dependence on renal dialysis; Z86.19 Personal history of other infectious and parasitic diseases
CPT/HCPCS: 36410; 36415; 71045; 71046; 76937; 80048; 80053; 81001; 82607; 82747; 83605; 83615; 83735; 83880; 83883; 84100; 84165; 84439; 84443; 85025; 85027; 85379; 85384; 85610; 85730; 86706; 86850; 86900; 86901; 86920; 87040; 87045; 87046; 87077; 87086; 87186; 87324; 87340; 90935; 93005; 93308; 93970; 96361; 96365; 96375; 99285